=== PATIENT | female | born 1945 | race Caucasian/White ===

== ENCOUNTER 2017-07-10 00:06 | Observation (INO) | payer OTHER ==
[~2017-07-10] VITALS: Ht 149.9 cm; Wt 78.9 kg
[~2017-07-10 00:06] MED LIST: ASPCH81X PO; CALC500C73 PO; CARV6.252 PO; CHOL100010 PO; HYDR25TA5 PO; LEVO25TA5 PO; LISI-789 PO; PANT40TA PO; PYRI100T4 PO
[2017-07-10] MEDS ORDERED: CHOL20007 PO (00:55)
[2017-07-10] MEDS ORDERED: CALC500C3 PO (00:57)
[2017-07-10 01:10] LABS: BASO % 0.2 %; BASO ABS # 0.01 K/uL (0-0.2); COMPLETE YES; EOS % 1.8 %; HEMATOCRIT 41.9 % (37-47); IG% 0.2 %; LYMPH % 34.6 %; MEAN CELL VOLUME 98.6 fL (80-100); MEAN CORPUSCULAR HEMOGLOBIN 31.5 pg (25-34); MEAN PLATELET VOLUME 10.2 fL (7.4-10.4); MONO % 8.5 %; NEUT % 54.7 %; PLATELET COUNT 180 K/uL (130-400); RED BLOOD COUNT 4.25 M/uL (4.2-5.4); WHITE BLOOD COUNT 4.92 K/uL (4.8-10.8)
[2017-07-10 01:30] LABS: ALT/SGPT 22 U/L (12-78); AST/SGOT 24 U/L (15-37); BLOOD UREA NITROGEN 17 mg/dl (7-18); BUN/CREATININE RATIO 17.7 (10-20); CALCIUM 8.8 mg/dl (8.5-10.1); CARBON DIOXIDE 30 mmol/L (21-32); CHLORIDE 99 mmol/L (98-107); CREATININE 0.98 mg/dl (0.60-1.20); GLUCOSE 111 mg/dl (70-99); MAGNESIUM 1.8 mg/dl (1.8-2.4); POTASSIUM 3.4 mmol/L (3.5-5.1); SODIUM 138 mmol/L (136-145)
[2017-07-10 01:35] LABS: ALB/GLOB RATIO 0.9 (0.9-2); ALKALINE PHOSPHATASE 61 U/L (45-117)
[2017-07-10 02:18] LABS: PROTHROMBIN TIME (PATIENT) 10.9 SECONDS (9.0-12.0)
[2017-07-10 03:20] LABS: URINE APPEARANCE CLEAR (CLEAR); URINE BILIRUBIN NEG (NEG); URINE COLOR YELLOW; URINE NITRITE NEG (NEG); URINE SPECIFIC GRAVITY 1.015 (1.000-1.030); UROBILINOGEN NEG (NEG); ZZUR CULT IF INDIC CLEAN CATCH NO
[2017-07-10 03:34] LABS: MANUAL MICROSCOPIC REQUIRED? NO; REVIEW REQ? NO
[2017-07-10] MEDS ORDERED: POTASSIUM CHLORIDE 10 MEQ TABCR PO STA (04:47)
[2017-07-10] MEDS ORDERED: POTASSIUM CHLORIDE 10 MEQ TABCR ONE (05:08)
[2017-07-10] MEDS ORDERED: CLONAZEPAM 0.5 MG TAB PO PRN (05:15)
[2017-07-10] MEDS ORDERED: IV FLUIDS COMPLETED PRN (05:45)
[2017-07-10 05:58] VITALS: BP 153/85; PULSE 76; TEMP 36.7; O2SAT 95; Ht 149.9 cm; Wt 78.9 kg
--- NOTE | 2017-07-10 06:01 | EMERGENCY ROOM VISIT NOTE ---
History Report prepared by Evelia: Lisseth Gaston Under the Supervision of: Dr. Kiera Blanca D.O. First contact with patient: 00:28 Chief Complaint: DIZZY Stated Complaint: LIGHT HEADED, PAIN IN ARM, WEAKNESS IN LEGS Nursing Triage Summary: c/o lightheadedness , pain in left arm, and discomfort in chest around 2130 last night. patient states she is having a pacemaker placed in july. History of Present Illness The patient is a 72 year old female who presents to the Emergency Room with complaints of intermittent dizziness for the past week. The patient had an echocardiogram last week. She was given a dye. Right after the echo, she started getting back spasms between her shoulders. She has never had these spasms before. She got up after the echo and her legs felt weak. She was able to walk down the quick, but her legs continued to feel weak. She has been feeling SOB with going up and down the steps at home since the echo. She has never felt this SOB before. She has been feeling lightheaded like she might pass out at times. This is not related to activity and has happened when she is at rest. She also feels off balance at times. She has chest heaviness sometimes. She also has some left arm weakness. She denies any leg pain, increased leg swelling, numbness, or tingling. She does have some leg swelling at baseline. She is on a water pill. She had some chills today. Yesterday she noticed that her arms were cold. Her arms did not change colors. She denies any falls. She has been having muscle spasms in her neck since October. She is scheduled for an MRI. She is getting a pacemaker defibrillator next month. Her heart functions at 20-24%. She has a history of PVCs and bundle branch block. She has not had a heart attack. She has had 3 cardiac catheterizations before which showed no blockage. She denies any recent medication changes. Source of History: patient Onset: 1 week ago Position: other (global) Quality: other (dizziness) Timing: intermittent Associated Symptoms: + chills, + chest pain, + SOB, + weakness, No numbness Note: Pt reports arms feel cold. Review of Systems See HPI for pertinent positives & negatives. A total of 10 systems reviewed and were otherwise negative. Past Medical & Surgical Medical Problems: (1) Breast cancer (2) Chest pain (3) GERD (gastroesophageal reflux disease) (4) HTN (hypertension) (5) Hypothyroidism (6) Nonischemic cardiomyopathy Surgical Problems: (1) S/P mastectomy Family History No pertinent family history stated. Social History Smoking Status: Never Smoker Marital Status: Current/Historical Medications Scheduled Aspirin (Aspirin Chewable), 81 MG PO QAM Calcium Carbonate (Tums), 1,250 MG PO DAILY Carvedilol (Coreg), 6.25 MG PO BID Cholecalciferol (Vitamin D3), 2,000 UNITS PO DAILY Hydrochlorothiazide (Hydrochlorothiazide), 1 TAB PO QAM Levothyroxine Sodium (Levothyroxine Sodium), 1 TAB PO QAM Lisinopril (Zestril), 1 TAB PO QAM Pantoprazole (Protonix), 40 MG PO QAM Pyridoxine (Vitamin B6), 100 MG PO QAM Allergies Coded Allergies: Adhesives (Verified Allergy, Unknown, WELTS AND PULLS SKIN, 07/10/17) BEE STING (Verified Allergy, Unknown, SWELLING, 07/10/17) Iodinated Diagnostic Agents (Verified Allergy, Unknown, HIVES, 07/10/17) Physical Exam Vital Signs Date Time Temp Pulse Resp B/P (MAP) Pulse Ox O2 Delivery O2 Flow Rate FiO2 07/10/17 04:33 73 07/10/17 04:21 78 20 141/98 98 Room Air 07/10/17 04:17 78 141/81 80 143/98 88 141/98 07/10/17 03:03 82 20 143/81 98 Room Air 07/10/17 01:24 74 07/10/17 01:18 69 20 153/78 94 Room Air 07/10/17 00:35 83 07/10/17 00:14 36.6 80 18 154/89 95 Room Air Physical Exam GENERAL: alert, well appearing, well nourished, no distress, non-toxic EYE EXAM: normal conjunctiva, PERRL and EOM's grossly intact OROPHARYNX: no exudate, no erythema, lips, buccal mucosa, and tongue normal and mucous membranes are moist NECK: supple, no nuchal rigidity, no adenopathy, non-tender LUNGS: Clear to auscultation. Normal chest wall mechanics HEART: no murmurs, S1 normal and S2 normal. Frequent PVCs on tele. ABDOMEN: abdomen soft, non-tender, normo-active bowel sounds, no masses, no rebound or guarding. BACK: Back is symmetrical on inspection and there is no deformity, no midline tenderness, no CVA tenderness. SKIN: no rashes and no bruising UPPER EXTREMITIES: upper extremities are grossly normal. LOWER EXTREMITIES: No pitting edema. NEURO EXAM: Normal sensorium, cranial nerves II-XII grossly intact, 5/5 strength , no ataxia, no subjective sensory difference. No obvious facial droop. No slurred speech. Medical Decision & Procedures ER Provider Diagnostic Interpretation: X-ray: I interpreted the following studies. Chest: A two view study of the chest was reviewed and was negative for cardiomegaly, effusion, or wide mediastinum. Slightly increased interstitial markings bilaterally. Radiology results have been interpreted by the [facility] radiologist and reviewed by me. CT Head: No ICH, mass effect, or edema. No skull fracture. Visualized sinuses and mastoid air cells are clear. Laboratory Results 07/10/17 00:25 Red Blood Count 4.25, Mean Corpuscular Volume 98.6, Mean Corpuscular Hemoglobin 31.5, Mean Corpuscular Hemoglobin Concent 32.0, Mean Platelet Volume 10.2, Neutrophils (%) (Auto) 54.7, Lymphocytes (%) (Auto) 34.6, Monocytes (%) (Auto) 8.5, Eosinophils (%) (Auto) 1.8, Basophils (%) (Auto) 0.2, Neutrophils # (Auto) 2.69, Lymphocytes # (Auto) 1.70, Monocytes # (Auto) 0.42, Eosinophils # (Auto) 0.09, Basophils # (Auto) 0.01 Test 07/10/17 00:25 07/10/17 01:27 07/10/17 03:05 White Blood Count 4.92 K/uL (4.8-10.8) Red Blood Count 4.25 M/uL (4.2-5.4) Hemoglobin 13.4 g/dL (12.0-16.0) Hematocrit 41.9 % (37-47) Mean Corpuscular Volume 98.6 fL (80-100) Mean Corpuscular Hemoglobin 31.5 pg (25-34) Mean Corpuscular Hemoglobin Concent 32.0 g/dl (32-36) Platelet Count 180 K/uL (130-400) Mean Platelet Volume 10.2 fL (7.4-10.4) Neutrophils (%) (Auto) 54.7 % Lymphocytes (%) (Auto) 34.6 % Monocytes (%) (Auto) 8.5 % Eosinophils (%) (Auto) 1.8 % Basophils (%) (Auto) 0.2 % Neutrophils # (Auto) 2.69 K/uL (1.4-6.5) Lymphocytes # (Auto) 1.70 K/uL (1.2-3.4) Monocytes # (Auto) 0.42 K/uL (0.11-0.59) Eosinophils # (Auto) 0.09 K/uL (0-0.5) Basophils # (Auto) 0.01 K/uL (0-0.2) RDW Standard Deviation 49.9 fL (36.4-46.3) RDW Coefficient of Variation 14.0 % (11.5-14.5) Immature Granulocyte % (Auto) 0.2 % Immature Granulocyte # (Auto) 0.01 K/uL (0.00-0.02) Magnesium Level 1.8 mg/dl (1.8-2.4) Total Bilirubin 0.3 mg/dl (0.2-1) Aspartate Amino Transf (AST/SGOT) 24 U/L (15-37) Alanine Aminotransferase (ALT/SGPT) 22 U/L (12-78) Alkaline Phosphatase 61 U/L (45-117) Pro-B-Type Natriuretic Peptide 2251 pg/ml (0-900) Total Protein 7.3 gm/dl (6.4-8.2) Albumin 3.4 gm/dl (3.4-5.0) Globulin 3.9 gm/dl (2.5-4.0) Albumin/Globulin Ratio 0.9 (0.9-2) Prothrombin Time 10.9 SECONDS (9.0-12.0) Prothromb Time International Ratio 1.0 (0.9-1.1) Urine Color YELLOW Urine Appearance CLEAR (CLEAR) Urine pH 7.0 (4.5-7.5) Urine Specific [place] 1.015 (1.000-1.030) Urine Protein NEG (NEG) Urine Glucose (UA) NEG (NEG) Urine Ketones NEG (NEG) Urine Occult Blood NEG (NEG) Urine Nitrite NEG (NEG) Urine Bilirubin NEG (NEG) Urine Urobilinogen NEG (NEG) Urine Leukocyte Esterase TRACE (NEG) Urine WBC (Auto) 1-5 /hpf (0-5) Urine RBC (Auto) 0-4 /hpf (0-4) Urine Hyaline Casts (Auto) 0 /lpf (0-5) Urine Epithelial Cells (Auto) 5-10 /lpf (0-5) Urine Bacteria (Auto) NEG (NEG) Laboratory results per my review. ECG Indication: weakness Rate (beats per minute): 72 Rhythm: sinus rhythm Findings: LBBB, PVC (frequent), no acute ischemic change, other (normal axis) Comparison ECG Date: no prior available ED Course 0032: The patient was evaluated in room A10. A complete history and physical exam was performed. 0048: According to case management, we no longer have access to [facility] patient records. 0313: I reevaluated the patient. I updated her on the results. 0431: I reviewed the patient's case with Dr. Joe, [facility]. He will evaluate the patient for further management. Medical Decision Differential Diagnosis includes but is not limited to dehydration, stroke, anemia, hypoglycemia, hyponatremia, hypernatremia, urinary tract infection, pneumonia, bronchitis, sepsis, gastroenteritis, additional abdominal pathology, metabolic abnormalities and infections. Patient with long complicated medical history, acutely more complicated by our inability to access her prior and most recent records including an echo as well as blood work. Patient with worsening symptoms here, already scheduled to see cardiology in 2 weeks. It seems less likely patient's symptoms acutely worsened over this last 2 weeks, or that she is having a complication related to the echo, patient denies any other medication changes, dietary changes, illness, or trauma to otherwise explain her symptoms. Doubt ACS, CVA, dissection, bacteremia/sepsis. Patient with elevated BNP, however this is most likely chronic given her cardiomyopathy and poor EF, however I cannot see prior records to compare. Patient not hypoxic and stable vital signs here. Discussed the situation with the [facility]ist who will evaluate the patient and check old records to help determine disposition. Medication Reconcilliation Current Medication List: was personally reviewed by me Blood Pressure Screening Patient's blood pressure: Elevated blood pressure Blood pressure disposition: Elevated BP felt to be situational Consults Time Called: [phone] Consulting Physician: Dr. Joe [facility] hospitalist Returned Call: [phone] I reviewed the patient's case with him. He will evaluate the patient for further management. Impression Primary Impression: Lower extremity weakness Additional Impressions: Lightheadedness Headache Back pain Cardiomyopathy [id number] (dyspnea on exertion) Scribe Attestation The scribe's documentation has been prepared under my direction and personally reviewed by me in its entirety. I confirm that the note above accurately reflects all work, treatment, procedures, and medical decision making performed by me. Departure Information Dispostion Being Evaluated By Hospitalist Jimi Porter M.D. (PCP) Patient Instructions My [facility] Problem Qualifiers Primary Impression: Lower extremity weakness Laterality: bilateral Qualified Codes: R29.898 - Other symptoms and signs involving the musculoskeletal system Additional Impressions: Headache Headache type: unspecified Headache chronicity pattern: episodic headache Intractability: not intractable Qualified Codes: R51 - Headache Back pain Back pain location: low back pain Chronicity: chronic Back pain laterality : bilateral Sciatica presence: without sciatica Qualified Codes: M54.5 - Low back pain; G89.29 - Other chronic pain Cardiomyopathy Cardiomyopathy type: unspecified Qualified Codes: I42.9 - Cardiomyopathy, unspecified
--- NOTE | 2017-07-10 06:22 | History and Physical ---
History & Physical Date & Time of Service: Jul 10, 2017 at 06:07 Chief Complaint: Chest Pain, Nonischemic Cardiomyopathy Primary Care Physician: Jimi Woodward M.D. History of Present Illness Source: patient, family, clinic records, hospital records This is a 72 year old female with a PMH of nonischemic cardiomyopathy with an EF of 20-24%, HTN, hypothyroidism, cervicalgia - presents with a few week history of lightheadedness, weakness, and muscle aches. On 06/29 - she had an echo, which showed her EF to be low at 20-24%. She was to see transition specialist on July 22 for a biventricular pacer placement. She states that since the echo w / contrast - she's been having unusual symptoms including dyspnea with exertion , chest pressure, numbness and weakness in b/l LE and LUE. She states that she was doing fine prior to this. As per , he states that he is stressed due to the news of her low EF as well as having to take care of him as he has a broken R wrist. She states that it's possible stress is playing a part, though she is not sure if that is the only thing. Currently, she is resting comfortably. Past Medical/Surgical History Medical Problems: (1) Breast cancer Status: Resolved (2) GERD (gastroesophageal reflux disease) Status: Chronic (3) HTN (hypertension) Status: Chronic (4) Hypothyroidism Status: Chronic Surgical Problems: (1) S/P mastectomy Status: Resolved Social History Smoking Status: Never Smoker Marital Status: Multi-Drug Resistant Organisms History of MDRO: No Allergies Coded Allergies: Adhesives (Verified Allergy, Unknown, WELTS AND PULLS SKIN, 07/10/17) BEE STING (Verified Allergy, Unknown, SWELLING, 07/10/17) Iodinated Diagnostic Agents (Verified Allergy, Unknown, HIVES, 07/10/17) Home Medications Scheduled Aspirin (Aspirin Chewable), 81 MG PO QAM Calcium Carbonate (Tums), 1,250 MG PO DAILY Carvedilol (Coreg), 6.25 MG PO BID Cholecalciferol (Vitamin D3), 2,000 UNITS PO DAILY Hydrochlorothiazide (Hydrochlorothiazide), 1 TAB PO QAM Levothyroxine Sodium (Levothyroxine Sodium), 1 TAB PO QAM Lisinopril (Zestril), 1 TAB PO QAM Pantoprazole (Protonix), 40 MG PO QAM Pyridoxine (Vitamin B6), 100 MG PO QAM Review of Systems Constitutional: No fever, No chills, No sweats, No weight loss, No weakness, No fatigue Respiratory: + shortness of breath, + dyspnea on exertion, No cough, No sputum , No wheezing, No dyspnea at rest, No hemoptysis Cardiovascular: + chest pain, No orthopnea, No edema, No palpitations Abdomen: No pain, No nausea, No vomiting, No diarrhea, No constipation, No GI bleeding Musculoskeletal: + joint pain (chronic neck pain), + muscle pain (bilateral LE muscle weakness) Genitourinary - Female: No dysuria, No urinary frequency, No urinary urgency, No urinary incontinence, No urinary retention, No hematuria Neurologic: + weakness, + numbness/tingling, No memory loss, No paralysis, No vertigo, No balance problems Psychiatric: No depression symptoms Endocrine: No fatigue Hematologic / Lymphatic: No abnormal bleeding/bruising Integumentary: No rash Allergic / Immunologic: No environmental allergies, No seasonal allergies Physical Exam Vital Signs Date Time Temp Pulse Resp B/P (MAP) Pulse Ox O2 Delivery O2 Flow Rate FiO2 07/10/17 05:35 82 20 152/89 95 Room Air 07/10/17 04:33 73 07/10/17 04:21 78 20 141/98 98 Room Air 07/10/17 04:17 78 141/81 80 143/98 88 141/98 07/10/17 03:03 82 20 143/81 98 Room Air 07/10/17 01:24 74 07/10/17 01:18 69 20 153/78 94 Room Air 07/10/17 00:35 83 07/10/17 00:14 36.6 80 18 154/89 95 Room Air General Appearance: WD/WN, no apparent distress Head: normocephalic, atraumatic Eyes: normal inspection ENT: hearing grossly normal Neck: supple Respiratory/Chest: chest non-tender, lungs clear, normal breath sounds, no respiratory distress, no accessory muscle use Cardiovascular: regular rate, rhythm, no edema, no gallop, no JVD, no murmur, normal peripheral pulses Abdomen/GI: normal bowel sounds, non tender, soft Extremities/Musculoskelatal: normal inspection, no calf tenderness, normal capillary refill, no pedal edema, normal range of motion Neurologic/Psych: network consultant II-XII nml as tested, no motor/sensory deficits, alert, normal mood/affect, oriented x 3, + pertinent finding Skin: normal color Lymphatic: no adenopathy Diagnostics Laboratory Results Results Past 24 Hours Test 07/10/17 00:25 07/10/17 01:27 07/10/17 03:05 Range/Units White Blood Count 4.92 4.8-10.8 K/uL Red Blood Count 4.25 4.2-5.4 M/uL Hemoglobin 13.4 12.0-16.0 g/dL Hematocrit 41.9 37-47 % Mean Corpuscular Volume 98.6 80-100 fL Mean Corpuscular Hemoglobin 31.5 25-34 pg Mean Corpuscular Hemoglobin Concent 32.0 32-36 g/dl Platelet Count 180 130-400 K/uL Mean Platelet Volume 10.2 7.4-10.4 fL Neutrophils (%) (Auto) 54.7 % Lymphocytes (%) (Auto) 34.6 % Monocytes (%) (Auto) 8.5 % Eosinophils (%) (Auto) 1.8 % Basophils (%) (Auto) 0.2 % Neutrophils # (Auto) 2.69 1.4-6.5 K/uL Lymphocytes # (Auto) 1.70 1.2-3.4 K/uL Monocytes # (Auto) 0.42 0.11-0.59 K/uL Eosinophils # (Auto) 0.09 0-0.5 K/uL Basophils # (Auto) 0.01 0-0.2 K/uL RDW Standard Deviation 49.9 36.4-46.3 fL RDW Coefficient of Variation 14.0 11.5-14.5 % Immature Granulocyte % (Auto) 0.2 % Immature Granulocyte # (Auto) 0.01 0.00-0.02 K/uL Sodium Level 138 136-145 mmol/L Potassium Level 3.4 3.5-5.1 mmol/L Chloride Level 99 98-107 mmol/L Carbon Dioxide Level 30 21-32 mmol/L Anion Gap 9.0 3-11 mmol/L Blood Urea Nitrogen 17 7-18 mg/dl Creatinine 0.98 0.60-1.20 mg/dl Est Creatinine Clear Calc Drug Dose 46.9 ml/min Estimated GFR () 66.3 Estimated GFR (Non- 57.2 BUN/Creatinine Ratio 17.7 10-20 Random Glucose 111 70-99 mg/dl Calcium Level 8.8 8.5-10.1 mg/dl Magnesium Level 1.8 1.8-2.4 mg/dl Total Bilirubin 0.3 0.2-1 mg/dl Aspartate Amino Transf (AST/SGOT) 24 15-37 U/L Alanine Aminotransferase (ALT/SGPT) 22 12-78 U/L Alkaline Phosphatase 61 45-117 U/L Troponin I < 0.015 0-0.045 ng/ml Pro-B-Type Natriuretic Peptide 2251 0-900 pg/ml Total Protein 7.3 6.4-8.2 gm/dl Albumin 3.4 3.4-5.0 gm/dl Globulin 3.9 2.5-4.0 gm/dl Albumin/Globulin Ratio 0.9 0.9-2 Prothrombin Time 10.9 9.0-12.0 SECONDS Prothromb Time International Ratio 1.0 0.9-1.1 Urine Color YELLOW Urine Appearance CLEAR CLEAR Urine pH 7.0 4.5-7.5 Urine Specific [place] 1.015 1.000-1.030 Urine Protein NEG NEG Urine Glucose (UA) NEG NEG Urine Ketones NEG NEG Urine Occult Blood NEG NEG Urine Nitrite NEG NEG Urine Bilirubin NEG NEG Urine Urobilinogen NEG NEG Urine Leukocyte Esterase TRACE NEG Urine WBC (Auto) 1-5 0-5 /hpf Urine RBC (Auto) 0-4 0-4 /hpf Urine Hyaline Casts (Auto) 0 0-5 /lpf Urine Epithelial Cells (Auto) 5-10 0-5 /lpf Urine Bacteria (Auto) NEG NEG Diagnostic Radiology Head CT = no acute findings CXR normal EKG Sinus rhythm with frequent Premature ventricular complexes Left bundle branch block No change from prior EKG Impression Assessment and Plan This is a 72 year old female with a PMH of nonischemic cardiomyopathy with an EF of 20-24%, HTN, hypothyroidism, cervicalgia - presents with a few week history of lightheadedness, weakness, and muscle aches. Lightheadedness patient presents with lightheadedness as well as a multitude of symptoms including muscle aches, weakness, numbness/tingling, chest pressure/dyspnea on exertion some of these symptoms are likely related to her nonischemic cardiomyopathy and low EF she may also have some underlying anxiety due to stress and the news of pacer placement added Klonopin PRN as needed - may need this on discharge for short term Chest Pressure r/o ACS will monitor in tele trend cardiac enzymes recent echo noted on 06/29 with EF of 20-24% cardiology consulted Nonischemic Cardiomyopathy EF of 20-24% currently on Coreg and Lisinopril which we will keep she is to have a biventricular pacer on July 22 cardiology consulted for possible insertion while admitted here HTN continue HCTZ, Coreg, Lisinopril Hypothyroidism TSH wnl as outpatient continue current dose of Synthroid DVT ppx Lovenox FULL CODE VTE Prophylaxis VTE Risk Assessment Done? Y/N: Yes Risk Level: Low
[2017-07-10] MEDS: LEVOTHYROXINE 25 MCG TAB PO SCH (06:32)
--- NOTE | 2017-07-10 06:48 | DIAGNOSTIC IMAGING REPORT ---
CHEST ONE VIEW PORTABLE CLINICAL HISTORY: sob dyspnea COMPARISON STUDY: No previous studies for comparison. FINDINGS: The bones soft tissues and hemidiaphragms are normal. The cardiomediastinal silhouette is normal. The lungs are clear. The pulmonary vasculature is normal. IMPRESSION: Negative chest. The above report was generated using voice recognition software. It may contain grammatical, syntax or spelling errors. Electronically signed by: Jimi Gonzalez M.D. 07/10/2017 6:47 AM Dictated Date/Time: 07/10/2017 6:47 AM
--- NOTE | 2017-07-10 07:07 | DIAGNOSTIC IMAGING REPORT ---
CT OF THE HEAD WITHOUT CONTRAST CLINICAL HISTORY: Frontal headache. Lightheaded. COMPARISON STUDY: No previous studies for comparison. CT DOSE: 537.48 mGy.cm TECHNIQUE: Helical axial images of the head were obtained without IV contrast. Automated exposure control was utilized for the study. A dose lowering technique was utilized adhering to the principles of ALARA. FINDINGS: No acute intracranial hemorrhage, midline shift or mass effect is present. Ventricular system is normal. Basilar cisterns are patent. There are no extra-axial collections. Figueroa-white differentiation is maintained. There are no findings to suggest acute dural sinus thrombosis or acute territorial infarct. There is no calvarial fracture. Visualized portions of the sinuses and mastoid air cells are clear. IMPRESSION: No acute intracranial findings. Electronically signed by: Golden Larsen M.D. 07/10/2017 7:05 AM Dictated Date/Time: 07/10/2017 7:04 AM
[2017-07-10 07:24] VITALS: BP 133/74; PULSE 79; TEMP 36.9; O2SAT 93
[2017-07-10] MEDS ORDERED: LISINOPRIL 2.5 MG TAB PO SCH (09:00)
[2017-07-10] MEDS: CALCIUM CARBONATE 500 MG CHEWABLE PO SCH (09:46)
[2017-07-10] MEDS: PANTOprazole SOD 40 MG TAB PO SCH (09:46)
[2017-07-10] MEDS: CARVEDILOL 6.25 MG TAB PO SCH ×2 (09:46→20:50)
[2017-07-10] MEDS: HYDROCHLOROTHIAZIDE 25 MG TAB PO SCH (09:46)
[2017-07-10] MEDS: PYRIDOXINE HCL 50 MG TAB PO SCH (09:46)
[2017-07-10] MEDS: ENOXAPARIN 40 MG/0.4 ML SYR SC SCH (09:47)
[2017-07-10] MEDS: ASPIRIN 81 MG CHEW PO SCH (09:51)
--- NOTE | 2017-07-10 10:42 | CARDIOLOGY CONSULTATION ---
DATE OF CONSULTATION: 07/10/2017 CONSULTATION FOR: [facility] hospitalist. REASON FOR CONSULTATION: Weakness and dizziness. HISTORY OF PRESENT ILLNESS: This is a 72-year-old female who is usually followed by Dr. Gonsalez through the [facility]. She has a history of a nonischemic cardiomyopathy with an estimated left ventricular ejection fraction of 20%-24%. She also has a chronic left bundle branch block. The patient underwent a routine echo on Thursday, when she had a reaction to the contrast utilized for the echo. She had back pain over her flank bilaterally, which is consistent with that reaction. It usually clears in several minutes and there is no major sequelae. The patient went home and has not been feeling well. She had seen Dr. Espinoza earlier and there was a recommendation for biventricular pacemaker, which is scheduled on July. The patient has been experiencing radicular cervical discomfort with dizziness and previously had been scheduled for an MRI by her primary care physician of the cervical spine. The patient has not had that procedure completed. She was admitted with the above symptoms along with some weakness. She has had some chronic dyspnea on exertion, which could be attributed to her cardiomyopathy. She denies orthopnea or lower extremity edema. She has had no chest pain. ALLERGIES: ADHESIVES, BEE STINGS, AND IODINATED CONTRAST DYES. PAST MEDICAL HISTORY: The patient has a history of breast cancer, which was treated with radiation and chemotherapy. As outlined above, she has had chronic cervical discomfort radiating into her arms and associated with dizziness. She has a history of GERD and hypertension. She has treated hypothyroidism and is status post mastectomy for her breast cancer. She has had a longstanding history of a nonischemic cardiomyopathy and in 2011, had a cardiac catheterization that showed normal coronaries. She has a chronic left bundle branch block and mild to moderate mitral regurgitation. SOCIAL HISTORY: She is and lives with her . She is a never smoker. FAMILY MEDICAL HISTORY: Noncontributory. REVIEW OF SYSTEMS: A 10-point review of systems is negative except for the history of chief complaint. PHYSICAL EXAMINATION: GENERAL: She is alert and oriented. VITAL SIGNS: Blood pressure is 140/90 and pulse is regular at 70 beats per minute. She is afebrile. HEENT: She is normocephalic. Pupils are equal and reactive to light. Extraocular muscles are intact bilaterally. NECK: The neck veins are flat. Carotids have good upstrokes bilaterally without bruits. Thyroid is nonpalpable. RESPIRATORY: Breath sounds equal bilaterally and clear to auscultation. CARDIOVASCULAR: Heart has a regular rhythm. Normal S1 and S2. No S3 or S4. No cardiac rubs or murmurs. GASTROINTESTINAL: Abdomen is soft and nontender without organomegaly. EXTREMITIES: Free of edema, digit clubbing, or cyanosis. NEUROLOGIC: Grossly intact. SKIN: Warm to touch. LYMPH NODES: Negative to palpation. LABORATORY DATA: Hemoglobin is 13.4, WBC count is 4.92, and platelets are 180,000. Creatinine 0.98, BUN is 17, and potassium is 3.4. IMPRESSION: 1. Nonischemic cardiomyopathy with severe systolic heart failure. 2. Left bundle branch block. 3. Scheduled for biventricular pacemaker early in July. 4. Cervical radiculopathy. 5. History of breast cancer. 6. Treated hypothyroidism. RECOMMENDATIONS: The patient was scheduled for an MRI of a cervical spine as an outpatient. I think we should do that while she is here in the hospital and have neurology see her for cervical radiculopathy. She should have the MRI here in the hospital before she has her ICD implanted, so that there is no confusion regarding the ICD and an MRI scan. She is on a very low dose of lisinopril. Her last dosage was yesterday morning. I think we should take this opportunity to switch her over to Entresto. By this evening, it will be approximately 36 hours since her last dose of the lisinopril and therefore, I think we can start Entresto tonight. We will have further recommendations following the above.
[2017-07-10 11:29] LABS: CKMB/CK RATIO 1.2 (0-3.0)
--- NOTE | 2017-07-10 11:43 | DIAGNOSTIC IMAGING REPORT ---
CERVICAL SPINE COMBO HISTORY: Pain. Neuropathy. cervical radiculopathy, hx of breast ca TECHNIQUE: Multiplanar multisequence MRI of the cervical spine was performed both before and after the use of intravenous contrast. COMPARISON STUDY: None. FINDINGS: Moderate degenerative disc changes throughout the entire cervical region. No bone marrow replacing process. Signal characteristics of the cervical cord are unremarkable. Slight heterogeneity on the inversion recovery sagittal images felt to be primarily artifactual. This is not seen on the transaxial images. No abnormal postcontrast sagittal enhancement. C2-C3: No significant central canal or neural foraminal narrowing. C3-C4: Slight broad-based disc bulge. Contact with but no deformity of the cervical cord. Neural foramina patent bilaterally. C4-C5: Minimal disc bulge. No significant impact with any no element. C5-C6: Mild broad-based disc herniation. Mild impact anterior cervical cord with narrowing of the neuroforamina bilaterally area C6-C7: Moderate broad-based right central disc herniation. Mild impact anterior aspect cervical cord. Moderate narrowing of the neuroforamina bilaterally. C7-T1: No significant central canal or neural foraminal narrowing. IMPRESSION: 1. Mild broad-based disc herniations C5-C6 and C6-C7. 2. At both levels there is moderate narrowing of the neuroforamina bilaterally and minimal impact upon the anterior cervical cord. 3. No abnormal postcontrast enhancement. 4. Generalized degenerative disc change throughout The above report was generated using voice recognition software. It may contain grammatical, syntax or spelling errors. Electronically signed by: Jimi Gonzalez M.D. 07/10/2017 11:42 AM Dictated Date/Time: 07/10/2017 11:38 AM
[2017-07-10] MEDS ORDERED: GADAVIST IV PRN (11:45)
[2017-07-10 11:53] VITALS: BP 124/72; PULSE 66; TEMP 36.8; O2SAT 94
--- NOTE | 2017-07-10 15:34 | Progress Note ---
Medicine Progress Note Date & Time of Visit: Jul 10, 2017 at 11:48. Subjective Pt was seen and examined Sitting in bed comfortable with no distress Pt said she feels better today compared to last night when she came She denies any chest pain, palpitation, dizziness and SOB Objective Last 8 Hrs Date Time Temp Pulse Resp B/P (MAP) Pulse Ox O2 Delivery O2 Flow Rate FiO2 07/10/17 12:30 Room Air 07/10/17 11:53 36.8 66 20 124/72 (89) 94 Room Air 07/10/17 08:30 Room Air 07/10/17 07:24 36.9 79 20 133/74 (93) 93 Room Air Physical Exam: General- No acute distress Head- atraumatic Eyes- PERRL, EOMI ENT- oropharynx clear Neck- supple, no JVD Lungs- clear to auscultation Heart- regular rhythm Abdomen- normal bowel sounds, soft Extremities- no calf tenderness Neuro- alert, oriented x 3; PERRL, EOMI; no facial palsy Skin- warm & dry Laboratory Results: Last 24 Hours Test 07/10/17 00:25 07/10/17 01:27 07/10/17 03:05 07/10/17 10:36 White Blood Count 4.92 K/uL Red Blood Count 4.25 M/uL Hemoglobin 13.4 g/dL Hematocrit 41.9 % Mean Corpuscular Volume 98.6 fL Mean Corpuscular Hemoglobin 31.5 pg Mean Corpuscular Hemoglobin Concent 32.0 g/dl Platelet Count 180 K/uL Mean Platelet Volume 10.2 fL Neutrophils (%) (Auto) 54.7 % Lymphocytes (%) (Auto) 34.6 % Monocytes (%) (Auto) 8.5 % Eosinophils (%) (Auto) 1.8 % Basophils (%) (Auto) 0.2 % Neutrophils # (Auto) 2.69 K/uL Lymphocytes # (Auto) 1.70 K/uL Monocytes # (Auto) 0.42 K/uL Eosinophils # (Auto) 0.09 K/uL Basophils # (Auto) 0.01 K/uL RDW Standard Deviation 49.9 fL RDW Coefficient of Variation 14.0 % Immature Granulocyte % (Auto) 0.2 % Immature Granulocyte # (Auto) 0.01 K/uL Sodium Level 138 mmol/L Potassium Level 3.4 mmol/L Chloride Level 99 mmol/L Carbon Dioxide Level 30 mmol/L Anion Gap 9.0 mmol/L Blood Urea Nitrogen 17 mg/dl Creatinine 0.98 mg/dl Est Creatinine Clear Calc Drug Dose 46.9 ml/min Estimated GFR () 66.3 Estimated GFR (Non- 57.2 BUN/Creatinine Ratio 17.7 Random Glucose 111 mg/dl Calcium Level 8.8 mg/dl Magnesium Level 1.8 mg/dl Total Bilirubin 0.3 mg/dl Aspartate Amino Transf (AST/SGOT) 24 U/L Alanine Aminotransferase (ALT/SGPT) 22 U/L Alkaline Phosphatase 61 U/L Troponin I < 0.015 ng/ml < 0.015 ng/ml Pro-B-Type Natriuretic Peptide 2251 pg/ml Total Protein 7.3 gm/dl Albumin 3.4 gm/dl Globulin 3.9 gm/dl Albumin/Globulin Ratio 0.9 Prothrombin Time 10.9 SECONDS Prothromb Time International Ratio 1.0 Urine Color YELLOW Urine Appearance CLEAR Urine pH 7.0 Urine Specific [place] 1.015 Urine Protein NEG Urine Glucose (UA) NEG Urine Ketones NEG Urine Occult Blood NEG Urine Nitrite NEG Urine Bilirubin NEG Urine Urobilinogen NEG Urine Leukocyte Esterase TRACE Urine WBC (Auto) 1-5 /hpf Urine RBC (Auto) 0-4 /hpf Urine Hyaline Casts (Auto) 0 /lpf Urine Epithelial Cells (Auto) 5-10 /lpf Urine Bacteria (Auto) NEG Total Creatine Kinase 194 U/L Creatine Kinase MB 2.3 ng/ml Creatine Kinase MB Ratio 1.2 Assessment & Plan Nonischemic Cardiomyopathy with Severe Systolic heart failure Present with chest pressure and dyspnea on presentation Recent echo noted on 06/29 with EF of 20-24% Troponin negativex2 cardiology on board Lisinopril d/c by cardio Starting on sto Continue Coreg Schedule for biventricular pacer on July 22 Continue monitor in telemetry Lightheadedness Resolved Anxiety Pt has been under a lot of stress lately Staring Elie prn Neck Tenderness MRI of the neck showed Mild broad-based disc herniations C5-C6 and C6-C7. At both levels there is moderate narrowing of the neuroforaminal bilaterally and minimal impact upon the anterior cervical cord. Neuro consulted stable Chest Pressure Possible related to anxiety Troponin negative EKG showed no ST changes recent echo noted on 06/29 with EF of 20-24% On ASA and carvedilol Resolved HTN continue HCTZ, Coreg D/C Lisinopril Starting on Entresto Hypothyroidism TSH wnl as outpatient continue current dose of Synthroid DVT ppx Lovenox FULL CODE Consultants: cardio Current Inpatient Medications: Current Inpatient Medications Medications (Trade) Dose Ordered Sig/Zayra Route Start Time Stop Time Status Last Admin Dose Admin Enoxaparin Sodium (Lovenox Inj) 40 mg Q24H SC 07/10/17 09:00 08/09/17 08:59 07/10/17 09:47 40 MG Aspirin (Aspirin Chew) 81 mg QAM PO 07/10/17 09:00 08/09/17 08:59 07/10/17 09:51 81 MG Calcium Carbonate (Tums Chew Tab) 1,250 mg DAILY PO 07/10/17 09:00 08/09/17 08:59 07/10/17 09:46 1,250 MG Carvedilol (Coreg Tab) 6.25 mg BID PO 07/10/17 09:00 08/09/17 08:59 07/10/17 09:46 6.25 MG Hydrochlorothiazide (Hydrochlorothiazide Tab) 25 mg QAM PO 07/10/17 09:00 08/09/17 08:59 07/10/17 09:46 25 MG Levothyroxine Sodium (Synthroid Tab) 25 mcg DAILYBB PO 07/10/17 06:00 08/09/17 05:59 07/10/17 06:32 25 MCG Pantoprazole Sodium (Protonix Tab) 40 mg QAM PO 07/10/17 09:00 08/09/17 08:59 07/10/17 09:46 40 MG Pyridoxine HCl (Vitamin B-6 Tab) 100 mg QAM PO 07/10/17 09:00 08/09/17 08:59 07/10/17 09:46 100 MG Clonazepam (Klonopin Tab) 0.5 mg BID PRN PO 07/10/17 05:15 08/09/17 05:14 Miscellaneous (Iv Fluids Completed) 1 ea PRN PRN N/A 07/10/17 05:45 07/10/18 05:44 Sacubitril/ Valsartan (Entresto 24-26 Mg) 1 tab BID PO 07/10/17 21:00 08/09/17 20:59 Gadobutrol (Gadavist) 7 mmol UD PRN IV 07/10/17 11:45 07/14/17 11:44
[2017-07-10 15:45] VITALS: BP 135/85; PULSE 79; TEMP 36.9; O2SAT 95
--- NOTE | 2017-07-10 16:28 | PROGRESS NOTE ---
DATE: 07/10/2017 CONSULTATION FOR: Dr. Waller and Dr. Waggoner. HISTORY OF PRESENT ILLNESS: Eduarda is a 72-year-old patient of Dr. Jimi Woodward'bobo and has a history of remote breast cancer, gastroesophageal reflux, hypertension, hypothyroidism and is post-mastectomy and has a nonischemic severe cardiomyopathy with markedly reduced ejection fraction. Other problems include cervicalgia which has been present since October involves the upper cervical spine, occipital scalp, trapezius muscles, but really does not have any consistent radiation into the arms or shoulders. She has gone through a series of outpatient evaluation including cervical spine films and has had physical therapy, was on a muscle relaxant which helped some of the associated headaches that point, she no longer needs it and is on perhaps to have an outpatient MRI and then outpatient pain management. She was brought in for lightheadedness, weakness, muscle aches and has been seen by cardiology. She probably has had a stressful response to the fact that her ejection fraction is now felt to be even worse and she is on that for a cardiac implantation as per Dr. Waggoner. This is going to be done, I believe next week. Dr. Waggoner upon seeing her in consultation felt that an MRI needs to be done before the cardiac pacer defibrillator device was inserted and it was done now. I reviewed this films and report. There is some mid cervical degenerative disc disease not out of keeping for age, there is no significant cord compromise, cord signal and no major lateral disc protrusion. He has asked neurology to take a look at her and make any recommendations for further treatment. SOCIAL HISTORY: Reveals her to be a never smoker. She is . She does not consume ethanol. ALLERGIES: INCLUDE ADHESIVES, BEE STINGS, AND IODINATED CONTRAST AGENTS. HOME MEDICATIONS: Include aspirin, calcium carbonate, Coreg, cholecalciferol, hydrochlorothiazide, levothyroxine, lisinopril, pantoprazole, and pyridoxine. REVIEW OF SYSTEMS: Reveals no recent fevers, sweats, chills, and no significant issues referable to the head, eyes, ears, nose and throat. She does have increasing shortness of breath, dyspnea on exertion, lightheadedness and occasional chest pain. She does not have any cough or hemoptysis. She has diffuse joint pain and muscle pain in both lower extremities and also in the upper neck and occipital scalp, but steadfastly denies that she has any significant radicular symptoms involving the upper extremities on either side. She did have some chest pain radiating to left arm, but this was felt to be of cardiac origin. Neurologically, she has had no issues in the past of significance other than the headaches and the cervical pain without radicular involvement and there is nothing about her history to suggest myelopathy. There is no bowel or bladder dysfunction, etc. PHYSICAL EXAMINATION: VITAL SIGNS: On examination in the emergency room, her blood pressure 152/89, pulse was 82 and regular, respirations were 20. She was well developed, well nourished, not appear to be in acute distress. HEENT: Examination was normal. No carotid bruits were heard. NECK: Supple. LUNGS: Clear. HEART: Had a normal rhythm without gallops. ABDOMEN: Soft, nontender. EXTREMITIES: Free of edema. There were good peripheral pulses. NEUROLOGIC: Today, she is awake, alert, and oriented in 3 spheres. She has normal extraocular movements, normal visual beltran, normal facial motility and strength, clear speech. Tongue protrudes in the midline. Facial sensation is normal. Extension and rotation of the neck does not produce anything other than increased upper cervical and occipital pain. I really cannot induce any radicular discomfort by any maneuver and there is no Lhermitte's phenomenon. Reflexes in the upper extremities are normal and hypoactive but present in the lower extremity . Toe signs were downgoing. No Yary's signs are seen. Strength testing is actually excellent. I do not find any evidence for C4 through T1 weakness in either side. I do not see any atrophy or fasciculations. Sensory examination is intact to vibration, light touch and temperature. ASSESSMENT AND PLAN: Right now, I see nothing about the cervical MRI that would explain her current symptoms of upper cervical pain radiating into the occipital regions. I think a lot of this is a trapezius muscle spasm. I do not think this is a typical occipital neuralgia, but some aspects of the history suggest elements of this. I agree with the thinking that Dr. Woodward had regarding her evaluation, i.e., she probably needs to be seen by pain management and she has been seen by Dr. Rosario in the past for low back pain, has had injections with relief of symptoms and I suspect she would do well with some cervical injections as well. This will have to be on an outpatient basis and will likely be after the cardiac device is inserted Right now, neurology does not have any other suggestions. I am going to sign off the case as I do not think I would offer any medications at this point. RIVER
[2017-07-10 19:27] LABS: CKMB/CK RATIO 1.3 (0-3.0)
[2017-07-10 20:09] VITALS: BP 135/84; PULSE 85; TEMP 36.9; O2SAT 94
[2017-07-10] MEDS: SACUBITRIL-VALSARTAN 24-26 MG TAB PO SCH (20:49)
[2017-07-11 01:02] VITALS: BP 104/63; PULSE 69; TEMP 37.1; O2SAT 95
[2017-07-11 05:03] VITALS: BP 113/67; PULSE 75; TEMP 36.9; O2SAT 93
[2017-07-11] MEDS: LEVOTHYROXINE 25 MCG TAB PO SCH (05:39)
[2017-07-11 07:12] LABS: BUN/CREATININE RATIO 17.4 (10-20); CALCIUM 8.7 mg/dl (8.5-10.1); CREATININE 0.76 mg/dl (0.60-1.20); POTASSIUM 3.3 mmol/L (3.5-5.1)
[2017-07-11 07:23] VITALS: BP 111/71; PULSE 76; TEMP 36.9; O2SAT 95
[2017-07-11] MEDS ORDERED: POTASSIUM CHLORIDE 20 MEQ TABCR PO ONE (07:45)
[2017-07-11] MEDS: CARVEDILOL 6.25 MG TAB PO SCH (08:01)
[2017-07-11] MEDS: PANTOprazole SOD 40 MG TAB PO SCH (08:01)
[2017-07-11] MEDS: PYRIDOXINE HCL 50 MG TAB PO SCH (08:02)
[2017-07-11] MEDS: HYDROCHLOROTHIAZIDE 25 MG TAB PO SCH (08:02)
[2017-07-11] MEDS: SACUBITRIL-VALSARTAN 24-26 MG TAB PO SCH (08:02)
[2017-07-11] MEDS: ENOXAPARIN 40 MG/0.4 ML SYR SC SCH (08:03)
[2017-07-11] MEDS: CALCIUM CARBONATE 500 MG CHEWABLE PO SCH (08:03)
[2017-07-11] MEDS: ASPIRIN 81 MG CHEW PO SCH (08:07)
[2017-07-11 11:13] VITALS: BP 125/82; PULSE 74; TEMP 36.6; O2SAT 93
--- NOTE | 2017-07-11 14:34 | Cardiology Follow-Up ---
Subjective General Date of Service: Jul 11, 2017. Chief Complaint: follow up generalized weekness Pt evaluation today including: conversation w/ patient, conversation w/ family , physical exam History of Present Illness The patient is a 72 year old female seen in cardiology follow-up. Patient notes feeling better. She denies any lightheadedness or weakness at present. She denies any palpitations. She denies syncope. Telemetry reveals stable sinus rhythm with occasional unifocal PVCs. Allergies Coded Allergies: Adhesives (Verified Allergy, Unknown, WELTS AND PULLS SKIN, 07/10/17) BEE STING (Verified Allergy, Unknown, SWELLING, 07/10/17) Iodinated Diagnostic Agents (Verified Allergy, Unknown, HIVES, 07/10/17) Social History Smoking Status: Never Smoker Hx Alcohol Use - Type And Amou: No Hx Substance Use - Type And Am: No Problem List Medical Problems: (1) Back pain Status: Acute (2) Cardiomyopathy Status: Acute (3) AMEZCUA (dyspnea on exertion) Status: Acute (4) GERD (gastroesophageal reflux disease) Status: Chronic (5) Headache Status: Acute (6) HTN (hypertension) Status: Chronic (7) Hypothyroidism Status: Chronic (8) Lightheadedness Status: Acute (9) Lower extremity weakness Status: Acute Physical Exam Vital Signs Last Vital Signs Documentation Date Time Temp Pulse Resp B/P (MAP) Pulse Ox O2 Delivery O2 Flow Rate FiO2 07/11/17 12:00 Room Air 07/11/17 11:13 36.6 74 18 125/82 (96) 93 Physical Exam Constitutional: Level of Distress: NAD Head: normocephalic ENMT: normal ENT inspection Neck: supple, trachea midline Lungs: Auscultation: no wheezing, no rales/crackles, no rhonchi Cardiovascular: Heart Auscultation: RRR, no murmurs, no rubs Extremities: no cyanosis, no edema Neurologic: Gait & Station: pertinent finding (no focal deficits) Assessment and Plan Assessment and Plan Impression: 72-year-old female 1. Neck/occipital pain, likely due to trapezius spasm as compared to cervical radiculopathy. Neurology input noted and appreciated 2. Non-ischemic heart myopathy, severe left ventricular systolic dysfunction noted on echocardiogram earlier this month in June,, left bundle branch block, chronic systolic heart failure [place] [employer] functional class II symptoms 3. Recent reaction to Definity ultrasound contrast with back pain, resolved Plan: The patient's adverse reaction to Definity was added to her [employer] chart. The patient is euvolemic at present. Lisinopril had been held and she has transitioned to Entresto by mouth twice a day. She has tolerated thus far having received 2 doses. I updated her outpatient medication list and sent and electronic order to her outpatient pharmacy, [facility]. She is to be discharged off of lisinopril, and on Entresto. Recommend home medication pack from inpatient pharmacy, perhaps 4 doses, as I believe it will take until early next week for prior auth to go through as our office is closed for the weekend. Patient is to keep her planned appointment for biventricular AICD as planned at [facility] on 07/22[facility]. Outpatient follow-up to establish with pain management is recommended after her AICD is placed. Carolynn Neri DO Laboratory Results Last 24 Hours Test 07/10/17 18:36 07/11/17 05:53 Total Creatine Kinase 165 U/L Creatine Kinase MB 2.1 ng/ml Creatine Kinase MB Ratio 1.3 Troponin I < 0.015 ng/ml Sodium Level 138 mmol/L Potassium Level 3.3 mmol/L Chloride Level 101 mmol/L Carbon Dioxide Level 29 mmol/L Anion Gap 8.0 mmol/L Blood Urea Nitrogen 13 mg/dl Creatinine 0.76 mg/dl Est Creatinine Clear Calc Drug Dose 59.8 ml/min Estimated GFR () 90.2 Estimated GFR (Non- 77.8 BUN/Creatinine Ratio 17.4 Random Glucose 101 mg/dl Calcium Level 8.7 mg/dl
--- NOTE | 2017-07-11 16:19 | Progress Note ---
Medicine Progress Note Date & Time of Visit: Jul 11, 2017 at 09:08. Subjective Pt was seen and examined Lying in bed with no distress Pt said that she feels fine She denies any chest pain palpitation, dizziness and SOB Objective Last 8 Hrs Date Time Temp Pulse Resp B/P (MAP) Pulse Ox O2 Delivery O2 Flow Rate FiO2 07/11/17 16:00 Room Air 07/11/17 12:00 Room Air 07/11/17 11:13 36.6 74 18 125/82 (96) 93 Room Air 07/11/17 08:20 Room Air Physical Exam: General- No acute distress Head- atraumatic Eyes- PERRL, EOMI ENT- oropharynx clear Neck- supple, no JVD Lungs- clear to auscultation Heart- regular rhythm Abdomen- normal bowel sounds, soft Extremities- no calf tenderness Neuro- alert, oriented x 3; PERRL, EOMI; no facial palsy Skin- warm & dry Laboratory Results: Last 24 Hours Test 07/10/17 18:36 07/11/17 05:53 Total Creatine Kinase 165 U/L Creatine Kinase MB 2.1 ng/ml Creatine Kinase MB Ratio 1.3 Troponin I < 0.015 ng/ml Sodium Level 138 mmol/L Potassium Level 3.3 mmol/L Chloride Level 101 mmol/L Carbon Dioxide Level 29 mmol/L Anion Gap 8.0 mmol/L Blood Urea Nitrogen 13 mg/dl Creatinine 0.76 mg/dl Est Creatinine Clear Calc Drug Dose 59.8 ml/min Estimated GFR () 90.2 Estimated GFR (Non- 77.8 BUN/Creatinine Ratio 17.4 Random Glucose 101 mg/dl Calcium Level 8.7 mg/dl Assessment & Plan Nonischemic Cardiomyopathy with Severe Systolic heart failure Present with chest pressure and dyspnea on presentation Recent echo noted on 06/29 with EF of 20-24% Troponin negativex2 cardiology on board Lisinopril d/c by cardio Started on Entresto BID and tolerated well Continue Coreg Schedule for biventricular pacer on July 22 Continue monitor in telemetry Case discussed with Cardiology Dr. Daron VERA from cardiology to discharge home Talked to pharmacy and agreed to give 2 days of home dose in case her insurance does not cover for the Entresto Might need prior auth for the Entresto Lightheadedness Resolved Anxiety Pt has been under a lot of stress lately On Klonopin prn Neck Tenderness Possible related to muscle spam MRI of the neck showed Mild broad-based disc herniations C5-C6 and C6-C7. At both levels there is moderate narrowing of the neuroforaminal bilaterally and minimal impact upon the anterior cervical cord. Neuro consulted, no further testing pain management recommendation after her AICD is placed. stable Chest Pressure Possible related to anxiety Troponin negative EKG showed no ST changes recent echo noted on 06/29 with EF of 20-24% On ASA and carvedilol Resolved HTN Continue HCTZ, Coreg D/C Lisinopril Continue on Entresto Hypothyroidism TSH wnl as outpatient continue current dose of Synthroid DVT ppx Lovenox FULL CODE Disposition Please call your primary care provider to schedule a follow up appointment Follow up with Needle Grader: cardio Current Inpatient Medications: Current Inpatient Medications Medications (Trade) Dose Ordered Sig/Zayra Route Start Time Stop Time Status Last Admin Dose Admin Enoxaparin Sodium (Lovenox Inj) 40 mg Q24H SC 07/10/17 09:00 08/09/17 08:59 07/11/17 08:03 40 MG Aspirin (Aspirin Chew) 81 mg QAM PO 07/10/17 09:00 08/09/17 08:59 07/11/17 08:07 81 MG Calcium Carbonate (Tums Chew Tab) 1,250 mg DAILY PO 07/10/17 09:00 08/09/17 08:59 07/11/17 08:03 1,250 MG Carvedilol (Coreg Tab) 6.25 mg BID PO 07/10/17 09:00 08/09/17 08:59 07/11/17 08:01 6.25 MG Hydrochlorothiazide (Hydrochlorothiazide Tab) 25 mg QAM PO 07/10/17 09:00 08/09/17 08:59 07/11/17 08:02 25 MG Levothyroxine Sodium (Synthroid Tab) 25 mcg DAILYBB PO 07/10/17 06:00 08/09/17 05:59 07/11/17 05:39 25 MCG Pantoprazole Sodium (Protonix Tab) 40 mg QAM PO 07/10/17 09:00 08/09/17 08:59 07/11/17 08:01 40 MG Pyridoxine HCl (Vitamin B-6 Tab) 100 mg QAM PO 07/10/17 09:00 08/09/17 08:59 07/11/17 08:02 100 MG Clonazepam (Klonopin Tab) 0.5 mg BID PRN PO 07/10/17 05:15 08/09/17 05:14 Miscellaneous (Iv Fluids Completed) 1 ea PRN PRN N/A 07/10/17 05:45 07/10/18 05:44 Sacubitril/ Valsartan (Entresto 24-26 Mg) 1 tab BID PO 07/10/17 21:00 08/09/17 20:59 07/11/17 08:02 1 TAB Gadobutrol (Gadavist) 7 mmol UD PRN IV 07/10/17 11:45 07/14/17 11:44
[2017-07-11] MEDS ORDERED: SACU1TAB PO (16:35)
--- NOTE | 2017-07-11 16:48 | Discharge Instructions ---
Discharge Instructions Date of Service Jul 11, 2017. Admission Reason for Admission: Chest Pain, Nonischemic Cardiomyopathy Discharge Discharge Diagnosis / Problem: Nonischemic Cardiomyopathy with Severe Systolic heart failure/Chest Pressur Discharge Goals Goal(s): Decrease discomfort, Improve function, Improve disease control Activity Recommendations Activity Limitations: resume your previous activity ( as tolerated ) . Instructions / Follow-Up Instructions / Follow-Up Follow up appointment with your primary care provider within 1 week (Please call to schedule appointment) Follow up with your cardiology (please call to schedule appointment) script for Entresto sent to pharmacy Discharge with home dose for 2 days supply for Entresto Your primary provider will put referral for Pain management Check BMP within 1 week to monitor potassium Current Hospital Diet Patient's current hospital diet: AHA Diet (Heart Healthy) Discharge Diet Recommended Diet: AHA Diet (Heart Healthy) Pending Studies Studies pending at discharge: no Medical Emergencies . Who to Call and When: Medical Emergencies: If at any time you feel your situation is an emergency, please call 911 immediately. . Non-Emergent Contact Non-Emergency issues call your: Primary Care Provider Call Non-Emergent contact if: you have any medication questions . . "Provider Documentation" section prepared by Bronson Waller. . VTE Core Measure Inpt VTE Proph given/why not?: Enoxaparin (Lovenox)SQ
[2017-07-11] MEDS ORDERED: SACUBITRIL-VALSARTAN 24-26 MG TAB PO SCH ×2 (17:00→21:00)
[2017-07-11 17:22] VITALS: BP 125/82; PULSE 74; TEMP 36.6; O2SAT 93
--- NOTE | 2017-07-14 00:36 | Discharge Summary ---
Discharge Summary Date of Service Jul 14, 2017. Discharge Summary Admission Date: Jul 10, 2017 at 05:06 Discharge Date: Jul 11, 2017 Discharge Disposition: Home Principal Diagnosis: Nonischemic Cardiomyopathy with Severe Systolic heart failure Chest Pressure Secondary Diagnoses/Problems: Lightheadedness Anxiety Neck Tenderness Chest Pressure Hypothyroidism HTN Procedures: [~ rep ct add3]] CERVICAL SPINE COMBO HISTORY: Pain. Neuropathy. cervical radiculopathy, hx of breast ca TECHNIQUE: Multiplanar multisequence MRI of the cervical spine was performed both before and after the use of intravenous contrast. COMPARISON STUDY: None. FINDINGS: Moderate degenerative disc changes throughout the entire cervical region. No bone marrow replacing process. Signal characteristics of the cervical cord are unremarkable. Slight heterogeneity on the inversion recovery sagittal images felt to be primarily artifactual. This is not seen on the transaxial images. No abnormal postcontrast sagittal enhancement. C2-C3: No significant central canal or neural foraminal narrowing. C3-C4: Slight broad-based disc bulge. Contact with but no deformity of the cervical cord. Neural foramina patent bilaterally. C4-C5: Minimal disc bulge. No significant impact with any no element. C5-C6: Mild broad-based disc herniation. Mild impact anterior cervical cord with narrowing of the neuroforamina bilaterally area C6-C7: Moderate broad-based right central disc herniation. Mild impact anterior aspect cervical cord. Moderate narrowing of the neuroforamina bilaterally. C7-T1: No significant central canal or neural foraminal narrowing. IMPRESSION: 1. Mild broad-based disc herniations C5-C6 and C6-C7. 2. At both levels there is moderate narrowing of the neuroforamina bilaterally and minimal impact upon the anterior cervical cord. 3. No abnormal postcontrast enhancement. 4. Generalized degenerative disc change throughout The above report was generated using voice recognition software. It may contain grammatical, syntax or spelling errors. Electronically signed by: Jimi Gonzalez M.D. 07/10/2017 11:42 AM Dictated Date/Time: 07/10/2017 11:38 AM [~ rep ct add3]] CT OF THE HEAD WITHOUT CONTRAST CLINICAL HISTORY: Frontal headache. Lightheaded. COMPARISON STUDY: No previous studies for comparison. CT DOSE: 537.48 mGy.cm TECHNIQUE: Helical axial images of the head were obtained without IV contrast. Automated exposure control was utilized for the study. A dose lowering technique was utilized adhering to the principles of ALARA. FINDINGS: No acute intracranial hemorrhage, midline shift or mass effect is present. Ventricular system is normal. Basilar cisterns are patent. There are no extra-axial collections. Figueroa-white differentiation is maintained. There are no findings to suggest acute dural sinus thrombosis or acute territorial infarct. There is no calvarial fracture. Visualized portions of the sinuses and mastoid air cells are clear. IMPRESSION: No acute intracranial findings. Electronically signed by: Golden Larsen M.D. 07/10/2017 7:05 AM Dictated Date/Time: 07/10/2017 7:04 AM [~ rep ct add3]] CHEST ONE VIEW PORTABLE CLINICAL HISTORY: sob dyspnea COMPARISON STUDY: No previous studies for comparison. FINDINGS: The bones soft tissues and hemidiaphragms are normal. The cardiomediastinal silhouette is normal. The lungs are clear. The pulmonary vasculature is normal. IMPRESSION: Negative chest. The above report was generated using voice recognition software. It may contain grammatical, syntax or spelling errors. Electronically signed by: Jimi Gonzalez M.D. 07/10/2017 6:47 AM Dictated Date/Time: 07/10/2017 6:47 AM Consultations: cardio Medication Reconciliation New Medications: Sacubitril-Valsartan (Entresto 24-26 mg) 1 Tab Tab 1 TAB PO BID for 30 Days, #60 TAB Continued Medications: Aspirin (Aspirin Chewable) 81 Mg Chew 81 MG PO QAM Calcium Carbonate (Tums) 500 Mg Chew 1250 MG PO DAILY Carvedilol (Coreg) 6.25 Mg Tab 6.25 MG PO BID, TAB Cholecalciferol (Vitamin D3) 2,000 Unit Tab 2000 UNITS PO DAILY for 90 Days, TAB 3 Refills Hydrochlorothiazide (Hydrochlorothiazide) 25 Mg Tab 1 TAB PO QAM Levothyroxine Sodium (Levothyroxine Sodium) 25 Mcg Tab 1 TAB PO QAM for 90 Days, #90 TAB 3 Refills Pantoprazole (Protonix) 40 Mg Tab 40 MG PO QAM, #30 TAB Pyridoxine (Vitamin B6) 100 Mg Tab 100 MG PO QAM, TAB Discontinued Medications: Lisinopril (Zestril) 2.5 Mg Tab 1 TAB PO QAM Admission Information HPI (per Admitting provider): This is a 72 year old female with a PMH of nonischemic cardiomyopathy with an EF of 20-24%, HTN, hypothyroidism, cervicalgia - presents with a few week history of lightheadedness, weakness, and muscle aches. On 06/29 - she had an echo, which showed her EF to be low at 20-24%. She was to see fisheries specialist on July 22 for a biventricular pacer placement. She states that since the echo w / contrast - she's been having unusual symptoms including dyspnea with exertion , chest pressure, numbness and weakness in b/l LE and LUE. She states that she was doing fine prior to this. As per , he states that he is stressed due to the news of her low EF as well as having to take care of him as he has a broken R wrist. She states that it's possible stress is playing a part, though she is not sure if that is the only thing. Currently, she is resting comfortably. Physical Exam (per Admitting): General Appearance: WD/WN, no apparent distress Head: normocephalic, atraumatic Eyes: normal inspection ENT: hearing grossly normal Neck: supple Respiratory/Chest: chest non-tender, lungs clear, normal breath sounds, no respiratory distress, no accessory muscle use Cardiovascular: regular rate, rhythm, no edema, no gallop, no JVD, no murmur , normal peripheral pulses Abdomen/GI: normal bowel sounds, non tender, soft Extremities/Musculoskelatal: normal inspection, no calf tenderness, normal capillary refill, no pedal edema, normal range of motion Neurologic/Psych: instructor extension work II-XII nml as tested, no motor/sensory deficits, alert , normal mood/affect, oriented x 3, + pertinent finding Skin: normal color Lymphatic: no adenopathy Hospital Course Nonischemic Cardiomyopathy with Severe Systolic heart failure Present with chest pressure and dyspnea on presentation Recent echo noted on 06/29 with EF of 20-24% Troponin negativex2 cardiology on board Lisinopril d/c by cardio Started on Entresto BID and tolerated well Continue Coreg Schedule for biventricular pacer on July 22 Continue monitor in telemetry Case discussed with Cardiology Dr. Daron VERA from cardiology to discharge home Talked to pharmacy and agreed to give 2 days of home dose in case her insurance does not cover for the Entresto Might need prior auth for the Entresto Lightheadedness Resolved Anxiety Pt has been under a lot of stress lately On Klonopin prn Neck Tenderness Possible related to muscle spam MRI of the neck showed Mild broad-based disc herniations C5-C6 and C6-C7. At both levels there is moderate narrowing of the neuroforaminal bilaterally and minimal impact upon the anterior cervical cord. Neuro consulted, no further testing pain management recommendation after her AICD is placed. stable Chest Pressure Possible related to anxiety Troponin negative EKG showed no ST changes recent echo noted on 06/29 with EF of 20-24% On ASA and carvedilol Resolved HTN Continue HCTZ, Coreg D/C Lisinopril Continue on Entresto Hypothyroidism TSH wnl as outpatient continue current dose of Synthroid DVT ppx Lovenox FULL CODE Disposition Please call your primary care provider to schedule a follow up appointment Follow up with Cardiology Total time spent on discharge = 35 minutes This includes examination of the patient, discharge planning, medication reconciliation, and communication with other providers. Discharge Instructions Discharge Instructions Date of Service Jul 11, 2017. Admission Reason for Admission: Chest Pain, Nonischemic Cardiomyopathy Discharge Discharge Diagnosis / Problem: Nonischemic Cardiomyopathy with Severe Systolic heart failure/Chest Pressur Discharge Goals Goal(s): Decrease discomfort, Improve function, Improve disease control Activity Recommendations Activity Limitations: resume your previous activity ( as tolerated ) . Instructions / Follow-Up Instructions / Follow-Up Follow up appointment with your primary care provider within 1 week (Please call to schedule appointment) Follow up with your cardiology (please call to schedule appointment) script for Entresto sent to pharmacy Discharge with home dose for 2 days supply for Entresto Your primary provider will put referral for Pain management Check BMP within 1 week to monitor potassium Current Hospital Diet Patient's current hospital diet: AHA Diet (Heart Healthy) Discharge Diet Recommended Diet: AHA Diet (Heart Healthy) Pending Studies Studies pending at discharge: no Medical Emergencies . Who to Call and When: Medical Emergencies: If at any time you feel your situation is an emergency, please call 911 immediately. . Non-Emergent Contact Non-Emergency issues call your: Primary Care Provider Call Non-Emergent contact if: you have any medication questions . . "Provider Documentation" section prepared by Bronson Waller. . VTE Core Measure Inpt VTE Proph given/why not?: Enoxaparin (Lovenox)SQ Additional Copies To Jimi Woodward M.D.
== END 2017-07-11 17:59 | disposition home or self-care (01) ==
LOC: C.EDB 00:07 → C.2T 05:06 → EEVIPCON 05:06 → ENRESERV 05:15
PROVIDERS: ADMIT Family Medicine; ATTEND Internal Medicine
DX: R53.1 Weakness (principal); R42 Dizziness and giddiness; I44.7 Left bundle-branch block, unspecified; I42.9 Cardiomyopathy, unspecified; I50.20 Unspecified systolic (congestive) heart failure; I11.0 Hypertensive heart disease with heart failure; M54.12 Radiculopathy, cervical region; Z85.3 Personal history of malignant neoplasm of breast; K21.9 Gastro-esophageal reflux disease without esophagitis; E03.9 Hypothyroidism, unspecified; Z90.10 Acquired absence of unspecified breast and nipple; Z79.82 Long term (current) use of aspirin; Z79.899 Other long term (current) drug therapy

== ENCOUNTER 2024-05-20 12:07 | Inpatient (IN) ==
[2024-05-20 13:52] LABS: Hematocrit (blood only) 20.9 % (37.0-47.0); Hemoglobin 6.5 g/dl (12.0-16.0); Mean Corpuscular Hemoglobin 31.3 pg (25.0-34.0); Mean Corpuscular Hgb Conc 31.1 g/dL (32.0-36.0); Mean Corpuscular Volume 100.5 fL (80.0-100.0); Platelet Count 169 K/uL (130-400); RDW Coefficient of Variation 15.8 % (11.5-14.5); RDW Standard Deviation 56.4 fL (36.4-46.3); Red Blood Count 2.08 M/uL (4.20-5.40)
[2024-05-20 14:01] LABS: Albumin Globulin Ratio 1.4 (0.9-2); Albumin Level 3.5 gm/dl (3.4-5.0); BUN Creatinine Ratio 35.1 (10-20); Bilirubin,Total 0.8 mg/dl (0.2-1.0); Calcium 8.3 mg/dl (8.6-10.3); Creatinine Clr Calc Pharmacy 41.5 ml/min; Globulin 2.5 gm/dl (2.5-4.0)
[2024-05-20 14:04] LABS: Troponin I High Sensitivity 18.1 pg/ml (0-14)
[2024-05-20] MEDS ORDERED: SODIUM CHLORIDE 0.9% 250 ML IV PRN (14:11)
[2024-05-20 14:21] LABS: Partial Thromboplastin Ratio 4.2
[2024-05-20 14:56] LABS: Prothrombin Time > 90.0 Seconds (9.0-12.0)
[2024-05-20 14:59] LABS: INR > 9.5 (0.9-1.1); Partial Thromboplastin Time 113 Seconds (21-31)
[2024-05-20] MEDS: PHYTONADIONE 10 MG in DEXTROSE 5% 50 ML IV ONE (15:16)
--- NOTE | 2024-05-20 15:24 | Emergency Department Note ---
Impression & Plan Symptomatic anemia, Elevated INR, Bruising ED Provider Note NAME: MAHAD DUKES AGE: 79 SEX: F : 1945 ARRIVES VIA: Walk-In INFORMANT: Patient ED PROVIDER(S): Timoteo Franks DO CHIEF COMPLAINT: Bruising HPI: Patient is an 79-year-old female who presents to the ER with a past medical history of heart failure with an ICD A-fib on Coumadin who presents to the ER for bruising of her upper and lower extremities. She also admits to black stools for the past 5 days. She had blood work done on the first of this month and showed a greater than 9 INR. This was never followed up on. She came in due to the bruising on the arms and the black stools. She denies any headache or change in vision. No chest pain or shortness of breath. She admits to pain in her tongue and she noticed some bruising of her tongue as well. No falls. Denies any trouble breathing or swallowing but admits to swelling of the tongue. ADDITIONAL HISTORY OBTAINED: Per HPI Chronic Medical/Social Conditions Affecting Care: Per HPI PAST MEDICAL HISTORY:See Below PAST SURGICAL HISTORY:See Below FAMILY HISTORY:See Below SOCIAL HISTORY:See Below HOME MEDICATIONS:See Below ALLERGIES:See Below VITALS:See Below PHYSICAL EXAMINATION: GENERAL: Sitting up in bed, alert, well appearing, well nourished, no distress, non-toxic EYE EXAM: normal conjunctiva. OROPHARYNX: no exudate, no erythema, lips, buccal mucosa, and bruising of the tongue normal and mucous membranes are moist NECK: supple, no nuchal rigidity, no adenopathy, non-tender LUNGS: Clear to auscultation. Normal chest wall mechanics HEART: no murmurs, S1 normal and S2 normal ABDOMEN: abdomen soft, non-tender, normo-active bowel sounds, no masses, no rebound or guarding. SKIN: Bruising over the upper and lower extremities. She has bruising on her tongue. UPPER EXTREMITIES: upper extremities are grossly normal. LOWER EXTREMITIES: No pitting edema. NEURO EXAM: Normal sensorium, cranial nerves II-XII grossly intact, normal speech, no gross weakness of arms, no gross weakness of legs. No drift. Finger to nose intact. Gross sensation intact. MEDICAL DECISION MAKING: Patient is an 79-year-old female who presents to the ER for bruising throughout the entire body. IV was established medicos obtained. Labs show no significant leukocytosis. Anemia at 6.5 down from baseline of 10-11. INR at greater than 9.5. BMP with LFTs bilirubin is unremarkable. Troponin mildly elevated. Patient was typed and crossed and given 2 units of PRBCs. She was given 10 units of vitamin K while in the ER. She has no trouble breathing or swallowing. She was updated at bedside. Discussed case with the hospitalist for further evaluation management treatment. Do favor she likely has a GI bleed as well as she has noticed dark stools with an elevated INR. Consults/Care Managements Discussions: Per MDM Triage Nursing notes reviewed. Limited review of prior medical records performed Vital Signs: reviewed and remarkable for no significant abnormalities Differential diagnosis: Infection, dehydration, metabolic abnormality, hypo/hyperglycemia, electrolyte disturbance, anemia, hypoxia, cardiac sources, intracerebral event, toxicologic, neurologic, as well as other pathologies. ER treatment provided: See below Diagnostics interpreted by me include EKG and cardiac monitoring as listed below: -Cardiac Monitoring: An order was placed for continuous cardiac monitoring. The monitor shows a rate of 70 with sinus rhythm. -ECG: none -Laboratory studies:Interpreted by me as stated above in MDM and shown below. Imaging studies: Xrays: As interpreted by me:none CTs show: none Procedures:none Critical Care: I have personally spent 35 minutes of critical care time in the direct management of this patient. This includes bedside care, interpretation of diagnostic studies, and testing, discussion with consultants, patient, and family members, and other required patient management activities. This 35 minutes is in excess of all separately billable procedures. Past Med/Surg History Problem List (Updated 05/20/24 @ 18:29 by Timoteo Franks DO) Bruising (Acute) Elevated INR (Acute) Symptomatic anemia (Acute) Supratherapeutic INR GI bleed Implantable cardioverter-defibrillator generator end of life Chronic systolic heart failure GERD (gastroesophageal reflux disease) Hypothyroidism AMEZCUA (dyspnea on exertion) (Acute) Chest pain (Acute) Atrial fibrillation with rapid ventricular response (Acute) Medical History (Updated 05/20/24 @ 18:29 by Timoteo Franks DO) Restless leg syndrome Left bundle branch block Nonischemic cardiomyopathy Distal radius fracture, right Nausea and vomiting after administration of anesthetic agent Osteoarthritis Cancer of right breast 2007--sx, chemo/radiation Atrial fibrillation 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 @ [facility] with Dr. Gonsalez Family History Other No family history of adverse response to anesthesia Social History Smoking Status: Never smoker Second Hand Exposure: Yes ( smoked); Do You Dip or Chew Tobacco: No; Hx Alcohol Use: No Hx Substance Use: No Preferred Language: Belarusian Communication Ability: Effective Disk Operator Required: No Beliefs That Will Affect Care: None Current Living Situation: Spouse Feels Safe at Home: Yes Assistive Devices: None Allergies Allergies Allergy/AdvReac Type Severity Reaction Status Date / Time adhesive Allergy Unknown WELTS AND Verified 05/20/24 15:03 PULLS SKIN bee venom protein (honey bee) Allergy Unknown SWELLING Verified 05/20/24 15:03 Iodinated Contrast Media Allergy Unknown HIVES Verified 05/20/24 15:03 perflutren AdvReac Severe Back pain Verified 01/31/23 17:42 propylene glycol AdvReac Severe Back pain Verified 01/31/23 17:42 Home Meds Home Medications Medication Instructions Recorded Confirmed albuterol sulfate 90 mcg/actuation 2 puff inhalation Q6H PRN 11/18/18 05/20/24 aerosol inhaler (Ventolin HFA) Shortness Of Breath amoxicillin 500 mg capsule 2,000 mg PO UD PRN prior to dental 11/18/18 05/20/24 procedures aspirin 81 mg tablet,delayed 81 mg PO QAM 11/18/18 05/20/24 release calcium carbonate (Calcium 500) 1,250 mg PO QAM 11/18/18 05/20/24 cholecalciferol (vitamin D3) 50 2,000 unit PO QAM 11/18/18 05/20/24 mcg (2,000 unit) tablet (Vitamin D3) furosemide 20 mg tablet 20 mg PO 5XWK 04/04/19 10/04/24 levothyroxine 25 mcg tablet 25 mcg PO QAM 11/18/18 05/20/24 pantoprazole 40 mg tablet,delayed 40 mg PO QAM 11/18/18 05/20/24 release pyridoxine (vitamin B6) 100 mg 100 mg PO QAM 11/18/18 05/20/24 tablet (Vitamin B-6) sacubitril 24 mg-valsartan 26 mg 1 tab PO BID 11/18/18 05/20/24 tablet (Entresto) rosuvastatin 10 mg tablet 10 mg PO DAILY 12/21/23 05/20/24 warfarin 5 mg tablet 2.5 mg PO 4XWK 12/21/23 05/20/24 amiodarone 200 mg tablet 100 mg PO DAILY 05/20/24 05/20/24 Previous Rx's Medication Instructions Recorded metoprolol succinate 25 mg 25 mg PO QAM #30 tabs 12/25/23 tablet,extended release 24 hr Results & Data (ED) Vital Signs Vital Signs - 24 hr 05/20/24 12:38 05/20/24 12:46 05/20/24 14:20 Temperature 36.1 C L Temperature Source Skin Pulse Rate 84 73 Pulse Rate [Apical] Pulse Rate from SpO2 Sensor Pulse Rhythm Regular Pulse Strength Normal Respiratory Rate 18 Respiratory Effort / Characteristics Non-Labored Spontaneous Respiratory Depth Normal Respiratory Pattern Regular Blood Pressure 137/64 Blood Pressure [Left Arm] Blood Pressure Mean 88 Blood Pressure Mean [Left Arm] Pulse Oximetry 96 93 Oxygen Delivery Method Room Air Room Air Oxygen Flow Rate Sepsis Recent Fever Within 48 Hours No Sepsis New/Unexplained Change in Mental Status N/A Sepsis Action Taken by Nursing No Action Required 05/20/24 14:27 05/20/24 14:57 05/20/24 15:04 Temperature Temperature Source Pulse Rate 78 76 Pulse Rate [Apical] 78 Pulse Rate from SpO2 Sensor 78 76 Pulse Rhythm Pulse Strength Respiratory Rate 27 H 19 21 Respiratory Effort / Characteristics Non-Labored Respiratory Depth Normal Respiratory Pattern Regular Blood Pressure 118/54 L Blood Pressure [Left Arm] 118/54 L Blood Pressure Mean 75 Blood Pressure Mean [Left Arm] 75 Pulse Oximetry 93 93 94 Oxygen Delivery Method Room Air Oxygen Flow Rate Sepsis Recent Fever Within 48 Hours Sepsis New/Unexplained Change in Mental Status Sepsis Action Taken by Nursing 05/20/24 15:06 05/20/24 15:18 05/20/24 15:33 Temperature Temperature Source Pulse Rate 79 80 78 Pulse Rate [Apical] Pulse Rate from SpO2 Sensor 79 77 75 Pulse Rhythm Pulse Strength Respiratory Rate 29 H 18 21 Respiratory Effort / Characteristics Respiratory Depth Respiratory Pattern Blood Pressure 118/54 L Blood Pressure [Left Arm] Blood Pressure Mean 75 Blood Pressure Mean [Left Arm] Pulse Oximetry 95 86 L 94 Oxygen Delivery Method Oxygen Flow Rate Sepsis Recent Fever Within 48 Hours Sepsis New/Unexplained Change in Mental Status Sepsis Action Taken by Nursing 05/20/24 15:48 05/20/24 16:00 05/20/24 16:12 Temperature 37.4 C Temperature Source Oral Pulse Rate 75 80 76 Pulse Rate [Apical] Pulse Rate from SpO2 Sensor 75 80 Pulse Rhythm Pulse Strength Respiratory Rate 27 H 25 H 23 Respiratory Effort / Characteristics Respiratory Depth Respiratory Pattern Blood Pressure 121/52 L 118/54 L Blood Pressure [Left Arm] Blood Pressure Mean 75 75 Blood Pressure Mean [Left Arm] Pulse Oximetry 97 94 93 Oxygen Delivery Method Oxygen Flow Rate Sepsis Recent Fever Within 48 Hours Sepsis New/Unexplained Change in Mental Status Sepsis Action Taken by Nursing 05/20/24 16:21 05/20/24 16:28 05/20/24 16:39 Temperature 37.3 C Temperature Source Oral Pulse Rate 76 75 75 Pulse Rate [Apical] Pulse Rate from SpO2 Sensor 76 75 Pulse Rhythm Pulse Strength Respiratory Rate 30 H 22 21 Respiratory Effort / Characteristics Respiratory Depth Respiratory Pattern Blood Pressure 119/59 L 118/54 L 123/70 Blood Pressure [Left Arm] Blood Pressure Mean 79 75 87 Blood Pressure Mean [Left Arm] Pulse Oximetry 96 95 92 Oxygen Delivery Method Oxygen Flow Rate Sepsis Recent Fever Within 48 Hours Sepsis New/Unexplained Change in Mental Status Sepsis Action Taken by Nursing 05/20/24 16:45 05/20/24 16:54 05/20/24 16:55 Temperature Temperature Source Pulse Rate 77 Pulse Rate [Apical] Pulse Rate from SpO2 Sensor 77 Pulse Rhythm Pulse Strength Respiratory Rate 22 Respiratory Effort / Characteristics Respiratory Depth Respiratory Pattern Blood Pressure 114/59 L Blood Pressure [Left Arm] Blood Pressure Mean 77 Blood Pressure Mean [Left Arm] Pulse Oximetry 94 88 L 96 Oxygen Delivery Method Room Air Nasal Cannula Oxygen Flow Rate 3 Sepsis Recent Fever Within 48 Hours Sepsis New/Unexplained Change in Mental Status Sepsis Action Taken by Nursing 05/20/24 17:03 05/20/24 17:33 05/20/24 18:20 Temperature Temperature Source Pulse Rate 73 78 71 Pulse Rate [Apical] Pulse Rate from SpO2 Sensor 74 78 Pulse Rhythm Pulse Strength Respiratory Rate 19 19 Respiratory Effort / Characteristics Respiratory Depth Respiratory Pattern Blood Pressure 117/61 121/69 Blood Pressure [Left Arm] Blood Pressure Mean 79 86 Blood Pressure Mean [Left Arm] Pulse Oximetry 97 100 Oxygen Delivery Method Oxygen Flow Rate Sepsis Recent Fever Within 48 Hours Sepsis New/Unexplained Change in Mental Status Sepsis Action Taken by Nursing Laboratory Data 05/20/24 13:20 05/20/24 13:20 Lab Results 05/20/24 05/20/24 05/20/24 Range/Units 13:15 13:20 14:53 WBC 8.50 (4.8-10.8) K/ul RBC 2.08 L (4.20-5.40) M/uL Hgb 6.5 L* (12.0-16.0) g/dl Hct 20.9 L* (37.0-47.0) % MCV 100.5 H (80.0-100.0) fL MCH 31.3 (25.0-34.0) pg MCHC 31.1 L (32.0-36.0) g/dL RDW Std Deviation 56.4 H (36.4-46.3) fL RDW Coeff of Ivanna 15.8 H (11.5-14.5) % Plt Count 169 (130-400) K/uL MPV 10.0 (9.4-12.4) fL PT > 90.0 H (9.0-12.0) Seconds INR > 9.5 H* (0.9-1.1) APTT 113 H* (21-31) Seconds PTT Ratio 4.2 Sodium 137 (136-145) mmol/L Potassium 4.0 (3.5-5.1) mmol/L Chloride 102 (98-107) mmol/L Carbon Dioxide 29 (21-32) mmol/L Anion Gap 6 (3-11) BUN 33 H (6-23) mg/dl Creatinine 0.94 (0.6-1.2) mg/dl Est Cr Clr Drug Dosing 41.5 ml/min eGFR 61.34 BUN/Creatinine Ratio 35.1 H (10-20) Glucose 122 H (70-99(Fasting)) mg/dl Calcium 8.3 L (8.6-10.3) mg/dl Total Bilirubin 0.8 (0.2-1.0) mg/dl AST 36 (13-39) U/L ALT 14 (7-52) U/L Alkaline Phosphatase 42 (34-104) U/L Troponin I High Sens 18.1 H (0-14) pg/ml Total Protein 6.0 (6.0-8.3) gm/dl Albumin 3.5 (3.4-5.0) gm/dl Globulin 2.5 (2.5-4.0) gm/dl Albumin/Globulin Ratio 1.4 (0.9-2) Blood Type O Positive Blood Type Recheck O Positive Antibody Screen NEGATIVE Crossmatch See Detail Administered Medications Discontinued Medications Phytonadione 10 mg/ Dextrose 51 mls @ 102 mls/hr IV ONE ONE Stop: 05/20/24 15:24 Last Infusion: 05/20/24 15:46 Dose: Infused Documented By: Admin: 05/20/24 15:16 Dose: 102 mls/hr Documented By: OUMOU Discharge Plan Visit Data Chief Complaint: Arm Pain Stated Complaint: LARGE BRUISES ON ARMS, WEAKNESS ED Provider: Timoteo Franks Discharge Problem: Symptomatic anemia, Elevated INR, Bruising Forms Stand Alone Forms: My [facility] Prescriptions Prescriptions: No Action amoxicillin 500 mg Capsule 2,000 mg PO UD PRN (Reason: prior to dental procedures) aspirin 81 mg Tablet,Delayed Release (Dr/Ec) 81 mg PO QAM levothyroxine 25 mcg Tablet 25 mcg PO QAM calcium carbonate [Calcium 500] 500 mg calcium (1,250 mg) Tablet 1,250 mg PO QAM pantoprazole 40 mg Tablet,Delayed Release (Dr/Ec) 40 mg PO QAM furosemide 20 mg Tablet 20 mg PO 5XWK Rx Instructions: Take 20mg by mouth on /T/W/T/F and ONLY take 20mg on S/S IF additional swelling/fluid retention pyridoxine (vitamin B6) [Vitamin B-6] 100 mg Tablet 100 mg PO QAM albuterol sulfate [Ventolin HFA] 90 mcg/actuation Hfa Aerosol Inhaler 2 puff INHALATION Q6H PRN (Reason: Shortness Of Breath) cholecalciferol (vitamin D3) [Vitamin D3] 2,000 unit Tablet 2,000 unit PO QAM Entresto 24-26 mg Tablet 1 tab PO BID amiodarone 200 mg tablet 100 mg PO DAILY Rx Instructions: 100 MG ONCE A DAY PER PT ON 05/20/24 rosuvastatin 10 mg tablet 10 mg PO DAILY warfarin 5 mg tablet 2.5 mg PO 4XWK Rx Instructions: // metoprolol succinate 25 mg Tablet Extended Release 24 Hr 25 mg PO QAM Qty: 30 0RF Referrals Referrals: Ruth Brandon MD [Primary Care Provider] -
--- NOTE | 2024-05-20 16:35 | History & Physical Report ---
Date of Service May 20, 2024 Assessment & Plan (1) Implantable cardioverter-defibrillator generator end of life: (2) Chronic systolic heart failure: (3) GERD (gastroesophageal reflux disease): (4) Hypothyroidism: (5) Atrial fibrillation: (6) ICD (implantable cardioverter-defibrillator) in place: (7) Nonischemic cardiomyopathy: (8) GI bleed: (9) Supratherapeutic INR: Plan Assessment and plan: Supratherapeutic INR Acute blood loss anemia Suspected UGI bleed INR likely supratherapeutic secondary to decreased amiodarone dose INR on 05/17 greater than 9, Coumadin was held x 3 days INR today still greater than 9, vitamin K 10 mg x 1 given in ED Hemoglobin dropped from 12.3 to 6.5, 2 units PRBC ordered in ED Serial H/H, check heme stool, patient reports 2 episodes of black stool Consult GI for further workup of possible upper GI bleed IV Protonix drip, check CT A/P to rule out active bleeding Will need to consider risk versus benefits of warfarin With high chads Vascor and history of atrial thrombus, favor continuing AC Will need to follow-up with cardiology outpatient and very close monitoring of INR levels Hx systolic CHF/AF/nonischemic cardiomyopathy/CAD/atrial thrombus: Continue amiodarone, hold aspirin/warfarin Continue statin/metoprolol, hold Entresto for now Hx GERD: Hold Protonix, continue Protonix drip A total of 60 minutes was spent on chart review/review medical history/discussion with consultants/facilitating plan of care Full code DVT prophylaxis: Warfarinon hold, SCDs, avoid AC with anemia History of Present Illness Chief Complaint: Scattered bruising, black stools Primary Care Provider: Ruth Brandon MD The patient is an 79-year-old female with a past medical history of nonischemic cardiomyopathy, chronic systolic CHF, HTN, mitral valve disorder, PM w/ defibrillator, atrial thrombus, CAD, AF, Yi's esophagus, GERD, vitamin D deficiency, breast cancer s/p right mastectomy who presents to the ED today with complaints of scattered bruising. Patient reports seeing her her study director recently, 05/12/2024, at this time her amiodarone was decreased from 200 mg daily to 100 mg daily. Her Coumadin dosing was not changed. There was close outpatient monitoring. Patient had an INR level drawn at the INR clinic on 05/17/2024 at this time, the result was over 9, the patient was directed to hold her Coumadin for the next 3 days. Patient reports at this time, there was no bleeding or concerns. Patient also had blood work on 05/12 that showed a normal hemoglobin. Today, the patient comes in with complaints of scattered bruising everywhere. She reports her tongue is swollen and black. She also reports 2 episodes of black stool 5 days ago. She has not had a bowel movement since then. Denies any nausea/vomiting/diarrhea. She also reported attempting to frost ve a bowel movement this a.m. and having some dizziness while she was bearing down and was concerned she may pass out. She denies any fever/chills. She denies any chest pain. On arrival to the ED, labs remarkable for hemoglobin 6.5, hematocrit 20.9, PT over 90 seconds, INR over 9.5, PTT 113, troponin 18.1 The patient was ordered 2 units of blood and a one-time dose of vitamin K 10 mg She will be admitted for further management of anemia and presumed GI bleed Allergies Allergy/AdvReac Type Severity Reaction Status Date / Time adhesive Allergy Unknown WELTS AND Verified 05/20/24 15:03 PULLS SKIN bee venom protein (honey bee) Allergy Unknown SWELLING Verified 05/20/24 15:03 Iodinated Contrast Media Allergy Unknown HIVES Verified 05/20/24 15:03 perflutren AdvReac Severe Back pain Verified 01/31/23 17:42 propylene glycol AdvReac Severe Back pain Verified 01/31/23 17:42 Home Medications Medication Instructions Recorded Confirmed Type albuterol sulfate 90 mcg/actuation 2 puff inhalation Q6H PRN 11/18/18 05/20/24 History aerosol inhaler (Ventolin HFA) Shortness Of Breath amoxicillin 500 mg capsule 2,000 mg PO UD PRN prior to dental 11/18/18 05/20/24 History procedures aspirin 81 mg tablet,delayed 81 mg PO QAM 11/18/18 05/20/24 History release calcium carbonate (Calcium 500) 1,250 mg PO QAM 11/18/18 05/20/24 History cholecalciferol (vitamin D3) 50 2,000 unit PO QAM 11/18/18 05/20/24 History mcg (2,000 unit) tablet (Vitamin D3) furosemide 20 mg tablet 20 mg PO 5XWK 11/18/18 05/20/24 History levothyroxine 25 mcg tablet 25 mcg PO QAM 11/18/18 05/20/24 History pantoprazole 40 mg tablet,delayed 40 mg PO QAM 11/18/18 05/20/24 History release pyridoxine (vitamin B6) 100 mg 100 mg PO QAM 11/18/18 05/20/24 History tablet (Vitamin B-6) sacubitril 24 mg-valsartan 26 mg 1 tab PO BID 11/18/18 05/20/24 History tablet (Entresto) rosuvastatin 10 mg tablet 10 mg PO DAILY 12/21/23 05/20/24 History warfarin 5 mg tablet 2.5 mg PO 4XWK 12/21/23 05/20/24 History metoprolol succinate 25 mg 25 mg PO QAM #30 tabs 12/25/23 05/20/24 Rx tablet,extended release 24 hr amiodarone 200 mg tablet 100 mg PO DAILY 05/20/24 05/20/24 History Past Med/Surg History Problem List (Updated 05/20/24 @ 18:29 by Timoteo Franks DO) Bruising (Acute) Elevated INR (Acute) Symptomatic anemia (Acute) Supratherapeutic INR GI bleed Implantable cardioverter-defibrillator generator end of life Chronic systolic heart failure GERD (gastroesophageal reflux disease) Hypothyroidism AMEZCUA (dyspnea on exertion) (Acute) Chest pain (Acute) Atrial fibrillation with rapid ventricular response (Acute) Medical History (Updated 05/20/24 @ 18:29 by Timoteo Franks DO) Restless leg syndrome Left bundle branch block Nonischemic cardiomyopathy Distal radius fracture, right Nausea and vomiting after administration of anesthetic agent Osteoarthritis Cancer of right breast 2007--sx, chemo/radiation Atrial fibrillation ICD (implantable cardioverter-defibrillator) in place 08/2017 @ [facility] Surgical History History of bilateral tubal ligation History of colonoscopy History of esophagogastroduodenoscopy (EGD) History of total mastectomy of right breast History of right breast biopsy malignant History of tooth extraction History of cardiac cath x3, no stents--last 2015? @ [facility] with Dr. Gonsalez Family History Other No family history of adverse response to anesthesia Social History Smoking Status: Never smoker Second Hand Exposure: Yes ( smoked); Do You Dip or Chew Tobacco: No; Hx Alcohol Use: No Hx Substance Use: No Preferred Language: Macedonian Communication Ability: Effective Carpenter General Required: No Beliefs That Will Affect Care: None Current Living Situation: Spouse Feels Safe at Home: Yes Safety Concerns: Feels Safe At This Time Assistive Devices: Glasses and Hearing Aid - Bilateral Review of Systems Review of Systems: All systems reviewed & are unremarkable except as noted in HPI & below Physical Exam Constitutional: WD/WN, vitals as above Eyes: PERRL, conjunctivae normal, anicteric sclerae (Tongue is black/swollen from bleeding) ENMT: external ear and nose normal, oropharynx normal Neck: trachea midline, no thyromegaly Respiratory: normal respiratory effort, lungs clear to auscultation + audible wheezes (Expiratory) Cardiovascular: RRR, no murmur, no edema Chest (Breasts): normal inspection/palpation of breasts Gastrointestinal (Abdomen): normal bowel sounds, soft, nontender, no hepatosplenomegaly Musculoskeletal: no cyanosis or clubbing, extremities motor strength 5/5 Skin: no rashes, warm and dry (Scattered bruising, mostly on left upper extremity and legs) Neurologic: PERRL, EOMI, accommodation nl, no face palsy, no dysarthria Psychiatric: A+Ox3, euthymic affect Lymphatic: no cervical or axillary lymphadenopathy Results & Data Results & Data Vital Signs (Past 12 Hours) Vital Signs Temp Pulse Pulse Resp BP BP Pulse Ox 05/20/24 16:12 37.4 C 76 23 118/54 L 93 05/20/24 15:04 78 21 118/54 L 94 05/20/24 14:20 73 05/20/24 12:46 93 05/20/24 12:38 36.1 C L 84 18 137/64 96 O2 Del Method 05/20/24 16:12 05/20/24 15:04 Room Air 05/20/24 14:20 05/20/24 12:46 Room Air 05/20/24 12:38 Room Air Diagnostic Findings Laboratory Results WBC 8.50 K/ul (4.8-10.8) 05/20/24 13:20 RBC 2.08 M/uL (4.20-5.40) L 05/20/24 13:20 Hgb 6.5 g/dl (12.0-16.0) L* 05/20/24 13:20 Hct 20.9 % (37.0-47.0) L* 05/20/24 13:20 MCV 100.5 fL (80.0-100.0) H 05/20/24 13:20 MCH 31.3 pg (25.0-34.0) 05/20/24 13:20 MCHC 31.1 g/dL (32.0-36.0) L 05/20/24 13:20 RDW Std Deviation 56.4 fL (36.4-46.3) H 05/20/24 13:20 RDW Coeff of Ivanna 15.8 % (11.5-14.5) H 05/20/24 13:20 Plt Count 169 K/uL (130-400) 05/20/24 13:20 MPV 10.0 fL (9.4-12.4) 05/20/24 13:20 PT > 90.0 Seconds (9.0-12.0) H 05/20/24 13:20 INR > 9.5 (0.9-1.1) H* 05/20/24 13:20 APTT 113 Seconds (21-31) H* 05/20/24 13:20 PTT Ratio 4.2 05/20/24 13:20 Sodium 137 mmol/L (136-145) 05/20/24 13:20 Potassium 4.0 mmol/L (3.5-5.1) 05/20/24 13:20 Chloride 102 mmol/L (98-107) 05/20/24 13:20 Carbon Dioxide 29 mmol/L (21-32) 05/20/24 13:20 Anion Gap 6 (3-11) 05/20/24 13:20 BUN 33 mg/dl (6-23) H 05/20/24 13:20 Creatinine 0.94 mg/dl (0.6-1.2) 05/20/24 13:20 Est Cr Clr Drug Dosing 41.5 ml/min 05/20/24 13:20 eGFR 61.34 05/20/24 13:20 BUN/Creatinine Ratio 35.1 (10-20) H 05/20/24 13:20 Glucose 122 mg/dl (70-99(Fasting)) H 05/20/24 13:20 Calcium 8.3 mg/dl (8.6-10.3) L 05/20/24 13:20 Total Bilirubin 0.8 mg/dl (0.2-1.0) 05/20/24 13:20 AST 36 U/L (13-39) 05/20/24 13:20 ALT 14 U/L (7-52) 05/20/24 13:20 Alkaline Phosphatase 42 U/L (34-104) 05/20/24 13:20 Troponin I High Sens 18.1 pg/ml (0-14) H 05/20/24 13:20 Total Protein 6.0 gm/dl (6.0-8.3) 05/20/24 13:20 Albumin 3.5 gm/dl (3.4-5.0) 05/20/24 13:20 Globulin 2.5 gm/dl (2.5-4.0) 05/20/24 13:20 Albumin/Globulin Ratio 1.4 (0.9-2) 05/20/24 13:20 Blood Type O Positive 05/20/24 13:15 Blood Type Recheck O Positive 05/20/24 14:53 Antibody Screen NEGATIVE 05/20/24 13:15 Crossmatch See Detail 05/20/24 13:15 Code Status & VTE Plan VTE Prophylaxis Plan VTE Prophylaxis will be ordered: No Reason for no VTE drug order: Contraindicated Supervising Physician Co-Signing Physician Notes Attending Addendum: Case reviewed with the advanced practitioner. I have personally performed a history and physical examination on the patient. I have reviewed the advanced practitioner's documentation on the date of service referenced in note, and I agree with, and take responsibility for the plan of care. please refer to her notes for full details patient seen and examined, records reviewed by myself as well on exam, patient seen resting in bed, comfortable states she feels ok overall denies dizziness, shortness of breath, chest pain reports melena at home, but has been constipated for 5 days, no abdominal pain no other symptoms VS noted and reviewed oriented x 3, not in distress, speaks in sentences with no effort nor accessory muscle use normal rate, regular rhythm, no murmurs clear breath sounds bilaterally non distended, soft, nontender (+) hematoma R forearm, L upper arm no bipedal edema, erythema, warmth no neuro deficits all labs, imaging noted and reviewed ASSESSMENT AND PLAN ACUTE BLOOD LOSS ANEMIA SUSPECTED UPPER GI BLEED IN THE SETTING OF SUPRATHERAPEUTIC INR (ON COUMADIN FOR ATRIAL FIBRILLATION) BILATERAL UPPER ARM HEMATOMA no history of GI bleed Hg 6.6 2 units PRBC ordered repeat Hg after 2nd unit Vit K 10mg IV given CT abdomen ordered: pending result Protonix Drip, NPO GI consulted HISTORY OF CHRONIC A FIB, ATRIAL THROMBUS CHADSVASC score elevated will need to resume anticoagulation,with lower dose of coumadin, once cleared by GI other diagnoses and plan of care as per advanced practitioner's notes Jose Antonio Morales MD (3) GERD (gastroesophageal reflux disease) Esophagitis presence: without esophagitis Qualified Code(s): K21.9 - Gastro- esophageal reflux disease without esophagitis (4) Hypothyroidism Hypothyroidism type: unspecified Qualified Code(s): E03.9 - Hypothyroidism, unspecified
[2024-05-20] MEDS: PANTOprazole 40 MG in SYRINGE 0 ML IV ONE (19:55)
--- OUTSIDE RECORDS SUMMARY | 2024-05-20 21:31 | External Medical Summary | Summary of Care ---
Author Name Unknown Organization [facility] [address] [facility] [facility] [address] Phone [phone] Care Team Providers Care Web Analytics Specialist Name Role Phone Ruth Brandon MD Primary Care Provider + Reason for Visit * Reason Comments Dosage Adjustment In Person (Anticoag Cl inic) Encounter Details Date Type Department Care Team (Latest Contact Info) Description 05/17/2024 2:10 PM EDT Anticoagulation Pharmacy, [facility] [address] [facility] [place] [address] [facility] [address] [facility] [place] [address] Anticoagulation management encounter*; Atrial thrombus; Thrombus due to any device, implant or graft, initial encounter Allergies Active Allergy Reactions Criticality Noted Date Comments Adhesive Tape Other (Please comment) 01/24/2008 Welts, blisters Bee Stings 02/14/2003 Bee Venom Hives 10/17/2019 Iodine Hives 10/17/2019 Ivp Dye 01/10/1998 hives documented as of this encounter (statuses as of 05/17/2024) Medications Medication Sig Dispensed Refills Start Date End Date Status VITAMIN B-6 100 MG PO TABS Take 1 Tablet by mouth in the morning. Active CALCIUM 1250 MG PO TABS Take 1 Tablet by mouth in the morning. Active ASPIRIN 81 MG PO TABS Take 1 Tablet by mouth in the morning. Active VITAMIN D 2000 UNITS PO CAPS Take 1,000 Units by mouth in the morning. Active albuterol (VENTOLIN HFA) 108 (90 BASE) MCG/ACT inhalerIndications :Acute bronchitis, antibiotics not indicated Inhale 2 Puffs by mouth every 6 hours as needed for Wheezing. 3 Inhaler 1 01/01/20 18 Active acetaminophen (TYLENOL) 500 MG Tablet Take 1 Tablet by mouth 2 times a day as needed (pain). Active Amoxicillin 500 MG Oral Capsule (Amoxil) Take 4 capsules prior to appointment 4 Capsule 6 02/27/20 23 Active Furosemide 20 MG Oral Tablet (Lasix)Indications :Hypothyroidism,Id iopathic cardiomyopathy (HCC),Presence of automatic cardioverter/defib rillator (AICD) TAKE ONE TABLET BY MOUTH EVERY DAY 5 DAYS PER WEEK, WITH AN EXTRA TABLET ON ALTERNATIVE DAYS IF NEEDED 90 Tablet 3 07/27/20 23 Active Triamcinolone Acetonide 0.1 % External Cream (Aristocort)Indica tions:Skin neoplasm,Pruritus Apply to areas of itchy rash on back, arms, and neck twice daily 450 g 5 07/27/20 23 Active Entresto 24-26 MG Oral Tablet (sacubitril-valsar silveira 24-26 mg per tab)Indications:Id iopathic cardiomyopathy (HCC),Chronic systolic congestive heart failure, NYHA class 2 (HCC) TAKE ONE TABLET BY MOUTH TWICE A DAY 200 Tablet 3 08/12/20 23 024 Active Rosuvastatin Calcium 10 MG Oral Tablet (Crestor)Indicatio ns: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) TAKE ONE TABLET BY MOUTH EVERY DAY IN THE MORNING 90 Tablet 3 09/08/19 24 025 Active Pantoprazole Sodium 40 MG Oral Tablet Delayed Release (Protonix) TAKE ONE TABLET BY MOUTH EVERY DAY 100 Tablet 2 11/24/19 24 025 Active Additional Information Patient taking differently: 40 mg Daily(AM), Reported on 04/20/2024 Metoprolol Succinate ER 25 MG Oral Tablet Extended Release 24 Hour (toPROL XL)Indications:Idi opathic cardiomyopathy (HCC),Chronic systolic congestive heart failure, NYHA class 2 (HCC),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) Take 1 Tablet by mouth in the morning. 100 Tablet 3 01/01/20 24 Active Levothyroxine Sodium 25 MCG Oral Tablet (Levoxyl)Indicatio ns:Other specified hypothyroidism TAKE ONE TABLET BY MOUTH DAILY AT LEAST 30 MINUTES PRIOR TO FIRST MEAL OF THE DAY OR OTHER MEDICATIONS 100 Tablet 2 01/04/20 24 Active Amiodarone HCl 200 MG Oral Tablet (Cordarone) Take one-half Tablet by mouth in the morning. 50 Tablet 3 05/12/20 24 Active Warfarin Sodium 5 MG Oral Tablet (Coumadin)Indicati ons:Atrial thrombus TAKE 1 TABLET BY MOUTH EVERY EVENING OR DIRECTED BY ANTICOAGULATION CLINIC 90 Tablet 3 10/20/19 24 024 Discontinued documented as of this encounter (statuses as of 05/17/2024) Active Problems Problem Noted Date Diagnosed Date Nonischemic cardiomyopathy 03/17/2024 Chronic atrial fibrillation 12/29/2023 Atherosclerosis of aorta 06/23/2023 Atherosclerosis of coronary artery of [place] heart without angina pectoris 06/23/2023 Atrial thrombus 11/07/2022 Thrombus due to any device, implant or graft, initial encounter 11/07/2022 Senile osteoporosis 05/09/2020 Fracture of vertebra due to osteoporosis with routine healing 05/09/2020 Hypertensive heart disease w ith chronic systolic congestive heart failure 10/15/2018 Presence of automatic cardioverter/defibrillator (AICD) 09/03/2017 Degenerative disc disease, cervical 07/15/2017 Chronic systolic congestive heart failure, NYHA class 2 07/11/2017 Idiopathic cardiomyopathy 06/19/2017 Vitamin D deficiency 10/04/2013 Essential hypertension with goal blood pressure less than 130/80 01/04/2013 History of breast cancer 01/04/2013 Cancer Staging:Clinical:Stage IIB(T2, N1, M0) - Signed by Efrain Mejia MD on 10/04/2013 Pathologic: Unsigned Gastroesophageal reflux disease without esophagi tis 01/04/2013 Yi esophagus 03/23/2012 Decreased hearing 01/31/2012 Overview: Consider eval Restless legs syndrome 07/16/2010 Hypothyroidism 07/02/2001 Mitral valve disorder documented as of this encounter (statuses as of 05/17/2024) Resolved Problems Problem Noted Date Diagnosed Date Resolved Date Prediabetes 09/29/2022 02/26/2023 Overview: Per Prediabetes protocol Viral URI with cough 04/02/2022 023 Body mass index (BMI) of 40. 0 to 44.9 in adult 02/24/2022 12/29/2023 Overview: Per Obesity protocol Malignant neoplasm of lower- outer quadrant of right female breast 11/27/2017 04/29/2019 Subclavian vein occlusion, left 08/14/2017 04/29/2019 Rhinitis, non-allergic 10/04/201306/19 Left foot pain 01/04/2013 06/19/2017 Venous insufficiency 01/04/2013 017 HX OF BREAST MALIGNANCY - ri ght, [id number], 200702/26/2011 10/04/2013 Polyneuropathy in other dise ases classified elsewhere 11/26/2010 06/19/2017 Labyrinthitis, unspecified 03/15/2010 1 08/19/2016 Vertigo 03/15/2010 04/29/2019 Multiple Telangiectases Upper Back 01/31/2009 06/19/2017 Malignant neoplasm of lower- outer quadrant of female breast 12/13/2007 01/04/2013 Overview: ICD-10 update of inactive term lichenification around r ankle 12/08/2007 06/19/2017 AK on nasal dorsum 12/08/2007 7 ADVANCE DIRECTIVE INFORMATION 05/13/2007 06/19/2017 Overview: No, Advance Directive brochure given to patient. Esophageal reflux 10/03/2006 01/04/2013 ADVANCE DIRECTIVE INFORMATION 04/08/2005 04/29/2019 Overview: No, Advance Directive brochure offered , patient declined. Menopause 08/03/2003 06/19/2017 HTN, goal below 140/90 08/03/200301/04 documented as of this encounter (statuses as of 05/17/2024) Immunizations Name Administration Dates Next Due COVID-19 mRNA, LNP-s, No Pre serve, 2-Dose Series (Pfizer) 07/19/2021,11/06/2020,10/11/2020 COVID-19, LNP-s, No Preserve , Sony-sucrose, Ages 12+ (Pfizer) 12/27/2021 COVID-19, MRNA-LNP, 23-24, P F, 30 MCG/0.3 mL, 12 YRS AND ABOVE, IM ([employer]) 07/13/2023 COVID-19, MRNA-LNP, 24-25, P R, 30MCG/0.3ML, IM, 12YRS AND ABOVE ([employer]) 04/28/2024 Covid-19, Mrna, Lnp-s, Pf, B ivalent, 30 Mcg, IM, 12 yrs and above (Pfizer) 07/17/2022 Pneumococcal Conjugate Vacc, 13 Valent (Prevnar) 04/04/2015 Pneumococcal Polysaccharide PPV23 (Pneumovax) 09/28/2012,10/28/2006 Season Influenza, Quad, PF, Adjuvanted, 65+ Yrs, IM (FLUAD) 04/27/2020 Seasonal Influenza Vac., MDV , IM, 0.5 mL (Fluzone) 04/18/2014,04/30/2013,06/05/2012,04/18,05/28/2010,05/24/2008,06/17/20 07,06/27/2006 Seasonal Influenza, High Dos e, Trivalent, PF, IM (Fluzone HD) 04/28/2024 Seasonal Influenza, PF, 6 M & above, IM , (FluLaval or Fluzone) 04/29/2019,05/22/2018,05/08/2017 05/22/2019 Seasonal Influenza, Quadriva lent Hd (Fluzone Hd) 05/14/2023,05/06/2022,04/25/2021 Seasonal Influenza, Quadriva lent, No Preserve, IM 05/31/2016,06/09/2015 06/09/2016 TD, Preservative Free 04/29/2016 TDAP, Age 7 and older, IM (Adacel) 03/02/2006 Varicella Zoster Vaccine (Adult) 04/02/2011 Zoster Vaccine Recombinant (Shingrix) 01/15/2019 ,04/23/2018 documented as of this encounter Social History Tobacco Use Types Packs/Day Years Used Date Smoking Tobacco: Never Smokeless Tobacco: Never Alcohol Use Standard Drinks/Week Comments Not Currently 0 (1 standard drink = 0.6 oz pur e alcohol) Rare glass of wine PHQ-2 Answer Date Recorded PHQ Adult Total Score 0 01/12/2024 Hunger Vital Sign Answer Date Recorded Within the past 12 months, y ou worried that your food would run out before you got the money to buy more. Never true 09/17/19 23 Within the past 12 months, t he food you bought just didn't last and you didn't have money to get more. Never true 09/17/2022 Utilities Answer Date Recorded Do you have trouble paying y our heating, water, or electric bill? (Adult - for ages 18 years and over) Not on file 02/02/2024 Is your family able to pay t he heat, water, or electric bill? (Household - for ages 0-17 years) Not on file 02/02/2024 Does your family have access to good internet? (Household - for ages 0-17 years) Not on file 02/02/2024 Social Connections Answer Date Recorded How often do you feel lonely or isolated from those around you? (Adult - for ages 18 years and over) Not on file 02/02/2024 Sex and Gender Information Value Date Recorded Sex Assigned at Female 02/28/2021 1:20 PM EDT Gender Identity Female 02/28/2021 1:20 PM EDT Sexual Orientation Straight 02/28/2021 1: 20 PM EDT Job Start Date Occupation Industry Not on file Not on file Not on file documented as of this encounter Progress Notes * Tete Guerrero [facility] - 05/17/2024 4:04 PM EDT Images from the original note were not included. Medication Therapy Disease Management - Anticoagulation Patient: Eduarda Colunga Ronda | : 1945 Subjective Contacts Contact Date/Time Type Contact Phone/Fax 05/17/2024 04:04 PM EDT Phone (Outgoing) Ronda Eduarda Cristine (Self) [phone] (H) Patient-Reported Symptoms: Patient Findings Positives: Change in medications (reduced amiodarone to 100 mg daily) Negatives: Signs/symptoms of thrombosis, Signs/symptoms of bleeding, Change in health, Change in alcohol use, Change in activity, Upcoming invasive procedure, Missed doses, Extra doses, Change in diet/appetite, Bruising Objective Current Warfarin Dose As of 05/17/2024 Warfarin maintenance plan: 0 mg every Mon, Wed, Fri; 2.5 mg (5 mg x 0.5) all other days INR Result As of 05/17/2024 INR goal: 2.0-3.0 INR used for dosing: >9.0 (05/17/2024) Assessment & Plan Warfarin Plan As of 05/17/2024 Full warfarin instructions: 05/17: Hold; 05/18: Hold; 05/19: Hold; Otherwise 0 mg every Mon, Wed, Fri;2.5 mg all other days Next INR check: 05/20/2024 Repeat PT/INR in 3 day(s) Weekly dose: not changed Additional Dosing Information: I spent a total of 10-19 minutes (exact time 20 mins) on the date of service in preparation, delivery, and documentation of the care provided to Eduarda Bond excluding any time spent in the performance of separately billed services or time spent by another provider/QHP. Tete Guerrero [facility] Clinical Pharmacist 05/17/2024, 4:07 PM documented in this encounter Plan of Treatment Upcoming Encounters Date Type Department Care Team (Late st Contact Info) Description 05/20/2024 5:30 PM EDT Anticoagulation Pharmacy, [facility] [place] [address] [place] [address] [facility] [place] [address] [address] [place] [address] 05/23/2024 2:30 PM EDT Hem/Onc Treatment Hematology/Oncology Treatment, [place] [address] [facility] [place] [phone] Christin, Chair 8 Hem Onc [address] [place] [address] 08/02/2024 10:20 AM EST Office Visit Podiatry [facility] [place] [address] Nicki Gomez, HELLEN [address] [place] [address] 10/04/2024 3:00 PM EST Office Visit General Internal Medicine [facility] [address] [place] [address] Ruth Brandon MD [address] [facility] [place] [address] 11/22/2024 2:00 PM EDT Office Visit Cardiology, [facility] [address] [facility] [place] [address] Rashmi Graham PA-C [address] [facility] [place] [address] 04/28/2025 1:40 PM EDT Office Visit Rheumatology [place] [address] [employer] [place], [place] [address] Sergio Coughlin MD [facility] [place] [address] Scheduled Procedures Name Priority Associated Diagnoses Date/Ti me COLONOSCOPY FLEXIBLE PROXIMA L DIAGNOSTIC Recall Special screening for malignant neoplasm of colon Health Maintenance Due Date Last Done Comments Yi's Esophagus Surveilance 04/05/2016 04/05/2013, 04/05/2013, 03/09/2012, Additional history exists *BISPHONATE OR OTHER ACCEPTABLE MEDICATION NEEDED FOR OSTEOPOROSIS (REFER TO SMARTSET #1146) 04/08/2024 DXA Scan 2024 2022, 04/18, 11/30/2014, Additional history exists Adult Wellness Visit 01/11/2025 01/12/2024, 09/17/19 23 Depression Screening 01/11/2025 01/12/2024, 01/12/20 24 Albumin/Creatinine Ratio 05/06/2025 05/06/2022, 11/0 01/2017 GFR 05/12/2025 05/12/2024, 11/2023, 09/22/2023, Additional history exists TSH 05/12/2025 05/12/2024, 01/2024, 05/06/2022, Additional history exists DTap/Tdap Vaccines (3 - Td or Tdap) 04/29/2026 04/29/2016, 03/02/2006 Pneumococcal Vaccine: 65+ Years Completed 04/04/2015, 09/28/2012, 10/28/2006 Zoster Vaccines Completed 01/15/2019, 02/2018, 04/02/2011 VITAMIN D LEVEL ONCE IN A LIFETIME-USE SMARTSET# 30221 Completed 04/20/2024, 02/10/2023, 03/18/2021, Additional history exists COVID-19 Vaccine Completed 04/28/2024, , 07/17/2022, Additional history exists Influenza Vaccine (FLU shot) Completed 07/2024, 05/14/2023, 05/06/2022, Additional history exists HPV (Gardasil) Vaccine Aged Out No lo nger eligible based on patient's age to complete this topic Hepatitis B Vaccine Aged Out No longe r eligible based on patient's age to complete this topic MENINGOCOCCAL (MENACTRA/MENVEO) Aged Out No longer eligible based on patient's age to complete this topic documented as of this encounter Medical Devices Implanted Type Area Java Web Developer Device Identifier Shelf Expiration Date Model / Serial / Lot Port 6fr Chronoflex [id number] - [id number] Implanted:Qty: 1 on 02/22/[address] [facility] Left: Chest CR BARD : [employer] [id number] / / [id number] documented as of this encounter Visit Diagnoses Diagnosis Anticoagulation management encounter- Primary Encounter for therapeutic drug monitoring Atrial thrombus Other ill-defined heart disease Thrombus due to any device, implant or graft, initial encounter documented in this encounter Advance Directives * Full Code (Latest Code Status on File) Date Activated Date Inactivated Comments 02/22/2008 6:21 PM 02/25/2008 5:28 PM * Full Code Date Activated Date Inactivated Comments 02/22/2008 11:42 AM 02/22/2008 6:21 PM * Full Code Date Activated Date Inactivated Comments 01/14/2008 1:06 PM 01/16/2008 7:05 PM Care Teams Web Analytics Specialist Relationship Specialty Start Date End Date Ruth Brandon MD [address] [place] [address] PCP - General Internal Medicine 04/25/21 documented as of this encounter"
--- OUTSIDE RECORDS SUMMARY | 2024-05-20 21:31 | External Medical Summary ---
Author Name Unknown Address Unknown Organization [id number][facility] [address] [place] [address] Laboratory Report Ordering Provider Test Date Status RIYA RODRIGUEZ 05/17/2024 14:35:07 Final Warfarin Therapy
INR: 2 .0-3.0 conventional anticoagulation
INR: 2.5- 3.5 high intensity anticoagulation Observation Date Value Abnormality Reference (Units ) Status PT 05/17/2024 14:35:07 >70.0 Above high normal 11 .6-15.2 (seconds) Final Results rechecked. INR 05/17/2024 14:35:07 >9.0 Above upper panic li mits 0.8-1.2 Final Results rechecked. Performing Location [facility] [address] [place] [address]
--- OUTSIDE RECORDS SUMMARY | 2024-05-20 21:31 | External Medical Summary | Summary of Care ---
Author Name Unknown Organization [facility] Address [address] [facility] [address] Phone [phone] Care Team Providers Care Surgical Territory Manager Name Role Phone Ruth [place] MD Primary Care Provider + Reason for Visit * Reason Onset Date Comments Returning Call 05/18/2024 Encounter Details Date Type Department Care Team (Late st Contact Info) Description 05/18/2024 Telephone Centralized Clinical Pharmacy Services, [facility] [address] [place] [address] [place] [address] [place], [facility] [address] [place] [address] Returning Call Allergies Active Allergy Reactions Criticality Noted Date Comments Adhesive Tape Other (Please comment) 01/24/2008 Welts, blisters Bee Stings 02/14/2003 Bee Venom Hives 10/17/2019 Iodine Hives 10/17/2019 Ivp Dye 01/10/1998 hives documented as of this encounter (statuses as of 05/18/2024) Medications Medication Sig Dispensed Refills Start Date [...] albuterol (VENTOLIN HFA) 108 (90 BASE) MCG/ACT inhalerIndications:A cute bronchitis, antibiotics not indicated Inhale 2 Puffs by mouth every 6 hours as needed for Wheezing. 3 Inhaler 1 12/31/2017 Active acetaminophen (TYLENOL) 500 MG Tablet Take 1 Tablet by mouth 2 times a day as needed (pain). Active Amoxicillin 500 MG Oral Capsule (Amoxil) Take 4 capsules prior to appointment 4 Capsule 6 02/26/2023 Active Furosemide 20 MG Oral Tablet (Lasix)Indications:H ypothyroidism,Idiopa thic cardiomyopathy (HCC),Presence of automatic cardioverter/defibri llator (AICD) TAKE ONE TABLET BY MOUTH EVERY DAY 5 DAYS PER WEEK, WITH AN EXTRA TABLET ON ALTERNATIVE DAYS IF NEEDED 90 Tablet 3 07/27/2023 Active Triamcinolone Acetonide 0.1 % External Cream (Aristocort)Indicati ons:Skin neoplasm,Pruritus Apply to areas of itchy rash on back, arms, and neck twice daily 450 g 5 07/27/2023 Active Entresto 24-26 MG Oral Tablet (sacubitril-valsarta n 24-26 mg per tab)Indications:Idio pathic cardiomyopathy (HCC),Chronic systolic congestive heart failure, NYHA class 2 (HCC) TAKE ONE TABLET BY MOUTH TWICE A DAY 200 Tablet 3 08/12/2023 4 Active Rosuvastatin Calcium 10 MG Oral Tablet (Crestor)Indications :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) TAKE ONE TABLET BY MOUTH EVERY DAY IN THE MORNING 90 Tablet 3 09/08/2023 5 Active Pantoprazole Sodium 40 MG Oral Tablet Delayed Release (Protonix) TAKE ONE TABLET BY MOUTH EVERY DAY 100 Tablet 2 11/24/2023 5 Active Additional Information Patient taking differently: 40 mg Daily(AM), Reported on 04/20/2024 Metoprolol Succinate ER 25 MG Oral Tablet Extended Release 24 Hour (toPROL XL)Indications:Idiop athic cardiomyopathy (HCC),Chronic systolic congestive heart failure, NYHA class 2 (HCC),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) Take 1 Tablet by mouth in the morning. 100 Tablet 3 01/01/2024 Active Levothyroxine Sodium 25 MCG Oral Tablet (Levoxyl)Indications :Other specified hypothyroidism TAKE ONE TABLET BY MOUTH DAILY AT LEAST 30 MINUTES PRIOR TO FIRST MEAL OF THE DAY OR OTHER MEDICATIONS 100 Tablet 2 01/04/2024 Active Amiodarone HCl 200 MG Oral Tablet (Cordarone) Take one-half Tablet by mouth in the morning. 50 Tablet 3 05/12/2024 Active documented as of this encounter (statuses as of 05/18/2024) Active Problems Problem Noted Date Diagnosed Date Nonischemic cardiomyopathy 03/17/2024 Chronic atrial fibrillation 12/29/2023 Atherosclerosis of aorta 06/23/2023 Atherosclerosis of coronary artery of [place] heart without angina pectoris 06/23/2023 Atrial thrombus [...] as of this encounter (statuses as of 05/18/2024) Resolved Problems Problem Noted Date Diagnosed Date [...] HX OF BREAST MALIGNANCY - ri ght, [id number], 200702/26/2011 10/04/2013 Polyneuropathy in other dise ases [...] as of this encounter (statuses as of 05/18/2024) Immunizations Name Administration Dates Next Due COVID-19 mRNA, LNP-s, No Pre serve, 2-Dose Series ([email or web address])) 07/19/2021,11/06/2020,10/11/2020 COVID-19, LNP-s, No Preserve , Sony-sucrose, Ages 12+ ([employer] ([email or web address])) 12/27/2021 COVID-19, MRNA-LNP, 23-24, P F, 30 MCG/0.3 mL, 12 YRS AND ABOVE, IM (P[employer]ZER-ComirnatVizerra) 07/13/2023 COVID-19, MRNA-LNP, 24-25, P R, 30MCG/0.3ML, IM, 12YRS AND ABOVE ([employer] ([email or web address])-ComirnatVizerra) 04/28/2024 Covid-19, Mrna, Lnp-s, Pf, B ivalent, [...] on file documented as of this encounter Miscellaneous Notes * Telephone Encounter - Tete Guerrero RPh - 05/18/2024 10:00 AM EDT Patient Phone Numbers Spoke to patient via phone. Reviewed foods that have vitamin K. Requesting lab work on Sunday 05/20,patient is aware. Follow up with lab work on 05/20. Tete Guerrero, Pharm D, BCACP Clinical Pharmacist 05/18/2024, 10:03 AM * Telephone Encounter - Jamee Mays television production clerk - 05/18/2024 9:57 AM EDT Caller's name: [facility] call back number(OFFICE NUMBER FOR ): [phone] Reason for call: Patient returning call from [facility]. Would like a call back jez to go over some questions and concerns she has. Jamee Mays Assistant Purchasing Manager Centralized Clinical Pharmacy Services [address] [place], [place] [address]J[place] [address] [place] [address] [phone] 05/18/2024,9:58 AM documented in this encounter Plan of Treatment Upcoming Encounters Date Type Department Care Team (Late st Contact Info) Description 05/20/2024 5:30 PM EDT Anticoagulation Pharmacy, [facility] [address] [address] [facility] [address] [place] [address] 05/23/2024 2:30 PM EDT Hem/Onc Treatment Hematology/Oncology Treatment, [place] 200 [facility] [place] [phone] Christin, Chair 8 Hem Onc [facility] 200 [facility] [place] [address] 08/02/2024 10:20 AM EST Office Visit Podiatry [facility] 132 [place] [address] Nicki Gomez DPM 132 [place] [address] 10/04/2024 3:00 PM EST Office Visit General Internal Medicine [facility] 200 [facility] [place] [address] Ruth [place] MD 200 [facility] [place] [address] 11/22/2024 2:00 PM EDT Office Visit Cardiology, [facility] 132 [place] [address] Rashmi Graham PA-C [address] [place] [address] 04/28/2025 1:40 PM EDT Office Visit Rheumatology [place] [address] [place] [address] Sergio Coughlin MD [address] [place] [address] Scheduled Procedures Name Priority Associated Diagnoses Date/Ti [...] 01/12/2024, 01/12/20 24 Albumin/Creatinine Ratio 05/06/2025 05/06/2022, 0 01/2017 GFR 05/12/2025 05/12/2024, 090 11/2023, 09/22/2023, Additional history exists TSH 05/12/2025 05/12/2024, 0 01/2024, 05/06/2022, Additional history exists DTap/Tdap Vaccines (3 - Td or Tdap) 04/29/2026 04/29/2016, 03/02/2006 Pneumococcal Vaccine: 65+ Years Completed 04/04/2015, 09/28/2012, 10/28/2006 Zoster Vaccines Completed 01/15/2019, 0 02/2018, 04/02/2011 VITAMIN D LEVEL ONCE IN A LIFETIME-USE SMARTSET# [id number] Completed 04/20/2024, 02/10/2023, 03/18/2021, Additional history exists [...] this encounter Medical Devices Implanted Type Area Colored Leather Setter Device Identifier Shelf Expiration Date Model / Serial / Lot Port 6fr Chronoflex [id number] - [id number] [place]ed:[place] 1 [place] [facility] [place] Chest CR BARD : [employer] SYSTEM[employer] [id number] / / [id number] documented as of this encounter Advance Directives * Full Code (Latest Code Status on File) Date Activated Date Inactivated Comments 02/22/2008 6:21 PM 02/25/2008 5:28 PM * Full Code Date Activated Date Inactivated Comments 02/22/2008 11:42 AM 02/22/2008 6:21 PM * Full Code Date Activated Date Inactivated Comments 01/14/2008 1:06 PM 01/16/2008 7:05 PM Care Teams Surgical Territory Manager Relationship Specialty Start Date End Date Ruth [place] MD [address] [place] [address] PCP - General Internal Medicine 04/25/21 documented as of this encounter
--- OUTSIDE RECORDS SUMMARY | 2024-05-20 21:31 | External Medical Summary | Summary of Care ---
Author Name Unknown Organization [facility] Address [address] [facility] [place] [address] Phone [phone] Care Team Providers Care General Ledger Bookkeeper Name Role Phone Ruth [place] MD Primary Care Provider + Reason for Visit * Reason Onset Date Comments Test Results 05/13/2024 Encounter Details Date Type Department Care Team (Late st Contact Info) Description 05/13/2024 Telephone Cardiology, [facility] [address] [place] [phone] Ramsey Gonsalez MD 132 [facility] [place] [phone] Test Results Allergies Active Allergy Reactions Criticality Noted Date Comments Adhesive Tape Other (Please comment) 01/24/2008 Welts, blisters Bee Stings 02/14/2003 Bee Venom Hives 10/17/2019 Iodine Hives 10/17/2019 Ivp Dye 01/10/1998 hives documented as of this encounter (statuses as of 05/13/2024) Medications Medication Sig Dispensed Refills Start Date [...] albuterol (VENTOLIN HFA) 108 (90 BASE) MCG/ACT inhalerIndications: Acute bronchitis, antibiotics not indicated Inhale 2 Puffs by mouth every 6 hours as needed for Wheezing. 3 Inhaler 1 12/31/2017 Active acetaminophen (TYLENOL) 500 MG Tablet Take 1 Tablet by mouth 2 times a day as needed (pain). Active Amoxicillin 500 MG Oral Capsule (Amoxil) Take 4 capsules prior to appointment 4 Capsule 6 02/26/2023 Active Furosemide 20 MG Oral Tablet (Lasix)Indications: Hypothyroidism,Idio pathic cardiomyopathy (HCC),Presence of automatic cardioverter/defibr illator (AICD) TAKE ONE TABLET BY MOUTH EVERY DAY 5 DAYS PER WEEK, WITH AN EXTRA TABLET ON ALTERNATIVE DAYS IF NEEDED 90 Tablet 3 07/27/2023 Active Triamcinolone Acetonide 0.1 % External Cream (Aristocort)Indicat ions:Skin neoplasm,Pruritus Apply to areas of itchy rash on back, arms, and neck twice daily 450 g 5 07/27/2023 Active Entresto 24-26 MG Oral Tablet (sacubitril-valsart an 24-26 mg per tab)Indications:Idi opathic cardiomyopathy (HCC),Chronic systolic congestive heart failure, NYHA class 2 (HCC) TAKE ONE TABLET BY MOUTH TWICE A DAY 200 Tablet 3 08/12/2023 08/11/20 24 Active Rosuvastatin Calcium 10 MG Oral Tablet (Crestor)Indication s: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) TAKE ONE TABLET BY MOUTH EVERY DAY IN THE MORNING 90 Tablet 3 09/08/2023 09/07/19 25 Active Warfarin Sodium 5 MG Oral Tablet (Coumadin)Indicatio ns:Atrial thrombus TAKE 1 TABLET BY MOUTH EVERY EVENING OR DIRECTED BY ANTICOAGULATION CLINIC 90 Tablet 3 10/20/2023 10/20/19 25 Active Additional Information Patient taking differently: 2.5 mg Oral, 4 days a week , wed, thur, sat, sun, Reported on 04/20/2024 Pantoprazole Sodium 40 MG Oral Tablet Delayed Release (Protonix) TAKE ONE TABLET BY MOUTH EVERY DAY 100 Tablet 2 11/24/2023 04/09/20 25 Active Additional Information Patient taking differently: 40 mg Daily(AM), Reported on 04/20/2024 Metoprolol Succinate ER 25 MG Oral Tablet Extended Release 24 Hour (toPROL XL)Indications:Idio pathic cardiomyopathy (HCC),Chronic systolic congestive heart failure, NYHA class 2 (HCC),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) Take 1 Tablet by mouth in the morning. 100 Tablet 3 01/01/2024 Active Levothyroxine Sodium 25 MCG Oral Tablet (Levoxyl)Indication s:Other specified hypothyroidism TAKE ONE TABLET BY MOUTH DAILY AT LEAST 30 MINUTES PRIOR TO FIRST MEAL OF THE DAY OR OTHER MEDICATIONS 100 Tablet 2 01/04/2024 Active Amiodarone HCl 200 MG Oral Tablet (Cordarone) Take one-half Tablet by mouth in the morning. 50 Tablet 3 05/12/2024 Active documented as of this encounter (statuses as of 05/13/2024) Active Problems Problem Noted Date Diagnosed Date Nonischemic cardiomyopathy 03/17/2024 Chronic atrial fibrillation 12/29/2023 Atherosclerosis of aorta 06/23/2023 Atherosclerosis of coronary artery of [place] heart without angina pectoris 06/23/2023 Atrial thrombus [...] Staging:Clinical:Stage IIB(T2, N1, M0) - Signed by Erfain Mejia MD on 10/04/2013 Pathologic: Unsigned Gastroesophageal reflux disease without esophagi tis 01/04/2013 Yi esophagus 03/23/2012 Decreased hearing 01/31/2012 Overview: Consider eval Restless legs syndrome 07/16/2010 Hypothyroidism 07/02/2001 Mitral valve disorder documented as of this encounter (statuses as of 05/13/2024) Resolved Problems Problem Noted Date Diagnosed Date [...] HX OF BREAST MALIGNANCY - ri ght, [id number], 200702/26/2011 10/04/2013 Polyneuropathy in other dise ases [...] as of this encounter (statuses as of 05/13/2024) Immunizations Name Administration Dates Next Due COVID-19 mRNA, LNP-s, No Pre serve, 2-Dose Series ([employer]) 07/19/2021,11/06/2020,10/11/2020 COVID-19, LNP-s, No Preserve , Sony-sucrose, Ages 12+ (Pfizer) 12/27/2021 COVID-19, MRNA-LNP, 23-24, P F, 30 MCG/0.3 mL, 12 YRS AND ABOVE, IM ([facility]) 07/13/2023 COVID-19, MRNA-LNP, 24-25, P R, 30MCG/0.3ML, IM, 12YRS AND ABOVE ([employer]) 04/28/2024 Covid-19, Mrna, Lnp-s, Pf, B ivalent, 30 Mcg, IM, 12 yrs and above ([employer]) 07/17/2022 Pneumococcal Conjugate Vacc, 13 Valent (Prevnar) 04/04/2015 Pneumococcal Polysaccharide PPV23 (Pneumovax) 09/28/2012,10/28/2006 Season Influenza, Quad, PF, Adjuvanted, 65+ Yrs, IM (FLUAD) 04/27/2020 Seasonal Influenza, High Dos e, Trivalent, PF, IM (Fluzone HD) 04/28/2024 Seasonal Influenza, PF, 6 M & above, IM , (FluLaval or Fluzone) 04/29/2019,05/22/2018,05/08/2017 05/22/2019 Seasonal Influenza, Quadriva lent Hd (Fluzone Hd) 05/14/2023,05/06/2022,04/25/2021 Seasonal Influenza, Quadriva lent, No Preserve, IM 05/31/2016,06/09/2015 06/09/2016 Seasonal Influenza, Trivalen t, (IIV3), with Preserv, (Fluzone) 04/18/2014,04/30/2013,06/05/2012,04/18,05/28/2010,05/24/2008,06/17/20 07,06/27/2006 TD, Preservative Free 04/29/2016 TDAP, Age 7 [...] encounter Miscellaneous Notes * Telephone Encounter - Jose Bradford LPN - 05/13/2024 5:00 PM EDT Sent patient a [employer] message to make aware. TSH ordered. ----- Message from Ramsey Gonsalez MD sent at 05/13/2024 4:59 PM EDT ----- Lab work mostly okay. TSH mildly elevated but with normal T4 Repeat 2 months thyroid function documented in this encounter Plan of Treatment Upcoming Encounters Date Type Department Care Team (Late st Contact Info) Description 05/17/2024 2:10 PM EDT [facility] 132 [place] [address] [facility] [address] [place] [address] 05/23/2024 2:30 PM EDT Hem/Onc Treatment Hematology/Oncology Treatment, [place] [address] [place] [phone] Christin, Chair 8 Hem Onc [facility] 200 [place] [address] 08/02/2024 10:20 AM EST Office Visit Podiatry [facility] [address] [place] [address] Nicki Gomez DPM [address] [place] [address] 10/04/2024 3:00 PM EST Office Visit General Internal Medicine [facility] 200 [place] [address] Ruth [place] MD [address] [facility] [place] [address] 11/22/2024 2:00 PM EDT [facility] [address] [place] [address] Rashmi Graham PA-C [address] [place] [address] 04/28/2025 1:40 PM EDT Office Visit Rheumatology [address] [place] [address] Sergio Coughlin MD [address] [place] [address] [place] [address] Scheduled Orders Name Type Priority Associated Diagnoses Orde r Schedule TSH WITH FREE T4 IF INDICATED Lab Routine Hypothyroidism Expected: 07/13/2024 (Approximate), Expires: 05/13/2025 Scheduled Procedures Name Priority Associated Diagnoses Date/Ti [...] 01/12/2024, 01/12/20 24 Albumin/Creatinine Ratio 05/06/2025 05/06/2022, 110 01/2017 GFR 05/12/2025 05/12/2024, 090 11/2023, 09/22/2023, Additional history exists TSH 05/12/2025 05/12/2024, 0 01/2024, 05/06/2022, Additional history exists DTap/Tdap Vaccines (3 - Td or Tdap) 04/29/2026 04/29/2016, 03/02/2006 Pneumococcal Vaccine: 65+ Years Completed 04/04/2015, 09/28/2012, 10/28/2006 Zoster Vaccines Completed 01/15/2019, 090 02/2018, 04/02/2011 VITAMIN D LEVEL ONCE IN A LIFETIME-USE SMARTSET# [id number] Completed 04/20/2024, 02/10/2023, 03/18/2021, Additional history exists [...] this encounter Medical Devices Implanted Type Area Vapor Coater Device Identifier Shelf Expiration Date Model / Serial / Lot Port 6fr Chronoflex [id number] - [id number] Implanted:Q[place]: 1 [place] [facility] [place] Chest CR BARD : [employer] [id number] / / [id number] documented as of this encounter Visit Diagnoses Diagnosis Hypothyroidism- Primary Unspecified hypothyroidism documented in this encounter Advance Directives * Full Code (Latest Code Status on File) Date Activated Date Inactivated Comments 02/22/2008 6:21 PM 02/25/2008 5:28 PM * Full Code Date Activated Date Inactivated Comments 02/22/2008 11:42 AM 02/22/2008 6:21 PM * Full Code Date Activated Date Inactivated Comments 01/14/2008 1:06 PM 01/16/2008 7:05 PM Care Teams General Ledger Bookkeeper Relationship Specialty Start Date End Date Ruth [place] MD [address] [place] [address] PCP - General Internal Medicine 04/25/21 documented as of this encounter
--- OUTSIDE RECORDS SUMMARY | 2024-05-20 21:31 | External Medical Summary | Summary of Care ---
Author Name Unknown Organization [facility] Address [address] [place] [address] Phone [phone] Care Team Providers Care Radio Maintainer Name Role Phone Ruth [place] MD Primary Care Provider + Reason for Visit * Reason Onset Date Comments FYI 05/12/2024 Encounter Details Date Type Department Care Team (Late st Contact Info) Description 05/12/2024 Telephone Pharmacy, [address] [place] [address] Swati Umanzor, [facility] 56 [facility] [place] [address] FYI Allergies Active Allergy Reactions Criticality Noted Date Comments Adhesive Tape Other (Please comment) 01/24/2008 Welts, blisters Bee Stings 02/14/2003 Bee Venom Hives 10/17/2019 Iodine Hives 10/17/2019 Ivp Dye 01/10/1998 hives documented as of this encounter (statuses as of 05/12/2024) Medications Medication Sig Dispensed Refills Start Date [...] MOUTH EVERY DAY 100 Tablet 2 11/24/2023 11/24/19 25 Active Additional Information Patient taking differently: [...] as of this encounter (statuses as of 05/12/2024) Active Problems Problem Noted Date Diagnosed Date Nonischemic cardiomyopathy 03/17/2024 Chronic atrial fibrillation 12/29/2023 Atherosclerosis of aorta 06/23/2023 Atherosclerosis of coronary artery of [place] heart without angina pectoris 06/23/2023 Atrial thrombus [...] as of this encounter (statuses as of 05/12/2024) Resolved Problems Problem Noted Date Diagnosed Date [...] HX OF BREAST MALIGNANCY - ri ght, [id number], 200702/26/2011 10/04/2013 Polyneuropathy in other dise ases [...] as of this encounter (statuses as of 05/12/2024) Immunizations Name Administration Dates Next Due COVID-19 mRNA, LNP-s, No Pre serve, 2-Dose Series ([employer]) 07/19/2021,11/06/2020,10/11/2020 COVID-19, LNP-s, No Preserve , Sony-sucrose, Ages 12+ (Pfizer) 12/27/2021 COVID-19, MRNA-LNP, 23-24, P F, 30 MCG/0.3 mL, 12 YRS AND ABOVE, IM ([facility]) 07/13/2023 COVID-19, MRNA-LNP, 24-25, P R, 30MCG/0.3ML, IM, 12YRS AND ABOVE ([place]) 04/28/2024 Covid-19, Mrna, Lnp-s, Pf, B ivalent, 30 Mcg, IM, 12 yrs and above (Pfizer) 07/17/2022 Influenza, Whole Virus 09/15/1985 Pneumococcal Conjugate Vacc, 13 Valent (Prevnar) 04/04/2015 [...] Trivalen t, (IIV3), with Preserv, (Fluzone) 04/18/2014,04/30/2013,06/05/2012,04/18,05/28/2010,05/24/2008,06/17/20 07,06/27/2006,07/22/2005,09/03/2004,1 10/04/2002,07/21/2002 TD, Preservative Free 04/29/2016 TDAP, Age 7 [...] Telephone Encounter - Tete Guerrero RPh - 05/12/2024 10:56 AM EDT Noted, will follow up next week with INR. Tete Guerrero, Pharm D, BCACP Clinical Pharmacist 05/12/2024, 10:57 AM * Telephone Encounter - Swati Umanzor [facility] - 05/12/2024 10:44 AM EDT Amiodarone dose was decreased today. FYI. Swati Umanzor [facility] Clinical Pharmacist 05/12/2024, 10:44 AM documented in this encounter Plan of Treatment Upcoming Encounters Date Type Department Care Team (Late st Contact Info) Description 05/17/2024 2:10 PM EDT Anticoagulation Pharmacy, [facility] [address] [place] [address] [facility] [address] [place] [address] 05/23/2024 2:30 PM EDT Hem/Onc Treatment Hematology/Oncology Treatment, [place] [address] [facility] [phone] Christin, Chair 8 Hem Onc [address] [place] [address] 08/02/2024 10:20 AM EST Office Visit Podiatry [facility] [place] [address] [place] [address] Nicki Gomez DPM [address] [place] [address] 10/04/2024 3:00 PM EST Office Visit General Internal Medicine [facility] [address] [facility] [place] [address] Ruth [place] MD [address] [facility] [place] [address] 11/22/2024 2:00 PM EDT Office Visit Cardiology, [facility] 132 [facility] [place] [address] Rashmi Graham PA-C [address] [place] [address] 04/28/2025 1:40 PM EDT Office Visit Rheumatology [facility] [address] [place] [address] Sergio Coughlin MD [address] [place] [address] Scheduled Procedures Name Priority Associated Diagnoses Date/Ti me COLONOSCOPY FLEXIBLE PROXIMA L DIAGNOSTIC Recall Special screening for malignant neoplasm of colon Health Maintenance Due Date Last Done Comments Yi's Esophagus Surveilance 04/05/2016 04/05/2013, 04/05/2013, 03/09/2012, Additional history exists *BISPHONATE OR OTHER ACCEPTABLE MEDICATION NEEDED FOR OSTEOPOROSIS (REFER TO SMARTSET #1146) 04/08/2024 DXA Scan 2024 2022, 04/18, 11/30/2014, Additional history exists TSH 09/22/2024 09/22/2023, 04/18, 03/18/2021, Additional history exists Adult Wellness Visit 01/11/2025 01/12/2024, 09/17/19 23 Depression Screening 01/11/2025 01/12/2024, 01/12/20 24 GFR 04/20/2025 04/20/2024, 01/2024, 02/10/2023, Additional history exists Albumin/Creatinine Ratio 05/06/2025 05/06/2022, 01/2017 DTap/Tdap Vaccines (3 - Td or Tdap) 04/29/2026 04/29/2016, 03/02/2006 Pneumococcal Vaccine: 65+ Years Completed 04/04/2015, 09/28/2012, 10/28/2006 Zoster Vaccines Completed 01/15/2019, 02/2018, 04/02/2011 VITAMIN D LEVEL ONCE IN A LIFETIME-USE SMARTSET# [id number] Completed 04/20/2024, 02/10/2023, 03/18/2021, Additional history exists [...] this encounter Medical Devices Implanted Type Area Landscape Contractor Device Identifier Shelf Expiration Date Model / Serial / Lot Port 6fr Chronoflex [id number] - [id number] Implanted:Qty: 1 on 02/22/2008 at [place] [facility] [place] Left: Chest CR BARD : [employer] [id number] / / [id number] documented as of this encounter Advance Directives * Full Code (Latest Code Status on File) Date Activated Date Inactivated Comments 02/22/2008 6:21 PM 02/25/2008 5:28 PM * Full Code Date Activated Date Inactivated Comments 02/22/2008 11:42 AM 02/22/2008 6:21 PM * Full Code Date Activated Date Inactivated Comments 01/14/2008 1:06 PM 01/16/2008 7:05 PM Care Teams Radio Maintainer Relationship Specialty Start Date End Date Ruth [place] MD [address] [place] [place] [address] PCP - General Internal Medicine 04/25/21 documented as of this encounter
--- OUTSIDE RECORDS SUMMARY | 2024-05-20 21:31 | External Medical Summary | Summary of Care ---
Author Name Unknown Organization [facility] Address [address] [address] Phone [phone] Care Team Providers Care Supervisor Dog License Officer Name Role Phone Ruth Brandon MD Primary Care Provider + Reason for Visit * Reason Comments Outpatient Testing Encounter Details Date Type Department Care Team (Late st Contact Info) Description 05/17/2024 2:40 PM EDT Laboratory Laboratory, [facility] 132 [facility] [place] [phone] YanezCandice broussard [facility] [address] [facility] [place] [address] Atrial thrombus; Thrombus due to any device, implant or graft, initial encounter; Anticoagulation management encounter Allergies Active Allergy Reactions Criticality Noted [...] aorta 06/23/2023 Atherosclerosis of coronary artery of [place] heart without angina pectoris 06/23/2023 Atrial thrombus [...] HX OF BREAST MALIGNANCY - ri ght, [id number], 200702/26/2011 10/04/2013 Polyneuropathy in other dise ases [...] mRNA, LNP-s, No Pre serve, 2-Dose Series ([employer] 07/19/2021,11/06/2020,10/11/2020 COVID-19, LNP-s, No Preserve , Sony-sucrose, Ages 12+ ([employer] 12/27/2021 COVID-19, MRNA-LNP, 23-24, P F, 30 MCG/0.3 mL, 12 YRS AND ABOVE, IM ([facility]) 07/13/2023 COVID-19, MRNA-LNP, 24-25, P R, 30MCG/0.3ML, IM, 12YRS AND ABOVE ([employer]) 04/28/2024 Covid-19, Mrna, Lnp-s, Pf, B ivalent, [...] on file documented as of this encounter Plan of Treatment Upcoming Encounters Date Type Department Care Team (Late st Contact Info) Description 05/23/2024 2:30 PM EDT Hem/Onc Treatment Hematology/Oncology Treatment, [place] [address] [facility] [phone] Christin, Chair 8 Hem Onc [address] [address] [facility] [address] 08/02/2024 10:20 AM EST Office Visit [facility] [place] 132 [place] [address] Nicki Gomez, HELLEN 132 [place] [address] 10/04/2024 3:00 PM EST Office Visit General Internal Medicine [facility] [address] [place] [address] Ruth Brandon MD 200 [facility] [place] [address] 11/22/2024 2:00 PM EDT Office Visit Cardiology, [facility] [address] [place] [address] Rashmi Graham PA-C [address] [place] [address] 04/28/2025 1:40 PM EDT Office Visit Rheumatology [facility] [address] [place] [address] Sergio Coughlin MD [address] [place] [address] Pending Results Name Type Priority Associated Diagnoses Date /Time PT INR Lab Routine Atrial thrombus Thrombus due to any device, implant or graft, initial encounter Anticoagulation management encounter 05/17/2024 2:35 PM EDT Scheduled Procedures Name Priority Associated Diagnoses Date/Ti [...] D LEVEL ONCE IN A LIFETIME-USE SMARTSET# 04839 Completed 04/20/2024, 02/10/2023, 03/18/2021, Additional history exists [...] this encounter Medical Devices Implanted Type Area Canary Breeder Device Identifier Shelf Expiration Date Model / Serial / Lot Port 6fr Chronoflex [id number] - [id number] [place]ed:[place] 1 [place] [facility] [facility] [place] Chest CR BARD : [employer] [id number] / / [id number] documented as of this encounter Visit Diagnoses Diagnosis Atrial thrombus Other ill-defined heart disease Thrombus due to any device, implant or graft, initial encounter Anticoagulation management encounter Encounter for therapeutic drug monitoring documented in this encounter Advance Directives * Full Code (Latest Code Status on File) Date Activated Date Inactivated Comments 02/22/2008 6:21 PM 02/25/2008 5:28 PM * Full Code Date Activated Date Inactivated Comments 02/22/2008 11:42 AM 02/22/2008 6:21 PM * Full Code Date Activated Date Inactivated Comments 01/14/2008 1:06 PM 01/16/2008 7:05 PM Care Teams Supervisor Dog License Officer Relationship Specialty Start Date End Date Ruth Brandon MD [address] [place] [address] PCP - General Internal Medicine 04/25/21 documented as of this encounter
--- OUTSIDE RECORDS SUMMARY | 2024-05-20 21:32 | External Medical Summary ---
Author Name Unknown Address Unknown Organization K0G:LABORATORY [facility] [address] - [address] [place] [address] Laboratory Report Ordering Provider Test Date Status ALFREDO CARRERA 05/12/2024 10:23:22 Final Observation Date Value Abnormality Reference (Units ) Status WBC, Total 05/12/2024 10:23:22 3.99 Below low normal 4. 00-10.80 (K/uL) Final RBC 05/12/2024 10:23:22 4.18 3.85-5.15 (M/uL) Final Hemoglobin 05/12/2024 10:23:22 13.4 12.0-15.3 (g/dL) Final HCT 05/12/2024 10:23:22 42.4 36.0-45.2 (%) Final MCV 05/12/2024 10:23:22 101.4 81.5-97.5 (fL) Final MCH 05/12/2024 10:23:22 32.1 27.0-34.0 (pg) Final MCHC 05/12/2024 10:23:22 31.6 32.0-36.0 (g/dL) Final RDW 05/12/2024 10:23:22 15.8 11.5-15.5 (%) Final Platelets 05/12/2024 10:23:22 165 140-400 (K /uL) Final MPV 05/12/2024 10:23:22 8.7 6.6-11.1 ( fL) Final Performing Location LABORATORY [facility] [address] - [address] [place] [address]
--- OUTSIDE RECORDS SUMMARY | 2024-05-20 21:32 | External Medical Summary | Summary of Care ---
Author Name Unknown Organization [facility] Address [address] [facility] [address] Phone [phone] Care Team Providers Care Floor Sanding Machine Operator Name Role Phone Ruth Brandon MD Primary Care Provider + Reason for Visit * Reason Comments Outpatient Testing Encounter Details Date Type Department Care Team (Late st Contact Info) Description 05/12/2024 10:40 AM EDT Laboratory Laboratory, [facility] 132 [facility] [place] [address] YanezCandice broussard [facility] 132 [facility] [place] [id number] PAF (paroxysmal atrial fibrillation) ([facility]); Idiopathic cardiomyopathy ([facility]) Allergies Active Allergy Reactions Criticality Noted Date [...] aorta 06/23/2023 Atherosclerosis of coronary artery of [place] heart without angina pectoris 06/23/2023 Atrial thrombus [...] HX OF BREAST MALIGNANCY - ri ght, [id number], 200702/26/2011 10/04/2013 Polyneuropathy in other dise ases [...] mRNA, LNP-s, No Pre serve, 2-Dose Series ([employer]) 07/19/2021,11/06/2020,10/11/2020 COVID-19, LNP-s, No Preserve , Sony-sucrose, Ages 12+ ([employer]) 12/27/2021 COVID-19, MRNA-LNP, 23-24, P F, 30 MCG/0.3 mL, 12 YRS AND ABOVE, IM ([facility]) 07/13/2023 COVID-19, MRNA-LNP, 24-25, P R, 30MCG/0.3ML, IM, 12YRS AND ABOVE ([employer]) 04/28/2024 Covid-19, Mrna, Lnp-s, Pf, B ivalent, 30 Mcg, IM, 12 yrs and above ([employer]) 07/17/2022 Pneumococcal Conjugate Vacc, 13 Valent (Prevnar) [...] Description 05/17/2024 2:10 PM EDT Anticoagulation Pharmacy, [facility] [address] [place] [address] [facility] 132 [place] [address] 05/23/2024 2:30 PM EDT Hem/Onc Treatment Hematology/Oncology Treatment, [place] [address] [place] [phone] Christin, Chair 8 Hem Onc [facility] 200 [facility] [place] [address] 08/02/2024 10:20 AM EST Office Visit Podiatry [facility] [address] [facility] [place] [address] Nicki Gomez DPM [address] [facility] [place] [address] 10/04/2024 3:00 PM EST Office Visit General Internal Medicine [facility] 200 [facility] [place] [address] Ruth Brandon MD 200 [facility] [place] [address] 11/22/2024 2:00 PM EDT Office Visit Cardiology, [facility] 132 [facility] [place] [address] Rashmi Graham PA-C 132 [facility] [place] [address] 04/28/2025 1:40 PM EDT Office Visit Rheumatology [address] [place] [address] Sergio Coughlin MD [address] [place] [address] [place] [address] Pending Results Name Type Priority Associated Diagnoses Date /Time COMPREHENSIVE METABOLIC PANEL Lab Routine PAF (paroxysmal atrial fibrillation) (HCC) Idiopathic cardiomyopathy (HCC) 05/12/2024 10:23 AM EDT Scheduled Procedures Name Priority Associated Diagnoses [...] D LEVEL ONCE IN A LIFETIME-USE SMARTSET# 75058 Completed 04/20/2024, 02/10/2023, 03/18/2021, Additional history exists [...] this encounter Medical Devices Implanted Type Area Associate Sales Representative Device Identifier Shelf Expiration Date Model / Serial / Lot Port 6fr Chronoflex [id number] - [id number] Implanted:Qty: 1 on 02/22/2008 at [place] [facility] [place] Left: Chest CR BARD : [employer] [id number] / / [id number] documented as of this encounter Procedures Procedure Name Priority Date/Time Associated Diagnosis Comments DIFFERENTIAL, AUTOMATED Routine 05/12/2024 10:23 AM EDT PAF (paroxysmal atrial fibrillation) (HCC) Idiopathic cardiomyopathy (HCC) CBC Routine 05/12/2024 10:23 AM EDT PAF (paroxysmal atrial fibrillation) (HCC) Idiopathic cardiomyopathy (HCC) CBC Routine 05/12/2024 10:23 AM EDT PAF (paroxysmal atrial fibrillation) (HCC) Idiopathic cardiomyopathy (HCC) documented in this encounter Results * (ABNORMAL) DIFFERENTIAL, AUTOMATED (05/12/2024 10:23 AM EDT) WBC 3.99(L) 4.00 - 10.80 K/uL 05/12/2024 10:34 AM EDT LAB[facility]ORY [place] [facility] Neutrophils % 67.6 40.0 - 75.0 % 05/12/2024 10:34 AM EDT LAB[facility] [place] [facility]10 Lymphocytes % 20.3 18.0 - 42.0 % 05/12/2024 10:34 AM EDT LAB[facility] [place] 57[facility]10 Monocytes % 9.8 1.0 - 11.0 % 05/12/2024 10:34 AM EDT LAB[facility] [place] [facility]10 Eosinophils % 2.0 0.0 - 6.0 % 05/12/2024 10:34 AM EDT LAB[facility] [place] [facility]10 Basophils % 0.3 0.0 - 2.0 % 05/12/2024 10:34 AM EDT LAB[facility] [place] [facility]10 Absolute Neutrophils 2.70 1.80 - 7.70 K/uL 05/12/2024 10:34 AM EDT LAB[facility] [place] [facility] Absolute Lymphocytes 0.81(L) 1.00 - 4.80 K/ul 05/12/2024 10:34 AM EDT LAB[facility] [place] [facility]10 Absolute Monocytes 0.39 0.00 - 1.10 K/uL 05/12/2024 10:34 AM EDT LAB[facility] [place] [facility] Absolute Eosinophils 0.08 0.00 - 0.70 K/uL 05/12/2024 10:34 AM EDT [facility] Absolute Basophils 0.01 0.00 - 0.20 K/uL 05/12/2024 10:34 AM EDT [facility] Blood Venous blood specimen / Unknown Venipuncture / Unknown 05/12/2024 10:23 AM EDT 05/12/2024 10:23 AM EDT Ramsey Gonsalez MD LAB BLOOD ORDERABLES LABORATORY [facility] 57[address] [place] [address] * (ABNORMAL) CBC (05/12/2024 10:23 AM EDT) WBC 3.99(L) 4.00 - 10.80 K/uL 05/12/2024 10:34 AM EDT LABORATORY [place] 57-10 RBC 4.18 3.85 - 5.15 M/uL 05/12/2024 10:34 AM EDT [facility] HGB 13.4 12.0 - 15.3 g/dL 05/12/2024 10:34 AM EDT LABORATORY [place] 57-10 HCT 42.4 36.0 - 45.2 % 05/12/2024 10:34 AM EDT [facility] MCV 101.4 81.5 - 97.5 fL 05/12/2024 10:34 AM EDT LABORATORY [place] 57-10 MCH 32.1 27.0 - 34.0 pg 05/12/2024 10:34 AM EDT LABORATORY [place] 57-10 MCHC 31.6 32.0 - 36.0 g/dL 05/12/2024 10:34 AM EDT LABORATORY [place] 57-10 RDW 15.8 11.5 - 15.5 % 05/12/2024 10:34 AM EDT [facility] PLT 165 140 - 400 K/uL 05/12/2024 10:34 AM EDT LABORATORY [place] 57-10 MPV 8.7 6.6 - 11.1 fL 05/12/2024 10:34 AM EDT LABORATORY [place] 57-10 Blood Venous blood specimen / Unknown Venipuncture / Unknown 05/12/2024 10:23 AM EDT 05/12/2024 10:23 AM EDT Ramsey Gonsalez MD LAB BLOOD ORDERABLES [facility] [facility] [place] [address] documented in this encounter Visit Diagnoses Diagnosis PAF (paroxysmal atrial fibrillation) (HCC) Atrial fibrillation Idiopathic cardiomyopathy (HCC) Other primary cardiomyopathies documented in this encounter Advance Directives * Full Code (Latest Code Status on File) Date Activated Date Inactivated Comments 02/22/2008 6:21 PM 02/25/2008 5:28 PM * Full Code Date Activated Date Inactivated Comments 02/22/2008 11:42 AM 02/22/2008 6:21 PM * Full Code Date Activated Date Inactivated Comments 01/14/2008 1:06 PM 01/16/2008 7:05 PM Care Teams Floor Sanding Machine Operator Relationship Specialty Start Date End Date Ruth Brandon MD 200 [facility] [place], [place] [address] PCP - General Internal Medicine 04/25/21 documented as of this encounter
--- OUTSIDE RECORDS SUMMARY | 2024-05-20 21:32 | External Medical Summary | Summary of Care ---
Author Name Unknown Organization [facility] Address [address] [facility] [place] [address] Phone [phone] Care Team Providers Care Report Clerk Name Role Phone Ruth Brandon MD Primary Care Provider + Reason for Visit * Reason Onset Date Comments FYI 05/12/2024 Encounter Details Date Type Department Care Team (Late st Contact Info) Description 05/12/2024 Telephone Pharmacy, [address] [place] [address] Swati Umanzor, [facility] 56 [facility] [place] [address] FYI Allergies Active Allergy [...] aorta 06/23/2023 Atherosclerosis of coronary artery of [place] heart without angina pectoris 06/23/2023 Atrial thrombus [...] HX OF BREAST MALIGNANCY - ri ght, dE2O6A1, 200702/26/2011 10/04/2013 Polyneuropathy in other dise ases [...] mRNA, LNP-s, No Pre serve, 2-Dose Series ([employer]) 07/19/2021,11/06/2020,10/11/2020 COVID-19, LNP-s, No Preserve , Sony-sucrose, Ages 12+ ([employer]) 12/27/2021 COVID-19, MRNA-LNP, 23-24, P F, 30 MCG/0.3 mL, 12 YRS AND ABOVE, IM ([facility]) 07/13/2023 COVID-19, MRNA-LNP, 24-25, P R, 30MCG/0.3ML, IM, 12YRS AND ABOVE ([employer]) 04/28/2024 Covid-19, Mrna, Lnp-s, Pf, B ivalent, [...] AM * Telephone Encounter - Swati Umanzor [facility] - 05/12/2024 10:44 AM EDT Amiodarone dose was decreased today. FYI. Swati Umanzor [facility] Clinical Pharmacist 05/12/2024, 10:44 AM documented in this encounter Plan of Treatment Upcoming Encounters Date Type Department Care Team (Late st Contact Info) Description 05/17/2024 2:10 PM EDT Anticoagulation Pharmacy, [facility] [address] [place] [address] [facility] [address] [place] [address] 05/23/2024 2:30 PM EDT Hem/Onc Treatment Hematology/[facility]cology Treatment, [place] [facility] [phone] Christin, Chair 8 Hem Onc [address] [place] [address] 08/02/2024 10:20 AM EST Office Visit Podiatry [facility] [place] [address] [place] [address] Nicki Gomez DPM [address] [place] [address] 10/04/2024 3:00 PM EST Office Visit General Internal Medicine [facility] 200 [facility] [place] [address] Ruth Brandon MD 200 [facility] [place] [address] 11/22/2024 2:00 PM EDT Office Visit Cardiology, [facility] 132 [facility] [place] [address] Rashmi Graham PA-C [address] [place] [address] 04/28/2025 1:40 PM EDT Office Visit Rheumatology [facility] [address] [place] [address] Sergio Coughlin MD [address] [place] [address] Scheduled Procedures Name Priority Associated Diagnoses Date/Ti [...] D LEVEL ONCE IN A LIFETIME-USE SMARTSET# 14445 Completed 04/20/2024, 02/10/2023, 03/18/2021, Additional history exists [...] this encounter Medical Devices Implanted Type Area Preschool Assistant Device Identifier Shelf Expiration Date Model / Serial / Lot Port 6fr Chronoflex [id number] - [id number] Implanted:Qty: 1 on 02/22/2008 [place] [facility] [place] Chest CR BARD : [employer] [id number] / / [id number] documented as of this encounter Advance Directives * Full Code (Latest Code Status on File) Date Activated Date Inactivated Comments 02/22/2008 6:21 PM 02/25/2008 5:28 PM * Full Code Date Activated Date Inactivated Comments 02/22/2008 11:42 AM 02/22/2008 6:21 PM * Full Code Date Activated Date Inactivated Comments 01/14/2008 1:06 PM 01/16/2008 7:05 PM Care Teams Report Clerk Relationship Specialty Start Date End Date Ruth Brandon MD 200 [facility] [place] [address] PCP - General Internal Medicine 04/25/21 documented as of this encounter
--- OUTSIDE RECORDS SUMMARY | 2024-05-20 21:32 | External Medical Summary ---
Author Name Unknown Address Unknown Organization K01:LAB[facility]ATORY [facility] [facility] [place] [address] [place] [address] Laboratory Report Ordering Provider Test Date Status DEBIALFREDO LARIOS 05/12/2024 10:23:22 Final Observation Date Value Abnormality Reference (Units ) Status TSH 05/12/2024 10:23:22 5.40 Above high normal 0. 27-4.20 (uIU/mL) Final Performing Location LABORATORY C - [address] [place] [address]
--- OUTSIDE RECORDS SUMMARY | 2024-05-20 21:32 | External Medical Summary | Summary of Care ---
Author Name Unknown Organization [facility] Address [address] [address] Phone [phone] Care Team Providers Care Butcher Fish Name Role Phone Ruth Brandon MD Primary Care Provider + Reason for Visit * Reason Comments Dosage Adjustment In Person (Anticoag Cl inic) Encounter Details Date Type Department Care Team (Latest Contact Info) Description 05/10/2024 11:40 AM EDT Anticoagulation Pharmacy, [facility] 132 [facility] [place] [address] [facility] 132 [facility] [place] [address] Anticoagulation management encounter*; Atrial thrombus; Thrombus due to any device, implant or graft, initial encounter Allergies Active Allergy Reactions Criticality Noted Date Comments Adhesive Tape Other (Please comment) 01/24/2008 Welts, blisters Bee Stings 02/14/2003 Bee Venom Hives 10/17/2019 Iodine Hives 10/17/2019 Ivp Dye 01/10/1998 hives documented as of this encounter (statuses as of 05/10/2024) Medications Medication Sig Dispensed Refills Start Date [...] EVERY DAY 100 Tablet 2 11/24/2023 11/24/19 Active Additional Information Patient taking differently: 40 mg Daily(AM), Reported on 04/20/2024 Metoprolol Succinate ER 25 MG Oral Tablet Extended Release 24 Hour (toPROL XL)Indications:Idio pathic cardiomyopathy (HCC),Chronic systolic congestive heart failure, NYHA class 2 (HCC),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) Take 1 Tablet by mouth in the morning. 100 Tablet 3 01/01/2024 Active Amiodarone HCl 200 MG Oral Tablet (Cordarone) Take 1 Tablet by mouth in the morning. 100 Tablet 3 01/01/2024 Active Levothyroxine Sodium 25 MCG Oral Tablet (Levoxyl)Indication s:Other specified hypothyroidism TAKE ONE TABLET BY MOUTH DAILY AT LEAST 30 MINUTES PRIOR TO FIRST MEAL OF THE DAY OR OTHER MEDICATIONS 100 Tablet 2 01/04/2024 Active documented as of this encounter (statuses as of 05/10/2024) Active Problems Problem Noted Date Diagnosed Date Nonischemic cardiomyopathy 03/17/2024 Chronic atrial fibrillation 12/29/2023 Atherosclerosis of aorta 06/23/2023 Atherosclerosis of coronary artery of [place] heart without angina pectoris 06/23/2023 Atrial thrombus [...] as of this encounter (statuses as of 05/10/2024) Resolved Problems Problem Noted Date Diagnosed Date [...] HX OF BREAST MALIGNANCY - ri ght, [id number], 200702/26/2011 10/04/2013 Polyneuropathy in other dise ases [...] as of this encounter (statuses as of 05/10/2024) Immunizations Name Administration Dates Next Due COVID-19 mRNA, LNP-s, No Pre serve, 2-Dose Series (Chayamuni) 07/19/2021,11/06/2020,10/11/2020 COVID-19, LNP-s, No Preserve , Sony-sucrose, Ages 12+ (Pfizer) 12/27/2021 COVID-19, MRNA-LNP, 23-24, P F, 30 MCG/0.3 mL, 12 YRS AND ABOVE, IM ([facility] 07/13/2023 COVID-19, MRNA-LNP, 24-25, P R, 30MCG/0.3ML, IM, 12YRS AND ABOVE (Lookwider) 04/28/2024 Covid-19, Mrna, Lnp-s, Pf, B ivalent, 30 Mcg, IM, 12 yrs and above (Chayamuni) 07/17/2022 Pneumococcal Conjugate Vacc, 13 Valent (Prevnar) [...] of this encounter Progress Notes * Tete Guerrero, [facility] - 05/10/2024 12:10 PM EDT Medication Therapy Disease Management - Anticoagulation Patient: Eduarda Bond | : 1945 Subjective Patient-Reported Symptoms: Patient Findings Negatives: Signs/symptoms of thrombosis, Signs/symptoms of bleeding, Change in health, Change in alcohol use, Change in activity, Upcoming invasive procedure, Missed doses, Extra doses, Change in medications, Change in diet/appetite, Bruising Objective Current Warfarin Dose As of 05/10/2024 Warfarin maintenance plan: 0 mg every Mon, Wed, Fri; 2.5 mg (5 mg x 0.5) all other days INR Result As of 05/10/2024 INR goal: 2.0-3.0 INR used for dosin.9 (05/10/2024) Assessment & Plan Warfarin Plan As of 05/10/2024 Full warfarin instructions: 05/10: Hold; 05/11: Hold; 05/12: Hold; Otherwise 0 mg every Mon, Wed, Fri;2.5 mg all other days Next INR check: 05/17/2024 Repeat PT/INR in 1 week(s) Weekly dose: not changed Additional Dosing Information: I spent a total of 10-19 minutes (exact time 10 mins) on the date of service in preparation, delivery, and documentation of the care provided to Eduarda oBnd excluding any time spent in the performance of separately billed services or time spent by another provider/QHP. Tete Guerrero [facility] Clinical Pharmacist 05/10/2024, 12:10 PM documented in this encounter Plan of Treatment Upcoming Encounters Date Type Department Care Team (Late st Contact Info) Description 05/12/2024 9:30 AM EDT Office Visit Cardiology, [facility] 132 [place] [address] Ramsey Gonsalez MD 132 [place] [address] 05/17/2024 2:10 PM EDT Anticoagulation Pharmacy, [facility] 132 [place] [address] [facility] 132 [place] [address] 05/23/2024 2:30 PM EDT Hem/Onc Treatment Hematology/Oncology Treatment, [place] [facility] [phone] Christin, Chair 5 Hem Onc [address] [address] 08/02/2024 10:20 AM EST Office Visit Podiatry [facility] [address] [place] [address] Nicki Gomez, DPM [address] [place] [address] 10/04/2024 3:00 PM EST Office Visit General Internal Medicine [facility] 200 [facility] [place] [address] Ruth Brandon MD 200 [facility] [place] [address] 04/28/2025 1:40 PM EDT Office Visit Rheumatology [place] [phone] [employer] [place], [place] [address] Sergio Coughlin MD [address] [place] [address] Scheduled Procedures Name Priority Associated Diagnoses Date/Ti [...] D LEVEL ONCE IN A LIFETIME-USE SMARTSET# 74365 Completed 04/20/2024, 02/10/2023, 03/18/2021, Additional history exists [...] this encounter Medical Devices Implanted Type Area Door Liner Device Identifier Shelf Expiration Date Model / Serial / Lot Port 6fr Chronoflex [id number] - [id number] Implanted:Qty: 1 on 02/22/2008 at [place] [facility] [place] Left: Chest CR BARD : ACCESS SYSTEMS [id number] / / [id number] documented as of this encounter Procedures Procedure Name Priority Date/Time Associated Diagnosis Comments INR FINGERSTICK, POINT OF CARE STAT 05/10/2024 11:43 AM EDT Atrial thrombus Thrombus due to any device, implant or graft, initial encounter Anticoagulation management encounter documented in this encounter Results * INR FINGERSTICK, POINT OF CARE (05/10/2024 11:43 AM EDT) Fingerstick INR 6.9 INR 11:59 AM EDT [facility] [place] 57-10 Blood 05/10/2024 11:4 3 AM EDT 05/10/2024 11:59 AM EDT Narrative [facility] [place] 57-10 - 05/10/2024 11:59 AM EDT Therapeutic ranges for non-operative patients: Prophylaxsis/treatment of DVT: (Range:2.0-3.0) Treatment of pulmonary embolism:(Range:2.0-3.0) Prevention of systemic embolism from: -tissue heart valves -acute myocardial infarction -valvular heart disease -atrial fibrillation (Range: 2.0-3.0) Mechanical prosthetic valves: (Range: 2.5-3.5) Tete Guerrero [facility] LAB POINT OF C ARE TEST DOCKED DEVICE UNSOLICITED RESULTS LAB[facility] [place] [address] [facility] [place] [address] documented in this encounter Visit Diagnoses Diagnosis Anticoagulation management [...] 1:06 PM 01/16/2008 7:05 PM Care Teams Butcher Fish Relationship Specialty Start Date End Date Rtuh Brandon MD [address] [place] [address] PCP - General Internal Medicine 04/25/21 documented as of this encounter"
--- OUTSIDE RECORDS SUMMARY | 2024-05-20 21:32 | External Medical Summary | Summary of Care ---
Author Name Unknown Organization [facility] Address [address] [place] [address] Phone [phone] Care Team Providers Care Chief Ophthalmic Technician Name Role Phone Ruth Brandon MD Primary Care Provider + Reason for Visit * Reason Onset Date Comments Medication Pre-auth 04/20/2024 Reclast Encounter Details Date Type Department Care Team (Late st Contact Info) Description 04/20/2024 Telephone Rheumatology [address] [place] [address] Sergio Coughlin MD [facility] [place] [address] Medication Pre-auth (Reclast ) Allergies Active Allergy Reactions Criticality Noted Date Comments Adhesive Tape Other (Please comment) 01/24/2008 Welts, blisters Bee Stings 02/14/2003 Bee Venom Hives 10/17/2019 Iodine Hives 10/17/2019 Ivp Dye 01/10/1998 hives documented as of this encounter (statuses as of 04/21/2024) Medications Medication Sig Dispensed Refills Start Date [...] as of this encounter (statuses as of 04/21/2024) Active Problems Problem Noted Date Diagnosed Date Nonischemic cardiomyopathy 03/17/2024 Chronic atrial fibrillation 12/29/2023 Atherosclerosis of aorta 06/23/2023 Atherosclerosis of coronary artery of [place] heart without angina pectoris 06/23/2023 Atrial thrombus [...] as of this encounter (statuses as of 04/21/2024) Resolved Problems Problem Noted Date Diagnosed Date [...] HX OF BREAST MALIGNANCY - ri ght, [id number], 200702/26/2011 10/04/2013 Polyneuropathy in other dise ases [...] as of this encounter (statuses as of 04/21/2024) Immunizations Name Administration Dates Next Due COVID-19 mRNA, LNP-s, No Pre serve, 2-Dose Series (Bonfyre) 07/19/2021,11/06/2020,10/11/2020 COVID-19, LNP-s, No Preserve , Sony-sucrose, Ages 12+ (Pfizer) 12/27/2021 COVID-19, MRNA-LNP, 23-24, P F, 30 MCG/0.3 mL, 12 YRS AND ABOVE, IM ([facility]) 07/13/2023 Covid-19, Mrna, Lnp-s, Pf, B ivalent, 30 Mcg, IM, 12 yrs and above (Bonfyre) 07/17/2022 Pneumococcal Conjugate Vacc, 13 Valent (Prevnar) 04/04/2015 Pneumococcal Polysaccharide PPV23 (Pneumovax) 09/28/2012,10/28/2006 Season Influenza, Quad, PF, Adjuvanted, 65+ Yrs, IM (FLUAD) 04/27/2020 Seasonal Influenza, PF, 6 M & above, [...] encounter Miscellaneous Notes * Telephone Encounter - Camryn Dale LPN - 04/21/2024 12:49 PM EDT Called and spoke with patient, informed her of estimated OOP of $29.74 dollars. She verbalized understanding and states she is agreeable to continue scheduling the Reclast. Per patient request scheduled for 05/23/2024 at 2:30 pm for her Reclast infusion. Patient unable todo earlier appointments due to other obligations. * Telephone Encounter - Camryn Dale LPN - 04/21/2024 12:38 PM EDT PFC review completed: Received: Today Valery Cook, ERIK Pt estimated OOP minimal at $29.74. Did not contact patient but will need scheduled. * Telephone Encounter - Yumiko Tomlinson RN - 04/21/2024 7:38 AM EDT Labs resulted, beacon is signed. Can send to scheduling once PFC has reviewed. * Telephone Encounter - Yumiko Tomlinson RN - 04/20/2024 3:54 PM EDT Referral entered, labs in process. Waiting for PFC/ signature/ resulted labs. * Telephone Encounter - Camryn Dale LPN - 04/20/2024 2:53 PM EDT Order received for Reclast [place] plan built and routed to provider Awaiting provider signature, prior authorization, and completed lab results prior to scheduling. * Telephone Encounter - Sergio Coughlin MD - 04/20/2024 2:46 PM EDT Can we look into coverage for IV Reclast. Her last dose was April 07, 2023. documented in this encounter Plan of Treatment Upcoming Encounters Date Type Department Care Team (Late st Contact Info) Description 05/10/2024 11:40 AM EDT Anticoagulation Pharmacy, [facility] 132 [facility] [place] [address] [facility] Clinic Sio[facility]ra Gan [facility] [place] [address] 05/12/2024 9:30 AM EDT Office Visit Cardiology, [facility] [address] [place] [address] Ramsey Gonsalez MD [address] [place] [address] 05/23/2024 2:30 PM EDT Hem/Onc Treatment Hematology/Oncology Treatment, [place] [address] [place] [phone] Christin, Chair 1 Hem Onc [facility] 200 [facility] [place] [address] 10/04/2024 3:00 PM EST Office Visit General Internal Medicine [facility] [place] [address] [place] [address] Ruth Brandon MD 200 [facility] [place] [address] 04/28/2025 1:40 PM EDT Office Visit Rheumatology [facility] [address] [place] [address] Sergio Coughlin MD [address] [place] [address] Scheduled Procedures Name Priority Associated Diagnoses Date/Ti me COLONOSCOPY FLEXIBLE PROXIMA L DIAGNOSTIC Recall Special screening for malignant neoplasm of colon Health Maintenance Due Date Last Done Comments Yi's Esophagus Surveilance 04/05/2016 04/05/2013, 04/05/2013, 03/09/2012, Additional history exists *BISPHONATE OR OTHER ACCEPTABLE MEDICATION NEEDED FOR OSTEOPOROSIS (REFER TO SMARTSET #1146) 04/08/2024 COVID-19 Vaccine ( season) 2024 07/13/2023, 07/17/2022, 12/27/2021, Additional history exists Influenza Vaccine (FLU shot) (#1) 2024 05/14/2023, 05/06/2022, 04/25/2021, Additional history exists DXA Scan 2024 2022, 04/18, 11/30/2014, Additional history exists TSH 09/22/2024 09/22/2023, 09/2 , 03/18/2021, Additional history exists Adult Wellness Visit 01/11/2025 01/12/2024, 09/17/19 23 Depression Screening 01/11/2025 01/12/2024, 01/12/20 24 GFR 04/20/2025 04/20/2024, 01/2024, 02/10/2023, Additional history exists Albumin/Creatinine Ratio 05/06/2025 05/06/2022, 01/2017 DTap/Tdap Vaccines (3 - Td or Tdap) 04/29/2026 04/29/2016, 03/02/2006 Pneumococcal Vaccine: 65+ Years Completed 04/04/2015, 09/28/2012, 10/28/2006 Zoster Vaccines Completed 01/15/2019, 02/2018, 04/02/2011 VITAMIN D LEVEL ONCE IN A LIFETIME-USE SMARTSET# 43645 Completed 04/20/2024, 02/10/2023, 03/18/2021, Additional history exists HPV (Gardasil) Vaccine Aged Out No lo nger eligible based on patient's age to complete this topic Hepatitis B Vaccine Aged Out No longe r eligible based on patient's age to complete this topic MENINGOCOCCAL (MENACTRA/MENVEO) Aged Out No longer eligible based on patient's age to complete this topic documented as of this encounter Medical Devices Implanted Type Area Sap Data Architect Device Identifier Shelf Expiration Date Model / Serial / Lot Port 6fr Chronoflex [id number] - [id number] [place] [facility] [place] Chest CR BARD : ACCESS SYSTEMS [id number] / / [id number] documented as of this encounter Visit Diagnoses Diagnosis Senile osteoporosis- Primary documented in this encounter Advance Directives * Full Code (Latest Code Status on File) Date Activated Date Inactivated Comments 02/22/2008 6:21 PM 02/25/2008 5:28 PM * Full Code Date Activated Date Inactivated Comments 02/22/2008 11:42 AM 02/22/2008 6:21 PM * Full Code Date Activated Date Inactivated Comments 01/14/2008 1:06 PM 01/16/2008 7:05 PM Care Teams Chief Ophthalmic Technician Relationship Specialty Start Date End Date Ruth Brandon MD [address] [place] [address] PCP - General Internal Medicine 04/25/21 documented as of this encounter
--- OUTSIDE RECORDS SUMMARY | 2024-05-20 21:32 | External Medical Summary ---
Author Name Unknown Address Unknown Organization [id number]:LABORATORY [facility] [address] - [address] [place] [address] Laboratory Report Ordering Provider Test Date Status RIYA RODRIGUEZ 05/10/2024 11:43:43 Final Therapeutic ranges for non-o perative patients:
Prophylaxsis/treatment of DVT: (Range:2.0-3.0)
Treatment of pulmonary embolism:(Range:2.0-3.0)
Prevention of systemic embolism from:
-tissue heart valves
-acute myocardial infarction
-valvular heart disease
-atrial fibrillation
(Range: 2.0-3.0)
Mechanical prosthetic valves: (Range: 2.5-3.5) Observation Date Value Abnormality Reference (Units ) Status INR in Capillary blood by Coagulation assay 05/10/2024 11:43:43 6.9 (INR) Final Performing Location LAB[facility]ATORY [facility] 57-1 0 - [address] [place] [address]
--- OUTSIDE RECORDS SUMMARY | 2024-05-20 21:32 | External Medical Summary ---
Author Name Unknown Address Unknown Organization [id number]:[facility] - [address] [place] [address] Laboratory Report Ordering Provider Test Date Status ALFREDO CARRERA 05/12/2024 10:23:22 Final Observation Date Value Abnormality Reference (Units ) Status T4, Free 05/12/2024 10:23:22 1.5 0.9-1.7 (n g/dL) Final Performing Location [facility] - [address] [place] [address]
--- OUTSIDE RECORDS SUMMARY | 2024-05-20 21:32 | External Medical Summary | Summary of Care ---
Author Name Unknown Organization [facility] Address [address] [place] [place] [address] Phone [phone] Care Team Providers Care Metal Cleaner Name Role Phone Ruth Brandon MD Primary Care Provider + Encounter Details Date Type Department Care Team (Late st Contact Info) Description 04/20/2024 Orders Only Rheumatology [place] [phone] [facility] [place] [address] Sergio Coughlin MD [address] [id number] [facility] [place] [id number] Allergies Active Allergy Reactions Criticality Noted Date Comments Adhesive Tape Other (Please comment) 01/24/2008 Welts, blisters Bee Stings 02/14/2003 Bee Venom Hives 10/17/2019 Iodine Hives 10/17/2019 Ivp Dye 01/10/1998 hives documented as of this encounter (statuses as of 04/20/2024) Medications Medication Sig Dispensed Refills Start Date [...] as of this encounter (statuses as of 04/20/2024) Active Problems Problem Noted Date Diagnosed Date Nonischemic cardiomyopathy 03/17/2024 Chronic atrial fibrillation 12/29/2023 Atherosclerosis of aorta 06/23/2023 Atherosclerosis of coronary artery of [place] heart without angina pectoris 06/23/2023 Atrial thrombus [...] as of this encounter (statuses as of 04/20/2024) Resolved Problems Problem Noted Date Diagnosed Date [...] HX OF BREAST MALIGNANCY - ri ght, [id number], 200702/26/2011 10/04/2013 Polyneuropathy in other dise ases [...] as of this encounter (statuses as of 04/20/2024) Immunizations Name Administration Dates Next Due COVID-19 mRNA, LNP-s, No Pre serve, 2-Dose Series (Fangxinmei) 07/19/2021,11/06/2020,10/11/2020 COVID-19, LNP-s, No Preserve , Sony-sucrose, Ages 12+ (Pfizer) 12/27/2021 COVID-19, MRNA-LNP, 23-24, P F, 30 MCG/0.3 mL, 12 YRS AND ABOVE, IM (PFIZER-Comirnaty) 07/13/2023 Covid-19, Mrna, Lnp-s, Pf, B ivalent, [...] Description 05/10/2024 11:40 AM EDT Anticoagulation Pharmacy, [facility] 132 [place] [address] [facility] 132 [place] [address] 05/12/2024 9:30 AM EDT Office Visit Cardiology, [facility] 132 [place] [address] Ramsey Gonsalez MD 132 [place] [address] 10/04/2024 3:00 PM EST Office Visit General Internal Medicine [facility] [place] [address] [place] [address] Ruth Brandon MD [address] [facility] [place] [address] 04/28/2025 1:40 PM EDT Office Visit Rheumatology [place] [address] [place] [address] Sergio Coughlin MD [address] [place] [address] Scheduled Procedures Name Priority Associated Diagnoses Date/Ti [...] D LEVEL ONCE IN A LIFETIME-USE SMARTSET# [id number] Completed 02/10/2023, 03/18/2021, 02/02/2020, Additional history exists HPV (Gardasil) Vaccine Aged Out No lo nger eligible based on patient's age to complete this topic Hepatitis B Vaccine Aged Out No longe r eligible based on patient's age to complete this topic MENINGOCOCCAL (MENACTRA/MENVEO) Aged Out No longer eligible based on patient's age to complete this topic documented as of this encounter Medical Devices Implanted Type Area Mineral Surveying Technician Device Identifier Shelf Expiration Date Model / Serial / Lot Port 6fr Chronoflex [id number] - [id number] Implanted:Qty: 1 on 02/22/2008 [place] [facility] [place]: Chest CR BARD : ACCESS SYSTEMS [id number] / / [id number] documented as of this encounter Advance Directives * Full Code (Latest Code Status on File) Date Activated Date Inactivated Comments 02/22/2008 6:21 PM 02/25/2008 5:28 PM * Full Code Date Activated Date Inactivated Comments 02/22/2008 11:42 AM 02/22/2008 6:21 PM * Full Code Date Activated Date Inactivated Comments 01/14/2008 1:06 PM 01/16/2008 7:05 PM Care Teams Metal Cleaner Relationship Specialty Start Date End Date Ruth Brandon MD 200 [facility] [place], [place] [address] PCP - General Internal Medicine 04/25/21 documented as of this encounter
--- OUTSIDE RECORDS SUMMARY | 2024-05-20 21:32 | External Medical Summary ---
Author Name Unknown Address Unknown Organization K0G:[facility] [place] [address] - [address] [place] [address] Laboratory Report Ordering Provider Test Date Status ALFREDO CARRERA 05/12/2024 10:23:22 Final Observation Date Value Abnormality Reference (Units ) Status SYNC LEUKOCYTES IN BLOOD BY AUTOMATED COUNT 05/12/2024 10:23:22 3.99 Below low normal 4.00-10.80 (K/uL) Final Segs 05/12/2024 10:23:22 67.6 40.0-75.0 (%) Final Lymphs % 05/12/2024 10:23:22 20.3 18.0-42.0 (%) Final Monos 05/12/2024 10:23:22 9.8 1.0-11.0 (%) Final Eosinophils 05/12/2024 10:23:22 2.0 0.0-6.0 (%) Final Basos 05/12/2024 10:23:22 0.3 0.0-2.0 (%) Final Absolute Segs 05/12/2024 10:23:22 2.70 1.80-7.70 (K/uL) Final Lymphs, absolute 05/12/2024 10:23:22 0.81 Below low normal 1.00-4.80 (K/ul) Final Monos, Abs 05/12/2024 10:23:22 0.39 0.00-1.10 (K/uL) Final Eos, Abs 05/12/2024 10:23:22 0.08 0.00-0.70 (K/uL) Final Basos, Abs 05/12/2024 10:23:22 0.01 0.00-0.20 (K/uL) Final Performing Location LAB[facility]ATORY [place] 57-[address] 0 - [address] [place] [address]
--- OUTSIDE RECORDS SUMMARY | 2024-05-20 21:32 | External Medical Summary | Summary of Care ---
Author Name Unknown Organization [facility] Address [address] [facility] [place] [address] Phone [phone] Care Team Providers Care County Court Judge Name Role Phone Ruth Brandon MD Primary Care Provider + Reason for Visit * Reason Comments Follow Up Encounter Details Date Type Department Care Team (Latest Contact Info) Description 05/12/2024 9:30 AM EDT Office Visit Cardiology, [facility] [address] [facility] [place] [address] Ramsey Gonsalez MD [address] [place] [address] PAF (paroxysmal atrial fibrillation) (HCC)*; Idiopathic cardiomyopathy (HCC) Allergies Active Allergy Reactions Criticality Noted Date [...] 90 Tablet 3 09/08/19 24 025 Active Warfarin Sodium 5 MG Oral Tablet (Coumadin)Indicati ons:Atrial thrombus TAKE 1 TABLET BY MOUTH EVERY EVENING OR DIRECTED BY ANTICOAGULATION CLINIC 90 Tablet 3 10/20/19 24 025 Active Additional Information Patient taking differently: 2.5 [...] morning. 50 Tablet 3 05/12/20 24 Active Amiodarone HCl 200 MG Oral Tablet (Cordarone) Take 1 Tablet by mouth in the morning. 100 Tablet 3 01/01/20 24 024 Discontinued documented as of this encounter (statuses as of 05/12/2024) Active Problems Problem Noted Date Diagnosed Date Nonischemic cardiomyopathy 03/17/2024 Chronic atrial fibrillation 12/29/2023 Atherosclerosis of aorta 06/23/2023 Atherosclerosis of coronary artery of [place] heart without angina pectoris 06/23/2023 Atrial thrombus [...] HX OF BREAST MALIGNANCY - ri ght, [id number], 200702/26/2011 10/04/2013 Polyneuropathy in other dise ases [...] mRNA, LNP-s, No Pre serve, 2-Dose Series ([employer]) 07/19/2021,11/06/2020,10/11/2020 COVID-19, LNP-s, No Preserve , Sony-sucrose, Ages 12+ ([employer]) 12/27/2021 COVID-19, MRNA-LNP, 23-24, P F, 30 MCG/0.3 mL, 12 YRS AND ABOVE, IM ([employer] [email or web address]) 07/13/2023 COVID-19, MRNA-LNP, 24-25, P R, 30MCG/0.3ML, IM, 12YRS AND ABOVE ([employer]) 04/28/2024 Covid-19, Mrna, Lnp-s, Pf, B ivalent, 30 Mcg, IM, 12 yrs and above ([employer]) 07/17/2022 Influenza, Whole Virus 09/15/1985 Pneumococcal Conjugate [...] Date Smoking Tobacco: Never Smokeless Tobacco: Never Tobacco Cessation:Counseling Given: Not Answered Alcohol Use Standard Drinks/Week Comments Not Currently [...] on file documented as of this encounter Last Filed Vital Signs Vital Sign Reading Time Taken Comments Blood Pressure 138/72 05/12/2024 9:27 AM EDT Pulse 68 05/12/2024 9:27 AM EDT Temperature - - Respiratory Rate 12 05/12/2024 9:27 AM EDT Oxygen Saturation - - Inhaled Oxygen Concentration - - Weight 80.8 kg (178 lb 1.6 oz) 05/12/2024 9:27 A M EDT Height - - Body Mass Index 38.42 04/20/2024 1:14 PM EDT documented in this encounter Progress Notes * Ramsey Gonsalez MD - 05/12/2024 9:30 AM EDT 05/12/2024 Cardiology Follow Up Referring Provider: PCP: RUTH BRANDON[address] [address] [phone] Chief Complaint: Follow-up cardiomyopathy, paroxysmal atrial fibrillation SUBJECTIVE: Eduarda Bond is a 78 year old year old female with ongoing cardiac issues 1. Nonischemic cardiomyopathy. 2. Chronic left bundle branch block. 3. Normal coronary arteries by cardiac catheterization June 1999 and February 2012. 4. Mild to moderate mitral insufficiency. 5. Class 2-3 congestive heart failure, systolic with improvement post Bi V pacemaker implantation 6. History of breast carcinoma, right, status post mastectomy, chemotherapy and radiation therapy. 7. BIV ICD implantation August 2017 at [facility] [place] with balloon angioplasty of the left subclavian vein with vascular surgery to allow lead placement. Generator exchange December 21, 2023, Sarah Jhaveri MP 8. Repeat 2D echocardiogram since BIV placement, which demonstrated interval improvement in her LV function to 48%. 9. Status post mechanical fall October 17, 2019 with substantial trauma including sternal fracture , lumbar compression fractures and distal right radial and ulnar fracture 10. Echo October 03, 2022 demonstrating thrombus in the right atrium likely connected to the pacerlead with resolve on warfarin 11. Paroxysmal atrial fibrillation in association with pacer defibrillator going [facility] December 21, 2023 Patient presents today in routine follow-up. Last seen during hospitalization in December with atrial fibrillation with rapid response, pacer defibrillator at [facility]. Patient begun on amiodarone with successful conversion to sinus rhythm. Device exchange performed Patient doing relatively well from cardiac standpoint no further dizziness lightheadedness tachy palpitations syncope or near syncope. No signs of fluid retention or edema INR somewhat variable Recent back pain after bending sharply No acute weight loss or gain Appetite stable Tolerating medications A Complete Review of Systems is as stated above or negative. Patient Active Problem List Diagnosis Hypothyroidism Mitral valve disorder Restless legs syndrome Decreased hearing Yi esophagus Essential hypertension with goal blood pressure less than 130/80 History of breast cancer Gastroesophageal reflux disease without esophagitis Vitamin D deficiency Idiopathic cardiomyopathy (HCC) Chronic systolic congestive heart failure, NYHA class 2 (HCC) Degenerative disc disease, cervical Presence of automatic cardioverter/defibrillator (AICD) 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) Senile osteoporosis Fracture of vertebra due to osteoporosis with routine healing Atrial thrombus Thrombus due to any device, implant or graft, initial encounter Atherosclerosis of aorta (HCC) Atherosclerosis of coronary artery of [place] heart without angina pectoris Chronic atrial fibrillation (HCC) Nonischemic cardiomyopathy (HCC) Review of patient's allergies indicates: Allergen Reactions Adhesive Tape Other (Please comment) Welts, blisters Bee Stings Bee Venom Hives Iodine Hives Ivp Dye hives Current Outpatient Medications Medication Sig Dispense Refill VITAMIN B-6 100 MG PO TABS Take 1 Tablet by mouth in the morning. CALCIUM 1250 MG PO TABS Take 1 Tablet by mouth in the morning. ASPIRIN 81 MG PO TABS Take 1 Tablet by mouth in the morning. VITAMIN D 2000 UNITS PO CAPS Take 1,000 Units by mouth in the morning. albuterol (VENTOLIN HFA) 108 (90 BASE) MCG/ACT inhaler Inhale 2 Puffs by mouth every 6 hours as needed for Wheezing. 3 Inhaler 1 acetaminophen (TYLENOL) 500 MG Tablet Take 1 Tablet by mouth 2 times a day as needed (pain). Amoxicillin 500 MG Oral Capsule (Amoxil) Take 4 capsules prior to appointment 4 Capsule 6 Furosemide 20 MG Oral Tablet (Lasix) TAKE ONE TABLET BY MOUTH EVERY DAY 5 DAYS PER WEEK, WITH AN EXTRA TABLET ON ALTERNATIVE DAYS IF NEEDED 90 Tablet 3 Triamcinolone Acetonide 0.1 % External Cream (Aristocort) Apply to areas of itchy rash on back, arms, and neck twice daily 450 g 5 Entresto 24-26 MG Oral Tablet (sacubitril-valsartan 24-26 mg per tab) TAKE ONE TABLET BY MOUTH TWICE A DAY 200 Tablet 3 Rosuvastatin Calcium 10 MG Oral Tablet (Crestor) TAKE ONE TABLET BY MOUTH EVERY DAY IN THE MORNING 90 Tablet 3 Warfarin Sodium 5 MG Oral Tablet (Coumadin) TAKE 1 TABLET BY MOUTH EVERY EVENING OR DIRECTED BY ANTICOAGULATION CLINIC (Patient taking differently: Take 0.5 Tablets by mouth. 4 days a week , thu, , thu, thu) 90 Tablet 3 Pantoprazole Sodium 40 MG Oral Tablet Delayed Release (Protonix) TAKE ONE TABLET BY MOUTH EVERY DAY(Patient taking differently: 1 Tablet in the morning.) 100 Tablet 2 Metoprolol Succinate ER 25 MG Oral Tablet Extended Release 24 Hour (toPROL XL) Take 1 Tablet by mouth in the morning. 100 Tablet 3 Levothyroxine Sodium 25 MCG Oral Tablet (Levoxyl) TAKE ONE TABLET BY MOUTH DAILY AT LEAST 30 MINUTES PRIOR TO FIRST MEAL OF THE DAY OR OTHER MEDICATIONS 100 Tablet 2 Amiodarone HCl 200 MG Oral Tablet (Cordarone) Take one-half Tablet by mouth in the morning. 50 Tablet 3 Comirnaty 30 MCG/0.3ML Intramuscular Suspension Prefilled Syringe (COVID-19 mRNA Vaccine 12 years and above [employer]) Inject into a large muscle. 0.3 mL 0 No current facility-administered medications for this visit. OBJECTIVE/PHYSICAL EXAMINATION: BP 138/72 (BP Site: Left Arm, BP Position: Sitting, BP Cuff Size: Large) | Pulse 68 | Resp 12 | Wt 80.8 kg (178 lb 1.6 oz) | BMI 38.42 kg/m | BSA 1.8 m General: Age appropriate in no acute distress Head: normocephalic, no masses, lesions, tenderness or abnormalities Eyes: conjunctiva are pink and non-injected, sclera clear Throat: clear Nares: without discharge Neck: supple, no adenopathy, normal jugular venous pulse, no hepatojugular reflux, no carotid bruits Chest: normal shape and normal respiratory effort Lungs: clear to auscultation and percussion Cardiac Exam: - regular rate & rhythm, no murmur, gallop or rub - normal S-1, normal S-2 Abdomen: abdomen soft, non-tender, no abnormal masses, no hepatosplenomegaly, no abdominal bruit, no femoral bruit Musculoskeletal: no gait disturbance, no joint inflammation, no deforming arthritis Extremities: no edema, no cyanosis, pulses intact 2+/4 Neuro: grossly normal exam Data: EKG performed today, 05/12/2024 , and reviewed personally : Atrial sensed ventricular paced rhythm at 66 beats per minute QT corrected 484 Lipid Panel Results: Results for orders placed or performed in visit on 02/02/20 LIPID PANEL Result Value Ref Range HOURS FASTING >8 HOURS hours Triglycerides 87 0 - 174 mg/dL Cholesterol 180 <200 mg/dL HDL Cholesterol 78 >49 mg/dL NON-HDL CHOLESTEROL 102 0 - 159 mg/dL LDL Cholesterol 85 0 - 129 mg/dL Results for orders placed or performed in visit on 12/16/22 LIPID PANEL WITH DIRECT LDL IF TG IS HIGH Result Value Ref Range Triglycerides 86 <=174 mg/dL Cholesterol 140 <200 mg/dL HDL Cholesterol 73 >49 mg/dL Non-HDL Cholesterol 67 <=159 mg/dL LDL Cholesterol 50 <=129 mg/dL Echocardiogram February 23, 2023 The qualitative LV ejection fraction is 50-54% (normal). The LV wall thickness is normal. The left ventricular wall motion is normal. The left ventricular diastolic function is moderately abnormal (grade II). Mild mitral regurgitation is present. Mild tricuspid regurgitation is present. The estimated pulmonary artery systolic pressure is 40-45mm Hg. Compared to prior study dated 10/03/2022, no mobile lesion is visualized ASSESSMENT: 78 year old year old female With ongoing concerns as listed below PLAN: 1. Nonischemic cardiomyopathy with compensated chronic systolic and diastolic heart failure on appropriate therapies 2. Biventricular pacer defibrillator status post generator exchange December 2023. Patient to follow with device Clinic 3. Paroxysmal atrial fibrillation: Patient anticoagulated chronically with warfarin. Currently maintaining sinus rhythm with amiodarone. Will reduce amiodarone to 100 mg p.o. q.day Check lab work CBC Chem profile, TSH with T4 today Patient to let coag clinic know about reduction in amiodarone Patient to promptly report any tachyarrhythmias DISPOSITION: Return 6 months Ramsey Gonsalez MD Cardiology, [address] [address] documented in this encounter Nursing Notes * Sangita Almaraz CMA - 05/12/2024 9:27 AM EDT Examination Room: 13 Name: Eduarda Bond Date of : (1945). Reason for Visit: 5M f/u Interim Hospitalization(s): [facility] May Problems/Concerns: denies Chest Pain/SOB: denies [facility] Discussed: Not applicable [facility] is a way you can talk to your provider online through e-mail. Would you like to sign up? I can activate it for you? ALREADY ACTIVE Patient was instructed to not get up on the exam table until directed and assisted by their provider; patient is to remain seated in the chair/ wheelchair/ exam table for fall prevention and safety reasons. Patient is aware to have assistance to step down off exam table with personnel. Patient voiced full comprehension of instructions. documented in this encounter Miscellaneous Notes * Addendum Note - Loretta Cummins CMA - 05/12/2024 10:23 AM EDTAddended by: LORETTA CUMMINS on: 05/12/2024 10:23 AM Modules accepted: Orders documented in this encounter Plan of Treatment Upcoming Encounters Date Type Department Care Team (Latest Contact Info) Description 05/12/2024 10:40 AM EDT [facility] [place] [address] [place] [phone] [place] [address] PAF (paroxysmal atrial fibrillation) (HCC); Idiopathic cardiomyopathy (HCC) 05/17/2024 2:10 PM EDT [facility], [facility] [place] [address] [place] [address] [facility] [address] [place] [address] 05/23/2024 2:30 PM EDT Hem/Onc Treatment Hematology/Oncolog y Treatment, [place] [address] [place] [address] Christin, Chair [address] Hem Onc Scenery [address] [place] [address] 08/02/2024 10:20 AM EST Office Visit Podiatry [facility] [address] [facility] [place] [address] Nicki Gomez, DPM [address] [place] [address] 10/04/2024 3:00 PM EST Office Visit General Internal Medicine [facility] [address] [facility] [place] [address] Ruth Brandon MD [address] [facility] [place] [address] 11/22/2024 2:00 PM EDT Office Visit Cardiology, [facility] [address] [facility] [place] [address] Rashmi Graham PA-C [facility] [address] 04/28/2025 1:40 PM EDT Office Visit Rheumatology [address] [place], [place] [address] Sergio Coughlin MD [address] [place] [address] [place], [place] [address] Pending Results Name Type Priority Associated Diagnoses Date /Time CBC WITH WBC DIFFERENTIAL Lab Routine PAF (paroxysmal atrial fibrillation) (HCC) Idiopathic cardiomyopathy (HCC) 05/12/2024 10:23 AM EDT COMPREHENSIVE METABOLIC PANEL Lab Routine PAF (paroxysmal atrial fibrillation) (HCC) Idiopathic cardiomyopathy (HCC) 05/12/2024 10:23 AM EDT TSH WITH FREE T4 IF INDICATED Lab Routine PAF (paroxysmal atrial fibrillation) (HCC) Idiopathic cardiomyopathy (HCC) 05/12/2024 10:23 AM EDT Scheduled Orders Name Type Priority Associated Diagnoses Orde r Schedule CBC WITH WBC DIFFERENTIAL Lab Routine PAF (paroxysmal atrial fibrillation) (HCC) Idiopathic cardiomyopathy (HCC) Expected: 05/12/2024, Expires: 05/12/2025 COMPREHENSIVE METABOLIC PANEL Lab Routine PAF (paroxysmal atrial fibrillation) (HCC) Idiopathic cardiomyopathy (HCC) Expected: 05/12/2024, Expires: 05/12/2025 EKG EKG Routine PAF (paroxysmal atrial fibrillation) (HCC) Ordered: 05/12/2024 Scheduled Procedures Name Priority Associated Diagnoses Date/Ti [...] Additional history exists Albumin/Creatinine Ratio 05/06/2025 05/06/2022, 1101/2017 DTap/Tdap Vaccines (3 - Td or Tdap) 04/29/2026 04/29/2016, 03/02/2006 Pneumococcal Vaccine: 65+ Years Completed 04/04/2015, 09/28/2012, 10/28/2006 Zoster Vaccines Completed 01/15/2019, 090 02/2018, 04/02/2011 VITAMIN D LEVEL ONCE IN A LIFETIME-USE SMARTSET# [id number] Completed 04/20/2024, 02/10/2023, 03/18/2021, Additional history exists [...] this encounter Medical Devices Implanted Type Area Principal Quality Engineer Device Identifier Shelf Expiration Date Model / Serial / Lot Port 6fr Chronoflex [id number] - [id number] Implanted:Qty: 1 on 02/22/2008 at [place] [facility] [place] Left: Chest CR BARD : [employer] [id number] / / [id number] documented as of this encounter Visit Diagnoses Diagnosis PAF (paroxysmal atrial fibrillation) (HCC)- Primary Atrial fibrillation Idiopathic cardiomyopathy (HCC) Other primary cardiomyopathies PAF (paroxysmal atrial fibrillation) (HCC) Atrial fibrillation [...] 1:06 PM 01/16/2008 7:[address] Judge Relationship Specialty Start Date End Date Ruth Brandon MD [address] [place] [address] PCP - General Internal Medicine 04/25/21 documented as of this encounter"
--- OUTSIDE RECORDS SUMMARY | 2024-05-20 21:32 | External Medical Summary | Summary of Care ---
Author Name Unknown Organization [facility] Address [address] [facility] [address] Phone [phone] Care Team Providers Care Cras Name Role Phone Ruth Brandon MD Primary Care Provider + Reason for Visit * Reason Comments Follow Up Nail care Encounter Details Date Type Department Care Team (Late st Contact Info) Description 05/03/2024 12:40 PM EDT Office Visit Podiatry [facility] [place] [address] Nicki Gomez DPM [address] [facility] [place] [address] Encounter for other procedures for purposes other than remedying health state*; Thickened nails Allergies Active Allergy Reactions Criticality Noted Date Comments Adhesive Tape Other (Please comment) 01/24/2008 Welts, blisters Bee Stings 02/14/2003 Bee Venom Hives 10/17/2019 Iodine Hives 10/17/2019 Ivp Dye 01/10/1998 hives documented as of this encounter (statuses as of 05/03/2024) Medications Medication Sig Dispensed Refills Start Date [...] as of this encounter (statuses as of 05/03/2024) Active Problems Problem Noted Date Diagnosed Date Nonischemic cardiomyopathy 03/17/2024 Chronic atrial fibrillation 12/29/2023 Atherosclerosis of aorta 06/23/2023 Atherosclerosis of coronary artery of [place] heart without angina pectoris 06/23/2023 Atrial thrombus [...] as of this encounter (statuses as of 05/03/2024) Resolved Problems Problem Noted Date Diagnosed Date [...] HX OF BREAST MALIGNANCY - ri ght, [id number], 200702/26/2011 10/04/2013 Polyneuropathy in other dise ases [...] as of this encounter (statuses as of 05/03/2024) Immunizations Name Administration Dates Next Due COVID-19 mRNA, LNP-s, No Pre serve, 2-Dose Series ([employer]) 07/19/2021,11/06/2020,10/11/2020 COVID-19, LNP-s, No Preserve , Sony-sucrose, Ages 12+ ([employer]) 12/27/2021 COVID-19, MRNA-LNP, 23-24, P F, 30 MCG/0.3 mL, 12 YRS AND ABOVE, IM ([employer]) 07/13/2023 COVID-19, MRNA-LNP, 24-25, P R, 30MCG/0.3ML, IM, 12YRS AND ABOVE ([employer]) 04/28/2024 Covid-19, Mrna, Lnp-s, Pf, B ivalent, 30 Mcg, IM, 12 yrs and above ([employer]) 07/17/2022 Pneumococcal Conjugate Vacc, 13 Valent [...] as of this encounter Progress Notes * Nicki Gomez DPM - 05/03/2024 1:16 PM EDT Podiatry Established Note [facility] Name: Eduarda Bond : 1945 Date: 05/03/2024 REASON FOR VISIT: Routine nail care SUBJECTIVE: This patient is a 78 year old female who presents today for routine nail care. States overall she is feeling well. No new issues or complaints. Denies any changes in health or medicationssince her last appointment. On coumadin. Past Medical History: Diagnosis Date Yi's esophagus 03/09/2012 UPPER GI ENDOSCOPY DIAGNOSTIC performed by Uma Lin DO at [facility] [place], path showsshort segment Barretts esophagitis repeat in 1 year Barretts esophagus 04/05/2013 UPPER GI ENDOSCOPY DIAGNOSTIC performed by Uma Lin DO at [facility], inflammation consistent with long segment barretts, repeat egd in 3 years Breast cancer (HCC) 01/14/2008 right breast with mastectomy Chronic atrial fibrillation (HCC) 12/29/2023 HTN, goal below 140/90 Hypothyroidism Left bundle branch block Malignant neoplasm of lower outer quadrant of female breast 12/13/2007 1 of 26 positive lymph nodes Menopause Mitral valve disorder MVP Presence of automatic cardioverter/defibrillator (AICD) 09/03/2017 Reflux esophagitis ALLERGIES: Review of patient's allergies indicates: Allergen Reactions Adhesive Tape Other (Please comment) Welts, blisters Bee Stings Bee Venom Hives Iodine Hives Ivp Dye hives REVIEW OF SYSTEMS: Constitutional: Negative for fever, activity change and appetite change. Musculoskeletal: Negative for joint swelling, arthralgias and gait problem. Skin: Negative for color change, rash and wound. Neurological: Negative for dizziness, weakness and numbness. FOCUSED PODIATRIC EXAM: Vitals: There were no vitals filed for this visit. General: Patient is awake alert oriented to person place time. No apparent distress. Vascular: Pedal pulses are palpable. CFT<3 sec. No edema noted. +varicosities Neurologic: Intact to pain and light touch. No weakness or hypersensitivity. No paresthesia Musculoskeletal: MMT 5/5 with no pain on ROM in dorsiflexion, plantarflexion, inversion and eversion to both lower extremities. No gross deformities, masses or abnormalities noted. No defect or loss of arch height, no acute deformity, no bruising or swelling Dermatological: Normal proximal to distal cooling to the lower extremities. Texture is dry. Turgor is within normallimits. No open wounds, lesions or abrasions. Nails 1-5, talya are elongated and thickened. DIAGNOSTIC STUDIES: None ASSESSMENT: 1.Encounter for other procedures for purposes other than remedying health state (primary encounter diagnosis) 2.Thickened nails PLAN: - Pt seen and evaluated - Nails X10 were trimmed manually with the use of nail nippers. - Follow up in 3 months - Call with any questions or concerns. Nicki Gomez DPM documented in this encounter Nursing Notes * Debbie Meraz LPN - 05/03/2024 12:58 PM EDT Pt presents for routine nail care, no pain in feet. documented in this encounter Plan of Treatment Upcoming Encounters Date Type Department Care Team (Late st Contact Info) Description 05/10/2024 11:40 AM EDT Anticoagulation Pharmacy, [facility] [address] [place] [address] [facility] [address] [place] [address] 05/12/2024 9:30 AM EDT Office Visit Cardiology, [facility] [address] [place] [address] Ramsey Gonsalez MD [address] [place] [address] 05/23/2024 2:30 PM EDT Hem/Onc Treatment Hematology/Oncology Treatment, [place] [address] [facility] [place] [id number] Christin, Chair 5 Hem Onc Scenery 200 [place] [address] 08/02/2024 10:20 AM EST Office Visit Podiatry [facility] [place] [address] [place] [address] Nicki Gomez DPM [address] [place] [address] 10/04/2024 3:00 PM EST Office Visit General Internal Medicine [facility] [address] [facility] [place] [address] Ruth Brandon MD 200 [facility] [place] [address] 04/28/2025 1:40 PM EDT Office Visit Rheumatology [facility] [address] [place] [address] Sergio Coughlin MD [address] [place] [address] Scheduled Procedures Name Priority Associated Diagnoses Date/Ti [...] D LEVEL ONCE IN A LIFETIME-USE SMARTSET# [id number] Completed 04/20/2024, 02/10/2023, 03/18/2021, Additional history exists [...] this encounter Medical Devices Implanted Type Area Health Information Specialist Device Identifier Shelf Expiration Date Model / Serial / Lot Port 6fr Chronoflex [id number] - [id number] Implanted:Qty: 1 on 02/22/2008 at [place] [facility] [place] Left: Chest CR BARD : [employer] [id number] / / [id number] documented as of this encounter Visit Diagnoses Diagnosis Encounter for other procedures for purposes other than remedying health state- Primary Thickened nails Other specified disease of nail documented in this encounter Advance Directives * Full Code (Latest Code Status on File) Date Activated Date Inactivated Comments 02/22/2008 6:21 PM 02/25/2008 5:28 PM * Full Code Date Activated Date Inactivated Comments 02/22/2008 11:42 AM 02/22/2008 6:21 PM * Full Code Date Activated Date Inactivated Comments 01/14/2008 1:06 PM 01/16/2008 7:05 PM Care Teams Cras Relationship Specialty Start Date End Date Ruth Brandon MD [address] [place] [address] [place] [address] PCP - General Internal Medicine 04/25/21 documented as of this encounter
--- OUTSIDE RECORDS SUMMARY | 2024-05-20 21:32 | External Medical Summary | Summary of Care ---
Author Name Unknown Organization [facility] Address [address] [place] [facility] [place] [address] Phone [phone] Care Team Providers Care Hub Inventory Specialist Name Role Phone Ruth Brandon MD Primary Care Provider + Reason for Visit * Reason Comments Nurse Documentation Flu shot. HD Fluzone Encounter Details Date Type Department Care Team (Latest Contact Info) Description 04/28/2024 11:00 AM EDT Cardiac Studies Cardiac Studies, [facility] 132 [facility] [place] [address] Need for prophylactic vaccination and inoculation against influenza* Allergies Active Allergy Reactions Criticality Noted Date Comments Adhesive Tape Other (Please comment) 01/24/2008 Welts, blisters Bee Stings 02/14/2003 Bee Venom Hives 10/17/2019 Iodine Hives 10/17/2019 Ivp Dye 01/10/1998 hives documented as of this encounter (statuses as of 05/04/2024) Medications Medication Sig Dispensed Refills Start Date [...] as of this encounter (statuses as of 05/04/2024) Active Problems Problem Noted Date Diagnosed Date Nonischemic cardiomyopathy 03/17/2024 Chronic atrial fibrillation 12/29/2023 Atherosclerosis of aorta 06/23/2023 Atherosclerosis of coronary artery of creek heart without angina pectoris 06/23/2023 Atrial thrombus [...] as of this encounter (statuses as of 05/04/2024) Resolved Problems Problem Noted Date Diagnosed Date [...] HX OF BREAST MALIGNANCY - ri ght, [id number], 200702/26/2011 10/04/2013 Polyneuropathy in other dise ases [...] as of this encounter (statuses as of 05/04/2024) Immunizations Name Administration Dates Next Due COVID-19 mRNA, LNP-s, No Pre serve, 2-Dose Series (Oration) 07/19/2021,11/06/2020,10/11/2020 COVID-19, LNP-s, No Preserve , Sony-sucrose, Ages 12+ (Pfizer) 12/27/2021 COVID-19, MRNA-LNP, 23-24, P F, 30 MCG/0.3 mL, 12 YRS AND ABOVE, IM ([facility]) 07/13/2023 COVID-19, MRNA-LNP, 24-25, P R, 30MCG/0.3ML, IM, 12YRS AND ABOVE ([place] [facility]) 04/28/2024 Covid-19, Mrna, Lnp-s, Pf, B ivalent, [...] on file documented as of this encounter Nursing Notes * Angela Guzman CMA - 04/28/2024 1:31 PM EDT Do you have any severe allergies? no Do you have any allergies to Latex? No Have you previously received an influenza vaccine? Yes Have you ever had a severe reaction after the previous dose of the influenza vaccine? no Are you allergic to eggs? no Have you ever had Guillain-[place] syndrome? no Do you currently have any fever or illness? no Flu vaccine given as ordered. VIS given to patient. documented in this encounter Plan of Treatment Upcoming Encounters Date Type Department Care Team (Late st Contact Info) Description 05/10/2024 11:40 AM EDT Anticoagulation Pharmacy, [facility] [address] [place] [address] [facility] [address] [place] [address] 05/12/2024 9:30 AM EDT Office Visit Cardiology, [facility] [address] [place] [address] Ramsey Gonsalez MD [address] [place] [address] 05/23/2024 2:30 PM EDT Hem/Onc Treatment Hematology/Oncology [facility], [place] [address] [place] [phone] Christin, Chair 5 Hem Onc [address] [place] [address] 08/02/2024 10:20 AM EST Office Visit Podiatry [facility] [address] [facility] [place] [address] Nicki Gomez DPM [address] [facility] [place] [address] 10/04/2024 3:00 PM EST Office Visit General Internal Medicine [facility] 200 [facility] [place] [address] Ruth Brandon MD 200 [facility] [place] [address] 04/28/2025 1:40 PM EDT Office Visit Rheumatology [place] [address] [facility] [place] [address] Sergio Coughlin MD [facility] [place] [address] Scheduled Procedures Name Priority Associated Diagnoses Date/Ti [...] D LEVEL ONCE IN A LIFETIME-USE SMARTSET# [id number] Completed 04/20/2024, 02/10/2023, 03/18/2021, Additional history exists [...] this encounter Medical Devices Implanted Type Area Renewals Representative Device Identifier Shelf Expiration Date Model / Serial / Lot Port 6fr Chronoflex [id number] - [id number] [place]ed:Q[place] 1 [place]22/[place] [facility] [place]: Chest CR BARD : ACCESS SYSTEMS [id number] / / [id number] documented as of this encounter Visit Diagnoses Diagnosis Need for prophylactic vaccination and inoculation against influenza- Primary documented in this encounter Advance Directives * Full Code (Latest Code Status on File) Date Activated Date Inactivated Comments 02/22/2008 6:21 PM 02/25/2008 5:28 PM * Full Code Date Activated Date Inactivated Comments 02/22/2008 11:42 AM 02/22/2008 6:21 PM * Full Code Date Activated Date Inactivated Comments 01/14/2008 1:06 PM 01/16/2008 7:05 PM Care Teams Hub Inventory Specialist Relationship Specialty Start Date End Date Ruth Brandon MD 200 [place] [address] PCP - General Internal Medicine 04/25/21 documented as of this encounter
--- OUTSIDE RECORDS SUMMARY | 2024-05-20 21:32 | External Medical Summary | Summary of Care ---
Author Name Unknown Organization [facility] Address [address] [facility] [place] [place] [address] Phone [phone] Care Team Providers Care Architectural Technician Name Role Phone Ruth Brandon MD Primary Care Provider + Reason for Visit * Reason Comments Rheum Follow Up Hiroc Follow-up 1 Year Hiroc Encounter Details Date Type Department Care Team (Late st Contact Info) Description 04/20/2024 1:20 PM EDT Office Visit Rheumatology [address] [place] [address] Sergio Coughlin MD [facility] [place] [address] Senile osteoporosis* Allergies Active Allergy Reactions Criticality Noted Date [...] aorta 06/23/2023 Atherosclerosis of coronary artery of [place] heart without angina pectoris 06/23/2023 Atrial thrombus [...] HX OF BREAST MALIGNANCY - ri ght, [id number], 200702/26/2011 10/04/2013 Polyneuropathy in other dise ases [...] mRNA, LNP-s, No Pre serve, 2-Dose Series (itzat) 07/19/2021,11/06/2020,10/11/2020 COVID-19, LNP-s, No Preserve , Sony-sucrose, Ages 12+ (Pfizer) 12/27/2021 COVID-19, MRNA-LNP, 23-24, P F, 30 MCG/0.3 mL, 12 YRS AND ABOVE, IM ([facility]) 07/13/2023 Covid-19, Mrna, Lnp-s, Pf, B ivalent, 30 Mcg, IM, 12 yrs and above (itzat) 07/17/2022 Pneumococcal Conjugate Vacc, 13 Valent (Prevnar) [...] Sign Reading Time Taken Comments Blood Pressure 120/70 04/20/2024 1:14 PM EDT Pulse 61 04/20/2024 1:14 PM EDT Temperature 36.3 C (97.3 F) 04/20/2024 1:14 PM ED T Respiratory Rate 22 04/20/2024 1:14 PM EDT Oxygen Saturation 96% 04/20/2024 1:14 PM EDT Inhaled Oxygen Concentration - - Weight 82.2 kg (181 lb 4.8 oz) 04/20/2024 1:14 P M EDT Height 145 cm (4' 9.09") 04/20/2024 1:14 PM EDT Body Mass Index 39.11 04/20/2024 1:14 PM EDT documented in this encounter Patient Instructions * Patient Instructions* Sergio Coughlin MD - 04/20/2024 1:40 PM EDT RECLAST - Patient Education Zoledronic Acid Solution for injection Zoledronic Acid Solution for injection [Hypercalcemia of Malignancy] Zoledronic Acid Solution for injection [Pagets Disease] Zoledronic Acid Solution for injection What is this medicine? ZOLEDRONIC ACID (BRANDON le dron ik id) lowers the amount of calcium loss from bone. It is used to treat Paget's disease and osteoporosis in women. This medicine may be used for other purposes; ask your health care provider or pharmacist if you have questions. What should I tell my health care provider before I take this medicine? They need to know if you have any of these conditions: aspirin-sensitive asthma dental disease kidney disease low levels of calcium in the blood past surgery on the parathyroid gland or intestines an unusual or allergic reaction to zoledronic acid, other medicines, foods, dyes, or preservatives or trying to get breast-feeding How should I use this medicine? This medicine is for infusion into a vein. It is given by a health health care manager in a hospital or clinic setting. Talk to your video systems engineer regarding the use of this medicine in children. This medicine is not approved for use in children. Overdose: If you think you have taken too much of this medicine contact a poison control center or emergency room at once. NOTE: This medicine is only for you. Do not share this medicine with others. What if I miss a dose? It is important not to miss your dose. Call your doctor or health health care manager if you are unable to keep an appointment. What may interact with this medicine? certain antibiotics given by injection NSAIDs, medicines for pain and inflammation, like ibuprofen or naproxen some diuretics like bumetanide, furosemide teriparatide This list may not describe all possible interactions. Give your health care provider a list of all the medicines, herbs, non-prescription drugs, or dietary supplements you use. Also, tell them if yousmoke, drink alcohol, or use illegal drugs. Some items may interact with your medicine. What should I watch for while using this medicine? Visit your doctor for regular check-ups. You will need important blood and lab work tests while youare taking this medicine. Women should inform their doctor if they wish to become or think they might be . There is a potential for serious side effects to an unborn child. Talk to your health health care manager or pharmacist for more information. It is important to get the right amount of calcium and vitamin D while you are taking this medicine. Talk to your doctor about the foods you eat and the vitamins you take. Some people who take this medicine have severe bone, joint, and/or muscle pain. Tell your doctor ifyou have pain that does not go away or that gets worse. Be sure you are well hydrated prior to receiving this medication. What side effects may I notice from receiving this medicine? Side effects that you should report to your doctor or health health care manager as soon as possible: allergic reactions like skin rash, itching or hives, swelling of the face, lips, or tongue breathing problems changes in vision feeling faint or lightheaded, falls jaw burning, cramping, or pain muscle cramps, stiffness, or weakness trouble passing urine or change in the amount of urine Side effects that usually do not require medical attention (report to your doctor or health health care manager if they continue or are bothersome): bone, joint, or muscle pain fever irritation at site where injected loss of appetite nausea, vomiting stomach upset tired This list may not describe all possible side effects. Call your doctor for medical advice about side effects. You may report side effects to FDA at 4-975-CCZ-1477. Where should I keep my medicine? This drug is given in a hospital or clinic and will not be stored at home. NOTE:This sheet is a summary. It may not cover all possible information. If you have questions about this medicine, talk to your doctor, pharmacist, or health care provider. Copyright 2011 Gold Standard documented in this encounter Progress Notes * Sergio Coughlin MD - 04/20/2024 1:31 PM EDT [facility] ([facility]): follow up Previous Visit Plan from 02/2023 reviewed. Reason for visit: Patient seen today for further follow-up/evaluation of osteoporosis. She had a dose of reclast last April 07 with no issues. Had dosing 2019 and 2020 as well. No falls or fractures. Her pacemaker battery was gong bad and spent 1 week in hospital for a fib and to get her pacemaker replaced. Not using cane or walker most of the time. She is due for blood work. DEXA is also due later this year. Bone Health Summary: Risks: Falls since last [facility] visit: no Personal History of Fx since last [facility] Visit: no Prevention: Exercise : 3 or more times weekly: Yes Nutrition: eats calcium rich foods, Yes Gait: unsteady with walking, No, use of cane/walker, No, Calcium and Vitamin D supplements in adequate doses: Yes ROS: . Constitutional: normal . Ears, nose, throat, mouth: normal . Cardiovascular: normal . Respiratory: normal . Gastrointestinal: normal . Musculoskeletal: normal . Genitourinary: normal Medications: Current Outpatient Medications Medication Sig Dispense Refill [...] mouth in the morning. 100 Tablet 3 Amiodarone HCl 200 MG Oral Tablet (Cordarone) Take 1 Tablet by mouth in the morning. 100 Tablet 3 Levothyroxine Sodium 25 MCG Oral Tablet (Levoxyl) TAKE ONE TABLET BY MOUTH DAILY AT LEAST 30 MINUTES PRIOR TO FIRST MEAL OF THE DAY OR OTHER MEDICATIONS 100 Tablet 2 No current facility-administered medications for this visit. Social History: Social History Tobacco Use Smoking status: Never Smokeless tobacco: Never Vaping Use Vaping status: Never Used Substance Use Topics Alcohol use: Not Currently Comment: Rare glass of wine Drug use: No Physical Exam: BP 120/70 (BP Site: Left Arm, BP Position: Sitting, BP Cuff Size: Regular) | Pulse 61 | Temp 36.3 C (97.3 F) (Skin) | Resp 22 | Ht 1.45 m (4' 9.09") | Wt 82.2 kg (181 lb 4.8 oz) | SpO2 96% | BMI 39.11 kg/m | BSA 1.82 m General: alert, no distress, and well nourished Heart: regular rate & rhythm and no gallops Lungs: clear to auscultation , no rales, wheezes or rhonchi Abdomen: abdomen soft, non-tender, and normal bowel sounds Musculoskeletal Exam: Good muscle strength Mild thoracic kyphosis Assessment: (M81.0) Senile osteoporosis (primary encounter diagnosis) 78 year old female with osteoporosis who is due for Reclast now. Will update labs. Also will get DEXA scheduled for next spring Plan: The following items are ordered or are in progress: 1. Education: Osteoporosis education was provided by the [facility] team (topics included disease process, DXA, calcium/vitamin D, osteoporosis medications - including administration instructions and risks/benefits, weight bearing exercise, fall prevention/safety). The patient was provided with [facility] patient education instruction sheet(s): IV Reclast. 2. Prevention: . Fall Prevention/Safety Education recommended and discussed . Continue calcium rich foods (goal of 3 servings daily) 3. Osteoporosis Medications : Continue 5mg Reclast IV once yearly 4. Bone Density Testing: due 2 year(s) from previous 5. Laboratory: 25-OH Vitamin D calcium creatinine 6. Followup: Return to [facility] clinic in 1 year Sergio Coughlin MD [facility] Team documented in this encounter Nursing Notes * Ludy Mcfarlane LPN - 04/20/2024 1:13 PM EDT Pt identified by name and date of . Chief Complaint Patient presents with Rheum Follow Up Hiroc Follow-up ! Year Hiroc documented in this encounter Plan of Treatment Upcoming Encounters Date Type Department Care Team (Late st Contact Info) Description 05/10/2024 11:40 AM EDT Anticoagulation Pharmacy, [facility] [address] [place] [address] [facility] 132 [place] [address] 05/12/2024 9:30 AM EDT Office Visit Cardiology, [facility] 132 [place] [address] Ramsey Gonsalez MD 132 [place] [address] 10/04/2024 3:00 PM EST Office Visit General Internal Medicine [facility] 200 [place] [address] Ruth Brandon MD 200 [facility] [place] [address] 04/28/2025 1:40 PM EDT Office Visit Rheumatology [place] [address] [facility] [place] [address] Sergio Coughlin MD [address] [place], [place] [address] Pending Results Name Type Priority Associated Diagnoses Date /Time CREATININE Lab Routine Senile osteoporosis 04/20/2024 2:08 PM EDT 25-HYDROXY VITAMIN D Lab Routine Senile osteoporosis 04/20/2024 2:08 PM EDT CALCIUM Lab Routine Senile osteoporosis 04/20/2024 2:08 PM EDT Scheduled Orders Name Type Priority Associated Diagnoses Orde r Schedule CREATININE Lab Routine Senile osteoporosis Expected: 04/20/2024, Expires: 04/20/2025 25-HYDROXY VITAMIN D Lab Routine Senile osteoporosis Expected: 04/20/2024, Expires: 04/20/2025 CALCIUM Lab Routine Senile osteoporosis Expected: 04/20/2024, Expires: 04/20/2025 DEXA SCAN/BONE MINERAL AXIAL Medical Imaging Routine Senile osteoporosis Ordered: 04/20/2024 Scheduled Procedures Name Priority Associated Diagnoses Date/Ti [...] 2024 2022, 04/18, 11/30/2014, Additional history exists GFR 09/22/2024 09/22/2023, 01/16, 10/17/2022, Additional history exists TSH 09/22/2024 09/22/2023, 04/18, 03/18/2021, Additional history exists Adult Wellness Visit 01/11/2025 01/12/2024, 09/17/19 23 Depression Screening 01/11/2025 01/12/2024, 01/12/20 24 Albumin/Creatinine Ratio 05/06/2025 05/06/2022, 01/2017 DTap/Tdap Vaccines (3 - Td or Tdap) 04/29/2026 04/29/2016, 03/02/2006 Pneumococcal Vaccine: 65+ Years Completed 04/04/2015, 09/28/2012, 10/28/2006 Zoster Vaccines Completed 01/15/2019, 02/2018, 04/02/2011 VITAMIN D LEVEL ONCE IN A LIFETIME-USE SMARTSET# [id number] Completed 02/10/2023, 03/18/2021, 02/02/2020, Additional history exists [...] this encounter Medical Devices Implanted Type Area Casing Material Weigher Device Identifier Shelf Expiration Date Model / Serial / Lot Port 6fr Chronoflex [id number] - [id number] Implanted:Qty: 1 on 02/22/2008 at [place] [facility] [place] Left: Chest CR BARD : ACCESS SYSTEMS [id number] / / [id number] documented as of this encounter Visit Diagnoses [...] 1:06 PM 01/16/2008 7:05 PM Care Teams Architectural Technician Relationship Specialty Start Date End Date Ruth Brandon MD [address] [place] [address], [place] [address] PCP - General Internal Medicine 04/25/21 documented as of this encounter
--- OUTSIDE RECORDS SUMMARY | 2024-05-20 21:32 | External Medical Summary ---
Author Name Unknown Address Unknown Organization K0G:[facility] [address] [place] [address] Laboratory Report Ordering Provider Test Date Status ALFREDO CARRERA 05/12/2024 10:23:22 Final Observation Date Value Abnormality Reference (Units ) Status BUN 05/12/2024 10:23:22 17 6-20 (mg/dL) Final Creatinine 05/12/2024 10:23:22 1.1 Above high normal 0.5-1.0 (mg/dL) Final Glomerular filtration rate/1.73 sq M.predicted [Volume Rate/Area] in Serum, Plasma or Blood by Creatinine-based formula (CKD-EPI) 05/12/2024 10:23:22 51 Below low normal >=60 (mL/min) Final eGFR is calculated based on the CKD-EPI 2020 equation. Sodium 05/12/2024 10:23:22 144 135-146 (m mol/L) Final Potassium 05/12/2024 10:23:22 4.1 3.5-5.1 (m mol/L) Final Cl 05/12/2024 10:23:22 103 98-107 (mm ol/L) Final CO2 05/12/2024 10:23:22 30 22-32 (mmo l/L) Final Anion gap 05/12/2024 10:23:22 11 7-15 (mmol /L) Final Glucose 05/12/2024 10:23:22 95 70-120 (mg /dL) Final Albumin 05/12/2024 10:23:22 4.2 3.8-5.0 (g /dL) Final AST (Aspartate aminotransferase) 05/12/2024 10:23:22 28 10-35 (U/L) Final Alk Phos 05/12/2024 10:23:22 66 35-130 (U/ L) Final Bilirubin, Total 05/12/2024 10:23:22 0.3 <=1 .2 (mg/dL) Final Calcium 05/12/2024 10:23:22 9.6 8.4-10.2 ( mg/dL) Final Protein 05/12/2024 10:23:22 7.1 6.0-8.3 (g /dL) Final ALT (Alanine aminotransferase) 05/12/2024 10:23:22 22 10-35 (U/L) Final Performing Location [facility] [address] [facility] [address]
--- OUTSIDE RECORDS SUMMARY | 2024-05-20 21:32 | External Medical Summary | Summary of Care ---
Author Name Unknown Organization [facility] Address [address] [place] [facility] [place] [place] [address] Phone [phone] Care Team Providers Care Community Development Coordinator Name Role Phone Ruth Brandon MD Primary Care Provider + Reason for Visit * Reason Comments Follow Up Encounter Details Date Type Department Care Team (Latest Contact Info) Description 05/12/2024 9:30 AM EDT Office Visit Cardiology, [facility] 132 [facility] [place] [address] Ramsey Gonsalez MD [address] [place] [address] PAF (paroxysmal atrial fibrillation) (HCC)*; Idiopathic cardiomyopathy [...] aorta 06/23/2023 Atherosclerosis of coronary artery of [place] heart without angina pectoris 06/23/2023 Atrial thrombus [...] HX OF BREAST MALIGNANCY - ri ght, [id number], 200702/26/2011 10/04/2013 Polyneuropathy in other dise ases [...] mRNA, LNP-s, No Pre serve, 2-Dose Series (Rep) 07/19/2021,11/06/2020,10/11/2020 COVID-19, LNP-s, No Preserve , Sony-sucrose, Ages 12+ (Rep) 12/27/2021 COVID-19, MRNA-LNP, 23-24, P F, 30 MCG/0.3 mL, 12 YRS AND ABOVE, IM ([facility]) 07/13/2023 COVID-19, MRNA-LNP, 24-25, P R, 30MCG/0.3ML, IM, 12YRS AND ABOVE ([employer]) 04/28/2024 Covid-19, Mrna, Lnp-s, Pf, B ivalent, 30 Mcg, IM, 12 yrs and above (Rep) 07/17/2022 Influenza, Whole Virus 09/15/1985 Pneumococcal Conjugate [...] Cardiology Follow Up Referring Provider: PCP: RUTH BRANDON[address] [address] [phone] Chief Complaint: Follow-up cardiomyopathy, paroxysmal atrial fibrillation [...] 7. BIV ICD implantation August 2017 at [facility] [place] with balloon angioplasty of the left subclavian [...] aorta (HCC) Atherosclerosis of coronary artery of [place] heart without angina pectoris Chronic atrial fibrillation [...] (COVID-19 mRNA Vaccine 12 years and above Rep) Inject into a large muscle. 0.3 mL [...] Return 6 months Ramsey Gonsalez MD Cardiology, [address] [address] documented in this encounter Nursing Notes * Sangita Almaraz CMA - 05/12/2024 9:27 AM EDT Examination Room: 13 Name: Eduarda Bond Date of : (1945). Reason for Visit: 4M f/u Interim Hospitalization(s): [facility] May Problems/Concerns: denies Chest Pain/SOB: denies [facility] [...] Description 05/12/2024 10:40 AM EDT [facility] [place] [address] [place] [address] [place] [address] PAF (paroxysmal atrial fibrillation) (HCC); Idiopathic cardiomyopathy (HCC) 05/17/2024 2:10 PM EDT [facility] [place] [address] [place] [address] [facility] [place] [address] [place] [address] 05/23/2024 2:30 PM EDT Hem/Onc Treatment Hematology/Oncolog y Treatment, [place] [address] [place] [phone] Christin, Chair 8 Hem Onc Scenery [address] [place] [address] 08/02/2024 10:20 AM EST Office Visit Podiatry [facility] 132 [facility] [place] [address] Nicki Gomez, DPM 132 [place] [address] 10/04/2024 3:00 PM EST Office Visit General Internal Medicine [facility] 200 [facility] [place] [address] Ruth Brandon MD 200 [facility] [place] [address] 11/22/2024 2:00 PM EDT Office Visit Cardiology, [facility] 132 [facility] [place] [address] Rashmi Graham PA-C 132 [facility] [place] [address] 04/28/2025 1:40 PM EDT Office Visit Rheumatology [address] [place], [place] [address] Sergio Coughlin MD [address] [place] [address] [place], [place] [address] Pending Results Name Type Priority Associated Diagnoses [...] D LEVEL ONCE IN A LIFETIME-USE SMARTSET# [id number] Completed 04/20/2024, 02/10/2023, 03/18/2021, Additional history exists [...] this encounter Medical Devices Implanted Type Area Solutions Delivery Consultant Device Identifier Shelf Expiration Date Model / Serial / Lot Port 6fr Chronoflex [id number] - [id number] Implanted:Qty: 1 on 02/22/2008 at OR [facility] [place] Left: Chest CR BARD : ACCESS SYSTEMS [id number] / / [id number] documented as of this encounter Visit Diagnoses [...] 1:06 PM 01/16/2008 7:05 PM Care Teams Community Development Coordinator Relationship Specialty Start Date End Date Ruth Brandon MD 200 [place] [address] PCP - General Internal Medicine 04/25/21 documented as of this encounter"
--- OUTSIDE RECORDS SUMMARY | 2024-05-20 21:33 | External Medical Summary ---
Author Name Unknown Address Unknown Organization K0G:[facility]AT[facility] [address] [place] [address] Laboratory Report Ordering Provider Test Date Status RIAY RODRIGUEZ 02/09/2024 11:37:26 Final Therapeutic ranges for non-o perative patients:
Prophylaxsis/treatment of DVT: (Range:2.0-3.0)
Treatment of pulmonary embolism:(Range:2.0-3.0)
Prevention of systemic embolism from:
-tissue heart valves
-acute myocardial infarction
-valvular heart disease
-atrial fibrillation
(Range: 2.0-3.0)
Mechanical prosthetic valves: (Range: 2.5-3.5) Observation Date Value Abnormality Reference (Units ) Status INR in Capillary blood by Coagulation assay 02/09/2024 11:37:26 3.6 (INR) Final Performing Location [facility] [address] [place] [address]
--- OUTSIDE RECORDS SUMMARY | 2024-05-20 21:33 | External Medical Summary | Summary of Care ---
Author Name Unknown Organization [facility] Address [address] [facility] [place] [address] Phone [phone] Care Team Providers Care Sterile Products Processor Name Role Phone Ruth Brandon MD Primary Care Provider + Reason for Visit * Reason Comments Dosage Adjustment In Person (Anticoag Cl inic) Encounter Details Date Type Department Care Team (Latest Contact Info) Description 03/22/2024 11:10 AM EDT Anticoagulation Pharmacy, [facility] 132 [facility] [place] [address] [facility] 132 [facility] [place] [address] Anticoagulation management encounter*; Atrial thrombus; Thrombus due to any device, implant or graft, initial encounter Allergies Active Allergy Reactions Criticality Noted Date Comments Adhesive Tape Other (Please comment) 01/24/2008 Welts, blisters Bee Stings 02/14/2003 Bee Venom Hives 10/17/2019 Iodine Hives 10/17/2019 Ivp Dye 01/10/1998 hives documented as of this encounter (statuses as of 03/22/2024) Medications Medication Sig Dispensed Refills Start Date End Date Status VITAMIN B-6 100 MG PO TABS one tab daily Active CALCIUM 1250 MG PO TABS 2000 mg daily Active ASPIRIN 81 MG PO TABS 1 tab daily Active VITAMIN D 2000 UNITS PO CAPS 1000 units daily Activ e albuterol (VENTOLIN HFA) 108 (90 BASE) MCG/ACT inhalerIndications: Acute bronchitis, antibiotics not indicated Inhale 2 Puffs by mouth every 6 hours as needed for Wheezing. 3 Inhaler 1 12/31/2017 Active acetaminophen (TYLENOL) 500 MG Tablet Take 2 Tablets by mouth 2 times a day as [...] Information Patient taking differently: 2.5 mg Oral, 5 days a week tu, wed, th, sat, sun, Reported on 12/29/2023 Pantoprazole Sodium 40 MG Oral Tablet Delayed Release (Protonix) TAKE ONE TABLET BY MOUTH EVERY DAY 100 Tablet 2 11/24/2023 11/24/19 25 Active Metoprolol Succinate ER 25 MG Oral Tablet [...] as of this encounter (statuses as of 03/22/2024) Active Problems Problem Noted Date Diagnosed Date Nonischemic cardiomyopathy 03/17/2024 Chronic atrial fibrillation 12/29/2023 Atherosclerosis of aorta 06/23/2023 Atherosclerosis of coronary artery of [place] heart without angina pectoris 06/23/2023 Atrial thrombus [...] as of this encounter (statuses as of 03/22/2024) Resolved Problems Problem Noted Date Diagnosed Date [...] HX OF BREAST MALIGNANCY - ri ght, [id number], 200702/26/2011 10/04/2013 Polyneuropathy in other dise ases [...] as of this encounter (statuses as of 03/22/2024) Immunizations Name Administration Dates Next Due COVID-19 mRNA, LNP-s, No Pre serve, 2-Dose Series (Magnasense) 07/19/2021,11/06/2020,10/11/2020 COVID-19, LNP-s, No Preserve , Sony-sucrose, [...] No Preserve, IM 05/31/2016,06/09/2015 06/09/2016 Seasonal Influenza, Split, I IV3, With Preserve, Inj 04/18/2014,04/30/2013,06/05/2012,04/18,05/28/2010,05/24/2008,06/17/20 07,06/27/2006 TD, Preservative Free 04/29/2016 TDAP, [...] as of this encounter Progress Notes * Anais Barrera, Pharmacy Freezer Person - 03/22/2024 11:02 AM EDT Images from the original note were not included. Medication Therapy Disease Management - Anticoagulation Patient: Eduarda Bond | : 1945 Subjective Patient-Reported Symptoms: Patient Findings Positives: Change in activity (Patient states that she is doing more house work), Change in diet/appetite (Patient stated that she has been eating more spinach and has liver that she will be eating) Negatives: Signs/symptoms of thrombosis, Signs/symptoms of bleeding, Change in health, Change in alcohol use, Upcoming invasive procedure, Missed doses, Extra doses, Change in medications, Bruising Objective Current Warfarin Dose As of 03/22/2024 Warfarin maintenance plan: 0 mg every Mon, Wed, Fri; 2.5 mg (5 mg x 0.5) all other days INR Result As of 03/22/2024 INR goal: 2.0-3.0 INR used for dosin.7 (03/22/2024) Assessment & Plan Warfarin Plan As of 03/22/2024 Full warfarin instructions: 03/22: Hold; Otherwise 0 mg every Mon, Wed, Fri; 2.5 mg all other days Next INR check: 04/05/2024 Repeat PT/INR in 2 week(s) Weekly dose: not changed Additional Dosing Information: I spent a total of 10-19 minutes (exact time 10 mins) on the date of service in preparation, delivery, and documentation of the care provided to Eduarda Bond excluding any time spent in the performance of separately billed services or time spent by another provider/QHP. Anais Barrera, Pharmacy Freezer Person Clinical Pharmacist 03/22/2024, 11:03 AM documented in this encounter Plan of Treatment Upcoming Encounters Date Type Department Care Team (Late st Contact Info) Description 04/05/2024 1:50 PM EDT Anticoagulation Pharmacy, [facility] [address] [address] [place] [facility] [address] [place] [address] 04/07/2024 10:40 AM EDT Office Visit Podiatry [facility] 132 [place] [address] Nicki Gomez [place] 132 [place] [address] 04/20/2024 1:20 PM EDT Office Visit Rheumatology [address] [place] [address] Sergio Coughlin MD [facility] [address] 05/12/2024 9:30 AM EDT Office Visit Cardiology, [facility] 132 [place] [address] Ramsey Gonsalez MD [address] [place] [address] 10/04/2024 3:00 PM EST Office Visit General Internal Medicine Shaheen Waller [place] 200 [facility] [place] [address] Ruth Brandon MD 200 [facility] [place] [address] Scheduled Procedures Name Priority Associated Diagnoses Date/Ti me COLONOSCOPY FLEXIBLE PROXIMA L DIAGNOSTIC Recall Special screening for malignant neoplasm of colon Health Maintenance Due Date Last Done Comments Yi's Esophagus Surveilance 04/05/2016 04/05/2013, 04/05/2013, 03/09/2012, Additional history exists COVID-19 Vaccine (2022- season) 2023 07/13/2023, 07/17/2022, 12/27/2021, Additional history exists Influenza Vaccine (FLU shot) (#1) 2024 05/14/2023, 05/06/2022, 04/25/2021, Additional history exists DXA Scan 2024 2022, 04/18, 11/30/2014, Additional history exists GFR 09/22/2024 09/22/2023, 01/16, 10/17/2022, Additional history exists TSH 09/22/2024 09/22/2023, 04/18, 03/18/2021, Additional history exists Adult Wellness Visit 01/11/2025 01/12/2024, 09/17/19 23 Depression Screening 01/11/2025 01/12/2024, 01/12/20 24 Albumin/Creatinine Ratio 05/06/2025 05/06/2022, 01/2017 DTaP,Tdap,and Td Vaccines (3 - Td or Tdap) 04/29/2026 04/29/2016, 03/02/2006 Pneumococcal Vaccine: 65+ Years Completed 04/04/2015, 09/28/2012, 10/28/2006 Zoster Vaccines Completed 01/15/2019, 02/2018, 04/02/2011 VITAMIN D LEVEL ONCE IN A LIFETIME-USE SMARTSET# [id number] Completed 02/10/2023, 03/18/2021, 02/02/2020, Additional history exists [...] this encounter Medical Devices Implanted Type Area Dinkey Brakeman Device Identifier Shelf Expiration Date Model / Serial / Lot Port 6fr Chronoflex [id number] - [id number] Implanted:Qty: 1 on 02/22/2008 at OR [facility] [place] Left: Chest CR BARD : [employer] SYSTEM[employer] [id number] / / [id number] documented as of this encounter Procedures Procedure Name Priority Date/Time Associated Diagnosis Comments INR FINGERSTICK, POINT OF CARE MAHNAZ 03/22/2024 11:11 AM EDT documented in this encounter Results * INR FINGERSTICK, POINT OF CARE (03/22/2024 11:11 AM EDT) Fingerstick INR 4.7 INR 2:05 PM EDT [facility] [address] Blood 03/22/2024 11:1 1 AM EDT 03/22/2024 2:05 PM EDT Narrative [facility] [address] - 03/22/2024 2:05 PM EDT Therapeutic ranges for non-operative patients: Prophylaxsis/treatment of DVT: (Range:2.0-3.0) Treatment of pulmonary embolism:(Range:2.0-3.0) Prevention of systemic embolism from: -tissue heart valves -acute myocardial infarction -valvular heart disease -atrial fibrillation (Range: 2.0-3.0) Mechanical prosthetic valves: (Range: 2.5-3.5) [facility] LAB POINT OF CARE TEST DOCKED DEVICE UNSOLICITED RESULTS [facility] [address] 132 [facility] [place] [address] documented in this encounter Visit Diagnoses Diagnosis [...] 1:06 PM 01/16/2008 7:05 PM Care Teams Sterile Products Processor Relationship Specialty Start Date End Date Ruth Brandon MD 200 [place] [address] PCP - General Internal Medicine 04/25/21 documented as of this encounter"
--- OUTSIDE RECORDS SUMMARY | 2024-05-20 21:33 | External Medical Summary ---
Author Name Unknown Address Unknown Organization [facility] [address] [facility] [address] [place] [address] Laboratory Report Ordering Provider Test Date Status EVETTE VASQUEZ 03/22/2024 11:11:20 Final Therapeutic ranges for non-o perative patients:
Prophylaxsis/treatment of DVT: (Range:2.0-3.0)
Treatment of pulmonary embolism:(Range:2.0-3.0)
Prevention of systemic embolism from:
-tissue heart valves
-acute myocardial infarction
-valvular heart disease
-atrial fibrillation
(Range: 2.0-3.0)
Mechanical prosthetic valves: (Range: 2.5-3.5) Observation Date Value Abnormality Reference (Units ) Status INR in Capillary blood by Coagulation assay 03/22/2024 11:11:20 4.7 (INR) Final Performing Location [facility] [address] [place] [address]
--- OUTSIDE RECORDS SUMMARY | 2024-05-20 21:33 | External Medical Summary | Summary of Care ---
Author Name Unknown Organization [facility] Address [address] [place] [facility] [place] [address] Phone [phone] Care Team Providers Care Public Policy Analyst Name Role Phone Ruth Brandon MD Primary Care Provider + Reason for Visit * Reason Comments Outpatient Testing Encounter Details Date Type Department Care Team (Late st Contact Info) Description 04/20/2024 2:30 PM EDT Laboratory Laboratory, [facility] 132 [facility] [place] [address] YanezCandice broussard [facility] 132 [facility] [place] [id number] Senile osteoporosis Allergies Active Allergy Reactions Criticality Noted Date [...] aorta 06/23/2023 Atherosclerosis of coronary artery of [place] heart without angina pectoris 06/23/2023 Atrial thrombus [...] HX OF BREAST MALIGNANCY - ri ght, [id number], 200702/26/2011 10/04/2013 Polyneuropathy in other dise ases [...] mRNA, LNP-s, No Pre serve, 2-Dose Series (Qwiki) 07/19/2021,11/06/2020,10/11/2020 COVID-19, LNP-s, No Preserve , Sony-sucrose, Ages 12+ (Pfizer) 12/27/2021 COVID-19, MRNA-LNP, 23-24, P F, 30 MCG/0.3 mL, 12 YRS AND ABOVE, IM ([employer]) 07/13/2023 Covid-19, Mrna, Lnp-s, Pf, B ivalent, [...] Description 05/10/2024 11:40 AM EDT [facility] 132 [place] [address] [facility] 132 [place] [address] 05/12/2024 9:30 AM EDT [facility] [place] 132 [place] [address] aRmsey Gonsalez MD 132 [place] [address] 10/04/2024 3:00 PM EST Office Visit General Internal Medicine [facility] Christin [place] 200 [facility] [place] [address] Ruth Brandon MD [address] [place] [address] 04/28/2025 1:40 PM EDT Office Visit Rheumatology [place] [id number] [place] [address] Sergio Coughlin MD [address] [place], [place] [address] Pending Results Name Type Priority Associated Diagnoses Date /Time CREATININE Lab Routine Senile osteoporosis 04/20/2024 2:08 PM EDT 25-HYDROXY VITAMIN D Lab Routine Senile osteoporosis 04/20/2024 2:08 PM EDT CALCIUM Lab Routine Senile osteoporosis 04/20/2024 2:08 PM EDT Scheduled Procedures Name Priority Associated [...] D LEVEL ONCE IN A LIFETIME-USE SMARTSET# [id number] Completed 02/10/2023, 03/18/2021, 02/02/2020, Additional history exists [...] this encounter Medical Devices Implanted Type Area Telegraphic Typewriter Operator Device Identifier Shelf Expiration Date Model / Serial / Lot Port 6fr Chronoflex [id number] - [id number] Implanted:Qty: 1 on 02/22/2008 at OR [facility] [place] Left: Chest CR BARD : [employer]ESS SYSTEM[employer] [id number] / / [id number] documented as of this encounter Visit Diagnoses Diagnosis Senile osteoporosis documented in this encounter Advance Directives * Full Code (Latest Code Status on File) Date Activated Date Inactivated Comments 02/22/2008 6:21 PM 02/25/2008 5:28 PM * Full Code Date Activated Date Inactivated Comments 02/22/2008 11:42 AM 02/22/2008 6:21 PM * Full Code Date Activated Date Inactivated Comments 01/14/2008 1:06 PM 01/16/2008 7:05 PM Care Teams Public Policy Analyst Relationship Specialty Start Date End Date Ruth Brandon MD 200 [place] [address] PCP - General Internal Medicine 04/25/21 documented as of this encounter
--- OUTSIDE RECORDS SUMMARY | 2024-05-20 21:33 | External Medical Summary ---
Author Name Unknown Address Unknown Organization [facility] [address] [place] [address] Laboratory Report Ordering Provider Test Date Status RODNEY RENAE 04/20/2024 14:08:08 Final Observation Date Value Abnormality Reference (Units ) Status Calcium 04/20/2024 14:08:08 9.3 8.4-10.2 ( mg/dL) Final Performing Location LABORATORY [facility] [address] [place] [address]
--- OUTSIDE RECORDS SUMMARY | 2024-05-20 21:33 | External Medical Summary | Summary of Care ---
Author Name Unknown Organization [facility] Address [address] [place] [address] Phone [phone] Care Team Providers Care Clothing Designer Name Role Phone Ruth Brandon MD Primary Care Provider + Encounter Details Date Type Department Care Team (Late st Contact Info) Description 12/30/2023 Telephone General Internal Medicine [facility] [address] [place], [place] [id number] Kristi Boo, RUDI [address] [place] [address] Allergies Active Allergy Reactions Criticality Noted Date Comments Adhesive Tape Other (Please comment) 01/24/2008 Welts, blisters Bee Stings 02/14/2003 Bee Venom Hives 10/17/2019 Iodine Hives 10/17/2019 Ivp Dye 01/10/1998 hives documented as of this encounter (statuses as of 03/03/2024) Medications Medication Sig Dispensed Refills Start Date [...] as needed for Wheezing. 3 Inhaler 1 8 Active acetaminophen (TYLENOL) 500 MG Tablet Take 2 Tablets by mouth 2 times a day as needed (pain). Active Amoxicillin 500 MG Oral Capsule (Amoxil) Take 4 capsules prior to appointment 4 Capsule 6 3 Active Furosemide 20 MG Oral Tablet (Lasix)Indications :Hypothyroidism,Id iopathic cardiomyopathy (HCC),Presence of automatic cardioverter/defib rillator (AICD) TAKE ONE TABLET BY MOUTH EVERY DAY 5 DAYS PER WEEK, WITH AN EXTRA TABLET ON ALTERNATIVE DAYS IF NEEDED 90 Tablet 3 3 Active Triamcinolone Acetonide 0.1 % External Cream (Aristocort)Indica tions:Skin neoplasm,Pruritus Apply to areas of itchy rash on back, arms, and neck twice daily 450 g 5 3 Active Entresto 24-26 MG Oral Tablet (sacubitril-valsar silveira 24-26 mg per tab)Indications:Id iopathic cardiomyopathy (HCC),Chronic systolic congestive heart failure, NYHA class 2 (HCC) TAKE ONE TABLET BY MOUTH TWICE A DAY 200 Tablet 3 3 08/11/20 24 Active Rosuvastatin Calcium 10 MG Oral Tablet (Crestor)Indicatio ns: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) TAKE ONE TABLET BY MOUTH EVERY DAY IN THE MORNING 90 Tablet 3 4 09/07/19 25 Active Warfarin Sodium 5 MG Oral Tablet (Coumadin)Indicati ons:Atrial thrombus TAKE 1 TABLET BY MOUTH EVERY EVENING OR DIRECTED BY ANTICOAGULATION CLINIC 90 Tablet 3 4 10/20/19 25 Active Additional Information Patient taking differently: 2.5 mg Oral, 5 days a week , thu, th, sat, sun, Reported on 12/29/2023 Pantoprazole Sodium 40 MG Oral Tablet Delayed Release (Protonix) TAKE ONE TABLET BY MOUTH EVERY DAY 100 Tablet 2 4 11/24/19 25 Active Metoprolol Succinate ER 25 MG Oral Tablet Extended Release 24 Hour (toPROL XL)Indications:Idi opathic cardiomyopathy (HCC),Chronic systolic congestive heart failure, NYHA class 2 (HCC),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) TAKE THREE TABLETS BY MOUTH EVERY MORNING AND TAKE TWO TABLETS BY MOUTH IN THE EVENING 450 Tablet 3 3 01/01/20 24 Discontinu ed(Refill) Levothyroxine Sodium 25 MCG Oral Tablet (Levoxyl)Indicatio ns:Other specified hypothyroidism TAKE 1 TABLET BY MOUTH DAILY AT LEAST 30 MINUTES PRIOR TO FIRST MEAL OF THE DAY OR OTHER MEDICATIONS 100 Tablet 1 3 01/04/20 24 Discontinu ed(Refill) Amiodarone HCl 200 MG Oral Tablet (Cordarone) Take 1 Tablet by mouth daily with breakfast. 01/01/20 24 Discontinu ed(Refill) documented as of this encounter (statuses as of 03/03/2024) Active Problems Problem Noted Date Diagnosed Date Chronic atrial fibrillation 12/29/2023 Atherosclerosis of aorta 06/23/2023 Atherosclerosis of coronary artery of [place] heart without angina pectoris 06/23/2023 Atrial thrombus [...] as of this encounter (statuses as of 03/03/2024) Resolved Problems Problem Noted Date Diagnosed Date [...] HX OF BREAST MALIGNANCY - ri ght, [id number], 200702/26/2011 10/04/2013 Polyneuropathy in other dise ases [...] as of this encounter (statuses as of 03/03/2024) Immunizations Name Administration Dates Next Due COVID-19 mRNA, LNP-s, No Pre serve, 2-Dose Series (Inspirato) 07/19/2021,11/06/2020,10/11/2020 COVID-19, LNP-s, No Preserve , Sony-sucrose, [...] encounter Miscellaneous Notes * Telephone Encounter - Louis Alfaro OSA - 12/31/2023 10:21 AM EDT Patient already has Dr Espinoza appt on 01/22/24 her wound check is on: 01/01/2024 Status: Zayra Time: 10:00 AM Length: 30 Visit Type: [facility] [[id number]] Reg Status: Verified * Telephone Encounter - Kristi Boo RN - 12/30/2023 3:08 PM EDT Pt needs a f/u with Dr. Espinoza to have her bandage removed and wound checked from her recent procedure. Can you please call pt to schedule? Thank you! documented in this encounter Plan of Treatment Upcoming Encounters Date Type Department Care Team (Late st Contact Info) Description 03/17/2024 2:20 PM EDT Office Visit General Internal Medicine [place], [place] 200 [facility] [place], [place] [address] Ruth Brandon MD 200 [facility] [place] [address] 03/22/2024 11:10 AM EDT Anticoagulation Pharmacy, [facility] 132 [facility] [place] [address] [facility] 132 [facility] [place] [address] 04/07/2024 10:40 AM EDT Office Visit Podiatry [facility] 132 [facility] [place] [address] Nicki Gomez [place] [address] [facility] [place] [address] 04/20/2024 1:20 PM EDT Office Visit Rheumatology [address] [place], [place] [address] Sergio Coughlin MD [address] [place] [address] [place], [place] [address] 05/12/2024 9:30 AM EDT Office Visit Cardiology, [facility] 132 [facility] [place] [address] Ramsey Gonsalez MD [address] [place] [address] Scheduled Procedures Name Priority Associated Diagnoses Date/Ti me COLONOSCOPY FLEXIBLE PROXIMA L DIAGNOSTIC Recall Special screening for malignant neoplasm of colon Health Maintenance Due Date Last Done Comments Yi's Esophagus Surveilance 04/05/2016 04/05/2013, 04/05/2013, 03/09/2012, Additional history exists COVID-19 Vaccine ( season) 2023 07/13/2023, 07/17/2022, 12/27/2021, Additional history exists Influenza Vaccine (FLU shot) (#1) 2024 05/14/2023, 05/06/2022, 04/25/2021, Additional history exists DXA Scan 2024 2022, 04/18, 11/30/2014, Additional history exists GFR 09/22/2024 09/22/2023, 01/16, 10/17/2022, Additional history exists TSH 09/22/2024 09/22/2023, 04/18, 03/18/2021, Additional history exists Depression Screening 01/11/2025 01/12/2024, 01/12/20 24 Albumin/Creatinine Ratio 05/06/2025 05/06/2022, 01/2017 DTaP,Tdap,and Td Vaccines (3 - Td or Tdap) 04/29/2026 04/29/2016, 03/02/2006 Pneumococcal Vaccine: 65+ Years Completed 04/04/2015, 09/28/2012, 10/28/2006 *BASELINE EKG FOR HTN Completed 11/18/2018, 018 Zoster Vaccines Completed 01/15/2019, 02/2018, 04/02/2011 VITAMIN D LEVEL ONCE IN A LIFETIME-USE SMARTSET# [id number] Completed 02/10/2023, 03/18/2021, 02/02/2020, Additional history exists [...] this encounter Medical Devices Implanted Type Area Feller Seam Operator Device Identifier Shelf Expiration Date Model / Serial / Lot Port 6fr Chronoflex [id number] - [id number] Implanted:Qty: 1 on 02/22/2008 [place] [facility] [place] Left: Chest CR BARD : ACCESS SYSTEMS [id number] / / [id number] documented as of this encounter Advance Directives * Full Code (Latest Code Status on File) Date Activated Date Inactivated Comments 02/22/2008 6:21 PM 02/25/2008 5:28 PM * Full Code Date Activated Date Inactivated Comments 02/22/2008 11:42 AM 02/22/2008 6:21 PM * Full Code Date Activated Date Inactivated Comments 01/14/2008 1:06 PM 01/16/2008 7:05 PM Care Teams Clothing Designer Relationship Specialty Start Date End Date Ruth Brandon MD 200 [place] [address] PCP - General Internal Medicine 04/25/21 documented as of this encounter
--- OUTSIDE RECORDS SUMMARY | 2024-05-20 21:33 | External Medical Summary | Summary of Care ---
Author Name Unknown Organization [facility] Address [address] [facility] [address] Phone [phone] Care Team Providers Care Vp Product Name Role Phone Ruth Brandon MD Primary Care Provider + Reason for Visit * Reason Comments Dosage Adjustment In Person (Anticoag Cl inic) Encounter Details Date Type Department Care Team (Latest Contact Info) Description 01/26/2024 11:40 AM EDT Anticoagulation Pharmacy, [facility] 132 [facility] [place] [address] [facility] 132 [facility] [place] [address] Anticoagulation management encounter*; Atrial thrombus; Thrombus due to any device, implant or graft, initial encounter; 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 Allergies Active Allergy Reactions Criticality Noted Date Comments Adhesive Tape Other (Please comment) 01/24/2008 Welts, blisters Bee Stings 02/14/2003 Bee Venom Hives 10/17/2019 Iodine Hives 10/17/2019 Ivp Dye 01/10/1998 hives documented as of this encounter (statuses as of 01/26/2024) Medications Medication Sig Dispensed Refills Start Date [...] as of this encounter (statuses as of 01/26/2024) Active Problems Problem Noted Date Diagnosed Date Chronic atrial fibrillation 12/29/2023 Atherosclerosis of aorta 06/23/2023 Atherosclerosis of coronary artery of [place] heart without angina pectoris 06/23/2023 Atrial thrombus [...] as of this encounter (statuses as of 01/26/2024) Resolved Problems Problem Noted Date Diagnosed Date [...] HX OF BREAST MALIGNANCY - ri ght, [id number], 200702/26/2011 10/04/2013 Polyneuropathy in other dise ases [...] as of this encounter (statuses as of 01/26/2024) Immunizations Name Administration Dates Next Due COVID-19 mRNA, LNP-s, No Pre serve, 2-Dose Series ([employer]) 07/19/2021,11/06/2020,10/11/2020 COVID-19, LNP-s, No Preserve , Sony-sucrose, Ages 12+ (Pfizer) 12/27/2021 COVID-19, MRNA-LNP, 23-24, P F, 30 MCG/0.3 mL, 12 YRS AND ABOVE, IM (PFIZER-Comirnat) 07/13/2023 Covid-19, Mrna, Lnp-s, Pf, B ivalent, [...] Split, I IV3, With Preserve, Inj 04/18/2014,04/30/2013,06/05/2012,04/18,05/28/2010,05/24/2008,06/17/20 07,06/27/2006,07/22/2005,09/03/2004,1 10/04/2002,07/21/2002 TD, Preservative Free 04/29/2016 [...] money to get more. Never true 09/17/2022 Sex and Gender Information Value Date Recorded Sex Assigned at Female 02/28/2021 1:20 PM EDT Gender Identity Female 02/28/2021 1:20 PM EDT Sexual Orientation Straight 02/28/2021 1: 20 PM EDT Job Start Date Occupation Industry Not on file Not on file Not on file documented as of this encounter Progress Notes * Tete Guerrero RPh - 01/26/2024 11:34 AM EDT Images from the original note [...] Bruising Objective Current Warfarin Dose As of 01/26/2024 Warfarin maintenance plan: 0 mg every Mon, Fri; 2.5 mg (5 mg x 0.5) all other days INR Result As of 01/26/2024 INR goal: 2.0-3.0 INR used for dosin.2 (01/26/2024) Assessment & Plan Warfarin Plan As of 01/26/2024 Full warfarin instructions: 01/25: Hold; Otherwise 0 mg every Mon, Fri; 2.5 mg all other days Next INR check: 02/09/2024 Repeat PT/INR in 2 week(s) Weekly dose: not changed Additional Dosing Information: Description Fax results to [phone] for cataract surgery Tete Guerrero RPh Clinical Pharmacist 01/26/2024, 11:51 AM documented in this encounter Plan of Treatment Upcoming Encounters Date Type Department Care Team (Late st Contact Info) Description 02/09/2024 11:40 AM EDT Anticoagulation Pharmacy, [facility] 132 [facility] [place] [address] [facility] [place] [address] 03/08/2024 1:20 PM EDT Office Visit Rheumatology [facility] [address] [facility] [place] [address] Sergio Coughlin MD [address] [facility] [place] [address] 03/17/2024 2:20 PM EDT Office Visit General Internal Medicine [facility] 200 [facility] [place] [address] Ruth Brandon MD 200 [facility] [place] [address] 04/07/2024 10:40 AM EDT Office Visit Podiatry [facility] 132 [facility] [place] [address] Nicki Gomez DPM [address] [place] [address] 05/12/2024 9:30 AM EDT Office Visit Cardiology, [facility] [address] [place] [address] Ramsey Gonsalez MD [address] [place] [address] Scheduled Procedures Name Priority Associated Diagnoses Date/Ti me COLONOSCOPY FLEXIBLE PROXIMA L DIAGNOSTIC Recall Special screening for malignant neoplasm of colon Health Maintenance Due Date Last Done Comments Yi's Esophagus Surveilance 04/05/2016 04/05/2013, 04/05/2013, 03/09/2012, Additional history exists COVID-19 Vaccine ( season) 2023 07/13/2023, 07/17/2022, 12/27/2021, Additional history exists DXA Scan 2024 2022, [...] D LEVEL ONCE IN A LIFETIME-USE SMARTSET# [id number] Completed 02/10/2023, 03/18/2021, 02/02/2020, Additional history exists Influenza Vaccine (FLU shot) Completed , 05/06/2022, 04/25/2021, Additional history exists GARDASIL-HPV IMMUNIZATION SERIES Aged Out No longer eligible based on patient's age to complete this topic Hepatitis B Aged Out No longer eligi ble based on patient's age to complete this topic MENINGOCOCCAL (MENACTRA/MENVEO) Aged Out No longer eligible based on patient's age to complete this topic documented as of this encounter Medical Devices Implanted Type Area Core Manager Device Identifier Shelf Expiration Date Model / Serial / Lot Port 6fr Chronoflex [id number] - [id number] Implanted:Qty: 1 on 02/22/2008 at [place] [facility] Left: Chest CR BARD : [employer] [id number] / / [id number] documented as of this encounter Procedures Procedure Name Priority Date/Time Associated Diagnosis Comments INR FINGERSTICK, POINT OF CARE STAT 01/26/2024 11:38 AM EDT Atrial thrombus Thrombus due to any device, implant or graft, initial encounter Anticoagulation management encounter [facility] current use of anticoagulant therapy documented in this encounter Results * INR FINGERSTICK, POINT OF CARE (01/26/2024 11:38 AM EDT) Fingerstick INR 3.2 INR 11:45 AM EDT [facility] Blood 01/26/2024 11:3 8 AM EDT 01/26/2024 11:45 AM EDT Narrative [facility] - 01/26/2024 11:45 AM EDT Therapeutic ranges for non-operative patients: Prophylaxsis/treatment of DVT: (Range:2.0-3.0) Treatment of pulmonary embolism:(Range:2.0-3.0) Prevention of systemic embolism from: -tissue heart valves -acute myocardial infarction -valvular heart disease -atrial fibrillation (Range: 2.0-3.0) Mechanical prosthetic valves: (Range: 2.5-3.5) Tete Guerrero [facility] POINT OF C ARE TEST DOCKED DEVICE UNSOLICITED RESULTS [facility] 57-10 [address] [place] [address] documented in this encounter Visit Diagnoses Diagnosis Anticoagulation management encounter- Primary Encounter for therapeutic drug monitoring Atrial thrombus Other ill-defined heart disease Thrombus due to any device, implant or graft, initial encounter 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
--- OUTSIDE RECORDS SUMMARY | 2024-05-20 21:33 | External Medical Summary | Summary of Care ---
Author Name Unknown Organization [facility] Address [address] [facility] [address] Phone [phone] Care Team Providers Care Legislative Assistant Name Role Phone Ruth Brandon MD Primary Care Provider + Reason for Visit * Reason Comments Dosage Adjustment In Person (Anticoag Cl inic) Encounter Details Date Type Department Care Team (Latest Contact Info) Description 02/23/2024 11:30 AM EDT Anticoagulation Pharmacy, [facility] 132 [facility] [place] [address] [facility] 132 [facility] [place] [address] Anticoagulation management encounter*; Atrial thrombus; Thrombus due to any device, implant or graft, initial encounter Allergies Active Allergy Reactions Criticality Noted Date Comments Adhesive Tape Other (Please comment) 01/24/2008 Welts, blisters Bee Stings 02/14/2003 Bee Venom Hives 10/17/2019 Iodine Hives 10/17/2019 Ivp Dye 01/10/1998 hives documented as of this encounter (statuses as of 02/23/2024) Medications Medication Sig Dispensed Refills Start Date [...] as of this encounter (statuses as of 02/23/2024) Active Problems Problem Noted Date Diagnosed Date Chronic atrial fibrillation 12/29/2023 Atherosclerosis of aorta 06/23/2023 Atherosclerosis of coronary artery of [place] heart without angina pectoris 06/23/2023 Atrial thrombus [...] as of this encounter (statuses as of 02/23/2024) Resolved Problems Problem Noted Date Diagnosed Date [...] HX OF BREAST MALIGNANCY - ri ght, [id number], 200702/26/2011 10/04/2013 Polyneuropathy in other dise ases [...] as of this encounter (statuses as of 02/23/2024) Immunizations Name Administration Dates Next Due COVID-19 mRNA, LNP-s, No Pre serve, 2-Dose Series ([employer]) 07/19/2021,11/06/2020,10/11/2020 COVID-19, LNP-s, No Preserve , Sony-sucrose, [...] Progress Notes * Tete Guerrero RPh - 02/23/2024 11:26 AM EDT Medication Therapy Disease Management - Anticoagulation Patient: Eduarda Bond | : 1945 Subjective Patient-Reported Symptoms: Patient Findings Negatives: Signs/symptoms of thrombosis, Signs/symptoms of bleeding, Change in health, Change in alcohol use, Change in activity, Upcoming invasive procedure, Missed doses, Extra doses, Change in medications, Change in diet/appetite, Bruising Objective Current Warfarin Dose As of 02/23/2024 Warfarin maintenance plan: 0 mg every Mon, Wed, Fri; 2.5 mg (5 mg x 0.5) all other days INR Result As of 02/23/2024 INR goal: 2.0-3.0 INR used for dosin.7 (02/23/2024) Assessment & Plan Warfarin Plan As of 02/23/2024 Full warfarin instructions: 0 mg every Mon, Wed, Fri; 2.5 mg all other days No change documented: Tete Guerrero RPh Next INR check: 03/22/2024 Repeat PT/INR in 4 week(s) Weekly dose: not changed Additional Dosing Information: Tete Guerrero [facility] Clinical Pharmacist 02/23/2024, 11:40 AM documented in this encounter Plan of Treatment Upcoming Encounters Date Type Department Care Team (Late st Contact Info) Description 03/17/2024 2:20 PM EDT Office Visit [facility] [address] [place] [address] Ruth Brandon MD [address] [place] [address] 03/22/2024 11:10 AM EDT Anticoagulation Pharmacy, [facility] 132 [facility] [place] [address] [facility] 132 [facility] [place] [address] 04/07/2024 10:40 AM EDT Office Visit Podiatry [facility] 132 [facility] [place] [address] Nick[facility] Gomez DPM [facility] [place] [address] 04/20/2024 1:20 PM EDT Office Visit Rheumatology [address] [place] [address] Sergio Coughlin MD [address] [place] [address] [place] [address] 05/12/2024 9:30 AM EDT Office Visit Cardiology, [facility] 132 [facility] [place] [address] Ramsey [facility] [place] [address] Scheduled Orders Name Type Priority Associated Diagnoses Orde r Schedule PT INR Lab Routine Atrial thrombus Thrombus due to any device, implant or graft, initial encounter Anticoagulation management encounter 26 Occurrences starting 02/23/2024 until 02/22/2025 INR FINGERSTICK, POINT OF CARE Point of Care Testing - Unsolicited Results STAT Atrial thrombus Thrombus due to any device, implant or graft, initial encounter Anticoagulation management encounter Every 2 Weeks for 26 Occurrences starting 02/23/2024 until 02/22/2025, 1 completed Scheduled Procedures Name Priority Associated Diagnoses Date/Ti [...] D LEVEL ONCE IN A LIFETIME-USE SMARTSET# [id number] Completed 02/10/2023, 03/18/2021, 02/02/2020, Additional history exists [...] this encounter Medical Devices Implanted Type Area Animal Sitter Device Identifier Shelf Expiration Date Model / Serial / Lot Port 6fr Chronoflex [id number] - [id number] Implanted:Qty: 1 on 02/22/2008 at [facility] Left: Chest CR BARD : [employer] SYSTEM[employer] [id number] / / [id number] documented as of this encounter Procedures Procedure Name Priority Date/Time Associated Diagnosis Comments INR FINGERSTICK, POINT OF CARE STAT 02/23/2024 11:29 AM EDT Atrial thrombus Thrombus due to any device, implant or graft, initial encounter Anticoagulation management encounter documented in this encounter Results * INR FINGERSTICK, POINT OF CARE (02/23/2024 11:29 AM EDT) Fingerstick INR 2.7 INR 11:35 AM EDT [facility] Blood 02/23/2024 11:2 9 AM EDT 02/23/2024 11:35 AM EDT Narrative [facility] - 02/23/2024 11:35 AM EDT Therapeutic ranges for non-operative patients: Prophylaxsis/treatment of DVT: (Range:2.0-3.0) Treatment of pulmonary embolism:(Range:2.0-3.0) Prevention of systemic embolism from: -tissue heart valves -acute myocardial infarction -valvular heart disease -atrial fibrillation (Range: 2.0-3.0) Mechanical prosthetic valves: (Range: 2.5-3.5) Tete Guerrero [facility] POINT OF C ARE TEST DOCKED DEVICE UNSOLICITED RESULTS [facility] [facility] [place] [address] documented in this encounter Visit Diagnoses Diagnosis [...] 1:06 PM 01/16/2008 7:05 PM Care Teams Legislative Assistant Relationship Specialty Start Date End Date Ruth Brandon MD 200 [place] [address] PCP - General Internal Medicine 04/25/21 documented as of this encounter"
--- OUTSIDE RECORDS SUMMARY | 2024-05-20 21:33 | External Medical Summary | Summary of Care ---
Author Name Unknown Organization [facility] Address [address] [place] [address] Phone [phone] Care Team Providers Care Mental Health Unit Lead Psychologist Name Role Phone Ruth Brandon MD Primary Care Provider + Reason for Visit * Reason Comments Hospital Follow-Up Hospital Discharge - Encounter Details Date Type Department Care Team (Latest Contact Info) Description 03/17/2024 2:20 PM EDT Office Visit General Internal Medicine [facility] [place] [address] [facility] [place] [id number] Ruth Brandon MD [address] [facility] [place] [address] Chronic systolic congestive heart failure, NYHA class 2 (HCC)*; Chronic atrial fibrillation (HCC); Atherosclerosis of wrangell coronary artery of wrangell heart without angina pectoris; Gastroesophageal reflux disease without esophagitis; Presence of automatic cardioverter/defibrilla tor (AICD); Essential hypertension with goal blood pressure less than 130/80; Idiopathic cardiomyopathy (HCC); Acquired hypothyroidism; Nonischemic cardiomyopathy (HCC); Atherosclerosis of wrangell coronary artery without angina pectoris, unspecified whether wrangell or transplanted heart Allergies Active Allergy Reactions Criticality Noted Date Comments Adhesive Tape Other (Please comment) 01/24/2008 Welts, blisters Bee Stings 02/14/2003 Bee Venom Hives 10/17/2019 Iodine Hives 10/17/2019 Ivp Dye 01/10/1998 hives documented as of this encounter (statuses as of 03/17/2024) Medications Medication Sig Dispensed Refills Start Date [...] Oral, 5 days a week , thu, thur, sat, sun, Reported on 12/29/2023 Pantoprazole Sodium 40 MG Oral Tablet Delayed Release (Protonix) TAKE ONE TABLET BY MOUTH EVERY DAY 100 Tablet 2 11/24/2023 11/24/19 Active Metoprolol Succinate ER 25 MG Oral [...] as of this encounter (statuses as of 03/17/2024) Active Problems Problem Noted Date Diagnosed Date Nonischemic cardiomyopathy 03/17/2024 Chronic atrial fibrillation 12/29/2023 Atherosclerosis of aorta 06/23/2023 Atherosclerosis of coronary artery of wrangell heart without angina pectoris 06/23/2023 Atrial thrombus [...] as of this encounter (statuses as of 03/17/2024) Resolved Problems Problem Noted Date Diagnosed Date [...] HX OF BREAST MALIGNANCY - ri ght, [id number], 200702/26/2011 10/04/2013 Polyneuropathy in other dise ases [...] as of this encounter (statuses as of 03/17/2024) Immunizations Name Administration Dates Next Due COVID-19 mRNA, LNP-s, No Pre serve, 2-Dose Series ([employer]) 07/19/2021,11/06/2020,10/11/2020 COVID-19, LNP-s, No Preserve , Sony-sucrose, Ages 12+ (Pfizer) 12/27/2021 COVID-19, MRNA-LNP, 23-24, P F, 30 MCG/0.3 mL, 12 YRS AND ABOVE, IM ([employer]) 07/13/2023 Covid-19, Mrna, Lnp-s, Pf, B ivalent, [...] Reading Time Taken Comments Blood Pressure 120/70 03/17/2024 2:27 PM EDT Pulse 72 03/17/2024 2:27 PM EDT Temperature 36.5 C (97.7 F) 03/17/2024 2:27 PM ED T Respiratory Rate 16 03/17/2024 2:27 PM EDT Oxygen Saturation - - Inhaled Oxygen Concentration - - Weight 78.7 kg (173 lb 9.6 oz) 03/17/2024 2:27 P M EDT Height 142.2 cm (4' 8") 03/17/2024 2:27 PM EDT Body Mass Index 38.92 03/17/2024 2:27 PM EDT documented in this encounter Progress Notes * Ruth Brandon MD - 03/17/2024 2:39 PM EDT HPI: Eduarda Bond is a 78 year old female with a history of nonischemic cardiomyopathy, biventricular pacer/ICD placement in 2018 at [facility], chronic systolic congestive heart failure, chronic LBBB, history of pacemaker lead thrombus, now on chronic anticoagulation, hypothyroidism, history of prior breast cancer, status post mastectomy, chemo and radiation, history of GERD, hypothyroidism who presents with: Chief Complaint Patient presents with Hospital Follow-Up Hospital Discharge 12/25/23- Patient is here for the recheck. Chart reviewed with the patient including current meds, last labs and HM. No acute event since we saw patient last time including no recent fall or injuries. Pt is here for the hospital follow up. Chart reviewed from the hospital including admission note, Hand P, consult notes, labs, EKG, imaging and discharge note including discharge meds. Patient states she is feeling better since went back home. Pt was admitted to the hospital on 12/21/23 and was discharged on 12/25/23. Patient was taken to the hospital as she had worsening chest pain and shortness of breath. Admission Diagnosis : Atrial fibrillation with rapid ventricular response, ICD placement, right atrial thrombus, acute on chronic systolic heart failure. Pt has been followed up by special education case manager and specialists. New medications at the discharge were Amiodarone 200 mg tablet 1 pill once a day and metoprolol succinate 25 mg tablet 1 pill once a day. Patient was advised to follow up with Cardiology and also with us which she never did until now. Patient had labs, EKG, echo, CT head. CT head showed no acute changes. Patient had workup done in the ER which showed atrial fibrillation with a rapid ventricular rate, initial troponins were negative. Cardiology was consulted and was started on amiodarone drip which was switched to oral amiodarone 200 mg daily along with my metoprolol succinate 25 mg daily. Pacemakerreprogramming was done to increase the atrial sensing. Status post generator exchange with Dr. Espinoza on 12/23/2023. Patient was advised to continue warfarin and follow up with coag Clinic and also Cardiology general and also EP Dr. Espinoza. Pt was seen by ophthalmology s/p cataract surgery and was given red eyes. Pt was given systane. Discussed f/u with ophthalmology, get thyroid checked while on amiodarone and also watch any pulmonary s/s. Follows with cardiology. Discussed upper endoscopy looking at hx of Yi's. Discussed checking with cardiology looking at her history and being on warfarin. Patient Active Problem List Diagnosis Hypothyroidism Mitral [...] aorta (HCC) Atherosclerosis of coronary artery of wrangell heart without angina pectoris Chronic atrial fibrillation (HCC) Nonischemic cardiomyopathy (HCC) Current Outpatient Medications Medication Sig Dispense Refill VITAMIN B-6 100 MG PO TABS one tab daily CALCIUM 1250 MG PO TABS 2000 mg daily ASPIRIN 81 MG PO TABS 1 tab daily VITAMIN D 2000 UNITS PO CAPS 1000 units daily albuterol (VENTOLIN HFA) 108 (90 BASE) MCG/ACT inhaler Inhale 2 Puffs by mouth every 6 hours as needed for Wheezing. 3 Inhaler 1 acetaminophen (TYLENOL) 500 MG Tablet Take 2 [...] taking differently: Take 0.5 Tablets by mouth. 5 days a week tu, wed, th, sat, sun) 90 Tablet 3 Pantoprazole Sodium 40 MG Oral Tablet Delayed Release (Protonix) TAKE ONE TABLET BY MOUTH EVERY [id number] Tablet 2 Metoprolol Succinate ER 25 MG [...] No current facility-administered medications for this visit. The patient's medication list was reviewed and updated as needed. Review of patient's allergies indicates: Allergen Reactions Adhesive Tape Other (Please comment) Welts, blisters Bee Stings Bee Venom Hives Iodine Hives Ivp Dye hives Past Medical History: Diagnosis Date Yi's esophagus 03/09/2012 UPPER GI ENDOSCOPY DIAGNOSTIC performed by Uma Lin DO at [facility], path showsshort segment Barretts esophagitis repeat in 1 year Barretts esophagus 04/05/2013 UPPER GI ENDOSCOPY DIAGNOSTIC performed by Uma iLn DO at [facility], inflammation consistent with long segment barretts, repeat egd in 3 years Breast cancer (HCC) 01/14/2008 right breast with mastectomy Chronic atrial fibrillation (HCC) 12/29/2023 HTN, goal below 140/90 Hypothyroidism Left bundle branch block Malignant neoplasm of lower outer quadrant of female breast 12/13/2007 1 of 26 positive lymph nodes Menopause Mitral valve disorder MVP Presence of automatic cardioverter/defibrillator (AICD) 09/03/2017 Reflux esophagitis Social History Socioeconomic History Marital status: Spouse name: Trace Number of children: 4 Occupational History 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 Social Determinants of Health Food Insecurity: No Food Insecurity (09/17/2022) Hunger Vital Sign Worried About Running Out of Food in the Last Year: Never true Ran Out of Food in the Last Year: Never true Social Connections Family History Problem Relation Name Age of Onset Breast Cancer Sister Heart Disorder Father MT Heart Disorder Sister MVP Hypertension Mother Cancer Brother thyroid Cancer Brother brain Other (skin disorders) Brother denies melanoma or other skin disorders All system negative except as per hpi. OBJECTIVE: BP 120/70 | Pulse 72 | Temp 36.5 C (97.7 F) | Resp 16 | Ht 1.422 m (4' 8") | Wt 78.7 kg (173 lb9.6 oz) | BMI 38.92 kg/m | BSA 1.76 m PHYSICAL EXAM: HEENT: PERRLA, EOMI, anicteric sclera, b/l tympanic membrane is pearly white, no erythema, no pharyngeal erythema, no lymphadenopathy, neck supple CVS: RRR, no murmurs, rubs or gallops, s1 s 2normal. RESP: clear to auscultation, no wheezing or crackles ABD: soft, NT/ND EXT: no edema, cyanosis, peripheral pulses palpable bilaterally No large joint swelling, no redness, range of motion normal. Skin normal. Gait normal. Mood stable No focal weakness ASSESSMENT AND PLAN: Chronic systolic congestive heart failure, NYHA class 2 (HCC) (Primary) Compensated with current dose of Lasix. Chronic atrial fibrillation (HCC) Stable on current dose of amiodarone, metoprolol and warfarin. Follows with Cardiology and EP. Atherosclerosis of wrangell coronary artery of wrangell heart without angina pectoris Gastroesophageal reflux disease without esophagitis Advised pt to avoid caffeine, fried fatty foods, choclates, peppermints, smoking and alcohol. Exercise and weight loss emphasized. Eat dinner 3 hours prior to bed time. Presence of automatic cardioverter/defibrillator (AICD) Essential hypertension with goal blood pressure less than 130/80 Idiopathic cardiomyopathy (HCC) Acquired hypothyroidism Continue current dose of levothyroxine. Nonischemic cardiomyopathy (HCC) Status post ICD placement. Atherosclerosis of wrangell coronary artery without angina pectoris, unspecified whether wrangell or transplanted heart Stable. Continue all the current medications. uRth Brandon MD documented in this encounter Nursing Notes * Diana Ambrocio LPN - 03/17/2024 2:27 PM EDT The patient has been properly identified by confirmation of name and date of . Chief Complaint Patient presents with Hospital Follow-Up Hospital Discharge 12/25/23- documented in this encounter Plan of Treatment Upcoming Encounters Date Type Department Care Team (Late st Contact Info) Description 03/22/2024 11:10 AM EDT Anticoagulation Pharmacy, [facility] [address] [place] [id number] [facility] [address] [facility] [place] [address] 04/07/2024 10:40 AM EDT Office Visit Podiatry [facility] [address] [facility] [place] [address] Nicki Gomez DPM [address] [place] [address] 04/20/2024 1:20 PM EDT Office Visit Rheumatology [address] [place] [address] Sergio Coughlin MD [address] [place] [address] [place] [address] 05/12/2024 9:30 AM EDT Office Visit Cardiology, [facility] [address] [facility] [place] [address] Ramsey Gonsalez MD [address] [place] [address] 10/04/2024 3:00 PM EST Office Visit General Internal Medicine [facility] [place] [address] [place] [address] Ruth Brandon MD [address] [facility] [place] [id number] Scheduled Procedures Name Priority Associated Diagnoses Date/Ti [...] D LEVEL ONCE IN A LIFETIME-USE SMARTSET# [id number] Completed 02/10/2023, 03/18/2021, 02/02/2020, Additional history exists [...] this encounter Medical Devices Implanted Type Area Simulation Analyst Device Identifier Shelf Expiration Date Model / Serial / Lot Port 6fr Chronoflex [id number] - [id number] Implanted:Qty: 1 on 02/22/2008 at [facility] Left: Chest CR BARD : [employer] [id number] / / [id number] documented as of this encounter Visit Diagnoses Diagnosis Chronic systolic congestive heart failure, NYHA class 2 (HCC)- Primary Chronic systolic heart failure Chronic atrial fibrillation (HCC) Atrial fibrillation Atherosclerosis of wrangell coronary artery of wrangell heart without angina pectoris Gastroesophageal reflux disease without esophagitis Esophageal reflux Presence of automatic cardioverter/defibrillator (AICD) Automatic implantable cardiac defibrillator in situ Essential hypertension with goal blood pressure less than 130/80 Idiopathic cardiomyopathy (HCC) Other primary cardiomyopathies Acquired hypothyroidism Unspecified hypothyroidism Nonischemic cardiomyopathy (HCC) Other primary cardiomyopathies Atherosclerosis of wrangell coronary artery without angina pectoris, unspecified whether wrangell or transplanted heart documented in this encounter Advance Directives * Full Code (Latest Code Status on File) Date Activated Date Inactivated Comments 02/22/2008 6:21 PM 02/25/2008 5:28 PM * Full Code Date Activated Date Inactivated Comments 02/22/2008 11:42 AM 02/22/2008 6:21 PM * Full Code Date Activated Date Inactivated Comments 01/14/2008 1:06 PM 01/16/2008 7:05 PM Care Teams Mental Health Unit Lead Psychologist Relationship Specialty Start Date End Date Ruth Brandon MD [address] [place] [address] PCP - General Internal Medicine 04/25/21 documented as of this encounter
--- OUTSIDE RECORDS SUMMARY | 2024-05-20 21:33 | External Medical Summary | Summary of Care ---
Author Name Unknown Organization [facility] Address [address] [place] [address] Phone [phone] Care Team Providers Care Camera Repairman Name Role Phone Ruth Brandon MD Primary Care Provider + Reason for Visit * Reason Comments Cold Symptoms Encounter Details Date Type Department Care Team (Late st Contact Info) Description 02/29/2024 11:40 AM EDT Office Visit General Internal Medicine [facility] [address] [facility] [place] [address] Zak Paul, [address] [address] Acute non-recurrent frontal sinusitis* Allergies Active Allergy Reactions Criticality Noted Date Comments Adhesive Tape Other (Please comment) 01/24/2008 Welts, blisters Bee Stings 02/14/2003 Bee Venom Hives 10/17/2019 Iodine Hives 10/17/2019 Ivp Dye 01/10/1998 hives documented as of this encounter (statuses as of 02/29/2024) Medications Medication Sig Dispensed Refills Start Date [...] mg Oral, 5 days a week , wed, th, sat, sun, Reported on 12/29/2023 [...] OTHER MEDICATIONS 100 Tablet 2 01/04/2024 Active Cefuroxime Axetil 500 MG Oral Tablet (Ceftin)Indications :Acute non-recurrent frontal sinusitis Take 1 Tablet by mouth in the morning and 1 Tablet before bedtime. Do all this for 10 days. 20 Tablet 02/29/2024 03/10/20 24 Active documented as of this encounter (statuses as of 02/29/2024) Active Problems Problem Noted Date Diagnosed Date Chronic atrial fibrillation 12/29/2023 Atherosclerosis of aorta 06/23/2023 Atherosclerosis of coronary artery of [place] heart without angina pectoris 06/23/2023 Atrial thrombus [...] as of this encounter (statuses as of 02/29/2024) Resolved Problems Problem Noted Date Diagnosed Date [...] HX OF BREAST MALIGNANCY - ri ght, [id number], 200702/26/2011 10/04/2013 Polyneuropathy in other dise ases [...] as of this encounter (statuses as of 02/29/2024) Immunizations Name Administration Dates Next Due COVID-19 mRNA, LNP-s, No Pre serve, 2-Dose Series ([employer]) 07/19/2021,11/06/2020,10/11/2020 COVID-19, LNP-s, No Preserve , Sony-sucrose, Ages 12+ (Pfizer) 12/27/2021 COVID-19, MRNA-LNP, 23-24, P F, 30 MCG/0.3 mL, 12 YRS AND ABOVE, IM ([facility]) 07/13/2023 Covid-19, Mrna, Lnp-s, Pf, B ivalent, 30 Mcg, IM, 12 yrs and above (Addepar) 07/17/2022 Pneumococcal Conjugate Vacc, 13 Valent (Prevnar) [...] Sign Reading Time Taken Comments Blood Pressure 104/70 02/29/2024 11:27 AM EDT Pulse 90 02/29/2024 11:27 AM EDT Temperature 37.7 C (99.9 F) 02/29/2024 11:27 AM E DT Respiratory Rate 16 02/29/2024 11:27 AM EDT Oxygen Saturation 95% 02/29/2024 11:27 AM EDT Inhaled Oxygen Concentration - - Weight 80.8 kg (178 lb 1.6 oz) 02/29/2024 11:27 AM EDT Height 142.2 cm (4' 8") 02/29/2024 11:27 AM EDT Body Mass Index 39.93 02/29/2024 11:27 AM EDT documented in this encounter Progress Notes * Zak Paul, - 02/29/2024 11:35 AM EDT Subjective Eduarda Bond is a 78 year old female. Chief Complaint Patient presents with Cold Symptoms HPI: Patient presents to office for evaluation of upper respiratory symptoms. Patient states symptoms started about a week ago. Her is having similar issues. Notes sinus pain/pressure. Especially across her far head. Increased nasal discharge. Postnasal drip that sometimes causes cough productive of yellow/green mucus. No loss of smell/taste. No dyspnea, orthopnea, wheezing. No increased swelling in her legs. No GI symptoms noted. PMH: Patient Active Problem List Diagnosis Hypothyroidism Mitral [...] aorta (HCC) Atherosclerosis of coronary artery of [place] heart without angina pectoris Chronic atrial fibrillation (HCC) Current Outpatient Medications Medication Sig Dispense [...] Tablets by mouth. 5 days a week , thu, , thu, sun) 90 Tablet 3 Pantoprazole Sodium 40 MG Oral Tablet Delayed Release (Protonix) TAKE ONE TABLET BY MOUTH EVERY [id number] Tablet 2 Metoprolol Succinate ER 25 MG [...] No current facility-administered medications for this visit. Past Medical History: Diagnosis Date Yi's esophagus 03/09/2012 UPPER GI ENDOSCOPY DIAGNOSTIC performed by Uma Lin DO at ENDOSCOPY [facility], path showsshort segment Barretts esophagitis repeat in 1 year Barretts esophagus 04/05/2013 UPPER GI ENDOSCOPY DIAGNOSTIC performed by Uma Lin DO at ENDOSCOPY [facility], inflammation consistent with long segment barretts, repeat egd in 3 years Breast cancer (HCC) 01/14/2008 right breast with mastectomy Chronic atrial fibrillation (HCC) 12/29/2023 HTN, goal below 140/90 Hypothyroidism Left bundle branch block Malignant neoplasm of lower outer quadrant of female breast 12/13/2007 1 of 26 positive lymph nodes Menopause Mitral valve disorder MVP Presence of automatic cardioverter/defibrillator (AICD) 09/03/2017 Reflux esophagitis Past Surgical History: Procedure Laterality Date BX LYMPH NODE DEEP AXIL 01/14/08 BIOPSY LYMPH NODE DEEP AXILLARY OPEN performed [place] SRIKANTH NÚ[place]EZ [place] [facility] [place]HETERIZE LEFT HEART THRU SKIN 06/2000 Cardiac Catheterization, Left Heart COLONOSCOPY 1989 - COLONOSCOPY, DIAGNOSTIC (RECTUM) 01/30/09 repeat 10 yrs COLONOSCOPY, DIAGNOSTIC (RECTUM) 11/25/2018 diverticulosis, repeat 10 yrs/[facility] DILATION AND CURETTAGE (D&C) D&C Dr Ward EGD, FLEXIBLE, DIAGNOSTIC 03/09/2012 UPPER GI ENDOSCOPY DIAGNOSTIC performed by Uma Lin DO at ENDOSCOPY [facility], path showsshort segment Barretts esophagitis repeat in 1 year EGD, FLEXIBLE, DIAGNOSTIC 04/05/2013 UPPER GI ENDOSCOPY DIAGNOSTIC performed by Uma Lin DO at [facility]OSCOPY [facility], inflammation consistent with long segment barretts, repeat egd in 3 years EGD, FLEXIBLE, DIAGNOSTIC 07/08/2016 Barretts, repeat 3 yrs/[facility] INSER TUNN ACC DEV;5 YRS/OLDER 02/22/08 INSERT TUNNELED CENTRAL VENOUS ACCESS WITH SUBQ PORT performed by SRIKANTH NÚÑEZ [place] [facility] LEFT VENTRICULAR PACING ELECTRODE, ADD-ON Left 08/25/2017 CS LEAD PLACEMENT WITH INITIAL DEVICE performed by Kamryn Espinoza DO at [facility] LIGATE/CUT OVIDUCT(S) MASTECTOMY, SIMPLE, COMPLETE 01/14/08 MASTECTOMY SIMPLE COMPLETE performed by SRIKANTH NÚÑEZ [place] [facility] THORACOSTOMY TUBE W/ WATER SEAL 02/23/2008 TRANSLUM BALLOON ANGIOPLASTY OPEN/PERC W/IMAGE 1ST VEIN 08/25/2017 ANGIOPLASTY (EXCEPT DIALYSIS CIRCUIT) performed by Kamryn Espinoza DO at [facility] VENOGRAM EXTREMITY UNI-FLUOR 08/25/2017 IMAGING SUPERVISION & INTERPRETATION EXTREMITY VEIN performed by Kamryn Espinoza DO at [facility] Review of patient's allergies indicates: Allergen Reactions Adhesive Tape Other (Please comment) Welts, blisters Bee Stings Bee Venom Hives Iodine Hives Ivp Dye hives Family History Problem Relation Name Age of Onset Breast Cancer Sister Heart Disorder Father IA Heart Disorder Sister MVP Hypertension Mother Cancer Brother thyroid Cancer Brother brain Other (skin disorders) Brother denies melanoma or other skin disorders Family Status Relation Status Mo Alive Fa at age 67 [place] Sis Alive Sis Alive Sis Alive Sis (Not Specified) Sis Alive MVP Bro Alive Bro Alive Bro Alive Bro Cardiac abnormality Son Alive Son Alive Son Alive Rashid Alive Son at age 1 Pneumonia Sis (Not Specified) Bro (Not Specified) Bro (Not Specified) Social History Socioeconomic History Marital status: Spouse name: Trace Number of children: 4 Years of education: Not on file Highest education level: Not on file Occupational History 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 Social Determinants of Health Financial Resource Strain: Not on file Food Insecurity: No Food Insecurity (09/17/2022) Hunger Vital Sign Worried About Running Out of Food in the Last Year: Never true Ran Out of Food in the Last Year: Never true Transportation Needs: Not on file Social Connections: Unknown (02/02/2024) Social Connections How often do you feel lonely or isolated from those around you? (Adult - for ages 18 years and over): Not on file Housing Stability: Not on file Review of Systems Constitutional: Negative for chills, fatigue and fever. HENT: Positive for congestion, postnasal drip, rhinorrhea, sinus pressure and sinus pain. Negative for sore throat. Eyes: Negative for photophobia and itching. Respiratory: Positive for cough. Negative for apnea, chest tightness, shortness of breath and wheezing. Cardiovascular: Negative for chest pain and palpitations. Gastrointestinal: Negative for abdominal distention, abdominal pain, nausea and vomiting. Genitourinary: Negative for dysuria and frequency. Musculoskeletal: Negative for arthralgias and myalgias. Skin: Negative for pallor and rash. Neurological: Negative for dizziness, light-headedness and headaches. Psychiatric/Behavioral: Negative for sleep disturbance. The patient is not nervous/anxious. Objective BP 104/70 (BP Site: Left Arm, BP Position: Sitting, BP Cuff Size: Regular) | Pulse 90 | Temp 37.7 C (99.9 F) (Tympanic) | Resp 16 | Ht 1.422 m (4' 8") | Wt 80.8 kg (178 lb 1.6 oz) | SpO2 95% | BMI 39.93 kg/m | BSA 1.79 m Physical Exam Constitutional: General: She is not in acute distress. Appearance: She is not ill-appearing. HENT: Head: Normocephalic and atraumatic. Right Ear: Tympanic membrane, ear canal and external ear normal. Left Ear: Tympanic membrane, ear canal and external ear normal. Nose: Congestion and rhinorrhea present. Comments: Tender frontal sinus areas bilaterally Mouth/Throat: Mouth: Mucous membranes are moist. Pharynx: Oropharynx is clear. Eyes: General: No scleral icterus. Extraocular Movements: Extraocular movements intact. Conjunctiva/sclera: Conjunctivae normal. Pupils: Pupils are equal, round, and reactive to light. Cardiovascular: Rate and Rhythm: Normal rate and regular rhythm. Pulses: Normal pulses. Heart sounds: Normal heart sounds. No murmur heard. No friction rub. No gallop. Pulmonary: Effort: Pulmonary effort is normal. Breath sounds: Normal breath sounds. No wheezing, rhonchi or rales. Abdominal: General: Bowel sounds are normal. There is no distension. Palpations: Abdomen is soft. There is no mass. Tenderness: There is no abdominal tenderness. There is no right CVA tenderness or left CVA tenderness. Musculoskeletal: General: No deformity. Normal range of motion. Cervical back: Normal range of motion and neck supple. Right lower leg: No edema. Left lower leg: No edema. Lymphadenopathy: Cervical: No cervical adenopathy. Skin: General: Skin is warm and dry. Coloration: Skin is not jaundiced. Findings: No rash. Neurological: General: No focal deficit present. Mental Status: She is oriented to person, place, and time. Cranial Nerves: No cranial nerve deficit. Sensory: No sensory deficit. Motor: No weakness. Psychiatric: Mood and Affect: Mood normal. Behavior: Behavior normal. ASSESSMENT/PLAN: Acute non-recurrent frontal sinusitis (Primary) - Cefuroxime Axetil 500 MG Oral Tablet (Ceftin); Take 1 Tablet by mouth in the morning and 1 Tabletbefore bedtime. Do all this for 10 days. Plan: Patient presents office with likely persistent frontal sinusitis. This is despite use of OTC/symptomatic care. No evidence of LRTI at this time Reviewed previous allergies medication list. Will start Ceftin 500 mg twice daily for 10 days. Counseled to take with food. Counseled on common side effects for which to monitor. Recommend saline sinus rinses 4 times daily for the next week or so Keep well hydrated. Continue other meds/management Follow Up: Return if symptoms worsen or fail to improve, for Follow up next routine with PCP as scheduled. | For: Follow up next routine with PCP as scheduled | Check-out note: Follow up as needed ifno improvement Zak Paul DO documented in this encounter Nursing Notes * Vani Calvert, MED ASSIST - 02/29/2024 11:27 AM EDT Eduarda Bond presents with complaints of: Cold Symptoms- Body aches, Chills, Cough - dry, Ear symptoms: Pain- bilateral Pressure- bilateral Head Congestion- bilateral, Fever - 100.0, Nasal congestion, Sore throat - Sore throat due to drainage, and Patient denies other symptoms Onset of symptoms: 2 day(s) ago. documented in this encounter Plan of Treatment Upcoming Encounters Date Type Department Care Team (Late st Contact Info) Description 03/17/2024 2:20 PM EDT Office Visit General Internal Medicine [facility] [address] [facility] [place] [address] Ruth Brandon MD [address] [facility] [place] [address] 03/22/2024 11:10 AM EDT Anticoagulation Pharmacy, [facility] [address] [facility] [place] [address] [facility] [address] [facility] [place] [address] 04/07/2024 10:40 AM EDT Office Visit Podiatry [facility] [address] [facility] [place] [address] Nicki Gomez DP [address] [facility] [place] [address] 04/20/2024 1:20 PM EDT Office Visit Rheumatology [place] [address] [facility] [place] [address] [place] [address] [place] [address] [place] [address] 05/12/2024 9:30 AM EDT Office Visit Cardiology, [facility] [address] [place] [address] Ramsey Gonsalez MD [address] [place] [address] Scheduled Procedures Name Priority Associated Diagnoses Date/Ti [...] D LEVEL ONCE IN A LIFETIME-USE SMARTSET# [id number] Completed 02/10/2023, 03/18/2021, 02/02/2020, Additional history exists [...] this encounter Medical Devices Implanted Type Area Phlebotomy Technologist Device Identifier Shelf Expiration Date Model / Serial / Lot Port 6fr Chronoflex [id number] - [id number] Implanted:Qty: 1 on 02/22/2008 [place] [facility] [place]: Chest CR BARD : [employer] [id number] / / [id number] documented as of this encounter Visit Diagnoses Diagnosis Acute non-recurrent frontal sinusitis- Primary documented in this encounter Advance Directives * Full Code (Latest Code Status on File) Date Activated Date Inactivated Comments 02/22/2008 6:21 PM 02/25/2008 5:28 PM * Full Code Date Activated Date Inactivated Comments 02/22/2008 11:42 AM 02/22/2008 6:21 PM * Full Code Date Activated Date Inactivated Comments 01/14/2008 1:06 PM 01/16/2008 7:05 PM Care Teams Camera Repairman Relationship Specialty Start Date End Date Ruth Brandon MD [address] [place] [address] PCP - General Internal Medicine 04/25/21 documented as of this encounter
--- OUTSIDE RECORDS SUMMARY | 2024-05-20 21:33 | External Medical Summary ---
Author Name Unknown Address Unknown Organization K0G:LABORATORY [facility] [id number] [place] [address] Laboratory Report Ordering Provider Test Date Status RIYA RODRIGUEZ 04/05/2024 13:40:32 Final Therapeutic ranges for non-o perative patients:
Prophylaxsis/treatment of DVT: (Range:2.0-3.0)
Treatment of pulmonary embolism:(Range:2.0-3.0)
Prevention of systemic embolism from:
-tissue heart valves
-acute myocardial infarction
-valvular heart disease
-atrial fibrillation
(Range: 2.0-3.0)
Mechanical prosthetic valves: (Range: 2.5-3.5) Observation Date Value Abnormality Reference (Units ) Status INR in Capillary blood by Coagulation assay 04/05/2024 13:40:32 3.0 (INR) Final Performing Location [facility] [address] [place] [address]
--- OUTSIDE RECORDS SUMMARY | 2024-05-20 21:33 | External Medical Summary ---
Author Name Unknown Address Unknown Organization [id number]:[facility] [id number] [place] [address] Laboratory Report Ordering Provider Test Date Status RIYA RODRIGUEZ 02/23/2024 11:29:26 Final Therapeutic ranges for non-o perative patients:
Prophylaxsis/treatment of DVT: (Range:2.0-3.0)
Treatment of pulmonary embolism:(Range:2.0-3.0)
Prevention of systemic embolism from:
-tissue heart valves
-acute myocardial infarction
-valvular heart disease
-atrial fibrillation
(Range: 2.0-3.0)
Mechanical prosthetic valves: (Range: 2.5-3.5) Observation Date Value Abnormality Reference (Units ) Status INR in Capillary blood by Coagulation assay 02/23/2024 11:29:26 2.7 (INR) Final Performing Location [facility] [address] [place] [address]
--- OUTSIDE RECORDS SUMMARY | 2024-05-20 21:33 | External Medical Summary ---
Author Name Unknown Address Unknown Organization [id number]:LABORATORY [facility] - [address] [place] [address] Laboratory Report Ordering Provider Test Date Status RODNEY RENAE 04/20/2024 14:08:08 Final Deficient: <20 ng/mL
Ins ufficient: 20-29 ng/mL
Recommended/Optimum:30-50 ng/mL

Vitamin D intoxication is rare. If suspicious of Vitamin D toxicity, evaluation of serum Calcium and PTH is recommended. Observation Date Value Abnormality Reference (Units ) Status 25-OH Vitamin D total 04/20/2024 14:08:08 39 >19 (ng/mL) Final Performing Location LABORATORY C - [address] [place] [address]
--- OUTSIDE RECORDS SUMMARY | 2024-05-20 21:33 | External Medical Summary | Summary of Care ---
Author Name Unknown Organization [facility] Address [address] [facility] [address] Phone [phone] Care Team Providers Care Figure Clerk Name Role Phone Ruth Brandon MD Primary Care Provider + Encounter Details Date Type Department Care Team (Late st Contact Info) Description 01/27/2024 9:45 AM EDT Scheduled Telephone Care Coordination and Integration [address] [place] [address] Brayan Drake [facility] [address], [place] [id number] Allergies Active Allergy Reactions Criticality Noted Date Comments Adhesive Tape Other (Please comment) 01/24/2008 Welts, blisters Bee Stings 02/14/2003 Bee Venom Hives 10/17/2019 Iodine Hives 10/17/2019 Ivp Dye 01/10/1998 hives documented as of this encounter (statuses as of 01/27/2024) Medications Medication Sig Dispensed Refills Start Date [...] as of this encounter (statuses as of 01/27/2024) Active Problems Problem Noted Date Diagnosed Date Chronic atrial fibrillation 12/29/2023 Atherosclerosis of aorta 06/23/2023 Atherosclerosis of coronary artery of [place] heart without angina pectoris 06/23/2023 Atrial [...] as of this encounter (statuses as of 01/27/2024) Resolved Problems Problem Noted Date Diagnosed Date [...] HX OF BREAST MALIGNANCY - ri ght, [id number], 200702/26/2011 10/04/2013 Polyneuropathy in other dise ases [...] as of this encounter (statuses as of 01/27/2024) Immunizations Name Administration Dates Next Due COVID-19 mRNA, LNP-s, No Pre serve, 2-Dose Series ([employer]) 07/19/2021,11/06/2020,10/11/2020 COVID-19, LNP-s, No Preserve , Sony-sucrose, Ages 12+ ([employer]) 12/27/2021 COVID-19, MRNA-LNP, 23-24, P F, 30 [...] as of this encounter Progress Notes * Brayan Drake [facility] - 01/27/2024 9:57 AM EDT Telemedicine visit: No [facility] (CASIMIRO) documentation: CHW follow up phone call for RNCM attempted and reached the paient's voicemail. CHW left a brief message with my callback information. Norm Drake [facility] Worker Lead ERIC Liriano [phone] documented in this encounter Plan of Treatment Upcoming Encounters Date Type Department Care Team (Late st Contact Info) Description 02/09/2024 11:40 AM EDT [facility] [address] [place] [address] [email or web address] [address] [place] [address] 03/08/2024 1:20 PM EDT Office Visit Rheumatology [address] [place] [address] Sergio Coughlin MD [facility] [address] [facility] [place] [address] 03/17/2024 2:20 PM EDT Office Visit General Internal Medicine [facility] [place] [address] [place] [address] Ruth Brandon MD [address] [place] [address] 04/07/2024 10:40 AM EDT [facility] [address] [place] [address] Nicki Gomez DPM [address] [place] [address] 05/12/2024 9:30 AM EDT Office Visit Cardiology, [facility] [address] [place] [address] Ramsey Gonsalez MD [address] [place] [address] Scheduled Procedures Name Priority Associated Diagnoses Date/Ti [...] history exists Depression Screening 01/11/2025 01/12/2024, 01/12/20 Albumin/Creatinine Ratio 05/06/2025 05/06/2022, 01/2017 DTaP,Tdap,and Td Vaccines (3 - Td or Tdap) 04/29/2026 04/29/2016, 03/02/2006 Pneumococcal Vaccine: 65+ Years Completed 04/04/2015, 09/28/2012, 10/28/2006 Zoster Vaccines Completed 01/15/2019, 02/2018, 04/02/2011 VITAMIN D LEVEL ONCE IN A LIFETIME-USE SMARTSET# [id number] Completed 02/10/2023, 03/18/2021, 02/02/2020, Additional history exists [...] this encounter Medical Devices Implanted Type Area State Comptroller Device Identifier Shelf Expiration Date Model / Serial / Lot Port 6fr Chronoflex [id number] - [id number] Implanted:Qty: 1 on 02/22/2008 at [place] [facility] [place] Left: Chest CR BARD : [employer] [id number] / / [id number] documented as of this encounter Advance Directives * Full Code (Latest Code Status on File) Date Activated Date Inactivated Comments 02/22/2008 6:21 PM 02/25/2008 5:28 PM * Full Code Date Activated Date Inactivated Comments 02/22/2008 11:42 AM 02/22/2008 6:21 PM * Full Code Date Activated Date Inactivated Comments 01/14/2008 1:06 PM 01/16/2008 7:05 PM Care Teams Figure Clerk Relationship Specialty Start Date End Date Ruth Brandon MD [address] [facility] [place] [address] PCP - General Internal Medicine 04/25/21 documented as of this encounter
--- OUTSIDE RECORDS SUMMARY | 2024-05-20 21:33 | External Medical Summary | Summary of Care ---
Author Name Unknown Organization [facility] Address [address] [facility] [facility] [address] Phone [phone] Care Team Providers Care Tab Machine Operator Name Role Phone Ruth Brandon MD Primary Care Provider + Reason for Visit * Reason Comments Dosage Adjustment In Person (Anticoag Cl inic) Encounter Details Date Type Department Care Team (Latest Contact Info) Description 02/09/2024 11:40 AM EDT Anticoagulation Pharmacy, [facility] 132 [facility] [place] [address] [facility] 132 [facility] [place] [address] Anticoagulation management encounter*; Atrial thrombus; Thrombus due to any device, implant or graft, initial encounter; 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 Allergies Active Allergy Reactions Criticality Noted Date Comments Adhesive Tape Other (Please comment) 01/24/2008 Welts, blisters Bee Stings 02/14/2003 Bee Venom Hives 10/17/2019 Iodine Hives 10/17/2019 Ivp Dye 01/10/1998 hives documented as of this encounter (statuses as of 02/09/2024) Medications Medication Sig Dispensed Refills Start Date [...] as of this encounter (statuses as of 02/09/2024) Active Problems Problem Noted Date Diagnosed Date Chronic atrial fibrillation 12/29/2023 Atherosclerosis of aorta 06/23/2023 Atherosclerosis of coronary artery of [place] heart without angina pectoris 06/23/2023 Atrial thrombus [...] as of this encounter (statuses as of 02/09/2024) Resolved Problems Problem Noted Date Diagnosed Date [...] HX OF BREAST MALIGNANCY - ri ght, [id number], 200702/26/2011 10/04/2013 Polyneuropathy in other dise ases [...] as of this encounter (statuses as of 02/09/2024) Immunizations Name Administration Dates Next Due COVID-19 mRNA, LNP-s, No Pre serve, 2-Dose Series ([employer]) 07/19/2021,11/06/2020,10/11/2020 COVID-19, LNP-s, No Preserve , Sony-sucrose, [...] Progress Notes * Tete Guerrero, [facility] - 02/09/2024 12:06 PM EDT Images from the original note were not included. Medication Therapy Disease Management - Anticoagulation Patient: Eduarda Bond | : 1945 Subjective Patient-Reported Symptoms: Patient Findings Positives: Change in medications (amidoarone started about 5 weeks) Negatives: Signs/symptoms of thrombosis, Signs/symptoms of bleeding, Change in health, Change in alcohol use, Change in activity, Upcoming invasive procedure, Missed doses, Extra doses, Change in diet/appetite, Bruising Objective Current Warfarin Dose As of 02/09/2024 Warfarin maintenance plan: 0 mg every Mon, Wed, Fri; 2.5 mg (5 mg x 0.5) all other days INR Result As of 02/09/2024 INR goal: 2.0-3.0 INR used for dosin.6 (02/09/2024) Assessment & Plan Warfarin Plan As of 02/09/2024 Full warfarin instructions: 02/08: Hold; Otherwise 0 mg every Mon, Wed, Fri; 2.5 mg all other days Next INR check: 02/23/2024 Repeat PT/INR in 2 week(s) Weekly dose: decreased Additional Dosing Information: Description Fax results to [phone] for cataract surgery Tete Guerrero [facility] Clinical Pharmacist 02/09/2024, 12:13 PM documented in this encounter Plan of Treatment Upcoming Encounters Date Type Department Care Team (Late st Contact Info) Description 02/23/2024 11:30 AM EDT Anticoagulation Pharmacy, [facility] [address] [place] [address] [address] [facility] 132 [place] [address] 03/08/2024 1:20 PM EDT Office Visit Rheumatology [address] [place] [address] Sergio Coughlin MD [facility] [facility] [place] [address] 03/17/2024 2:20 PM EDT Office Visit General Internal Medicine [facility] 200 [facility] [place] [address] Ruth Brandon MD 200 [facility] [place] [address] 04/07/2024 10:40 AM EDT Office Visit Podiatry [facility] [address] [place] [address] Nicki Gomez DPM [address] [place] [address] 05/12/2024 9:30 AM EDT Office Visit Cardiology, [facility] [address] [address] Ramsey Gonsalez MD [address] [place] [address] Scheduled Procedures Name Priority Associated Diagnoses Date/Ti [...] D LEVEL ONCE IN A LIFETIME-USE SMARTSET# [id number] Completed 02/10/2023, 03/18/2021, 02/02/2020, Additional history exists [...] this encounter Medical Devices Implanted Type Area Dry Ice Maker Device Identifier Shelf Expiration Date Model / Serial / Lot Port 6fr Chronoflex [id number] - [id number] Implanted:Qty: 1 on 02/22/2008 at [facility] Left: Chest CR BARD : [employer] [id number] / / [id number] documented as of this encounter Procedures Procedure Name Priority Date/Time Associated Diagnosis Comments INR FINGERSTICK, POINT OF CARE STAT 02/09/2024 11:37 AM EDT Atrial thrombus Thrombus due to any device, implant or graft, initial encounter 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 documented in this encounter Results * INR FINGERSTICK, POINT OF CARE (02/09/2024 11:37 AM EDT) Fingerstick INR 3.6 INR 11:48 AM EDT [facility] Blood 02/09/2024 11:3 7 AM EDT 02/09/2024 11:48 AM EDT Narrative [facility] - 02/09/2024 11:48 AM EDT Therapeutic ranges for non-operative patients: Prophylaxsis/treatment of DVT: (Range:2.0-3.0) Treatment of pulmonary embolism:(Range:2.0-3.0) Prevention of systemic embolism from: -tissue heart valves -acute myocardial infarction -valvular heart disease -atrial fibrillation (Range: 2.0-3.0) Mechanical prosthetic valves: (Range: 2.5-3.5) Tete Guerrero [facility] POINT OF C ARE TEST DOCKED DEVICE UNSOLICITED RESULTS [facility] 132 [facility] [place] [address] documented in this encounter Visit Diagnoses Diagnosis Anticoagulation management encounter- Primary Encounter for therapeutic drug monitoring Atrial thrombus Other ill-defined heart disease Thrombus due to any device, implant or graft, initial encounter residential current use of anticoagulant therapy documented in this encounter Advance Directives * Full Code (Latest Code Status on File) Date Activated Date Inactivated Comments 02/22/2008 6:21 PM 02/25/2008 5:28 PM * Full Code Date Activated Date Inactivated Comments 02/22/2008 11:42 AM 02/22/2008 6:21 PM * Full Code Date Activated Date Inactivated Comments 01/14/2008 1:06 PM 01/16/2008 7:05 PM Care Teams Tab Machine Operator Relationship Specialty Start Date End Date Ruth Brandon MD [address] [place] [address] PCP - General Internal Medicine 04/25/21 documented as of this encounter"
--- OUTSIDE RECORDS SUMMARY | 2024-05-20 21:33 | External Medical Summary | Summary of Care ---
Author Name Unknown Organization [facility] Address [address] [facility] [address] Phone [phone] Care Team Providers Care Visualization Developer Name Role Phone Ruth Brandon MD Primary Care Provider + Reason for Visit * Reason Comments Dosage Adjustment In Person (Anticoag Cl inic) Encounter Details Date Type Department Care Team (Latest Contact Info) Description 04/05/2024 1:50 PM EDT Anticoagulation Pharmacy, [facility] 132 [facility] [place] [address] [facility] 132 [facility] [place] [address] Anticoagulation management encounter*; Atrial thrombus; Thrombus due to any device, implant or graft, initial encounter Allergies Active Allergy Reactions Criticality Noted Date Comments Adhesive Tape Other (Please comment) 01/24/2008 Welts, blisters Bee Stings 02/14/2003 Bee Venom Hives 10/17/2019 Iodine Hives 10/17/2019 Ivp Dye 01/10/1998 hives documented as of this encounter (statuses as of 04/05/2024) Medications Medication Sig Dispensed Refills Start Date [...] as of this encounter (statuses as of 04/05/2024) Active Problems Problem Noted Date Diagnosed Date Nonischemic cardiomyopathy 03/17/2024 Chronic atrial fibrillation 12/29/2023 Atherosclerosis of aorta 06/23/2023 Atherosclerosis of coronary artery of [place] heart without angina pectoris 06/23/2023 Atrial thrombus [...] as of this encounter (statuses as of 04/05/2024) Resolved Problems Problem Noted Date Diagnosed Date [...] HX OF BREAST MALIGNANCY - ri ght, [id number], 200702/26/2011 10/04/2013 Polyneuropathy in other dise ases [...] as of this encounter (statuses as of 04/05/2024) Immunizations Name Administration Dates Next Due COVID-19 mRNA, LNP-s, No Pre serve, 2-Dose Series ([employer]) 07/19/2021,11/06/2020,10/11/2020 COVID-19, LNP-s, No Preserve , [...] Progress Notes * Tete Guerrero RPh - 04/05/2024 2:22 PM EDT Medication Therapy Disease Management - Anticoagulation Patient: Eduarda Bond | : 1945 Subjective Patient-Reported Symptoms: Patient Findings Negatives: Signs/symptoms of thrombosis, Signs/symptoms of bleeding, Change in health, Change in alcohol use, Change in activity, Upcoming invasive procedure, Missed doses, Extra doses, Change in medications, Change in diet/appetite, Bruising Objective Current Warfarin Dose As of 04/05/2024 Warfarin maintenance plan: 0 mg every Mon, Wed, Fri; 2.5 mg (5 mg x 0.5) all other days INR Result As of 04/05/2024 INR goal: 2.0-3.0 INR used for dosin.0 (04/05/2024) Assessment & Plan Warfarin Plan As of 04/05/2024 Full warfarin instructions: 0 mg every Mon, Wed, Fri; 2.5 mg all other days No change documented: Tete Guerrero [facility] Next INR check: 05/10/2024 Repeat PT/INR in 5 week(s) Weekly dose: not changed Additional Dosing Information: I spent a total of 10-19 minutes (exact time 10 mins) on the date of service in preparation, delivery, and documentation of the care provided to Eduarda oBnd excluding any time spent in the performance of separately billed services or time spent by another provider/QHP. Tete Guerrero [facility] Clinical Pharmacist 04/05/2024, 2:22 PM documented in this encounter Plan of Treatment Upcoming Encounters Date Type Department Care Team (Late st Contact Info) Description 04/07/2024 10:40 AM EDT [facility] [address] [place] [address] Nicki Gomez DPM 132 [place] [address] 04/20/2024 1:20 PM EDT Office Visit Rheumatology [address] [place] [address] Sergio Coughlin MD [address] [place] [address] [place] [address] 05/10/2024 11:40 AM EDT Anticoagulation Pharmacy, [facility] 132 [place] [address] [facility] 132 [place] [address] 05/12/2024 9:30 AM EDT Office Visit Cardiology, [facility] 132 [place] [address] Ramsey Gonsalez MD [address] [place] [address] 10/04/2024 3:00 PM EST Office Visit General Internal Medicine [facility] [address] [place] [address] [address] Ruth Brandon MD [address] [place], [place] [address] Scheduled Procedures Name Priority Associated Diagnoses Date/Ti [...] D LEVEL ONCE IN A LIFETIME-USE SMARTSET# [id number] Completed 02/10/2023, 03/18/2021, 02/02/2020, Additional history exists [...] this encounter Medical Devices Implanted Type Area Hasher Machine Operator Device Identifier Shelf Expiration Date Model / Serial / Lot Port 6fr Chronoflex [id number] - [id number] Implanted:Qty: 1 on 02/22/2008 at [facility] Left: Chest CR BARD : [employer] [id number] / / [id number] documented as of this encounter Procedures Procedure Name Priority Date/Time Associated Diagnosis Comments INR FINGERSTICK, POINT OF CARE STAT 04/05/2024 1:40 PM EDT Atrial thrombus Thrombus due to any device, implant or graft, initial encounter Anticoagulation management encounter documented in this encounter Results * INR FINGERSTICK, POINT OF CARE (04/05/2024 1:40 PM EDT) Fingerstick INR 3.0 INR 1:[address] [facility] 04/05/2024 1:40 PM EDT 04/05/2024 1:57 PM EDT Narrative [facility]10 - 04/05/2024 1:57 PM EDT Therapeutic ranges for non-operative patients: Prophylaxsis/treatment of DVT: (Range:2.0-3.0) Treatment of pulmonary embolism:(Range:2.0-3.0) Prevention of systemic embolism from: -tissue heart valves -acute myocardial infarction -valvular heart disease -atrial fibrillation (Range: 2.0-3.0) Mechanical prosthetic valves: (Range: 2.5-3.5) Tete Guerrero [facility] LAB POINT OF C ARE TEST DOCKED DEVICE UNSOLICITED RESULTS [facility] 132 [facility] [place] [address] documented in this encounter Visit Diagnoses Diagnosis [...] 1:06 PM 01/16/2008 7:05 PM Care Teams Visualization Developer Relationship Specialty Start Date End Date Ruth Brandon MD 200 [place] [address] PCP - General Internal Medicine 04/25/21 documented as of this encounter"
--- OUTSIDE RECORDS SUMMARY | 2024-05-20 21:33 | External Medical Summary ---
Author Name Unknown Address Unknown Organization [id number] [address] - [address] [place] [address] Laboratory Report Ordering Provider Test Date Status RODNEY RENAE 04/20/2024 14:08:08 Final Observation Date Value Abnormality Reference (Units ) Status Creatinine 04/20/2024 14:08:08 1.0 0.5-1.0 (mg/dL) Final Glomerular filtration rate/1.73 sq M.predicted [Volume Rate/Area] in Serum, Plasma or Blood by Creatinine-based formula (CKD-EPI) 04/20/2024 14:08:08 56 Below low normal >=60 (mL/min) Final eGFR is calculated based on the CKD-EPI 2020 equation. Performing Location [facility] 57-1 0 - [address] [place] [address]
--- OUTSIDE RECORDS SUMMARY | 2024-05-20 21:34 | External Medical Summary | Summary of Care ---
Author Name Unknown Organization [facility] Address [address] [place] [place] [address] Phone [phone] Care Team Providers Care Laser Engineer Name Role Phone Ruth Brandon MD Primary Care Provider + Reason for Visit * Reason Comments Dosage Adjustment In Person (Anticoag Cl inic) Adult Annual Wellness Visit, Subsequent Visit Encounter Details Date Type Department Care Team (Late st Contact Info) Description 01/12/2024 11:40 AM EDT Pharmacy Pharmacy, [facility] [address] [facility] [place] [address] [facility] [address] Routine general medical examination at a health care facility* Allergies Active Allergy Reactions Criticality Noted Date Comments Adhesive Tape Other (Please comment) 01/24/2008 Welts, blisters Bee Stings 02/14/2003 Bee Venom Hives 10/17/2019 Iodine Hives 10/17/2019 Ivp Dye 01/10/1998 hives documented as of this encounter (statuses as of 01/12/2024) Medications Medication Sig Dispensed Refills Start Date [...] as of this encounter (statuses as of 01/12/2024) Active Problems Problem Noted Date Diagnosed Date Chronic atrial fibrillation 12/29/2023 Atherosclerosis of aorta 06/23/2023 Atherosclerosis of coronary artery of [place] heart without angina pectoris 06/23/2023 Atrial thrombus [...] as of this encounter (statuses as of 01/12/2024) Resolved Problems Problem Noted Date Diagnosed Date [...] HX OF BREAST MALIGNANCY - ri ght, [id number], 200702/26/2011 10/04/2013 Polyneuropathy in other dise ases [...] as of this encounter (statuses as of 01/12/2024) Immunizations Name Administration Dates Next Due COVID-19 mRNA, LNP-s, No Pre serve, 2-Dose Series ([email or web address]) 07/19/2021,11/06/2020,10/11/2020 COVID-19, LNP-s, No Preserve , Sony-sucrose, [...] Inj 04/18/2014,04/30/2013,06/05/2012,04/18,05/28/2010,05/24/2008,06/17/20 07,06/27/2006 TD, Preservative Free 04/29/2016 TDAP (age 11 and older)(Adacel) 03/02/2006 Varicella Zoster Vaccine (Adult) 04/02/2011 Zoster Vaccine Recombinant (Shingrix) 01/15/2019 ,04/23/2018 documented as of this encounter Social History Tobacco Use Types Packs/Day Years Used Date Smoking Tobacco: Never Smokeless Tobacco: Never Alcohol Use Standard Drinks/Week Comments Not Currently 0 (1 standard drink = 0.6 oz pur e alcohol) Rare glass of wine PHQ-2 Answer Date Recorded PHQ Adult Total Score 0 09/17/2022 Hunger Vital Sign Answer Date Recorded Within [...] Sign Reading Time Taken Comments Blood Pressure 137/69 01/12/2024 11:43 AM EDT Pulse 67 01/12/2024 11:43 AM EDT Temperature - - Respiratory Rate - - Oxygen Saturation - - Inhaled Oxygen Concentration - - Weight 78.3 kg (172 lb 9.6 oz) 01/12/2024 11:43 AM EDT Height 142.2 cm (4' 7.98") 01/12/2024 11:43 AM E DT Body Mass Index 38.72 01/12/2024 11:43 AM EDT documented in this encounter Patient Instructions * Patient Instructions* Tete Guerrero, [facility] - 01/12/2024 11:42 AM EDT Hi Jad Renettavicente, As your primary care physician, I know that regular visits with my patients who have several chronic conditions can go a long way in helping you stay healthy. Many times, the clinic team and I are in touch with you and/or other care team members between office visits to adjust medications, discuss any changes in your health, and review our care plan to make sure it is still meeting your needs. I am dedicated to helping you take a more active role in your overall care. It is important that there are resources available to you, so I created a personalized plan of care with a Health Calendar for you, which is included on the next page of this letter. Below is a list that summarizes your electronic health record: Health Maintenance Due: Health Maintenance Due Topic Date Due Yi's Esophagus Surveilance 04/05/2016 Depression Screening 09/17/2023 COVID-19 Vaccine ( season) 2023 Current Medication List: (as of Visit date not found (in office), Visit date not found (telemedicine) ) Current Outpatient Medications Medication Sig Dispense Refill VITAMIN B-6 100 MG PO TABS one tab daily CALCIUM 1250 MG PO TABS 2000 mg daily ASPIRIN 81 MG PO TABS 1 tab daily VITAMIN D 2000 UNITS PO CAPS 1000 units daily albuterol (VENTOLIN HFA) 108 (90 BASE) MCG/ACT inhaler Inhale 2 Puffs by mouth every 6 hours asneeded for Wheezing. 3 Inhaler 1 acetaminophen (TYLENOL) [...] Apply to areas of itchy rash on back,arms, and neck twice daily 450 g 5 Entresto 24-26 MG Oral Tablet (sacubitril-valsartan 24-26 mg per tab) TAKE ONE TABLET BY MOUTH TWICE A DAY 200 Tablet 3 Rosuvastatin Calcium 10 MG Oral Tablet (Crestor) TAKE ONE TABLET BY MOUTH EVERY DAY IN THE MORNING 90 Tablet 3 Warfarin Sodium 5 MG Oral Tablet (Coumadin) TAKE 1 TABLET BY MOUTH EVERY EVENING OR DIRECTEDBY ANTICOAGULATION CLINIC (Patient taking differently: Take 0.5 Tablets by mouth. 5 days a week , thu, , sat, sun) 90 Tablet 3 Pantoprazole Sodium 40 MG Oral Tablet Delayed Release (Protonix) TAKE ONE TABLET BY MOUTH EVERYDAY 100 Tablet 2 Metoprolol Succinate ER 25 MG Oral Tablet Extended Release 24 Hour (toPROL XL) Take 1 Tablet bymouth in the morning. 100 Tablet 3 Amiodarone HCl 200 MG Oral Tablet (Cordarone) Take 1 Tablet by mouth in the morning. 100 Tablet3 Levothyroxine Sodium 25 MCG Oral Tablet (Levoxyl) TAKE ONE TABLET BY MOUTH DAILY AT LEAST 30 MINUTES PRIOR TO FIRST MEAL OF THE DAY OR OTHER MEDICATIONS 100 Tablet 2 No current facility-administered medications for this visit. Current List of Allergies: (as of Visit date not found (in office), Visit date not found (telemedicine) ) Review of patient's allergies indicates: Allergen Reactions Adhesive Tape Other (Please comment) Welts, blisters Bee Stings Bee Venom Hives Iodine Hives Ivp Dye hives Most Recent Lab Results: Results for orders placed or performed in visit on 01/05/24 INR FINGERSTICK, POINT OF CARE Result Value Ref Range Fingerstick INR 2.6 INR *Note: Due to a large number of results and/or encounters for the requested time period, some results have not been displayed. A complete set of results can be found in Results Review. Sincerely, Ruth Brandon MD 01/12/2024 [employer] Calendar (as of Visit date not found (in office), Visit date not found (telemedicine) ) Care needs Care needs Last completed Due next Yi's Esophagus Surveilance 04/05/2013 04/05/2016 COVID-19 Vaccine ( season) 2023 11/11/2023 Bone Density 2022 2024 Kidney Function Test 09/22/2023 09/22/2024 Yearly thyroid level check 09/22/2023 09/22/2024 Urine albumin/creatinine test 05/06/2022 05/06/2025 Diphtheria, tetanus & pertussis vaccines (3 - Td or Tdap) 04/29/2016 04/29/2026 As you look over the recommended services, be sure to check with your insurance company to determine what's covered. [employer] is a great tool that helps you review your medical record online, including test results, doctor notes and your health summary. You can also schedule appointments with me and other members of your care team, request prescription refills and ask for advice related to your medical conditions at [employer]org. documented in this encounter Progress Notes * Tete Guerrero RPh - 01/12/2024 11:42 AM EDT I had the privilege of seeing Eduarda Bond for an Annual Wellness Visit today. Care Gaps and Best Practices were addressed as appropriate I reviewed health maintenance items and preventative health recommendations. All other screenings and interventions are noted below. Adult Annual Wellness Visit: Eduarda Bond is a 78 year old female who presents for an Adult Annual Wellness Visit. Depression Screening: Did the patient complete the screening questionnaire for Depression? Yes Is the patient's total score for Depression 15 or greater? No, no further intervention needed, unless requested by patient. Did the patient answer positively to the suicide question? No, no further intervention needed, unless requested by patient. In general, compared to other people your age, what would you say that your health is? Good Ht Readings from Last 1 Encounters: 01/12/24 1.422 m (4' 7.98") Wt Readings from Last 1 Encounters: 01/12/24 78.3 kg (172 lb 9.6 oz) Body Mass Index: BMI Greater than 30 Body mass index is 38.72 kg/m. BP Readings from Last 1 Encounters: 01/12/24 137/69 Medical/Surgical/Family History Reviewed: Yes Past Medical History: Diagnosis Date Yi's esophagus 03/09/2012 UPPER GI ENDOSCOPY DIAGNOSTIC performed by Uma Lin DO at ENDOSCOPY [facility], path showsshort segment Barretts esophagitis repeat in 1 year Barretts esophagus 04/05/2013 UPPER GI ENDOSCOPY DIAGNOSTIC performed by Uma Lin DO at ENDOSCOPY [facility], inflammation consistent with long segment barretts, repeat [...] OPEN performed by SRIKANTH NÚÑEZ [place] [facility] CATHETERIZE LEFT HEART THRU SKIN 06/2000 Cardiac Catheterization, Left Heart COLONOSCOPY 1989 - COLONOSCOPY, DIAGNOSTIC (RECTUM) 01/30/09 repeat 10 yrs COLONOSCOPY, DIAGNOSTIC (RECTUM) 11/25/2018 diverticulosis, repeat 10 yrs/[facility] DILATION AND CURETTAGE (D&C) D&C Dr Ward EGD, FLEXIBLE, DIAGNOSTIC 03/09/2012 UPPER GI ENDOSCOPY DIAGNOSTIC performed by Uma Lin DO at ENDOSCOPY [facility], path showsshort segment Barretts esophagitis repeat in 1 year EGD, FLEXIBLE, DIAGNOSTIC 04/05/2013 UPPER GI ENDOSCOPY DIAGNOSTIC performed by Uma Lin DO at ENDOSCOPY [facility], inflammation consistent with long segment barretts, repeat egd in 3 years EGD, FLEXIBLE, DIAGNOSTIC 07/08/2016 Barretts, repeat 3 yrs/[facility] INSER TUNN ACC DEV;5 YRS/OLDER 02/22/08 INSERT TUNNELED CENTRAL VENOUS ACCESS WITH SUBQ PORT performed by SRIKANTH NÚÑEZ at [place] [facility] LEFT VENTRICULAR PACING ELECTRODE, ADD-ON Left 08/25/2017 CS LEAD PLACEMENT WITH INITIAL DEVICE performed by Kamryn Espinoza DO at [facility]ARDIAC [facility] LIGATE/CUT OVIDUCT(S) MASTECTOMY, SIMPLE, COMPLETE 01/14/08 MASTECTOMY SIMPLE COMPLETE performed by SRIKANTH NÚÑEZ at [place] [facility] THORACOSTOMY TUBE W/ WATER SEAL 02/23/2008 TRANSLUM BALLOON ANGIOPLASTY OPEN/PERC W/IMAGE 1ST VEIN 08/25/2017 ANGIOPLASTY (EXCEPT DIALYSIS CIRCUIT) performed by Kamryn Espinoza DO at [facility] VENOGRAM EXTREMITY UNI-FLUOR 08/25/2017 IMAGING SUPERVISION & INTERPRETATION EXTREMITY VEIN performed by Kamryn Espinoza DO at [facility] Family History Problem Relation Name Age of Onset Breast Cancer Sister Heart Disorder Father OK Heart Disorder Sister MVP Hypertension Mother Cancer Brother thyroid Cancer Brother brain Other (skin disorders) Brother denies melanoma or other skin disorders Has patient ever had cancer? History of cancer, type: breast and location: breast Social History Tobacco Use Smoking status: Never Smokeless tobacco: Never Substance Use Topics Alcohol use: Not Currently Comment: Rare glass of wine Vaping/E-Cigarette Use Vaping/E-Cigarette Use Never User Vaping/E-Cigarette Substances Vaping/E-Cigarette Devices Tobacco/Alcohol screening completed today? Yes Hospital Care: Admissions (within the last year): Hospital, Location: [facility] for atrial fibrillation ER within 30 days: Yes, when: 12/28/23 and where: [facility] Does the patient have an Advance Directives/Living Will? Yes Last Physical Exam: Last physical exam: 12/29/23 Does patient see primary provider regularly? Yes Does patient see other providers? Yes, Specialist Patient Care Team updated? Yes Review of patient's allergies indicates: Allergen Reactions Adhesive Tape Other (Please comment) Welts, blisters Bee Stings Bee Venom Hives Iodine Hives Ivp Dye hives Immunization History Administered Date(s) Administered COVID-19 mRNA, LNP-s, No Preserve, 2-Dose Series ([email or web address]) 10/11/2020, 11/06/2020, 07/19/2021 COVID-19, LNP-s, No Preserve, Sony-sucrose, Ages 12+ (Pfizer) 12/27/2021 COVID-19, MRNA-LNP, 23-24, PF, 30 MCG/0.3 mL, 12 YRS AND ABOVE, IM ([facility]) 07/13/2023 Covid-19, Mrna, Lnp-s, Pf, Bivalent, 30 Mcg, IM, 12 yrs and above ([email or web address]) 07/17/2022 Influenza, Whole Virus 09/15/1985 Pneumococcal Conjugate Vacc, 13 Valent (Prevnar) 04/04/2015 Pneumococcal Polysaccharide PPV23 (Pneumovax) 10/28/2006, 09/28/2012 Season Influenza, Quad, PF, Adjuvanted, 65+ Yrs, IM (FLUAD) 04/27/2020 Seasonal Influenza, PF, 6 M & above, IM , (FluLaval or Fluzone) 05/08/2017, 05/22/2018, 04/29/2019 Seasonal Influenza, Quadrivalent Hd (Fluzone Hd) 04/25/2021, 05/06/2022, 05/14/2023 Seasonal Influenza, Quadrivalent, No Preserve, IM 06/09/2015, 05/31/2016 Seasonal Influenza, Split, IIV3, With Preserve, Inj 07/21/2002, 08/03/2003, 09/03/2004, 07/22/2005,06/27/2006, 06/17/2007, 05/24/2008, 05/28/2010, 05/14/2011, 06/05/2012, 04/30/2013, 04/18/2014 TD, Preservative Free 04/29/2016 TDAP (age 11 and older)(Adacel) 03/02/2006 Varicella Zoster Vaccine (Adult) 04/02/2011 Zoster Vaccine Recombinant (Shingrix) 04/23/2018, 01/15/2019 Current Outpatient Medications Medication Sig Dispense Refill [...] (Protonix) TAKE ONE TABLET BY MOUTH EVERY [id number] Tablet 2 Metoprolol Succinate ER 25 MG [...] No current facility-administered medications for this visit. Patient Active Problem List Diagnosis Hypothyroidism Mitral [...] aorta (HCC) Atherosclerosis of coronary artery of [place] heart without angina pectoris Chronic atrial fibrillation (HCC) Medication Compliance: Patient is able to obtain all of her medications? Yes Patient takes medications as prescribed? Yes Patient manages own medications: Yes Patient uses a pill box? Yes, refill(s) completed by self Dental Exam: Yes: Every 6 Months Eye Screening: Yes: Every 2 years Are you having trouble with hearing? Yes Do you use an assistive device to help your hearing? Yes Exercise Screening: exercises 5-6 times per week Nutrition Assessment: Eats a balanced diet Pain Screening: Are you having any pain? No Sleep Screening Tool 'STOP': Do you snore? Yes, a little Do you feel fatigued during the day? No Do you wake up feeling like you haven't slept? No Have you been told you stop breathing at night? No Do you gasp for air or choke while sleeping? No Have you been told you have Sleep Apnea? No Do you have high blood pressure or are on medication(s) to control high blood pressure? Yes SCORE: If you check YES to two or more questions, make a referral for Obstructive Sleep Apnea Patient and Caregiver Support System: Patient lives with a spouse Means of Transportation: Drives. Not a concern. Patient lives in [place] Community Resources: None Functional Status and ADL Skills: Has patient ever had an amputation? No Functional Assessment: 90- Able to carry on normal activity, minor symptoms of disease Ambulation: Patient ambulates with assistive device. Independent Dressing: Gets clothes and dresses without any assistance: Independent Able to move freely in chair or bed including turning over: Independent Repositioning (bed or chair): Not applicable Transfers: Independent Toileting: Goes to bathroom, uses toilet, arranges clothes and returns without any assistance: Independent Toileting: continent of bladder and continent of bowel Feeding: Self Bathing: Self; Not Applicable Requires none assistance with ADLs. Instrumental ADL's: Shopping: Independent Housekeeping: Independent Handling Finances: Independent DME Vendor Name: Not Applicable Fall Risk Assessment: Can the patient demonstrate that she can stand from a sitting position? Yes Has the patient had a fall within the last 6 months? No Does the patient have a problem with her gait or balance? No Does the patient take 4 or more prescription medicines? Yes Does the patient use sedatives or narcotics? No Fall Risk Factors Present: Uses more than 4 medications Older than age 70 Zuz-Uv-qwo-Go Test: Time began at 11:41. Patient stood from sitting position and walked approximately 10 feet, returnedand sat down. Total time for gyl-aq-pbb-go test was 15 seconds. Our-Xi-pqc-Go Test completed? Yes Gender Specific Preventative Plan: Health Maintenance Topic Date Due Yi's Esophagus Surveilance 04/05/2016 COVID-19 Vaccine ( season) 2023 DXA Scan 2024 GFR 09/22/2024 TSH 09/22/2024 Depression Screening 01/11/2025 Albumin/Creatinine Ratio 05/06/2025 DTaP,Tdap,and Td Vaccines (3 - Td or Tdap) 04/29/2026 VITAMIN D LEVEL ONCE IN A LIFETIME-USE SMARTSET# [id number] Completed Influenza Vaccine (FLU shot) Completed Zoster Vaccines Completed Pneumococcal Vaccine: 65+ Years Completed Hepatitis B Aged Out MENINGOCOCCAL (MENACTRA/MENVEO) Aged Out GARDASIL-HPV IMMUNIZATION SERIES Aged Out Follow Up/ Referrals/Handouts: No further action needed Routine general medical examination at a health care facility (Primary) Follow Up: Return in 1 year (on 01/11/2025) for 12 month Subsequent Adult Wellness Visit. | For: 12 month Subsequent Adult Wellness Visit | Check-out note: 12 month Subsequent Adult Wellness Visit Would patient like to schedule next AWV visit? No Tete Guerrero, [facility] AD8 Dementia Screening Interview Person answering questions: patient Remember, "Yes, a change" indicates that there has been a change in the last several years caused by cognitive (thinking and memory) problems 1. Problems with judgement (eg: problems making decisions, bad financial decisions, problems with thinking). No (0) 2. Less interest in hobbies/activities. No (0) 3. Repeats the same things over and over (questions, stories, or statements). No (0) 4. Trouble learning how to use a tool, appliance, or gadget (eg: VCR, computer, microwave, remote control). No (0) 5. Forgets correct month or year. No (0) 6. Trouble handling complicated financial affairs (eg: balancing checkbook, income taxes, paying bills). No (0) 7. Trouble remembering appointments. No (0) 8. Daily problems with thinking and/or memory. No (0) TOTAL AD8: 0 - AD8 Dementia Screening Score The final score is a sum of the number items marked "Yes, A Change". 0 - 1: Normal cognition; 2 or greater: Cognitive impairments is likely to be present - further testing required documented in this encounter Plan of Treatment Upcoming Encounters Date Type Department Care Team (Late st Contact Info) Description 01/22/2024 11:45 AM EDT Office Visit Cardiology, [facility] [address] [place] [id number] Kamryn Espinoza, [address] [place] [address] 01/26/2024 11:40 AM EDT [facility], [facility] [address] [place] [address] [facility] [address] [place] [address] 03/08/2024 1:20 PM EDT Office Visit Rheumatology [place] [id number] [facility] [place] [address] Sergio Coughlin MD [facility] [place] [address] 03/17/2024 2:20 PM EDT Office Visit General Internal Medicine Shaheen Waller [place] [address] [place] [address] Ruth Brandon MD [address] [place] [address] 04/07/2024 10:40 AM EDT Office Visit Podiatry [facility] [address] [place] [address] Nicki Gomez DPM [address] [place] [address] 05/12/2024 9:30 AM EDT Office Visit Cardiology, [facility] [address] [place] [address] Ramsey Gonsalez MD [address] [place] [address] Scheduled Procedures Name Priority Associated Diagnoses Date/Ti [...] Additional history exists Depression Screening 01/11/2025 01/12/2024, 01/12/2024, 09/17/2022 Albumin/Creatinine Ratio 05/06/2025 05/06/2022, 01/2017 DTaP,Tdap,and Td Vaccines (3 - Td or Tdap) 04/29/2026 04/29/2016, 03/02/2006 Pneumococcal Vaccine: 65+ Years Completed 04/04/2015, 09/28/2012, 10/28/2006 Zoster Vaccines Completed 01/15/2019, 02/2018, 04/02/2011 VITAMIN D LEVEL ONCE IN A LIFETIME-USE SMARTSET# [id number] Completed 02/10/2023, 03/18/2021, 02/02/2020, Additional history exists [...] this encounter Medical Devices Implanted Type Area Cascara Bark Cutter Device Identifier Shelf Expiration Date Model / Serial / Lot Port 6fr [employer] [id number] - [id number] Implanted:Qty: 1 on 02/22/2008 [place] [facility] Left: Chest CR BARD : [employer] [id number] / / [id number] documented as of this encounter Visit Diagnoses Diagnosis Routine general medical examination at a health care facility- Primary documented in this encounter Advance Directives * Full Code (Latest Code Status on File) Date Activated Date Inactivated Comments 02/22/2008 6:21 PM 02/25/2008 5:28 PM * Full Code Date Activated Date Inactivated Comments 02/22/2008 11:42 AM 02/22/2008 6:21 PM * Full Code Date Activated Date Inactivated Comments 01/14/2008 1:06 PM 01/16/2008 7:05 PM Care Teams Laser Engineer Relationship Specialty Start Date End Date Ruth Brandon MD [address] [place] [address] PCP - General Internal Medicine 04/25/21 documented as of this encounter
--- OUTSIDE RECORDS SUMMARY | 2024-05-20 21:34 | External Medical Summary | Summary of Care ---
Author Name Unknown Organization [facility] Address [address] [facility] [place] [address] Phone [phone] Care Team Providers Care Polymer Tester Name Role Phone Ruth Brandon MD Primary Care Provider + Encounter Details Date Type Department Care Team (Late st Contact Info) Description 01/01/2024 Telephone Cardiology, [facility] [address] [place] [phone] Rashmi Graham PA-C [address] [place] [phone] Allergies Active Allergy Reactions Criticality Noted Date Comments Adhesive Tape Other (Please comment) 01/24/2008 Welts, blisters Bee Stings 02/14/2003 Bee Venom Hives 10/17/2019 Iodine Hives 10/17/2019 Ivp Dye 01/10/1998 hives documented as of this encounter (statuses as of 01/01/2024) Medications Medication Sig Dispensed Refills Start Date End Date Status VITAMIN B-6 100 MG PO TABS one tab daily 0 Active CALCIUM 1250 MG PO TABS 2000 mg daily 0 Active ASPIRIN 81 MG PO TABS 1 tab daily 0 Active VITAMIN D 2000 UNITS PO CAPS 1000 units daily 0 Activ e albuterol (VENTOLIN HFA) 108 (90 BASE) MCG/ACT inhalerIndications :Acute bronchitis, antibiotics not indicated Inhale 2 Puffs by mouth every 6 hours as needed for Wheezing. 3 Inhaler 1 8 Active acetaminophen (TYLENOL) 500 MG Tablet Take 2 Tablets by mouth 2 times a day as needed (pain). 0 Active Amoxicillin 500 MG Oral Capsule (Amoxil) Take 4 capsules prior to appointment 4 Capsule 6 3 Active Levothyroxine Sodium 25 MCG Oral Tablet (Levoxyl)Indicatio ns:Other specified hypothyroidism TAKE 1 TABLET BY MOUTH DAILY AT LEAST 30 MINUTES PRIOR TO FIRST MEAL OF THE DAY OR OTHER MEDICATIONS 100 Tablet 1 3 Active Furosemide 20 MG Oral Tablet [...] mouth in the morning. 100 Tablet 3 4 Active Amiodarone HCl 200 MG Oral Tablet (Cordarone) Take 1 Tablet by mouth in the morning. 100 Tablet 3 4 Active Metoprolol Succinate ER 25 MG Oral Tablet Extended Release 24 Hour (toPROL XL)Indications:Idi opathic cardiomyopathy (HCC),Chronic systolic congestive heart failure, NYHA class 2 (HCC),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) TAKE THREE TABLETS BY MOUTH EVERY MORNING AND TAKE TWO TABLETS BY MOUTH IN THE EVENING 450 Tablet 3 3 01/01/20 24 Discontinu ed(Refill) Amiodarone HCl 200 MG Oral Tablet (Cordarone) Take 1 Tablet by mouth daily with breakfast. 0 01/01/20 24 Discontinu ed(Refill) documented as of this encounter (statuses as of 01/01/2024) Active Problems Problem Noted Date Diagnosed Date Chronic atrial fibrillation 12/29/2023 Atherosclerosis of aorta 06/23/2023 Atherosclerosis of coronary artery of [place] heart without angina pectoris 06/23/2023 Atrial thrombus [...] as of this encounter (statuses as of 01/01/2024) Resolved Problems Problem Noted Date Diagnosed Date [...] HX OF BREAST MALIGNANCY - ri ght, [id number], 200702/26/2011 10/04/2013 Polyneuropathy in other dise ases [...] as of this encounter (statuses as of 01/01/2024) Immunizations Name Administration Dates Next Due COVID-19 mRNA, LNP-s, No Pre serve, 2-Dose Series (Multifonds) 07/19/2021,11/06/2020,10/11/2020 COVID-19, LNP-s, No Preserve , Sony-sucrose, Ages 12+ (Pfizer) 12/27/2021 COVID-19, MRNA-LNP, 23-24, P F, 30 MCG/0.3 mL, 12 YRS AND ABOVE, IM ([facility]) 07/13/2023 Covid-19, Mrna, Lnp-s, Pf, B ivalent, 30 Mcg, IM, 12 yrs and above (Multifonds) 07/17/2022 Pneumococcal Conjugate Vacc, 13 Valent (Prevnar) [...] encounter Miscellaneous Notes * Telephone Encounter - Herber De Dios [facility] - 01/01/2024 3:30 PM EDT Pt scheduled for earlier OFS on to ensure INR is not moving up in trajectory. And if it is we can adjust the pts dose so that she will be in range for her upcoming cataracts surgery on the . Herber De Dios, PharmD, BCACP, [facility] Clinical Pharmacist 01/01/2024, 3:31 PM * Telephone Encounter - Rashmi Graham PA-C - 01/01/2024 10:30 AM EDT Patient here for wound check. Reported she needed refills for med changes on hospital discharge including amiodarone 200 mg - 1 tab daily and metoprolol succinate changed to 25 mg daily Scripts Sent to mail order as requested. She will keep f/u as scheduled in a few weeks with Dr. Espinoza Patient aware. Also - nursing staff - Please notify [facility] clinic that patient had been started on amiodarone during hospital stay December 25, 2023 . Not sure if she needs sooner INR documented in this encounter Plan of Treatment Upcoming Encounters Date Type Department Care Team (Late st Contact Info) Description 01/05/2024 8:50 AM EDT Anticoagulation Pharmacy, [facility] [place] [address] [facility] [address] [facility] [address] 01/05/2024 10:20 AM EDT Office Visit Podiatry [facility] [place] [address] Nicki Gomez, [facility] [address] [place] [address] 01/12/2024 11:30 AM EDT Anticoagulation Pharmacy, [facility] 132 [facility] [place] [address] Yane[facility] [address] [place] [address] 01/12/2024 11:40 AM EDT Pharmacy Pharmacy, [address] [place] [address] [facility] [address] [place] [address] 01/22/2024 11:45 AM EDT Office Visit Cardiology, [facility] 132 [facility] [place] [address] Kamryn Espinoza, [address] [place] [address] 01/26/2024 11:40 AM EDT Anticoagulation Pharmacy, [facility] 132 [facility] [place] [address] [phone] [place] [address] [address] [place] [address] 03/08/2024 1:20 PM EDT Office Visit Rheumatology [facility] [address] [facility] [place] [address] Sergio Coughlin MD [address] [place] [address] 03/17/2024 2:20 PM EDT Office Visit General Internal Medicine [facility] [address] [place] [address] Ruth Brandon MD 200 [facility] [place] [address] 05/12/2024 9:30 AM EDT Office Visit Cardiology, [facility] [address] [place] [address] Ramsey Gonsalez MD [address] [place] [address] Scheduled Procedures Name Priority Associated Diagnoses Date/Ti me COLONOSCOPY FLEXIBLE PROXIMA L DIAGNOSTIC Recall Special screening for malignant neoplasm of colon Health Maintenance Due Date Last Done Comments Yi's Esophagus Surveilance 04/05/2016 04/05/2013, 04/05/2013, 03/09/2012, Additional history exists Depression Screening 09/17/2023 09/17/2022 DXA Scan 2024 2022, 04/18, 11/30/2014, Additional history exists GFR 09/22/2024 09/22/2023, 01/16, 10/17/2022, Additional history exists TSH 09/22/2024 09/22/2023, 04/18, 03/18/2021, Additional history exists Albumin/Creatinine Ratio 05/06/2025 05/06/2022, 11/0 01/2017 DTaP,Tdap,and Td Vaccines (3 - Td or Tdap) 04/29/2026 04/29/2016, 03/02/2006 Pneumococcal Vaccine: 65+ Years Completed 04/04/2015, 09/28/2012, 10/28/2006 Zoster Vaccines Completed 01/15/2019, 02/2018, 04/02/2011 VITAMIN D LEVEL ONCE IN A LIFETIME-USE SMARTSET# [id number] Completed 02/10/2023, 03/18/2021, 02/02/2020, Additional history exists Influenza Vaccine (FLU shot) Completed , 05/06/2022, 04/25/2021, Additional history exists COVID-19 Vaccine Completed 07/13/2023, 08/2021, 12/27/2021, Additional history exists GARDASIL-HPV IMMUNIZATION SERIES Aged Out No longer eligible based on patient's age to complete this topic Hepatitis B Aged Out No longer eligi ble based on patient's age to complete this topic MENINGOCOCCAL (MENACTRA/MENVEO) Aged Out No longer eligible based on patient's age to complete this topic documented as of this encounter Medical Devices Implanted Type Area Fast Food Sales Assistant Device Identifier Shelf Expiration Date Model / Serial / Lot Port 6fr Chronoflex [id number] - [id number] Implanted:Qty: 1 on 02/22/2008 at OR [facility] [place] [place] Left: Chest CR BARD : [employer]ESS SYSTEM[employer] [id number] / / [id number] documented as of this encounter Visit Diagnoses Diagnosis Atrial thrombus- Primary Other ill-defined heart disease Idiopathic cardiomyopathy (HCC) Other primary cardiomyopathies Chronic systolic congestive heart failure, NYHA class 2 (HCC) Chronic systolic heart failure 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) Thrombus due to any device, implant or graft, initial encounter documented in this encounter Advance Directives Latest Code Status on File Code Status Date Activated Date Inactivated Comments Full Code 02/22/2008 6:21 PM 02/25/2008 5:28 PM Code Status History Code Status Date Activated Date Inactivated Comments Full Code 02/22/2008 11:42 AM 02/22/2008 6:21 PM Full Code 01/14/2008 1:06 PM 01/16/2008 7:05 PM Care Teams Polymer Tester Relationship Specialty Start Date End Date Ruth Brandon MD 200 [facility], [place] [address] PCP - General Internal Medicine 04/25/21 documented as of this encounter
--- OUTSIDE RECORDS SUMMARY | 2024-05-20 21:34 | External Medical Summary | Summary of Care ---
Author Name Unknown Organization [facility] Address [address] [facility] [address] Phone [phone] Care Team Providers Care Master Control Technician Name Role Phone Ruth Brandon MD Primary Care Provider + Reason for Visit * Reason Comments Follow Up Nail care Encounter Details Date Type Department Care Team (Late st Contact Info) Description 01/05/2024 10:20 AM EDT Office Visit Podiatry [facility] [address] [place] [address] Nicki Gomez DPM 132 [facility] [place] [address] Encounter for other procedures for purposes other than remedying health state*; Thickened nails Allergies Active Allergy Reactions Criticality Noted Date Comments Adhesive Tape Other (Please comment) 01/24/2008 Welts, blisters Bee Stings 02/14/2003 Bee Venom Hives 10/17/2019 Iodine Hives 10/17/2019 Ivp Dye 01/10/1998 hives documented as of this encounter (statuses as of 01/05/2024) Medications Medication Sig Dispensed Refills Start Date [...] 100 Tablet 2 11/24/2023 04/09/20 25 Active Metoprolol Succinate ER 25 MG [...] Oral Tablet (Levoxyl)Indication s:Other specified hypothyroidism TAKE 1 TABLET BY MOUTH DAILY AT LEAST 30 MINUTES PRIOR TO FIRST MEAL OF THE DAY OR OTHER MEDICATIONS 100 Tablet 2 01/04/2024 Active documented as of this encounter (statuses as of 01/05/2024) Active Problems Problem Noted Date Diagnosed Date Chronic atrial fibrillation 12/29/2023 Atherosclerosis of aorta 06/23/2023 Atherosclerosis of coronary artery of [place] heart without angina pectoris 06/23/2023 Atrial thrombus [...] as of this encounter (statuses as of 01/05/2024) Resolved Problems Problem Noted Date Diagnosed Date [...] HX OF BREAST MALIGNANCY - ri ght, [id number], 200702/26/2011 10/04/2013 Polyneuropathy in other dise ases [...] as of this encounter (statuses as of 01/05/2024) Immunizations Name Administration Dates Next Due COVID-19 mRNA, LNP-s, No Pre serve, 2-Dose Series ([place]) 07/19/2021,11/06/2020,10/11/2020 COVID-19, LNP-s, No Preserve , Sony-sucrose, [...] as of this encounter Progress Notes * Rickey Gomezah Mariola, DPM - 01/05/2024 9:43 AM EDT Podiatry Established Note [employer] Name: Eduarda Bond : 1945 Date: 01/05/2024 REASON FOR VISIT: Routine nail care SUBJECTIVE: [...] by Uma Lin DO at [facility], path showsshort segment Barretts esophagitis repeat in 1 year Barretts esophagus 04/05/2013 UPPER GI ENDOSCOPY DIAGNOSTIC performed by Uma Lin DO at [facility], inflammation consistent with long segment barretts, repeat [...] Nursing Notes * Debbie Meraz LPN - 01/05/2024 9:16 AM EDT Pt presents for routine nail care, no pain in feet. documented in this encounter Plan of Treatment Upcoming Encounters Date Type Department Care Team (Late st Contact Info) Description 01/12/2024 11:30 AM EDT Anticoagulation Pharmacy, [address] [place] [address] [facility] [address] [address] 01/12/2024 11:40 AM EDT Pharmacy Pharmacy, [address] [place] [address] [facility] [place] [address] 01/22/2024 11:45 AM EDT Office Visit Cardiology, [facility] [place] [address] Alexis Kamryngael Lerner, [address] [place] [address] 01/26/2024 11:40 AM EDT Anticoagulation Pharmacy, [facility] 132 [facility] [place] [address] [facility] [place] [address] 03/08/2024 1:20 PM EDT Office Visit Rheumatology [address] [place], [place] [address] Sergio Coughlin MD [address] [place] [address] [place] [address] 03/17/2024 2:20 PM EDT Office Visit General Internal Medicine [facility] 200 [facility] [place], [place] [address] Ruth Brandon MD 200 [facility] [place] [address] 04/07/2024 10:40 AM EDT Office Visit Podiatry [facility] 132 [facility] [place] [address] Nicki Gomez DPM [address] [place] [address] 05/12/2024 9:30 AM EDT Office Visit Cardiology, [facility] [address] [place] [address] Ramsey Gonsalez MD [address] [place] [address] Scheduled Procedures Name Priority Associated Diagnoses Date/Ti me COLONOSCOPY FLEXIBLE PROXIMA L DIAGNOSTIC Recall Special screening for malignant neoplasm of colon Health Maintenance Due Date Last Done Comments Yi's Esophagus Surveilance 04/05/2016 04/05/2013, 04/05/2013, 03/09/2012, Additional history exists Depression Screening 09/17/2023 09/17/2022 COVID-19 Vaccine ( season) 2023 07/13/2023, 07/17/2022, 12/27/2021, Additional history exists DXA Scan 2024 2022, 04/18, 11/30/2014, Additional history exists GFR 09/22/2024 09/22/2023, 01/16, 10/17/2022, Additional history exists TSH 09/22/2024 09/22/2023, 04/18, 03/18/2021, Additional history exists Albumin/Creatinine Ratio 05/06/2025 05/06/2022, 01/2017 DTaP,Tdap,and Td Vaccines (3 - Td or Tdap) 04/29/2026 04/29/2016, 03/02/2006 Pneumococcal Vaccine: 65+ Years Completed 04/04/2015, 09/28/2012, 10/28/2006 Zoster Vaccines Completed 01/15/2019, 02/2018, 04/02/2011 VITAMIN D LEVEL ONCE IN A LIFETIME-USE SMARTSET# [id number] Completed 02/10/2023, 03/18/2021, 02/02/2020, Additional history exists [...] this encounter Medical Devices Implanted Type Area Crime Prevention Police Officer Device Identifier Shelf Expiration Date Model / Serial / Lot Port 6fr Chronoflex [id number] - [id number] Implanted:Qty: 1 on 02/22/2008 at OR [facility] [place] Left: Chest CR BARD : [employer]ESS SYSTEM[employer] [id number] / / [id number] documented as of this encounter Visit Diagnoses [...] 1:06 PM 01/16/2008 7:05 PM Care Teams Master Control Technician Relationship Specialty Start Date End Date Ruth Brandon MD 200 [place] [address] PCP - General Internal Medicine 04/25/21 documented as of this encounter
--- OUTSIDE RECORDS SUMMARY | 2024-05-20 21:34 | External Medical Summary | Summary of Care ---
Author Name Unknown Organization [facility] Address [address] [place] [address] Phone [phone] Care Team Providers Care Finish Filer Name Role Phone Ruth Brandon MD Primary Care Provider + Reason for Visit * Reason Comments Medication Refill Encounter Details Date Type Department Care Team (Late st Contact Info) Description 01/04/2024 Refill General Internal Medicine [facility] 200 [facility] [place] W[place] [phone] Ruth Brandon MD 200 [facility] [address] Other specified hypothyroidism Allergies Active Allergy Reactions Criticality Noted Date Comments Adhesive Tape Other (Please comment) 01/24/2008 Welts, blisters Bee Stings 02/14/2003 Bee Venom Hives 10/17/2019 Iodine Hives 10/17/2019 Ivp Dye 01/10/1998 hives documented as of this encounter (statuses as of 01/04/2024) Medications Medication Sig Dispensed Refills Start Date [...] the morning. 100 Tablet 3 4 Active Levothyroxine Sodium 25 MCG Oral Tablet (Levoxyl)Indicatio ns:Other specified hypothyroidism TAKE 1 TABLET BY MOUTH DAILY AT LEAST 30 MINUTES PRIOR TO FIRST MEAL OF THE DAY OR OTHER MEDICATIONS 100 Tablet 2 4 Active Levothyroxine Sodium 25 MCG Oral Tablet (Levoxyl)Indicatio ns:Other specified hypothyroidism TAKE 1 TABLET BY MOUTH DAILY AT LEAST 30 MINUTES PRIOR TO FIRST MEAL OF THE DAY OR OTHER MEDICATIONS 100 Tablet 1 3 01/04/20 24 Discontinu ed(Refill) documented as of this encounter (statuses as of 01/04/2024) Active Problems Problem Noted Date Diagnosed Date Chronic atrial fibrillation 12/29/2023 Atherosclerosis of aorta 06/23/2023 Atherosclerosis of coronary artery of [place] heart without angina pectoris 06/23/2023 Atrial [...] as of this encounter (statuses as of 01/04/2024) Resolved Problems Problem Noted Date Diagnosed Date [...] HX OF BREAST MALIGNANCY - ri ght, [id number], 200702/26/2011 10/04/2013 Polyneuropathy in other dise ases [...] as of this encounter (statuses as of 01/04/2024) Immunizations Name Administration Dates Next Due COVID-19 mRNA, LNP-s, No Pre serve, 2-Dose Series ([place] [place]) 07/19/2021,11/06/2020,10/11/2020 COVID-19, LNP-s, No Preserve , Sony-sucrose, Ages 12+ (Pfizer) 12/27/2021 COVID-19, MRNA-LNP, 23-24, P F, 30 MCG/0.3 mL, 12 YRS AND ABOVE, IM ([facility]) 07/13/2023 Covid-19, Mrna, Lnp-s, Pf, B ivalent, 30 Mcg, IM, 12 yrs and above ([facility] [place]) 07/17/2022 Pneumococcal Conjugate Vacc, 13 Valent (Prevnar) [...] encounter Miscellaneous Notes * Telephone Encounter - Kenzie Mcneal [facility] - 01/04/2024 9:01 PM EDTSigned Prescriptions: Disp Refills Levothyroxine Sodium 25 MCG Oral Tablet (L*100 Ta*2 Sig: TAKE 1 TABLET BY MOUTH DAILY AT LEAST 30 MINUTES PRIOR TO FIRST MEAL OF THE DAY OR OTHER MEDICATIONSAuthorizing Provider: RUTH BRANDON User: KENZIE MCNEAL documented in this encounter Plan of Treatment Upcoming Encounters Date Type Department Care Team (Late st Contact Info) Description 01/05/2024 8:50 AM EDT Anticoagulation Pharmacy, [facility] 132 [place] [address] [facility] 132 [place] [address] 01/05/2024 10:20 AM EDT Office Visit Podiatry [facility] 132 [place] [address] Nicki Gomez DPM 132 [place] [address] 01/12/2024 11:30 AM EDT Anticoagulation Pharmacy, [facility] 132 [facility] [place], [place] [address] [place] [address] [facility] [place] [address] 01/12/2024 11:40 AM EDT Pharmacy Pharmacy, [facility] 132 [facility] [place], [place] [address] [facility] 132 [facility] [place] [address] 01/22/2024 11:45 AM EDT Office Visit Cardiology, [facility] 132 [facility] [place], [place] [address] Kamryn Espinoza, [address] [place] [address] 01/26/2024 11:40 AM EDT Anticoagulation Pharmacy, [facility] 132 [facility] [place], [place] [address] [facility] 132 [facility] [place], [place] [address] 03/08/2024 1:20 PM EDT Office Visit Rheumatology [place] [address] [facility] [place], [place] [address] Sergio Coughlin MD [facility] [place] [address] 03/17/2024 2:20 PM EDT Office Visit General Internal Medicine [facility] [place] [address] [place], [place] [address] Ruth Brandon MD [address] [place], [place] [address] 05/12/2024 9:30 AM EDT Office Visit Cardiology, [facility] [address] [place] [address] Ramsey Gonsalez MD [address] [place] [address] Scheduled Procedures Name Priority Associated Diagnoses Date/Ti [...] D LEVEL ONCE IN A LIFETIME-USE SMARTSET# [id number] Completed 02/10/2023, 03/18/2021, 02/02/2020, Additional history exists [...] this encounter Medical Devices Implanted Type Area Bessemer Converter Operator Device Identifier Shelf Expiration Date Model / Serial / Lot Port 6fr Chronoflex [id number] - [id number] Implanted:Qty: 1 on 02/22/2008 at OR [facility] [place] Left: Chest CR BARD : ACCESS SYSTEMS [id number] / / [id number] documented as of this encounter Visit Diagnoses Diagnosis Other specified hypothyroidism documented in this encounter Advance Directives * Full Code (Latest Code Status on File) Date Activated Date Inactivated Comments 02/22/2008 6:21 PM 02/25/2008 5:28 PM * Full Code Date Activated Date Inactivated Comments 02/22/2008 11:42 AM 02/22/2008 6:21 PM * Full Code Date Activated Date Inactivated Comments 01/14/2008 1:06 PM 01/16/2008 7:05 PM Care Teams Finish Filer Relationship Specialty Start Date End Date Ruth Brandon MD [address] [place] [address], [place] [address] PCP - General Internal Medicine 04/25/21 documented as of this encounter
--- OUTSIDE RECORDS SUMMARY | 2024-05-20 21:34 | External Medical Summary | Summary of Care ---
Author Name Unknown Organization [facility] Address [address] [place] [place] [facility] [place] [address] Phone [phone] Care Team Providers Care Divider Operator Name Role Phone Ruth Brandon MD Primary Care Provider + Reason for Visit * Reason Comments Defibrillator Clinic Wound check Encounter Details Date Type Department Care Team (Latest Contact Info) Description 01/01/2024 10:00 AM EDT Cardiac Studies Cardiology, [facility] 132 [place] [address] [place], Pacer Clinic [facility] 132 [place] [address] Idiopathic cardiomyopathy (HCC)*; ICD (implantable cardioverter-defibrill ator), biventricular, in situ; Chronic systolic congestive heart failure, NYHA class 2 (HCC) Allergies Active Allergy Reactions Criticality Noted Date Comments Adhesive Tape Other (Please comment) 01/24/2008 Welts, blisters Bee Stings 02/14/2003 Bee Venom Hives 10/17/2019 Iodine Hives 10/17/2019 Ivp Dye 01/10/1998 hives documented as of this encounter (statuses as of 01/25/2024) Medications Medication Sig Dispensed Refills Start Date [...] Oral, 5 days a week tu, wed, thur, sat, sun, Reported on 12/29/2023 Pantoprazole [...] as of this encounter (statuses as of 01/25/2024) Active Problems Problem Noted Date Diagnosed Date Chronic atrial fibrillation 12/29/2023 Atherosclerosis of aorta 06/23/2023 Atherosclerosis of coronary artery of [place] heart without angina pectoris 06/23/2023 Atrial [...] as of this encounter (statuses as of 01/25/2024) Resolved Problems Problem Noted Date Diagnosed Date [...] HX OF BREAST MALIGNANCY - ri ght, [id number], 200702/26/2011 10/04/2013 Polyneuropathy in other dise ases [...] as of this encounter (statuses as of 01/25/2024) Immunizations Name Administration Dates Next Due COVID-19 mRNA, LNP-s, No Pre serve, 2-Dose Series (Showpitch) 07/19/2021,11/06/2020,10/11/2020 COVID-19, LNP-s, No Preserve , Sony-sucrose, Ages 12+ (Pfizer) 12/27/2021 COVID-19, MRNA-LNP, 23-24, P F, 30 MCG/0.3 mL, 12 YRS AND ABOVE, IM (Acceleron [employer]arma-Comirnat) 07/13/2023 Covid-19, Mrna, Lnp-s, Pf, B ivalent, 30 Mcg, IM, 12 yrs and above (Showpitch) 07/17/2022 Pneumococcal Conjugate Vacc, 13 Valent (Prevnar) [...] money to buy more. Never true 09/17/19 Within the past 12 months, t he [...] as of this encounter Progress Notes * Swati Nunez LPN - 01/01/2024 10:35 AM EDT Duoderm dressing removed. Left pectoral device pocket appears to be healing. No drainage is noted. Incision edges are in approximation. No ecchymosis is noted. Area is soft to palpation. Area cleansed with chlora prep. After dry Sure prep applied to surrounding skin avoiding incision. Steri strips applied. Patient asked for clarification on medications started/changed during hospital admission. Provider consulted for clarification documented in this encounter Plan of Treatment Upcoming Encounters Date Type Department Care Team (Late st Contact Info) Description 01/26/2024 11:40 AM EDT Anticoagulation Pharmacy, [facility] 132 [facility] [place] [address] [facility] [address] [place] [address] 03/08/2024 1:20 PM EDT Office Visit Rheumatology [place] [address] [address] [place] [address] Sergio Coughlin MD [address] [place] [address] 03/17/2024 2:20 PM EDT Office Visit General Internal Medicine [facility] 200 [facility] [place] [address] Ruth Brandon MD 200 [facility] [place] [address] 04/07/2024 10:40 AM EDT Office Visit Podiatry [facility] [address] [place] [address] Nicki Gomez DPM [address] [place] [address] 05/12/2024 9:30 AM EDT Office Visit Cardiology, [facility] [address] [place] [address] Ramsey Gonsalez MD [address] [place] [address] Scheduled Orders Name Type Priority Associated Diagnoses Orde r Schedule POSTOP F-UP VISIT IN GLOBAL Procedures Routine Idiopathic cardiomyopathy (HCC) ICD (implantable cardioverter-defibrillator ), biventricular, in situ Chronic systolic congestive heart failure, NYHA class 2 (HCC) Ordered: 01/01/2024 Scheduled Procedures Name Priority Associated Diagnoses Date/Ti [...] D LEVEL ONCE IN A LIFETIME-USE SMARTSET# [id number] Completed 02/10/2023, 03/18/2021, 02/02/2020, Additional history exists [...] this encounter Medical Devices Implanted Type Area Network Admin Device Identifier Shelf Expiration Date Model / Serial / Lot Port 6fr Chronoflex [id number] - [id number] [place]ed:Q[place] 1 [place]22/[place] [facility] [place]: Chest CR BARD : ACCESS SYSTEMS [id number] / / [id number] documented as of this encounter Visit Diagnoses Diagnosis Idiopathic cardiomyopathy (HCC)- Primary Other primary cardiomyopathies ICD (implantable cardioverter-defibrillator), biventricular, in situ Chronic systolic congestive heart failure, NYHA class 2 (HCC) Chronic systolic heart failure documented in this encounter Advance Directives * Full Code (Latest Code Status on File) Date Activated Date Inactivated Comments 02/22/2008 6:21 PM 02/25/2008 5:28 PM * Full Code Date Activated Date Inactivated Comments 02/22/2008 11:42 AM 02/22/2008 6:21 PM * Full Code Date Activated Date Inactivated Comments 01/14/2008 1:06 PM 01/16/2008 7:05 PM Care Teams Divider Operator Relationship Specialty Start Date End Date Ruth Brnadon MD [address] [place] [address] PCP - General Internal Medicine 04/25/21 documented as of this encounter
--- OUTSIDE RECORDS SUMMARY | 2024-05-20 21:34 | External Medical Summary ---
Author Name Unknown Address Unknown Organization K0G:LABORATORY [facility] [address] - [address] [place] [address] Laboratory Report Ordering Provider Test Date Status RIYA RODRIGUEZ 01/12/2024 11:22:45 Final Therapeutic ranges for non-o perative patients:
Prophylaxsis/treatment of DVT: (Range:2.0-3.0)
Treatment of pulmonary embolism:(Range:2.0-3.0)
Prevention of systemic embolism from:
-tissue heart valves
-acute myocardial infarction
-valvular heart disease
-atrial fibrillation
(Range: 2.0-3.0)
Mechanical prosthetic valves: (Range: 2.5-3.5) Observation Date Value Abnormality Reference (Units ) Status INR in Capillary blood by Coagulation assay 01/12/2024 11:22:45 1.5 (INR) Final Performing Location [facility] 0 - [address] [place] [address]
--- OUTSIDE RECORDS SUMMARY | 2024-05-20 21:34 | External Medical Summary | Summary of Care ---
Author Name Unknown Organization [facility] Address [address] [facility] [address] Phone [phone] Care Team Providers Care Tour Sales Representative Name Role Phone Ruth Brandon MD Primary Care Provider + Reason for Visit * Reason Comments Dosage Adjustment In Person (Anticoag Cl inic) Encounter Details Date Type Department Care Team (Latest Contact Info) Description 01/26/2024 11:40 AM EDT Anticoagulation Pharmacy, [facility] 132 [facility] [place] [address] [facility] 132 [facility] [place] [address] Anticoagulation management encounter*; Atrial thrombus; Thrombus due to any device, implant or graft, initial encounter; manager intermediate current use of anticoagulant therapy Allergies Active [...] HX OF BREAST MALIGNANCY - ri ght, [id number], 200702/26/2011 10/04/2013 Polyneuropathy in other dise ases [...] mRNA, LNP-s, No Pre serve, 2-Dose Series (KnexxLocal) 07/19/2021,11/06/2020,10/11/2020 COVID-19, LNP-s, No Preserve , Sony-sucrose, [...] Additional Dosing Information: Description Fax results to [phone] for cataract surgery Tete Guerrero RPh Clinical Pharmacist 01/26/2024, 11:51 AM documented in this encounter Plan of Treatment Upcoming Encounters Date Type Department Care Team (Late st Contact Info) Description 02/09/2024 11:40 AM EDT Anticoagulation Pharmacy, [facility] 132 [facility] [place] [address] [facility] [place] [address] 03/08/2024 1:20 PM EDT Office Visit Rheumatology [facility] 2520 [facility] [place] [address] Sergio Coughlin MD 2520 [facility] [place] [address] 03/17/2024 2:20 PM EDT Office Visit General Internal Medicine [facility] 200 [facility] [place] [address] Ruth Brandon MD 200 [facility] [place] [address] 04/07/2024 10:40 AM EDT Office Visit Podiatry [facility] 132 [facility] [place] [address] Nicki Gomez DPM [address] [place] [address] 05/12/2024 9:30 AM EDT Office Visit Cardiology, [facility] [address] [place] [address] Ramsey Gonsalez MD [address] [place] [address] Scheduled Procedures Name Priority Associated Diagnoses Date/Ti [...] D LEVEL ONCE IN A LIFETIME-USE SMARTSET# [id number] Completed 02/10/2023, 03/18/2021, 02/02/2020, Additional history exists [...] this encounter Medical Devices Implanted Type Area Scrum Coach Device Identifier Shelf Expiration Date Model / Serial / Lot Port 6fr Chronoflex [id number] - [id number] Implanted:Qty: 1 on 02/22/2008 at [place] [facility] [place] Left: Chest CR BARD : ACCESS SYSTEMS [id number] / / [id number] documented as of this encounter Procedures Procedure Name Priority Date/Time Associated Diagnosis Comments INR FINGERSTICK, POINT OF CARE STAT 01/26/2024 11:38 AM EDT Atrial thrombus Thrombus due to any device, implant or graft, initial encounter Anticoagulation management encounter correction current use of anticoagulant therapy documented in [...] ARE TEST DOCKED DEVICE UNSOLICITED RESULTS LABORATORY [facility] 57[address] [place] [address] documented in this encounter Visit Diagnoses Diagnosis Anticoagulation management encounter- Primary Encounter for therapeutic drug monitoring Atrial thrombus Other ill-defined heart disease Thrombus due to any device, implant or graft, initial encounter manager intermediate current use of anticoagulant therapy documented in this encounter Advance Directives * Full Code (Latest Code Status on File) Date Activated Date Inactivated Comments 02/22/2008 6:21 PM 02/25/2008 5:28 PM * Full Code Date Activated Date Inactivated Comments 02/22/2008 11:42 AM 02/22/2008 6:21 PM * Full Code Date Activated Date Inactivated Comments 01/14/2008 1:06 PM 01/16/2008 7:05 PM Care Teams Tour Sales Representative Relationship Specialty Start Date End Date Ruth Brandon MD 200 [facility] [place] [address] PCP - General Internal Medicine 04/25/21 documented as of this encounter"
--- OUTSIDE RECORDS SUMMARY | 2024-05-20 21:34 | External Medical Summary | Summary of Care ---
Author Name Unknown Organization [facility] Address [address] [facility] [place] [address] Phone [phone] Care Team Providers Care Glass Ribbon Machine Operator Assistant Name Role Phone Ruth Brandon MD Primary Care Provider + Encounter Details Date Type Department Care Team (Late st Contact Info) Description 01/13/2024 10:30 AM EDT Scheduled Telephone Care Coordination and Integration [address] [place] [address] Brayan Drake [facility] Magistrate [address] [place], [place] [id number] Allergies Active Allergy Reactions Criticality Noted Date Comments Adhesive Tape Other (Please comment) 01/24/2008 Welts, blisters Bee Stings 02/14/2003 Bee Venom Hives 10/17/2019 Iodine Hives 10/17/2019 Ivp Dye 01/10/1998 hives documented as of this encounter (statuses as of 01/13/2024) Medications Medication Sig Dispensed Refills Start Date [...] as of this encounter (statuses as of 01/13/2024) Active Problems Problem Noted Date Diagnosed Date Chronic atrial fibrillation 12/29/2023 Atherosclerosis of aorta 06/23/2023 Atherosclerosis of coronary artery of [place] heart without angina pectoris 06/23/2023 Atrial thrombus [...] as of this encounter (statuses as of 01/13/2024) Resolved Problems Problem Noted Date Diagnosed Date [...] HX OF BREAST MALIGNANCY - ri ght, [id number], 200702/26/2011 10/04/2013 Polyneuropathy in other dise ases [...] as of this encounter (statuses as of 01/13/2024) Immunizations Name Administration Dates Next Due COVID-19 mRNA, LNP-s, No Pre serve, 2-Dose Series (White Sky) 07/19/2021,11/06/2020,10/11/2020 COVID-19, LNP-s, No Preserve , Sony-sucrose, Ages 12+ (White Sky) 12/27/2021 COVID-19, MRNA-LNP, 23-24, P F, 30 [...] Progress Notes * Brayan Drake [facility] Magistrate - 01/13/2024 10:49 AM EDT Telemedicine visit: No [facility] Magistrate (CASIMIRO) documentation: CHW follow up phone call for RNCM. Patient reports that she just returned home from having cataract surgery this morning. She reports that everything went well there and she was given instructions on when to remove the dressing today and then to start eye drops. Patient reports that her incision from her pacemaker surgery seems to be healing well also. She reports no drainage and the black and blue area is clearing up. She said the butterflies have not fallen off yet. She denies any signs of infection. Patient denies any dizziness or weakness. She said she did laundry yesterday and was up and down the steps 5-6 times, so she is getting exercise as well. She said she has a follow up with Dr. Alaniz 01/22/24. Patient reports to be weighing herself daily and is down to 172. She said she had been down to 169 at one point, but that was prior to Easter and eating candy and things. Patient said her weight is slowly dropping back down. Patient denies any swelling in her legs or ankles. She reports to elevating them when she sits. Shesaid she also was able to get good rest last evening. Patient reports to having her RNCM's phone number. She is agreeable to a follow up phone call in 1 week. Norm Drake Community Health Worker Lead [facility] [place] [phone] documented in this encounter Plan of Treatment Upcoming Encounters Date Type Department Care Team (Late st Contact Info) Description 01/22/2024 11:45 AM EDT Office Visit Cardiology, [address] [place] [address] Kamryn Espinoza, DO [address] [place] [address] 01/26/2024 11:40 AM EDT Anticoagulation Pharmacy, [facility] [address] [place] [address] [facility] 132 [facility] [place] [address] 03/08/2024 1:20 PM EDT Office Visit Rheumatology [address] [place] [address] Sergio Coughlin MD [address] [place] [address] [place] [address] 03/17/2024 2:20 PM EDT Office Visit General Internal Medicine [facility] 200 [facility] [place] [address] Ruth Brandon MD 200 [facility] [place] [address] 04/07/2024 10:40 AM EDT Office Visit Podiatry [facility] [address] [place] [address] Nicki Gomez DPM [address] [place] [address] 05/12/2024 9:30 AM EDT Office Visit Cardiology, [facility] [address] [place] [address] Ramsey Gonsalez MD [address] [place] [address] Scheduled Procedures Name Priority Associated Diagnoses Date/Ti [...] D LEVEL ONCE IN A LIFETIME-USE SMARTSET# [id number] Completed 02/10/2023, 03/18/2021, 02/02/2020, Additional history exists [...] this encounter Medical Devices Implanted Type Area Christmas Tree Contractor Device Identifier Shelf Expiration Date Model / Serial / Lot Port 6fr Chronoflex [id number] - [id number] [place]ed:[place] 1 [place] [facility] [place] Chest CR BARD : ACCESS SYSTEMS [id number] / / [id number] documented as of this encounter Advance Directives * Full Code (Latest Code Status on File) Date Activated Date Inactivated Comments 02/22/2008 6:21 PM 02/25/2008 5:28 PM * Full Code Date Activated Date Inactivated Comments 02/22/2008 11:42 AM 02/22/2008 6:21 PM * Full Code Date Activated Date Inactivated Comments 01/14/2008 1:06 PM 01/16/2008 7:05 PM Care Teams Glass Ribbon Machine Operator Assistant Relationship Specialty Start Date End Date Ruth Brandon MD 200 [place] [address] PCP - General Internal Medicine 04/25/21 documented as of this encounter
--- OUTSIDE RECORDS SUMMARY | 2024-05-20 21:34 | External Medical Summary | Summary of Care ---
Author Name Unknown Organization [facility] Address [address] [facility] [address] Phone [phone] Care Team Providers Care Linecasting Machine Keyboard Operator Name Role Phone Ruth Brandon MD Primary Care Provider + Reason for Visit * Reason Comments Dosage Adjustment In Person (Anticoag Cl inic) Encounter Details Date Type Department Care Team (Latest Contact Info) Description 01/05/2024 8:50 AM EDT Anticoagulation Pharmacy, [facility] 132 [facility] [place] [address] [facility] 132 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 Allergies Active [...] aorta 06/23/2023 Atherosclerosis of coronary artery of [place] heart without angina pectoris 06/23/2023 Atrial thrombus [...] HX OF BREAST MALIGNANCY - ri ght, [id number], 200702/26/2011 10/04/2013 Polyneuropathy in other dise ases [...] mRNA, LNP-s, No Pre serve, 2-Dose Series (Moprise) 07/19/2021,11/06/2020,10/11/2020 COVID-19, LNP-s, No Preserve , Sony-sucrose, [...] Progress Notes * Tete Guerrero RPh - 01/05/2024 8:53 AM EDT Medication Therapy Disease Management - Anticoagulation Patient: Eduarda Bond | : 1945 Subjective Patient-Reported Symptoms: Patient Findings Positives: Change in medications (amiodarone start) Negatives: Signs/symptoms of thrombosis, Signs/symptoms of bleeding, Change in health, Change in alcohol use, Change in activity, Upcoming invasive procedure, Missed doses, Extra doses, Change in diet/appetite, Bruising Objective Current Warfarin Dose As of 01/05/2024 Warfarin maintenance plan: 0 mg every Mon, Fri; 2.5 mg (5 mg x 0.5) all other days INR Result As of 01/05/2024 INR goal: 2.0-3.0 INR used for dosin.6 (01/05/2024) Assessment & Plan Warfarin Plan As of 01/05/2024 Full warfarin instructions: 01/09: Hold; Otherwise 0 mg every Mon, Fri; 2.5 mg all other days Next INR check: 01/12/2024 Repeat PT/INR in 1 week(s) Weekly dose: not changed, will hold on 01/09 prior to procedure to ensure INR within goal range for procedure on 01/12 Additional Dosing Information: Tete Guerrero RPh Clinical Pharmacist 01/05/2024, 9:01 AM documented in this encounter Plan of Treatment Upcoming Encounters Date Type Department Care Team (Late st Contact Info) Description 01/05/2024 10:20 AM EDT Office Visit Podiatry [facility] [place] [address] Patricia Nickiarianne Garnett, [facility] [address] [place], [place] [address] Arrived 01/12/2024 11:30 AM EDT Anticoagulation Pharmacy, [address] [place] [address] [facility] [address] [place], [place] [address] 01/12/2024 11:40 AM EDT Pharmacy Pharmacy, [facility] 132 [facility] [place] [address] [facility] [address] [place], [place] [address] 01/22/2024 11:45 AM EDT Office Visit Cardiology, [facility] [address] [facility] [place] [address] Kamryn Espinoza, DO 400 [facility] [place] [address] 01/26/2024 11:40 AM EDT Anticoagulation Pharmacy, [facility] [place] [address] [facility] [place] [place] [address] 03/08/2024 1:20 PM EDT Office Visit Rheumatology [place] [address] [facility] [place] [address] Sergio Coughlin MD [facility] [place] [address] 03/17/2024 2:20 PM EDT Office Visit General Internal Medicine [facility] [place] [address] [place] [address] Ruth Brandon MD [address] [place] [address] 05/12/2024 9:30 AM EDT Office Visit Cardiology, [facility] [address] [place] [address] Ramsey Gonsalez MD [address] [place] [address] Scheduled Procedures Name Priority Associated Diagnoses Date/Ti [...] D LEVEL ONCE IN A LIFETIME-USE SMARTSET# [id number] Completed 02/10/2023, 03/18/2021, 02/02/2020, Additional history exists [...] this encounter Medical Devices Implanted Type Area Risk Manager Device Identifier Shelf Expiration Date Model / Serial / Lot Port 6fr Chronoflex [id number] - [id number] Implanted:Qty: 1 on 02/22/2008 at [facility] Left: Chest CR BARD : ACCESS SYSTEMS [id number] / / [id number] documented as of this encounter Procedures Procedure Name Priority Date/Time Associated Diagnosis Comments INR FINGERSTICK, POINT OF CARE STAT 01/05/2024 8:57 AM EDT Atrial thrombus Thrombus due to any device, implant or graft, initial encounter 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 documented in this encounter Results * INR FINGERSTICK, POINT OF CARE (01/05/2024 8:57 AM EDT) Fingerstick INR 2.6 INR 9:00 AM EDT [facility] [place] [facility] Blood 01/05/2024 8:57 AM EDT 01/05/2024 9:00 AM EDT Narrative [facility] [facility] - 01/05/2024 9:00 AM EDT Therapeutic ranges for non-operative patients: Prophylaxsis/treatment of DVT: (Range:2.0-3.0) Treatment of pulmonary embolism:(Range:2.0-3.0) Prevention of systemic embolism from: -tissue heart valves -acute myocardial infarction -valvular heart disease -atrial fibrillation (Range: 2.0-3.0) Mechanical prosthetic valves: (Range: 2.5-3.5) Tete Guerrero [facility] POINT OF C ARE TEST DOCKED DEVICE UNSOLICITED RESULTS [facility] [facility] 132 [facility] [place] [address] documented in this encounter Visit Diagnoses Diagnosis Atrial thrombus- Primary Other ill-defined heart disease Thrombus due to any device, implant or graft, initial encounter Anticoagulation management encounter Encounter for therapeutic drug monitoring 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 current use of anticoagulant therapy documented in this encounter Advance Directives * Full Code (Latest Code Status on File) Date Activated Date Inactivated Comments 02/22/2008 6:21 PM 02/25/2008 5:28 PM * Full Code Date Activated Date Inactivated Comments 02/22/2008 11:42 AM 02/22/2008 6:21 PM * Full Code Date Activated Date Inactivated Comments 01/14/2008 1:06 PM 01/16/2008 7:05 PM Care Teams Linecasting Machine Keyboard Operator Relationship Specialty Start Date End Date Ruth Brandon MD [address] [place] [address], [place] [address] PCP - General Internal Medicine 04/25/21 documented as of this encounter"
--- OUTSIDE RECORDS SUMMARY | 2024-05-20 21:34 | External Medical Summary ---
Author Name Unknown Address Unknown Organization K0G:LABORATORY [facility] [address] [place] [address] Laboratory Report Ordering Provider Test Date Status RIYA RODRIGUEZ 01/05/2024 08:57:01 Final Therapeutic ranges for non-o perative patients:
Prophylaxsis/treatment of DVT: (Range:2.0-3.0)
Treatment of pulmonary embolism:(Range:2.0-3.0)
Prevention of systemic embolism from:
-tissue heart valves
-acute myocardial infarction
-valvular heart disease
-atrial fibrillation
(Range: 2.0-3.0)
Mechanical prosthetic valves: (Range: 2.5-3.5) Observation Date Value Abnormality Reference (Units ) Status INR in Capillary blood by Coagulation assay 01/05/2024 08:57:01 2.6 (INR) Final Performing Location LABORATORY [facility] 57[address] 0 - [address] [place] [address]
--- OUTSIDE RECORDS SUMMARY | 2024-05-20 21:34 | External Medical Summary | Summary of Care ---
Author Name Unknown Organization [facility] Address [address] [facility] [place] [address] Phone [phone] Care Team Providers Care Calender Machine Operator Name Role Phone Ruth Brandon MD Primary Care Provider + Reason for Visit * Reason Comments Dosage Adjustment In Person (Anticoag Cl inic) Encounter Details Date Type Department Care Team (Latest Contact Info) Description 01/12/2024 11:30 AM EDT Anticoagulation Pharmacy, [facility] 132 [facility] [place] [address] [facility] 132 [facility] [place] [address] Atrial thrombus*; Thrombus due to any device, implant or graft, initial encounter; Anticoagulation management encounter; long-term current use of anticoagulant therapy Allergies Active [...] aorta 06/23/2023 Atherosclerosis of coronary artery of [place] heart without angina pectoris 06/23/2023 Atrial thrombus [...] HX OF BREAST MALIGNANCY - ri ght, [id number], 200702/26/2011 10/04/2013 Polyneuropathy in other dise ases [...] mRNA, LNP-s, No Pre serve, 2-Dose Series ([facility]) 07/19/2021,11/06/2020,10/11/2020 COVID-19, LNP-s, No Preserve , Sony-sucrose, [...] this encounter Progress Notes * Tete Guerrero [facility] - 01/12/2024 12:33 PM EDT Images from the original note were not included. Medication Therapy Disease Management - Anticoagulation Patient: Eduarda Bond | : 1945 Subjective Patient-Reported Symptoms: Objective Current Warfarin Dose As of 01/12/2024 Warfarin maintenance plan: 0 mg every Mon, Fri; 2.5 mg (5 mg x 0.5) all other days INR Result As of 01/12/2024 INR goal: 2.0-3.0 INR used for dosin.5 (01/12/2024) Assessment & Plan Warfarin Plan As of 01/12/2024 Full warfarin instructions: 01/23: Hold; Otherwise 0 mg every Mon, Fri; 2.5 mg all other days Next INR check: 01/26/2024 Repeat PT/INR in 2 week(s) Weekly dose: not changed Additional Dosing Information: Description Fax results to [phone] for cataract surgery Tete Guerrero [facility] Clinical Pharmacist 01/12/2024, 12:33 PM documented in this encounter Plan of Treatment Upcoming Encounters Date Type Department Care Team (Late st Contact Info) Description 01/22/2024 11:45 AM EDT Office Visit Cardiology, [facility] 132 [facility] [place] [address] Kamryn Espinoza DO [address] [place] [address] [place] [id number] 01/26/2024 11:40 AM EDT Anticoagulation Pharmacy, [facility] 132 [facility] [place] [address] [facility] [place] [address] 03/08/2024 1:20 PM EDT Office Visit Rheumatology [place] [id number] [facility] [place] [address] Sergio Coughlin MD [address] [facility] [place] [address] 03/17/2024 2:20 PM EDT Office Visit General Internal Medicine [facility] 200 [facility] [place] [address] Ruth Brandon MD 200 [facility] [place] [address] 04/07/2024 10:40 AM EDT Office Visit Podiatry [facility] 132 [facility] [place] [address] Nicki Gomez DPM [address] [place] [address] 05/12/2024 9:30 AM EDT Office Visit Cardiology, [facility] [address] [place] [address] Ramsey Gonsalez MD [address] [place] [address] Scheduled Procedures Name Priority Associated Diagnoses Date/Ti [...] D LEVEL ONCE IN A LIFETIME-USE SMARTSET# [id number] Completed 02/10/2023, 03/18/2021, 02/02/2020, Additional history exists [...] this encounter Medical Devices Implanted Type Area Entertainment Director Device Identifier Shelf Expiration Date Model / Serial / Lot Port 6fr Chronoflex [id number] - [id number] Implanted:Qty: 1 on 02/22/2008 at [place] [facility] Left: Chest CR BARD : ACCESS SYSTEMS [id number] / / [id number] documented as of this encounter Procedures Procedure Name Priority Date/Time Associated Diagnosis Comments INR FINGERSTICK, POINT OF CARE STAT 01/12/2024 11:22 AM EDT Atrial thrombus Thrombus due to any device, implant or graft, initial encounter Anticoagulation 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 encounter extermination supervisor current use of anticoagulant therapy documented in this encounter Results * INR FINGERSTICK, POINT OF CARE (01/12/2024 11:22 AM EDT) Fingerstick INR 1.5 INR 12:30 PM EDT [facility]10 Blood 01/12/2024 11:2 2 AM EDT 01/12/2024 12:30 PM EDT Narrative [facility]10 - 01/12/2024 12:30 PM EDT Therapeutic ranges for non-operative patients: Prophylaxsis/treatment of DVT: (Range:2.0-3.0) Treatment of pulmonary embolism:(Range:2.0-3.0) Prevention of systemic embolism from: -tissue heart valves -acute myocardial infarction -valvular heart disease -atrial fibrillation (Range: 2.0-3.0) Mechanical prosthetic valves: (Range: 2.5-3.5) Tete Guerrero [facility] LAB POINT OF C ARE TEST DOCKED DEVICE UNSOLICITED RESULTS [facility] 57-10 [address] [place] [address] documented in this encounter Visit Diagnoses Diagnosis Atrial thrombus- Primary Other ill-defined heart disease Thrombus due to any device, implant or graft, initial encounter Anticoagulation management encounter Encounter for therapeutic drug monitoring long-term current use of anticoagulant therapy documented in this encounter Advance Directives * Full Code (Latest Code Status on File) Date Activated Date Inactivated Comments 02/22/2008 6:21 PM 02/25/2008 5:28 PM * Full Code Date Activated Date Inactivated Comments 02/22/2008 11:42 AM 02/22/2008 6:21 PM * Full Code Date Activated Date Inactivated Comments 01/14/2008 1:06 PM 01/16/2008 7:05 PM Care Teams Calender Machine Operator Relationship Specialty Start Date End Date Ruth Brandon MD [facility] [address] PCP - General Internal Medicine 04/25/21 documented as of this encounter"
--- OUTSIDE RECORDS SUMMARY | 2024-05-20 21:34 | External Medical Summary | Summary of Care ---
Author Name Unknown Organization [facility] Address [address] [facility] [place] [address] Phone [phone] Care Team Providers Care Cold Type Artist Name Role Phone Ruth Brandon MD Primary Care Provider + Reason for Visit * Reason Comments Defibrillator Clinic Wound check Encounter Details Date Type Department Care Team (Latest Contact Info) Description 01/01/2024 10:00 AM EDT Cardiac Studies Cardiology, [facility] 132 [facility] [place] [address] [place], Pacer Clinic [facility] 132 [place] [address] Idiopathic cardiomyopathy (HCC)*; ICD (implantable cardioverter-defibrill ator), [...] mg Oral, 5 days a week tu, thu, thur, sat, sun, Reported on 12/29/2023 [...] THE EVENING 450 Tablet 3 3 01/01/20 Discontinu ed(Refill) Amiodarone HCl 200 MG Oral Tablet (Cordarone) Take 1 Tablet by mouth daily with breakfast. 0 01/01/20 Discontinu ed(Refill) documented as of this encounter (statuses as of 01/01/2024) Active Problems Problem Noted Date Diagnosed Date Chronic atrial fibrillation 12/29/2023 Atherosclerosis of aorta 06/23/2023 Atherosclerosis of coronary artery of [place] heart without angina pectoris 06/23/2023 Atrial thrombus [...] HX OF BREAST MALIGNANCY - ri ght, [id number], 200702/26/2011 10/04/2013 Polyneuropathy in other dise ases [...] mRNA, LNP-s, No Pre serve, 2-Dose Series ([employer]) 07/19/2021,11/06/2020,10/11/2020 COVID-19, LNP-s, No Preserve , Sony-sucrose, Ages 12+ (Pfizer) 12/27/2021 COVID-19, MRNA-LNP, 23-24, P F, 30 MCG/0.3 mL, 12 YRS AND ABOVE, IM ([facility]) 07/13/2023 Covid-19, Mrna, Lnp-s, Pf, B ivalent, 30 Mcg, IM, 12 yrs and above ([employer]) 07/17/2022 Pneumococcal Conjugate Vacc, 13 Valent (Prevnar) [...] 01/05/2024 10:20 AM EDT [facility] [address] [place] [address] Nicki Gmoez DPM 132 [place] [address] 01/12/2024 11:30 AM EDT [facility], [facility] [address] [place] [address] [facility] [address] [place] [address] 01/12/2024 11:40 AM EDT Pharmacy Pharmacy, [facility] [place] [address] [place] [address] 01/22/2024 11:45 AM EDT Office Visit Cardiology, [address] [place] [address] Kamryn Espinoza, [address] [place] [address] 01/26/2024 11:40 AM EDT Anticoagulation Pharmacy, [facility] 132 [facility] [place] [address] [place] [address] 03/08/2024 1:20 PM EDT Office Visit Rheumatology [address] [place], [place] [address] Sergio Coughlin MD [address] [place] [address] [place] [address] 03/17/2024 2:20 PM EDT Office Visit General Internal Medicine [facility] 200 [facility] [place] [address] Ruth Brandon MD 200 [facility] [place], [place] [address] 05/12/2024 9:30 AM EDT Office Visit Cardiology, [facility] 132 [facility] [place] [address] Ramsey Gonsalez MD [address] [place] [address] Scheduled Orders Name Type Priority Associated Diagnoses [...] D LEVEL ONCE IN A LIFETIME-USE SMARTSET# [id number] Completed 02/10/2023, 03/18/2021, 02/02/2020, Additional history exists [...] this encounter Medical Devices Implanted Type Area Student Success Coach Device Identifier Shelf Expiration Date Model / Serial / Lot Port 6fr Chronoflex [id number] - [id number] Implanted:Qty: 1 on 02/22/[address] [facility] Left: Chest CR BARD : [employer]ESS SYSTEMS [id number] / / [id number] documented as of this encounter Visit Diagnoses Diagnosis Idiopathic cardiomyopathy (HCC)- Primary Other primary cardiomyopathies ICD (implantable cardioverter-defibrillator), biventricular, in situ Chronic systolic congestive heart failure, NYHA class 2 (HCC) Chronic systolic heart failure documented in this encounter Advance Directives Latest Code Status on File Code Status Date Activated Date Inactivated Comments Full Code 02/22/2008 6:21 PM 02/25/2008 5:28 PM Code Status History Code Status Date Activated Date Inactivated Comments Full Code 02/22/2008 11:42 AM 02/22/2008 6:21 PM Full Code 01/14/2008 1:06 PM 01/16/2008 7:05 PM Care Teams Cold Type Artist Relationship Specialty Start Date End Date Ruth Barndon MD 200 [facility] [place] [address] PCP - General Internal Medicine 04/25/21 documented as of this encounter
--- OUTSIDE RECORDS SUMMARY | 2024-05-20 21:34 | External Medical Summary | Summary of Care ---
Author Name Unknown Organization [facility] Address [address] [place] [facility] [place] [address] Phone [phone] Care Team Providers Care Corporate Meeting Planner Name Role Phone Ruth Brandon MD Primary Care Provider + Reason for Visit * Reason Onset Date Comments Hospital Follow-Up 12/28/2023 Encounter Details Date Type Department Care Team (Late st Contact Info) Description 12/28/2023 Telephone General Internal Medicine [facility] [place] 200 [facility] [place], [place] [phone] Ruth Brandon MD 200 [facility] [place] [id number] Hospital Follow-Up Allergies Active Allergy Reactions Criticality Noted Date Comments Adhesive Tape Other (Please comment) 01/24/2008 Welts, blisters Bee Stings 02/14/2003 Bee Venom Hives 10/17/2019 Iodine Hives 10/17/2019 Ivp Dye 01/10/1998 hives documented as of this encounter (statuses as of 12/31/2023) Medications Medication Sig Dispensed Refills Start Date [...] to appointment 4 Capsule 6 02/26/2023 Active Metoprolol Succinate ER 25 MG Oral Tablet Extended Release 24 Hour (toPROL XL)Indications:Idio pathic cardiomyopathy (HCC),Chronic systolic congestive heart failure, NYHA class 2 (HCC),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) TAKE THREE TABLETS BY MOUTH EVERY MORNING AND TAKE TWO TABLETS BY MOUTH IN THE EVENING 450 Tablet 3 02/26/2023 Active Additional Information Patient taking differently: 25 mg Daily(AM), Take 1 tablet in morning-, Reported on 12/28/2023 Levothyroxine Sodium 25 MCG Oral Tablet (Levoxyl)Indication s:Other specified hypothyroidism TAKE 1 TABLET BY MOUTH DAILY AT LEAST 30 MINUTES PRIOR TO FIRST MEAL OF THE DAY OR OTHER MEDICATIONS 100 Tablet 1 06/18/2023 Active Furosemide 20 MG Oral Tablet (Lasix)Indications: [...] THE MORNING 90 Tablet 3 09/08/2023 09/07/19 Active Warfarin Sodium 5 MG Oral Tablet [...] 100 Tablet 2 11/24/2023 11/24/19 25 Active documented as of this encounter (statuses as of 12/31/2023) Active Problems Problem Noted Date Diagnosed Date Chronic atrial fibrillation 12/29/2023 Atherosclerosis of aorta 06/23/2023 Atherosclerosis of coronary artery of [place] heart without angina pectoris 06/23/2023 Atrial thrombus [...] as of this encounter (statuses as of 12/31/2023) Resolved Problems Problem Noted Date Diagnosed Date [...] HX OF BREAST MALIGNANCY - ri ght, [id number], 200702/26/2011 10/04/2013 Polyneuropathy in other dise ases [...] as of this encounter (statuses as of 12/31/2023) Immunizations Name Administration Dates Next Due COVID-19 mRNA, LNP-s, No Pre serve, 2-Dose Series ([employer]) 07/19/2021,11/06/2020,10/11/2020 COVID-19, LNP-s, No Preserve , Sony-sucrose, Ages 12+ (Proven) 12/27/2021 COVID-19, MRNA-LNP, 23-24, P F, 30 [...] Encounter - Louis Alfaro OSA - 12/31/2023 10:22 AM EDT Patient already has Dr Espinoza appt on 01/22/24 her wound check is on: 01/01/2024 Status: Zayra Time: 10:00 AM Length: 30 Visit Type: [facility] [[id number]] Reg Status: Verified * Telephone Encounter - Maximilian Avitia RN - 12/28/2023 2:08 PM EDT Patient discharged 12/25/2023 from [facility]. Cardiology consulted and recommend "Follow-up cardiology 1to 2 weeks for wound check and rhythm follow-up". Please assist with scheduling this patient. Thankyou documented in this encounter Plan of Treatment Upcoming Encounters Date Type Department Care Team (Late st Contact Info) Description 01/01/2024 10:00 AM EDT Cardiac Studies Cardiology, [facility] [address] [place] [address] [place], Pacer Clinic [facility] [address] [place] [address] 01/05/2024 10:20 AM EDT Office Visit Podiatry [facility] [address] [place] [address] Nicki Gomez DPM 132 [facility] [place] [address] 01/12/2024 11:30 AM EDT Anticoagulation Pharmacy, [facility] 132 [facility] [place], [place] [address] [facility] [place], [place] [address] 01/12/2024 11:40 AM EDT Pharmacy Pharmacy, [facility] 132 [facility] [place], [place] [address] [place], [place] [address] 01/22/2024 11:45 AM EDT Office Visit Cardiology, [facility] 132 [facility] [place] [address] Kamryn Espinoza, [address] [place] [address] 01/26/2024 11:40 AM EDT Anticoagulation Pharmacy, [facility] 132 [facility] [place], [place] [address] [facility] 132 [facility] [place], [place] [address] 03/08/2024 1:20 PM EDT Office Visit Rheumatology [address] [place], [place] [address] Sergio Coughlin MD [address] [place] [address] [place], [place] [address] 03/17/2024 2:20 PM EDT Office Visit General Internal Medicine [facility] [place] [address] [place] [address] Ruth Brandon MD [address] [place], [place] [address] 05/12/2024 9:30 AM EDT Office Visit Cardiology, [facility] [address] [place] [address] Ramsey Gonsalez MD [address] [place] [address] Scheduled Procedures Name Priority Associated Diagnoses Date/Ti [...] D LEVEL ONCE IN A LIFETIME-USE SMARTSET# [id number] Completed 02/10/2023, 03/18/2021, 02/02/2020, Additional history exists [...] this encounter Medical Devices Implanted Type Area Drug Clerk Device Identifier Shelf Expiration Date Model / Serial / Lot Port 6fr Chronoflex [id number] - [id number] Implanted:Qty: 1 on 02/22/2008 [place] [facility] [place]: Chest CR BARD : ACCESS SYSTEMS [id number] / / [id number] documented as of this encounter Advance Directives Latest Code Status on File Code Status Date Activated Date Inactivated Comments Full Code 02/22/2008 6:21 PM 02/25/2008 5:28 PM Code Status History Code Status Date Activated Date Inactivated Comments Full Code 02/22/2008 11:42 AM 02/22/2008 6:21 PM Full Code 01/14/2008 1:06 PM 01/16/2008 7:05 PM Care Teams Corporate Meeting Planner Relationship Specialty Start Date End Date Ruth Brandon MD 200 [place] [address] PCP - General Internal Medicine 04/25/21 documented as of this encounter
--- OUTSIDE RECORDS SUMMARY | 2024-05-20 21:34 | External Medical Summary ---
Author Name Unknown Address Unknown Organization K0G:[facility] [address] [place] [address] Laboratory Report Ordering Provider Test Date Status RIYA RODRIGUEZ 01/26/2024 11:38:11 Final Therapeutic ranges for non-o perative patients:
Prophylaxsis/treatment of DVT: (Range:2.0-3.0)
Treatment of pulmonary embolism:(Range:2.0-3.0)
Prevention of systemic embolism from:
-tissue heart valves
-acute myocardial infarction
-valvular heart disease
-atrial fibrillation
(Range: 2.0-3.0)
Mechanical prosthetic valves: (Range: 2.5-3.5) Observation Date Value Abnormality Reference (Units ) Status INR in Capillary blood by Coagulation assay 01/26/2024 11:38:11 3.2 (INR) Final Performing Location [facility] 57-[address] 0 - [address] [place] [address]
--- OUTSIDE RECORDS SUMMARY | 2024-05-20 21:35 | External Medical Summary | Summary of Care ---
Author Name Unknown Organization [facility] Address [address] [place] [facility] [place] [address] Phone [phone] Care Team Providers Care Editorial Project Manager Name Role Phone Ruth Brandon MD Primary Care Provider + Reason for Visit * Reason Onset Date Comments Hospital Follow-Up 12/28/2023 Encounter Details Date Type Department Care Team (Late st Contact Info) Description 12/28/2023 Telephone General Internal Medicine [facility] [place] 200 [facility] [place], [place] [phone] Ruth Brandon MD 200 [facility] [place] [phone] Hospital Follow-Up Allergies Active Allergy Reactions Criticality Noted Date Comments Adhesive Tape Other (Please comment) 01/24/2008 Welts, blisters Bee Stings 02/14/2003 Bee Venom Hives 10/17/2019 Iodine Hives 10/17/2019 Ivp Dye 01/10/1998 hives documented as of this encounter (statuses as of 12/28/2023) Medications Medication Sig Dispensed Refills Start Date [...] 90 Tablet 3 10/20/2023 10/20/19 25 Active Pantoprazole Sodium 40 MG Oral Tablet Delayed Release (Protonix) TAKE ONE TABLET BY MOUTH EVERY DAY 100 Tablet 2 11/24/2023 11/24/19 25 Active Amiodarone HCl 200 MG Oral Tablet (Cordarone) Take 1 Tablet by mouth daily with breakfast. 0 Active documented as of this encounter (statuses as of 12/28/2023) Active Problems Problem Noted Date Diagnosed Date Atherosclerosis of aorta 06/23/2023 Atherosclerosis of coronary artery of [place] heart without angina pectoris 06/23/2023 Atrial thrombus 11/07/2022 Thrombus due to any device, implant or graft, initial encounter 11/07/2022 Body mass index (BMI) of 40.0 to 44.9 in adult 0 02/24/2022 Overview: Per Obesity protocol Senile osteoporosis 05/09/2020 Fracture of vertebra due [...] as of this encounter (statuses as of 12/28/2023) Resolved Problems Problem Noted Date Diagnosed Date Resolved Date Prediabetes 09/29/2022 02/26/2023 Overview: Per Prediabetes protocol Viral URI with cough 04/02/2022 023 Malignant neoplasm of lower- outer quadrant of right female breast 11/27/2017 04/29/2019 Subclavian vein occlusion, left 08/14/2017 04/29/2019 Rhinitis, non-allergic 10/04/201306/19 Left foot pain 01/04/2013 06/19/2017 Venous insufficiency 01/04/2013 017 HX OF BREAST MALIGNANCY - ri ght, [id number], 200702/26/2011 10/04/2013 Polyneuropathy in other dise ases [...] as of this encounter (statuses as of 12/28/2023) Immunizations Name Administration Dates Next Due COVID-19 mRNA, LNP-s, No Pre serve, 2-Dose Series ([employer]UCT) 07/19/2021,11/06/2020,10/11/2020 COVID-19, LNP-s, No Preserve , Sony-sucrose, Ages 12+ (FRUCT) 12/27/2021 COVID-19, MRNA-LNP, 23-24, P F, 30 [...] Telephone Encounter - Tete Guerrero RPh - 12/28/2023 2:32 PM EDT Noted, will continue to follow. Tete Guerrero, Pharm D, BCACP Clinical Pharmacist 12/28/2023, 2:32 PM * Telephone Encounter - Maximilian Avitia RN - 12/28/2023 2:11 PM EDT Patient discharged to home 12/25/2023 from [facility]. Patient discharged on amiodarone. INR on 12/25/23 was 2.1. Please follow up with patient for further coumadin management. Thank you documented in this encounter Plan of Treatment Upcoming Encounters Date Type Department Care Team (Late st Contact Info) Description 12/29/2023 4:00 PM EDT Office Visit Family Practice [facility] 200 [facility] [place] [address] Alissa Tomas PA-C 200 [facility] [place] [address] 01/05/2024 10:20 AM EDT Office Visit Podiatry [facility] 132 [place] [address] Nicki Gomez DPM 132 [place] [address] 01/12/2024 11:30 AM EDT Anticoagulation Pharmacy, [facility] [address] [place] [address] [facility] [address] [place] [address] 01/12/2024 11:40 AM EDT Pharmacy Pharmacy, [facility] [address] [place] [address] [facility] [address] [place] [address] 01/22/2024 11:45 AM EDT Office Visit Cardiology, [facility] [place] [address] Kamryn Espinoza, [address] [place] [address] 01/26/2024 11:40 AM EDT Anticoagulation Pharmacy, [facility] [address] [place], [place] [address] [facility] [address] [place] [address] 03/08/2024 1:20 PM EDT Office Visit Rheumatology [address] [place], [place] [address] Sergio Coughlin MD [address] [place] [address] [place] [address] 03/17/2024 2:20 PM EDT Office Visit General Internal Medicine [facility] [address] [place] [address] Ruth Brandon MD [address] [place] [address] 05/12/2024 9:30 AM EDT Office Visit Cardiology, [facility] [place] [address] Ramsey Gonsalez MD 132 [facility] [place] [address] Scheduled Procedures Name Priority Associated Diagnoses Date/Ti [...] D LEVEL ONCE IN A LIFETIME-USE SMARTSET# [id number] Completed 02/10/2023, 03/18/2021, 02/02/2020, Additional history exists [...] this encounter Medical Devices Implanted Type Area Medical Instructor Device Identifier Shelf Expiration Date Model / Serial / Lot Port 6fr Chronoflex [id number] - [id number] Implanted:Qty: 1 on 02/22/2008 at OR [facility] Left: Chest CR BARD : [employer]ESS SYSTEM[employer] [id number] / / [id number] documented as of this encounter Advance Directives Latest Code Status on File Code Status Date Activated Date Inactivated Comments Full Code 02/22/2008 6:21 PM 02/25/2008 5:28 PM Code Status History Code Status Date Activated Date Inactivated Comments Full Code 02/22/2008 11:42 AM 02/22/2008 6:21 PM Full Code 01/14/2008 1:06 PM 01/16/2008 7:05 PM Care Teams Editorial Project Manager Relationship Specialty Start Date End Date Ruth Brandon MD 200 [place] [address] PCP - General Internal Medicine 04/25/21 documented as of this encounter
--- OUTSIDE RECORDS SUMMARY | 2024-05-20 21:35 | External Medical Summary | Summary of Care ---
Author Name Unknown Organization [facility] Address [address] [facility] [address] Phone [phone] Care Team Providers Care Field Underwriter Name Role Phone Ruth Brandon MD Primary Care Provider + Encounter Details Date Type Department Care Team (Late st Contact Info) Description 12/28/2023 Result Scan Unspecified Department Ramsey Gonsalez MD [address] [place] [address] <No scans attached> Allergies Active Allergy Reactions Criticality Noted Date [...] THE EVENING 450 Tablet 3 02/26/2023 Active Levothyroxine Sodium 25 MCG Oral Tablet [...] aorta 06/23/2023 Atherosclerosis of coronary artery of [place] heart without angina pectoris 06/23/2023 Atrial thrombus [...] HX OF BREAST MALIGNANCY - ri ght, [id number], 200702/26/2011 10/04/2013 Polyneuropathy in other dise ases [...] mRNA, LNP-s, No Pre serve, 2-Dose Series (Inviragen) 07/19/2021,11/06/2020,10/11/2020 COVID-19, LNP-s, No Preserve , Sony-sucrose, Ages 12+ (Inviragen) 12/27/2021 COVID-19, MRNA-LNP, 23-24, P F, 30 MCG/0.3 mL, 12 YRS AND ABOVE, IM ([employer]-Comirnaty) 07/13/2023 Covid-19, Mrna, Lnp-s, Pf, B ivalent, 30 Mcg, IM, 12 yrs and above (Inviragen) 07/17/2022 Pneumococcal Conjugate Vacc, 13 Valent (Prevnar) [...] 4:00 PM EDT Office Visit Family Practice [facility] [address] [place] [address] Alissa Tomas PA-C [address] [place] [address] 01/05/2024 10:20 AM EDT Office Visit Podiatry [facility] [address] [place] [address] Nicki Gomez [facility] [address] [place] [address] 01/12/2024 11:30 AM EDT Anticoagulation Pharmacy, [facility] [address] [place] [address] [facility] [address] [place] [address] 01/12/2024 11:40 AM EDT Pharmacy Pharmacy, [facility] 132 [facility] [place] [address] [facility] [place] [place] [address] 01/22/2024 11:45 AM EDT Office Visit Cardiology, [facility] 132 [facility] [place] [address] Kamryn Espinoza, [address] [place] [address] 01/26/2024 11:40 AM EDT Anticoagulation Pharmacy, [facility] [address] [place] [address] [facility] 132 [facility] [place] [address] 03/08/2024 1:20 PM EDT Office Visit Rheumatology [address] [place] [address] Sergio Coughlin MD [address] [place] [address] 03/17/2024 2:20 PM EDT Office Visit General Internal Medicine [facility] 200 [facility] [place] [address] Ruth Brandon MD 200 [facility] [place] [address] 05/12/2024 9:30 AM EDT Office Visit Cardiology, [facility] [address] [place] [address] Ramsey Gonsalez MD [address] [place] [address] Scheduled Procedures Name Priority Associated Diagnoses Date/Ti [...] D LEVEL ONCE IN A LIFETIME-USE SMARTSET# 17173 Completed 02/10/2023, 03/18/2021, 02/02/2020, Additional history exists [...] this encounter Medical Devices Implanted Type Area Bandage Wrapping Machine Operator Device Identifier Shelf Expiration Date Model / Serial / Lot Port 6fr Chronoflex [id number] - [id number] Implanted:Qty: 1 on 02/22/2008 at [facility] Left: Chest CR BARD : [employer] [id number] / / [id number] documented as of this encounter Procedures Procedure Name Priority Date/Time Associated Diagnosis Comments CARDIOLOGY SCANNED RESULT 12/28/2023 documented in this encounter Results * CARDIOLOGY SCANNED RESULT (12/28/2023) 12/28/2023 Ramsey Gonsalez MD OTHER documented in this encounter Advance Directives Latest Code Status on File Code Status Date Activated Date Inactivated Comments Full Code 02/22/2008 6:21 PM 02/25/2008 5:28 PM Code Status History Code Status Date Activated Date Inactivated Comments Full Code 02/22/2008 11:42 AM 02/22/2008 6:21 PM Full Code 01/14/2008 1:06 PM 01/16/2008 7:05 PM Care Teams Field Underwriter Relationship Specialty Start Date End Date Ruth Brandon MD 200 [facility] [place] [address] PCP - General Internal Medicine 04/25/21 documented as of this encounter
--- OUTSIDE RECORDS SUMMARY | 2024-05-20 21:35 | External Medical Summary | Summary of Care ---
Author Name Unknown Organization [facility] Address [address] [facility] [place] [address] Phone [phone] Care Team Providers Care Nanny Caregiver Name Role Phone Ruth Brandon MD Primary Care Provider + Reason for Visit * Reason Comments Pre-Op Testing Cataract surgery Encounter Details Date Type Department Care Team (Latest Contact Info) Description 12/29/2023 4:00 PM EDT Office Visit Family Practice [facility] [place] 200 [facility] [place] [address] Alissa Tomas PA-C 200 [facility] [place] [address] Age-related cataract of both eyes, unspecified age-related cataract type*; Pre-op examination; Vitamin D deficiency; Senile osteoporosis; Restless legs syndrome; Presence of automatic cardioverter/defibrilla tor (AICD); Idiopathic cardiomyopathy (HCC); Acquired hypothyroidism; 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); HX OF BREAST MALIGNANCY - right, [id number], 2007; Essential hypertension with goal blood pressure less than 130/80 Allergies Active Allergy Reactions Criticality Noted Date Comments Adhesive Tape Other (Please comment) 01/24/2008 Welts, blisters Bee Stings 02/14/2003 Bee Venom Hives 10/17/2019 Iodine Hives 10/17/2019 Ivp Dye 01/10/1998 hives documented as of this encounter (statuses as of 12/29/2023) Medications Medication Sig Dispensed Refills Start Date [...] Oral, 5 days a week , thu, , sat, sun, Reported on 12/29/2023 Pantoprazole Sodium 40 MG Oral Tablet Delayed Release (Protonix) TAKE ONE TABLET BY MOUTH EVERY DAY 100 Tablet 2 11/24/2023 11/24/19 25 Active Amiodarone HCl 200 MG Oral Tablet (Cordarone) Take 1 Tablet by mouth daily with breakfast. 0 Active documented as of this encounter (statuses as of 12/29/2023) Active Problems Problem Noted Date Diagnosed Date Chronic atrial fibrillation 12/29/2023 Atherosclerosis of aorta 06/23/2023 Atherosclerosis of coronary artery of [place] heart without angina pectoris 06/23/2023 Atrial thrombus [...] as of this encounter (statuses as of 12/29/2023) Resolved Problems Problem Noted Date Diagnosed Date [...] HX OF BREAST MALIGNANCY - ri ght, [id number], 200702/26/2011 10/04/2013 Polyneuropathy in other dise ases [...] as of this encounter (statuses as of 12/29/2023) Immunizations Name Administration Dates Next Due COVID-19 mRNA, LNP-s, No Pre serve, 2-Dose Series (Echograph) 07/19/2021,11/06/2020,10/11/2020 COVID-19, LNP-s, No Preserve , Sony-sucrose, Ages 12+ (Pfizer) 12/27/2021 COVID-19, MRNA-LNP, 23-24, P F, 30 MCG/0.3 mL, 12 YRS AND ABOVE, IM ([facility]) 07/13/2023 Covid-19, Mrna, Lnp-s, Pf, B ivalent, 30 Mcg, IM, 12 yrs and above (Echograph) 07/17/2022 Pneumococcal Conjugate Vacc, 13 Valent (Prevnar) [...] Sign Reading Time Taken Comments Blood Pressure 118/72 12/29/2023 4:11 PM EDT Pulse 70 12/29/2023 4:11 PM EDT Temperature 36.3 C (97.3 F) 12/29/2023 4:11 PM ED T Respiratory Rate 16 12/29/2023 4:11 PM EDT Oxygen Saturation - - Inhaled Oxygen Concentration - - Weight 80.7 kg (178 lb) 12/29/2023 4:11 PM EDT Height - - Body Mass Index 39.94 09/15/2023 12:57 PM EST documented in this encounter Progress Notes * Alissa Tomas PA-C - 12/29/2023 4:20 PM EDT Subjective: Eduarda Bond is a 78 year old female. Presents at the request of Dr Silva for medical clearance for cataract removal. . PHM: Patient Active Problem List Diagnosis Code Hypothyroidism E03.9 Mitral valve disorder I05.9 Restless legs syndrome G25.81 Decreased hearing H91.90 Yi esophagus K22.70 Essential hypertension with goal blood pressure less than 130/80 I10 History of breast cancer Z85.3 Gastroesophageal reflux disease without esophagitis K21.9 Vitamin D deficiency E55.9 Idiopathic cardiomyopathy (HCC) I42.9 Chronic systolic congestive heart failure, NYHA class 2 ([facility]) I50.22 Degenerative disc disease, cervical M50.30 Presence of automatic cardioverter/defibrillator (AICD) Z95.810 Hypertensive heart disease with chronic systolic congestive heart failure ([facility]) I11.0, I50.22 Senile osteoporosis M81.0 Fracture of vertebra due to osteoporosis with routine healing M80.08XD Atrial thrombus I51.3 Thrombus due to any device, implant or graft, initial encounter T85.868A Atherosclerosis of aorta ([facility]) I70.0 Atherosclerosis of coronary artery of [place] heart without angina pectoris I25.10 Current Outpatient Medications Medication Sig Dispense Refill [...] as needed for Wheezing. 3 Inhaler 1 Amoxicillin 500 MG Oral Capsule (Amoxil) Take 4 capsules prior to appointment 4 Capsule 6 Metoprolol Succinate ER 25 MG Oral Tablet Extended Release 24 Hour (toPROL XL) TAKE THREE TABLETS BY MOUTH EVERY MORNING AND TAKE TWO TABLETS BY MOUTH IN THE EVENING (Patient taking differently: 1 Tablet in the morning. Take 1 tablet in morning-.) 450 Tablet 3 Levothyroxine Sodium 25 MCG Oral Tablet (Levoxyl) TAKE 1 TABLET BY MOUTH DAILY AT LEAST 30 MINUTES PRIOR TO FIRST MEAL OF THE DAY OR OTHER MEDICATIONS 100 Tablet 1 Furosemide 20 MG Oral Tablet (Lasix) TAKE ONE TABLET BY MOUTH EVERY DAY 5 DAYS PER WEEK, WITH AN EXTRA TABLET ON ALTERNATIVE DAYS IF NEEDED 90 Tablet 3 Entresto 24-26 MG Oral Tablet (sacubitril-valsartan 24-26 mg per tab) TAKE ONE TABLET BY MOUTH TWICE A DAY 200 Tablet 3 Rosuvastatin Calcium 10 MG Oral Tablet (Crestor) TAKE ONE TABLET BY MOUTH EVERY DAY IN THE MORNING 90 Tablet 3 Pantoprazole Sodium 40 MG Oral Tablet Delayed Release (Protonix) TAKE ONE TABLET BY MOUTH EVERY [id number] Tablet 2 Amiodarone HCl 200 MG Oral Tablet (Cordarone) Take 1 Tablet by mouth daily with breakfast. acetaminophen (TYLENOL) 500 MG Tablet Take 2 Tablets by mouth 2 times a day as needed (pain). Triamcinolone Acetonide 0.1 % External Cream (Aristocort) Apply to areas of itchy rash on back, arms, and neck twice daily 450 g 5 Warfarin Sodium 5 MG Oral Tablet (Coumadin) TAKE 1 TABLET BY MOUTH EVERY EVENING OR DIRECTED BY ANTICOAGULATION CLINIC (Patient taking differently: Take 0.5 Tablets by mouth. 5 days a week , wed, th, sat, sun) 90 Tablet 3 No current facility-administered medications for this visit. Past Medical History: Diagnosis Date Yi's esophagus 03/09/2012 UPPER GI ENDOSCOPY DIAGNOSTIC performed by Uma Lin DO at [facility], path showsshort segment Barretts esophagitis repeat in 1 year Barretts esophagus 04/05/13 UPPER GI ENDOSCOPY DIAGNOSTIC performed by Uma Lin DO at [facility], inflammation consistent with long segment barretts, repeat egd in 3 years Breast cancer (HCC) 01/14/2008 right breast with mastectomy HTN, goal below 140/90 Hypothyroidism Left bundle branch block Malignant neoplasm of lower outer quadrant of female breast 12/13/2007 1 of 26 positive lymph nodes Menopause Mitral valve disorder MVP Presence of automatic cardioverter/defibrillator (AICD) 09/03/2017 Reflux esophagitis Past Surgical History: Procedure Laterality Date BX LYMPH NODE DEEP AXIL 01/14/08 BIOPSY LYMPH NODE DEEP AXILLARY OPEN performed by SRIKANTH NÚÑEZ at [facility] CATHETERIZE LEFT HEART THRU SKIN 06/2000 Cardiac Catheterization, Left Heart COLONOSCOPY 1989 - COLONOSCOPY, DIAGNOSTIC (RECTUM) 01/30/09 repeat 10 yrs COLONOSCOPY, DIAGNOSTIC (RECTUM) 11/25/2018 diverticulosis, repeat 10 yrs/[facility] DILATION AND CURETTAGE (D&C) D&C Dr Ward EGD, FLEXIBLE, DIAGNOSTIC 03/09/2012 UPPER GI ENDOSCOPY DIAGNOSTIC performed by Uma Lin DO at [facility], path showsshort segment Barretts esophagitis repeat in 1 year EGD, FLEXIBLE, DIAGNOSTIC 04/05/2013 UPPER GI ENDOSCOPY DIAGNOSTIC performed by Uma Lin DO at [facility], inflammation consistent with long segment barretts, repeat egd in 3 years EGD, FLEXIBLE, DIAGNOSTIC 07/08/2016 Barretts, repeat 3 yrs/[facility] INSER TUNN ACC DEV;5 YRS/OLDER 02/22/08 INSERT TUNNELED CENTRAL VENOUS ACCESS WITH SUBQ PORT performed by SRIKANTH NÚÑEZ at [facility] LEFT VENTRICULAR PACING ELECTRODE, ADD-ON Left 08/25/2017 CS LEAD PLACEMENT WITH INITIAL DEVICE performed [place] Kamryn Espinoza DO [place] [facility] LIGATE/CUT OVIDUCT(S) MASTECTOMY, SIMPLE, COMPLETE 01/14/08 MASTECTOMY SIMPLE COMPLETE performed by SRIKANTH NÚÑEZ at [facility] THORACOSTOMY TUBE W/ WATER SEAL 02/23/2008 TRANSLUM BALLOON ANGIOPLASTY OPEN/PERC W/IMAGE 1ST VEIN 08/25/2017 ANGIOPLASTY (EXCEPT DIALYSIS CIRCUIT) performed by Kamryn Espinoza DO at [facility] VENOGRAM EXTREMITY UNI-FLUOR 08/25/2017 IMAGING SUPERVISION & INTERPRETATION EXTREMITY VEIN performed by Kamryn Espinoza DO at [facility] Review of patient's allergies indicates: Allergen Reactions Adhesive Tape Other (Please comment) Welts, blisters Bee Stings Bee Venom Hives Iodine Hives Ivp Dye hives Family History Problem Relation Age of Onset Breast Cancer Sister Heart Disorder Father OK Heart Disorder Sister MVP Hypertension Mother Cancer Brother thyroid Cancer Brother brain Other (skin disorders) Brother denies melanoma or other skin disorders Family Status Relation Status Mo Alive Fa at age 67 [place] Sis Alive Sis Alive Sis Alive Sis (Not Specified) Sis Alive MVP Bro Alive Bro Alive Bro Alive Bro Cardiac abnormality Son Alive Son Alive Son Alive Rashid Alive Son at age 1 Pneumonia Sis (Not Specified) Bro (Not Specified) Bro (Not Specified) Social History Tobacco Use Smoking status: Never Smokeless tobacco: Never Substance Use Topics Alcohol use: Not Currently Comment: Rare glass of wine Vaping/E-Cigarette Use Vaping/E-Cigarette Use Never User Vaping/E-Cigarette Substances Vaping/E-Cigarette Devices Review of Systems: General: No change in weight, No weakness, No fatigue, and No fevers, sweats, or chills Head: No significant headache and No recent significant head injury Eyes: No eye pain, redness, discharge, or excessive tearing, No diplopia, No h/o cataracts or glaucoma, No h/o glaucoma, + wears glasses, and + h/o cataracts Ears: No recent change in hearing, No tinnitus or vertigo, No ear pain, and No ear discharge Nose: No h/o frequent colds or sinusitis, No nasal stuffiness, No h/o hay fever, and No significantepistaxis Throat/Oropharynx: No teeth or gum problems, No bleeding gums, No tongue complaints, No sore throat, and No recent change in voice or hoarseness Neck: No complaint of lumps in neck, No swollen glands, No recent swelling in thyroid area, and No significant pain in neck Breast: No new breast lumps, No severe breast pain, No nipple discharge, No recent change in shape/contor, and Patient does perform monthly self breast exam Respiratory: No cough, sputum, or hemoptysis, No wheezing, No shortness of breath, and No recent change in breathing Cardiac: No chest pain, No shortness of breath, No dyspnea on exertion, No orthopnea, No paroxysmalnocturnal dyspnea, No edema, No palpitations, and No syncope Gastrointestinal: No dysphagia, No significant heartburn, No significant change in appetite, No nausea, vomiting, diarrhea, or constipation, No hematemesis, No blood in stools or black tarry stools, No abdominal bloating or early satiety, and No abdominal pain Urinary: No urinary frequency, No dysuria, No hematuria, No urinary urgency, No polyuria, No nocturia, No incontinence, No hesitancy, and No sensation of incomplete voiding Hematologic: No anemia, No easy bruising or abnormal bleeding, and No history of transfusion Neurologic: No fainting or blackouts, No seizures, No paralysis or focal weakness, No numbness or tingling, No tremors, and No significant problems with memory Skin: No edema, No rash, and No itching Objective: BP 118/72 | Pulse 70 | Temp 36.3 C (97.3 F) | Resp 16 | Wt 80.7 kg (178 lb) | BMI 39.94 kg/m | BSA 1.79 m Physical Exam: General: alert, healthy, no distress, well nourished, well developed, comfortable, and cooperative Head: Normocephalic, No masses, lesions, tenderness or abnormalities Eye Exam: PERRLA, extraocular movements intact, conjunctiva are pink and non- injected, sclera clear Ears: External ears normal, Canals clear, TM's Normal Nose: no mucosal erythema, no mucosal edema, no purulent discharge Oropharynx: no exudate, no erythema, lips, buccal mucosa, and tongue normal, and mucous membranes are moist Neck: supple, no adenopathy, no bruits, thyroid normal size, non-tender, without nodularity Heart: regular rate & rhythm, no murmur, and no gallops Lungs: chest symmetric with normal AP diameter, no chest deformities noted, normal respiratory rateand rhythm, no chest wall tenderness, diaphragmatic excursion normal, lungs clear to auscultation Abdomen: abdomen soft, non-tender, normal bowel sounds, no masses or organomegaly, no rebound or guarding, no CVA tenderness, and no bladder distention identified Back: back symmetric, no curvature, no costovertebral angle tenderness, range of motion is normal, no skin lesions, erythema or scars, no tenderness to percussion or palpation Extremities: less than 2 second capillary refill, no joint deformities, effusion, or inflammation, no edema, no skin discoloration, no clubbing, no cyanosis Neuro Exam: alert & oriented x 3 with fluent speech, no focal motor/sensory deficits, gait normal ASSESSMENT: Diagnosis for procedure: cataracts Preoperative Examination PLAN: Patient is medically cleared. Perioperative recommendations regarding medications and treatment include medications as directed. This assessment was forwarded to Dr Silva. Alissa Tomas PA-C documented in this encounter Nursing Notes * Diana Ambrocio LPN - 12/29/2023 4:10 PM EDT The patient has been properly identified by confirmation of name and date of . Chief Complaint Patient presents with Pre-Op Testing Cataract surgery documented in this encounter Plan of Treatment Upcoming Encounters Date Type Department Care Team (Late st Contact Info) Description 01/05/2024 10:20 AM EDT Office Visit [facility] [address] Nicki Gomez [facility] [address] 01/12/2024 11:30 AM EDT Anticoagulation Pharmacy, [facility] [place] [address] [facility] [address] [place] [address] 01/12/2024 11:40 AM EDT Pharmacy Pharmacy, [facility] [address] [place] [address] [facility] [address] [place] [address] 01/22/2024 11:45 AM EDT Office Visit Cardiology, [facility] 132 [facility] [place] [address] Kamryn Espinoza, [address] [place] [address] 01/26/2024 11:40 AM EDT Anticoagulation Pharmacy, [facility] [address] [place] [place] [address] [facility] [address] [place] [address] 03/08/2024 1:20 PM EDT Office Visit Rheumatology [address] [place], [place] [address] Sergio Coughlin MD [facility] [place], [place] [address] 03/17/2024 2:20 PM EDT Office Visit General Internal Medicine [facility] [address] [place], [place] [address] Ruth Brandon MD [address] [place], [place] [address] 05/12/2024 9:30 AM EDT Office Visit Cardiology, [facility] 132 [facility] [place] [address] Ramsey Gonsalez MD [address] [place] [address] Scheduled Procedures Name Priority Associated Diagnoses Date/Ti [...] D LEVEL ONCE IN A LIFETIME-USE SMARTSET# [id number] Completed 02/10/2023, 03/18/2021, 02/02/2020, Additional history exists [...] this encounter Medical Devices Implanted Type Area Neon Technician Device Identifier Shelf Expiration Date Model / Serial / Lot Port 6fr Chronoflex [id number] - [id number] Implanted:Q[place] [facility] [place]: Chest CR BARD : [employer] [id number] / / [id number] documented as of this encounter Visit Diagnoses Diagnosis Age-related cataract of both eyes, unspecified age-related cataract type- Primary Pre-op examination Preoperative examination, unspecified Vitamin D deficiency Unspecified vitamin D deficiency Senile osteoporosis Restless legs syndrome Restless legs syndrome (RLS) Presence of automatic cardioverter/defibrillator (AICD) Automatic implantable cardiac defibrillator in situ Idiopathic cardiomyopathy (HCC) Other primary cardiomyopathies Acquired hypothyroidism Unspecified hypothyroidism 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) HX OF BREAST MALIGNANCY - right, [id number], 2007 Personal history of malignant neoplasm of breast Essential hypertension with goal blood pressure less than 130/80 documented in this encounter Advance Directives Latest Code Status on File Code Status Date Activated Date Inactivated Comments Full Code 02/22/2008 6:21 PM 02/25/2008 5:28 PM Code Status History Code Status Date Activated Date Inactivated Comments Full Code 02/22/2008 11:42 AM 02/22/2008 6:21 PM Full Code 01/14/2008 1:06 PM 01/16/2008 7:05 PM Care Teams Nanny Caregiver Relationship Specialty Start Date End Date Ruth Brandon MD [address] [place] [address] [place] [address] PCP - General Internal Medicine 04/25/21 documented as of this encounter"
--- OUTSIDE RECORDS SUMMARY | 2024-05-20 21:35 | External Medical Summary | Summary of Care ---
Author Name Unknown Organization [facility] [address] [facility] [address] Phone [phone] Care Team Providers Care Solder Making Laborer Name Role Phone Ruth Brandon MD Primary Care Provider + Encounter Details Date Type Department Care Team (Late st Contact Info) Description 12/28/2023 Result Scan Unspecified Department Ramsey Gonsalez MD [address] [place] [address] <No scans attached> Allergies Active [...] aorta 06/23/2023 Atherosclerosis of coronary artery of [place] heart without angina pectoris 06/23/2023 Atrial thrombus [...] HX OF BREAST MALIGNANCY - ri ght, [id number], 200702/26/2011 10/04/2013 Polyneuropathy in other dise ases [...] mRNA, LNP-s, No Pre serve, 2-Dose Series ([employer]) 07/19/2021,11/06/2020,10/11/2020 COVID-19, LNP-s, No Preserve , Sony-sucrose, Ages 12+ (Lum[employer]) 12/27/2021 COVID-19, MRNA-LNP, 23-24, P F, 30 MCG/0.3 mL, 12 YRS AND ABOVE, IM ([employer]-Comirnaty) 07/13/2023 Covid-19, Mrna, Lnp-s, Pf, B ivalent, 30 Mcg, IM, 12 yrs and above ([employer]) 07/17/2022 Pneumococcal Conjugate Vacc, 13 Valent (Prevnar) [...] 4:00 PM EDT Office Visit Family Practice [facility] [address] [place] [address] Alissa Tomas PA-C [address] [place] [address] 01/05/2024 10:20 AM EDT Office Visit Podiatry [facility] [address] [place] [address] Nicki Gomez [facility] [address] [place] [address] 01/12/2024 11:30 AM EDT Anticoagulation Pharmacy, [facility] [address] [place] [address] [facility] [address] [place] [address] 01/12/2024 11:40 AM EDT Pharmacy Pharmacy, [facility] [address] [facility] [place] [address] [facility] [place] [place] [address] 01/22/2024 11:45 AM EDT Office Visit Cardiology, [facility] [address] [facility] [place] [address] Kamryn Espinoza, [address] [place] [address] 01/26/2024 11:40 AM EDT Anticoagulation Pharmacy, [facility] [address] [place] [address] [facility] [address] [facility] [place] [address] 03/08/2024 1:20 PM EDT Office Visit Rheumatology [address] [place] [address] Sergio Coughlin MD [address] [facility] [place] [address] 03/17/2024 2:20 PM EDT Office Visit General Internal Medicine [facility] 200 [facility] [place] [address] Ruth Brandon MD [address] [facility] [place] [address] 05/12/2024 9:30 AM EDT Office Visit Cardiology, [facility] [address] [place] [address] Ramsey Gonsalez MD [address] [place] [address] Scheduled Procedures Name Priority Associated Diagnoses Date/Ti [...] D LEVEL ONCE IN A LIFETIME-USE SMARTSET# [id number] Completed 02/10/2023, 03/18/2021, 02/02/2020, Additional history exists [...] this encounter Medical Devices Implanted Type Area Pack Puller Device Identifier Shelf Expiration Date Model / Serial / Lot Port 6fr Chronoflex [id number] - [id number] Implanted:Qty: 1 on 02/22/2008 at OR [facility] Left: Chest CR BARD : [employer] [id number] / / [id number] documented as of this encounter Procedures Procedure [...] 1:06 PM 01/16/2008 7:05 PM Care Teams Solder Making Laborer Relationship Specialty Start Date End Date Ruth Brandon MD [address] [facility] [place] [address] PCP - General Internal Medicine 04/25/21 documented as of this encounter
--- OUTSIDE RECORDS SUMMARY | 2024-05-20 21:35 | External Medical Summary | Summary of Care ---
Author Name Unknown Organization [facility] Address [address] [facility] [address] Phone [phone] Care Team Providers Care Glaucoma Specialist Name Role Phone Ruth Brandon MD Primary Care Provider + Reason for Referral * Evaluate & Treat - Unlimited Visits (Within 10 days (routine)) - Authorized Specialty Diagnoses / Procedures Referred By Contact Referred To Contact Cardiac Electrophysiology / Cardiology Diagnoses Elective replacement of implantable cardioverter-defibrillat or (ICD) battery required Idiopathic cardiomyopathy (HCC) ICD (implantable cardioverter-defibrillat or), biventricular, in situ Rashmi Graham PA-C [address] [place] [address] Referral ID Status Reason Start Date Expiration Date Visits Requested Visits Authorized [id number] Authorized Specialty Services Required 12/14/2023 999 999 Question Answer Referral Priority Within 10 days (routine) Where should this appointment be scheduled? [facility] Reason for Visit * Reason Onset Date Comments Advice 12/14/2023 Encounter Details Date Type Department Care Team (Late st Contact Info) Description 12/14/2023 Telephone Cardiology, [facility] [address] [place] [address] Rashmi Graham PA-C [address] [place] [address] Advice Allergies Active Allergy Reactions Criticality Noted Date Comments Adhesive Tape Other (Please comment) 01/24/2008 Welts, blisters Bee Stings 02/14/2003 Bee Venom Hives 10/17/2019 Iodine Hives 10/17/2019 Ivp Dye 01/10/1998 hives documented as of this encounter (statuses as of 12/23/2023) Medications Medication Sig Dispensed Refills Start Date [...] as of this encounter (statuses as of 12/23/2023) Active Problems Problem Noted Date Diagnosed Date Atherosclerosis of aorta 06/23/2023 Atherosclerosis of coronary artery of [place] heart without angina pectoris 06/23/2023 Atrial [...] as of this encounter (statuses as of 12/23/2023) Resolved Problems Problem Noted Date Diagnosed Date Resolved Date Prediabetes 09/29/2022 02/26/2023 Overview: Per Prediabetes protocol Viral URI with cough 04/02/2022 023 Malignant neoplasm of lower- outer quadrant of right female breast 11/27/2017 04/29/2019 Subclavian vein occlusion, left 08/14/2017 04/29/2019 Rhinitis, non-allergic 10/04/201306/19 Left foot pain 01/04/2013 06/19/2017 Venous insufficiency 01/04/2013 017 HX OF BREAST MALIGNANCY - ri ght, [id number], 200702/26/2011 10/04/2013 Polyneuropathy in other dise ases [...] as of this encounter (statuses as of 12/23/2023) Immunizations Name Administration Dates Next Due COVID-19 mRNA, LNP-s, No Pre serve, 2-Dose Series ([employer]) 07/19/2021,11/06/2020,10/11/2020 COVID-19, LNP-s, No Preserve , Sony-sucrose, Ages 12+ (Pfizer) 12/27/2021 COVID-19, MRNA-LNP, 23-24, P F, 30 MCG/0.3 mL, 12 YRS AND ABOVE, IM ([facility]) 07/13/2023 Covid-19, Mrna, Lnp-s, Pf, B ivalent, 30 Mcg, IM, 12 yrs and above ([employer]) 07/17/2022 Pneumococcal Conjugate Vacc, 13 Valent (Prevnar) [...] encounter Miscellaneous Notes * Telephone Encounter - Leda Webster LPN - 12/23/2023 12:45 PM EDT Pt is currently inpatient at [facility]. * Telephone Encounter - Louis Alfaro OSA - 12/15/2023 2:47 PM EDT Patient called back, she is able to keep the January 21 appt, however, she is not sure what to do about the cataract surgery. Please call patient back, she wants to know if this appt in January, will it interfere with her surgery. Currently this is a new patient appt. I do not see any past patient apptswith Dr. Espinoza or Radha. Please call patient. * Telephone Encounter - Louis Alfaro OSA - 12/15/2023 9:41 AM EDT Called patient and LM for her to call me back, appt is schedules on : 01/22/2024 Status: Zayra Time: 11:45 AM Length: 60 Visit Type: NEW PATIENT EP CARDIO [[id number]] Reg Status: Verified Copay: $20.00 Provider: Kamryn Espinoza DO Will also send her a MyG as well. * Telephone Encounter - Shonna Hamlin RN - 12/14/2023 4:16 PM EDT Referral for EP placed. Please assist in scheduling with Dr. Espinoza, next available. EDE Tompkins to watch for sooner appointment should one become available given plan for upcoming cataract procedure. * Telephone Encounter - Rashmi Graham PA-C - 12/14/2023 4:12 PM EDT EP referral. Would check with EP regarding recommendations for cataract surgery. 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 Patient aware will hear tone until seen in office. Please advise. Patient does report scheduled for cataract surgery on 01/12 and 01/26. Asking if able to proceed withprocedure before battery replacement. OK to place EP referral at this time? * Telephone Encounter - Sultana Bonilla OSA - 12/14/2023 9:21 AM EDT Person calling: Eduarda Relationship to patient: self Number to return call: [phone] Reason for call: Eduarda calling in stating that when she last saw Rashmi Graham she told her that she would soon need a battery change in her pacemaker and that when she heard it sound to call and let her know. She stated it made a musical sound this morning a little after 9. Pharmacy: na Provider Name:Rashmi Graham documented in this encounter Plan of Treatment Upcoming Encounters Date Type Department Care Team (Late st Contact Info) Description 12/29/2023 4:00 PM EDT Office Visit Family Practice [facility] [place] [address] Alissa Tomas PA-C [address] [place] [address] 01/05/2024 10:20 AM EDT Office Visit Podiatry [facility] 132 [facility] [place] [address] Nicki Gomez DPM 132 [facility] [place] [address] 01/12/2024 11:30 AM EDT Anticoagulation Pharmacy, [facility] [address] [facility] [place] [address] [place] [address] 01/12/2024 11:40 AM EDT Pharmacy Pharmacy, [facility] [address] [facility] [place] [address] [facility] 132 [facility] [place] [address] 01/22/2024 11:45 AM EDT Office Visit Cardiology, [facility] [address] [facility] [place] [address] Kamryn Espinoza, DO [address] [place] [address] 01/26/2024 11:40 AM EDT Anticoagulation Pharmacy, [facility] [address] [place] [address] [facility] [address] [place] [address] 03/08/2024 1:20 PM EDT Office Visit Rheumatology [place] [address] [facility] [place] [address] Sergio Coughlin MD [address] [place] [address] [place] [address] 03/17/2024 2:20 PM EDT Office Visit General Internal Medicine [facility] 200 [facility] [place] [address] Ruth Brandon MD 200 [facility] [place] [address] 05/12/2024 9:30 AM EDT Office Visit Cardiology, [facility] [address] [place] [address] Ramsey Gonsalez MD [address] [place] [address] Scheduled Procedures Name Priority Associated Diagnoses Date/Ti me COLONOSCOPY FLEXIBLE PROXIMA L DIAGNOSTIC Recall Special screening for malignant neoplasm of colon Scheduled Referrals Name Type Priority Associated Diagnoses Orde r Schedule ELECTROPHYSIOLOGY REFERRAL OP Referral Within 10 days (routine) Elective replacement of implantable cardioverter-defibril lator (ICD) battery required Idiopathic cardiomyopathy (HCC) ICD (implantable cardioverter-defibril lator), biventricular, in situ Ordered: 12/14/2023 Health Maintenance Due Date Last Done Comments [...] D LEVEL ONCE IN A LIFETIME-USE SMARTSET# [id number] Completed 02/10/2023, 03/18/2021, 02/02/2020, Additional history exists [...] this encounter Medical Devices Implanted 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 Shelf Expiration Date Model / Serial / Lot Port 6fr Chronoflex [id number] - [id number] Implanted:Qty: 1 on 02/22/2008 at OR [facility] Left: Chest CR BARD : [employer] [id number] / / [id number] documented as of this encounter Visit Diagnoses Diagnosis Elective replacement of implantable cardioverter-defibrillator (ICD) battery required- Primary Idiopathic cardiomyopathy (HCC) Other primary cardiomyopathies ICD (implantable cardioverter-defibrillator), biventricular, in situ documented in this encounter Advance Directives Latest Code Status on File Code Status Date Activated Date Inactivated Comments Full Code 02/22/2008 6:21 PM 02/25/2008 5:28 PM Code Status History Code Status Date Activated Date Inactivated Comments Full Code 02/22/2008 11:42 AM 02/22/2008 6:21 PM Full Code 01/14/2008 1:06 PM 01/16/2008 7:05 PM Care Teams Glaucoma Specialist Relationship Specialty Start Date End Date Ruth Brandon MD [address] [place] [address] PCP - General Internal Medicine 04/25/21 documented as of this encounter
[2024-05-20 21:50] LABS: Hematocrit (blood only) 20.2 % (37.0-47.0); Hemoglobin 6.4 g/dl (12.0-16.0)
[2024-05-20] MEDS: PANTOprazole 40 MG in DEXTROSE 5% MINI-B 100 ML IV SCH (22:50)
[2024-05-21 02:42] LABS: Basophils # (auto) 0.02 K/uL (0.00-0.20); Basophils % (auto) 0.3 %; Eosinophils # (auto) 0.02 K/uL (0.00-0.50); Eosinophils % (auto) 0.3 %; Hematocrit (blood only) 22.6 % (37.0-47.0); Hemoglobin 7.4 g/dl (12.0-16.0); Immature Granulocytes # (auto) 0.09 K/uL (0.01-0.20); Immature Granulocytes % (auto) 1.3 %; Lymphocytes % (auto) 18.6 %; Mean Corpuscular Hgb Conc 32.7 g/dL (32.0-36.0); Mean Corpuscular Volume 88.6 fL (80.0-100.0); Mean Platelet Volume 9.6 fL (9.4-12.4); Monocytes # (auto) 0.86 K/uL (0.11-0.59); Monocytes % (auto) 12.3 %; Neutrophils # (auto) 4.71 K/uL (1.40-6.50); Neutrophils % (auto) 67.2 %; Nucleated RBC # (auto) 0.03 K/uL (0.00-0.12); Nucleated RBC % (auto) 0.4 %; Platelet Count 117 K/uL (130-400); RDW Standard Deviation 63.1 fL (36.4-46.3); Red Blood Count 2.55 M/uL (4.20-5.40)
[2024-05-21] MEDS ORDERED: SODIUM CHLORIDE 0.9% 250 ML IV PRN (02:54)
--- NOTE | 2024-05-21 02:58 | CT Scan Report ---
Exam(s): CT ABDOMEN + PELVIS Without Contrast EXAM: CT Abdomen and Pelvis Without Intravenous Contrast CLINICAL HISTORY: gi bleed. TECHNIQUE: Axial computed tomography images of the abdomen and pelvis without intravenous contrast. CTDI is 25.68 mGy and DLP is 1119.08 mGy-cm. Automated exposure control was utilized for the study. A dose lowering technique was utilized adhering to the principles of ALARA. COMPARISON: 01/31/2023. FINDINGS: Lung bases: Mild left basilar atelectasis. No mass. No consolidation. ABDOMEN: Liver: Unremarkable. Gallbladder and bile ducts: Unremarkable. No calcified stones. No ductal dilation. Pancreas: Unremarkable. No ductal dilation. Spleen: Unremarkable. No splenomegaly. Adrenals: Unremarkable. No mass. Kidneys and ureters: No obstructive uropathy. No obstructing renal or ureteral calculi. No hydronephrosis or hydroureter. Stomach and bowel: No obstruction or ileus. Slight asymmetric dilatation with mild surrounding infiltration in the mid small bowel the left abdomen. Mild left and sigmoid colon diverticulosis without evidence for diverticulitis. PELVIS: Appendix: No findings to suggest acute appendicitis. Bladder: Unremarkable. No stones. Reproductive: Unremarkable as visualized. ABDOMEN and PELVIS: Intraperitoneal space: No free air. No free fluid. Bones/joints: No acute fracture. Chronic mild compression fractures of T11, L1 and L2. Multilevel degenerative changes. Soft tissues: Unremarkable. Vasculature: Atherosclerotic vascular calcifications. No abdominal aortic aneurysm. Lymph nodes: Unremarkable. No enlarged lymph nodes. IMPRESSION: Slight asymmetric dilatation with mild surrounding infiltration in the mid small bowel the left abdomen, suggestive of a nonspecific enteritis Mild left and sigmoid colon diverticulosis without evidence for diverticulitis. Otherwise no change. Electronically signed by: Trace Ruvalcaba M.D. 05/21/24 02:57 AM
[2024-05-21 03:11] LABS: Anisocytosis Present; Polychromasia 1+
[2024-05-21] MEDS: ACETAMINOPHEN 325 MG TAB PO PRN (04:07)
[2024-05-21] MEDS: LEVOTHYROXINE SODIUM 25 MCG TABLET PO SCH (05:19)
[2024-05-21] MEDS: PYRIDOXINE HCL 50 MG TAB PO SCH (08:04)
[2024-05-21] MEDS: METOPROLOL SUCC 25MG EXT REL TAB PO SCH (08:05)
[2024-05-21] MEDS: ROSUVASTATIN CALCIUM 10 MG TAB PO SCH (08:05)
[2024-05-21] MEDS: CHOLECALCIFEROL 25 MCG (1000 UNITS) TAB PO SCH (08:06)
[2024-05-21] MEDS: AMIODARONE 200 MG TAB PO SCH (08:06)
[2024-05-21] MEDS: CALCIUM CARBONATE 500 MG CHEWABLE TAB PO SCH (08:07)
--- NOTE | 2024-05-21 09:08 | Cardiology Consultation ---
<Statement entered by Kamryn Espinoza, - 05/21/24 11:57> I have reviewed the advanced practitioner's documentation and agree with the plan of care. I accept the responsibility for the associated risk. Pt seen in cardiology consultation due to GIB with supra-therapeutic INR on coumadin for pAF and remote thrombus on pacemaker lead. Pt fortunately is in SR today on ECG with -INSPECTOR [employer]CISION [employer]SEM[employer]Y Her INR has been reversed and her H/H is stablish after 3 units of PRBC and she does not appear to be volume overloaded and symptomatic with SOB Would continue to hold coumadin continue other cardiac medications She is at an acceptable moderate cardiovascular risk for GI procedures; i do recommend an EGD (pt says she was due to have one as it has been a few years since her last) and colonoscopy (it has been over 15 years) to be done as an inpatient this upcoming week no further cardiac testing necessary at this juncture as an inpatient please re-consult as necessary I discussed the case and my recommendations with the hospitalist over tiger text and she agreed with my plan Date of Consultation May 21, 2024 Assessment & Plan (1) Symptomatic anemia: (2) GI bleed: (3) Elevated INR: (4) Chronic systolic heart failure: (5) Paroxysmal atrial fibrillation: Plan Patient admitted with symptomatic anemia, hbg of 6.4 Received 2 units PRBC and hbg 7.4 Receiving 3rd unit PRBC's this morning GI consult recommended. On chronic Coumadin for anticoagulation due to history of PAF and thrombus on in the right atrium likely connected to the pacer lead in Sep 2022, resolved on repeat imaging. Coumadin now on hold. INR > 9.5 treated with Vit K. INR this morning 1.2. Continue to hold Coumadin. Currently on amiodarone and metoprolol to maintain NSR/paced rhythm. No recent Afib episodes. EKG ordered. Ventricular pacing on telemetry. Further recommendations and plan pending assessment with Dr. Espinoza I spent a total of 45 minutes on the date of service in preparation, delivery, and documentation of the care provided to this patient, excluding any time spent in the performance of separately billed services. Rashmi Graham PA-C Department of Cardiology, [facility] This chart was completed in part utilizing Speech Voice Recognition Software. Grammatical errors, random word insertions, pronoun errors, and incomplete sentences are an occasional consequence of this system due to software limitations, ambient noise, and hardware issues. Any formal questions or concerns about the content, text, or information contained within the body of this dictation should be directly addressed to the provider for clarification. History of Present Illness Reason for Consultation: Anticoagulation recommendations Requesting Physician: Viki Hospitalist Attending Physician: Dr. Espinoza History of Present Illness Patient is a 79 year old female admitted to [facility] with worsening SOB, dizziness, bruising. She had recently been to see cardiology and amio was reduced from 200 to 100 mg daily on 05/12. She had INR on 05/17 which was > 9. No bleeding issues and Coumadin was held for 3 days. Then several days later patient reported excessive bruising, black stools, and she became dizzy/lightheaded. Upon arrival to ER, patients hbg was 6.5. INR > 9.5. She received Vit K 10 mg IV and 2 units PRBC. Repeat hbg was 7.4 and she was given 3rd unit PRBC. Repeat hbg pending this morning. At time of consult patient resting in bed. Denies acute cardiac complaints. No chest pain/dyspnea. no dizziness. No palpitations. No orthopnea, PND or edema. She has not had BM since admission. History includes: 1. Nonischemic cardiomyopathy 2. Chronic left bundle branch block 3. Normal coronary arteries by cardiac catheterization June 1999 and February 2012. 4. Mild to moderate mitral insufficiency. 5. Class 2-3 congestive heart failure, systolic with improvement post Bi V pacemaker implantation 6. History of breast carcinoma, right, status post mastectomy, chemotherapy and radiation therapy. 7. [place] [facility] [place] angioplasty of the left subclavian vein with vascular surgery to allow lead placement. Generator exchange December 21, 2023, [facility] 8. Repeat 2D echocardiogram since BIV placement, which demonstrated interval improvement in her LV function to 48%. 9. Status post mechanical fall October 17, 2019 with substantial trauma including sternal fracture , lumbar compression fractures and distal right radial and ulnar fracture 10. Echo October 03, 2022 demonstrating thrombus in the right atrium likely connected to the pacer lead with resolve on warfarin 11. Paroxysmal atrial fibrillation in association with pacer defibrillator going ROSA December 21, 2023 - Gen change December 2023 Allergies Allergy/AdvReac Type Severity Reaction Status Date / Time adhesive Allergy Unknown WELTS AND Verified 05/20/24 15:03 PULLS SKIN bee venom protein (honey bee) Allergy Unknown SWELLING Verified 05/20/24 15:03 Iodinated Contrast Media Allergy Unknown HIVES Verified 05/20/24 15:03 perflutren AdvReac Severe Back pain Verified 01/31/23 17:42 propylene glycol AdvReac Severe Back pain Verified 01/31/23 17:42 Home Medications Medication Instructions Recorded Confirmed Type albuterol sulfate 90 mcg/actuation 2 puff inhalation Q6H PRN 11/18/18 05/20/24 History aerosol inhaler (Ventolin HFA) Shortness Of Breath amoxicillin 500 mg capsule 2,000 mg PO UD PRN prior to dental 11/18/18 05/20/24 History procedures aspirin 81 mg tablet,delayed 81 mg PO QAM 11/18/18 05/20/24 History release calcium carbonate (Calcium 500) 1,250 mg PO QAM 11/18/18 05/20/24 History cholecalciferol (vitamin D3) 50 2,000 unit PO QAM 11/18/18 05/20/24 History mcg (2,000 unit) tablet (Vitamin D3) furosemide 20 mg tablet 20 mg PO 5XWK 11/18/18 05/20/24 History levothyroxine 25 mcg tablet 25 mcg PO QAM 11/18/18 05/20/24 History pantoprazole 40 mg tablet,delayed 40 mg PO QAM 11/18/18 05/20/24 History release pyridoxine (vitamin B6) 100 mg 100 mg PO QAM 11/18/18 05/20/24 History tablet (Vitamin B-6) sacubitril 24 mg-valsartan 26 mg 1 tab PO BID 11/18/18 05/20/24 History tablet (Entresto) rosuvastatin 10 mg tablet 10 mg PO DAILY 12/21/23 05/20/24 History warfarin 5 mg tablet 2.5 mg PO 4XWK 12/21/23 05/20/24 History metoprolol succinate 25 mg 25 mg PO QAM #30 tabs 12/25/23 05/20/24 Rx tablet,extended release 24 hr amiodarone 200 mg tablet 100 mg PO DAILY 05/20/24 05/20/24 History Patient History Medical History (Updated 05/21/24 @ 09:53 by Alexandre Lindo MD) Pacemaker Breast cancer Restless leg syndrome Left bundle branch block Nonischemic cardiomyopathy Distal radius fracture, right Nausea and vomiting after administration of anesthetic agent Osteoarthritis Cancer of right breast 2007--sx, chemo/radiation Atrial fibrillation ICD (implantable cardioverter-defibrillator) in place 08[place] [facility] [place] Surgical History History of bilateral tubal ligation History of colonoscopy History of esophagogastroduodenoscopy (EGD) History of total mastectomy of right breast History of right breast biopsy malignant History of tooth extraction History of cardiac cath x3, no stents--last 2015? @ [facility] with Dr. Gonsalez Family History Other No family history of adverse response to anesthesia Social History Smoking Status: Never smoker Second Hand Exposure: Yes ( smoked); Do You Dip or Chew Tobacco: No; Hx Alcohol Use: No Hx Substance Use: No Preferred Language: Marshallese Communication Ability: Effective Chemical Sprayer Required: No Beliefs That Will Affect Care: None Current Living Situation: Spouse Feels Safe at Home: Yes Safety Concerns: Feels Safe At This Time Assistive Devices: Glasses and Hearing Aid - Bilateral Review of Systems Review of Systems: All systems reviewed & are unremarkable except as noted in HPI & below Physical Exam Constitutional: WD/WN, vitals as above no acute distress Neck: trachea midline, no thyromegaly Respiratory: normal respiratory effort Auscultation: lungs clear to auscultation bilaterally Cardiovascular: Rate/Rhythm: regular rate and regular rhythm Heart Sounds: normal S1 and normal S2; no murmur (I) Vessels: no JVD Extremities: no edema Chest (Breasts): Chest: + pacemaker (well healed without erythema) Gastrointestinal (Abdomen): Inspection/Auscultation: abdomen normal to inspection Percussion/Palpation: abdomen soft; abdomen nontender Skin: ecchymosis of the left arm Neurologic: PERRL, EOMI, accommodation nl, no face palsy, no dysarthria Results & Data Vital Signs (Past 12 Hours) Vital Signs Temp Pulse Pulse Resp BP BP Pulse Ox 05/21/24 06:38 37 C 66 18 99/46 L 05/21/24 05:56 36.5 C 68 18 110/46 L 94 05/21/24 05:38 36.4 C L 70 20 95/51 L 97 05/21/24 05:14 103 H 100/55 L 05/21/24 05:13 96 H 107/65 05/21/24 05:13 81 104/58 L 05/21/24 05:08 37.6 C H 76 20 109/47 L 05/21/24 04:53 37.7 C H 76 20 118/58 L 99 05/21/24 03:54 38.2 C H 75 23 118/50 L 05/21/24 03:44 36.7 C 78 20 131/52 L 99 05/21/24 03:29 36.7 C 74 116/54 L 98 05/21/24 00:06 36.7 C 78 20 116/54 L 100 05/20/24 23:30 36.9 C 72 16 126/58 L 99 05/20/24 23:00 79 05/20/24 23:00 82 05/20/24 22:30 36.8 C 79 16 111/51 L 05/20/24 22:00 37.4 C 73 16 121/53 L 100 05/20/24 21:45 37.2 C 78 20 119/58 L 100 05/20/24 21:44 37.4 C 77 18 118/52 L 100 05/20/24 21:40 37.4 C 73 21 117/75 100 05/20/24 21:25 27.4 C L 80 23 121/55 L 90 05/20/24 21:21 36.6 C 74 20 113/42 L 100 O2 Del Method O2 Flow Rate 05/21/24 06:38 05/21/24 05:56 1 05/21/24 05:38 1 05/21/24 05:14 05/21/24 05:13 05/21/24 05:13 05/21/24 05:08 05/21/24 04:53 1 05/21/24 03:54 05/21/24 03:44 1 05/21/24 03:29 1 05/21/24 00:06 1 05/20/24 23:30 1 05/20/24 23:00 05/20/24 23:00 05/20/24 22:30 05/20/24 22:00 3 05/20/24 21:45 3 05/20/24 21:44 05/20/24 21:40 05/20/24 21:25 05/20/24 21:21 Nasal Cannula 2 Laboratory Results Cardiac Enzymes 05/20/24 05/20/24 05/21/24 Range/Units 13:20 21:25 08:21 AST 36 30 (13-39) U/L Troponin I High Sens 18.1 H 18.7 H (0-14) pg/ml Coagulation 05/20/24 05/21/24 Range/Units 13:20 08:21 PT > 90.0 H 12.5 H (9.0-12.0) Seconds APTT 113 H* (21-31) Seconds CBC 05/20/24 05/20/24 05/21/24 Range/Units 13:20 21:25 02:26 WBC 8.50 7.00 (4.8-10.8) K/ul RBC 2.08 L 2.55 L (4.20-5.40) M/uL Hgb 6.5 L* 6.4 L* 7.4 L (12.0-16.0) g/dl Hct 20.9 L* 20.2 L* 22.6 L (37.0-47.0) % Plt Count 169 117 L (130-400) K/uL Neut # (Auto) 4.71 (1.40-6.50) K/uL Lymph # (Auto) 1.30 (1.20-3.40) K/uL Young # (Auto) 0.86 H (0.11-0.59) K/uL Eos # (Auto) 0.02 (0.00-0.50) K/uL Baso # (Auto) 0.02 (0.00-0.20) K/uL Comprehensive Metabolic Panel 05/20/24 05/21/24 Range/Units 13:20 08:21 Sodium 137 139 (136-145) mmol/L Potassium 4.0 3.6 (3.5-5.1) mmol/L Chloride 102 104 (98-107) mmol/L Carbon Dioxide 29 30 (21-32) mmol/L BUN 33 H 22 (6-23) mg/dl Creatinine 0.94 0.90 (0.6-1.2) mg/dl Glucose 122 H 110 H (70-99(Fasting)) mg/dl Calcium 8.3 L 8.1 L (8.6-10.3) mg/dl AST 36 30 (13-39) U/L ALT 14 12 (7-52) U/L Alkaline Phosphatase 42 41 (34-104) U/L Total Protein 6.0 5.5 L (6.0-8.3) gm/dl Albumin 3.5 3.3 L (3.4-5.0) gm/dl Intake and Output 05/20/24 05/21/24 05/21/24 22:59 06:59 14:59 Intake Total 361 / 972.000 611.000 / 972.000 227.333 / 227.333 Output Total 0 / 100 100 / 100 Balance 361 / 872.000 511.000 / 872.000 227.333 / 227.333 Intake: IV 51 / 151.000 100.000 / 151.000 77.333 / 77.333 PANTOprazole 40 mg In Dextrose 100.000 / 100.000 77.333 / 77.333 5% Mini-B 100 ml @ 8 MG/HR 20 mls/hr IV Q5H [facility] Rx#:[id number] Phytonadione 10 mg In Dextrose 51 / 51 5% 50 ml @ 102 mls/hr IV ONE ONE Rx#:[id number] Oral 0 / 90 90 / 90 Intake (Blood Product) Amt 310 / 731 421 / 731 150 / 150 Packed Cells, Leukoreduced 310 / 310 Unit [id number] Packed Cells, Leukoreduced 0 / 285 285 / 285 Unit [id number] Packed Cells, Leukoreduced 136 / 136 150 / 150 Unit [id number] Output: Urine 0 / 100 100 / 100 Stool 0 / 0 Other: Other Intake Source NPO, Ice chips Weight 81.9 kg 82.6 kg Weight Measurement Method [facility] Diagnostic Findings Telemetry reviewed: Atrial sensed, ventricular paced rhythm EKG - ordered/pending Abdomen/Pelvis CT 05/20/24 16:20 IMPRESSION: Slight asymmetric dilatation with mild surrounding infiltration in the mid small bowel the left abdomen, suggestive of a nonspecific enteritis Mild left and sigmoid colon diverticulosis without evidence for diverticulitis. Otherwise no change Electronically signed by: Trace Ruvalcaba M.D. 05/21/24 02:57 AM Medications Administered Current Inpatient Medications Acetaminophen (Acetaminophen 325 Mg Tab) 650 mg PO QID PRN PRN Reason: pain/fever Stop: 06/20/24 04:02 Last Admin: 05/21/24 04:07 Dose: 650 mg Amiodarone HCl (Amiodarone 200 Mg Tab) 100 mg PO DAILY [facility] Stop: 06/20/24 08:59 Last Admin: 05/21/24 08:06 Dose: 100 mg Calcium Carbonate (Calcium Carbonate 500 Mg Chewable Tab) [facility] Stop: 06/20/24 08:59 Last Admin: 05/21/24 08:07 Dose: 500 mg Pantoprazole Sodium 40 mg/ (Dextrose) 100 mls @ 20 mls/hr IV Q5H [facility] Stop: 06/19/24 22:29 Last Admin: 05/21/24 07:25 Dose: 8 mg/hr, 20 mls/hr Sodium Chloride (Nss) 250 mls @ 15 mls/hr IV .[id number] PRN PRN Reason: For Transfusion Duration Stop: 05/21/24 12:54 Levothyroxine Sodium (Levothyroxine Sodium 25 Mcg Tablet) [facility]: 06/20/24 06:29 Last Admin: 05/21/24 05:19 Dose: 25 mcg Metoprolol Succinate (Metoprolol Succ 25mg Ext Rel Tab) [facility] Stop: 06/20/24 08:59 Last Admin: 05/21/24 08:05 Dose: 25 mg Pyridoxine HCl (Pyridoxine Hcl 50 Mg Tab) [facility] [place] Stop: 06/20/24 08:59 Last Admin: 05/21/24 08:04 Dose: 100 mg Rosuvastatin Calcium (Rosuvastatin Calcium 10 Mg Tab) 10 mg PO DAILY [facility] Stop: 06/20/24 08:59 Last Admin: 05/21/24 08:05 Dose: 10 mg Vitamin D (Cholecalciferol 25 Mcg (1000 Units) Tab) 50 mcg PO QAM [facility] Stop: 06/20/24 08:59 Last Admin: 05/21/24 08:06 Dose: 50 mcg (2) GI bleed GI bleed type/associated pathology: melena Qualified Code(s): K92.1 - Melena
[2024-05-21 09:12] LABS: Albumin Globulin Ratio 1.5 (0.9-2); Albumin Level 3.3 gm/dl (3.4-5.0); BUN Creatinine Ratio 24.4 (10-20); Bilirubin,Total 1.4 mg/dl (0.2-1.0); Calcium 8.1 mg/dl (8.6-10.3); Creatinine Clr Calc Pharmacy 46.4 ml/min; Globulin 2.2 gm/dl (2.5-4.0); Potassium 3.6 mmol/L (3.5-5.1); Total Protein 5.5 gm/dl (6.0-8.3)
[2024-05-21 09:13] LABS: INR 1.2 (0.9-1.1); Prothrombin Time 12.5 Seconds (9.0-12.0)
[2024-05-21 09:37] LABS: Hematocrit (blood only) 25.1 % (37.0-47.0)
--- NOTE | 2024-05-21 09:49 | Gastrointestinal Consultation ---
Date of Consultation May 21, 2024 Assessment & Plan (1) Symptomatic anemia: Agree with transfusion and PPI. Eventually should have at least an EGD if not both EGD/Colonoscopy. (2) Supratherapeutic INR: Agree with holding Coumadin and reversing INR. History of Present Illness Reason for Consultation: Melena Requesting Physician: Eve Turner Attending Physician: Milagro Reardon MD History of Present Illness 79 yo WF on Coumadin and was getting a regular INR check which was found to be elevated. She noticed bruising and decided to come to the hospital. She also states that about a week ago she noticed some melanotic stools but has been c onstipated for the last week. Allergies Allergy/AdvReac Type Severity Reaction Status Date / Time adhesive Allergy Unknown WELTS AND Verified 05/20/24 15:03 PULLS SKIN bee venom protein (honey bee) Allergy Unknown SWELLING Verified 05/20/24 15:03 Iodinated Contrast Media Allergy Unknown HIVES Verified 05/20/24 15:03 perflutren AdvReac Severe Back pain Verified 01/31/23 17:42 propylene glycol AdvReac Severe Back pain Verified 01/31/23 17:42 Home Medications Medication Instructions Recorded Confirmed Type albuterol sulfate 90 mcg/actuation 2 puff inhalation Q6H PRN 11/18/18 05/20/24 History aerosol inhaler (Ventolin HFA) Shortness Of Breath amoxicillin 500 mg capsule 2,000 mg PO UD PRN prior to dental 11/18/18 05/20/24 History procedures aspirin 81 mg tablet,delayed 81 mg PO QAM 11/18/18 05/20/24 History release calcium carbonate (Calcium 500) 1,250 mg PO QAM 11/18/18 05/20/24 History cholecalciferol (vitamin D3) 50 2,000 unit PO QAM 11/18/18 05/20/24 History mcg (2,000 unit) tablet (Vitamin D3) furosemide 20 mg tablet 20 mg PO 5XWK 11/18/18 05/20/24 History levothyroxine 25 mcg tablet 25 mcg PO QAM 11/18/18 05/20/24 History pantoprazole 40 mg tablet,delayed 40 mg PO QAM 11/18/18 05/20/24 History release pyridoxine (vitamin B6) 100 mg 100 mg PO QAM 11/18/18 05/20/24 History tablet (Vitamin B-6) sacubitril 24 mg-valsartan 26 mg 1 tab PO BID 11/18/18 05/20/24 History tablet (Entresto) rosuvastatin 10 mg tablet 10 mg PO DAILY 12/21/23 05/20/24 History warfarin 5 mg tablet 2.5 mg PO 4XWK 12/21/23 05/20/24 History metoprolol succinate 25 mg 25 mg PO QAM #30 tabs 12/25/23 05/20/24 Rx tablet,extended release 24 hr amiodarone 200 mg tablet 100 mg PO DAILY 05/20/24 05/20/24 History Patient History Medical History (Updated 05/21/24 @ 09:53 by Alexandre Lindo MD) Pacemaker Breast cancer Restless leg syndrome Left bundle branch block Nonischemic cardiomyopathy Distal radius fracture, right Nausea and vomiting after administration of anesthetic agent Osteoarthritis Cancer of right breast 2007--sx, chemo/radiation Atrial fibrillation ICD (implantable cardioverter[facility]ill[facility] History of bilateral tubal ligation History of colonoscopy History of esophagogastroduodenoscopy (EGD) History of total mastectomy of right breast History of right breast biopsy malignant History of tooth extraction History of cardiac cath x3, no stents--last 2015? @ [facility] with Dr. Gonsalez Family History Other No family history of adverse response to anesthesia Social History Smoking Status: Never smoker Second Hand Exposure: Yes ( smoked); Do You Dip or Chew Tobacco: No; Hx Alcohol Use: No Hx Substance Use: No Preferred Language: Frisian Communication Ability: Effective Waste Disposal Attendant Required: No Beliefs That Will Affect Care: None Current Living Situation: Spouse Feels Safe at Home: Yes Safety Concerns: Feels Safe At This Time Assistive Devices: Glasses and Hearing Aid - Bilateral Review of Systems Review of Systems: She denies any abdominal pain or vomiting. She states she had both an unremarkable EGD and colonoscopy in 2019 Physical Exam Physical Exam: WD WN WF NAD Eyes: Sclera anicteric Conjunctiva slightly pale ENMT: Tongue and sublingual ecchymotic Respiratory: Clear anteriorly Cardiovascular: Seems reg Gastrointestinal (Abdomen): NL BS, soft, nontender Musculoskeletal: Neg CCE Neurologic: A/O Results & Data Vital Signs (Past 12 Hours) Vital Signs Temp Pulse Pulse Resp BP BP Pulse Ox 05/21/24 06:38 37 C 66 18 99/46 L 05/21/24 05:56 36.5 C 68 18 110/46 L 94 05/21/24 05:38 36.4 C L 70 20 95/51 L 97 05/21/24 05:14 103 H 100/55 L 05/21/24 05:13 96 H 107/65 05/21/24 05:13 81 104/58 L 05/21/24 05:08 37.6 C H 76 20 109/47 L 05/21/24 04:53 37.7 C H 76 20 118/58 L 99 05/21/24 03:54 38.2 C H 75 23 118/50 L 05/21/24 03:44 36.7 C 78 20 131/52 L 99 05/21/24 03:29 36.7 C 74 116/54 L 98 05/21/24 00:06 36.7 C 78 20 116/54 L 100 05/20/24 23:30 36.9 C 72 16 126/58 L 99 05/20/24 23:00 79 05/20/24 23:00 82 05/20/24 22:30 36.8 C 79 16 111/51 L 05/20/24 22:00 37.4 C 73 16 121/53 L 100 O2 Flow Rate 05/21/24 06:38 05/21/24 05:56 1 05/21/24 05:38 1 05/21/24 05:14 05/21/24 05:13 05/21/24 05:13 05/21/24 05:08 05/21/24 04:53 1 05/21/24 03:54 05/21/24 03:44 1 05/21/24 03:29 1 05/21/24 00:06 1 05/20/24 23:30 1 05/20/24 23:00 05/20/24 23:00 05/20/24 22:30 05/20/24 22:00 3 Laboratory Results Reviewed: Significant for Hgb 6.4 and INR > 9.5 Slight thrombocytopenia and imaging ? mild enteritis. PG Care Time/CCT Total # of Minutes Spent Total Time Spent with Patient: Total time spent is greater than 50% in coordination of care (as documented) at patient's floor/unit and/or counseling patient: Coding Level of Care Code 64545 IN/OBS CONSULT LVL 4,60M Diagnoses Symptomatic anemia D64.9 Supratherapeutic INR R79.1
--- NOTE | 2024-05-21 11:37 | Hospitalist Progress Note ---
Date of Service May 21, 2024 Assessment & Plan (1) Implantable cardioverter-defibrillator generator end of life: (2) Chronic systolic heart failure: (3) GERD (gastroesophageal reflux disease): (4) Hypothyroidism: (5) Atrial fibrillation: (6) ICD (implantable cardioverter-defibrillator) in place: (7) Nonischemic cardiomyopathy: (8) GI bleed: (9) Supratherapeutic INR: Plan Pt is an 79-year-old female with a past medical history of nonischemic cardiomyopathy, chronic systolic CHF, HTN, mitral valve disorder, PM w/ defibrillator, atrial thrombus, CAD, AF, Yi's esophagus, GERD, vitamin D deficiency, breast cancer s/p right mastectomy presenting with concern for bruising on her skin and tongue and melanocytic stools. Acute blood loss anemia Suspected UGI bleed Supratherapeutic INR Patient presenting with concern for bruising on skin, tongue and melanocytic stools Hemoglobin of 6.5 noted on arrival in the ED, was previously noted to be 12.3 INR supratherapeutic at greater than 9 Patient was given 1 dose of vitamin K 10 mg in the emergency room CT abd/pelvis noting only nonspecific enteritis AM anemia panel pending On PPI drip, continue Status post transfusion of 2 units of packed red blood cells Holding home Coumadin Continue to monitor H&H and transfuse as needed GI consulted, appreciate recs. Noted the following: -"Agree with transfusion and PPI. Eventually should have at least an EGD if not both EGD/Colonoscopy... Agree with holding Coumadin and reversing INR." Continue to monitor CHF Atrial Fibrillation Nonischemic cardiomyopathy s/p pacemaker placement CAD Hx of Atrial thrombus Patient follows with cardiology, recently had amiodarone dose decreased on May 12, 2024 Continue amiodarone and metoprolol, hold aspirin/warfarin Had pacer defibrillator exchange done in December 2023 Holding home Entresto while monitoring blood pressure Holding home Lasix at this time while monitoring blood pressures as well Continue home statin Enteritis Noted on CT abd/pelvis Stool Cx and c diff studies pending Asymptomatic otherwise, will continue to monitor Hx GERD Continue Protonix drip noted above Diet: clears, advance as tolerated DVT prophylaxis: Warfarinon hold, SCDs, avoid AC with anemia Dispo: PT/OT for further recs once medically stable Admission and Anticipated Discharge Date Admission Date: May 20, 2024 Subjective Patient was seen with at bedside. States that her tongue and soreness in her mouth is getting better. Denied any chest pain, shortness of breath or palpitations. Does note a slight headache. Review of Systems Review of Systems: All systems reviewed & are unremarkable except as noted in Subjective Physical Exam Physical Exam: General: Alert, oriented. No acute distress Skin: bruising on skin especially on left antecubital fossa area Psych: Appropriate mood and affect Neuro: No gross deficits while in bed HEENT: NC/AT, tongue with blue-purple discoloration CV: RRR Resp: no increased effort of breathing Abdomen: Soft, nontender Extremities: moving lower extremities bilaterally. Results & Data Results & Data Vital Signs (Past 12 Hours) Vital Signs Temp Pulse Pulse Resp BP BP Pulse Ox 05/21/24 11:12 36.8 C 68 20 114/49 L 96 05/21/24 06:38 37 C 66 18 99/46 L 05/21/24 05:56 36.5 C 68 18 110/46 L 94 05/21/24 05:38 36.4 C L 70 20 95/51 L 97 05/21/24 05:14 103 H 100/55 L 05/21/24 05:13 96 H 107/65 05/21/24 05:13 81 104/58 L 05/21/24 05:08 37.6 C H 76 20 109/47 L 05/21/24 04:53 37.7 C H 76 20 118/58 L 99 05/21/24 03:54 38.2 C H 75 23 118/50 L 05/21/24 03:44 36.7 C 78 20 131/52 L 99 05/21/24 03:29 36.7 C 74 116/54 L 98 05/21/24 00:06 36.7 C 78 20 116/54 L 100 O2 Del Method O2 Flow Rate 05/21/24 11:12 Room Air 05/21/24 06:38 05/21/24 05:56 1 05/21/24 05:38 1 05/21/24 05:14 05/21/24 05:13 05/21/24 05:13 05/21/24 05:08 05/21/24 04:53 1 05/21/24 03:54 10/05/24 03:44 1 05/21/24 03:29 1 05/21/24 00:06 1 Diagnostic Findings Abdomen/Pelvis CT 05/20/24 16:20 Exam(s): CT ABDOMEN + PELVIS Without Contrast EXAM: CT Abdomen and Pelvis Without Intravenous Contrast CLINICAL HISTORY: gi bleed. TECHNIQUE: Axial computed tomography images of the abdomen and pelvis without intravenous contrast. CTDI is 25.68 mGy and DLP is 1119.08 mGy-cm. Automated exposure control was utilized for the study. A dose lowering technique was utilized adhering to the principles of ALARA. COMPARISON: 01/31/2023. FINDINGS: Lung bases: Mild left basilar atelectasis. No mass. No consolidation. ABDOMEN: Liver: Unremarkable. Gallbladder and bile ducts: Unremarkable. No calcified stones. No ductal dilation. Pancreas: Unremarkable. No ductal dilation. Spleen: Unremarkable. No splenomegaly. Adrenals: Unremarkable. No mass. Kidneys and ureters: No obstructive uropathy. No obstructing renal or ureteral calculi. No hydronephrosis or hydroureter. Stomach and bowel: No obstruction or ileus. Slight asymmetric dilatation with mild surrounding infiltration in the mid small bowel the left abdomen. Mild left and sigmoid colon diverticulosis without evidence for diverticulitis. PELVIS: Appendix: No findings to suggest acute appendicitis. Bladder: Unremarkable. No stones. Reproductive: Unremarkable as visualized. ABDOMEN and PELVIS: Intraperitoneal space: No free air. No free fluid. Bones/joints: No acute fracture. Chronic mild compression fractures of T11, L1 and L2. Multilevel degenerative changes. Soft tissues: Unremarkable. Vasculature: Atherosclerotic vascular calcifications. No abdominal aortic aneurysm. Lymph nodes: Unremarkable. No enlarged lymph nodes. IMPRESSION: Slight asymmetric dilatation with mild surrounding infiltration in the mid small bowel the left abdomen, suggestive of a nonspecific enteritis Mild left and sigmoid colon diverticulosis without evidence for diverticulitis. Otherwise no change. Electronically signed by: Trace Ruvalcaba M.D. 05/21/24 02:57 AM (3) GERD (gastroesophageal reflux disease) Esophagitis presence: without esophagitis Qualified Code(s): K21.9 - Gastro- esophageal reflux disease without esophagitis (4) Hypothyroidism Hypothyroidism type: unspecified Qualified Code(s): E03.9 - Hypothyroidism, unspecified (8) GI bleed GI bleed type/associated pathology: melena Qualified Code(s): K92.1 - Melena
[2024-05-21 20:30] LABS: Adenovirus F 40/41 PCR Not Detected (NotDetected); Astrovirus PCR Not Detected (NotDetected); Campylobacter PCR Not Detected (NotDetected); Cryptosporidium PCR Not Detected (NotDetected); Cyclospora cayetanensis PCR Not Detected (NotDetected); Entamoeba histolytica PCR Not Detected (NotDetected); Enteroaggregative E.coli(EAEC) Not Detected (NotDetected); Enteropathogenic E.coli (EPEC) Not Detected (NotDetected); Enterotoxigenic E.coli (ETEC) Not Detected (NotDetected); Giardia lamblia PCR Not Detected (NotDetected); Norovirus GI/GII PCR Not Detected (NotDetected); Plesiomonas shigelloides PCR Not Detected (NotDetected); Rotavirus A PCR Not Detected (NotDetected); Salmonella PCR Not Detected (NotDetected); Sapovirus PCR Not Detected (NotDetected); Shiga-like Toxin E.coli (STEC) Not Detected (NotDetected); Shigella/Enteroinvasive E.coli Not Detected (NotDetected); Vibrio cholerae PCR Not Detected (NotDetected); Vibrio species PCR Not Detected (NotDetected); Yersinia enterocolitica PCR Not Detected (NotDetected)
[2024-05-22 06:38] LABS: Basophils # (auto) 0.01 K/uL (0.00-0.20); Basophils % (auto) 0.2 %; Eosinophils # (auto) 0.05 K/uL (0.00-0.50); Eosinophils % (auto) 0.9 %; Hematocrit (blood only) 23.9 % (37.0-47.0); Hemoglobin 7.8 g/dl (12.0-16.0); Immature Granulocytes # (auto) 0.03 K/uL (0.01-0.20); Immature Granulocytes % (auto) 0.6 %; Lymphocytes # (auto) 1.02 K/uL (1.20-3.40); Lymphocytes % (auto) 19.1 %; Mean Corpuscular Hemoglobin 29.7 pg (25.0-34.0); Mean Corpuscular Hgb Conc 32.6 g/dL (32.0-36.0); Mean Corpuscular Volume 90.9 fL (80.0-100.0); Monocytes # (auto) 0.48 K/uL (0.11-0.59); Neutrophils # (auto) 3.75 K/uL (1.40-6.50); Neutrophils % (auto) 70.2 %; Nucleated RBC # (auto) 0.03 K/uL (0.00-0.12); Nucleated RBC % (auto) 0.6 %; Platelet Count 112 K/uL (130-400); RDW Coefficient of Variation 19.3 % (11.5-14.5); RDW Standard Deviation 61.4 fL (36.4-46.3); Red Blood Count 2.63 M/uL (4.20-5.40); White Blood Count 5.34 K/ul (4.8-10.8)
[2024-05-22 06:58] LABS: Albumin Globulin Ratio 1.4 (0.9-2); BUN Creatinine Ratio 16.7 (10-20); Calcium 7.8 mg/dl (8.6-10.3); Creatinine Clr Calc Pharmacy 54.4 ml/min; Globulin 2.1 gm/dl (2.5-4.0); Magnesium 1.8 mg/dl (1.7-2.4); Phosphorus 2.8 mg/dl (2.5-4.9); Potassium 3.4 mmol/L (3.5-5.1); Total Protein 5.1 gm/dl (6.0-8.3)
[2024-05-22 07:04] LABS: Polychromasia 2+
[2024-05-22 07:10] LABS: INR 1.3 (0.9-1.1); Prothrombin Time 13.7 Seconds (9.0-12.0)
[2024-05-22 07:16] LABS: Ferritin 41.2 ng/ml (8-388)
[2024-05-22 07:26] LABS: Folate (Folic Acid),Ser orPlas > 22.30 ng/ml (>5.38)
[2024-05-22 07:27] LABS: Vitamin B12 261 pg/ml (180-914)
[2024-05-22] MEDS: POTASSIUM CHLORIDE CRTAB 20 MEQ TABCR PO STA (08:34)
[2024-05-22] MEDS: IRON SUCROSE 200 MG in 0.9 % SODIUM CHLORIDE 100 ML IV ONE (09:10)
[2024-05-22] MEDS ORDERED: SIMETHICONE (ENDO) IR PRN (09:46)
--- NOTE | 2024-05-22 09:46 | Gastroenterology Progress Note ---
Date of Service May 22, 2024 Assessment & Plan (1) GI bleed: Plan: With elevated BUN suspect upper source. Plan Discussed EGD and if negative colonoscopy and possible SB Video Capsule Endoscopy. The EGD and colonoscopy procedures, alternatives including no work up or treatment, risks and benefits were discussed. Among the risks discussed included cardiorespiratory suppression, aspiration, bleeding, failure to diagnose cancer or other pathology and perforation requiring surgery. In addition we discussed that if specimens are obtained it may be deemed beneficial to send these for genetic/DNA testing. The patient claimed to understand all that was discussed, consented to all and all of her questions were answered. Plan to proceed with EGD today and if negative colonoscopy tomorrow. Admission and Anticipated Discharge Date Admission Date: May 20, 2024 Subjective Patient c/o some uncomfortable pillows causing head pain. She had no vomiting and tolerated po yestereday. Last night had large melanotic BM Review of Systems Gastrointestinal: As per HPI Physical Exam Physical Exam: WD WN WF NAD Respiratory: Clear anteriorly Cardiovascular: Reg Gastrointestinal (Abdomen): NL BS, soft, nontender Results & Data Results & Data Vital Signs (Past 12 Hours) Vital Signs Temp Pulse Pulse Resp BP Pulse Ox O2 Del Method 05/22/24 07:24 37.2 C 76 19 122/70 97 Nasal Cannula 05/22/24 03:35 36.7 C 75 20 123/72 98 Nasal Cannula 05/22/24 00:16 72 05/21/24 23:00 36.7 C 73 19 117/70 100 Nasal Cannula O2 Flow Rate 05/22/24 07:24 2.0 05/22/24 03:35 05/22/24 00:16 05/21/24 23:00 Laboratory Results Hgb 7.8; Plts 112 INR improved to 1.3 PG Care Time/CCT Total # of Minutes Spent Total Time Spent with Patient: Total time spent is greater than 50% in coordination of care (as documented) at patient's floor/unit and/or counseling patient: Coding Level of Care Code 29095 SUB INP/OBS CARE 125MIN Diagnoses Gastrointestinal hemorrhage with melena K92.1 GI bleed type/associated pathology: melena (1) GI bleed GI bleed type/associated pathology: melena Qualified Code(s): K92.1 - Melena
[2024-05-22] MEDS ORDERED: SUCCINYLCHOLINE CHLORIDE 20 MG/ML 10 ML VIAL IV ONE (09:50)
[2024-05-22] MEDS ORDERED: PROPOFOL IV EMULSION 10 MG/ML 20 ML VIAL IV ONE ×2 (09:50)
--- NOTE | 2024-05-22 10:25 | Anesthesiology Consultation ---
Date of Service May 22, 2024 Assessment & Plan Chart Review Chart Review: Acceptable Risk for Surgery and Patient NOT seen in Pre Admission Testing Consults Requested none ASA [id number] Proposed Anesthesia Anesthesia Type: General History Surgery Operation Date: 05/22/24 10:00 Proposed Procedures p Esophagogastroduodenoscopy - Alexandre Lindo MD Height/Weight Height: 4 ft 11 in Weight: 85 kg Allergies Allergy/AdvReac Type Severity Reaction Status Date / Time adhesive Allergy Unknown WELTS AND Verified 05/20/24 15:03 PULLS SKIN bee venom protein (honey bee) Allergy Unknown SWELLING Verified 05/20/24 15:03 Iodinated Contrast Media Allergy Unknown HIVES Verified 05/20/24 15:03 perflutren AdvReac Severe Back pain Verified 01/31/23 17:42 propylene glycol AdvReac Severe Back pain Verified 01/31/23 17:42 Medications Home Medications Medication Instructions Recorded Confirmed Last Taken albuterol sulfate 90 mcg/actuation 2 puff inhalation Q6H PRN 11/18/18 05/20/24 05/05/18 aerosol inhaler (Ventolin HFA) Shortness Of Breath amoxicillin 500 mg capsule 2,000 mg PO UD PRN prior to dental 11/18/18 05/20/24 11/16/18 procedures aspirin 81 mg tablet,delayed 81 mg PO QAM 11/18/18 05/20/24 12/21/23 release calcium carbonate (Calcium 500) 1,250 mg PO QAM 11/18/18 05/20/24 12/20/23 cholecalciferol (vitamin D3) 50 2,000 unit PO QAM 11/18/18 05/20/24 12/20/23 mcg (2,000 unit) tablet (Vitamin D3) furosemide 20 mg tablet 20 mg PO 5XWK 11/18/18 05/20/24 12/18/23 levothyroxine 25 mcg tablet 25 mcg PO QAM 11/18/18 05/20/24 12/21/23 pantoprazole 40 mg tablet,delayed 40 mg PO QAM 11/18/18 05/20/24 12/21/23 release pyridoxine (vitamin B6) 100 mg 100 mg PO QAM 11/18/18 05/20/24 12/20/23 tablet (Vitamin B-6) sacubitril 24 mg-valsartan 26 mg 1 tab PO BID 11/18/18 05/20/24 12/21/23 tablet (Entresto) rosuvastatin 10 mg tablet 10 mg PO DAILY 12/21/23 05/20/24 12/21/23 warfarin 5 mg tablet 2.5 mg PO 4XWK 12/21/23 05/20/24 12/20/23 metoprolol succinate 25 mg 25 mg PO QAM #30 tabs 12/25/23 05/20/24 Unknown tablet,extended release 24 hr amiodarone 200 mg tablet 100 mg PO DAILY 05/20/24 05/20/24 Unknown Active Medications Generic Name Dose Route Start Last Admin Trade Name Freq PRN Reason Stop Dose Admin Acetaminophen 650 mg 05/21/24 04:03 05/21/24 15:45 Acetaminophen 325 Mg Tab PO 06/20/24 04:02 650 mg QID PRN Administration pain/fever Amiodarone HCl 100 mg 05/21/24 09:00 05/22/24 08:35 Amiodarone 200 Mg Tab PO 06/20/24 08:59 100 mg DAILY ERIKA Administration Calcium Carbonate 500 mg 05/21/24 09:00 05/22/24 08:34 Calcium Carbonate 500 Mg Chewable Tab PO 06/20/24 08:59 500 mg QAM ERIKA Administration Pantoprazole Sodium 40 mg/ 100 mls @ 20 mls/hr 05/20/24 22:30 05/22/24 10:05 Dextrose IV 06/19/24 22:29 8 mg/hr Q5H ERIKA 20 mls/hr Administration 8 MG/HR Levothyroxine Sodium 25 mcg 05/21/24 06:30 05/22/24 05:04 Levothyroxine Sodium 25 Mcg Tablet PO 06/20/24 06:29 25 mcg DAILYBB ERIKA Administration Metoprolol Succinate 25 mg 05/21/24 09:00 05/22/24 08:35 Metoprolol Succ 25mg Ext Rel Tab PO 06/20/24 08:59 25 mg QAM ERIKA Administration Pyridoxine HCl 100 mg 05/21/24 09:00 05/22/24 08:36 Pyridoxine Hcl 50 Mg Tab PO 06/20/24 08:59 100 mg QAM ERIKA Administration Rosuvastatin Calcium 10 mg 05/21/24 09:00 05/22/24 08:35 Rosuvastatin Calcium 10 Mg Tab PO 06/20/24 08:59 10 mg DAILY ERIKA Administration Vitamin D 50 mcg 05/21/24 09:00 05/22/24 08:36 Cholecalciferol 25 Mcg (1000 Units) Tab PO 06/20/24 08:59 50 mcg QAM ERIKA Administration Past Medical History Medical History Pacemaker Breast cancer Restless leg syndrome Left bundle branch block Nonischemic cardiomyopathy Distal radius fracture, right Nausea and vomiting after administration of anesthetic agent Osteoarthritis Cancer of right breast 2007--sx, chemo/radiation Atrial fibrillation ICD (implantable cardioverter-defibrillator) [facility] Anemia HLD Hypothyroidism PONV morbid obesity Exercise / Class Metabolic Activity III < 4 Walking/Shop/Light housework Past Family History Family History Other No family history of adverse response to anesthesia Past Surgical History Surgical History History of bilateral tubal ligation History of colonoscopy History of esophagogastroduodenoscopy (EGD) History of total mastectomy of right breast History of right breast biopsy malignant History of tooth extraction History of cardiac cath x3, no stents--last 2015? @ [facility] with Dr. Wallace Starkey AICD pacemaker Past Anesthesia History No Hx of Anesthesia Complications and No Family Hx of Anesthesia Complications History of PONV No Hx of Motion Sickness and History of PONV Social History Smoking Status: Never smoker Do You Dip or Chew Tobacco: No Hx Alcohol Use: No Hx Substance Use: No substance use type: does not use Physical Exam Vital Signs Last Vital Signs Temp 37.2 C 05/22/24 07:24 Pulse 76 05/22/24 07:24 Resp 19 05/22/24 07:24 BP 122/70 05/22/24 07:24 Pulse Ox 97 05/22/24 07:24 O2 Del Method Nasal Cannula 05/22/24 07:24 O2 Flow Rate 2.0 05/22/24 07:24 Testing Laboratory Results 05/22/24 06:22 05/22/24 06:22 PT 13.7 Seconds (9.0-12.0) H 05/22/24 06:22 INR 1.3 (0.9-1.1) H 05/22/24 06:22 APTT 113 Seconds (21-31) H* 05/20/24 13:20 Blood Type O Positive 05/20/24 13:15 Antibody Screen NEGATIVE 05/20/24 13:15 Electrocardiogram Date: 05/21/24 Findings: + pertinent finding (A sensed, V paced rhthym) Chest X-Ray Date: 12/21/23 Findings: + NAD, + cardiomegaly, + atherosclerosis of thoracic aorta and + other (AICD)
--- NOTE | 2024-05-22 10:27 | Communication Note ---
Date of Service: May 22, 2024 Pt had cardiac cath in 1998 ans 2011 w/ clean coronary arteries Since the AICD / BiV pacer has been implanted,EF has improved to 48%
--- NOTE | 2024-05-22 11:39 | GI REPORT ---
[facility] Patient: MAHAD DUKES : 1945 Sex at : Female Age: 79 Years Procedure: Upper GI endoscopy Date: 05/22/2024 Attending Physician: Alexandre Lindo MD Referring MD: Referred Self Indications: - Suspected upper gastrointestinal bleeding - Melena Medications: - General Anesthesia - See the Anesthesia note for documentation of the administered medications Complications: - No immediate complications. Estimated Blood Loss: - Estimated blood loss: None. Procedure: - ASA Grade Assessment: III - A patient with severe systemic disease. - The egd scope was introduced through the mouth and advanced to the second part of the duodenum. - The upper GI endoscopy was accomplished without difficulty. - The patient tolerated the procedure well. Findings: - The examined esophagus was normal. - A 5 cm hiatal hernia was present. - The examined duodenum was normal. - Two small angioectasias with no bleeding were found in the gastric body. Coagulation for bleeding prevention using argon plasma was successful. Impression: - Normal esophagus. - 5 cm hiatal hernia. - Normal examined duodenum. - Two non-bleeding angioectasias in the stomach. Treated with argon plasma coagulation (APC). - No specimens collected. Recommendation: - Advance diet. OK from GI standpoint to resume anticoagulation if needed in 24 hrs but would keep INR on low side of therapeutic range. Procedure Code(s): - 15271, Esophagogastroduodenoscopy, flexible, transoral; with control of bleeding, any method Diagnosis Code(s): - K92.1, Melena (includes Hematochezia) - K44.9, Diaphragmatic hernia without obstruction or gangrene - K31.819, Angiodysplasia of stomach and duodenum without bleeding CPT(R) - 2023 copyright [employer]. All Rights Reserved. The CPT codes, CCI edits and ICD codes generated are intended as suggestions and were generated based on input data. These codes are preliminary and upon talend etl developer review may be revised to meet current compliance and payer requirements. The provider is responsible for the final determination of appropriate codes, and modifiers. Alexandre Lindo MD This document has been electronically signed. Note Initiated:05/22/2024 Note Completed:05/22/2024 11:39 AM \\[id number]
[2024-05-22] MEDS ORDERED: ATROPINE SULFATE 0.1 MG/ML 10ML SYR IV PRN (11:51)
[2024-05-22] MEDS ORDERED: ePHEDrine sulfate 50 MG/ML AMP IV PRN (11:51)
--- NOTE | 2024-05-22 11:52 | Communication Note ---
Date of Service: May 22, 2024 See Procedure note for complete report. Summary: 2 non-bleeding vascular ectasia of gastric body - ablated with APC Some small, benign appearing gastric polyps 5 cm hiatal hernia Rec: Can advance diet Can restart anticoagulation if needed in 24 hrs but would try and keep INR in low therapeutic range. It's possible she has more vascular ectasia in SB so if rebleeds would do either CTA or bleeding scan and consider SB Video Capsule Endoscopy.
--- NOTE | 2024-05-22 12:05 | Anesthesiology Progress Note ---
Date of Service May 22, 2024 Anesthesia Post Procedure Vital Signs Vital Signs: Temp Pulse Pulse Resp BP BP Pulse Ox 05/22/24 11:55 36.7 C 72 23 137/54 L 94 05/22/24 11:45 76 20 126/56 L 94 05/22/24 11:35 77 20 136/68 98 05/22/24 11:28 36 C L 84 18 132/65 97 05/22/24 07:24 37.2 C 76 19 122/70 97 05/22/24 03:35 36.7 C 75 20 123/72 98 05/22/24 00:16 72 05/21/24 23:00 36.7 C 73 19 117/70 100 05/21/24 19:35 36.8 C 73 16 105/63 94 05/21/24 14:55 37.1 C 71 18 116/53 L 96 05/21/24 14:00 76 O2 Del Method O2 Flow Rate 05/22/24 11:55 Nasal Cannula 2 05/22/24 11:45 Oxymask 3 05/22/24 11:35 Oxymask 6 05/22/24 11:28 Oxymask 8 05/22/24 07:24 Nasal Cannula 2.0 05/22/24 03:35 Nasal Cannula 05/22/24 00:16 05/21/24 23:00 Nasal Cannula 05/21/24 19:35 Room Air 05/21/24 14:55 Room Air 05/21/24 14:00 Transfer of Care Handoff Completed per policy Notes Mental Status: alert / awake / arousable Patient Amnestic to Procedure: Yes Nausea / Vomiting: adequately controlled Pain: adequately controlled Airway Patency, RR, SpO2: stable & adequate BP & HR: stable & adequate Hydration State: stable & adequate Anesthetic Complications: no major complications apparent
--- NOTE | 2024-05-22 12:16 | Hospitalist Progress Note ---
Date of Service May 22, 2024 Assessment & Plan (1) Implantable cardioverter-defibrillator generator end of life: (2) Chronic systolic heart failure: (3) GERD (gastroesophageal reflux disease): (4) Hypothyroidism: (5) Atrial fibrillation: (6) ICD (implantable cardioverter-defibrillator) in place: (7) Nonischemic cardiomyopathy: (8) GI bleed: (9) Supratherapeutic INR: Plan Pt is an 79-year-old female with a past medical history of nonischemic cardiomyopathy, chronic systolic CHF, HTN, mitral valve disorder, PM w/ defibrillator, atrial thrombus, CAD, AF, Yi's esophagus, GERD, vitamin D deficiency, breast cancer s/p right mastectomy presenting with concern for bruising on her skin and tongue and melanocytic stools. Acute blood loss anemia Suspected UGI bleed Supratherapeutic INR Melanocytic stools Patient presenting with concern for bruising on skin, tongue and melanocytic stools Hemoglobin of 6.5 noted on arrival in the ED, was previously noted to be 12.3 INR supratherapeutic at greater than 9 Patient was given 1 dose of vitamin K 10 mg in the emergency room CT abd/pelvis noting only nonspecific enteritis FOBT positive AM anemia panel noting iron deficiency anemia, s/p IV Venofer Status post transfusion of 3 units of packed red blood cells Holding home Coumadin Continue to monitor H&H and transfuse as needed GI consulted, appreciate recs. Noted the following: - status post EGD on 05/22/2024 "-Noted two non-bleeding angioectasias in the stomach. Treated with argon plasma coagulation (APC). -Can advance diet -Can restart anticoagulation if needed in 24 hrs but would try and keep INR in low therapeutic range. It's possible she has more vascular ectasia in SB so if rebleeds would do either CTA or bleeding scan and consider SB Video Capsule Endoscopy." PPI drip transitioned to IV pantoprazole pushes Continue to monitor Headache Subdural hemorrhages Patient with persistent headache GCS score of [address] obtained on 05/22/2024 which noted trace subdural hemorrhages Case discussed with neurology who originally recommended transfer for neurosurgical care Case discussed via transfer center with neurosurgeon at [facility] Dr. Kahn who advised that patient likely had brain bleed when she presented, and given reversal and low INR for the past 2 days he does not anticipate any progression or worsening which would require transfer. Advised repeat head CT 6 hours later, and if worsening at that time he can be contacted via [place] text for possible transfer. Repeat head CT ordered Neurology consulted appreciate recs Continue to monitor patient's neurological and mental status, repeat imaging for any acute change CHF Atrial Fibrillation Nonischemic cardiomyopathy s/p pacemaker placement CAD Hx of Atrial thrombus Patient follows with cardiology, recently had amiodarone dose decreased on May 12, 2024 Continue amiodarone and metoprolol, hold aspirin/warfarin Had pacer defibrillator exchange done in December 2023 Holding home Entresto while monitoring blood pressure Holding home Lasix at this time while monitoring blood pressures as well Continue home statin Cardiology consulted for further recs for anticoagulation in the setting of bleeding above and subdural hemorrhages. Originally signed off but will recon sult in the a.m. given new findings of subdural hemorrhages Enteritis Noted on CT abd/pelvis Stool Cx and c diff studies negative Asymptomatic otherwise, will continue to monitor Hx GERD Continue Protonix Diet: clears, advance as tolerated DVT prophylaxis: Warfarinon hold, SCDs, avoid AC with anemia Dispo: PT/OT for further recs once medically stable Admission and Anticipated Discharge Date Admission Date: May 20, 2024 Subjective patient seen multiple times during the day. Seen initially after her EGD. Notes that she is having a sore throat which typically happens after an EGD. also noting headache is persistent. Denies any changes to vision. Head CT was obtained which noted subdural bleeds which were trace. Patient's and has been seen once more with discussion of findings. Case was discussed with neurology who then recommended transfer. Again discussed with patient and who advised they would like to be transferred to [facility] if needed. [facility] was contacted but per neurosurgeon Dr. Kahn, stated that this patient was stable, to repeat head CT at about 630 to 7 PM. Noted that he anticipated it would be normal however if not normal he should be contacted and transfer can be initiated at that time. Review of Systems Review of Systems: All systems reviewed & are unremarkable except as noted in Subjective Physical Exam Physical Exam: General: Alert, oriented. No acute distress Skin: bruising on skin especially on left antecubital fossa area Psych: Appropriate mood and affect Neuro: No gross deficits while in bed HEENT: NC/AT, tongue with blue-purple discoloration CV: RRR Resp: no increased effort of breathing Abdomen: Soft, nontender Extremities: moving lower extremities bilaterally. Results & Data Results & Data Vital Signs (Past 12 Hours) Vital Signs Temp Pulse Pulse Resp BP BP Pulse Ox 05/22/24 11:55 36.7 C 72 23 137/54 L 94 05/22/24 11:45 76 20 126/56 L 94 05/22/24 11:35 77 20 136/68 98 05/22/24 11:28 36 C L 84 18 132/65 97 05/22/24 07:24 37.2 C 76 19 122/70 97 05/22/24 03:35 36.7 C 75 20 123/72 98 05/22/24 00:16 72 O2 Del Method O2 Flow Rate 05/22/24 11:55 Nasal Cannula 2 05/22/24 11:45 Oxymask 3 05/22/24 11:35 Oxymask 6 05/22/24 11:28 Oxymask 8 05/22/24 07:24 Nasal Cannula 2.0 05/22/24 03:35 Nasal Cannula 05/22/24 00:16 Diagnostic Findings Abdomen/Pelvis CT 05/20/24 16:20 Exam(s): CT ABDOMEN + PELVIS Without Contrast EXAM: CT Abdomen and Pelvis Without Intravenous Contrast CLINICAL HISTORY: gi bleed. TECHNIQUE: Axial computed tomography images of the abdomen and pelvis without intravenous contrast. CTDI is 25.68 mGy and DLP is 1119.08 mGy-cm. Automated exposure control was utilized for the study. A dose lowering technique was utilized adhering to the principles of ALARA. COMPARISON: 01/31/2023. FINDINGS: Lung bases: Mild left basilar atelectasis. No mass. No consolidation. ABDOMEN: Liver: Unremarkable. Gallbladder and bile ducts: Unremarkable. No calcified stones. No ductal dilation. Pancreas: Unremarkable. No ductal dilation. Spleen: Unremarkable. No splenomegaly. Adrenals: Unremarkable. No mass. Kidneys and ureters: No obstructive uropathy. No obstructing renal or ureteral calculi. No hydronephrosis or hydroureter. Stomach and bowel: No obstruction or ileus. Slight asymmetric dilatation with mild surrounding infiltration in the mid small bowel the left abdomen. Mild left and sigmoid colon diverticulosis without evidence for diverticulitis. PELVIS: Appendix: No findings to suggest acute appendicitis. Bladder: Unremarkable. No stones. Reproductive: Unremarkable as visualized. ABDOMEN and PELVIS: Intraperitoneal space: No free air. No free fluid. Bones/joints: No acute fracture. Chronic mild compression fractures of T11, L1 and L2. Multilevel degenerative changes. Soft tissues: Unremarkable. Vasculature: Atherosclerotic vascular calcifications. No abdominal aortic aneurysm. Lymph nodes: Unremarkable. No enlarged lymph nodes. IMPRESSION: Slight asymmetric dilatation with mild surrounding infiltration in the mid small bowel the left abdomen, suggestive of a nonspecific enteritis Mild left and sigmoid colon diverticulosis without evidence for diverticulitis. Otherwise no change. Electronically signed by: Trace Ruvalcaba M.D. 05/21/24 02:[address] 05/22/24 12:48 CT OF THE HEAD WITHOUT CONTRAST CLINICAL HISTORY: persistent KELLY, Hx of supraINR, r/o bleed COMPARISON STUDY: Head CT December 21, 2023. CT DOSE: 547.75 mGy.cm TECHNIQUE: Helical axial images of the head were obtained without IV contrast. Automated exposure control was utilized for the study. A dose lowering technique was utilized adhering to the principles of ALARA. FINDINGS: There is trace acute subdural hemorrhage along the anterior and posterior aspects of the falx. There may also be trace acute subdural hemorrhage overlying the bilateral temporal lobes. There is no mass effect. Ventricular system is unremarkable. Basal cisterns are patent. There are no findings to suggest acute dural sinus thrombosis or acute territorial infarct. There are no calvarial fractures. IMPRESSION: 1. Trace acute subdural hemorrhage along anterior and posterior aspects of the falx. Possible trace acute subdural hemorrhage overlying the bilateral temporal lobes. No mass effect. A follow-up head CT in 24 hours is recommended. This finding will be called/faxed to the ordering provider at time of dictation. 2. No calvarial fractures. ACT 112: Negative or not required by law. Electronically signed by: Golden Larsen M.D. 05/22/2024 1:35 PM (3) GERD (gastroesophageal reflux disease) Esophagitis presence: without esophagitis Qualified Code(s): K21.9 - Gastro- esophageal reflux disease without esophagitis (4) Hypothyroidism Hypothyroidism type: unspecified Qualified Code(s): E03.9 - Hypothyroidism, unspecified (8) GI bleed GI bleed type/associated pathology: melena Qualified Code(s): K92.1 - Courtney
--- NOTE | 2024-05-22 13:37 | CT Scan Report ---
CT OF THE HEAD WITHOUT CONTRAST CLINICAL HISTORY: persistent KLELY, Hx of supraINR, r/o bleed COMPARISON STUDY: Head CT December 21, 2023. CT DOSE: 547.75 mGy.cm TECHNIQUE: Helical axial images of the head were obtained without IV contrast. Automated exposure con trol was utilized for the study. A dose lowering technique was utilized adhering to the principles o f ALARA. FINDINGS: There is trace acute subdural hemorrhage along the anterior and posterior aspects of the fa lx. There may also be trace acute subdural hemorrhage overlying the bilateral temporal lobes. There i s no mass effect. Ventricular system is unremarkable. Basal cisterns are patent. There are no finding s to suggest acute dural sinus thrombosis or acute territorial infarct. There are no calvarial fractu res. IMPRESSION: 1. Trace acute subdural hemorrhage along anterior and posterior aspects of the falx. Possible trace a cute subdural hemorrhage overlying the bilateral temporal lobes. No mass effect. A follow-up head CT in 24 hours is recommended. This finding will be called/faxed to the ordering provider at time of dic tation. 2. No calvarial fractures. ACT 112: Negative or not required by law. Electronically signed by: Golden Larsen M.D. 05/22/2024 1:35 PM
--- NOTE | 2024-05-22 14:33 | Electrocardiogram Report ---
Test Reason : Blood Pressure : */* mmHG Vent. Rate : 68 BPM Atrial Rate : 68 BPM P-R Int : 160 ms QRS Dur : 134 ms QT Int : 484 ms P-R-T Axes : 57 -68 22 degrees QTcB Int : 514 ms Atrial-sensed ventricular-paced rhythm Abnormal ECG When compared with ECG of 25-Dec-2023 05:09, Vent. rate has decreased by 14 bpm Confirmed by Efrain Martinez ([id number]) on 05/22/2024 2:33:40 PM Referred By: REFERRED SELF Confirmed By: Efrain Martinez
--- NOTE | 2024-05-22 17:18 | Neurology Consultation ---
Date of Consultation May 22, 2024 Assessment & Plan (1) Spontaneous intracranial hemorrhage: Recommend continue frequent neurological assessments Continue to monitor mentation Monitor cephalgia and treat/control pain Obtain stat CT brain without contrast for any acute neurological decline Consult Neurosurgery- have discussed directly will await follow up CT brain without contrast Continue to hold full anticoagulation, ASA, NSAIDs and antiplatelet medications Keep SBP <140 in setting of nontraumatic ICH Keep HOB elevated Follow up CT brain without contrast Continue to monitor/control blood glucose SCDs as VTE prophylaxis Telehealth Consultation Telehealth Information Telehealth Information: I performed this visit using a real-time telehealth connection between my location and the patients location ([facility]). After connecting through interactive tele-video, patient was identified by name and date of and/or wristband check.Patient (or authorized healthcare appliance service representative) was informed that this was a telemedicine visit and it was being conducted confidentially over secure lines. My office door was closed and no one else was present in the room with me.Patient (or authorized healthcare appliance service representative) provided consent to proceed with the visit, expressed an understanding of privacy and security of the telemedicine visit, and gave permission to have a hospital appliance service representative in the room in order to assist with the visit and to conduct portions of the visit, as needed. I informed the patient (or authorized healthcare appliance service representative) that I reviewed their record and presented the opportunity for them to ask any questions regarding the visit today. The patient agreed to participate. History of Present Illness Reason for Consultation: KELLY with SDH Requesting Physician: Dr. Reardon Attending Physician: Milagro Reardon MD History of Present Illness 79 year old female fully anticoagulated via warfarin due to hx of AFIB presented due to concern of bruising on extremities and black stool was found to have supratherapeutic INR level and has undergone treatment unfortunately complained of ongoing headache and was found to have small areas of SDH on CT brain without contrast. NSG at [facility] has been made aware and planned for follow up imaging to monitor for woprsening hemorrhage while continue to treat at [facility] [place]. I have perfo rmed televideo consultation. She is alert & oriented; able to answer all questions appropriately, name objects on televideo monitor, repeat phrases and perform complex/embedded commands without deficit. Neurological exam is non lateralizing/nonfocal in terms of motor strength and coordination. Reports headache has improved 5/10 at this time and she feels as if it vastly imporved following her bowel movement but unfortunately she reports her bowels remain black. Allergies Allergy/AdvReac Type Severity Reaction Status Date / Time adhesive Allergy Unknown WELTS AND Verified 05/20/24 15:03 PULLS SKIN bee venom protein (honey bee) Allergy Unknown SWELLING Verified 05/20/24 15:03 Iodinated Contrast Media Allergy Unknown HIVES Verified 05/20/24 15:03 perflutren AdvReac Severe Back pain Verified 01/31/23 17:42 propylene glycol AdvReac Severe Back pain Verified 01/31/23 17:42 Home Medications Medication Instructions Recorded Confirmed Type albuterol sulfate 90 mcg/actuation 2 puff inhalation Q6H PRN 11/18/18 05/20/24 History aerosol inhaler (Ventolin HFA) Shortness Of Breath amoxicillin 500 mg capsule 2,000 mg PO UD PRN prior to dental 11/18/18 05/20/24 History procedures aspirin 81 mg tablet,delayed 81 mg PO QAM 11/18/18 05/20/24 History release calcium carbonate (Calcium 500) 1,250 mg PO QAM 11/18/18 05/20/24 History cholecalciferol (vitamin D3) 50 2,000 unit PO QAM 11/18/18 05/20/24 History mcg (2,000 unit) tablet (Vitamin D3) furosemide 20 mg tablet 20 mg PO 5XWK 11/18/18 05/20/24 History levothyroxine 25 mcg tablet 25 mcg PO QAM 11/18/18 05/20/24 History pantoprazole 40 mg tablet,delayed 40 mg PO QAM 11/18/18 05/20/24 History release pyridoxine (vitamin B6) 100 mg 100 mg PO QAM 11/18/18 05/20/24 History tablet (Vitamin B-6) sacubitril 24 mg-valsartan 26 mg 1 tab PO BID 11/18/18 05/20/24 History tablet (Entresto) rosuvastatin 10 mg tablet 10 mg PO DAILY 12/21/23 05/20/24 History warfarin 5 mg tablet 2.5 mg PO 4XWK 12/21/23 05/20/24 History metoprolol succinate 25 mg 25 mg PO QAM #30 tabs 12/25/23 05/20/24 Rx tablet,extended release 24 hr amiodarone 200 mg tablet 100 mg PO DAILY 05/20/24 05/20/24 History Patient History Medical History Pacemaker Breast cancer Restless leg syndrome Left bundle branch block Nonischemic cardiomyopathy Distal radius fracture, right Nausea and vomiting after administration of anesthetic agent Osteoarthritis Cancer of right breast 2007--sx, chemo/radiation Atrial fibrillation ICD (implantable cardioverter-defibrillator) in place 08/2017 @ [facility] meditronic Surgical History History of bilateral tubal ligation History of colonoscopy History of esophagogastroduodenoscopy (EGD) History of total mastectomy of right breast History of right breast biopsy malignant History of tooth extraction History of cardiac cath x3, no stents--last 2015? @ [facility] [place] with Dr. Gonsalez Family History Other No family history of adverse response to anesthesia Social History Smoking Status: Never smoker Second Hand Exposure: Yes ( smoked); Do You Dip or Chew Tobacco: No; Hx Alcohol Use: No Hx Substance Use: No Preferred Language: Slovak Communication Ability: Effective Commercial Title Examiner Required: No Beliefs That Will Affect Care: None Current Living Situation: Spouse Feels Safe at Home: Yes Safety Concerns: Feels Safe At This Time Assistive Devices: Glasses and Hearing Aid - Bilateral Physical Exam Neurological Examination: Mental Status: Awake and alert. Oriented to person, place, and time. Fluency naming repetition and comprehension appear grossly intact. Affect remains appropriate. CN testing: I: Denies changes in ability to smell II:Reports no changes in visual acuity III/IV/: No evidence of gaze preference, hippus, nystagmus or roving eye movements V: Facial sensation reportedly grossly intact to light touch bilaterally VII: Facial movements appear without evidence of asymmetry VIII: Hearing appears grossly intact to loud voice bilaterally IX/X: Palate appears to elevate symmetrically XI: Shoulder shrug appears symmetric/ grossly intact bilaterally XII: Tongue protrudes midline without evidence of biting Motor exam: Strength appears grossly intact/symmetric in all extremities Sensory: Sensation is reportedly grossly intact throughout Coordination: Finger to nose and heel to ryder were intact. No apparent evidence of dysmetria or dysdiadochokinesia Reflexes: Deferred Gait: Deferred Results & Data Vital Signs (Past 12 Hours) Vital Signs Temp Pulse Pulse Resp BP BP Pulse Ox 05/22/24 15:38 36.9 C 83 20 137/80 91 05/22/24 14:37 77 05/22/24 14:00 72 05/22/24 12:32 36.5 C 73 17 158/73 H 98 05/22/24 11:55 36.7 C 72 23 137/54 L 94 05/22/24 11:45 76 20 126/56 L 94 05/22/24 11:35 77 20 136/68 98 05/22/24 11:28 36 C L 84 18 132/65 97 05/22/24 07: 37.2 C 76 19 122/70 97 O2 Del Method O2 Flow Rate 05/22/24 15:38 Room Air 05/22/24 14:37 05/22/24 14:00 05/22/24 12:32 Nasal Cannula 2 05/22/24 11:55 Nasal Cannula 2 05/22/24 11:45 Oxymask 3 05/22/24 11:35 Oxymask 6 05/22/24 11:28 Oxymask 8 05/22/24 07:24 Nasal Cannula 2.0 Laboratory Results Abnormal lab results 05/21/24 05/22/24 Range/Units 18:45 06:22 RBC 2.63 L (4.20-5.40) M/uL Hgb 7.8 L (12.0-16.0) g/dl Hct 23.9 L (37.0-47.0) % RDW Std Deviation 61.4 H (36.4-46.3) fL RDW Coeff of Ivanna 19.3 H (11.5-14.5) % Plt Count 112 L (130-400) K/uL MPV 9.0 L (9.4-12.4) fL Lymph # (Auto) 1.02 L (1.20-3.40) K/uL PT 13.7 H (9.0-12.0) Seconds INR 1.3 H (0.9-1.1) Potassium 3.4 L (3.5-5.1) mmol/L Glucose 109 H (70-99(Fasting)) mg/dl Calcium 7.8 L (8.6-10.3) mg/dl Iron 31 L (35-150) mcg/dl Transferrin % Sat 12 L (15-50) % Total Protein 5.1 L (6.0-8.3) gm/dl Albumin 3.0 L (3.4-5.0) gm/dl Globulin 2.1 L (2.5-4.0) gm/dl Stool Occult Bld Scrn Positive A (Negative) Diagnostic Findings Head CT 05/22/24 12:48 CT OF THE HEAD WITHOUT CONTRAST CLINICAL HISTORY: persistent KELLY, Hx of supraINR, r/o bleed COMPARISON STUDY: Head CT December 21, 2023. CT DOSE: 547.75 mGy.cm TECHNIQUE: Helical axial images of the head were obtained without IV contrast. Automated exposure control was utilized for the study. A dose lowering technique was utilized adhering to the principles of ALARA. FINDINGS: There is trace acute subdural hemorrhage along the anterior and posterior aspects of the falx. There may also be trace acute subdural hemorrhage overlying the bilateral temporal lobes. There is no mass effect. Ventricular system is unremarkable. Basal cisterns are patent. There are no findings to suggest acute dural sinus thrombosis or acute territorial infarct. There are no calvarial fractures. IMPRESSION: 1. Trace acute subdural hemorrhage along anterior and posterior aspects of the falx. Possible trace acute subdural hemorrhage overlying the bilateral temporal lobes. No mass effect. A follow-up head CT in 24 hours is recommended. This finding will be called/faxed to the ordering provider at time of dictation. 2. No calvarial fractures. ACT 112: Negative or not required by law. Electronically signed by: Golden Larsen M.D. 05/22/2024 1:35 PM Medications Administered Home Medications Medication Instructions Recorded Confirmed Last Taken albuterol sulfate 90 mcg/actuation 2 puff inhalation Q6H PRN 11/18/18 05/20/24 05/05/18 aerosol inhaler (Ventolin HFA) Shortness Of Breath amoxicillin 500 mg capsule 2,000 mg PO UD PRN prior to dental 11/18/18 05/20/24 11/16/18 procedures aspirin 81 mg tablet,delayed 81 mg PO QAM 11/18/18 05/20/24 12/21/23 release calcium carbonate (Calcium 500) 1,250 mg PO QAM 11/18/18 05/20/24 12/20/23 cholecalciferol (vitamin D3) 50 2,000 unit PO QAM 11/18/18 05/20/24 12/20/23 mcg (2,000 unit) tablet (Vitamin D3) furosemide 20 mg tablet 20 mg PO 5XWK 11/18/18 05/20/24 12/18/23 levothyroxine 25 mcg tablet 25 mcg PO QAM 11/18/18 05/20/24 12/21/23 pantoprazole 40 mg tablet,delayed 40 mg PO QAM 11/18/18 05/20/24 12/21/23 release pyridoxine (vitamin B6) 100 mg 100 mg PO QAM 11/18/18 05/20/24 12/20/23 tablet (Vitamin B-6) sacubitril 24 mg-valsartan 26 mg 1 tab PO BID 11/18/18 05/20/24 12/21/23 tablet (Entresto) rosuvastatin 10 mg tablet 10 mg PO DAILY 12/21/23 05/20/24 12/21/23 warfarin 5 mg tablet 2.5 mg PO 4XWK 12/21/23 05/20/24 12/20/23 metoprolol succinate 25 mg 25 mg PO QAM #30 tabs 12/25/23 05/20/24 Unknown tablet,extended release 24 hr amiodarone 200 mg tablet 100 mg PO DAILY 05/20/24 05/20/24 Unknown Active Medications Generic Name Dose Route Start Last Admin Trade Name Carlitosq PRN Reason Stop Dose Admin Acetaminophen 650 mg 05/21/24 04:03 05/22/24 15:43 Acetaminophen 325 Mg Tab PO 06/20/24 04:02 650 mg QID PRN Administration pain/fever Amiodarone HCl 100 mg 05/21/24 09:00 05/22/24 08:35 Amiodarone 200 Mg Tab PO 06/20/24 08:59 100 mg DAILY ERIKA Administration Calcium Carbonate 500 mg 05/21/24 09:00 05/22/24 08:34 Calcium Carbonate 500 Mg Chewable Tab PO 06/20/24 08:59 500 mg QAM ERIKA Administration Pantoprazole Sodium 40 mg/ 100 mls @ 20 mls/hr 05/20/24 22:30 05/22/24 10:05 Dextrose IV 06/19/24 22:29 8 mg/hr Q5H ERIKA 20 mls/hr Administration 8 MG/HR Levothyroxine Sodium 25 mcg 05/21/24 06:30 05/22/24 05:04 Levothyroxine Sodium 25 Mcg Tablet PO 06/20/24 06:29 25 mcg DAILYBB ERIKA Administration Metoprolol Succinate 25 mg 05/21/24 09:00 05/22/24 08:35 Metoprolol Succ 25mg Ext Rel Tab PO 06/20/24 08:59 25 mg QAM ERIKA Administration Pyridoxine HCl 100 mg 05/21/24 09:00 05/22/24 08:36 Pyridoxine Hcl 50 Mg Tab PO 06/20/24 08:59 100 mg QAM ERIKA Administration Rosuvastatin Calcium 10 mg 05/21/24 09:00 05/22/24 08:35 Rosuvastatin Calcium 10 Mg Tab PO 06/20/24 08:59 10 mg DAILY ERIKA Administration Vitamin D 50 mcg 05/21/24 09:00 05/22/24 08:36 Cholecalciferol 25 Mcg (1000 Units) Tab PO 06/20/24 08:59 50 mcg QAM ERIKA Administration
--- NOTE | 2024-05-22 19:17 | CT Scan Report ---
CT SCAN OF THE BRAIN WITHOUT IV CONTRAST CLINICAL HISTORY: Follow-up subdural hemorrhage. COMPARISON STUDY: CT of the brain performed earlier the same day 05/22/2024. TECHNIQUE: Unenhanced axial CT scan of the brain is performed from the vertex to the skull base. A do se lowering technique was utilized adhering to the principles of ALARA. CT DOSE: 547.75 mGy.cm FINDINGS: Brain parenchyma: Again seen is trace acute subdural hemorrhage along the anterior and posterior aspe ct of the midline falx. There is also likely trace subdural hemorrhage overlying the bilateral tempor al convexities and along the right frontal convexity. These measure at most of the 2 mm in thickness. There is no associated mass effect. There is age-related involutional change noting minimal microang iopathic disease. There is no parenchymal hematoma, midline shift, or evidence of acute territorial i schemia by CT criteria. Figueroa-white matter differentiation is preserved. Ventricles, sulci, cisterns: Prominent secondary to involutional change. Intracranial vasculature: There is atherosclerotic calcification of the cavernous carotid and vertebr al arteries. Calvarium: Unremarkable. Sinuses and mastoids: The visualized paranasal sinuses are clear. The mastoid air cells are well pneu matized. Orbits: The bony orbits are grossly intact. There are bilateral ocular lens implants. IMPRESSION: 1. Trace subdural hemorrhage along the midline falx is unchanged, as is presumed trace subdural hemor rhage along the bilateral temporal and right frontal convexity 2. There is no associated mass effect. 3. There is no parenchymal hematoma or midline shift.. ACT 112: Negative or not required by law. Electronically signed by: Satya Mott M.D. 05/22/2024 7:14 PM
[2024-05-22] MEDS: PANTOprazole 40 MG in SYRINGE 0 ML IV SCH (20:35)
[2024-05-23 06:55] LABS: Basophils # (auto) 0.02 K/uL (0.00-0.20); Basophils % (auto) 0.4 %; Hematocrit (blood only) 26.2 % (37.0-47.0); Hemoglobin 8.1 g/dl (12.0-16.0); Immature Granulocytes # (auto) 0.03 K/uL (0.01-0.20); Immature Granulocytes % (auto) 0.6 %; Lymphocytes # (auto) 0.81 K/uL (1.20-3.40); Lymphocytes % (auto) 16.2 %; Mean Corpuscular Hemoglobin 29.5 pg (25.0-34.0); Mean Corpuscular Hgb Conc 30.9 g/dL (32.0-36.0); Mean Corpuscular Volume 95.3 fL (80.0-100.0); Mean Platelet Volume 9.7 fL (9.4-12.4); Monocytes # (auto) 0.44 K/uL (0.11-0.59); Monocytes % (auto) 8.8 %; Neutrophils # (auto) 3.59 K/uL (1.40-6.50); Nucleated RBC # (auto) 0.04 K/uL (0.00-0.12); Nucleated RBC % (auto) 0.8 %; Platelet Count 127 K/uL (130-400); RDW Coefficient of Variation 19.9 % (11.5-14.5); RDW Standard Deviation 63.3 fL (36.4-46.3); Red Blood Count 2.75 M/uL (4.20-5.40); White Blood Count 4.99 K/ul (4.8-10.8)
[2024-05-23 07:16] LABS: Albumin Globulin Ratio 1.4 (0.9-2); BUN Creatinine Ratio 12.5 (10-20); Bilirubin,Total 0.9 mg/dl (0.2-1.0); Calcium 8.1 mg/dl (8.6-10.3); Creatinine Clr Calc Pharmacy 58.9 ml/min; Globulin 2.2 gm/dl (2.5-4.0); Magnesium 1.9 mg/dl (1.7-2.4); Potassium 3.6 mmol/L (3.5-5.1); Total Protein 5.2 gm/dl (6.0-8.3)
--- NOTE | 2024-05-23 07:20 | Gastroenterology Progress Note ---
Date of Service May 23, 2024 Assessment & Plan (1) GI bleed: Plan: We ablated 2 vascular ectasia of stomach. Likely to restart Coumadin this evening but will defer to medicine. If rebleeds then CTA or nuclear med bleeding scan. May benefit from OP SB Video Capsule Endoscopy. Admission and Anticipated Discharge Date Admission Date: May 20, 2024 Subjective Patient states she is doing OK Review of Systems Gastrointestinal: Denies abdominal pain, N/V. Last BM yesterday still had some melena. Physical Exam Constitutional: WD WN WF NAD Afebrile. BP soft P nl Respiratory: Lungs: Clear anteriorly Cardiovascular: Heart: RRR Gastrointestinal (Abdomen): NL BS, soft, nontender Results & Data Results & Data Vital Signs (Past 12 Hours) Vital Signs Temp Pulse Pulse Resp BP Pulse Ox Pulse Ox 05/23/24 03:28 36.6 C 81 18 94/58 L 98 05/22/24 23:34 36.6 C 69 16 127/50 L 99 05/22/24 22:48 74 05/22/24 20:50 94 O2 Del Method O2 Del Method O2 Flow Rate 05/23/24 03:28 Nasal Cannula 2 05/22/24 23:34 Room Air 05/22/24 22:48 05/22/24 20:50 Room Air Laboratory Results Hgb stable at 8.1 PG Care Time/CCT Total # of Minutes Spent Total Time Spent with Patient: Total time spent is greater than 50% in coordination of care (as documented) at patient's floor/unit and/or counseling patient: Coding Level of Care Code 44025 SUB INP/OBS CARE 1/25MIN Diagnoses Gastrointestinal hemorrhage with melena K92.1 GI bleed type/associated pathology: melena (1) GI bleed GI bleed type/associated pathology: melena Qualified Code(s): K92.1 - Melena
[2024-05-23 07:27] LABS: INR 2.3 (0.9-1.1); Prothrombin Time 22.8 Seconds (9.0-12.0)
--- NOTE | 2024-05-23 14:03 | Hospitalist Progress Note ---
Date of Service May 23, 2024 Assessment & Plan (1) Implantable cardioverter-defibrillator generator end of life: (2) Chronic systolic heart failure: (3) GERD (gastroesophageal reflux disease): (4) Hypothyroidism: (5) Atrial fibrillation: (6) ICD (implantable cardioverter-defibrillator) in place: (7) Nonischemic cardiomyopathy: (8) GI bleed: (9) Supratherapeutic INR: Plan Pt is an 79-year-old female with a past medical history of nonischemic cardiomyopathy, chronic systolic CHF, HTN, mitral valve disorder, PM w/ defibrillator, atrial thrombus, CAD, AF, Yi's esophagus, GERD, vitamin D deficiency, breast cancer s/p right mastectomy presenting with concern for bruising on her skin and tongue and melanocytic stools. Acute blood loss anemia Suspected UGI bleed Supratherapeutic INR Melanocytic stools Patient presenting with concern for bruising on skin, tongue and melanocytic stools Hemoglobin of 6.5 noted on arrival in the ED, was previously noted to be 12.3 INR supratherapeutic at greater than 9 Patient was given 1 dose of vitamin K 10 mg in the emergency room CT abd/pelvis noting only nonspecific enteritis FOBT positive AM anemia panel noting iron deficiency anemia, s/p IV Venofer Status post transfusion of 3 units of packed red blood cells Holding home Coumadin Continue to monitor H&H and transfuse as needed GI consulted, appreciate recs. Noted the following: - status post EGD on 05/22/2024 "-Noted two non-bleeding angioectasias in the stomach. Treated with argon plasma coagulation (APC). -Can advance diet -Can restart anticoagulation if needed in 24 hrs but would try and keep INR in low therapeutic range. It's possible she has more vascular ectasia in SB so if rebleeds would do either CTA or bleeding scan and consider SB Video Capsule Endoscopy." PPI drip transitioned to IV pantoprazole pushes Continue to monitor Headache Subdural hemorrhages Patient with persistent headache GCS score of [address] obtained on 05/22/2024 which noted trace subdural hemorrhages Case discussed with neurology who originally recommended transfer for neurosurgical care Case discussed via transfer center with neurosurgeon at [facility] Dr. Kahn who advised that patient likely had brain bleed when she presented, and given reversal and low INR for the past 2 days he does not anticipate any progression or worsening which would require transfer. Advised repeat head CT 6 hours later, and if worsening at that time he can be contacted via [place] text for possible transfer. Repeat head CT ordered Neurology consulted appreciate recs Continue to monitor patient's neurological and mental status, repeat imaging for any acute change CHF Atrial Fibrillation Nonischemic cardiomyopathy s/p pacemaker placement CAD Hx of Atrial thrombus Patient follows with cardiology, recently had amiodarone dose decreased on May 12, 2024 Continue amiodarone and metoprolol, hold aspirin/warfarin Had pacer defibrillator exchange done in December 2023 Holding home Entresto while monitoring blood pressure Holding home Lasix at this time while monitoring blood pressures as well Continue home statin Cardiology consulted for further recs for anticoagulation in the setting of bleeding above and subdural hemorrhages. Originally signed off but will recon sult in the a.m. given new findings of subdural hemorrhages Enteritis Noted on CT abd/pelvis Stool Cx and c diff studies negative Asymptomatic otherwise, will continue to monitor Hx GERD Continue Protonix Diet: clears, advance as tolerated DVT prophylaxis: Warfarinon hold, SCDs, avoid AC with anemia Dispo: PT/OT for further recs once medically stable Admission and Anticipated Discharge Date Admission Date: May 20, 2024 Physical Exam Physical Exam: General: Alert, oriented. No acute distress Skin: bruising on skin especially on left antecubital fossa area Psych: Appropriate mood and affect Neuro: No gross deficits while in bed HEENT: NC/AT, tongue with blue-purple discoloration CV: RRR Resp: no increased effort of breathing Abdomen: Soft, nontender Extremities: moving lower extremities bilaterally. Results & Data Results & Data Vital Signs (Past 12 Hours) Vital Signs Temp Pulse Resp BP Pulse Ox O2 Del Method O2 Flow Rate 05/23/24 11:53 36.8 C 73 18 118/63 97 Room Air 05/23/24 07:22 37.0 C 68 18 133/62 97 Nasal Cannula 2.0 05/23/24 03:28 36.6 C 81 18 94/58 L 98 Nasal Cannula 2 (3) GERD (gastroesophageal reflux disease) Esophagitis presence: without esophagitis Qualified Code(s): K21.9 - Gastro- esophageal reflux disease without esophagitis (4) Hypothyroidism Hypothyroidism type: unspecified Qualified Code(s): E03.9 - Hypothyroidism, unspecified (8) GI bleed GI bleed type/associated pathology: melena Qualified Code(s): K92.1 - Melena
--- NOTE | 2024-05-23 15:15 | Cardiology Progress Note ---
Date of Service May 23, 2024 Assessment & Plan (1) Symptomatic anemia: (2) GI bleed: (3) Elevated INR: (4) Chronic systolic heart failure: (5) Paroxysmal atrial fibrillation: Plan Patient admitted with symptomatic anemia, Hbg of 6.4 g/dl Received 3 units of PRBCs. Hgb increased to 8.1 g/dl . s/p EGD with two vascular ectasias of stomach. Small bowel capsule endoscopy to be considered as outpatient. Due to headache, patient had CT head on am of 05/22/24 with findings of trace acute subdural hemorrhage along the anterior and posterior aspects of the falx. There may also be trace acute subdural hemorrhage overlying the bilateral temporal lobes. There is no mass effect. Repeat CT head evening of 05/22 was unchanged. On chronic Coumadin for anticoagulation due to history of PAF and thrombus on in the right atrium likely connected to the pacer lead in Sep 2022, resolved on repeat imaging. Has been on amiodarone chronically at dose of 200 mg daily , with dose reduced to 100 mg on 05/12/24. Coumadin now on hold. INR > 9.5 with hematoma at left arm phlebotomy site, tongue hematoma, spontaneous subdural hematoma. Received Vit K. INR as of 05/21 was 1.2 but has trended up to 1.3 and 2.3 without anticoaguation. Continue to hold Coumadin. Given increase in INR, proceed with vitamin K 5 mg IV x 1 now (05/23/24 at 3:21 pm) Pt assessed in Neurology consultation on 05/22 and recommend consideration of neurosurgery consultation , however, Dr Reardon reached out to neurosurgery by phone on 05/22/24 and ongoing observation without transfer recommended as pt was clinically stable with stable imaging. With regards to anticoagulation recommend the following: -In short-term, avoid anticoagulation and antiplatelet therapy. Repeat vitamin K dose ordered as noted above. Will repeat INR tomorrow. -Looking head, future considerations include transitioning to low-dose Eliquis 2.5 mg twice daily, but would recommend getting neurology and neurosurgery input with regards to timing of resuming it for up after a 4-week interval off of an ticoagulation/antiplatelet therapy with some kind of plan for surveillance imaging in the interim. Case discussed by phone with Dr Reardon who is going to follow up on the above. Admission and Anticipated Discharge Date Admission Date: May 20, 2024 Subjective Patient seen in cardiology follow up. at the bedside. Pt feeling well, notes minimal persistent headache. Telemetry reveals SR in the 70s with ventricular pacing. Review of Systems Review of Systems: All systems reviewed & are unremarkable except as noted in HPI & below Physical Exam Constitutional: no acute distress Respiratory: normal respiratory effort, lungs clear to auscultation Cardiovascular: RRR, no murmur, no edema Chest (Breasts): Additional Comments: left pacemaker pocket, clean, dry , and intact, no ecchymosis Skin: ecchymosis of left antecubital fossa. Neurologic: PERRL, EOMI, accommodation nl, no face palsy, no dysarthria Results & Data Vital Signs (Past 12 Hours) Vital Signs Temp Pulse Resp BP Pulse Ox O2 Del Method O2 Flow Rate 05/23/24 11:53 36.8 C 73 18 118/63 97 Room Air 05/23/24 07:22 37.0 C 68 18 133/62 97 Nasal Cannula 2.0 05/23/24 03:28 36.6 C 81 18 94/58 L 98 Nasal Cannula 2 Laboratory Results Cardiac Enzymes 05/23/24 Range/Units 06:26 AST 28 (13-39) U/L Coagulation 05/23/24 Range/Units 06:26 PT 22.8 H (9.0-12.0) Seconds CBC 05/23/24 Range/Units 06:26 WBC 4.99 (4.8-10.8) K/ul RBC 2.75 L (4.20-5.40) M/uL Hgb 8.1 L (12.0-16.0) g/dl Hct 26.2 L (37.0-47.0) % Plt Count 127 L (130-400) K/uL Neut # (Auto) 3.59 (1.40-6.50) K/uL Lymph # (Auto) 0.81 L (1.20-3.40) K/uL [place] # (Auto) 0.44 (0.11-0.59) K/uL Eos # (Auto) 0.10 (0.00-0.50) K/uL Baso # (Auto) 0.02 (0.00-0.20) K/uL Comprehensive Metabolic Panel 05/23/24 Range/Units 06:26 Sodium 140 (136-145) mmol/L Potassium 3.6 (3.5-5.1) mmol/L Chloride 106 (98-107) mmol/L Carbon Dioxide 30 (21-32) mmol/L BUN 9 (6-23) mg/dl Creatinine 0.72 (0.6-1.2) mg/dl Glucose 100 H (70-99(Fasting)) mg/dl Calcium 8.1 L (8.6-10.3) mg/dl AST 28 (13-39) U/L ALT 11 (7-52) U/L Alkaline Phosphatase 37 (34-104) U/L Total Protein 5.2 L (6.0-8.3) gm/dl Albumin 3.0 L (3.4-5.0) gm/dl Intake and Output 05/23/24 05/23/24 05/23/24 06:59 14:59 22:59 Intake Total 780 / 780 Output Total 0 / 325 400 / 400 Balance 0 / 725 380 / 380 Intake: Oral 780 / 780 Output: Urine 0 / 325 400 / 400 Diagnostic Findings Echocardiogram performed today and interpreted independently: Septal motion is consistent with right ventricular pacemaker activation, left ventricular wall motion is otherwise normal, LVEF normal in the range of 55 to 60% Grade II diastolic dysfunction Mild mitral regurgitation Mild tricuspid regurgitation Mild pulmonary hypertension is present with pulmonary artery systolic pressure 42 mmHg A pacemaker lead is visualized in the right atrium. A pacemaker lead is visualized in the right ventricle. There is no mobile echodensity to suggest thrombus. (2) GI bleed GI bleed type/associated pathology: melena Qualified Code(s): K92.1 - Melena
[2024-05-23] MEDS: PHYTONADIONE 5 MG in DEXTROSE 5% 50 ML IV ONE (15:48)
[2024-05-23 16:35] LABS: Partial Thromboplastin Ratio 1.5; Partial Thromboplastin Time 41 Seconds (21-31)
--- NOTE | 2024-05-23 16:43 | Discharge Summary ---
Discharge Summary Date of Service May 23, 2024 Principal Dx & Hospital Course #1 = Principal Diagnosis (1) Implantable cardioverter-defibrillator generator end of life: (2) Chronic systolic heart failure: (3) GERD (gastroesophageal reflux disease): (4) Hypothyroidism: (5) Atrial fibrillation: (6) ICD (implantable cardioverter-defibrillator) in place: (7) Nonischemic cardiomyopathy: (8) GI bleed: (9) Supratherapeutic INR: Plan Pt is an 79-year-old female with a past medical history of nonischemic cardiomyopathy, chronic systolic CHF, HTN, mitral valve disorder, PM w/ defibrillator, atrial thrombus, CAD, AF, Yi's esophagus, GERD, vitamin D deficiency, breast cancer s/p right mastectomy presenting with concern for bruising on her skin and tongue and melanocytic stools. Acute blood loss anemia Suspected UGI bleed Supratherapeutic INR Melanocytic stools Patient presenting with concern for bruising on skin, tongue and melanocytic stools Hemoglobin of 6.5 noted on arrival in the ED, was previously noted to be 12.3 INR supratherapeutic at greater than 9 Patient was given 1 dose of vitamin K 10 mg in the emergency room CT abd/pelvis noting only nonspecific enteritis FOBT positive AM anemia panel noting iron deficiency anemia, s/p IV Venofer Status post transfusion of 3 units of packed red blood cells Holding home Coumadin Continue to monitor H&H and transfuse as needed GI consulted, appreciate recs. Noted the following: - status post EGD on 05/22/2024 "-Noted two non-bleeding angioectasias in the stomach. Treated with argon plasma coagulation (APC). -Can advance diet... It's possible she has more vascular ectasia in SB so if rebleeds would do either CTA or bleeding scan and consider SB Video Capsule Endoscopy." PPI drip transitioned to IV pantoprazole pushes Continue to monitor H/H has been stable at ~8 05/23- patient with increasing INR to 2.3 even with warfarin being held, per cardiology can give an additional vitamin K 5 mg dose. Headache Spontaneous Intracranial Bleed Subdural hemorrhages Patient with persistent headache GCS score of [address] obtained on 05/22/2024 which noted trace subdural hemorrhages Case discussed with neurology who originally recommended transfer for neurosurgical care Case discussed via transfer center with neurosurgeon at [facility] Dr. Kahn on 05/22/2024 who advised that patient likely had brain bleed when she presented, and given reversal and low INR for the past 2 days he does not anticipate any progression or worsening which would require transfer. Advised repeat head CT 6 hours later, and if worsening at that time he can be contacted via [place] text for possible transfer. Repeat head CT ordered and was stable Neurology consulted appreciate recs Continue to monitor patient's neurological and mental status, repeat imaging for any acute change q4h mental status checks Case discussed with Dr. Blair Kahn once more on 05/23/2024, agreeable to transfer to [place] at this time given patient's unexplained elevation of INR in setting of spontaneous intracranial bleed and without neurosurgical services at this facility. Family agreeable to transfer. CHF Atrial Fibrillation Nonischemic cardiomyopathy s/p pacemaker placement CAD Hx of Atrial thrombus Patient follows with cardiology, recently had amiodarone dose decreased on May 12, 2024 Continue amiodarone and metoprolol, hold aspirin/warfarin Had pacer defibrillator exchange done in December 2023 Holding home Entresto while monitoring blood pressure Holding home Lasix at this time while monitoring blood pressures as well Continue home statin Cardiology consulted for further recs for anticoagulation in the setting of bleeding above and subdural hemorrhages. Per Cardiology, Dr. Honeycutt on 05/23/2024 noted the following: "Continue to hold Coumadin. Given increase in INR, proceed with vitamin K 5 mg IV x 1 now (05/23/24 at 3:21 pm)...With regards to anticoagulation recommend the following: -In short-term, avoid anticoagulation and antiplatelet therapy. Repeat vitamin K dose ordered as noted above. Will repeat INR tomorrow. -Looking head, future considerations include transitioning to low-dose Eliquis 2.5 mg twice daily, but would recommend getting neurology and neurosurgery input with regards to timing of resuming it for up after a 4-week interval off of anticoagulation/antiplatelet therapy with some kind of plan for surveillance imaging in the interim." patient to be transferred to [facility] on 05/23/2024 for further neurosurgical monitoring and intervention as needed. Enteritis Noted on CT abd/pelvis Stool Cx and c diff studies negative Asymptomatic otherwise, continue to monitor Hx GERD Continue Protonix Notes For Next Care Provider patient to be transferred to [facility] on 05/23/2024 for further neurosurgical monitoring and intervention as needed. Medication Changes From Visit Pt being transferred to acute care hospital Admission HPI Per Admitting Provider The patient is an 79-year-old female with a past medical history of nonischemic cardiomyopathy, chronic systolic CHF, HTN, mitral valve disorder, PM w/ defibrillator, atrial thrombus, CAD, AF, Yi's esophagus, GERD, vitamin D deficiency, breast cancer s/p right mastectomy who presents to the ED today with complaints of scattered bruising. Patient reports seeing her her ton container filler recently, 05/12/2024, at this time her amiodarone was decreased from 200 mg daily to 100 mg daily. Her Coumadin dosing was not changed. There was close outpatient monitoring. Patient had an INR level drawn at the INR clinic on 05/17/2024 at this time, the result was over 9, the patient was directed to hold her Coumadin for the next 3 days. Patient reports at this time, there was no bleeding or concerns. Patient also had blood work on 05/12 that showed a normal hemoglobin. Today, the patient comes in with complaints of scattered bruising everywhere. She reports her tongue is swollen and black. She also reports 2 episodes of black stool 5 days ago. She has not had a bowel movement since then. Denies any nausea/vomiting/diarrhea. She also reported attempting to have a bowel movement this a.m. and having some dizziness while she was bearing down and was concerned she may pass out. She denies any fever/chills. She denies any chest pain. On arrival to the ED, labs remarkable for hemoglobin 6.5, hematocrit 20.9, PT over 90 seconds, INR over 9.5, PTT 113, troponin 18.1 The patient was ordered 2 units of blood and a one-time dose of vitamin K 10 mg She will be admitted for further management of anemia and presumed GI bleed Admission Exam Per Admitting Provider Constitutional: WD/WN, vitals as above Eyes: PERRL, conjunctivae normal, anicteric sclerae (Tongue is black/swollen from bleeding) ENMT: external ear and nose normal, oropharynx normal Neck: trachea midline, no thyromegaly Respiratory: normal respiratory effort, lungs clear to auscultation + audible wheezes (Expiratory) Cardiovascular: RRR, no murmur, no edema Chest (Breasts): normal inspection/palpation of breasts Gastrointestinal (Abdomen): normal bowel sounds, soft, nontender, no hepatosplenomegaly Musculoskeletal: no cyanosis or clubbing, extremities motor strength 5/5 Skin: no rashes, warm and dry (Scattered bruising, mostly on left upper extremity and legs) Neurologic: PERRL, EOMI, accommodation nl, no face palsy, no dysarthria Psychiatric: A+Ox3, euthymic affect Lymphatic: no cervical or axillary lymphadenopathy Discharge Exam General: Alert, oriented. No acute distress Skin: bruising on skin especially on left antecubital fossa area Psych: Appropriate mood and affect Neuro: No gross deficits while in bed HEENT: NC/AT, tongue with blue-purple discoloration CV: RRR Resp: no increased effort of breathing Abdomen: Soft, nontender Extremities: moving lower extremities bilaterally. Updated Medication List Medication Instructions Recorded Confirmed Type albuterol sulfate 90 mcg/actuation 2 puff inhalation Q6H PRN 11/18/18 05/20/24 History aerosol inhaler (Ventolin HFA) Shortness Of Breath amoxicillin 500 mg capsule 2,000 mg PO UD PRN prior to dental 11/18/18 05/20/24 History procedures aspirin 81 mg tablet,delayed 81 mg PO QAM 11/18/18 05/20/24 History release calcium carbonate (Calcium 500) 1,250 mg PO QAM 11/18/18 05/20/24 History cholecalciferol (vitamin D3) 50 2,000 unit PO QAM 11/18/18 05/20/24 History mcg (2,000 unit) tablet (Vitamin D3) furosemide 20 mg tablet 20 mg PO 5XWK 11/18/18 05/20/24 History levothyroxine 25 mcg tablet 25 mcg PO QAM 11/18/18 05/20/24 History pantoprazole 40 mg tablet,delayed 40 mg PO QAM 11/18/18 05/20/24 History release pyridoxine (vitamin B6) 100 mg 100 mg PO QAM 11/18/18 05/20/24 History tablet (Vitamin B-6) sacubitril 24 mg-valsartan 26 mg 1 tab PO BID 11/18/18 05/20/24 History tablet (Entresto) rosuvastatin 10 mg tablet 10 mg PO DAILY 12/21/23 05/20/24 History warfarin 5 mg tablet 2.5 mg PO 4XWK 12/21/23 05/20/24 History metoprolol succinate 25 mg 25 mg PO QAM #30 tabs 12/25/23 05/20/24 Rx tablet,extended release 24 hr amiodarone 200 mg tablet 100 mg PO DAILY 05/20/24 05/20/24 History Additional Medication Comments Current Inpatient Medications Acetaminophen (Acetaminophen 325 Mg Tab) 650 mg PO QID PRN PRN Reason: pain/fever Stop: 06/20/24 04:02 Last Admin: 05/22/24 15:43 Dose: 650 mg Amiodarone HCl (Amiodarone 200 Mg Tab) 100 mg PO DAILY ERIKA Stop: 06/20/24 08:59 Last Admin: 05/23/24 08:51 Dose: 100 mg Calcium Carbonate (Calcium Carbonate 500 Mg Chewable Tab) 500 mg PO QAM ERIKA Stop: 06/20/24 08:59 Last Admin: 05/23/24 08:50 Dose: 500 mg Pantoprazole Sodium 40 mg/ (Syringe) 10 mls @ 5 mls/min IV BID ERIKA Stop: 06/21/24 20:59 Last Admin: 05/23/24 08:51 Dose: 5 mls/min Levothyroxine Sodium (Levothyroxine Sodium 25 Mcg Tablet) 25 mcg PO DAILYBB ERIKA Stop: 06/20/24 06:29 Last Admin: 05/23/24 06:07 Dose: 25 mcg Metoprolol Succinate (Metoprolol Succ 25mg Ext Rel Tab) 25 mg PO QAM ERIKA Stop: 06/20/24 08:59 Last Admin: 05/23/24 08:50 Dose: 25 mg Pyridoxine HCl (Pyridoxine Hcl 50 Mg Tab) 100 mg PO QAM ERIKA Stop: 06/20/24 08:59 Last Admin: 05/23/24 08:51 Dose: 100 mg Rosuvastatin Calcium (Rosuvastatin Calcium 10 Mg Tab) 10 mg PO DAILY ERIKA Stop: 06/20/24 08:59 Last Admin: 05/23/24 08:51 Dose: 10 mg Vitamin D (Cholecalciferol 25 Mcg (1000 Units) Tab) 50 mcg PO QAM ERIKA Stop: 06/20/24 08:59 Last Admin: 05/23/24 08:51 Dose: 50 mcg Hospital Stay Data Consultations 05/20/24 14:56 ED Decision to Admit Stat 05/20/24 20:50 Consult Gastroenterology Routine 05/21/24 08:04 Consult Cardiology Routine 05/22/24 13:50 Consult Neurology Routine Procedures Performed Operation Date: 05/22/24 10:00 Actual Procedures p Esophagogastroduodenoscopy(Not Applicable) - Alexandre Lindo MD Diagnostic Imagining Performed 05/20/24 16:20 CT Abdomen and Pelvis [CT abd pelvis wo con] Stat 05/22/24 12:48 CT head/brain wo con Urgent 05/22/24 19:00 CT head/brain wo con Routine Abdomen/Pelvis CT 05/20/24 16:20 Exam(s): CT ABDOMEN + PELVIS Without Contrast EXAM: CT Abdomen and Pelvis Without Intravenous Contrast CLINICAL HISTORY: gi bleed. TECHNIQUE: Axial computed tomography images of the abdomen and pelvis without intravenous contrast. CTDI is 25.68 mGy and DLP is 1119.08 mGy-cm. Automated exposure control was utilized for the study. A dose lowering technique was utilized adhering to the principles of ALARA. COMPARISON: 01/31/2023. FINDINGS: Lung bases: Mild left basilar atelectasis. No mass. No consolidation. ABDOMEN: Liver: Unremarkable. Gallbladder and bile ducts: Unremarkable. No calcified stones. No ductal dilation. Pancreas: Unremarkable. No ductal dilation. Spleen: Unremarkable. No splenomegaly. Adrenals: Unremarkable. No mass. Kidneys and ureters: No obstructive uropathy. No obstructing renal or ureteral calculi. No hydronephrosis or hydroureter. Stomach and bowel: No obstruction or ileus. Slight asymmetric dilatation with mild surrounding infiltration in the mid small bowel the left abdomen. Mild left and sigmoid colon diverticulosis without evidence for diverticulitis. PELVIS: Appendix: No findings to suggest acute appendicitis. Bladder: Unremarkable. No stones. Reproductive: Unremarkable as visualized. ABDOMEN and PELVIS: Intraperitoneal space: No free air. No free fluid. Bones/joints: No acute fracture. Chronic mild compression fractures of T11, L1 and L2. Multilevel degenerative changes. Soft tissues: Unremarkable. Vasculature: Atherosclerotic vascular calcifications. No abdominal aortic aneurysm. Lymph nodes: Unremarkable. No enlarged lymph nodes. IMPRESSION: Slight asymmetric dilatation with mild surrounding infiltration in the mid small bowel the left abdomen, suggestive of a nonspecific enteritis Mild left and sigmoid colon diverticulosis without evidence for diverticulitis. Otherwise no change. Electronically signed by: Trace Ruvalcaba M.D. 05/21/24 02:[address] 05/22/24 12:48 CT OF THE HEAD WITHOUT CONTRAST CLINICAL HISTORY: persistent KELLY, Hx of supraINR, r/o bleed COMPARISON STUDY: Head CT December 21, 2023. CT DOSE: 547.75 mGy.cm TECHNIQUE: Helical axial images of the head were obtained without IV contrast. Automated exposure control was utilized for the study. A dose lowering technique was utilized adhering to the principles of ALARA. FINDINGS: There is trace acute subdural hemorrhage along the anterior and posterior aspects of the falx. There may also be trace acute subdural hemorrhage overlying the bilateral temporal lobes. There is no mass effect. Ventricular system is unremarkable. Basal cisterns are patent. There are no findings to sugg est acute dural sinus thrombosis or acute territorial infarct. There are no calvarial fractures. IMPRESSION: 1. Trace acute subdural hemorrhage along anterior and posterior aspects of the falx. Possible trace acute subdural hemorrhage overlying the bilateral temporal lobes. No mass effect. A follow-up head CT in 24 hours is recommended. This finding will be called/faxed to the ordering provider at time of dictation. 2. No calvarial fractures. ACT 112: Negative or not required by law. Electronically signed by: Golden Larsen M.D. 05/22/2024 1:[address] 05/22/24 19:00 CT SCAN OF THE BRAIN WITHOUT IV CONTRAST CLINICAL HISTORY: Follow-up subdural hemorrhage. COMPARISON STUDY: CT of the brain performed earlier the same day 05/22/2024. TECHNIQUE: Unenhanced axial CT scan of the brain is performed from the vertex to the skull base. A dose lowering technique was utilized adhering to the principles of ALARA. CT DOSE: 547.75 mGy.cm FINDINGS: Brain parenchyma: Again seen is trace acute subdural hemorrhage along the anterior and posterior aspect of the midline falx. There is also likely trace subdural hemorrhage overlying the bilateral temporal convexities and along the right frontal convexity. These measure at most of the 2 mm in thickness. There is no associated mass effect. There is age-related involutional change noting minimal microangiopathic disease. There is no parenchymal hematoma, midline shift, or evidence of acute territorial ischemia by CT criteria. Figueroa-white matter differentiation is preserved. Ventricles, sulci, cisterns: Prominent secondary to involutional change. Intracranial vasculature: There is atherosclerotic calcification of the cavernous carotid and vertebral arteries. Calvarium: Unremarkable. Sinuses and mastoids: The visualized paranasal sinuses are clear. The mastoid air cells are well pneumatized. Orbits: The bony orbits are grossly intact. There are bilateral ocular lens implants. IMPRESSION: 1. Trace subdural hemorrhage along the midline falx is unchanged, as is presumed trace subdural hemorrhage along the bilateral temporal and right frontal convexity 2. There is no associated mass effect. 3. There is no parenchymal hematoma or midline shift.. ACT 112: Negative or not required by law. Electronically signed by: Satya Mott M.D. 05/22/2024 7:14 PM Pending Results Patient Have Any Pending Studies at Discharge: No Discharge Instructions Given to Patient (Per Discharging Provider) Eduarda, You are admitted with concern for bleeding. You had a GI procedure to help with that. It was also noted that you or spontaneously bleeding in your brain. You remained stable however we are transferring you to [facility] or neurosurgical services are available to help you. Please continue holding your home warfarin and aspirin at this time. It was a pleasure taking care of you while you were here. Total Time Total Time Spent Total Time Spent (In Minutes): 75
[2024-05-23 19:31] VITALS: BP 137/58; PULSE 77; RESP 16; TEMP 98.5; O2SAT 95
== END 2024-05-23 20:30 | disposition short-term general hospital (02) | DRG 377 ==
LOC: ED 12:07 → EDINP 16:27 → SUATTDRO 16:27 → 2E 20:46

== ENCOUNTER 2024-07-03 13:03 | Inpatient (IN) ==
--- OUTSIDE RECORDS SUMMARY | 2024-07-03 13:09 | External Medical Summary | Summary of Care ---
Author Name Unknown Organization [facility] Address [address] [place] [address] Phone [phone] Care Team Providers Care Fleet Manager/Dispatch Name Role Phone Ruth Brandon MD Primary Care Provider + Reason for Visit * Reason Onset Date Comments Pacemaker Clinic 06/21/2024 Remote transmis elsie Encounter Details Date Type Department Care Team (Late st Contact Info) Description 06/21/2024 Telephone Cardiology, [facility] [address] [place] [address] [place], Pacer Clinic [facility] [address] [place] [address] Pacemaker Clinic (Remote transmission ) Allergies Active Allergy Reactions Criticality Noted Date Comments Adhesive Tape Other (Please comment) 01/24/2008 Welts, blisters Bee Stings 02/14/2003 Bee Venom Hives 10/17/2019 Iodine Hives 10/17/2019 Ivp Dye 01/10/1998 hives documented as of this encounter (statuses as of 06/21/2024) Medications Medication Sig Dispensed Refills Start Date End Date Status VITAMIN B-6 100 MG PO TABS Take 1 Tablet by mouth in the morning. Active CALCIUM 1250 MG PO TABS Take 1 Tablet by mouth in the morning. 1200mg. Active VITAMIN D 2000 UNITS PO CAPS Take 1,000 Units by mouth in the morning. Active acetaminophen (TYLENOL) 500 MG Tablet Take [...] DAY 200 Tablet 3 08/12/2023 4 Active Metoprolol Succinate ER 25 MG [...] the morning. 50 Tablet 3 05/12/2024 Active Pantoprazole Sodium 40 MG Oral Tablet Delayed Release (Protonix) Take 1 Tablet by mouth in the morning and 1 Tablet before bedtime. 60 Tablet 05/24/2024 4 Active traZODone HCl 50 MG Oral Tablet (Desyrel)Indications :Insomnia, unspecified type Take 1 Tablet by mouth at bedtime. 30 Tablet 3 05/30/2024 Active Apixaban 5 MG Oral Tablet (Eliquis) Take 1 Tablet by mouth in the morning and 1 Tablet before bedtime. 180 Tablet 3 06/14/2024 Active Rosuvastatin Calcium 10 MG Oral Tablet (Crestor)Indications :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) TAKE ONE TABLET BY MOUTH EVERY DAY IN THE MORNING 90 Tablet 3 06/16/2024 Active documented as of this encounter (statuses as of 06/21/2024) Active Problems Problem Noted Date Diagnosed Date SDH (subdural hematoma) 05/25/2024 PAF (paroxysmal atrial fibrillation) 05/24/2024 Chronic anticoagulation 05/24/2024 Acute blood loss anemia 05/24/2024 AVM (arteriovenous malformat ion) of stomach, acquired with hemorrhage 05/24/2024 Nonischemic cardiomyopathy 03/17/2024 Chronic atrial fibrillation 12/29/2023 Atherosclerosis of aorta 06/23/2023 Atherosclerosis of coronary artery of [place] heart without angina pectoris 06/23/2023 Atrial thrombus [...] as of this encounter (statuses as of 06/21/2024) Resolved Problems Problem Noted Date Diagnosed Date [...] HX OF BREAST MALIGNANCY - ri ght, [id number], 200702/26/2011 10/04/2013 Polyneuropathy in other dise ases [...] as of this encounter (statuses as of 06/21/2024) Immunizations Name Administration Dates Next Due COVID-19 mRNA, LNP-s, No Pre serve, 2-Dose Series (Trupanion) 07/19/2021,11/06/2020,10/11/2020 COVID-19, LNP-s, No Preserve , Sony-sucrose, Ages 12+ (Pfizer) 12/27/2021 COVID-19, MRNA-LNP, 24-25, P R, 30MCG/0.3ML, IM, 12YRS AND ABOVE (CeleryBolster) 04/28/2024 COVID-19, MRNA-LNP, PF, 30 M CG/0.3 mL, 12 YRS AND ABOVE, IM (Amminex) 07/13/2023 Covid-19, Mrna, Lnp-s, Pf, B ivalent, 30 Mcg, IM, 12 yrs and above (Trupanion) 07/17/2022 Pneumococcal Conjugate Vacc, 13 Valent (Prevnar) [...] money to get more. Never true 09/17/2022 Personal Safety Answer Date Recorded Do you feel unsafe or have concerns for your saf ety? No 05/23/2024 Do you have concerns for you r family's safety? (Household - for ages 0-17 years) Not on file 05/23/2024 Utilities Answer Date Recorded Do you have trouble paying y our heating, water, or electric bill? No 05/23/2024 Is your family able to pay t he heat, water, or electric bill? (Household - for ages 0-17 years) Not on file 05/23/2024 Does your family have access to good internet? (Household - for ages 0-17 years) Not on file 05/23/2024 Social Connections Answer Date Recorded How often do you feel lonely or isolated from those around you? (Adult - for ages 18 years and over) Not on file 02/02/2024 Transportation Needs Answer Date Record ed Do you have trouble getting a ride to medical visits or work? (Adult - for ages 18 years and over) Not on file 05/23/2024 Does your family have a hard time getting a ride to doctors visits? (Household - for ages 0-17 years) Not on file 05/23/2024 Has lack of transportation k ept you from medical appointments, meetings, work, or from getting things needed for daily living? Check all that apply. No 05/23/2024 Do you (or your family) have trouble finding or paying for a ride (transportation)? (Household - for ages 0-17 years) Not on file 05/23/2024 Housing Stability Answer Date Recorded Do you currently live in a s helter or have no steady place to sleep at night? (Adult - for ages 18 years and over) Not on file 05/23/2024 Do you think you are at risk of becoming homeless? (Adult - for ages 18 years and over) Not on file 05/23/2024 Does your family worry about paying for your home or becoming homeless? (Household - for ages 0-17 years) Not on file 1 Are you homeless or worried that you might be in the future? No 05/23/2024 Are you (or your family) jorje eless or worried that you might be in the future? (Household - for ages 0-17 years) Not on file Food Insecurity Answer Date Recorded Do you need food for this week? No 05/23/2024 Are you able to get enough f ood for your family? (Household - for ages 0-17 years) Not on file 05/23/2024 Does your family need food t his week? (Household - for ages 0-17 years) Not on file 05/23/2024 Do you always have enough fo od for your family? (Household - for ages 0-17 years) Not on file 05/23/2024 Sex and Gender Information Value Date Recorded Sex Assigned at Female 02/28/2021 1:20 PM EDT Gender Identity Female 02/28/2021 1:20 PM EDT Sexual Orientation Straight 02/28/2021 1: 20 PM EDT Job Start Date Occupation Industry Not on file Not on file Not on file documented as of this encounter Functional Status Functional Status Response Date of Assess ment Are you deaf or do you have serious difficulty hearing? Yes-LATOYA B/L hearing aids 05/23/2024 Are you blind or do you have serious difficulty seeing, even when wearing glasses? No 05/23/2024 Do you have serious difficul ty walking or climbing stairs? (5 years old or older) No 05/23/2024 Do you have difficulty dress ing or bathing? (5 years old or older) No 05/23/2024 Because of a physical, menta l, or emotional condition, do you have difficulty doing errands alone such as visiting a doctor s office or shopping? (15 years old or older) No 05/23/2024 Cognitive Status Response Date of Assessm ent Because of a physical, menta l, or emotional condition, do you have serious difficulty concentrating, remembering, or making decisions? (5 years old or older) No 05/23/2024 documented as of this encounter Miscellaneous Notes * Telephone Encounter - Swati Nunez LPN - 06/21/2024 10:07 AM EST Normal Remote: No Events Normal Device Function Alerts or events: None Battery: Battery is at 89%, 4.17 yrs @ 3.07V Sensing, impedance and thresholds reviewed Programmed parameters reviewed Presenting rhythm APBiVP with intermittent Heart Rate Histograms reviewed No significant changes noted Normal Remote: With Events Normal Device Function Events or Alerts: 3 Battery: Battery is at 89%, 4.00 yrs @ 3.07V Sensing, impedance and thresholds reviewed Programmed parameters reviewed Presenting rhythm APBiVP Heart Rate Histograms reviewed Tachycardia: Mode Switch Device High Atrial Rate event(s) triggered: 3 AT/AF [place]: 1% Tachycardia: AF Stored EGMs are consistent with or suggestive of Atrial Fibrillation AT/AF [place]: 1% Total number of events: 60 Additional Notes: Eliquis Atrial Lead Oversensing: [facility] Stored EGMs are consistent with or suggestive of physiologic atrial lead oversensing Total episodes: 60 Measured value: 1.9mV Programmed sensitivity settin.2mV Sensitivity reprogrammed: N Atrial Lead Undersensing Atrial lead signal amplitude suboptimal Stability of the signal over time needs to be monitored Measured value: 1.9mV Programmed sensitivity settin.2mV Sensitivity reprogrammed: N documented in this encounter Plan of Treatment Upcoming Encounters Date Type Department Care Team (Late st Contact Info) Description 07/11/2024 3:30 PM EST Hem/Onc Treatment Hematology/Oncology Treatment, [place] [address] [facility] [place] [address] Christin, Chair 11 Hem Onc Scene [address] [facility] [place] [address] 08/02/2024 10:20 AM EST Office Visit Podiatry [facility] [place] [address] [facility] [place] [address] Nicki Gomez, HELLEN [address] [place] [address] 10/03/2024 3:00 PM EST Office Visit Cardiology, [facility] [address] [place] [address] Rashmi Graham PA-C [address] [place] [address] 10/04/2024 3:00 PM EST Office Visit General Internal Medicine [facility] [address] [facility] [place] [address] Ruth Brandon MD [address] [facility] [place] [address] 11/22/2024 2:00 PM EDT Office Visit Cardiology, [facility] [address] [place] [address] Rashmi Graham PA-C [address] [place] [address] 04/28/2025 1:40 PM EDT Office Visit Rheumatology [address] [place], [place] [address] Sergio Coughlin MD [address] [place] [address] [place], [place] [address] Scheduled Procedures Name Priority Associated Diagnoses Date/Ti me COLONOSCOPY FLEXIBLE PROXIMA L DIAGNOSTIC Recall Special screening for malignant neoplasm of colon Health Maintenance Due Date Last Done Comments Yi's Esophagus Surveilance 04/05/2016 04/05/2013, 04/05/2013, 03/09/2012, Additional history exists *BISPHONATE OR OTHER ACCEPTABLE MEDICATION NEEDED FOR OSTEOPOROSIS (REFER TO SMARTSET #1146) 04/08/2024 DXA Scan 2024 2022, 04/18, 11/30/2014, Additional history exists COVID-19 Vaccine ( season) 2024 04/28/2024, 07/13/2023, 07/17/2022, Additional history exists Adult Wellness Visit 01/11/2025 01/12/2024, 09/17/19 23 Depression Screening 01/11/2025 01/12/2024, 01/12/20 24 Albumin/Creatinine Ratio 05/06/2025 05/06/2022, 01/2017 TSH 05/12/2025 05/12/2024, 01/2024, 05/06/2022, Additional history exists GFR 06/14/2025 06/14/2024, 05/18, 05/24/2024, Additional history exists DTap/Tdap Vaccines (3 - Td or Tdap) 04/29/2026 04/29/2016, 03/02/2006 Pneumococcal Vaccine: 65+ Years Completed 04/04/2015, 09/28/2012, 10/28/2006 Zoster Vaccines Completed 01/15/2019, 02/2018, 04/02/2011 Influenza Vaccine (FLU shot) Completed 07/2024, 04/28/2024, 05/14/2023, Additional history exists VITAMIN D LEVEL ONCE IN A LIFETIME-USE SMARTSET# 73959 Completed 06/08/2024, 04/20/2024, 02/10/2023, Additional history exists HPV (Gardasil) Vaccine Aged Out No lo nger eligible based on patient's age to complete this topic Hepatitis B Vaccine Aged Out No longe r eligible based on patient's age to complete this topic MENINGOCOCCAL (MENACTRA/MENVEO) Aged Out No longer eligible based on patient's age to complete this topic documented as of this encounter Medical Devices Implanted Type Area Surgical Pathologist Device Identifier Shelf Expiration Date Model / Serial / Lot Port 6fr Chronoflex [id number] - [id number] [place]ed:Q[place]: 1 [place] 02/22/2008 [place] [facility] [place]: Chest CR BARD : [employer] [id number] / / [id number] documented as of this encounter Advance Directives Documents on File Type Date Recorded Patient Supervisor Covering And Lining Expl anation Advance Directives and Living Will 05/26/2024 signed on 12/21/2020 ADVANCE DIRECTIVE / LIVING WILL * Full Code (Latest Code Status on File) Date Activated Date Inactivated Comments 05/23/2024 11:12 PM 05/25/2024 6:22 PM This order reflects the patients wishes and were consensually agreed upon. Question Answer Comments Discussion of Advance Direct juana occurred with: Not Discussed due to patient's condition * Full Code Date Activated Date Inactivated Comments 02/22/2008 6:21 PM 02/25/2008 5:28 PM * Full Code Date Activated Date Inactivated Comments 02/22/2008 11:42 AM 02/22/2008 6:21 PM * Full Code Date Activated Date Inactivated Comments 01/14/2008 1:06 PM 01/16/2008 7:05 PM Care Teams Fleet Manager/Dispatch Relationship Specialty Start Date End Date Ruth Brandon MD [address] [place] [address] PCP - General Internal Medicine 04/25/21 documented as of this encounter
--- OUTSIDE RECORDS SUMMARY | 2024-07-03 13:09 | External Medical Summary | Summary of Care ---
Author Name Unknown Organization [facility] Address [address] [place] [address] Phone [phone] Care Team Providers Care Drilling Plant Operator Name Role Phone Ruth Brandon MD Primary Care Provider + Reason for Visit * Reason Onset Date Comments Hospital Follow-Up Pt still has bruising, on arms/legs, tongue bruising has cleared up. [facility]. Hospital Follow-Up 06/23/2024 Encounter Details Date Type Department Care Team (Late st Contact Info) Description 05/30/2024 10:20 AM EDT Office Visit [facility] Kaushik Waller [address] [place] [address] Melanie Yuen PA-C [facility] [place] [address] Hospital discharge follow-up*; Insomnia, unspecified type; Subdural hemorrhage (HCC); Supratherapeutic INR; PAF (paroxysmal atrial fibrillation) (HCC); AVM (arteriovenous malformation) of stomach, acquired with hemorrhage Allergies Active Allergy Reactions Criticality Noted Date Comments Adhesive Tape Other (Please comment) 01/24/2008 Welts, blisters Bee Stings 02/14/2003 Bee Venom Hives 10/17/2019 Iodine Hives 10/17/2019 Ivp Dye 01/10/1998 hives documented as of this encounter (statuses as of 06/23/2024) Medications Medication Sig Dispensed Refills Start Date [...] TWICE A DAY 200 Tablet 3 3 024 Active Metoprolol Succinate ER 25 MG Oral [...] OTHER MEDICATIONS 100 Tablet 2 4 Active Amiodarone HCl 200 MG Oral Tablet (Cordarone) Take one-half Tablet by mouth in the morning. 50 Tablet 3 4 Active Pantoprazole Sodium 40 MG Oral Tablet Delayed Release (Protonix) Take 1 Tablet by mouth in the morning and 1 Tablet before bedtime. 60 Tablet 4 024 Active traZODone HCl 50 MG Oral Tablet (Desyrel)Indicatio ns:Insomnia, unspecified type Take 1 Tablet by mouth at bedtime. 30 Tablet 3 4 Active albuterol (VENTOLIN HFA) 108 (90 BASE) MCG/ACT inhalerIndications :Acute bronchitis, antibiotics not indicated Inhale 2 Puffs by mouth every 6 hours as needed for Wheezing. 3 Inhaler 1 8 024 Discontinued(Ak dication List Clean Up) Rosuvastatin Calcium 10 MG Oral Tablet (Crestor)Indicatio ns: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) TAKE ONE TABLET BY MOUTH EVERY DAY IN THE MORNING 90 Tablet 3 4 024 Discontinued(Re fill) levETIRAcetam 500 MG Oral Tablet (Keppra) Take 1 Tablet by mouth in the morning and 1 Tablet before bedtime. Do all this for 13 days. 26 Tablet 4 024 traZODone HCl 50 MG Oral Tablet (Desyrel)Vandanatio ns:Insomnia, unspecified type Take 1 Tablet by mouth at bedtime. 30 Tablet 3 4 024 Discontinued documented as of this encounter (statuses as of 06/23/2024) Active Problems Problem Noted Date Diagnosed Date SDH (subdural hematoma) 05/25/2024 PAF (paroxysmal atrial fibrillation) 05/24/2024 Chronic anticoagulation 05/24/2024 Acute blood loss anemia 05/24/2024 AVM (arteriovenous malformat ion) of stomach, acquired with hemorrhage 05/24/2024 Nonischemic cardiomyopathy 03/17/2024 Chronic atrial fibrillation 12/29/2023 Atherosclerosis of aorta 06/23/2023 Atherosclerosis of coronary artery of [place] heart without angina pectoris 06/23/2023 Atrial thrombus [...] as of this encounter (statuses as of 06/23/2024) Resolved Problems Problem Noted Date Diagnosed Date [...] HX OF BREAST MALIGNANCY - ri ght, [id number], 200702/26/2011 10/04/2013 Polyneuropathy in other dise ases [...] as of this encounter (statuses as of 06/23/2024) Immunizations Name Administration Dates Next Due COVID-19 mRNA, LNP-s, No Pre serve, 2-Dose Series ([employer]) 07/19/2021,11/06/2020,10/11/2020 COVID-19, LNP-s, No Preserve , Sony-sucrose, Ages 12+ (Pfizer) 12/27/2021 COVID-19, MRNA-LNP, 24-25, P R, 30MCG/0.3ML, IM, 12YRS AND ABOVE ([employer]) 04/28/2024 COVID-19, MRNA-LNP, PF, 30 M CG/0.3 mL, 12 YRS AND ABOVE, IM ([employer]) 07/13/2023 Covid-19, Mrna, Lnp-s, Pf, B ivalent, 30 Mcg, IM, 12 yrs and above ([employer]) 07/17/2022 Pneumococcal Conjugate Vacc, 13 Valent (Prevnar) [...] Sign Reading Time Taken Comments Blood Pressure 124/64 05/30/2024 11:18 AM EDT Pulse 69 05/30/2024 11:18 AM EDT Temperature 36.5 C (97.7 F) 05/30/2024 11:18 AM E DT Respiratory Rate - - Oxygen Saturation - - Inhaled Oxygen Concentration - - Weight 83 kg (183 lb 0.6 oz) 05/30/2024 11:18 AM EDT Height - - Body Mass Index 38.26 05/23/2024 10:22 PM EDT documented in this encounter Functional Status Functional Status Response [...] No 05/23/2024 documented as of this encounter Progress Notes * Melanie Yuen PA-C - 06/23/2024 12:21 AM EST Subjective Eduarda Bond is a 79 year old female that presents for Hospital Follow-Up (Pt still has bruising,on arms/legs, tongue bruising has cleared up. [facility] [place]23/2024./) and Hospital Follow-Up 79 y/o female presents for hospital d/c follow-up. Date of admission: 05/20/2024- [facility] Date of transfer to [place]: 05/23/2024 Date of discharge: 05/25/2024 Pt was admitted to [facility] 05/20 after having elevated INR at >9.5 with diffuse bruising, swollen tongue, black stools for 5 days. Hgb down to 6.5. Had blood transfusion [address] [facility] for further management. While admitted, CT scan was done and she was found to have subdural hematoma, sodecision was made to transfer her to [place] on 05/23 for further neuro care. Pt states that she isdoing much better- the bruising is mostly resolved except on her arms- the bruising on the upper arms is the most painful. She wants to make sure that nothing special needs done to help it resolve. She is still taking the Keppra for seizure precaution but has a follow-up with neurosurgery soon for the brain bleed, and is anticipating that she will be able to come off the medication. She is hopingthat she will be able to go on Eliquis once she has been stablilized from this incident instead of Coumadin so this won't happen again. She otherwise denies black, tarry stools, blood in the stool orurine, coughing up blood, fevers, chills, chest pain, SOB, nausea, vomiting. Pt states her only complaint is that she hasn't been sleeping. She didn't sleep in the hospital andshe hasn't been sleeping since she came home. She wants to know if there is anything she can take to help her sleep. Objective BP 124/64 | Pulse 69 | Temp 36.5 C (97.7 F) (Tympanic) | Wt 83 kg (183 lb 0.6 oz) | BMI 38.26 kg/m | BSA 1.84 m Body mass index is 38.26 kg/m. BP Readings from Last 3 Encounters: 06/14/24 126/72 06/07/24 130/62 05/30/24 124/64 Wt Readings from Last 3 Encounters: 06/14/24 82.2 kg (181 lb 4.8 oz) 06/07/24 82.3 kg (181 lb 6.4 oz) 05/30/24 83 kg (183 lb 0.6 oz) Physical Exam Vitals and nursing note reviewed. Constitutional: General: She is not in acute distress. Appearance: Normal appearance. HENT: Head: Normocephalic and atraumatic. Eyes: General: No scleral icterus. Extraocular Movements: Extraocular movements intact. Conjunctiva/sclera: Conjunctivae normal. Pupils: Pupils are equal, round, and reactive to light. Cardiovascular: Rate and Rhythm: Normal rate and regular rhythm. Heart sounds: No murmur heard. No friction rub. No gallop. Pulmonary: Effort: Pulmonary effort is normal. Breath sounds: Normal breath sounds. No stridor. No wheezing, rhonchi or rales. Musculoskeletal: Cervical back: Neck supple. Skin: General: Skin is warm and dry. Findings: No rash. Neurological: General: No focal deficit present. Mental Status: She is alert and oriented to person, place, and time. Psychiatric: Mood and Affect: Mood normal. Behavior: Behavior normal. Assessment and plan 1. Hospital discharge follow-up - DISCH MED RECON CUR MED LIS 2. Insomnia, unspecified type -trial of trazodone to help with sleep -reassured patient that this is not a controlled substance -advised she start with a half a tab, then icnrease to a full tab only if needed -she will let us know if it is helping or not - traZODone HCl 50 MG Oral Tablet (Desyrel); Take 1 Tablet by mouth at bedtime. Dispense: 30 Tablet; Refill: 3 3. Subdural hemorrhage (HCC) -follow-up with neuro as scheduled 4. Supratherapeutic INR -per MTM, cardio with regards to further anticoagulation 5. PAF (paroxysmal atrial fibrillation) (HCC) 6. AVM (arteriovenous malformation) of stomach, acquired with hemorrhage Total time today including reviewing chart before the visit, pertinent labs, imaging reports, face to face time, and documentation time was 40 minutes. The above was discussed and understanding was expressed. Melanie Yuen PA-C documented in this encounter Nursing Notes * Elkin Medina, PRINT COLOR OPERATOR - 05/30/2024 11:18 AM EDT The patient has been properly identified by confirmation of name and date of . Chief Complaint Patient presents with Hospital Follow-Up Pt still has bruising, on arms/legs, tongue bruising has cleared up. [facility] [place]. documented in this encounter Plan of Treatment Upcoming Encounters Date Type Department Care Team (Late st Contact Info) Description 07/11/2024 3:30 PM EST Hem/Onc Treatment Hematology/Oncology Treatment, [place] [address] [facility] [address] [place] [id number] Christin, Chair 11 Hem Onc [address] [place] [address] 08/02/2024 10:20 AM EST Office Visit Podiatry [facility] [place] [address] [place] [place] [address] Nicki Gomez DPM [address] [place] [address] 10/03/2024 3:00 PM EST Office Visit Cardiology, [facility] [address] [place] [address] Rashmi Graham PA-C [address] [address] 10/04/2024 3:00 PM EST Office Visit General Internal Medicine [facility] Christin [address] [place] [address] Ruth Brandon MD 200 [facility] [place] [address] 11/22/2024 2:00 PM EDT Office Visit Cardiology [facility] [address] [place] [address] Rashmi Graham PA-C [address] [place] [address] 04/28/2025 1:40 PM EDT Office Visit Rheumatology [facility] [place] [address] [place] [address] Sergio Coughlin MD [address] [place] [address] Scheduled Procedures Name Priority Associated Diagnoses Date/Ti [...] 24 Albumin/Creatinine Ratio 05/06/2025 05/06/2022, 11/0 01/2017 TSH 05/12/2025 05/12/2024, 020 01/2024, 05/06/2022, Additional history exists GFR 06/14/2025 06/14/2024, 05/18, 05/24/2024, Additional history exists DTap/Tdap Vaccines (3 - Td or Tdap) 04/29/2026 04/29/2016, 03/02/2006 Pneumococcal Vaccine: 65+ Years Completed 04/04/2015, 09/28/2012, 10/28/2006 Zoster Vaccines Completed 01/15/2019, 02/2018, 04/02/2011 Influenza Vaccine (FLU shot) Completed 07/2024, 04/28/2024, 05/14/2023, Additional history exists VITAMIN D LEVEL ONCE IN A LIFETIME-USE SMARTSET# [id number] Completed 06/08/2024, 04/20/2024, 02/10/2023, Additional history exists [...] encounter Medical Devices Implanted Type Area Animal Humane Agent Supervisor Device Identifier Shelf Expiration Date Model / Serial / Lot Port 6fr Chronoflex [id number] - [id number] Implanted:Qty: 1 on 02/22/2008 at [place] [facility] Left: Chest CR BARD : [employer] [id number] / / [id number] documented as of this encounter Visit Diagnoses Diagnosis Hospital discharge follow-up- Primary Other follow-up examination Insomnia, unspecified type Subdural hemorrhage (HCC) Subdural hemorrhage Supratherapeutic INR Abnormal coagulation profile PAF (paroxysmal atrial fibrillation) (HCC) Atrial fibrillation AVM (arteriovenous malformation) of stomach, acquired with hemorrhage Angiodysplasia of stomach and duodenum with hemorrhage documented in this encounter Advance Directives Documents on File Type Date Recorded Patient Spin Instructor Expl anation Advance Directives and Living Will [...] 1:06 PM 01/16/2008 7:05 PM Care Teams Drilling Plant Operator Relationship Specialty Start Date End Date Ruth Brandon MD [address] [facility] [place] [address] PCP - General Internal Medicine 04/25/21 documented as of this encounter"
--- OUTSIDE RECORDS SUMMARY | 2024-07-03 13:09 | External Medical Summary | Summary of Care ---
Author Name Unknown Organization [facility] Address [address] [place] [address] Phone [phone] Care Team Providers Care Steel Wheel Engraver Name Role Phone Ruth Brandon MD Primary Care Provider + Reason for Visit * Reason Onset Date Comments Advice 06/15/2024 Dr. Ruth norris Encounter Details Date Type Department Care Team (Late st Contact Info) Description 06/15/2024 Telephone General Internal Medicine [facility] [address] [place] [address] Ruth Brandon MD [address] [place] [phone] Advice (Dr. Ruth Brandon ) Allergies Active Allergy Reactions Criticality Noted Date Comments Adhesive Tape Other (Please comment) 01/24/2008 Welts, blisters Bee Stings 02/14/2003 Bee Venom Hives 10/17/2019 Iodine Hives 10/17/2019 Ivp Dye 01/10/1998 hives documented as of this encounter (statuses as of 06/15/2024) Medications Medication Sig Dispensed Refills Start Date [...] MORNING 90 Tablet 3 09/08/2023 5 Active Metoprolol Succinate ER 25 MG Oral [...] 1 Tablet before bedtime. 60 Tablet 05/24/2024 Active traZODone HCl 50 MG Oral Tablet (Desyrel)Indications :Insomnia, unspecified type Take 1 Tablet by mouth at bedtime. 30 Tablet 3 05/30/2024 Active Apixaban 5 MG Oral Tablet (Eliquis) Take 1 Tablet by mouth in the morning and 1 Tablet before bedtime. 180 Tablet 3 06/14/2024 Active documented as of this encounter (statuses as of 06/15/2024) Active Problems Problem Noted Date Diagnosed Date SDH (subdural hematoma) 05/25/2024 PAF (paroxysmal atrial fibrillation) 05/24/2024 Chronic anticoagulation 05/24/2024 Acute blood loss anemia 05/24/2024 AVM (arteriovenous malformat ion) of stomach, acquired with hemorrhage 05/24/2024 Nonischemic cardiomyopathy 03/17/2024 Chronic atrial fibrillation 12/29/2023 Atherosclerosis of aorta 06/23/2023 Atherosclerosis of coronary artery of [place] heart without angina pectoris 06/23/2023 Atrial thrombus [...] as of this encounter (statuses as of 06/15/2024) Resolved Problems Problem Noted Date Diagnosed Date [...] HX OF BREAST MALIGNANCY - ri ght, [id number], 200702/26/2011 10/04/2013 Polyneuropathy in other dise ases [...] as of this encounter (statuses as of 06/15/2024) Immunizations Name Administration Dates Next Due COVID-19 mRNA, LNP-s, No Pre serve, 2-Dose Series ([employer]) 07/19/2021,11/06/2020,10/11/2020 COVID-19, LNP-s, No Preserve , Sony-sucrose, Ages 12+ (Pfizer) 12/27/2021 COVID-19, MRNA-LNP, 23-24, P F, 30 MCG/0.3 mL, 12 YRS AND ABOVE, IM ([employer]) 07/13/2023 COVID-19, MRNA-LNP, 24-25, P R, 30MCG/0.3ML, IM, 12YRS AND ABOVE ([employer]) 04/28/2024 Covid-19, Mrna, Lnp-s, Pf, B ivalent, 30 Mcg, IM, 12 yrs and above ([employer]) 07/17/2022 Influenza, Whole Virus 09/15/1985 Pneumococcal Conjugate Vacc, 13 Valent (Prevnar) 04/04/2015 Pneumococcal Polysaccharide PPV23 (Pneumovax) 09/28/2012,10/28/2006 Season Influenza, Quad, PF, Adjuvanted, 65+ Yrs, IM (FLUAD) 04/27/2020 Seasonal Influenza Vac., MDV , IM, 0.5 mL (Fluzone) 04/18/2014,04/30/2013,06/05/2012,04/18,05/28/2010,05/24/2008,06/17/20 07,06/27/2006,07/22/2005,09/03/2004,1 10/04/2002,07/21/2002 Seasonal Influenza, High Dos e, Trivalent, PF, [...] or do you have serious difficulty hearing? Yes-[place], B/L hearing aids 05/23/2024 Are you blind [...] encounter Miscellaneous Notes * Telephone Encounter - Mendoza Nayak OSA - 06/15/2024 12:43 PM EDT Appt changed. Pt aware * Telephone Encounter - Sergio Coughlin MD - 06/15/2024 12:23 PM EDT Ok noted * Telephone Encounter - Louis Roads RN - 06/15/2024 11:38 AM EDT Pt coming for Reclast ordered by Dr. Coughlin. Dr. Coughlin- ayadi regarding Cardiology and apt for Reclast. We will have scheduling move this back. Scheduling- please move patients Reclast infusion apt back 2-3 weeks per patient request. * Telephone Encounter - Diana Dwyer OSA - 06/15/2024 11:15 AM EDT Eduarda called to inquire about postponing her 06/20 infusion for 2-[address] Gonsalez her cardiologistwants to put her on Eliquis and she had lab work completed for him yesterday and he would prefer she waits 2-3 weeks to have this infusion. Please contact Eduarda at [phone]. Thank you. documented in this encounter Plan of Treatment Upcoming Encounters Date Type Department Care Team (Latest Contact Info) Description 06/15/2024 5:10 PM EDT Anticoagulation Pharmacy, [facility] [address] [place] [address] [facility] [address] [place] [address] Atrial thrombus*; Thrombus due to any device, implant or graft, initial encounter 07/11/2024 3:30 PM EST Hem/Onc Treatment [facility]ematology[facility], [place] [facility] [phone] Christin, Chair 11 Hem Onc [address] [place] [address] 08/02/2024 10:20 AM EST Office Visit Podiatry [facility] [address] [place] [address] Nicki Gomez [facility] [address] [place] [address] 10/03/2024 3:00 PM EST Office Visit Cardiology, [facility] [address] [place] [address] Rashmi Graham PA-C [address] [place] [address] 10/04/2024 3:00 PM EST Office Visit General Internal Medicine [address] [place] [address] Ruth Brandon MD 200 [facility] [place] [address] 11/22/2024 2:00 PM EDT Office Visit Cardiology, [facility] [address] [place] [address] Rashmi Graham PA-C [address] [place] [address] 04/28/2025 1:40 PM EDT Office Visit Rheumatology [facility] [address] [place] [address] Sergio Coughlin MD [address] [place] [address] Scheduled Procedures Name Priority Associated Diagnoses Date/Ti [...] 01/12/2024, 01/12/20 24 Albumin/Creatinine Ratio 05/06/2025 05/06/2022, 1101/2017 TSH 05/12/2025 05/12/2024, 01/2024, 05/06/2022, Additional history exists GFR 06/14/2025 06/14/2024, 05/18, 05/24/2024, Additional history exists DTap/Tdap Vaccines (3 - Td or Tdap) 04/29/2026 04/29/2016, 03/02/2006 Pneumococcal Vaccine: 65+ Years Completed 04/04/2015, 09/28/2012, 10/28/2006 Zoster Vaccines Completed 01/15/2019, 02/2018, 04/02/2011 COVID-19 Vaccine Completed 04/28/2024, , 07/17/2022, Additional history exists Influenza Vaccine (FLU shot) Completed 07/2024, 04/28/2024, 05/14/2023, Additional history exists VITAMIN D LEVEL ONCE IN A LIFETIME-USE SMARTSET# [id number] Completed 06/08/2024, 04/20/2024, 02/10/2023, Additional history exists [...] this encounter Medical Devices Implanted Type Area Certified Nurse Operating Room Device Identifier Shelf Expiration Date Model / Serial / Lot Port 6fr Chronoflex [id number] - [id number] Implanted:Qty: 1 on 02/22/2008 at [place] [facility] [place]: Chest CR BARD : [employer] [id number] / / [id number] documented as of this encounter Advance Directives Documents on File Type Date Recorded Patient Director Of Adult Epilepsy Expl anation Advance Directives and Living Will [...] 1:06 PM 01/16/2008 7:05 PM Care Teams Steel Wheel Engraver Relationship Specialty Start Date End Date Ruth Brandon MD [address] [place] [address] [place] [address] PCP - General Internal Medicine 04/25/21 documented as of this encounter
--- OUTSIDE RECORDS SUMMARY | 2024-07-03 13:09 | External Medical Summary | Summary of Care ---
Author Name Unknown Organization [facility] Address [address] [place] [address] Phone [phone] Care Team Providers Care Metal Cleaner Name Role Phone Ruth Brandon MD Primary Care Provider + Reason for Visit * Reason Comments Medication Refill Encounter Details Date Type Department Care Team (Late st Contact Info) Description 06/15/2024 Refill Cardiology, [facility] 132 [facility] [place] [phone] Debi Fuentes MD [address] [place] [phone] 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) Allergies Active Allergy Reactions Criticality Noted Date Comments Adhesive Tape Other (Please comment) 01/24/2008 Welts, blisters Bee Stings 02/14/2003 Bee Venom Hives 10/17/2019 Iodine Hives 10/17/2019 Ivp Dye 01/10/1998 hives documented as of this encounter (statuses as of 06/16/2024) Medications Medication Sig Dispensed Refills Start Date [...] Active traZODone HCl 50 MG Oral Tablet (Desyrel)Indication s:Insomnia, unspecified type Take 1 Tablet by mouth [...] IN THE MORNING 90 Tablet 3 06/16/2024 5 Active Rosuvastatin Calcium 10 MG Oral Tablet (Crestor)Indication s: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) TAKE ONE TABLET BY MOUTH EVERY DAY IN THE MORNING 90 Tablet 3 09/08/2023 4 Discontinu ed(Refill) documented as of this encounter (statuses as of 06/16/2024) Active Problems Problem Noted Date Diagnosed Date SDH (subdural hematoma) 05/25/2024 PAF (paroxysmal atrial fibrillation) 05/24/2024 Chronic anticoagulation 05/24/2024 Acute blood loss anemia 05/24/2024 AVM (arteriovenous malformat ion) of stomach, acquired with hemorrhage 05/24/2024 Nonischemic cardiomyopathy 03/17/2024 Chronic atrial fibrillation 12/29/2023 Atherosclerosis of aorta 06/23/2023 Atherosclerosis of coronary artery of [place] heart without angina pectoris 06/23/2023 Atrial thrombus [...] as of this encounter (statuses as of 06/16/2024) Resolved Problems Problem Noted Date Diagnosed Date [...] HX OF BREAST MALIGNANCY - ri ght, [id number], 200702/26/2011 10/04/2013 Polyneuropathy in other dise ases [...] as of this encounter (statuses as of 06/16/2024) Immunizations Name Administration Dates Next Due COVID-19 mRNA, LNP-s, No Pre serve, 2-Dose Series ([employer]) 07/19/2021,11/06/2020,10/11/2020 COVID-19, LNP-s, No Preserve , Sony-sucrose, Ages 12+ ([place]) 12/27/2021 COVID-19, MRNA-LNP, 24-25, P R, 30MCG/0.3ML, IM, 12YRS AND ABOVE ([facility]) 04/28/2024 COVID-19, MRNA-LNP, PF, 30 M CG/0.3 mL, 12 YRS AND ABOVE, IM ([facility]) 07/13/2023 Covid-19, Mrna, Lnp-s, Pf, B ivalent, 30 Mcg, IM, 12 yrs and above ([employer]) 07/17/2022 Pneumococcal Conjugate Vacc, 13 Valent (Prevnar) [...] or do you have serious difficulty hearing? Yes-[place], B/L hearing aids 05/23/2024 Are you blind [...] encounter Miscellaneous Notes * Telephone Encounter - Anai Haro [facility] - 06/16/2024 10:59 AM EDT Signed Prescriptions: Disp Refills Rosuvastatin Calcium 10 MG Oral Tablet (Cr*90 Tab*3 Sig: TAKE ONE TABLET BY MOUTH EVERY DAY IN THE MORNING Authorizing Provider: DEBI FUENTES Ordering User: ANAI HARO * Telephone Encounter - Kristie Carranza CPhT - 06/16/2024 10:30 AM EDT Did you pend patient's preferred pharmacy and medication before forwarding?yes Pharmacy: [facility] Pending Prescriptions: Disp Refills Rosuvastatin Calcium 10 MG Oral Tablet (C*90 Tab*3 Sig: TAKE ONE TABLET BY MOUTH EVERY DAY IN THE MORNING Last Visit: 06/14/2024 (in office), Visit date not found (telemedicine) Next Visit: 10/03/2024 If no future appointments scheduled, and last appointment is greater than a year ago, please schedule patient for a follow-up appointment Last date the medication was ordered: 09/08/23 Is this request for a controlled substance?No Urine Drug Screen: Results for orders placed or performed in visit on 04/25/21 PAIN MANAGEMENT DRUG PANEL, URINE W/ INTERPRETATION Result Value Compliance Interpretation Based on the medication information provided: The presence of tramadol and o-desmethyltramadol is CONSISTENT with current tramadol use. Amphetamines Screen, U Negative Benzodiazepines Screen, U Negative Cannabinoids Screen, U Refer to confirmation results (A) Cocaine Metabolite Screen, U Negative Hydrocodone Screen, U Negative Methadone Metabolite Screen, U Negative Morphine/Codeine Screen, U Negative Oxycodone Screen, U Negative Valid Interpretation Normal Creatinine, U 275 Narrative Cutoff Concentrations: Drug Level Amphetamines 500 ng/mL Benzodiazepines 100 ng/mL Cannabinoids 50 ng/mL Cocaine Metabolite 150 ng/mL Hydrocodone / Hydromorphone 100 ng/mL Methadone Metabolite 100 ng/mL Morphine / Codeine 300 ng/mL Oxycodone / Oxymorphone 100 ng/mL Screening results are presumptive and can only be used for medical purposes. Confirmatory testing is available upon request. *Note: Due to a large number of results and/or encounters for the requested time period, some results have not been displayed. A complete set of results can be found in Results Review. Patient Phone Numbers Labs: Lab Results Component Value Date/Time CREAT 1.0 06/14/2024 11:00 AM CREAT 0.9 07/02/2020 02:20 PM POTASSIUM 4.1 06/14/2024 11:00 AM POTASSIUM 5.1 07/02/2020 02:20 PM TSH 5.40 (H) 05/12/2024 10:23 AM TSH 2.48 02/02/2020 10:02 AM LDL 53 09/22/2023 10:27 AM LDL 50 12/16/2022 09:26 AM LDL 85 02/02/2020 10:02 AM ALT 16 05/24/2024 09:15 AM ALT 15 02/02/2020 10:02 AM HGBA1C 6.0 (H) 09/02/2022 10:52 AM HGBA1C 5.8 (H) 10/18/2019 03:59 AM HGBA1C 5.6 03/28/2015 08:09 AM documented in this encounter Plan of Treatment Upcoming Encounters Date Type Department Care Team (Late st Contact Info) Description 07/11/2024 3:30 PM EST Hem/Onc Treatment Hematology/Oncology Treatment, [place] [address] [place] [address] Christin, Chair [address] [facility] [place] [address] 08/02/2024 10:20 AM EST Office Visit Podiatry [facility] [address] [place] [address] Nicki Gomez, DPJada [address] [place] [address] 10/03/2024 3:00 PM EST Office Visit Cardiology, [facility] 132 [facility] [place] [address] Rashmi Graham PA-C [address] [place] [address] 10/04/2024 3:00 PM EST Office Visit General Internal Medicine [facility] 200 [facility] [place] [address] Ruth Brandon MD 200 [facility] [place] [address] 11/22/2024 2:00 PM EDT Office Visit Cardiology, [facility] 132 [facility] [place] [address] Rashmi Graham PA-C 132 [facility] [place] [address] 04/28/2025 1:40 PM EDT Office Visit Rheumatology [place] [address] [facility] [place] [address] Sergio Coughlin MD [address] [place] [address] [place] [address] Scheduled Procedures Name Priority Associated Diagnoses Date/Ti [...] D LEVEL ONCE IN A LIFETIME-USE SMARTSET# [id number] Completed 06/08/2024, 04/20/2024, 02/10/2023, Additional history exists [...] this encounter Medical Devices Implanted Type Area Pricing Strategist Device Identifier Shelf Expiration Date Model / Serial / Lot Port 6fr Chronoflex [id number] - [id number] Implanted:Qty: 1 on 02/22/2008 [place] [facility] [place] Chest CR BARD : ACCESS SYSTEMS [id number] / / [id number] documented as of this encounter Visit Diagnoses Diagnosis 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) documented in this encounter Advance Directives Documents on File Type Date Recorded Patient Community Living Specialist Expl anation Advance Directives and Living Will [...] Date End Date Ruth Brandon MD 200 [facility] [place] [address] PCP - General Internal Medicine 04/25/21 documented as of this encounter
--- OUTSIDE RECORDS SUMMARY | 2024-07-03 13:09 | External Medical Summary | Summary of Care ---
Author Name Unknown Organization [facility] Address [address] [place] [address] Phone [phone] Care Team Providers Care Guide Travel Name Role Phone Ruth Brandon MD Primary Care Provider + Reason for Visit * Reason Onset Date Comments Advice 06/15/2024 Dr. Ruth norris Encounter Details Date Type Department Care Team (Late st Contact Info) Description 06/15/2024 Telephone General Internal Medicine [facility] [address] [place] [address] Ruth Brandon MD [address] [place] [phone] Advice (Dr. Ruth Brandon ) Allergies Active [...] aorta 06/23/2023 Atherosclerosis of coronary artery of [place] heart without angina pectoris 06/23/2023 Atrial thrombus [...] HX OF BREAST MALIGNANCY - ri ght, [id number], 200702/26/2011 10/04/2013 Polyneuropathy in other dise ases [...] mRNA, LNP-s, No Pre serve, 2-Dose Series ([employer]) 07/19/2021,11/06/2020,10/11/2020 COVID-19, LNP-s, No Preserve , Sony-sucrose, Ages 12+ (Pfizer) 12/27/2021 COVID-19, MRNA-LNP, 23-24, P F, 30 MCG/0.3 mL, 12 YRS AND ABOVE, IM ([employer]) 07/13/2023 COVID-19, MRNA-LNP, 24-25, P R, 30MCG/0.3ML, IM, 12YRS AND ABOVE ([employer]) 04/28/2024 Covid-19, Mrna, Lnp-s, Pf, B ivalent, 30 Mcg, IM, 12 yrs and above ([employer]) 07/17/2022 Influenza, Whole Virus 09/15/1985 Pneumococcal Conjugate [...] or do you have serious difficulty hearing? Yes-SO[place], B/L hearing aids 05/23/2024 Are you blind [...] Ok noted * Telephone Encounter - Louis Rodas RN - 06/15/2024 11:38 AM EDT Pt [...] have this infusion. Please contact Eduarda at [phone]. Thank you. documented in this encounter Plan of Treatment Upcoming Encounters Date Type Department Care Team (Late st Contact Info) Description 07/11/2024 3:30 PM EST Hem/Onc Treatment Hematology/Oncology Treatment, [place] [address] [place] [address] Christin, Chair 11 Hem Onc [facility] 200 [facility] [place] [address] 08/02/2024 10:20 AM EST Office Visit Podiatry [facility] [address] [place] [address] Nicki Gomez DPM [address] [place] [address] 10/03/2024 3:00 PM EST Office Visit Cardiology, [facility] [place] [address] Rashmi Graham PA-C 132 [facility] [place] [address] 10/04/2024 3:00 PM EST Office Visit General Internal Medicine [facility] 200 [facility] [place] [address] Ruth Brandon MD 200 [facility] [place] [address] 11/22/2024 2:00 PM EDT Office Visit Cardiology, [facility] 132 [facility] [place] [address] Rashmi Graham PA-C [facility] [place] [address] 04/28/2025 1:40 PM EDT Office Visit Rheumatology [place] [address] [facility] [address] Sergio Coughlin MD [address] [place] [address] [place] [address] Scheduled Procedures Name Priority Associated Diagnoses Date/Ti [...] D LEVEL ONCE IN A LIFETIME-USE SMARTSET# [id number] Completed 06/08/2024, 04/20/2024, 02/10/2023, Additional history exists [...] this encounter Medical Devices Implanted Type Area Head Of Mathematics Device Identifier Shelf Expiration Date Model / Serial / Lot Port 6fr Chronoflex [id number] - [id number] Implanted:Qty: 1 on 02/22/2008 at [facility] Left: Chest CR BARD : ACCESS SYSTEMS [id number] / / [id number] documented as of this encounter Advance Directives Documents on File Type Date Recorded Patient Fx Artist Expl anation Advance Directives and Living Will [...] 1:06 PM 01/16/2008 7:05 PM Care Teams Guide Travel Relationship Specialty Start Date End Date Ruth Brandon MD [address] [place] [address], [place] [id number] PCP - General Internal Medicine 04/25/21 documented as of this encounter
--- OUTSIDE RECORDS SUMMARY | 2024-07-03 13:10 | External Medical Summary | Summary of Care ---
Author Name Unknown Organization [facility] Address [address] [place] [address] Phone [phone] Care Team Providers Care Degreaser Name Role Phone Ruth Brandon MD Primary Care Provider + Reason for Visit * Reason Comments Outpatient Testing Encounter Details Date Type Department Care Team (Late st Contact Info) Description 06/08/2024 1:50 PM EDT Laboratory Laboratory, [facility] 132 [facility] [place] [address] YanezCandice broussard [facility] 132 [facility] [place] [address] Atrial thrombus; Thrombus due to any device, implant or graft, initial encounter; Anticoagulation management encounter; Senile osteoporosis Allergies Active Allergy Reactions Criticality Noted Date Comments Adhesive Tape Other (Please comment) 01/24/2008 Welts, blisters Bee Stings 02/14/2003 Bee Venom Hives 10/17/2019 Iodine Hives 10/17/2019 Ivp Dye 01/10/1998 hives documented as of this encounter (statuses as of 06/08/2024) Medications Medication Sig Dispensed Refills Start Date [...] at bedtime. 30 Tablet 3 05/30/2024 Active documented as of this encounter (statuses as of 06/08/2024) Active Problems Problem Noted Date Diagnosed Date SDH (subdural hematoma) 05/25/2024 PAF (paroxysmal atrial fibrillation) 05/24/2024 Chronic anticoagulation 05/24/2024 Acute blood loss anemia 05/24/2024 AVM (arteriovenous malformat ion) of stomach, acquired with hemorrhage 05/24/2024 Nonischemic cardiomyopathy 03/17/2024 Chronic atrial fibrillation 12/29/2023 Atherosclerosis of aorta 06/23/2023 Atherosclerosis of coronary artery of [place] heart without angina pectoris 06/23/2023 Atrial thrombus [...] as of this encounter (statuses as of 06/08/2024) Resolved Problems Problem Noted Date Diagnosed Date [...] HX OF BREAST MALIGNANCY - ri ght, [id number], 200702/26/2011 10/04/2013 Polyneuropathy in other dise ases [...] as of this encounter (statuses as of 06/08/2024) Immunizations Name Administration Dates Next Due COVID-19 mRNA, LNP-s, No Pre serve, 2-Dose Series ([employer]) 07/19/2021,11/06/2020,10/11/2020 COVID-19, LNP-s, No Preserve , Sony-sucrose, Ages 12+ (Pfizer) 12/27/2021 COVID-19, MRNA-LNP, 23-24, P F, 30 MCG/0.3 mL, 12 YRS AND ABOVE, IM ([facility]) 07/13/2023 COVID-19, MRNA-LNP, 24-25, P R, 30MCG/0.3ML, IM, 12YRS AND ABOVE ([facility]) 04/28/2024 Covid-19, Mrna, Lnp-s, Pf, B [...] or do you have serious difficulty hearing? Yes-LATOYA, B/L hearing aids 05/23/2024 Are you blind [...] No 05/23/2024 documented as of this encounter Plan of Treatment Upcoming Encounters Date Type Department Care Team (Late st Contact Info) Description 06/14/2024 10:00 AM EDT Office Visit Cardiology, [facility] [address] [place] [address] Ramsey Gonsalez MD 132 [place] [address] 06/15/2024 5:10 PM EDT Anticoagulation Pharmacy, [facility] [address] [place] [address] [facility] [place] [address] 06/20/2024 1:30 PM EST Hem/Onc Treatment Hematology/Oncology Treatment, [place] [address] [facility] [place] [address] Christin, Chair 8 Hem Onc [facility] 200 [facility] [place] [address] 08/02/2024 10:20 AM EST Office Visit Podiatry [facility] [address] [place] [address] Nicki Gomez DPM 132 [place] [address] 10/03/2024 3:00 PM EST Office Visit Cardiology, [facility] 132 [place] [address] Rashmi Graham, PADamian [address] [place] [address] 10/04/2024 3:00 PM EST Office Visit General Internal Medicine [facility] [address] [place] [address] [address] Ruth Brandon MD [address] [place] [address] 11/22/2024 2:00 PM EDT Office Visit Cardiology, [facility] [address] [place] [address] Rashmi Graham, KATHARINE [address] [place] [address] 04/28/2025 1:40 PM EDT Office Visit Rheumatology [place] [address] [place], [place] [address] Sergio Coughlin MD [facility] [place] [employer] [place], [place] [address] Pending Results Name Type Priority Associated Diagnoses Date /Time PT INR Lab Routine Atrial thrombus Thrombus due to any device, implant or graft, initial encounter Anticoagulation management encounter 06/08/2024 1:48 PM EDT CREATININE Lab Routine Senile osteoporosis 06/08/2024 1:48 PM EDT CALCIUM Lab Routine Senile osteoporosis 06/08/2024 1:48 PM EDT 25-HYDROXY VITAMIN D Lab Routine Senile osteoporosis 06/08/2024 1:48 PM EDT Scheduled Procedures Name Priority Associated [...] 05/06/2025 05/06/2022, 11/0 01/2017 TSH 05/12/2025 05/12/2024, 01/2024, 05/06/2022, Additional history exists GFR 05/24/2025 05/24/2024, 02/2024, 05/12/2024, Additional history exists DTap/Tdap Vaccines (3 - Td or Tdap) 04/29/2026 04/29/2016, 03/02/2006 Pneumococcal Vaccine: 65+ Years Completed 04/04/2015, 09/28/2012, 10/28/2006 Zoster Vaccines Completed 01/15/2019, 02/2018, 04/02/2011 VITAMIN D LEVEL ONCE IN A LIFETIME-USE SMARTSET# [id number] Completed 04/20/2024, 02/10/2023, 03/18/2021, Additional history exists COVID-19 Vaccine Completed 04/28/2024, , 07/17/2022, Additional history exists Influenza Vaccine (FLU shot) Completed 07/2024, 04/28/2024, 05/14/2023, Additional history exists HPV (Gardasil) Vaccine Aged Out No lo nger eligible based on patient's age to complete this topic Hepatitis B Vaccine Aged Out No longe r eligible based on patient's age to complete this topic MENINGOCOCCAL (MENACTRA/MENVEO) Aged Out No longer eligible based on patient's age to complete this topic documented as of this encounter Medical Devices Implanted Type Area Senior Portfolio Manager Device Identifier Shelf Expiration Date Model / Serial / Lot Port 6fr Chronoflex [id number] - [id number] [place]ed:Q[place] [facility] [place] Chest CR BARD : ACCESS SYSTEMS [id number] / / [id number] documented as of this encounter Visit Diagnoses Diagnosis Atrial thrombus Other ill-defined heart disease Thrombus due to any device, implant or graft, initial encounter Anticoagulation management encounter Encounter for therapeutic drug monitoring Senile osteoporosis documented in this encounter Advance Directives Documents on File Type Date Recorded Patient Hobbing Press Operator Expl anation Advance Directives and Living Will [...] 1:06 PM 01/16/2008 7:05 PM Care Teams Degreaser Relationship Specialty Start Date End Date Ruth Brandon MD 200 [place] [address] PCP - General Internal Medicine 04/25/21 documented as of this encounter
--- OUTSIDE RECORDS SUMMARY | 2024-07-03 13:10 | External Medical Summary | Summary of Care ---
Author Name Unknown Organization [facility] Address [address] [place] [address] Phone [phone] Care Team Providers Care Marine Meteorologist Name Role Phone Ruth Brandon MD Primary Care Provider + Reason for Visit * Reason Onset Date Comments Advice 06/15/2024 Dr. Ruth norris Encounter Details Date Type Department Care Team (Late st Contact Info) Description 06/15/2024 Telephone General Internal Medicine [facility] [address] [place] [address] Ruth Brandon MD [address] [place] [phone] Advice (Dr. Ruth Brandon ) Allergies Active [...] aorta 06/23/2023 Atherosclerosis of coronary artery of [place] heart without angina pectoris 06/23/2023 Atrial thrombus [...] HX OF BREAST MALIGNANCY - ri ght, [id number], 200702/26/2011 10/04/2013 Polyneuropathy in other dise ases [...] mRNA, LNP-s, No Pre serve, 2-Dose Series ([employer]) 07/19/2021,11/06/2020,10/11/2020 COVID-19, LNP-s, No Preserve , Sony-sucrose, Ages 12+ (Pfizer) 12/27/2021 COVID-19, MRNA-LNP, 23-24, P F, 30 MCG/0.3 mL, 12 YRS AND ABOVE, IM ([employer]) 07/13/2023 COVID-19, MRNA-LNP, 24-25, P R, 30MCG/0.3ML, IM, 12YRS AND ABOVE ([facility] [facility]) 04/28/2024 Covid-19, Mrna, Lnp-s, Pf, B ivalent, 30 Mcg, IM, 12 yrs and above ([employer]) 07/17/2022 Influenza, Whole Virus 09/15/1985 Pneumococcal Conjugate [...] or do you have serious difficulty hearing? Yes-SAXMAN, B/L hearing aids 05/23/2024 Are you blind [...] encounter Miscellaneous Notes * Telephone Encounter - Sergio Coughlin MD - 06/15/2024 12:23 PM EDT Ok noted * Telephone Encounter - Louis Rodas RN - 06/15/2024 11:38 AM EDT Pt coming for Reclast ordered by Dr. Coughlin. Dr. Coughlin- fyi regarding Cardiology and apt for Reclast. We [...] have this infusion. Please contact Eduarda at [phone]. Thank you. documented in this encounter Plan of Treatment Upcoming Encounters Date Type Department Care Team (Latest Contact Info) Description 06/15/2024 5:10 PM EDT Anticoagulation Pharmacy, [facility] [address] [place] [address] [facility] 132 [facility] [place] [address] Atrial thrombus*; Thrombus due to any device, implant or graft, initial encounter 06/20/2024 1:30 PM EST Hem/Onc Treatment Hematology/Oncology Treatment, [place] [address] [place] [phone] Christin, Chair 8 Hem Onc [facility] 200 [facility] [place] [address] 08/02/2024 10:20 AM EST Office Visit Podiatry [facility] [address] [place] [address] Nicki Gomez DPM [address] [place] [address] 10/03/2024 3:00 PM EST Office Visit Cardiology, [facility] [address] [place] [address] Rashmi Graham PA-C [address] [place] [address] 10/04/2024 3:00 PM EST Office Visit General Internal Medicine [facility] 200 [facility] [place] [address] Ruth Brandon MD 200 [facility] [place] [address] 11/22/2024 2:00 PM EDT Office Visit Cardiology, [facility] [address] [place] [address] Rashmi Graham PA-C [address] [place] [address] 04/28/2025 1:40 PM EDT Office Visit Rheumatology [address] [place] [address] Sergio Coughlin MD [address] [place] [address] [place] [address] Scheduled Procedures Name Priority Associated Diagnoses Date/Ti [...] 24 Albumin/Creatinine Ratio 05/06/2025 05/06/2022, 110 01/2017 TSH 05/12/2025 05/12/2024, 0 01/2024, 05/06/2022, Additional history exists GFR 06/14/2025 [...] D LEVEL ONCE IN A LIFETIME-USE SMARTSET# [id number] Completed 06/08/2024, 04/20/2024, 02/10/2023, Additional history exists [...] this encounter Medical Devices Implanted Type Area Dental Office Manager Device Identifier Shelf Expiration Date Model / Serial / Lot Port 6fr Chronoflex [id number] - [id number] Implanted:Qty: 1 on 02/22/2008 at [facility] Left: Chest CR BARD : ACCESS SYSTEMS [id number] / / [id number] documented as of this encounter Advance Directives Documents on File Type Date Recorded Patient Focuser Expl anation Advance Directives and Living Will [...] 1:06 PM 01/16/2008 7:05 PM Care Teams Marine Meteorologist Relationship Specialty Start Date End Date Ruth Brandon MD 200 [facility] [place] [address] PCP - General Internal Medicine 04/25/21 documented as of this encounter
--- OUTSIDE RECORDS SUMMARY | 2024-07-03 13:10 | External Medical Summary | Summary of Care ---
Author Name Unknown Organization [facility] Address [address] [place] [address] Phone [phone] Care Team Providers Care Bead Inspector Name Role Phone Ruth Brandon MD Primary Care Provider + Reason for Visit * Reason Comments Dosage Adjustment Via Phone (anticoag Cl inic) Encounter Details Date Type Department Care Team (Latest Contact Info) Description 06/15/2024 5:10 PM EDT Anticoagulation Pharmacy, [facility] [address] [facility] 132 [place] [address] Atrial thrombus*; Thrombus due to any device, [...] aorta 06/23/2023 Atherosclerosis of coronary artery of [place] heart without angina pectoris 06/23/2023 Atrial thrombus [...] HX OF BREAST MALIGNANCY - ri ght, [id number], 200702/26/2011 10/04/2013 Polyneuropathy in other dise ases [...] mRNA, LNP-s, No Pre serve, 2-Dose Series (EG Technology) 07/19/2021,11/06/2020,10/11/2020 COVID-19, LNP-s, No Preserve , Sony-sucrose, Ages 12+ (Pfizer) 12/27/2021 COVID-19, MRNA-LNP, 23-24, P F, 30 MCG/0.3 mL, 12 YRS AND ABOVE, IM (Roomer [employer]) 07/13/2023 COVID-19, MRNA-LNP, 24-25, P R, 30MCG/0.3ML, IM, 12YRS AND ABOVE (EG Technology-CoinsetterirnatSpinal Restoration) 04/28/2024 Covid-19, Mrna, Lnp-s, Pf, B ivalent, 30 Mcg, IM, 12 yrs and above ([employer] Technology) 07/17/2022 Pneumococcal Conjugate Vacc, 13 Valent (Prevnar) [...] Progress Notes * Tete Guerrero RPh - 06/15/2024 8:11 AM EDT Patient started on apixaban on 06/14. No longer on warfarin and no longer needs monitoring. Will discharge. Tete Guerrero, Pharm D, BCACP Clinical Pharmacist 06/15/2024, 8:11 AM documented in this encounter Plan of Treatment Upcoming Encounters Date Type Department Care Team (Late st Contact Info) Description 06/20/2024 1:30 PM EST Hem/Onc Treatment Hematology/[facility]cology Treatment, [place] [facility] [phone] Christin, Chair 8 Hem On[address] [place] [address] 08/02/2024 10:20 AM EST Office Visit Podiatry [facility] [address] [place] [address] Nicki Gomez DPM [address] [place] [address] 10/03/2024 3:00 PM EST Office Visit Cardiology, [facility] [address] [place] [address] Rashmi Graham PA-C [address] [place] [address] 10/04/2024 3:00 PM EST Office Visit General Internal Medicine [facility] [place] 200 [place] [address] Ruth Brandon MD 200 [facility] [place] [address] 11/22/2024 2:00 PM EDT Office Visit Cardiology, [facility] [address] [place] [address] Rashmi Graham PA-C [address] [place] [address] 04/28/2025 1:40 PM EDT Office Visit Rheumatology [facility] [address] [place] [address] Sergio Coughlin MD [address] [place] [address] Scheduled Procedures Name Priority Associated Diagnoses Date/Ti [...] Ratio 05/06/2025 05/06/2022, 1101/2017 TSH 05/12/2025 05/12/2024, 0201/2024, 05/06/2022, Additional history exists GFR 06/14/2025 06/14/2024, [...] D LEVEL ONCE IN A LIFETIME-USE SMARTSET# [id number] Completed 06/08/2024, 04/20/2024, 02/10/2023, Additional history exists [...] encounter Medical Devices Implanted Type Area Medical Recruiter Device Identifier Shelf Expiration Date Model / Serial / Lot Port 6fr Chronoflex [id number] - [id number] [place]ed:[place] 1 [place] [facility] [place] Chest CR BARD : ACCESS SYSTEMS [id number] / / [id number] documented as of this encounter Visit Diagnoses Diagnosis Atrial thrombus- Primary Other ill-defined heart disease Thrombus due to any device, implant or graft, initial encounter documented in this encounter Advance Directives Documents on File Type Date Recorded 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
--- OUTSIDE RECORDS SUMMARY | 2024-07-03 13:10 | External Medical Summary | Summary of Care ---
Author Name Unknown Organization [facility] Address [address] [place] [address] Phone [phone] Care Team Providers Care Train Crew Member Name Role Phone Ruth Brandon MD Primary Care Provider + Reason for Visit * Reason Comments Outpatient Testing Encounter Details Date Type Department Care Team (Late st Contact Info) Description 06/14/2024 11:10 AM EDT Laboratory Laboratory, [facility] [place] 132 [facility] [place] [phone] YanezCandice broussard [facility] 132 [facility] [address] Idiopathic cardiomyopathy (HCC); SDH (subdural hematoma) (HCC); PAF (paroxysmal atrial fibrillation) ([facility]) Allergies Active Allergy Reactions Criticality Noted Date Comments Adhesive Tape Other (Please comment) 01/24/2008 Welts, blisters Bee Stings 02/14/2003 Bee Venom Hives 10/17/2019 Iodine Hives 10/17/2019 Ivp Dye 01/10/1998 hives documented as of this encounter (statuses as of 06/14/2024) Medications Medication Sig Dispensed Refills Start Date [...] as of this encounter (statuses as of 06/14/2024) Active Problems Problem Noted Date Diagnosed Date SDH (subdural hematoma) 05/25/2024 PAF (paroxysmal atrial fibrillation) 05/24/2024 Chronic anticoagulation 05/24/2024 Acute blood loss anemia 05/24/2024 AVM (arteriovenous malformat ion) of stomach, acquired with hemorrhage 05/24/2024 Nonischemic cardiomyopathy 03/17/2024 Chronic atrial fibrillation 12/29/2023 Atherosclerosis of aorta 06/23/2023 Atherosclerosis of coronary artery of citizen [place] heart without angina pectoris 06/23/2023 Atrial [...] as of this encounter (statuses as of 06/14/2024) Resolved Problems Problem Noted Date Diagnosed Date [...] HX OF BREAST MALIGNANCY - ri ght, [id number], 200702/26/2011 10/04/2013 Polyneuropathy in other dise ases [...] as of this encounter (statuses as of 06/14/2024) Immunizations Name Administration Dates Next Due COVID-19 mRNA, LNP-s, No Pre serve, 2-Dose Series ([employer]) 07/19/2021,11/06/2020,10/11/2020 COVID-19, LNP-s, No Preserve , Sony-sucrose, Ages 12+ (Pfizer) 12/27/2021 COVID-19, MRNA-LNP, 23-24, P F, 30 MCG/0.3 mL, 12 YRS AND ABOVE, IM ([facility]) 07/13/2023 COVID-19, MRNA-LNP, 24-25, P R, 30MCG/0.3ML, IM, 12YRS AND ABOVE (Social[facility]Min[facility]) 04/28/2024 Covid-19, Mrna, Lnp-s, Pf, B ivalent, 30 Mcg, IM, 12 yrs and above ([employer]) 07/17/2022 Pneumococcal Conjugate Vacc, 13 Valent [...] Team (Late st Contact Info) Description 06/15/2024 5:10 PM EDT Anticoagulation Pharmacy, [facility] [place] [address] [place] [address] [facility] [address] [place] [address] 06/20/2024 1:30 PM EST Hem/Onc Treatment Hematology/Oncology Treatment, [place] [address] [facility] [address] [place] [phone] Christin, Chair 8 Hem Onc [facility] 200 [facility] [place] [address] 08/02/2024 10:20 AM EST Office Visit Podiatry [facility] [place] [address] [place] [address] Nicki Gomez DPM [address] [place] [address] 10/03/2024 3:00 PM EST Office Visit Cardiology, [facility] [place] [address] [place] [address] Rashmi Graham PA-C 132 [facility] [place] [address] 10/04/2024 3:00 PM EST Office Visit General Internal Medicine [facility] Christin [place] [address] [place] [address] Ruth Brandon MD 200 [facility] [place] [address] 11/22/2024 2:00 PM EDT Office Visit Cardiology, [facility] [place] [address] [place] [address] Rashmi Graham PA-C [address] [place] [address] 04/28/2025 1:40 PM EDT Office Visit Rheumatology [facility] [address] [facility] [place] [address] Sergio Coughlin MD [address] [employer] [place] [address] Pending Results Name Type Priority Associated Diagnoses Date /Time CBC WITH WBC DIFFERENTIAL Lab Routine Idiopathic cardiomyopathy (HCC) SDH (subdural hematoma) (HCC) PAF (paroxysmal atrial fibrillation) (HCC) 06/14/2024 11:00 AM EDT BASIC METABOLIC PANEL Lab Routine Idiopathic cardiomyopathy (HCC) SDH (subdural hematoma) (HCC) PAF (paroxysmal atrial fibrillation) (HCC) 06/14/2024 11:00 AM EDT CBC Lab Routine Idiopathic cardiomyopathy (HCC) SDH (subdural hematoma) (HCC) PAF (paroxysmal atrial fibrillation) (HCC) 06/14/2024 11:00 AM EDT DIFFERENTIAL, AUTOMATED Lab Routine Idiopathic cardiomyopathy (HCC) SDH (subdural hematoma) (HCC) PAF (paroxysmal atrial fibrillation) (HCC) 06/14/2024 11:00 AM EDT Scheduled Procedures Name Priority Associated [...] 05/12/2024, 01/2024, 05/06/2022, Additional history exists GFR 06/08/2025 06/08/2024, 03/2024, 05/23/2024, Additional history exists DTap/Tdap Vaccines (3 - Td or Tdap) 04/29/2026 04/29/2016, 03/02/2006 Pneumococcal Vaccine: 65+ Years Completed 04/04/2015, 09/28/2012, 10/28/2006 Zoster Vaccines Completed 01/15/2019, 02/2018, 04/02/2011 COVID-19 Vaccine Completed 04/28/2024, , 07/17/2022, Additional history exists Influenza Vaccine (FLU shot) Completed 07/2024, 04/28/2024, 05/14/2023, Additional history exists VITAMIN D LEVEL ONCE IN A LIFETIME-USE SMARTSET# [id number] Completed 06/08/2024, 04/20/2024, 02/10/2023, Additional history exists [...] this encounter Medical Devices Implanted Type Area City Detective Device Identifier Shelf Expiration Date Model / Serial / Lot Port 6fr Chronoflex [id number] - [id number] [place]planted:[place] 1 [place] 02[place]22[place]2008 [place] [facility] [place]: Chest CR BARD : ACCESS SYSTEMS [id number] / / [id number] documented as of this encounter Visit Diagnoses Diagnosis Idiopathic cardiomyopathy (HCC) Other primary cardiomyopathies SDH (subdural hematoma) (HCC) Subdural hemorrhage PAF (paroxysmal atrial fibrillation) (HCC) Atrial fibrillation Atrial thrombus- Primary Other ill-defined heart disease Thrombus due to any device, implant or graft, initial encounter documented in this encounter Advance Directives Documents on File Type Date Recorded Patient 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 Question Answer Comments Discussion of Advance Direct juaan occurred with: Not Discussed due to patient's condition * Full Code Date Activated Date Inactivated Comments 02/22/2008 6:21 PM 02/25/2008 5:28 PM * Full Code Date Activated Date Inactivated Comments 02/22/2008 11:42 AM 02/22/2008 6:21 PM * Full Code Date Activated Date Inactivated Comments 01/14/2008 1:06 PM 01/16/2008 7:05 PM Care Teams Train Crew Member Relationship Specialty Start Date End Date Ruth Brandon MD [address] [place] [address], [place] [address] PCP - General Internal Medicine 04/25/21 documented as of this encounter
--- OUTSIDE RECORDS SUMMARY | 2024-07-03 13:10 | External Medical Summary ---
Author Name Unknown Address Unknown Organization [id number]:LABORATORY [facility] [address] [place] [address] Laboratory Report Ordering Provider Test Date Status ALFREDO CARRERA 06/14/2024 11:00:20 Final Observation Date Value Abnormality Reference (Units ) Status BUN 06/14/2024 11:00:20 13 6-20 (mg/dL) Final Creatinine 06/14/2024 11:00:20 1.0 0.5-1.0 (mg/dL) Final Glomerular filtration rate/1.73 sq M.predicted [Volume Rate/Area] in Serum, Plasma or Blood by Creatinine-based formula (CKD-EPI) 06/14/2024 11:00:20 54 Below low normal >=60 (mL/min) Final eGFR is calculated based on the CKD-EPI 2020 equation. Sodium 06/14/2024 11:00:20 141 135-146 (m mol/L) Final Potassium 06/14/2024 11:00:20 4.1 3.5-5.1 (m mol/L) Final Cl 06/14/2024 11:00:20 101 98-107 (mm ol/L) Final CO2 06/14/2024 11:00:20 31 22-32 (mmo l/L) Final Anion gap 06/14/2024 11:00:20 9 7-15 (mmol /L) Final Glucose 06/14/2024 11:00:20 97 70-120 (mg /dL) Final Calcium 06/14/2024 11:00:20 9.1 8.4-10.2 ( mg/dL) Final Performing Location LABORATORY [facility] 57[address] 0 - [address] [place] [address]
--- OUTSIDE RECORDS SUMMARY | 2024-07-03 13:10 | External Medical Summary ---
Author Name Unknown Address Unknown Organization [id number]:[facility]ORY [place] [address] - [address] [place] [address] Laboratory Report Ordering Provider Test Date Status RIYA RODRIGUEZ 06/08/2024 13:48:57 Final Warfarin Therapy
INR: 2 .0-3.0 conventional anticoagulation
INR: 2.5- 3.5 high intensity anticoagulation Observation Date Value Abnormality Reference (Units ) Status PT 06/08/2024 13:48:57 15.1 11.6-15.2 (seconds) Final INR 06/08/2024 13:48:57 1.2 0.8-1.2 Final Performing Location LABORATORY [place] 57-[address] 0 - [address] [place] [address]
--- OUTSIDE RECORDS SUMMARY | 2024-07-03 13:10 | External Medical Summary ---
Author Name Unknown Address Unknown Organization K0G:LAB[facility]ATORY [place] [address] - [address] [place] [address] Laboratory Report Ordering Provider Test Date Status ALFREDO CARRERA 06/14/2024 11:00:20 Final Observation Date Value Abnormality Reference (Units ) Status SYNC LEUKOCYTES IN BLOOD BY AUTOMATED COUNT 06/14/2024 11:00:20 2.94 Below low normal 4.00-10.80 (K/uL) Final Segs 06/14/2024 11:00:20 66.7 40.0-75.0 (%) Final Lymphs % 06/14/2024 11:00:20 22.1 18.0-42.0 (%) Final Monos 06/14/2024 11:00:20 10.2 1.0-11.0 (%) Final Eosinophils 06/14/2024 11:00:20 1.0 0.0-6.0 (%) Final Basos 06/14/2024 11:00:20 0.0 0.0-2.0 (%) Final Absolute Segs 06/14/2024 11:00:20 1.96 1.80-7.70 (K/uL) Final Lymphs, absolute 06/14/2024 11:00:20 0.65 Below low normal 1.00-4.80 (K/ul) Final Monos, Abs 06/14/2024 11:00:20 0.30 0.00-1.10 (K/uL) Final Eos, Abs 06/14/2024 11:00:20 0.03 0.00-0.70 (K/uL) Final Basos, Abs 06/14/2024 11:00:20 0.00 0.00-0.20 (K/uL) Final Performing Location [facility] 0 - [address] [place] [address]
--- OUTSIDE RECORDS SUMMARY | 2024-07-03 13:10 | External Medical Summary ---
Author Name Unknown Address Unknown Organization K01:[facility] [place] [address] [place] [address] Laboratory Report Ordering Provider Test Date Status RODNEY RENAE 06/08/2024 13:48:57 Final Deficient: <20 ng/mL
Ins ufficient: 20-29 ng/mL
Recommended/Optimum:30-50 ng/mL

Vitamin D intoxication is rare. If suspicious of Vitamin D toxicity, evaluation of serum Calcium and PTH is recommended. Observation Date Value Abnormality Reference (Units ) Status 25-OH Vitamin D total 06/08/2024 13:48:57 40 >19 (ng/mL) Final Performing Location [facility] [place] [address] [place] [address]
--- OUTSIDE RECORDS SUMMARY | 2024-07-03 13:10 | External Medical Summary | Summary of Care ---
Author Name Unknown Organization [facility] Address [address] [place] [address] Phone [phone] Care Team Providers Care Office Supervisor Name Role Phone Ruth Brandon MD Primary Care Provider + Reason for Visit * Reason Onset Date Comments Advice 06/15/2024 Dr. Ruth norris Encounter Details Date Type Department Care Team (Late st Contact Info) Description 06/15/2024 Telephone General Internal Medicine [facility] [address] [place] [address] Ruth Brandon MD [address] [place] [phone] Advice (Dr. Ruth Brandon ) Allergies Active [...] aorta 06/23/2023 Atherosclerosis of coronary artery of [place] heart without angina pectoris 06/23/2023 Atrial thrombus [...] HX OF BREAST MALIGNANCY - ri ght, [id number], 200702/26/2011 10/04/2013 Polyneuropathy in other dise ases [...] mRNA, LNP-s, No Pre serve, 2-Dose Series ([email or web address]) 07/19/2021,11/06/2020,10/11/2020 COVID-19, LNP-s, No Preserve , Sony-sucrose, Ages 12+ (Pfizer) 12/27/2021 COVID-19, MRNA-LNP, 23-24, P F, 30 MCG/0.3 mL, 12 YRS AND ABOVE, IM ([employer]) 07/13/2023 COVID-19, MRNA-LNP, 24-25, P R, 30MCG/0.3ML, IM, 12YRS AND ABOVE ([email or web address]-Michael B. White EnterprisesirnatMojoPages) 04/28/2024 Covid-19, Mrna, Lnp-s, Pf, B ivalent, 30 Mcg, IM, 12 yrs and above ([email or web address].com) 07/17/2022 Pneumococcal Conjugate Vacc, 13 Valent (Prevnar) [...] encounter Miscellaneous Notes * Telephone Encounter - Diana Dwyer OSA - 06/15/2024 11:15 AM EDT Eduarda called to inquire about postponing her 06/20 infusion for 2-[address] Gonsalez her cardiologistwants to put her on Eliquis and she had lab work completed for him yesterday and he would prefer she waits 2-3 weeks to have this infusion. Please contact Eduarda at [phone]. Thank you. documented in this encounter Plan of Treatment Upcoming Encounters Date Type Department Care Team (Latest Contact Info) Description 06/15/2024 5:10 PM EDT [facility], [facility] [address] [place] [address] [facility] [address] [place] [address] Atrial thrombus*; Thrombus due to any device, implant or graft, initial encounter 06/20/2024 1:30 PM EST Hem/Onc Treatment Hematology/Oncology Treatment, [address] [phone] Christin, Chair 8 Hem Onc [address] [address] 08/02/2024 10:20 AM EST Office Visit Podiatry [facility] [address] [place] [address] Nicki Gomez DPM 132 [place] [address] 10/03/2024 3:00 PM EST Office Visit Cardiology, [facility] [address] [place] [address] Rashmi Graham PA-C [address] [place] [address] 10/04/2024 3:00 PM EST Office Visit General Internal Medicine [facility] 200 [facility] [place] [address] Ruth Brandon MD 200 [facility] [place], [place] [address] 11/22/2024 2:00 PM EDT Office Visit Cardiology, [facility] [address] [place] [address] Rashmi Graham PA-C [address] [place] [address] 04/28/2025 1:40 PM EDT Office Visit Rheumatology [place] [address] [place] [address] Sergio Coughlin MD [address] [place] [address] Scheduled Procedures Name Priority Associated Diagnoses Date/Ti [...] D LEVEL ONCE IN A LIFETIME-USE SMARTSET# [id number] Completed 06/08/2024, 04/20/2024, 02/10/2023, Additional history exists [...] this encounter Medical Devices Implanted Type Area Police Pilot Device Identifier Shelf Expiration Date Model / Serial / Lot Port 6fr Chronoflex [id number] - [id number] Implanted:Qty: 1 on 02/22/2008 at [place] [facility] [place]: Chest CR BARD : ACCESS SYSTEMS [id number] / / [id number] documented as of this encounter Advance Directives Documents on File Type Date Recorded 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
--- OUTSIDE RECORDS SUMMARY | 2024-07-03 13:10 | External Medical Summary | Summary of Care ---
Author Name Unknown Organization [facility] Address [address] [place] [address] Phone [phone] Care Team Providers Care Reading Instructor Name Role Phone Ruth Brandon MD Primary Care Provider + Reason for Visit * Reason Onset Date Comments Advice 06/15/2024 Dr. Ruth norris Encounter Details Date Type Department Care Team (Late st Contact Info) Description 06/15/2024 Telephone General Internal Medicine [facility] [address] [place] [address] Ruth Brandon MD [address] [place] [phone] Advice (Dr. Ruth Brandon ) Allergies Active [...] aorta 06/23/2023 Atherosclerosis of coronary artery of [place] heart without angina pectoris 06/23/2023 Atrial thrombus [...] HX OF BREAST MALIGNANCY - ri ght, [id number], 200702/26/2011 10/04/2013 Polyneuropathy in other dise ases [...] mRNA, LNP-s, No Pre serve, 2-Dose Series (Greendizer) 07/19/2021,11/06/2020,10/11/2020 COVID-19, LNP-s, No Preserve , Sony-sucrose, Ages 12+ (Pfizer) 12/27/2021 COVID-19, MRNA-LNP, 23-24, P F, 30 MCG/0.3 mL, 12 YRS AND ABOVE, IM ([employer] Service[employer]asmia Pharmaceutical) 07/13/2023 COVID-19, MRNA-LNP, 24-25, P R, 30MCG/0.3ML, IM, 12YRS AND ABOVE (Greendizer-Vodio LabsirnatClavis Technology) 04/28/2024 Covid-19, Mrna, Lnp-s, Pf, B ivalent, 30 Mcg, IM, 12 yrs and above (Greendizer) 07/17/2022 Influenza, Whole Virus 09/15/1985 Pneumococcal Conjugate [...] or do you have serious difficulty hearing? Yes-MASHPEE, B/L hearing aids 05/23/2024 Are you blind [...] Miscellaneous Notes * Telephone Encounter - Louis Rodas RN [...] have this infusion. Please contact Eduarda at [phone]. Thank you. documented in this encounter Plan of Treatment Upcoming Encounters Date Type Department Care Team (Latest Contact Info) Description 06/15/2024 5:10 PM EDT Anticoagulation Pharmacy, [facility] [address] [place] [address] [facility] [address] [address] Atrial thrombus*; Thrombus due to any device, implant or graft, initial encounter 06/20/2024 1:30 PM EST Hem/Onc Treatment Hematology/Oncology Treatment, [place] [address] [place] [phone] Christin, Chair 8 Hem Onc [address] [place] [address] 08/02/2024 10:20 AM EST Office Visit Podiatry [facility] [address] [place] [address] Patricia Nicki Mariola, DPM [address] [place] [address] 10/03/2024 3:00 PM EST Office Visit Cardiology, [facility] 132 [facility] [place] [address] Rashmi Graham PA-C [address] [place] [address] 10/04/2024 3:00 PM EST Office Visit General Internal Medicine [facility] 200 [facility] [place] [address] Ruth Brandon MD 200 [facility] [place] [address] 11/22/2024 2:00 PM EDT Office Visit Cardiology, [facility] 132 [facility] [place] [address] Rashmi Graham PA-C 132 [facility] [place] [address] 04/28/2025 1:40 PM EDT Office Visit Rheumatology [address] [place] [address] Sergio Coughlin MD [address] [place] [address] [place] [address] Scheduled Procedures Name Priority Associated Diagnoses Date/Ti [...] 05/06/2025 05/06/2022, 110 01/2017 TSH 05/12/2025 05/12/2024, 01/2024, 05/06/2022, Additional [...] D LEVEL ONCE IN A LIFETIME-USE SMARTSET# [id number] Completed 06/08/2024, 04/20/2024, 02/10/2023, Additional history exists [...] this encounter Medical Devices Implanted Type Area Canal Tender Device Identifier Shelf Expiration Date Model / Serial / Lot Port 6fr Chronoflex [id number] - [id number] Implanted:Qty: 1 on 02/22/2008 at [place] [facility] [place] Left: Chest CR BARD : ACCESS SYSTEMS [id number] / / [id number] documented as of this encounter Advance Directives Documents on File Type Date Recorded 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
--- OUTSIDE RECORDS SUMMARY | 2024-07-03 13:10 | External Medical Summary ---
Author Name Unknown Address Unknown Organization K0G:LABORATORY [facility] [address] - [address] [place] [address] Laboratory Report Ordering Provider Test Date Status ALFREDO CARRERA 06/14/2024 11:00:20 Final Observation Date Value Abnormality Reference (Units ) Status Nucleated erythrocytes/100 leukocytes [Ratio] in Blood by Automated count 06/14/2024 11:00:20 Final Performing Location LABORATORY [facility] 57[address] - [address] [place] [address]
--- OUTSIDE RECORDS SUMMARY | 2024-07-03 13:10 | External Medical Summary ---
Author Name Unknown Address Unknown Organization K0G:LABORATORY [facility] [address] [place] [address] Laboratory Report Ordering Provider Test Date Status ALFREDO CARRERA 06/14/2024 11:00:20 Final Observation Date Value Abnormality Reference (Units ) Status WBC, Total 06/14/2024 11:00:20 2.94 Below low normal 4. 00-10.80 (K/uL) Final RBC 06/14/2024 11:00:20 3.65 3.85-5.15 (M/uL) Final Hemoglobin 06/14/2024 11:00:20 11.4 Below low normal 12 .0-15.3 (g/dL) Final HCT 06/14/2024 11:00:20 38.1 36.0-45.2 (%) Final MCV 06/14/2024 11:00:20 104.4 81.5-97.5 (fL) Final MCH 06/14/2024 11:00:20 31.2 27.0-34.0 (pg) Final MCHC 06/14/2024 11:00:20 29.9 32.0-36.0 (g/dL) Final RDW 06/14/2024 11:00:20 20.0 11.5-15.5 (%) Final Platelets 06/14/2024 11:00:20 141 140-400 (K /uL) Final MPV 06/14/2024 11:00:20 9.2 6.6-11.1 ( fL) Final Performing Location LAB[facility]ATORY [facility] [address] [place] [address]
--- OUTSIDE RECORDS SUMMARY | 2024-07-03 13:10 | External Medical Summary | Summary of Care ---
Author Name Unknown Organization [facility] Address [address] [place] [address] Phone [phone] Care Team Providers Care Sewer Pipe Layer Helper Name Role Phone Ruth Brandon MD Primary Care Provider + Reason for Visit * Reason Comments Follow Up Follow up Encounter Details Date Type Department Care Team (Latest Contact Info) Description 06/14/2024 10:00 AM EDT Office Visit Cardiology, [facility] 132 [facility] [place] [address] Ramsey Gonsalez MD 132 [facility] [place] [address] PAF (paroxysmal atrial fibrillation) ([facility])*; Idiopathic cardiomyopathy (HCC); SDH (subdural hematoma) ([facility]) Allergies Active Allergy Reactions Criticality Noted Date [...] aorta 06/23/2023 Atherosclerosis of coronary artery of [place] heart without angina pectoris 06/23/2023 Atrial thrombus [...] HX OF BREAST MALIGNANCY - ri ght, [id number], 200702/26/2011 10/04/2013 Polyneuropathy in other dise ases [...] mRNA, LNP-s, No Pre serve, 2-Dose Series ([employer]) 07/19/2021,11/06/2020,10/11/2020 COVID-19, LNP-s, No Preserve , Sony-sucrose, Ages 12+ (Pfizer) 12/27/2021 COVID-19, MRNA-LNP, 23-24, P F, 30 MCG/0.3 mL, 12 YRS AND ABOVE, IM ([facility] [employer]) 07/13/2023 COVID-19, MRNA-LNP, 24-25, P R, 30MCG/0.3ML, IM, 12YRS AND ABOVE (Fits.me) 04/28/2024 Covid-19, Mrna, Lnp-s, Pf, B ivalent, 30 Mcg, IM, 12 yrs and above ([employer]) 07/17/2022 Pneumococcal Conjugate Vacc, 13 Valent (Prevnar) [...] Sign Reading Time Taken Comments Blood Pressure 126/72 06/14/2024 10:07 AM EDT Pulse 64 06/14/2024 10:07 AM EDT Temperature - - Respiratory Rate 16 06/14/2024 10:07 AM EDT Oxygen Saturation - - Inhaled Oxygen Concentration - - Weight 82.2 kg (181 lb 4.8 oz) 06/14/2024 10:07 AM EDT Height - - Body Mass Index 37.89 06/07/2024 1:43 PM EDT documented in this encounter Functional [...] as of this encounter Progress Notes * Ramsey Gonsalez MD - 06/14/2024 10:00 AM EDT 06/14/2024 Cardiology Follow Up Referring Provider: PCP: RUTH BRANDON[address] [address] [phone] Chief Complaint: Follow-up cardiomyopathy, paroxysmal atrial fibrillation SUBJECTIVE: Eduarda Bond is a 79 year old year old female with ongoing [...] 7. BIV ICD implantation August 2017 at [facility] with balloon angioplasty of the left subclavian vein with vascular surgery to allow lead placement. Generator exchange December 21, 2023, [employer] Jhaveri MP 8. Repeat 2D echocardiogram since [...] pacer defibrillator going ROSA December 21, 2023 12.Subdural hematoma, spontaneous, 05/23/2024 Patient presents today in close clinical follow-up. Sought ER evaluation on May 23, 2024 due to marked bruising with supratherapeutic INR. CTA of the head due to concerns demonstrated small subdural hematoma. Anticoagulation interrupted due to significant anemia. Upper endoscopy performed prior to diagnosisof subdural hematoma with cauterization of possible bleeding source Require transfusion for patient Subdural has gradually resolved. Following with Neurosurgery No arrhythmias Slowly getting stronger at home no dizziness or lightheadedness. No overt bleeding. No dark black stools. Ojbc-hl-utguafej lower extremity edema A Complete Review of Systems is as stated above or negative. Patient Active Problem List Diagnosis Hypothyroidism Mitral valve disorder Restless legs syndrome Decreased hearing Yi esophagus Essential hypertension with goal blood pressure less than 130/80 History of breast cancer Gastroesophageal reflux disease without esophagitis Vitamin D deficiency Idiopathic cardiomyopathy (HCC) Chronic systolic congestive heart failure, NYHA class 2 ([facility]) Degenerative disc disease, cervical Presence of automatic cardioverter/defibrillator (AICD) 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) Senile osteoporosis Fracture of vertebra due to osteoporosis with routine healing Atrial thrombus Thrombus due to any device, implant or graft, initial encounter Atherosclerosis of aorta (HCC) Atherosclerosis of coronary artery of [place] heart without angina pectoris Chronic atrial fibrillation (HCC) Nonischemic cardiomyopathy (HCC) PAF (paroxysmal atrial fibrillation) ([facility]) Chronic anticoagulation Acute blood loss anemia AVM (arteriovenous malformation) of stomach, acquired with hemorrhage SDH (subdural hematoma) ([facility]) Review of patient's allergies indicates: Allergen Reactions Adhesive Tape Other (Please comment) Welts, blisters Bee Stings Bee Venom Hives Iodine Hives Ivp Dye hives Current Outpatient Medications Medication Sig Dispense Refill VITAMIN B-6 100 MG PO TABS Take 1 Tablet by mouth in the morning. CALCIUM 1250 MG PO TABS Take 1 Tablet by mouth in the morning. 1200mg. VITAMIN D 2000 UNITS PO CAPS Take 1,000 Units by mouth in the morning. acetaminophen (TYLENOL) 500 MG Tablet Take 1 [...] DAY IN THE MORNING 90 Tablet 3 Metoprolol Succinate ER 25 MG Oral Tablet [...] mouth in the morning. 50 Tablet 3 Pantoprazole Sodium 40 MG Oral Tablet Delayed Release (Protonix) Take 1 Tablet by mouth in the morning and 1 Tablet before bedtime. 60 Tablet 0 traZODone HCl 50 MG Oral Tablet (Desyrel) Take 1 Tablet by mouth at bedtime. 30 Tablet 3 Apixaban 5 MG Oral Tablet (Eliquis) Take 1 Tablet by mouth in the morning and 1 Tablet before bedtime. 180 Tablet 3 No current facility-administered medications for this visit. OBJECTIVE/PHYSICAL EXAMINATION: BP 126/72 | Pulse 64 | Resp 16 | Wt 82.2 kg (181 lb 4.8 oz) | BMI 37.89 kg/m | BSA 1.83 m General: Age appropriate female in no acute distress Head: normocephalic, no [...] no joint inflammation, no deforming arthritis Extremities: 2+ edema, no cyanosis, pulses intact 2+/4 Neuro: grossly normal exam Skin: Superficial ecchymosis left forearm Data: EKG performed today, 05/12/2024 , and [...] mg/dL LDL Cholesterol 50 <=129 mg/dL Echocardiogram May 23, 2024 The qualitative LV ejection fraction is 55 dash 60 The LV wall thickness is normal. The left ventricular wall motion is normal. With pacemaker activation The left ventricular diastolic function is moderately abnormal (grade II). Mild mitral regurgitation is present. Mild tricuspid regurgitation is present. The estimated pulmonary artery systolic pressure is 40-45mm Hg. No right atrial thrombus observed ASSESSMENT: 79 year old year old female With ongoing concerns as listed below PLAN: 1. Nonischemic cardiomyopathy with compensated chronic systolic and diastolic heart failure on appropriate therapies 2. Biventricular pacer defibrillator status post generator exchange December 2023. Patient to follow with device Clinic 3. Paroxysmal atrial fibrillation: 4. Subdural hematoma, GI bleed in setting of supratherapeutic INR Exam today demonstrates mild volume overload. Will give additional dose of furosemide , 2 tablets tomorrow. Then to resume usual dose BMP and CBC today Discussed indications for anticoagulation. Given marked lability to INRs multifactorial, resolve ofatrial thrombus will initiate anticoagulation in 2 weeks with Eliquis 5 mg twice per day. Neurosurgery agreeable Discussed fall avoidance Continue device follow-up through device Clinic, reduced dose amiodarone 100 mg per day DISPOSITION: Return 3 months Ramsey Gonsalez MD [facility] [address] [facility] [address] documented in this encounter Nursing Notes * Angela Guzman CMA - 06/14/2024 10:00 AM EDT Examination Room: 14 Name: Eduarda Bond Date of : (1945). Reason for Visit: follow-up Interim Hospitalization(s): Denies Problems/Concerns: Reports walking has gotten better, saw Tabitha recently and says hematoma size has decreased Chest Pain/SOB: Denies SOB and chest pain [facility] Discussed: Yes [facility] is a way you can [...] comprehension of instructions. documented in this encounter Plan of Treatment Upcoming Encounters Date Type Department Care Team (Late st Contact Info) Description 06/15/2024 5:10 PM EDT Anticoagulation Pharmacy, [facility] [address] [place] [address] [place] [facility] [address] [place] [address] 06/20/2024 1:30 PM EST Hem/Onc Treatment Hematology/Oncology Treatment, [place] [address] [place] [phone] Christin, Chair 8 Hem Onc Scenery [address] [place] [address] 08/02/2024 10:20 AM EST Office Visit [facility] [place] [address] [place] [address] Nicki Gomez DPM [address] [place] [address] 10/03/2024 3:00 PM EST Office Visit Cardiology, [facility] [address] [place] [address] Rashmi Graham PA-C [address] [place] [address] 10/04/2024 3:00 PM EST Office Visit General Internal Medicine [facility] 200 [facility] [place] [address] Ruth Brandon MD 200 [facility] [place] [address] 11/22/2024 2:00 PM EDT Office Visit Cardiology, [facility] [address] [place] [address] Rashmi Graham, KATHARINE [address] [place] [address] 04/28/2025 1:40 PM EDT Office Visit Rheumatology [address] [place], [place] [address] Sergio Coughlin MD [address] [place] [address] [place], [place] [address] Pending Results Name Type Priority Associated Diagnoses Date /Time CBC WITH WBC DIFFERENTIAL Lab Routine Idiopathic cardiomyopathy (HCC) SDH (subdural hematoma) (HCC) PAF (paroxysmal atrial fibrillation) (HCC) 06/14/2024 11:00 AM EDT BASIC METABOLIC PANEL Lab Routine Idiopathic cardiomyopathy (HCC) SDH (subdural hematoma) (HCC) PAF (paroxysmal atrial fibrillation) (HCC) 06/14/2024 11:00 AM EDT Scheduled Orders Name Type Priority Associated Diagnoses Orde r Schedule CBC WITH WBC DIFFERENTIAL Lab Routine Idiopathic cardiomyopathy (HCC) SDH (subdural hematoma) (HCC) PAF (paroxysmal atrial fibrillation) (HCC) Expected: 06/14/2024, Expires: 06/14/2025 BASIC METABOLIC PANEL Lab Routine Idiopathic cardiomyopathy (HCC) SDH (subdural hematoma) (HCC) PAF (paroxysmal atrial fibrillation) (HCC) Expected: 06/14/2024, Expires: 06/14/2025 Scheduled Procedures Name Priority Associated Diagnoses Date/Ti [...] Ratio 05/06/2025 05/06/2022, 1101/2017 TSH 05/12/2025 05/12/2024, 020 01/2024, 05/06/2022, Additional history exists GFR 06/08/2025 [...] D LEVEL ONCE IN A LIFETIME-USE SMARTSET# [id number] Completed 06/08/2024, 04/20/2024, 02/10/2023, Additional history exists [...] this encounter Medical Devices Implanted Type Area Cnc Service Technician Device Identifier Shelf Expiration Date Model / Serial / Lot Port 6fr Chronoflex [id number] - [id number] Implanted:Qty: 1 on 02/22/2008 at OR [facility] Left: Chest CR BARD : [employer]ESS SYSTEM[employer] [id number] / / [id number] documented as of this encounter Visit Diagnoses Diagnosis PAF (paroxysmal atrial fibrillation) (HCC)- Primary Atrial fibrillation Idiopathic cardiomyopathy (HCC) Other primary cardiomyopathies SDH (subdural hematoma) (HCC) Subdural hemorrhage Atrial thrombus- Primary Other ill-defined heart disease Thrombus due to any device, implant or graft, initial encounter documented in this encounter Advance Directives Documents on File Type Date Recorded 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
--- OUTSIDE RECORDS SUMMARY | 2024-07-03 13:10 | External Medical Summary ---
Author Name Unknown Address Unknown Organization K0G:LABORATORY [place] [address] [place] [address] Laboratory Report Ordering Provider Test Date Status RODNEY RENAE 06/08/2024 13:48:57 Final Observation Date Value Abnormality Reference (Units ) Status Creatinine 06/08/2024 13:48:57 1.0 0.5-1.0 (mg/dL) Final Glomerular filtration rate/1.73 sq M.predicted [Volume Rate/Area] in Serum, Plasma or Blood by Creatinine-based formula (CKD-EPI) 06/08/2024 13:48:57 54 Below low normal >=60 (mL/min) Final eGFR is calculated based on the CKD-EPI 2020 equation. Performing Location LABORATORY [facility] [address] [place] [address]
--- OUTSIDE RECORDS SUMMARY | 2024-07-03 13:10 | External Medical Summary ---
Author Name Unknown Address Unknown Organization [facility] [address] [place] [address] Laboratory Report Ordering Provider Test Date Status RODNEY RENAE 06/08/2024 13:48:57 Final Observation Date Value Abnormality Reference (Units ) Status Calcium 06/08/2024 13:48:57 9.2 8.4-10.2 ( mg/dL) Final Performing Location LAB[facility]ATORY [facility] [address] [place] [address]
--- OUTSIDE RECORDS SUMMARY | 2024-07-03 13:10 | External Medical Summary | Summary of Care ---
Author Name Unknown Organization [facility] Address [address] [place] [address] Phone [phone] Care Team Providers Care Plumbing And Heating Mechanic Name Role Phone Ruth Brandon MD Primary Care Provider + Reason for Visit * Reason Onset Date Comments Medication Question 05/27/2024 Encounter Details Date Type Department Care Team (Late st Contact Info) Description 05/27/2024 [address] [address] Tete Guerrero, [facility] [address] Medication Question Allergies Active Allergy Reactions Criticality Noted Date Comments Adhesive Tape Other (Please comment) 01/24/2008 Welts, blisters Bee Stings 02/14/2003 Bee Venom Hives 10/17/2019 Iodine Hives 10/17/2019 Ivp Dye 01/10/1998 hives documented as of this encounter (statuses as of 06/10/2024) Medications Medication Sig Dispensed Refills Start Date [...] Tablet before bedtime. 60 Tablet 05/24/2024 Active levETIRAcetam 500 MG Oral Tablet (Keppra) Take 1 Tablet by mouth in the morning and 1 Tablet before bedtime. Do all this for 13 days. 26 Tablet 05/24/2024 documented as of this encounter (statuses as of 06/10/2024) Active Problems Problem Noted Date Diagnosed Date [...] as of this encounter (statuses as of 06/10/2024) Resolved Problems Problem Noted Date Diagnosed Date [...] HX OF BREAST MALIGNANCY - ri ght, [id number], 200702/26/2011 10/04/2013 Polyneuropathy in other dise ases [...] as of this encounter (statuses as of 06/10/2024) Immunizations Name Administration Dates Next Due COVID-19 mRNA, LNP-s, No Pre serve, 2-Dose Series ([employer]) 07/19/2021,11/06/2020,10/11/2020 COVID-19, LNP-s, No Preserve , Sony-sucrose, Ages 12+ (Pfizer) 12/27/2021 COVID-19, MRNA-LNP, 23-24, P F, 30 MCG/0.3 mL, 12 YRS AND ABOVE, IM ([facility]) 07/13/2023 COVID-19, MRNA-LNP, 24-25, P R, 30MCG/0.3ML, IM, 12YRS AND ABOVE ([facility]) 04/28/2024 Covid-19, Mrna, Lnp-s, Pf, B ivalent, [...] encounter Miscellaneous Notes * Telephone Encounter - Rashmi Graham PA-C - 05/27/2024 11:33 AM EDT Notes reviewed from Dr. Neri upon day of discharge. Looking head, future considerations include transitioning to low-dose Eliquis 2.5 mg twice daily, but would recommend getting neurology and neurosurgery input with regards to timing of resuming it for up after a 4-week interval off of anticoagulation/antiplatelet therapy with some kind of plan for surveillance imaging in the interim. So given significantly elevated INR on admission, she may benefit from future Eliquis rather than coumadin. At this point, would wait until she has neurosurgery follow up and repeat imaging before anything is decided * Telephone Encounter - Tete Guerrero RPh - 05/27/2024 9:51 AM EDT Kathy, Just following up after areli's hospitalization for SDH. Warfarin appears to be held and not continued upon discharge. Double checking patient can be discharged from warfarin clinic with no plans to restart? Thank you, Tete Guerrero, Pharm D, BCACP Clinical Pharmacist 05/27/2024, 9:52 AM documented in this encounter Plan of Treatment Upcoming Encounters Date Type Department Care Team (Late st Contact Info) Description 06/14/2024 10:00 AM EDT Office Visit Cardiology, [facility] 132 [place] [address] Ramsey Gonsalez MD 132 [place] [address] 06/15/2024 5:10 PM EDT Anticoagulation Pharmacy, [facility] 132 [place] [address] [facility] [place] [address] [place] [address] 06/20/2024 1:30 PM EST Hem/Onc Treatment Hematology/Oncology Treatment, [place] [address] [place] [phone] Christin, Chair 8 Hem Onc [facility] 200 [facility] [place] [address] 08/02/2024 10:20 AM EST Office [facility]ry [facility] [place] [address] Nicki Gomez DPM [address] [place] [address] 10/03/2024 3:00 PM EST Office Visit Cardiology, [facility] [place] [address] Rashmi Graham PA-C [address] [place] [address] 10/04/2024 3:00 PM EST Office Visit General Internal Medicine [facility] 200 [facility] [place] [address] Ruth Brandon MD 200 [facility] [place] [address] 11/22/2024 2:00 PM EDT Office Visit Cardiology, [facility] [place] [address] Rashmi Graham PA-C [address] [place] [address] 04/28/2025 1:40 PM EDT Office Visit Rheumatology [address] [place] [address] Sergio Coughlin MD [address] [place] [address] [place] [address] Scheduled Procedures Name Priority Associated Diagnoses Date/Ti [...] 0 01/2024, 05/06/2022, Additional history exists GFR 06/08/2025 06/08/2024, 0 03/2024, 05/23/2024, Additional history exists DTap/Tdap Vaccines (3 - Td or Tdap) 04/29/2026 04/29/2016, 03/02/2006 Pneumococcal Vaccine: 65+ Years Completed 04/04/2015, 09/28/2012, 10/28/2006 Zoster Vaccines Completed 01/15/2019, 0 02/2018, 04/02/2011 COVID-19 Vaccine Completed 04/28/2024, , 07/17/2022, Additional history exists Influenza Vaccine (FLU shot) Completed 07/2024, 04/28/2024, 05/14/2023, Additional history exists VITAMIN D LEVEL ONCE IN A LIFETIME-USE SMARTSET# [id number] Completed 06/08/2024, 04/20/2024, 02/10/2023, Additional history exists [...] this encounter Medical Devices Implanted Type Area Community Marketing Coordinator Device Identifier Shelf Expiration Date Model / Serial / Lot Port 6fr Chronoflex [id number] - [id number] Implanted:Qty: 1 on 02/22/2008 at [facility] Left: Chest CR BARD : [employer] [id number] / / [id number] documented as of this encounter Advance Directives Documents on File Type Date Recorded 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
--- OUTSIDE RECORDS SUMMARY | 2024-07-03 13:11 | External Medical Summary | Summary of Care ---
Author Name Unknown Organization [facility] Address [address] [place] [address] Phone [phone] Care Team Providers Care Structures Technician Name Role Phone Ruth Brandon MD Primary Care Provider + Reason for Visit * Reason Onset Date Comments Appointment 05/23/2024 O[place]te[place]a Encounter Details Date Type Department Care Team (Late st Contact Info) Description 05/23/2024 Telephone Hematology/Oncology [facility] [place] [address] [facility] [place] [address] Oc Stevens MD [address] [facility] [place] [address] Appointment ([place]) Allergies Active Allergy Reactions Criticality Noted Date Comments Adhesive Tape Other (Please comment) 01/24/2008 Welts, blisters Bee Stings 02/14/2003 Bee Venom Hives 10/17/2019 Iodine Hives 10/17/2019 Ivp Dye 01/10/1998 hives documented as of this encounter (statuses as of 06/06/2024) Medications Medication Sig Dispensed Refills Start Date [...] DAY 200 Tablet 3 3 024 Active Rosuvastatin Calcium 10 MG Oral Tablet (Crestor)Indicatio ns: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 50 Tablet 3 4 Active ASPIRIN 81 MG PO TABS Take 1 Tablet by mouth in the morning. 024 Discontinued albuterol (VENTOLIN HFA) 108 (90 BASE) MCG/ACT inhalerIndications :Acute bronchitis, antibiotics not indicated Inhale 2 Puffs by mouth every 6 hours as needed for Wheezing. 3 Inhaler 1 8 024 Discontinued(Mt dication List Clean Up) Pantoprazole Sodium 40 MG Oral Tablet Delayed Release (Protonix) TAKE ONE TABLET BY MOUTH EVERY DAY 100 Tablet 2 4 024 Discontinued Cefuroxime Axetil 500 MG Oral Tablet (Ceftin)Indication s:Acute non-recurrent frontal sinusitis Take 1 Tablet by mouth in the morning and 1 Tablet before bedtime. Do all this for 10 days. 20 Tablet 4 Discontinued documented as of this encounter (statuses as of 06/06/2024) Active Problems Problem Noted Date Diagnosed Date [...] as of this encounter (statuses as of 06/06/2024) Resolved Problems Problem Noted Date Diagnosed Date [...] HX OF BREAST MALIGNANCY - ri ght, [id number], 200702/26/2011 10/04/2013 Polyneuropathy in other dise ases [...] as of this encounter (statuses as of 06/06/2024) Immunizations Name Administration Dates Next Due COVID-19 mRNA, LNP-s, No Pre serve, 2-Dose Series ([employer]) 07/19/2021,11/06/2020,10/11/2020 COVID-19, LNP-s, No Preserve , Sony-sucrose, Ages 12+ ([employer]) 12/27/2021 COVID-19, MRNA-LNP, 23-24, P F, 30 MCG/0.3 mL, 12 YRS AND ABOVE, IM ([employer]) 07/13/2023 COVID-19, MRNA-LNP, 24-25, P R, 30MCG/0.3ML, IM, 12YRS AND ABOVE ([employer]) 04/28/2024 Covid-19, Mrna, Lnp-s, Pf, B ivalent, 30 Mcg, IM, 12 yrs and above ([employer]) 07/17/2022 Influenza, Whole Virus 09/15/1985 Pneumococcal Conjugate [...] encounter Miscellaneous Notes * Telephone Encounter - Natacha Quesada LPN - 06/06/2024 1:41 PM EDT Pt aware and verbalized understanding * Addendum Note - Oc Stevens MD - 05/25/2024 12:50 PM EDTAddended by: OC STEVENS on: 05/25/2024 12:50 PM Modules accepted: Orders * Telephone Encounter - Oc Stevens MD - 05/25/2024 12:49 PM EDT Would need updated labs prior to reclast. Can get at the end of May. I placed the lab orders Please call patient or and let them know * Telephone Encounter - Louis Rodas RN - 05/23/2024 10:52 AM EDT Noted, beacon updated. * Telephone Encounter - Cait Schwartz OSA - 05/23/2024 10:16 AM EDT Moved apt to 06/20 left message PENDING SALE TO [facility] nursing * Telephone Encounter - Swati Stock OSA - 05/23/2024 8:04 AM EDT Spouse Trace is calling, patient is currently admitted to [facility] so her reclast appt today needs armaan cancelled and rescheduled. He states she would like to push it back to June. He said any dayin June works except not June 17. Please call him back to reschedule. He said it is ok to leave a detailed message on home answering machine with new appt info documented in this encounter Plan of Treatment Upcoming Encounters Date Type Department Care Team (Late st Contact Info) Description 06/07/2024 2:00 PM EDT Office Visit Neurosurgery, [place] [address] [place] [address] Jaswinder Kahn MD, PhD [address] [place] [address] 06/09/2024 5:10 PM EDT Anticoagulation Pharmacy, [facility] [address] [facility] [place] [address] [facility] [place] [address] 06/20/2024 1:30 PM EST Hem/Onc Treatment Hematology/Oncology Treatment, [place] [facility] [address] Christin, Chair 8 Hem Onc [address] [place] [address] 08/02/2024 10:20 AM EST Office Visit Podiatry [facility] [place] [address] Nicki Gomez [facility] [address] [place] [address] 10/03/2024 3:00 PM EST Office Visit Cardiology, [facility] 132 [facility] [place] [address] Rashmi Graham PA-C [address] [facility] [place] [address] 10/04/2024 3:00 PM EST Office Visit General Internal Medicine [address] [place] [address] Ruth Brandon MD 200 [facility] [place] [address] 11/22/2024 2:00 PM EDT Office Visit Cardiology, [facility] 132 [facility] [place] [address] Rashmi Graham PA-C [address] [place] [address] 04/28/2025 1:40 PM EDT Office Visit Rheumatology [place] [address] [facility] [place] [address] Oc Stevens MD [facility] [place] [address] Scheduled Orders Name Type Priority Associated Diagnoses Orde r Schedule CREATININE Lab Routine Senile osteoporosis Expected: 05/25/2024, Expires: 05/25/2025 CALCIUM Lab Routine Senile osteoporosis Expected: 05/25/2024, Expires: 05/25/2025 25-HYDROXY VITAMIN D Lab Routine Senile osteoporosis Expected: 05/25/2024, Expires: 05/25/2025 Scheduled Procedures Name Priority Associated Diagnoses Date/Ti [...] D LEVEL ONCE IN A LIFETIME-USE SMARTSET# 55465 Completed 04/20/2024, 02/10/2023, 03/18/2021, Additional history exists [...] this encounter Medical Devices Implanted Type Area Yard Rigger Device Identifier Shelf Expiration Date Model / Serial / Lot Port 6fr Chronoflex [id number] - [id number] Implanted:Qty: 1 on 02/22/[address] [facility] Left: Chest CR BARD : ACCESS SYSTEMS [id number] / / [id number] documented as of this encounter Visit Diagnoses Diagnosis Senile osteoporosis- Primary documented in this encounter Advance Directives Documents on File Type Date Recorded Patient Import Dispatcher Expl anation Advance Directives and Living Will [...] 1:06 PM 01/16/2008 7:05 PM Care Teams Structures Technician Relationship Specialty Start Date End Date Ruth Brandon MD 200 [facility] [place] [address] PCP - General Internal Medicine 04/25/21 documented as of this encounter
--- OUTSIDE RECORDS SUMMARY | 2024-07-03 13:11 | External Medical Summary | Summary of Care ---
Author Name Unknown Organization [facility] Address [address] [place] [address] Phone [phone] Care Team Providers Care Supervisor Drawing Name Role Phone Ruth Brandon MD Primary Care Provider + Reason for Visit * Reason Onset Date Comments Advice 05/31/2024 Information sent to Ins? Encounter Details Date Type Department Care Team (Late st Contact Info) Description 05/31/2024 Telephone Cardiology, [facility] 132 [facility] [place] [phone] Ramsey Gonsalez MD 132 [facility] [place] [phone] Advice (Information sent to Ins?) Allergies Active Allergy Reactions Criticality Noted Date [...] the morning. 50 Tablet 3 05/12/2024 Active levETIRAcetam 500 MG Oral Tablet (Keppra) Take 1 Tablet by mouth in the morning and 1 Tablet before bedtime. Do all this for 13 days. 26 Tablet 05/24/2024 Active Pantoprazole Sodium 40 MG Oral Tablet [...] aorta 06/23/2023 Atherosclerosis of coronary artery of [place] heart without angina pectoris 06/23/2023 Atrial thrombus [...] HX OF BREAST MALIGNANCY - ri ght, [id number], 200702/26/2011 10/04/2013 Polyneuropathy in other dise ases [...] mRNA, LNP-s, No Pre serve, 2-Dose Series ([employer]) 07/19/2021,11/06/2020,10/11/2020 COVID-19, LNP-s, No Preserve , Sony-sucrose, Ages 12+ (Pfizer) 12/27/2021 COVID-19, MRNA-LNP, 23-24, P F, 30 MCG/0.3 mL, 12 YRS AND ABOVE, IM ([employer] [facility]) 07/13/2023 COVID-19, MRNA-LNP, 24-25, P R, 30MCG/0.3ML, IM, 12YRS AND ABOVE ([facility]) 04/28/2024 Covid-19, Mrna, Lnp-s, Pf, B ivalent, 30 Mcg, IM, 12 yrs and above ([employer]) 07/17/2022 Pneumococcal Conjugate Vacc, 13 Valent (Prevnar) [...] encounter Miscellaneous Notes * Telephone Encounter - Ramsey Gonsalez MD - 06/06/2024 2:51 PM EDT I would be willing to see 06/14 * Telephone Encounter - Shonna Hamlin RN - 06/01/2024 10:[address] Gonsalez, please advise. Would you be willing to see patient on image week 06/14 or 06/17? * Telephone Encounter - Belem Stanley CRNP - 06/01/2024 5:12 AM EDT Insurance/ambulance concern is already addressed by Dr. Espinoza. She has stated that patient will need a close follow up appt specifically with Dr. Gonsalez. I am reviewing this as coverage for Dr. Gonsalez being out of the office this week. Can we please find her a close in return visit with Dr. Gonsalez within the next month? Looping in Louis and Shonna. Belem Bray * Telephone Encounter - Jose Bradford LPN - 05/31/2024 2:34 PM EDT Called and spoke to patients and informed. Paramjit verbalized understanding. * Telephone Encounter - Kamryn Espinoza DO - 05/31/2024 2:12 PM EDT In review of the [facility] Discharge summary the case was discussed multiple times on 05/22 and 05/23 due to spontaneous intracranial and subdural hemorrhages in the setting of persistent elevated INR and GIB. The last conversation on 05/23/24 with neurosurgery pt was recommended by neurosurgery at [facility] to be transferred due to pt needing neurosurgical evaluation in person and this was not able to be given at [facility]. Therefore, the pt needed higher level of medical care and the transfer ambulance ride should be covered by insurance. Should the patient receive any notice of this not getting covered-recommend contacting the insurance company. Can you please let pt's and her know And pt should be seen in our office due to hospital discharge with Dr. Gonsalez please-Dr. Gonsalez is there anyway you can fit her in somewhere. Thank you Kamryn Espinoza DO Department of Cardiology [facility] [place] [address] * Telephone Encounter - Jojo Woodward OSA - 05/31/2024 11:45 AM EDT Person calling: Paramjit Relationship to patient: Number to return call: [phone] Reason for call (brief): Ambulance authorized by Pharmacy: N/A Provider Name: Wallace / Alexis / Daron Detailed message to office: (Paramjit) is calling to see if the information was sent to the insurance re:the ambulence ride from [facility] to [place]. Supposedly the 3 Dr's put their heads together & said she needed to be transported to [place]. The Dr just has to fill out a form saying this was medically necessary so that Insurance will pay for the ambulance bill. just needed to know that the information was sent to the [facility] [employer]. Please call back to advise thank you. Outcome: TE documented in this encounter Plan of Treatment Upcoming Encounters Date Type Department Care Team (Late st Contact Info) Description 06/07/2024 2:00 PM EDT [facility] [address] [facility] [place] [address] Jaswinder Kahn MD, PhD [address] [place] [address] 06/09/2024 5:10 PM EDT Anticoagulation Pharmacy, [facility] [address] [place] [address] [facility] [address] 06/20/2024 1:30 PM EST Hem/Onc Treatment Hematology/Oncology Treatment, [place] [address] [facility] [address] [facility] [facility] [address] [place], [place] [phone] Christin, Chair 8 Hem Onc [address] [address] 08/02/2024 10:20 AM EST Office Visit Podiatry [facility] [address] [place] [address] Nicki Gomez [facility] [address] [facility] [place] [address] 10/03/2024 3:00 PM EST Office Visit Cardiology, [facility] [place] [address] Rashmi Graham PA-C [address] [place] [address] 10/04/2024 3:00 PM EST Office Visit General Internal Medicine [facility] [address] [facility] [place], [place] [address] Ruth Brandon MD 200 [facility], [place] [address] 11/22/2024 2:00 PM EDT Office Visit Cardiology, [facility] [address] [facility] [place] [address] Rashmi Graham PA-C [address] [place] [address] 04/28/2025 1:40 PM EDT Office Visit Rheumatology [facility] [address] [place] [address] Sergio Coughlin MD [address] [place] [address] Scheduled Procedures Name Priority Associated Diagnoses Date/Ti [...] D LEVEL ONCE IN A LIFETIME-USE SMARTSET# 89046 Completed 04/20/2024, 02/10/2023, 03/18/2021, Additional history exists [...] this encounter Medical Devices Implanted Type Area Rod Buster Device Identifier Shelf Expiration Date Model / Serial / Lot Port 6fr Chronoflex [id number] - [id number] Implanted:Qty: 1 on 02/22/2008 at OR [facility] Left: Chest CR BARD : [employer] [id number] / / [id number] documented as of this encounter Advance Directives Documents on File Type Date Recorded Patient Production Operations Inspector Expl anation Advance Directives and Living Will [...] PM 01/16/2008 7:05 PM Care Teams Supervisor Drawing Relationship Specialty Start Date End Date Ruth Brandon MD [address] [facility] [place] [address] PCP - General Internal Medicine 04/25/21 documented as of this encounter
--- OUTSIDE RECORDS SUMMARY | 2024-07-03 13:11 | External Medical Summary | Summary of Care ---
Author Name Unknown Organization [facility] Address [address] [place] [address] Phone [phone] Care Team Providers Care Airplane Pilot Helper Name Role Phone Ruth Brandon MD Primary Care Provider + Reason for Visit * Reason Onset Date Comments Advice 05/31/2024 Information sent to Ins? Encounter Details Date Type Department Care Team (Late st Contact Info) Description 05/31/2024 Telephone Cardiology, [facility] 132 [facility] [place] [phone] Ramsey Gonsalez MD 132 [facility] [place] [phone] Advice (Information sent to Ins?) Allergies Active Allergy Reactions Criticality Noted Date Comments Adhesive Tape Other (Please comment) 01/24/2008 Welts, blisters Bee Stings 02/14/2003 Bee Venom Hives 10/17/2019 Iodine Hives 10/17/2019 Ivp Dye 01/10/1998 hives documented as of this encounter (statuses as of 06/07/2024) Medications Medication Sig Dispensed Refills Start Date [...] as of this encounter (statuses as of 06/07/2024) Active Problems Problem Noted Date Diagnosed Date SDH (subdural hematoma) 05/25/2024 PAF (paroxysmal atrial fibrillation) 05/24/2024 Chronic anticoagulation 05/24/2024 Acute blood loss anemia 05/24/2024 AVM (arteriovenous malformat ion) of stomach, acquired with hemorrhage 05/24/2024 Nonischemic cardiomyopathy 03/17/2024 Chronic atrial fibrillation 12/29/2023 Atherosclerosis of aorta 06/23/2023 Atherosclerosis of coronary artery of [place] heart without angina pectoris 06/23/2023 Atrial thrombus [...] as of this encounter (statuses as of 06/07/2024) Resolved Problems Problem Noted Date Diagnosed Date [...] HX OF BREAST MALIGNANCY - ri ght, [id number], 200702/26/2011 10/04/2013 Polyneuropathy in other dise ases [...] as of this encounter (statuses as of 06/07/2024) Immunizations Name Administration Dates Next Due COVID-19 mRNA, LNP-s, No Pre serve, 2-Dose Series ([employer]) 07/19/2021,11/06/2020,10/11/2020 COVID-19, LNP-s, No Preserve , Sony-sucrose, Ages 12+ (Pfizer) 12/27/2021 COVID-19, MRNA-LNP, 23-24, P F, 30 MCG/0.3 mL, 12 YRS AND ABOVE, IM ([employer] [facility]) 07/13/2023 COVID-19, MRNA-LNP, 24-25, P R, 30MCG/0.3ML, IM, 12YRS AND ABOVE ([facility]) 04/28/2024 Covid-19, Mrna, Lnp-s, Pf, B ivalent, 30 Mcg, IM, 12 yrs and above ([employer]) 07/17/2022 Influenza, Whole Virus 09/15/1985 Pneumococcal Conjugate [...] or do you have serious difficulty hearing? Yes-[employer] [place], B/L hearing aids 05/23/2024 Are you blind [...] Telephone Encounter - Louis Alfaro OSA - 06/07/2024 10:06 AM EDT Called patient she is aware of the date and time, for the FU with Wallace. RETURN CARDIOLOGY at 10:00 AM (30 min)Arrive by 9:45 AM Friday June 14, 2024 Appointment Provider:Ramsey Gonsalez MD in [facility]ARDIOLOGY [facility] * Telephone Encounter - Ramsey Gonsalez MD [...] Gonsalez within the next month? Looping in [place]. Belem Bray * Telephone Encounter - Jose Bradford LPN - 05/31/2024 2:34 PM EDT Called and spoke to patients and informed. Paramjit verbalized understanding. * Telephone Encounter - Kamryn Espinoza DO - 05/31/2024 2:12 PM EDT In review of the [facility] Discharge summary the case was discussed multiple times on 05/22 and 05/23 due to spontaneous intracranial and subdural hemorrhages in the setting of persistent elevated INR and GIB. The last conversation on 05/23/24 with neurosurgery pt was recommended by neurosurgery at [facility] to be transferred due to pt needing neurosurgical evaluation in person and this was not able to be given at [facility]. Therefore, the pt needed higher level of [...] you Kamryn Espinoza DO Department of Cardiology [facility] Cardiology [place] [phone] * Telephone Encounter - Jojo Woodward OSA - 05/31/2024 11:45 AM EDT Person calling: Paramjit Relationship to patient: Number to return call: [phone] Reason for call (brief): Ambulance authorized by Pharmacy: N/A Provider Name: Wallace / Alexis / Daron Detailed message to office: (Paramjit) is calling to see if the information was sent to the insurance re:the ambulence ride from [facility] to [place]. Supposedly the 3 Dr's put their heads together & said she needed to be transported to [place]. The Dr just has to fill out a form saying this was medically necessary so that Insurance will pay for the ambulance bill. just needed to know that the information was sent to the [employer]. Please call back to advise thank you. Outcome: TE documented in this encounter Plan of Treatment Upcoming Encounters Date Type Department Care Team (Late st Contact Info) Description 06/07/2024 2:00 PM EDT Office Visit Neurosurgery, [place] [address] [place] [address] Jaswinder Kahn MD, PhD [address] [place] [address] 06/09/2024 5:10 PM EDT Anticoagulation Pharmacy, [facility] [place] [address] [facility] [address] [facility] [address] 06/14/2024 10:00 AM EDT Office Visit Cardiology, [facility] 132 [facility] [place] [address] Ramsey Gonsalez MD [address] [place] [address] 06/20/2024 1:30 PM EST Hem/Onc Treatment Hematology/Oncology Treatment, [place] [address] [place] [phone] Christin, Chair 8 Hem Onc [place] [address] [place] [address] 08/02/2024 10:20 AM EST Office Visit Podiatry [facility] [place] [address] Nicki Gomez DPM [address] [facility] [place] [address] 10/03/2024 3:00 PM EST Office Visit Cardiology, [facility] [address] [place] [address] Rashmi Graham PA-C [address] [place] [address] 10/04/2024 3:00 PM EST Office Visit General Internal Medicine [facility] 200 [facility] [place] [address] Ruth Brandon MD 200 [facility] [place] [address] 11/22/2024 2:00 PM EDT Office Visit Cardiology, [facility] [place] [address] Rashmi Graham PA-C [address] [place] [address] 04/28/2025 1:40 PM EDT Office Visit Rheumatology [place] [phone] [facility] [place] [address] Sergio Coughlin MD [address] [facility] [place] [address] Scheduled Procedures Name Priority Associated Diagnoses Date/Ti [...] D LEVEL ONCE IN A LIFETIME-USE SMARTSET# [id number] Completed 04/20/2024, 02/10/2023, 03/18/2021, Additional history exists [...] this encounter Medical Devices Implanted Type Area Plate Colorer Device Identifier Shelf Expiration Date Model / Serial / Lot Port 6fr Chronoflex [id number] - [id number] Implanted:Qty: 1 on 02/22/2008 at [place] [facility] Left: Chest CR BARD : [employer]ESS [employer] [id number] / / [id number] documented as of this encounter Advance Directives Documents on File Type Date Recorded Patient Display Carver Expl anation Advance Directives and Living Will [...] 1:06 PM 01/16/2008 7:05 PM Care Teams Airplane Pilot Helper Relationship Specialty Start Date End Date Ruth Brandon MD 200 [place] [address] PCP - General Internal Medicine 04/25/21 documented as of this encounter
--- OUTSIDE RECORDS SUMMARY | 2024-07-03 13:11 | External Medical Summary | Summary of Care ---
Author Name Unknown Organization [facility] Address [address] [place] [address] Phone [phone] Care Team Providers Care News Commentator Name Role Phone Ruth Brandon MD Primary Care Provider + Reason for Visit * Reason Onset Date Comments Advice 05/31/2024 Information sent to Ins? Encounter Details Date Type Department Care Team (Late st Contact Info) Description 05/31/2024 Telephone Cardiology, [facility] 132 [facility] [place] [id number] Ramsey Gonsalez MD 132 [facility] [place] [phone] Advice (Information sent to Ins?) Allergies Active [...] aorta 06/23/2023 Atherosclerosis of coronary artery of [place] heart without angina pectoris 06/23/2023 Atrial [...] HX OF BREAST MALIGNANCY - ri ght, [id number], 200702/26/2011 10/04/2013 Polyneuropathy in other dise ases [...] mRNA, LNP-s, No Pre serve, 2-Dose Series ([employer]) 07/19/2021,11/06/2020,10/11/2020 COVID-19, LNP-s, No Preserve , Sony-sucrose, Ages 12+ (Pfizer) 12/27/2021 COVID-19, MRNA-LNP, 23-24, P F, 30 MCG/0.3 mL, 12 YRS AND ABOVE, IM ([facility]) 07/13/2023 COVID-19, MRNA-LNP, 24-25, P R, 30MCG/0.3ML, IM, 12YRS AND ABOVE ([facility]) 04/28/2024 Covid-19, Mrna, Lnp-s, Pf, B ivalent, 30 Mcg, IM, 12 yrs and above ([facility]) 07/17/2022 Influenza, Whole Virus 09/15/1985 Pneumococcal Conjugate [...] or do you have serious difficulty hearing? Yes-KOOTENAI, B/L hearing aids 05/23/2024 Are you blind [...] 2024 Appointment Provider:Ramsey Gonsalez MD in CARDIOLOGY [facility] * Telephone Encounter - Ramsey Gonsalez MD [...] 2:12 PM EDT In review of the [facility] Discharge summary the case was discussed multiple times on 05/22 and 05/23 due to spontaneous intracranial and subdural hemorrhages in the setting of persistent elevated INR and GIB. The last conversation on 05/23/24 with neurosurgery pt was recommended by neurosurgery at [facility] to be transferred due to pt needing neurosurgical evaluation in person and this was not able to be given at [facility]. Therefore, the pt needed higher level of [...] you Kamryn Espinoza DO Department of Cardiology [facility] Cardiology [place] [id number] * Telephone Encounter - Jojo Woodward OSA - 05/31/2024 11:45 AM EDT Person calling: Paramijt Relationship to patient: Number to return call: [phone] Reason for call (brief): Ambulance authorized by Pharmacy: N/A Provider Name: Wallace / Alexis / Daron Detailed message to office: (Paramjit) is calling to see if the information was sent to the insurance re:the ambulence ride from [facility] to [place]. Supposedly the 3 Dr's put their heads together & said she needed to be transported to [place]. The Dr just has to fill out a form saying this was medically necessary so that Insurance will pay for the ambulance bill. just needed to know that the information was sent to the [employer]. Please call back to advise thank you. Outcome: TE documented in this encounter Plan of Treatment Upcoming Encounters Date Type Department Care Team (Late st Contact Info) Description 06/07/2024 2:00 PM EDT Office Visit Neurosurgery, [place] [address] [place] [address] Jaswinder Kahn MD, PhD [address] [place] [address] 06/09/2024 5:10 PM EDT Anticoagulation Pharmacy, [facility] [place] [address] [facility] [address] [facility] [address] 06/14/2024 10:00 AM EDT Office Visit Cardiology, [facility] 132 [facility] [place] [address] Ramsey Gonsalez MD [address] [place] [address] 06/20/2024 1:30 PM EST Hem/Onc Treatment Hematology/Oncology Treatment, [place] [address] [place] [phone] Christin, Chair 8 Hem Onc [place] [address] [place] [address] 08/02/2024 10:20 AM EST Office Visit Podiatry [facility] [place] [address] Nicki Gomez DPM [address] [facility] [place] [address] 10/03/2024 3:00 PM EST Office Visit Cardiology, [facility] [address] [place] [address] Rashmi Graham PA-C [address] [place] [address] 10/04/2024 3:00 PM EST Office Visit General Internal Medicine [facility] 200 [facility] [place] [address] Ruth Brandon MD [facility] [place] [address] 11/22/2024 2:00 PM EDT Office Visit Cardiology, [facility] [place] [address] Rashmi Graham PA-C [address] [place] [address] 04/28/2025 1:40 PM EDT Office Visit Rheumatology [place] [address] [facility] [place] [address] Sergio Coughlin MD [address] [facility] [place] [address] Scheduled Procedures Name Priority Associated Diagnoses Date/Ti [...] D LEVEL ONCE IN A LIFETIME-USE SMARTSET# [id number] Completed 04/20/2024, 02/10/2023, 03/18/2021, Additional history exists [...] this encounter Medical Devices Implanted Type Area Public Message Service Supervisor Device Identifier Shelf Expiration Date Model / Serial / Lot Port 6fr Chronoflex [id number] - [id number] Implanted:Qty: 1 on 02/22/2008 at OR [facility] Left: Chest CR BARD : [employer] [id number] / / [id number] documented as of this encounter Advance Directives Documents on File Type Date Recorded 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
--- OUTSIDE RECORDS SUMMARY | 2024-07-03 13:11 | External Medical Summary | Summary of Care ---
Author Name Unknown Organization [facility] Address [address] [place] [address] Phone [phone] Care Team Providers Care Computer Clerk Name Role Phone Ruth Brandon MD Primary Care Provider + Reason for Visit * Reason Onset Date Comments Advice 05/31/2024 Information sent to Ins? Encounter Details Date Type Department Care Team (Late st Contact Info) Description 05/31/2024 Telephone Cardiology, [facility] 132 [facility] [place] [phone] Ramsey Gonsalez MD 132 [facility] [place] [phone] Advice (Information sent to Ins?) Allergies Active [...] aorta 06/23/2023 Atherosclerosis of coronary artery of [place] heart without angina pectoris 06/23/2023 Atrial thrombus [...] HX OF BREAST MALIGNANCY - ri ght, [id number], 200702/26/2011 10/04/2013 Polyneuropathy in other dise ases [...] mRNA, LNP-s, No Pre serve, 2-Dose Series ([employer]) 07/19/2021,11/06/2020,10/11/2020 COVID-19, LNP-s, No Preserve , Sony-sucrose, Ages 12+ (Pfizer) 12/27/2021 COVID-19, MRNA-LNP, 23-24, P F, 30 MCG/0.3 mL, 12 YRS AND ABOVE, IM ([facility]) 07/13/2023 COVID-19, MRNA-LNP, 24-25, P R, 30MCG/0.3ML, IM, 12YRS AND ABOVE ([facility]) 04/28/2024 Covid-19, Mrna, Lnp-s, Pf, B ivalent, 30 Mcg, IM, 12 yrs and above ([employer]) 07/17/2022 Pneumococcal Conjugate Vacc, 13 Valent [...] 2:12 PM EDT In review of the [facility] Discharge summary the case was discussed multiple times on 05/22 and 05/23 due to spontaneous intracranial and subdural hemorrhages in the setting of persistent elevated INR and GIB. The last conversation on 05/23/24 with neurosurgery pt was recommended by neurosurgery at [facility] to be transferred due to pt needing neurosurgical evaluation in person and this was not able to be given at [facility]. Therefore, the pt needed higher level [...] you Kamryn Espinoza DO Department of Cardiology [facility] [place] [address] * Telephone Encounter - Jojo Woodward OSA - 05/31/2024 11:45 AM EDT Person calling: Paramjit Relationship to patient: Number to return call: [phone] Reason for call (brief): Ambulance authorized by Pharmacy: N/A Provider Name: Wallace / Alexis / Daron Detailed message to office: (Paramjit) is calling to see if the information was sent to the insurance re:the ambulence ride from [facility] to [place]. Supposedly the 3 Dr's put their heads together & said she needed to be transported to [place]. The Dr just has to fill out a form saying this was medically necessary so that Insurance will pay for the ambulance bill. just needed to know that the information was sent to the [employer] [employer]. Please call back to advise thank you. Outcome: TE documented in this encounter Plan of Treatment Upcoming Encounters Date Type Department Care Team (Late st Contact Info) Description 06/07/2024 2:00 PM EDT [facility] [address] [facility] [place] [address] Jaswinder Kahn MD, PhD [address] [place] [address] 06/09/2024 5:10 PM EDT Anticoagulation Pharmacy, [facility] [address] [place] [address] [facility] [place] [address] 06/20/2024 1:30 PM EST Hem/Onc Treatment Hematology/Oncology Treatment, [place] [address] [facility] [address] [place], [place] [phone] Christin, Chair 8 Hem Onc [address] [address] 08/02/2024 10:20 AM EST Office Visit Podiatry [facility] [address] [place] [address] Nicki Gomez [facility] [address] [facility] [place] [address] 10/03/2024 3:00 PM EST Office Visit Cardiology, [facility] 132 [facility] [address] Rashmi Graham PA-C [address] [place] [address] 10/04/2024 3:00 PM EST Office Visit General Internal Medicine [facility] 200 [facility] [place], [place] [address] Ruth Brandon MD 200 [facility], [place] [address] 11/22/2024 2:00 PM EDT Office Visit Cardiology, [facility] 132 [facility] [place] [address] Rashmi Graham PA-C [address] [place] [address] 04/28/2025 1:40 PM EDT Office Visit Rheumatology [facility] [address] [place] [address] Sergio Coughlin MD [address] [place] [address] Scheduled Procedures Name Priority Associated Diagnoses Date/Ti [...] D LEVEL ONCE IN A LIFETIME-USE SMARTSET# [id number] Completed 04/20/2024, 02/10/2023, 03/18/2021, Additional history exists [...] this encounter Medical Devices Implanted Type Area Repulping Supervisor Device Identifier Shelf Expiration Date Model / Serial / Lot Port 6fr Chronoflex [id number] - [id number] Implanted:Qty: 1 on 02/22/2008 at OR [facility] Left: Chest CR BARD : [employer] [id number] / / [id number] documented as of this encounter Advance Directives Documents on File Type Date Recorded Patient Program Manager Rn Expl anation Advance Directives and Living Will [...] 1:06 PM 01/16/2008 7:05 PM Care Teams Computer Clerk Relationship Specialty Start Date End Date Ruth Brandon MD 200 [facility] [place] [place] [address] PCP - General Internal Medicine 04/25/21 documented as of this encounter
--- OUTSIDE RECORDS SUMMARY | 2024-07-03 13:11 | External Medical Summary | Summary of Care ---
Author Name Unknown Organization [facility] Address [address] [place] [address] Phone [phone] Care Team Providers Care Waste Oil Pumper Name Role Phone Ruth Brandon MD Primary Care Provider + Reason for Visit * Reason Onset Date Comments Appointment 05/27/2024 Encounter Details Date Type Department Care Team (Late st Contact Info) Description 05/27/2024 Telephone [facility] [address] [place] [address] Camryn Lopes RN Appointment Allergies Active Allergy Reactions Criticality Noted Date Comments Adhesive Tape Other (Please comment) 01/24/2008 Welts, blisters Bee Stings 02/14/2003 Bee Venom Hives 10/17/2019 Iodine Hives 10/17/2019 Ivp Dye 01/10/1998 hives documented as of this encounter (statuses as of 05/27/2024) Medications Medication Sig Dispensed Refills Start Date [...] Tablet before bedtime. 60 Tablet 05/24/2024 Active documented as of this encounter (statuses as of 05/27/2024) Active Problems Problem Noted Date Diagnosed Date SDH (subdural hematoma) 05/25/2024 PAF (paroxysmal atrial fibrillation) 05/24/2024 Chronic anticoagulation 05/24/2024 Acute blood loss anemia 05/24/2024 AVM (arteriovenous malformat ion) of stomach, acquired with hemorrhage 05/24/2024 Nonischemic cardiomyopathy 03/17/2024 Chronic atrial fibrillation 12/29/2023 Atherosclerosis of aorta 06/23/2023 Atherosclerosis of coronary artery of redding heart without angina pectoris 06/23/2023 Atrial thrombus [...] as of this encounter (statuses as of 05/27/2024) Resolved Problems Problem Noted Date Diagnosed Date [...] HX OF BREAST MALIGNANCY - ri ght, [id number], 200702/26/2011 10/04/2013 Polyneuropathy in other dise ases [...] as of this encounter (statuses as of 05/27/2024) Immunizations Name Administration Dates Next Due COVID-19 mRNA, LNP-s, No Pre serve, 2-Dose Series ([employer]) 07/19/2021,11/06/2020,10/11/2020 COVID-19, LNP-s, No Preserve , Sony-sucrose, Ages 12+ (Pfizer) 12/27/2021 COVID-19, MRNA-LNP, 23-24, P F, 30 MCG/0.3 mL, 12 YRS AND ABOVE, IM ([facility]) 07/13/2023 COVID-19, MRNA-LNP, 24-25, P R, 30MCG/0.3ML, IM, 12YRS AND ABOVE ([facility]) 04/28/2024 Covid-19, Mrna, Lnp-s, Pf, B ivalent, [...] Miscellaneous Notes * Telephone Encounter - Camryn Lopes RN - 05/27/2024 12:27 PM EDT Patient scheduled for an appt with Dr. Kahn on Wednesday 05/30 @ [address]. Dr. Kahn asked to push appt a week to allow time for CTH first . Placed call to patient [phone], spoke with patient and verified by name and . Offered and she accepted new appt time 06/07 @ 2pm. Will have CT scheduling contact her with appt beforehand. Camryn Lopes RN Cerebrovascular Nurse Navigator [facility] documented in this encounter Plan of Treatment Upcoming Encounters Date Type Department Care Team (Latest Contact Info) Description 05/27/2024 5:10 PM EDT Anticoagulation Pharmacy, [facility] 132 [place] [address] [facility] [address] [place] [address] Atrial thrombus*; Thrombus due to any device, implant or graft, initial encounter 05/30/2024 10:20 AM EDT Office Visit [facility] 200 [facility] [place] [address] Melanie Yuen PA-C 200 [facility] [address] 06/02/2024 2:15 PM EDT Imaging Rad[facility] 132 [place] [address] 06/02/2024 5:10 PM EDT Anticoagulation Pharmacy, [facility] 132 [place] [address] [facility] 132 [place] [address] 06/07/2024 2:00 PM EDT Office Visit Neurosurgery, [place] [address] [place] [address] Jaswinder Kahn MD, PhD [address] [place] [address] 06/20/2024 1:30 PM EST Hem/Onc Treatment Hematology/Oncology Treatment, [place] 200 [facility] [phone] Christin, Chair 8 Hem Onc [facility] 200 [facility] [place] [address] 08/02/2024 10:20 AM EST Office Visit Podiatry [facility] 132 [facility] [place] [address] Nicki Gomez DPM 132 [facility] [place] [address] 10/04/2024 3:00 PM EST Office Visit General Internal Medicine [facility] 200 [facility] [place] [address] Ruth Brandon MD 200 [facility] [place] [address] 11/22/2024 2:00 PM EDT Office Visit Cardiology, [facility] 132 [facility] [place] [address] Rashmi Graham PA-C [address] [place] [address] 04/28/2025 1:40 PM EDT Office Visit Rheumatology [address] [place] [address] Sergio Coughlin MD [facility] [employer] [facility] [place] [address] Scheduled Procedures Name Priority Associated Diagnoses Date/Ti [...] D LEVEL ONCE IN A LIFETIME-USE SMARTSET# 47502 Completed 04/20/2024, 02/10/2023, 03/18/2021, Additional history exists [...] this encounter Medical Devices Implanted Type Area Video Game Repair Technician Device Identifier Shelf Expiration Date Model / Serial / Lot Port 6fr Chronoflex [id number] - [id number] Implanted:Qty: 1 on 02/22/2008 at [facility] Left: Chest CR BARD : [employer] [id number] / / [id number] documented as of this encounter Advance Directives Documents on File Type Date Recorded Patient Viscosity Inspector Expl anation Advance Directives and Living [...] 1:06 PM 01/16/2008 7:05 PM Care Teams Waste Oil Pumper Relationship Specialty Start Date End Date Ruth Brandon MD [address] [place] [address], [place] [address] PCP - General Internal Medicine 04/25/21 documented as of this encounter
--- OUTSIDE RECORDS SUMMARY | 2024-07-03 13:11 | External Medical Summary | Summary of Care ---
Author Name Unknown Organization [facility] Address [address] [place] [address] Phone [phone] Care Team Providers Care Event Coordinator Name Role Phone Ruth Brandon MD Primary Care Provider + Reason for Visit * Reason Comments Dosage Adjustment Via Phone (anticoag Cl inic) Encounter Details Date Type Department Care Team (Latest Contact Info) Description 05/27/2024 5:10 PM EDT Anticoagulation Pharmacy, [facility] 132 [facility] [address] [facility] 132 [facility] [place] [address] Atrial thrombus*; Thrombus due to any device, [...] this for 13 days. 26 Tablet 05/24/2024 4 Active Pantoprazole Sodium 40 MG Oral Tablet Delayed Release (Protonix) Take 1 Tablet by mouth in the morning and 1 Tablet before bedtime. 60 Tablet 05/24/2024 4 Active documented as of this encounter (statuses [...] HX OF BREAST MALIGNANCY - ri ght, [id number], 200702/26/2011 10/04/2013 Polyneuropathy in other dise ases [...] mRNA, LNP-s, No Pre serve, 2-Dose Series ([employer]) 07/19/2021,11/06/2020,10/11/2020 COVID-19, LNP-s, No Preserve , Sony-sucrose, Ages 12+ ([employer]) 12/27/2021 COVID-19, MRNA-LNP, 23-24, P F, 30 MCG/0.3 mL, 12 YRS AND ABOVE, IM ([employer]) 07/13/2023 COVID-19, MRNA-LNP, 24-25, P R, 30MCG/0.3ML, IM, 12YRS AND ABOVE ([employer]) 04/28/2024 Covid-19, Mrna, Lnp-s, Pf, B ivalent, 30 Mcg, IM, 12 yrs and above ([employer]) 07/17/2022 Influenza, Whole Virus 09/15/1985 Pneumococcal Conjugate [...] or do you have serious difficulty hearing? Yes-Kalie KLEIN/Gee hearing aids 05/23/2024 Are you blind or [...] Progress Notes * Tete Guerrero RPh - 05/27/2024 9:49 AM EDT Message sent to cardiology and neurosurgery to clarify AC plan. Per neurosurgery, patient to hold antithrombotics for at least 2 weeks and then at cardiology/pcp discretion. Follow up after neurosurgery. Tete Guerrero, Pharm D, BCACP Clinical Pharmacist 05/27/2024, 9:53 AM documented in this encounter Plan of Treatment Upcoming Encounters Date Type Department Care Team (Late st Contact Info) Description 05/30/2024 3:30 PM EDT Office Visit Neurosurgery, [place] [address] [place] [address] Jaswinder Kahn MD, PhD [address] [place] [address] 06/02/2024 5:10 PM EDT [facility], [facility] [place] 132 [facility] [place] [address] [place] [address] [place] [address] 06/20/2024 1:30 PM EST Hem/Onc Treatment Hematology/Oncology Treatment, [place] [address] [place] [phone] Christin, Chair 8 Hem Onc [place] [address] [facility] [address] [place] [address] 08/02/2024 10:20 AM EST Office Visit Podiatry [facility] 132 [facility] [place] [address] Nicki Gomez DPM 132 [facility] [place] [address] 10/04/2024 3:00 PM EST Office Visit General Internal Medicine [facility] 200 [facility] [place] [address] Ruth Brandon MD 200 [facility] [place] [address] 11/22/2024 2:00 PM EDT Office Visit Cardiology, [facility] [place] [address] Rashmi Graham, KATHARINE 132 [facility] [place] [address] 04/28/2025 1:40 PM EDT Office Visit Rheumatology [address] [place] [address] Sergio Coughlin MD [address] [place] [address] [place] [address] Scheduled Procedures Name Priority Associated Diagnoses Date/Ti [...] D LEVEL ONCE IN A LIFETIME-USE SMARTSET# 61379 Completed 04/20/2024, 02/10/2023, 03/18/2021, Additional history exists [...] this encounter Medical Devices Implanted Type Area Speech And Hearing Clinic Director Device Identifier Shelf Expiration Date Model / Serial / Lot Port 6fr Chronoflex [id number] - [id number] Implanted:Qty: 1 on 02/22/2008 at [facility] Left: Chest CR BARD : [employer] [id number] / / [id number] documented as of this encounter Visit Diagnoses Diagnosis Atrial thrombus- Primary Other ill-defined heart disease Thrombus due to any device, implant or graft, initial encounter documented in this encounter Advance Directives Documents on File Type Date Recorded 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
--- OUTSIDE RECORDS SUMMARY | 2024-07-03 13:11 | External Medical Summary | Summary of Care ---
Author Name Unknown Organization [facility] Address [address] [place] [address] Phone [phone] Care Team Providers Care Sheet Metal Pattern Cutter Name Role Phone Ruth Brandon MD Primary Care Provider + Reason for Visit * Reason Comments Return Neuro Encounter Details Date Type Department Care Team (Late st Contact Info) Description 06/07/2024 2:00 PM EDT Office Visit Neurosurgery, [place] [address] [place] [address] Jaswinder Kahn MD, PhD [address] [place] [address] SDH (subdural hematoma) ([facility])* Allergies Active Allergy Reactions Criticality Noted Date [...] aorta 06/23/2023 Atherosclerosis of coronary artery of [place] heart without angina pectoris 06/23/2023 Atrial thrombus [...] HX OF BREAST MALIGNANCY - ri ght, [id number], 200702/26/2011 10/04/2013 Polyneuropathy in other dise ases [...] mRNA, LNP-s, No Pre serve, 2-Dose Series (REHAPP) 07/19/2021,11/06/2020,10/11/2020 COVID-19, LNP-s, No Preserve , Sony-sucrose, Ages 12+ (Pfizer) 12/27/2021 COVID-19, MRNA-LNP, 23-24, P F, 30 MCG/0.3 mL, 12 YRS AND ABOVE, IM (P[employer]) 07/13/2023 COVID-19, MRNA-LNP, 24-25, P R, 30MCG/0.3ML, IM, 12YRS AND ABOVE (REHAPP-[email or web address]) 04/28/2024 Covid-19, Mrna, Lnp-s, Pf, B ivalent, 30 Mcg, IM, 12 yrs and above (REHAPP) 07/17/2022 Pneumococcal Conjugate Vacc, 13 Valent (Prevnar) [...] Sign Reading Time Taken Comments Blood Pressure 130/62 06/07/2024 1:43 PM EDT Pulse 71 06/07/2024 1:43 PM EDT Temperature - - Respiratory Rate - - Oxygen Saturation 99% 06/07/2024 1:43 PM EDT Inhaled Oxygen Concentration - - Weight 82.3 kg (181 lb 6.4 oz) 06/07/2024 1:43 P M EDT Height 147.3 cm (4' 10") 06/07/2024 1:43 PM EDT Body Mass Index 37.91 06/07/2024 1:43 PM EDT documented in this encounter Functional Status Functional Status Response Date of Assess ment Are you deaf or do you have serious difficulty hearing? Yes-NUNAKAUYARMIUT, B/L hearing aids 05/23/2024 Are you blind [...] as of this encounter Progress Notes * Jaswinder Kahn MD, PhD - 06/07/2024 2:15 PM EDT Attending addendum: I have reviewed the advanced practitioner documentation and agree. I saw and evaluated the patient on date of service referenced in note and have performed the following medically appropriate historyand/or exam: Eduarda Bond is a very pleasant 79 year old female who presents to our cerebrovascular for CC: small, resolving aSDH - spontaneous in setting of INR derangement Eduarda recovered well. Her recent CTH showed near resolution of the to begin with small subdural hematoma. She is not taking any antithrombotic medications at this time point. We discussed OK to restart next week 06/14/2024. No follow-up CTH required unless new symptoms would arise. In accordance with the patient's symptoms and imaging findings, I recommended that we perform the above mentioned plan. The patient questions were answered thoroughly. The patient expressed understanding and elected to proceed with the above mentioned plan. Jaswinder Kahn MD, PhD Staff Neurosurgeon Endovascular and Cerebrovascular Neurosurgery [facility], [place], [place] * Libby Torrez PA-C - 06/07/2024 2:00 PM EDT PROGRESS NOTE - Neurosurgery [address] [address] Name: Eduarda Bond Date: 06/07/2024 Time: 2:24 PM INTERVAL HISTORY: Eduarda Holbrook is a 79 y.o. female with a PMH of breast ca s/p mastectomy, nonischemic cardiomyopathy, CHF s/p biventricular pacemaker, paroxysmal afib s/p biventricular ICD (2017) c/b right atrial thrombus (2022) on coumadin (Currently holding). She presented to [facility] on 05/23/24 for bruising of her extremities and tongue. She was found to have INR > 9, and CTH showed c/f trace parafalcine SDH. Pt was then transferred to [facility] and discharged 05/25/24. Her recent CTH on 06/02/24 showed near complete resolution of previously seen subdural hematoma . She is not taking anyantithrombotic medications at this time. PAST MEDICAL HISTORY: Past Medical History: Diagnosis Date Yi's esophagus 03/09/2012 UPPER GI ENDOSCOPY DIAGNOSTIC performed by Uma Lin DO at ENDOSCOPY [facility], path showsshort segment Barretts esophagitis repeat in 1 year Barretts esophagus 04/05/2013 UPPER GI ENDOSCOPY DIAGNOSTIC performed by Uma Lin DO at [facility]COPY [facility], inflammation consistent with long segment barretts, repeat egd in 3 years Breast cancer (HCC) 01/14/2008 right breast with mastectomy Chronic atrial fibrillation (HCC) 12/29/2023 HTN, goal below 140/90 Hypothyroidism Left bundle branch block Malignant neoplasm of lower outer quadrant of female breast 12/13/2007 1 of 26 positive lymph nodes Menopause Mitral valve disorder MVP Presence of automatic cardioverter/defibrillator (AICD) 09/03/2017 Reflux esophagitis PAST SURGICAL HISTORY: Past Surgical History: Procedure Laterality Date BX LYMPH NODE DEEP AXIL 01/14/08 BIOPSY LYMPH NODE DEEP AXILLARY OPEN performed by SRIKANTH NÚÑEZ at [place] [facility] CATHETERIZE LEFT HEART THRU SKIN 06/2000 Cardiac Catheterization, Left Heart COLONOSCOPY 1989 - COLONOSCOPY, DIAGNOSTIC (RECTUM) 01/30/09 repeat 10 yrs COLONOSCOPY, DIAGNOSTIC (RECTUM) 11/25/2018 diverticulosis, repeat 10 yrs/[facility] DILATION AND CURETTAGE (D&C) D&C Dr Ward EGD, FLEXIBLE, DIAGNOSTIC 03/09/2012 UPPER GI ENDOSCOPY DIAGNOSTIC performed by Uma Lin DO at [facility], path showsshort segment Barretts esophagitis repeat in 1 year EGD, FLEXIBLE, DIAGNOSTIC 04/05/2013 UPPER GI ENDOSCOPY DIAGNOSTIC performed by Uma Lin DO at [facility], inflammation consistent with long segment barretts, repeat egd in 3 years EGD, FLEXIBLE, DIAGNOSTIC 07/08/2016 Barretts, repeat 3 yrs/[facility] INSER TUNN ACC DEV;5 YRS/OLDER 02/22/08 [...] CARDIAC LABS [facility] FAMILY HISTORY: Family History Problem Relation Name Age of Onset Breast Cancer Sister Heart Disorder Father DE Heart Disorder Sister MVP Hypertension Mother Cancer Brother thyroid Cancer Brother brain Other (skin disorders) Brother denies melanoma or other skin disorders SOCIAL HISTORY: Social History Tobacco Use Smoking status: Never Smokeless tobacco: Never Vaping Use Vaping status: Never Used Substance Use Topics Alcohol use: Not Currently Comment: Rare glass of wine Drug use: No Medications: Current Outpatient Medications Medication Instructions Acetaminophen (TYLENOL) 500 mg, Oral, BID PRN Amiodarone HCl 200 MG Oral Tablet (Cordarone) Take one-half Tablet by mouth in the morning. Amoxicillin 500 MG Oral Capsule (Amoxil) Take 4 capsules prior to appointment CALCIUM 1250 MG PO TABS Take 1 Tablet by mouth in the morning. Entresto 24-26 MG Oral Tablet (sacubitril-valsartan 24-26 mg per tab) TAKE ONE TABLET BY MOUTH TWICE A DAY Furosemide 20 MG Oral Tablet (Lasix) TAKE ONE TABLET BY MOUTH EVERY DAY 5 DAYS PER WEEK, WITH AN EXTRA TABLET ON ALTERNATIVE DAYS IF NEEDED levETIRAcetam (KEPPRA) 500 mg, Oral, BID (.AM/PM) Levothyroxine Sodium 25 MCG Oral Tablet (Levoxyl) TAKE ONE TABLET BY MOUTH DAILY AT LEAST 30 MINUTES PRIOR TO FIRST MEAL OF THE DAY OR OTHER MEDICATIONS metoprolol succinate XL (TOPROL XL) 25 mg, Oral, Daily(AM) pantoprazole (PROTONIX) 40 mg, Oral, BID (.AM/PM) Rosuvastatin Calcium 10 MG Oral Tablet (Crestor) TAKE ONE TABLET BY MOUTH EVERY DAY IN THE MORNING traZODone (DESYREL) 50 mg, Oral, HS Triamcinolone Acetonide 0.1 % External Cream (Aristocort) Apply to areas of itchy rash on back, arms, and neck twice daily VITAMIN B-6 100 MG PO TABS Take 1 Tablet by mouth in the morning. VITAMIN D 2000 UNITS PO CAPS Take 1,000 Units by mouth in the morning. ALLERGIES: Adhesive tape, Bee stings, Bee venom, Iodine, and Ivp dye ROS: ROS negative unless stated otherwise in HPI VITALS: BP 130/62 (BP Site: Left Arm, BP Position: Sitting, BP Cuff Size: Regular) | Pulse 71 | Ht 1.473 m (4' 10") | Wt 82.3 kg (181 lb 6.4 oz) | SpO2 99% | BMI 37.91 kg/m | BSA 1.84 m PHYSICAL EXAM: Awake, FC No facial droop No pronator drift TRIVEDI to command RUE 5/5 LUE 5/5 RLE 5/5 LLE 5/5 Sensation intact Hearing intact IMAGING: Near complete resolution of previously seen subdural hematoma. IMPRESSION: This is a 79 y.o. female with PMH of breast ca s/p mastectomy, nonischemic cardiomyopathy, CHF s/p biventricular pacemaker, paroxysmal afib s/p biventricular ICD (2017) c/b right atrial thrombus (2022) on coumadin (currently holding) with recent parafalcine SDH. CLINICAL HISTORY AND PLAN: OK to restart anticoagulation next week 06/14/2024. No follow-up CTH required unless new symptoms would arise. Follow up with cardiology and PCP. All questions and concerns addressed Encouraged to call with any questions or concerns Patient discussed with Dr. Kahn. Libby Torrez PA-C Neuroscience [address] [place] [address] 06/07/2024 2:39 PM * Eleanor Lnogo CMA - 06/07/2024 1:45 PM EDT Patient verified identity by spelling of last name and date. I have reviewed the patient's medical record. Patient is here for a return appointment. documented in this encounter Plan of Treatment Upcoming Encounters Date Type Department Care Team (Late st Contact Info) Description 06/09/2024 5:10 PM EDT Anticoagulation Pharmacy, [facility] [address] [address] [facility] [address] [address] 06/14/2024 10:00 AM EDT Office Visit Cardiology, [facility] [address] [address] Ramsey Gonsalez MD [address] [place] [address] 06/20/2024 1:30 PM EST Hem/Onc Treatment Hematology/Oncology Treatment, [place] [address] [place] [phone] Christin, Chair 8 Hem Onc Scenery [facility] [address] 08/02/2024 10:20 AM EST Office Visit Podiatry [facility] [place] [address] [address] Nicki Gomez DPM [address] [place] [address] 10/03/2024 3:00 PM EST Office Visit Cardiology, [facility] [address] [place] [address] Rashmi Graham PA-C [address] [place] [address] 10/04/2024 3:00 PM EST Office Visit General Internal Medicine [facility] [address] [place] [address] Ruth Brandon MD 200 [facility] [place] [address] 11/22/2024 2:00 PM EDT Office Visit Cardiology, [facility] [address] [place] [address] Rashmi Graham PA-C [address] [place] [address] 04/28/2025 1:40 PM EDT Office Visit Rheumatology [facility] [address] [facility] [place], [place] [address] Sergio Coughlin MD [address] [facility] [place], [place] [address] Scheduled Procedures Name Priority Associated Diagnoses Date/Ti [...] 020 01/2024, 05/06/2022, Additional history exists GFR 05/24/2025 05/24/2024, 02/2024, 05/12/2024, Additional history exists DTap/Tdap Vaccines (3 - Td or Tdap) 04/29/2026 04/29/2016, 03/02/2006 Pneumococcal Vaccine: 65+ Years Completed 04/04/2015, 09/28/2012, 10/28/2006 Zoster Vaccines Completed 01/15/2019, 02/2018, 04/02/2011 VITAMIN D LEVEL ONCE IN A LIFETIME-USE SMARTSET# [id number] Completed 04/20/2024, 02/10/2023, 03/18/2021, Additional history exists [...] this encounter Medical Devices Implanted Type Area Engravings Polisher Device Identifier Shelf Expiration Date Model / Serial / Lot Port 6fr Chronoflex [id number] - [id number] Implanted:Qty: 1 on 02/22/2008 at [place] [facility] Left: Chest CR BARD : ACCESS SYSTEMS [id number] / / [id number] documented as of this encounter Visit Diagnoses Diagnosis SDH (subdural hematoma) (HCC)- Primary Subdural hemorrhage documented in this encounter Advance Directives Documents on File Type Date Recorded 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
--- OUTSIDE RECORDS SUMMARY | 2024-07-03 13:11 | External Medical Summary | Summary of Care ---
Author Name Unknown Organization [facility] Address [address] [place] [address] Phone [phone] Care Team Providers Care Shipping And Receiving Weigher Name Role Phone Ruth Brandon MD Primary Care Provider + Reason for Visit * Reason Comments Dosage Adjustment Via Phone (anticoag Cl inic) Encounter Details Date Type Department Care Team (Latest Contact Info) Description 05/27/2024 5:10 PM EDT Anticoagulation Pharmacy, [facility] [address] [facility] 132 [place] [address] Atrial thrombus*; Thrombus due to any device, [...] aorta 06/23/2023 Atherosclerosis of coronary artery of [place] heart without angina pectoris 06/23/2023 Atrial thrombus [...] HX OF BREAST MALIGNANCY - ri ght, [id number], 200702/26/2011 10/04/2013 Polyneuropathy in other dise ases [...] mRNA, LNP-s, No Pre serve, 2-Dose Series (Angry Citizen) 07/19/2021,11/06/2020,10/11/2020 COVID-19, LNP-s, No Preserve , Sony-sucrose, Ages 12+ ([employer] Citizen) 12/27/2021 COVID-19, MRNA-LNP, 23-24, P F, 30 MCG/0.3 mL, 12 YRS AND ABOVE, IM ([employer]) 07/13/2023 COVID-19, MRNA-LNP, 24-25, P R, 30MCG/0.3ML, IM, 12YRS AND ABOVE ([employer]) 04/28/2024 Covid-19, Mrna, Lnp-s, Pf, B ivalent, 30 Mcg, IM, 12 yrs and above ([employer] Citizen) 07/17/2022 Pneumococcal Conjugate Vacc, 13 Valent (Prevnar) [...] or do you have serious difficulty hearing? Yes-[place] PASS, B/L hearing aids 05/23/2024 Are you blind [...] this encounter Progress Notes * Tete Guerrero [facility] - 05/27/2024 9:49 AM EDT Message sent to cardiology and neurosurgery to clarify AC plan. Tete Guerrero, Pharm D, BCACP Clinical Pharmacist 05/27/2024, 9:53 AM documented in this encounter Plan of Treatment Upcoming Encounters Date Type Department Care Team (Late st Contact Info) Description 05/30/2024 3:30 PM EDT Office Visit Neurosurgery, [place] [address] [place] [address] Jaswinder Kahn MD, PhD [address] [place] [address] 06/02/2024 5:10 PM EDT Anticoagulation Pharmacy, [facility] [address] [place] [address] [place] [address] 06/20/2024 1:30 PM EST Hem/Onc Treatment Hematology/Oncology Treatment, [place] [address] [place] [address] Christin, Chair 8 Hem Onc [facility] [address] [facility] [place] [address] 08/02/2024 10:20 AM EST Office Visit Podiatry [facility] [address] [place] [address] Nicki Gomez, HELLEN [address] [place] [address] 10/04/2024 3:00 PM EST Office Visit General Internal Medicine [facility] 200 [facility] [place] [address] Ruth Brandon MD 200 [facility] [place] [address] 11/22/2024 2:00 PM EDT Office Visit Cardiology, [facility] [address] [place] [address] Rashmi Graham PA-C [address] [place] [address] 04/28/2025 1:40 PM EDT Office Visit Rheumatology [place] [address] [place] [address] Sergio Coughlin MD [address] [employer] [place] [address] Scheduled Procedures Name Priority Associated Diagnoses Date/Ti [...] 05/12/2024, 0201/2024, 05/06/2022, Additional history exists GFR 05/24/2025 05/24/2024, 02/2024, 05/12/2024, Additional history exists DTap/Tdap Vaccines (3 - Td or Tdap) 04/29/2026 04/29/2016, 03/02/2006 Pneumococcal Vaccine: 65+ Years Completed 04/04/2015, 09/28/2012, 10/28/2006 Zoster Vaccines Completed 01/15/2019, 02/2018, 04/02/2011 VITAMIN D LEVEL ONCE IN A LIFETIME-USE SMARTSET# [id number] Completed 04/20/2024, 02/10/2023, 03/18/2021, Additional history exists [...] this encounter Medical Devices Implanted Type Area Chain Maker Machine Device Identifier Shelf Expiration Date Model / Serial / Lot Port 6fr Chronoflex [id number] - [id number] Implanted:Qty: 1 on 02/22/2008 at [facility] Left: Chest CR BARD : ACCESS SYSTEMS [id number] / / [id number] documented as of this encounter Visit Diagnoses Diagnosis Atrial thrombus- Primary Other ill-defined heart disease Thrombus due to any device, implant or graft, initial encounter documented in this encounter Advance Directives Documents on File Type Date Recorded 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
--- OUTSIDE RECORDS SUMMARY | 2024-07-03 13:11 | External Medical Summary | Summary of Care ---
Author Name Unknown Organization [facility] Address [address] [place] [address] Phone [phone] Care Team Providers Care Chamber Walker Name Role Phone Ruth Brandon MD Primary Care Provider + Encounter Details Date Type Department Care Team (Latest Contact Info) Description 05/20/2024 8:30 PM EDT - 05/20/2024 11:59 PM EDT Hospital Encounter Radiology [place] [address] [place] [address] Discharge Disposition: Home - Self Care Allergies Active Allergy Reactions Criticality Noted Date [...] aorta 06/23/2023 Atherosclerosis of coronary artery of [place] heart without angina pectoris 06/23/2023 Atrial thrombus [...] HX OF BREAST MALIGNANCY - ri ght, [id number], 200702/26/2011 10/04/2013 Polyneuropathy in other dise ases [...] mRNA, LNP-s, No Pre serve, 2-Dose Series (Restalo) 07/19/2021,11/06/2020,10/11/2020 COVID-19, LNP-s, No Preserve , Sony-sucrose, Ages 12+ (Restalo) 12/27/2021 COVID-19, MRNA-LNP, 23-24, P F, 30 MCG/0.3 mL, 12 YRS AND ABOVE, IM ([employer]) 07/13/2023 COVID-19, MRNA-LNP, 24-25, P R, 30MCG/0.3ML, IM, 12YRS AND ABOVE (Pfizer-Comirnaty) 04/28/2024 Covid-19, Mrna, Lnp-s, Pf, B ivalent, [...] Description 05/27/2024 5:10 PM EDT Anticoagulation Pharmacy, [facility] [address] [address] [place] [address] [place] [address] Atrial thrombus*; Thrombus due to any device, implant or graft, initial encounter 05/30/2024 10:20 AM EDT Office Visit Family Practice [facility] 200 [facility] [place] [address] Melanie Yuen PA-C [address] [place] [address] 06/02/2024 2:15 PM EDT Imaging Radiology [facility] [address] [place] [address] [address] 06/02/2024 5:10 PM EDT Anticoagulation Pharmacy, [facility] [address] [address] [facility] [place] [address] 06/07/2024 2:00 PM EDT Office Visit Neurosurgery, [place] [address] [place] [address] Jaswinder Kahn MD, PhD [address] [place] [address] 06/20/2024 1:30 PM EST Hem/Onc Treatment Hematology/Oncology Treatment, [place] [address] [facility], [place] [phone] Christin, Chair 8 Hem Onc [address] [address] 08/02/2024 10:20 AM EST Office Visit Podiatry [facility] [address] [facility] [place] [address] Nicki Gomez DPM 132 [facility] [place] [address] 10/03/2024 3:00 PM EST Office Visit Cardiology, [facility] 132 [facility] [place] [address] Rashmi Graham PA-C 132 [facility] [place] [address] 10/04/2024 3:00 PM EST Office Visit General Internal Medicine [facility] 200 [facility] [place] [address] Ruth Brandon MD 200 [facility], [place] [address] 11/22/2024 2:00 PM EDT Office Visit Cardiology, [facility] [address] [facility] [place] [address] Rashmi Graham PA-C [address] [facility] [place] [address] 04/28/2025 1:40 PM EDT Office Visit Rheumatology [facility] [address] [facility] [place] [address] Sergio Coughlin MD [address] [place] [address] Scheduled Procedures Name Priority Associated Diagnoses Date/Ti [...] D LEVEL ONCE IN A LIFETIME-USE SMARTSET# [id number] Completed 04/20/2024, 02/10/2023, 03/18/2021, Additional history exists [...] this encounter Medical Devices Implanted Type Area Systems Software Designer Device Identifier Shelf Expiration Date Model / Serial / Lot Port 6fr Chronoflex [id number] - [id number] Implanted:Qty: 1 on 02/22/2008 [place] [facility] Left: Chest CR BARD : ACCESS SYSTEMS [id number] / / [id number] documented as of this encounter Procedures Procedure Name Priority Date/Time Associated Diagnosis Comments RADIOLOGY EXAM - CT (IMAGES ONLY, NO REPORT) Routine 05/20/2024 8:30 PM EDT documented in this encounter Results * RADIOLOGY EXAM - CT (IMAGES ONLY, NO REPORT) (05/20/2024 8:30 PM EDT) 05/20/2024 8:27 PM EDT Narrative Scheduling, Silent - 05/26/2024 3:20 PM EDT This is an imaging study not interpreted or resulted by a [facility] or [facility] contracted radiologist. Jaswinder Kahn MD, PhD RAD CT documented in this encounter Advance Directives Documents on File Type Date Recorded Patient Stud Driver Expl anation Advance Directives and Living Will [...] 1:06 PM 01/16/2008 7:05 PM Care Teams Chamber Walker Relationship Specialty Start Date End Date Ruth Brandon MD [address] [place] [address], [place] [address] PCP - General Internal Medicine 04/25/21 documented as of this encounter
--- OUTSIDE RECORDS SUMMARY | 2024-07-03 13:12 | External Medical Summary | Summary of Care ---
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 Role Phone Ruth Brandon MD Primary Care Provider + Reason for Referral * Precert (Within 10 days (routine)) - Authorized Specialty Diagnoses / Procedures Referred By Valeria chua Referred To Contact Radiology Diagnoses SDH (subdural hematoma) (HCC) Procedures CT HEAD/BRAIN WO CONTRAST Az Quick PA-C [address] [place] [address] Referral ID Status Reason Start Date Expiration Date V isits Requested Visits Authorized [id number] Authorized 06/08/2024 [id number] Reason for Visit * Auth/Cert Specialty Diagnoses / Procedures Referred By Valeria chua Referred To Contact Diagnoses SDH (subdural hematoma) (HCC) Acute SDH, Spontaneous Jaswinder Kahn MD, PhD [address] [place] [address] [place] [facility] [address] [place] [address] Referral ID Status Reason Start Date Expiration Date Visits Re quested Visits Authorized [id number] Encounter Details Date Type Department Care Team (Latest Contact Info) Description 05/23/2024 10:17 PM EDT - 05/25/2024 2:22 PM EDT Hospital Encounter [facility] 4TH FLOOR [address] [place] [address] Jaswinder Kahn MD, PhD [address] [place] [address] Discharge Disposition: Home - Self Care Allergies Active Allergy Reactions Criticality Noted Date Comments Adhesive Tape Other (Please comment) 01/24/2008 Welts, blisters Bee Stings 02/14/2003 Bee Venom Hives 10/17/2019 Iodine Hives 10/17/2019 Ivp Dye 01/10/1998 hives documented as of this encounter (statuses as of 05/26/2024) Medications Medication Sig Dispensed Refills Start Date [...] 3 Active Furosemide 20 MG Oral Tablet (Lasix)Indications: [...] 3 Active Entresto 24-26 MG Oral Tablet (sacubitril-valsart [...] 90 Tablet 3 4 09/07/19 25 Active Metoprolol Succinate ER 25 MG [...] the morning. 50 Tablet 3 4 Active levETIRAcetam 500 MG Oral Tablet (Keppra) Take 1 Tablet by mouth in the morning and 1 Tablet before bedtime. Do all this for 13 days. 26 Tablet 4 06/07/20 24 Active Pantoprazole Sodium 40 MG Oral Tablet Delayed Release (Protonix) Take 1 Tablet by mouth in the morning and 1 Tablet before bedtime. 60 Tablet 4 06/24/20 24 Active ASPIRIN 81 MG PO TABS Take 1 Tablet by mouth in the morning. 05/24/20 24 Discontinued Pantoprazole Sodium 40 MG Oral Tablet Delayed Release (Protonix) TAKE ONE TABLET BY MOUTH EVERY DAY 100 Tablet 2 4 05/24/20 24 Discontinued Cefuroxime Axetil 500 MG Oral Tablet (Ceftin)Indications :Acute non-recurrent frontal sinusitis Take 1 Tablet by mouth in the morning and 1 Tablet before bedtime. Do all this for 10 days. 20 Tablet 4 05/24/20 24 Discontinued documented as of this encounter (statuses as of 05/26/2024) Active Problems Problem Noted Date Diagnosed Date SDH (subdural hematoma) 05/25/2024 PAF (paroxysmal atrial fibrillation) 05/24/2024 Chronic anticoagulation 05/24/2024 Acute blood loss anemia 05/24/2024 AVM (arteriovenous malformat ion) of stomach, acquired with hemorrhage 05/24/2024 Nonischemic cardiomyopathy 03/17/2024 Chronic atrial fibrillation 12/29/2023 Atherosclerosis of aorta 06/23/2023 Atherosclerosis of coronary artery of [place] heart without angina pectoris 06/23/2023 Atrial thrombus [...] as of this encounter (statuses as of 05/26/2024) Resolved Problems Problem Noted Date Diagnosed Date [...] HX OF BREAST MALIGNANCY - ri ght, [id number], 200702/26/2011 10/04/2013 Polyneuropathy in other dise ases [...] as of this encounter (statuses as of 05/26/2024) Immunizations Name Administration Dates Next Due COVID-19 mRNA, LNP-s, No Pre serve, 2-Dose Series ([employer]) 07/19/2021,11/06/2020,10/11/2020 COVID-19, LNP-s, No Preserve , Sony-sucrose, Ages 12+ (Giga[employer]te) 12/27/2021 COVID-19, MRNA-LNP, 23-24, P F, 30 MCG/0.3 mL, 12 YRS AND ABOVE, IM ([facility] [place]) 07/13/2023 COVID-19, MRNA-LNP, 24-25, P R, 30MCG/0.3ML, [...] Sign Reading Time Taken Comments Blood Pressure 122/64 05/25/2024 2:00 PM EDT Pulse 71 05/25/2024 2:00 PM EDT Temperature 36.3 C (97.4 F) 05/25/2024 2:00 PM ED T Respiratory Rate 18 05/25/2024 2:00 PM EDT Oxygen Saturation 98% 05/25/2024 2:00 PM EDT Inhaled Oxygen Concentration - - Weight 84.4 kg (186 lb) 05/25/2024 5:36 AM EDT Height 147.3 cm (4' 10") 05/23/2024 10:22 PM EDT Body Mass Index 38.87 05/23/2024 10:22 PM EDT documented in this [...] No 05/23/2024 documented as of this encounter Discharge Summaries * Az Quick PA-C - 05/25/2024 1:28 PM EDT [address] [place] [address] Admission Date: 05/23/2024 Discharge Date: 05/25/2024 DISCHARGE DIAGNOSES: Active Hospital Problems Diagnosis SDH (subdural hematoma) (HCC) PAF (paroxysmal atrial fibrillation) (HCC) Chronic anticoagulation Acute blood loss anemia AVM (arteriovenous malformation) of stomach, acquired with hemorrhage Resolved Hospital Problems No resolved problems to display. Other Significant Diagnoses: none CONDITION ON DISCHARGE: stable Cognition: normal DISPOSITION ON DISCHARGE: home FOLLOW-UP: Future Appointments Appt Date/Time Provider Department 05/27/2024 5:10 PM [facility] 06/20/2024 1:30 PM Christin, Chair 8 Hem Onc [facility]/02/2024 10:20 AM Nicki Gomez DPM Podiatry [facility] 10/04/2024 3:00 PM Ruth Brandon MD General Internal Medicine [facility] 11/22/2024 2:00 PM Rashmi Graham PA-C Cardiology, [facility] 04/28/2025 1:40 PM Sergio Coughlin MD Rheumatology [facility] Outpatient testing already scheduled: N/A Outpatient testing that needs to be arranged: CTH in 2 weeks Inpatient test results pending: N/A MEDICATIONS ON DISCHARGE: MEDICATION UPDATES AT DISCHARGE START taking these medications INSTRUCTIONS levETIRAcetam 500 MG Tablet Commonly known as: Keppra Take 1 Tablet by mouth in the morning and 1 Tablet before bedtime. Do all this for 13 days. CHANGE how you take these medications INSTRUCTIONS pantoprazole 40 MG Tbec Commonly known as: Protonix What changed: how much to take how to take this when to take this Take 1 Tablet by mouth in the morning and 1 Tablet before bedtime. CONTINUE taking these medications INSTRUCTIONS Acetaminophen 500 MG Tablet Commonly known as: Tylenol Take 1 Tablet by mouth 2 times a day as needed (pain). albuterol HFA 108 (90 BASE) MCG/ACT inhaler Commonly known as: Ventolin HFA Inhale 2 Puffs by mouth every 6 hours as needed for Wheezing. amiodarone 200 MG Tablet Commonly known as: Cordarone Take one-half Tablet by mouth in the morning. Amoxicillin 500 MG Capsule Commonly known as: Amoxil Take 4 capsules prior to appointment Calcium 1250 MG Tabs Take 1 Tablet by mouth in the morning. Entresto 24-26 MG Tabs Generic drug: sacubitril-valsartan 24-26 mg per tab TAKE ONE TABLET BY MOUTH TWICE A DAY Furosemide 20 MG Tablet Commonly known as: Lasix TAKE ONE TABLET BY MOUTH EVERY DAY 5 DAYS PER WEEK, WITH AN EXTRA TABLET ON ALTERNATIVE DAYS IF NEEDED levothyroxine 25 MCG Tablet Commonly known as: Levoxyl TAKE ONE TABLET BY MOUTH DAILY AT LEAST 30 MINUTES PRIOR TO FIRST MEAL OF THE DAY OR OTHER MEDICATIONS metoprolol succinate XL 25 MG Tb24 Commonly known as: toPROL XL Take 1 Tablet by mouth in the morning. pyridOXINE 100 MG Tablet Commonly known as: vitamin B-6 Take 1 Tablet by mouth in the morning. rosuvastatin 10 MG Tablet Commonly known as: Crestor TAKE ONE TABLET BY MOUTH EVERY DAY IN THE MORNING Triamcinolone Acetonide 0.1 % cream Commonly known as: Aristocort Apply to areas of itchy rash on back, arms, and neck twice daily Vitamin D 50 MCG (2000 UT) Capsule Take 1,000 Units by mouth in the morning. STOP taking these medications Aspirin 81 MG Tablet Cefuroxime 500 MG Tablet Commonly known as: Ceftin Comirnaty 30 MCG/0.3ML Sanjuanita intramuscular injection Generic drug: COVID-19 mRNA Vaccine 12 years and above [employer] ALLERGIES: Adhesive tape, Bee stings, Bee venom, Iodine, and Ivp dye INSTRUCTIONS: Activity: No strenuous activity for 2 weeks No lifting or pushing or pulling more than 10 lbs for 2 weeks Diet: normal diet Code Status: Full Code Indwelling devices: none ADMISSION HISTORY & PHYSICAL EXAM (focused): NEUROLOGICAL SURGERY [place] [facility] [address] Name: Eduarda Bond [place] [facility] A473/A Date: 05/23/2024 Time: 10:21 PM HISTORY OF PRESENT ILLNESS: Eduarda Bond is a 79 year old female with Hx breast ca s/p mastectomy, nonischemic cardiomyopathy, CHF s/p biventricular pacemaker, paroxysmal afib s/p biventricular ICD (2017) c/b right atrial thrombus (2022) on coumadin, presented to [facility] over the weekend due to noted bruising of her extremities and tongue, noted to have INR > 9, and CTH obtained there showed c/f trace parafalcine SDH. Pt was subsequently transferred [place] [facility] for above. PAST MEDICAL HISTORY: Past Medical History Past Medical History: Diagnosis Date Yi's esophagus 03/09/2012 UPPER GI ENDOSCOPY DIAGNOSTIC performed by Uma Lin DO at ENDOSCOPY [facility], path showsshort segment Barretts esophagitis repeat in 1 year Barretts esophagus 04/05/2013 UPPER GI ENDOSCOPY DIAGNOSTIC performed by Uma Lin DO at ENDOSCOPY [facility], inflammation consistent with long segment barretts, repeat [...] Reflux esophagitis PAST SURGICAL HISTORY: Past Surgical History Past Surgical History: Procedure Laterality Date BX LYMPH NODE DEEP AXIL 01/14/08 BIOPSY LYMPH NODE DEEP AXILLARY OPEN performed by SRIKANTH NÚÑEZ at [place] [facility] CATHETERIZE LEFT HEART THRU SKIN 06/2000 Cardiac Catheterization, Left Heart COLONOSCOPY 1989 - COLONOSCOPY, DIAGNOSTIC (RECTUM) 01/30/09 repeat 10 yrs COLONOSCOPY, DIAGNOSTIC (RECTUM) 11/25/2018 diverticulosis, repeat 10 yrs/[facility] DILATION AND CURETTAGE (D&C) D&C Dr Ward EGD, FLEXIBLE, DIAGNOSTIC 03/09/2012 UPPER GI ENDOSCOPY DIAGNOSTIC performed by Uma Lin DO at [facility], path showsshort segment Barretts esophagitis repeat in 1 year EGD, FLEXIBLE, DIAGNOSTIC 04/05/2013 UPPER GI ENDOSCOPY DIAGNOSTIC performed by Uma Lin DO at [facility], inflammation consistent with long segment barretts, repeat egd in 3 years EGD, FLEXIBLE, DIAGNOSTIC 07/08/2016 Barretts, repeat 3 yrs/[facility] INSER TUNN ACC DEV;5 YRS/OLDER 02/22/08 INSERT TUNNELED CENTRAL VENOUS ACCESS WITH SUBQ PORT performed by SRIKANTH NÚÑEZ at [place] [facility] LEFT VENTRICULAR PACING ELECTRODE, ADD-ON Left 08/25/2017 CS LEAD PLACEMENT WITH INITIAL DEVICE performed by Kamryn Espinoza DO at [facility]ARDIAC [facility] LIGATE/CUT OVIDUCT(S) MASTECTOMY, SIMPLE, COMPLETE 01/14/08 MASTECTOMY SIMPLE COMPLETE performed by SRIKANTH NÚÑEZ at [place] [facility] THORACOSTOMY TUBE W/ WATER SEAL 02/23/2008 TRANSLUM BALLOON ANGIOPLASTY OPEN/PERC W/IMAGE 1ST VEIN 08/25/2017 ANGIOPLASTY (EXCEPT DIALYSIS CIRCUIT) performed by Kamryn Espinoza DO at [facility] VENOGRAM EXTREMITY UNI-FLUOR 08/25/2017 IMAGING SUPERVISION & INTERPRETATION EXTREMITY VEIN performed by Kamryn Espinoza DO at [facility] SOCIAL HISTORY: Social History Socioeconomic History Marital status: Spouse name: Trace Number of children: 4 Years of education: Not on file Highest education level: Not on file Occupational History 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 Amiodarone HCl 200 MG Oral Tablet (Cordarone) Take one-half Tablet by mouth in the morning. Comirnaty 30 MCG/0.3ML Intramuscular Suspension Prefilled Syringe (COVID-19 mRNA Vaccine 12 years and above [employer]te) Inject into a large muscle. Cefuroxime Axetil 500 MG Oral Tablet (Ceftin) Take 1 Tablet by mouth in the morning and 1 Tablet before bedtime. Do all this for 10 days. Levothyroxine Sodium 25 MCG Oral Tablet (Levoxyl) TAKE ONE TABLET BY MOUTH DAILY AT LEAST 30 MINUTES PRIOR TO FIRST MEAL OF THE DAY OR OTHER MEDICATIONS Metoprolol Succinate ER 25 MG Oral Tablet Extended Release 24 Hour (toPROL XL) Take 1 Tablet by mouth in the morning. Pantoprazole Sodium 40 MG Oral Tablet Delayed Release (Protonix) TAKE ONE TABLET BY MOUTH EVERY DAY Patient taking differently: 1 Tablet in the morning. Rosuvastatin Calcium 10 MG Oral Tablet (Crestor) TAKE ONE TABLET BY MOUTH EVERY DAY IN THE MORNING Entresto 24-26 MG Oral Tablet (sacubitril-valsartan 24-26 mg per tab) TAKE ONE TABLET BY MOUTH TWICE A DAY Furosemide 20 MG Oral Tablet (Lasix) TAKE ONE TABLET BY MOUTH EVERY DAY 5 DAYS PER WEEK, WITH AN EXTRA TABLET ON ALTERNATIVE DAYS IF NEEDED Triamcinolone Acetonide 0.1 % External Cream (Aristocort) Apply to areas of itchy rash on back, arms, and neck twice daily Amoxicillin 500 MG Oral Capsule (Amoxil) Take 4 capsules prior to appointment acetaminophen (TYLENOL) 500 MG Tablet Take 1 Tablet by mouth 2 times a day as needed (pain). albuterol (VENTOLIN HFA) 108 (90 BASE) MCG/ACT inhaler Inhale 2 Puffs by mouth every 6 hours as needed for Wheezing. VITAMIN D 2000 UNITS PO CAPS Take 1,000 Units by mouth in the morning. ASPIRIN 81 MG PO TABS Take 1 Tablet by mouth in the morning. CALCIUM 1250 MG PO TABS Take 1 Tablet by mouth in the morning. VITAMIN B-6 100 MG PO TABS Take 1 Tablet by mouth in the morning. ALLERGIES: Allergies Review of patient's allergies indicates: Allergen Reactions Adhesive Tape Other (Please comment) Welts, blisters Bee Stings Bee Venom Hives Iodine Hives Ivp Dye hives REVIEW OF SYSTEMS: Per HPI PHYSICAL EXAMINATION: Vital signs over last 24 hours: Systolic BP: No data recorded Temperature: No data recorded Pulse: Pulse Avg: No data recorded Respirations: No data recorded SpO2: No data recorded Neurologic Examination GCS 15 AOx3 CN2-12 grossly intact No pronator drift Motor strength 5/5 throughout Sensation grossly intact Bruising on extremities and tongue LABS: Chemistry: Lab Results Lab Results Component Value Date/Time BUN 17 05/12/2024 10:23 AM BUN 19 07/02/2020 02:20 PM CREAT 1.1 (H) 05/12/2024 10:23 AM CREAT 0.9 07/02/2020 02:20 PM GFRESTIMATED >60.0 07/02/2020 02:20 PM NA 144 05/12/2024 10:23 AM NA 139 07/02/2020 02:20 PM POTASSIUM 4.1 05/12/2024 10:23 AM POTASSIUM 5.1 07/02/2020 02:20 PM CO2 30 05/12/2024 10:23 AM CO2 30 07/02/2020 02:20 PM GLU 123 (H) 10/20/2019 06:23 AM Coagulation studies: Lab Results Lab Results Component Value Date/Time INR >9.0 (HH) 05/17/2024 02:35 PM INR 6.9 05/10/2024 11:43 AM INR 0.98 08/25/2017 07:17 AM Blood count: Lab Results Lab Results Component Value Date/Time WBC 3.99 (L) 05/12/2024 10:23 AM WBC 3.34 (L) 02/02/2020 10:02 AM HGB 13.4 05/12/2024 10:23 AM HGB 13.9 02/02/2020 10:02 AM HCT 42.4 05/12/2024 10:23 AM HCT 43.1 02/02/2020 10:02 AM PLT 165 05/12/2024 10:23 AM PLT 134 (L) 02/02/2020 10:02 AM IMAGING STUDIES: My Interpretation of Current Images: CTH shows trace parafalcine SDH vs falx thickening Present on admission: There is no height or weight on file to calculate BMI. Problem List Patient Active Problem List Diagnosis Hypothyroidism Mitral [...] aorta (HCC) Atherosclerosis of coronary artery of [place] heart without angina pectoris Chronic atrial fibrillation (HCC) Nonischemic cardiomyopathy (HCC) IMPRESSION: Eduarda Bond is a 79 year old female patient with above cardiac hx transferred from [facility] for trace parafalcine SDH vs falx thickening after having a supratherapeutic INR > 9, since corrected. 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 Criss Gipson MD Neurosurgery, PGY3 Cosigned by: Jaswinder Kahn MD, PhD at 05/24/24 3579 HOSPITAL COURSE (focused): 79 year old female patient with above cardiac hx transferred from [facility] for trace parafalcine SDH vs falx thickening after having a supratherapeutic INR > 9, since corrected. anticoagulation held for 2 weeks. Operations & Procedures: None Complications: none significant SIGNIFICANT RESULTS: Vital Signs (last recorded): Most Recent Systolic BP: 113 mmHg (05/25/24 0755) Most Recent Diastolic BP: 51 mmHg (05/25/24 0755) Pulse: 75 (05/25/24 0755) Resp: 16 (05/25/24 0600) Most Recent Temperature: 37.28 C (05/25/24 0600) Weight: 84.4 kg (186 lb) (05/25/24 0536) SpO2: 97 % (05/25/24 0628) O2 flow rate: 3 L/MIN (05/25/24 0600) Labs: CHEMISTRY: BUN, Creatinine, GFR Estimated, Sodium, Potassium, Chloride, Carbon Dioxide, Glucose, Calcium (see below for most recent value): Lab Results Component Value Date/Time BUN 8 05/24/2024 09:15 AM BUN 19 07/02/2020 02:20 PM CREAT 0.8 05/24/2024 09:15 AM CREAT 0.9 07/02/2020 02:20 PM GFRESTIMATED >60.0 07/02/2020 02:20 PM NA 139 05/24/2024 09:15 AM NA 139 07/02/2020 02:20 PM POTASSIUM 3.4 (L) 05/24/2024 09:15 AM POTASSIUM 5.1 07/02/2020 02:20 PM CL 104 05/24/2024 09:15 AM CL 99 07/02/2020 02:20 PM CO2 28 05/24/2024 09:15 AM CO2 30 07/02/2020 02:20 PM GLU 123 (H) 10/20/2019 06:23 AM CA 8.4 05/24/2024 09:15 AM CA 9.5 07/02/2020 02:20 PM COAGS: PT, INR (see below for three most recent values): Lab Results Component Value Date/Time INR 1.3 (H) 05/24/2024 09:15 AM INR 1.4 (H) 05/23/2024 11:33 PM INR >9.0 (HH) 05/17/2024 02:35 PM INR 6.9 05/10/2024 11:43 AM INR 3.0 04/05/2024 01:40 PM INR 4.7 03/22/2024 11:11 AM INR 0.98 08/25/2017 07:17 AM INR 1.01 02/25/2012 02:52 PM INR 1.00 10/27/2008 10:41 AM BLOOD COUNT: WBC, Hgb, Platelets (see below for most recent value): Lab Results Component Value Date/Time WBC 5.19 05/25/2024 06:03 AM WBC 3.34 (L) 02/02/2020 10:02 AM HGB 8.5 (L) 05/25/2024 06:03 AM HGB 13.9 02/02/2020 10:02 AM PLT 150 05/25/2024 06:03 AM PLT 134 (L) 02/02/2020 10:02 AM Imaging (focused): 1. Acute/subacute right parietal convexity subdural hematoma, approximately 7-mm. No midline shift or herniation. CONSULTS ORDERED: ADULT PHYSICAL THERAPY CONSULT IP ADULT OCCUPATIONAL THERAPY CONSULT IP CARE MANAGEMENT CONSULT IP GENERAL INTERNAL MEDICINE CONSULT IP GASTROENTEROLOGY CONSULT IP CARDIOLOGY CONSULT IP REFERRING PHYSICIAN: REF: [facility] PROVIDER: PCP: Ruth Brandon MD [address] [place] [address] / [place] [address] (office) [phone] (fax) Note: To contact a physician responsible for this patients hospital care, please call [facility] [phone]. documented in this encounter Discharge Instructions * Discharge Instr - AVS* Az Quick PA-C - 05/24/2024 4:19 PM EDT Discharge Date: 05/24/[address] Kahn of the department of Neurosurgery at [phone] during business hours for any questions or test results. For after-hours emergencies call [phone] and have the family nurse practitioner neurosurgery resident/PA paged. The information below provides you with the instructions and the list of medications you need to betaking following discharge from the hospital. If you have any questions, please ask before leaving.Please carry this letter with you when you see your doctor in the clinic. If you have questions, you can reach us at the numbers above. Brief summary of your inpatient care: You were admitted following spontaneous right parietal subdural hematoma. You were evaluated by physical and occupational therapies and recommended for home. Overall, you had an unremarkable course of hospitalization and were discharged to home in stable condition Your primary diagnosis at discharge was right parietal subdural hematoma Your doctors during this hospitalization included: Dr. Kahn, Dr. Persaud, Dr. Alfonso, Dr. Brandon Inpatient test results pending: None Operations & Procedures: None Complications: none significant Advance Directive Documented: Advance Directive Does the Patient have an Advance Directive? No Driving: Don't drive until you are off narcotics for one full week and can walk normally and firmlyapply the brake without pain Date you may return to work or school: Based on further instruction after you have seen your primary care physician See your primary care physician (Ruth Brandon MD) in 2 week(s). See Neurosurgery in 2 weeks. Hold all anticoagulation and antiplatelets for 2 weeks. These follow-up appointments have been scheduled or are in the process of being scheduled. If you have questions about your appointments, please call . When asked to state the name of the physician, please say "Hospital Discharge". Please follow up with your cardiology office within 2 weeks Hold anticoagulation for two weeks due to high risk of worsening your head bleed Ensure close outpatient follow up (ideally within 2 weeks post d/c) with Cardiology at [facility]. Outpatient commodity director can discuss risks and benefits of continuing anticoagulation with warfarin or switching to apixaban after the two week period * Care [facility] - AVS* Ezio Harper, RN - 05/25/2024 9:10 AM EDT It was a pleasure serving you during your stay. documented in this encounter Progress Notes * Brennon Gipson MD - 05/25/2024 9:40 AM EDT NEUROLOGICAL SURGERY PROGRESS NOTE [facility] [place] [address] Name: Eduarda Bond [place] [facility] A473/A Date: 05/25/2024 Time: 9:40 AM SUBJECTIVE: NAEO OBJECTIVE: Most recent vital signs: BP: 113 mmHg/51 mmHg (05/25/24 0755) Pulse: 75 (05/25/24 0755) Resp: 16 (05/25/24 0600) Temp: 37.28 C (05/25/24 0600) Temp Summary: Temp Min: 36.6 C (97.9 F) Max: 37.3 C (99.1 F) SpO2: 97 % (05/25/24627) O2 flow rate: 3 L/MIN (05/25/24599) Supplemental O2 Delivery: Room Air, None (05/25/24627) Vital signs over last 24 hours: Systolic BP: Most Recent Systolic BP Av.3 mmHg Min: 104 mmHg Max: 126 mmHg Temperature: Most Recent Temperature Av.9 C Min: 36.61 C Max: 37.28 C Pulse: Pulse Avg: Pulse Av.3 Min: 73 Max: 80 Respirations: Resp Av Min: 16 Max: 16 SpO2: SpO2 Av.8 % Min: 88 % Max: 99 % SpO2: SpO2 Av.8 % Min: 88 % Max: 99 % FiO2%: No data recorded ICP: No data found.CPP (adult): No data found.Intake Input/Output: (last 24 hours) Intake/Output Summary (Last 24 hours) at 05/25/2024 0940 Last data filed at 05/25/2024 0335 Gross per 24 hour Intake 438.69 ml Output -- Net 438.69 ml Neurologic Examination Awake, alert, oriented to person, place, time PERRL EOMI No facial droop No pronator drift TRIVEDI to command RUE 5/5 LUE 5/5 RLE 5/5 LLE 5/5 Sensation grossly intact LABS: Blood count: Lab Results Component Value Date/Time WBC 5.19 05/25/2024 06:03 AM WBC 3.34 (L) 02/02/2020 10:02 AM HGB 8.5 (L) 05/25/2024 06:03 AM HGB 13.9 02/02/2020 10:02 AM HCT 27.4 (L) 05/25/2024 06:03 AM HCT 43.1 02/02/2020 10:02 AM PLT 150 05/25/2024 06:03 AM PLT 134 (L) 02/02/2020 10:02 AM Coagulation studies: Lab Results Component Value Date/Time INR 1.3 (H) 05/24/2024 09:15 AM INR 6.9 05/10/2024 11:43 AM INR 0.98 08/25/2017 07:17 AM Chemistry: Lab Results Component Value Date/Time BUN 8 05/24/2024 09:15 AM BUN 19 07/02/2020 02:20 PM CREAT 0.8 05/24/2024 09:15 AM CREAT 0.9 07/02/2020 02:20 PM GFRESTIMATED >60.0 07/02/2020 02:20 PM NA 139 05/24/2024 09:15 AM NA 139 07/02/2020 02:20 PM POTASSIUM 3.4 (L) 05/24/2024 09:15 AM POTASSIUM 5.1 07/02/2020 02:20 PM CO2 28 05/24/2024 09:15 AM CO2 30 07/02/2020 02:20 PM GLU 123 (H) 10/20/2019 06:23 AM Imaging studies: My interpretation of: Repeat CTH this morning appears stable Problem list: Active Problems: PAF (paroxysmal atrial fibrillation) (HCC) Chronic anticoagulation Acute blood loss anemia AVM (arteriovenous malformation) of stomach, acquired with hemorrhage SDH (subdural hematoma) (HCC) Resolved Problems: * No resolved hospital problems. * CLINICAL HISTORY AND PLAN: Eduarda Bond is a 79 year old female patient with above cardiac hx transferred from [facility] for trace parafalcine SDH vs falx thickening after having a supratherapeutic INR > 9, since corrected. Q4 neurochecks Pt will have her anticoagulation adjusted as needed by her commodity director (reportedly would like to switch her to eliquis 2.5mg BID) Pt to follow up with outpatient commodity director for anticoagulation management GI consulted, appreciate their recs Pt is medically ready for discharge, will plan to discharge today Discussed with Dr. Criss Gipson MD Neurosurgery, PGY3 Associated attestation - Jaswinder Kahn MD, PhD - 05/25/2024 4:46 PM EDT I did not see the patient, but I have reviewed the resident/fellow physician documentation and was readily available on date of service. * Brennon Gipson MD - 05/24/2024 8:30 AM EDT NEUROLOGICAL SURGERY PROGRESS NOTE [address] [address] Name: Eduarda Bond [place] [facility] [id number] Date: 05/24/2024 Time: 8:30 AM SUBJECTIVE: INR 1.4 this morning. Repeat CTH this morning appears stable OBJECTIVE: Most recent vital signs: BP: 133 mmHg/67 mmHg (05/24/24704) Pulse: 80 (05/24/24704) Resp: 16 (05/24/24704) Temp: 37.39 C (05/24/24704) Temp Summary: Temp Min: 36.7 C (98.1 F) Max: 37.4 C (99.3 F) SpO2: 91 % (05/24/24704) O2 flow rate: Supplemental O2 Delivery: Room Air, None (05/24/24704) Vital signs over last 24 hours: Systolic BP: Most Recent Systolic BP Av mmHg Min: 133 mmHg Max: 133 mmHg Temperature: Most Recent Temperature Av.1 C Min: 36.72 C Max: 37.39 C Pulse: Pulse Avg: Pulse Av Min: 78 Max: 80 Respirations: Resp Av Min: 16 Max: 16 SpO2: SpO2 Av % Min: 91 % Max: 93 % SpO2: SpO2 Av % Min: 91 % Max: 93 % FiO2%: No data recorded ICP: No data found.CPP (adult): No data found.Intake Input/Output: (last 24 hours) Intake/Output Summary (Last 24 hours) at 05/24/2024 0830 Last data filed at 05/24/2024 0526 Gross per 24 hour Intake 240 ml Output -- Net 240 ml Neurologic Examination Awake, alert, oriented to person, place, time PERRL EOMI No facial droop No pronator drift TRIVEDI to command RUE 5/5 LUE 5/5 RLE 5/5 LLE 5/5 Sensation grossly intact LABS: Blood count: Lab Results Component Value Date/Time WBC 5.38 05/23/2024 11:33 PM WBC 3.34 (L) 02/02/2020 10:02 AM HGB 8.6 (L) 05/23/2024 11:33 PM HGB 13.9 02/02/2020 10:02 AM HCT 28.4 (L) 05/23/2024 11:33 PM HCT 43.1 02/02/2020 10:02 AM PLT 162 05/23/2024 11:33 PM PLT 134 (L) 02/02/2020 10:02 AM Coagulation studies: Lab Results Component Value Date/Time INR 1.4 (H) 05/23/2024 11:33 PM INR 6.9 05/10/2024 11:43 AM INR 0.98 08/25/2017 07:17 AM Chemistry: Lab Results Component Value Date/Time BUN 9 05/23/2024 11:33 PM BUN 19 07/02/2020 02:20 PM CREAT 0.9 05/23/2024 11:33 PM CREAT 0.9 07/02/2020 02:20 PM GFRESTIMATED >60.0 07/02/2020 02:20 PM NA 138 05/23/2024 11:33 PM NA 139 07/02/2020 02:20 PM POTASSIUM 3.5 05/23/2024 11:33 PM POTASSIUM 5.1 07/02/2020 02:20 PM CO2 25 05/23/2024 11:33 PM CO2 30 07/02/2020 02:20 PM GLU 123 (H) 10/20/2019 06:23 AM Imaging studies: My interpretation of: Repeat CTH this morning appears stable Problem list: Active Problems: * No active hospital problems. * Resolved Problems: * No resolved hospital problems. * CLINICAL HISTORY AND PLAN: Eduarda Bond is a 79 year old female patient with above cardiac hx transferred from [facility] for trace parafalcine SDH vs falx thickening after having a supratherapeutic INR > 9, since corrected. 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 Criss Gipson MD Neurosurgery, PGY3 Associated attestation - Jaswinder Kahn MD, PhD - 05/25/2024 8:33 AM EDT I did not see the patient, but I have reviewed the resident/fellow physician documentation and was readily available on date of service. documented in this encounter H&P Notes * Brennon Gipson MD - 05/23/2024 10:21 PM EDT NEUROLOGICAL SURGERY CONSULT [place] [facility] [address] Name: Eduarda Bond [place] [facility] [place]473[place][id number] Date: 05/23/2024 Time: 10:21 PM HISTORY OF PRESENT ILLNESS: Eduarda Bond is a 79 year old female with Hx breast ca s/p mastectomy, nonischemic cardiomyopathy, CHF s/p biventricular pacemaker, paroxysmal afib s/p biventricular ICD (2017) c/b right atrial thrombus (2022) on coumadin, presented to [facility] over the weekend due to noted bruising of her extremities and tongue, noted to have INR > 9, and CTH obtained there showed c/f trace parafalcine SDH. Pt was subsequently transferred [place] [facility] [place]. PAST MEDICAL HISTORY: Past Medical History: Diagnosis Date Yi's esophagus 03/09/2012 UPPER GI ENDOSCOPY DIAGNOSTIC performed by Uma Lin DO at [facility], path showsshort segment Barretts esophagitis repeat in 1 year Barretts esophagus 04/05/2013 UPPER GI ENDOSCOPY DIAGNOSTIC performed by Uma Lin DO at [facility], inflammation consistent with long segment barretts, repeat [...] OPEN performed by SRIKANTH NÚÑEZ [place] [facility] [place] LEFT HEART THRU SKIN 06/2000 Cardiac Catheterization, Left Heart COLONOSCOPY 1989 - COLONOSCOPY, DIAGNOSTIC (RECTUM) 01/30/09 repeat 10 yrs COLONOSCOPY, DIAGNOSTIC (RECTUM) 11/25/2018 diverticulosis, repeat 10 yrs/[facility] DILATION AND CURETTAGE (D&C) D&C Dr Ward EGD, FLEXIBLE, DIAGNOSTIC 03/09/2012 UPPER GI ENDOSCOPY DIAGNOSTIC performed [facility] DO [facility], path showsshort segment Barretts esophagitis repeat in 1 year EGD, FLEXIBLE, DIAGNOSTIC 04/05/2013 UPPER GI ENDOSCOPY DIAGNOSTIC performed by Uma Lin DO at [facility], inflammation consistent with long segment barretts, repeat egd in 3 years EGD, FLEXIBLE, DIAGNOSTIC 07/08/2016 Barretts, repeat 3 yrs/[facility] INSER TUNN ACC DEV;5 YRS/OLDER 02/22/08 INSERT TUNNELED CENTRAL VENOUS ACCESS WITH SUBQ PORT performed by SRIKANTH NÚÑEZ [place] [facility] LEFT VENTRICULAR PACING ELECTRODE, ADD-ON Left 08/25/2017 CS LEAD PLACEMENT WITH INITIAL DEVICE performed by Kamryn Espinoza DO at [facility] LIGATE/CUT OVIDUCT(S) MASTECTOMY, SIMPLE, COMPLETE 01/14/08 MASTECTOMY SIMPLE COMPLETE performed by SRIKANTH NÚÑEZ at [place] [facility] THORACOSTOMY TUBE W/ WATER SEAL 02/23/2008 TRANSLUM BALLOON ANGIOPLASTY OPEN/PERC W/IMAGE 1ST VEIN 08/25/2017 ANGIOPLASTY (EXCEPT DIALYSIS CIRCUIT) performed by Kamryn Espinoza DO at [facility] VENOGRAM EXTREMITY UNI-FLUOR 08/25/2017 IMAGING SUPERVISION & INTERPRETATION EXTREMITY VEIN performed by Kamryn Espinoza DO at [facility] SOCIAL HISTORY: Social History Socioeconomic History Marital status: Spouse name: Trace Number of children: 4 Years of education: Not on file Highest education level: Not on file Occupational History 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 Amiodarone HCl 200 MG Oral Tablet (Cordarone) Take one-half Tablet by mouth in the morning. Comirnaty 30 MCG/0.3ML Intramuscular Suspension Prefilled Syringe (COVID-19 mRNA Vaccine 12 years and above GigaCrete) Inject into a large muscle. Cefuroxime Axetil 500 MG Oral Tablet (Ceftin) Take 1 Tablet by mouth in the morning and 1 Tablet before bedtime. Do all this for 10 days. Levothyroxine Sodium 25 MCG Oral Tablet (Levoxyl) TAKE ONE TABLET BY MOUTH DAILY AT LEAST 30 MINUTES PRIOR TO FIRST MEAL OF THE DAY OR OTHER MEDICATIONS Metoprolol Succinate ER 25 MG Oral Tablet Extended Release 24 Hour (toPROL XL) Take 1 Tablet by mouth in the morning. Pantoprazole Sodium 40 MG Oral Tablet Delayed Release (Protonix) TAKE ONE TABLET BY MOUTH EVERY DAY Patient taking differently: 1 Tablet in the morning. Rosuvastatin Calcium 10 MG Oral Tablet (Crestor) TAKE ONE TABLET BY MOUTH EVERY DAY IN THE MORNING Entresto 24-26 MG Oral Tablet (sacubitril-valsartan 24-26 mg per tab) TAKE ONE TABLET BY MOUTH TWICE A DAY Furosemide 20 MG Oral Tablet (Lasix) TAKE ONE TABLET BY MOUTH EVERY DAY 5 DAYS PER WEEK, WITH AN EXTRA TABLET ON ALTERNATIVE DAYS IF NEEDED Triamcinolone Acetonide 0.1 % External Cream (Aristocort) Apply to areas of itchy rash on back, arms, and neck twice daily Amoxicillin 500 MG Oral Capsule (Amoxil) Take 4 capsules prior to appointment acetaminophen (TYLENOL) 500 MG Tablet Take 1 Tablet by mouth 2 times a day as needed (pain). albuterol (VENTOLIN HFA) 108 (90 BASE) MCG/ACT inhaler Inhale 2 Puffs by mouth every 6 hours as needed for Wheezing. VITAMIN D 2000 UNITS PO CAPS Take 1,000 Units by mouth in the morning. ASPIRIN 81 MG PO TABS Take 1 Tablet by mouth in the morning. CALCIUM 1250 MG PO TABS Take 1 Tablet by mouth in the morning. VITAMIN B-6 100 MG PO TABS Take 1 Tablet by mouth in the morning. ALLERGIES: Review of patient's allergies indicates: Allergen Reactions Adhesive Tape Other (Please comment) Welts, blisters Bee Stings Bee Venom Hives Iodine Hives Ivp Dye hives REVIEW OF SYSTEMS: Per HPI PHYSICAL EXAMINATION: Vital signs over last 24 hours: Systolic BP: No data recorded Temperature: No data recorded Pulse: Pulse Avg: No data recorded Respirations: No data recorded SpO2: No data recorded Neurologic Examination GCS 15 AOx3 CN2-12 grossly intact No pronator drift Motor strength 5/5 throughout Sensation grossly intact Bruising on extremities and tongue LABS: Chemistry: Lab Results Component Value Date/Time BUN 17 05/12/2024 10:23 AM BUN 19 07/02/2020 02:20 PM CREAT 1.1 (H) 05/12/2024 10:23 AM CREAT 0.9 07/02/2020 02:20 PM GFRESTIMATED >60.0 07/02/2020 02:20 PM NA 144 05/12/2024 10:23 AM NA 139 07/02/2020 02:20 PM POTASSIUM 4.1 05/12/2024 10:23 AM POTASSIUM 5.1 07/02/2020 02:20 PM CO2 30 05/12/2024 10:23 AM CO2 30 07/02/2020 02:20 PM GLU 123 (H) 10/20/2019 06:23 AM Coagulation studies: Lab Results Component Value Date/Time INR >9.0 (HH) 05/17/2024 02:35 PM INR 6.9 05/10/2024 11:43 AM INR 0.98 08/25/2017 07:17 AM Blood count: Lab Results Component Value Date/Time WBC 3.99 (L) 05/12/2024 10:23 AM WBC 3.34 (L) 02/02/2020 10:02 AM HGB 13.4 05/12/2024 10:23 AM HGB 13.9 02/02/2020 10:02 AM HCT 42.4 05/12/2024 10:23 AM HCT 43.1 02/02/2020 10:02 AM PLT 165 05/12/2024 10:23 AM PLT 134 (L) 02/02/2020 10:02 AM IMAGING STUDIES: My Interpretation of Current Images: CTH shows trace parafalcine SDH vs falx thickening Present on admission: There is no height or weight on file to calculate BMI. Patient Active Problem List Diagnosis Hypothyroidism Mitral [...] aorta (HCC) Atherosclerosis of coronary artery of [place] heart without angina pectoris Chronic atrial fibrillation (HCC) Nonischemic cardiomyopathy (HCC) IMPRESSION: Eduarda Bond is a 79 year old female patient with above cardiac hx transferred from [facility] for trace parafalcine SDH vs falx thickening after having a supratherapeutic INR > 9, since corrected. 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 Criss Gipson MD Neurosurgery, PGY3 Associated attestation - Jaswinder Kahn MD, PhD - 05/24/2024 6:59 PM EDT I saw and evaluated the patient today. I have reviewed the resident/fellow physician note and agree. documented in this encounter Consult Notes * Anthony Auguste, OTR/Gee - 05/24/2024 11:11 AM EDTAssociated Order(s): ADULT OCCUPATIONAL THERAPY CONSULT IP GENERAL EVALUATION - Occupational Therapy [address] [address] Name: Eduarda Bond [place] [facility] [place]473/A Date: 05/24/2024 Time: 11:12 AM Eduarda Bond is a 79 year old female. Patient Status: SORU (23 hr Surgical Overnight) Insurance: Payor: [employer] Plan: [employer] CLASSIC 1 PART D MC-LD Product Type: *No Product type* Patient Seen: at bedside, nursing cleared patient for therapy Patient Identified By: Name, ID Band and Date Diagnosis: SDH (05/24/24 104) Status of treatment: Evaluation completed (05/24/241041) Orders: OT evaluation and treatment (05/24/24 104) Weight Bearing Status: Weight bearing as tolerated (05/24/24 104) Precautions: Alarms;Falls;Safety (05/24/24 104) Total Treatment Time: 14 (05/24/24 104) Past Medical History: Past Medical History: Diagnosis Date Yi's esophagus 03/09/2012 UPPER GI ENDOSCOPY DIAGNOSTIC performed by Uma Lin DO at [facility], path showsshort segment Barretts esophagitis repeat in 1 year Barretts esophagus 04/05/2013 UPPER GI ENDOSCOPY DIAGNOSTIC performed by Uma Lin DO at [facility], inflammation consistent with long segment barretts, repeat [...] (AICD) 09/03/2017 Reflux esophagitis Past Surgical History: Past Surgical History: Procedure Laterality Date BX LYMPH NODE DEEP AXIL 01/14/08 BIOPSY LYMPH NODE DEEP AXILLARY OPEN performed by SRIKANTH NÚÑEZ [place] [facility] [place]TER[place] LEFT HEART THRU SKIN 06/2000 Cardiac Catheterization, Left Heart COLONOSCOPY 1989 - COLONOSCOPY, DIAGNOSTIC (RECTUM) 01/30/09 repeat 10 yrs COLONOSCOPY, DIAGNOSTIC (RECTUM) 11/25/2018 diverticulosis, repeat 10 yrs/[facility] DILATION AND CURETTAGE (D&C) D&C Dr [facility] EGD, FLEXIBLE, DIAGNOSTIC 03/09/2012 UPPER GI ENDOSCOPY DIAGNOSTIC performed by Uma Lin DO at [facility], path showsshort segment Barretts esophagitis repeat in 1 year EGD, FLEXIBLE, DIAGNOSTIC 04/05/2013 UPPER GI ENDOSCOPY DIAGNOSTIC performed [facility], inflammation consistent with long segment barretts, repeat egd in 3 years EGD, FLEXIBLE, DIAGNOSTIC 07/08/2016 Barretts, repeat 3 yrs/[facility] INSER TUNN ACC DEV;5 YRS/OLDER 02/22/08 INSERT TUNNELED CENTRAL VENOUS ACCESS WITH SUBQ PORT performed by SRIKANTH NÚÑEZ [place] [facility] LEFT VENTRICULAR PACING ELECTRODE, ADD-ON Left 08/25/2017 CS LEAD PLACEMENT WITH INITIAL DEVICE performed by Kamryn Espinoza DO at [facility] LIGATE/CUT OVIDUCT(S) MASTECTOMY, SIMPLE, COMPLETE 01/14/08 MASTECTOMY SIMPLE COMPLETE performed by SRIKANTH NÚÑEZ at [facility] THORACOSTOMY TUBE W/ WATER SEAL 02/23/2008 TRANSLUM BALLOON ANGIOPLASTY OPEN/PERC W/IMAGE 1ST VEIN 08/25/2017 ANGIOPLASTY (EXCEPT DIALYSIS CIRCUIT) performed by Kamryn Espinoza DO at [facility] VENOGRAM EXTREMITY UNI-FLUOR 08/25/2017 IMAGING SUPERVISION & INTERPRETATION EXTREMITY VEIN performed by Kamryn Espinoza DO at [facility] Social History/Disposition Lives with: Spouse (05/24/24 1058) Assistance available: Yes (05/24/24 1058) Dwelling type: Single story home (05/24/24 1058) Entry steps: (6 + 3) (05/24/24 1058) Inside steps: 10 - 15 (to basement) (05/24/24 1058) Bedroom location: 1st floor (05/24/24 1058) Bath location: 1st floor full bath (05/24/24 1058) Prior Level of Function Reported by: Patient (05/24/24 1042) Ambulation: Ambulatory without device (05/24/24 1042) Grooming: Independent (05/24/24 1042) Bathing: Independent (05/24/24 1042) Dressing: Independent (05/24/24 1042) Feeding: Independent (05/24/241041) Toileting: Independent (05/24/241041) Meal Prep: Independent (05/24/241041) Homemaking: Independent (05/24/241041) Shopping: Independent (05/24/241041) Driving: Yes (but typically drives) (05/24/241041) Durable Medical Equipment at home: Wheelchair;Straight cane;Shower chair;Rolling walker;Grab bars;Crutches;Bedside commode (05/24/241041) Subjective: Patient in chair upon arrival. Agreeable to OT session Pain: No complaints of pain Observations Consciousness: Alert (05/24/241041) Orientation: Oriented times 4 (05/24/241041) Psychosocial: Patient can communicate basic needs;Patient can converse in a social setting (05/24/241041) Sitting posture: Forward head;Rounded shoulders (05/24/241041) Standing posture: Forward head;Rounded shoulders (05/24/241041) Safety awareness: The Patient verbalizes insight of current deficits.;The Patient demonstrates carryover of insight during functional tasks. (05/24/241041) Other Findings Endurance: Fair (05/24/241041) Light touch sensation: LUE;RUE;Intact (05/24/241041) Coordination: LUE;RUE;Intact (05/24/241041) Current Functional Status: Bilateral Upper Extremity Range of Motion: WFL (05/24/241041) Strength Assessment: (BUE 4+/5 throughout) (05/24/241041) Self Care Grooming: Supervision (Please comment) (wash hands at sink) (05/24/241041) Toileting: Supervision (Please comment) (crystal-care, clothing mgmt) (05/24/241041) Dressing Lower Body: Minimal Assistance (to doff/don socks) (05/24/241041) Functional Ambulation Assistive Device: No device (05/24/241041) Distance in feet:: 100 (+15) (05/24/241041) Level of Assistance: Supervision (Please Comment) (05/24/241041) OT Transfers Sit-Stand: Supervision (Please comment) (05/24/241041) Stand-Sit: Supervision (Please comment) (05/24/241041) Toilet: Supervision (Please comment) (05/24/241041) Balance Sit (Static): Fair (05/24/241041) Sit (Dynamic): Fair (05/24/241041) Stand (Static): Fair (05/24/241041) Stand (Dynamic): Fair (05/24/241041) Alarm Status Patient positioned in: Chair (05/24/241041) With: Pressure pad alarm intact and functioning and call romo in reach (05/24/241041) Following session patient seated OOB in chair with chair alarm activated and cord plugged into call romo system. Patient and Family Goals: to get well and to return home Patient Education Education Topic: Role of OT;Plan of care goals (05/24/241041) Review of Precautions: Safety;Fall (05/24/241041) Method of Education: Verbalized to patient (05/24/241041) Education Provided to: Patient (05/24/241041) Response to Education: Receptive and agreeable to education (05/24/241041) Barriers to learning: Medical status (05/24/241041) Preferred learning method: Combination (05/24/241041) Treatment Provided: Evaluation Moderate Complexity 14 minutes - 13224: Patient was cooperative and pleasant during treatment session. Moderate complexity evaluation performed and 3-5 activity limitations were identified, including ADL deficit, functional mobility deficit, bed mobility deficit, decreased strength, decreased endurance, and impaired balance. Minimal or moderate modification of the functional task was necessary to complete the evaluation. Deficits Requiring O.T. Treatment: Deficits requiring O.T. treatment needs: ADL/self-care;Balance;Endurance;Functional mobility;Safety;Upper extremity strength (05/24/241041) Assessment: Patient was [place] [facility] [place] for SDH. Patient was cooperative and agreeable to participate in OT evaluation this date. Prior to admission patient was independent with ADLs/IADLs and mobility. During session patient demonstrates good and equal BUE strength. While seated in chair pt able to doff/don socks with Chang, with slight difficulty reaching b/l feet due to decreased flexibility. Per patient her will usually take her socks off, but she is able to don them. Sit/stand transfer completed from chair and toilet with supervision. Functional mobility performed at supervision level as well; no device required. Following session pt returned to recliner with all needs met. Currently, patients presents with deficits in ADLs, functional transfers and mobility, as well as decreased strength, endurance, balance and safety. Patient would benefit from continued OT services to improve independence in ADLs and functional mobility. When medically appropriate, Please consider home with post- acute care services which may include home health or outpatient therapy. The le mirian of care will be determined in collaboration with the patient, family/caregiver and care team members. Goals: Demonstrates Self-Care at: UB Bathing: modified independent LB Bathing: modified independent UB Dressing: modified independent to don gown/robe/shirt LB Dressing: modified independent to don socks/shoes/pants Grooming: independent Toileting: modified independent Demonstrates Bed Mobility at: Supine to sit: modified independent Sit to supine: modified independent Rolling left/right: modified independent Side-lying<>sit: modified independent Demonstrates balance at: Dynamic/Static Sitting balance: Fair+ Dynamic/Static Standing balance: Fair+ Transfers: Sit to Stand: modified independent Stand to Sit: modified independent Toilet: modified independent Functional Ambulation at modified independent with AD PRN Demonstrates standing/activity endurance at 20 minutes to increase participation in functional mobility and ADL tasks Increase Strength of B UEs 1/2 muscle grade Goal Time Frame: 6 visits Treatment Plan: Safety, Bed mobility training, Functional Ambulation, Transfer Training, Upper extremity strengthening, Balance activities, ADL training and Endurance Anticipated Frequency (on eval): 3 to 5 times per week (05/24/241041) AM-PAC Help From Another Person Eating Meals: None (05/24/241041) Help From Another Person Taking Care of Personal Grooming: A little (05/24/241041) Help From Another Person To Put On/Take Off Upper Body Clothing: A little (05/24/241041) Help From Another Person To Put On/Take Off Lower Body Clothing: A little (05/24/241041) Help From Another Person Toileting: A little (05/24/241041) Help From Another Person Bathing: A little (05/24/241041) OT AM-PAC Score: 19 (05/24/24 104) OT AM-PAC t-Scale Score: 40.22 (05/24/24 104) HLM (Highest Level of Mobility) Goal: Level 6 walk 10 steps or more (05/24/241057) A portion of this AM-PAC assessment not scored based on functional assessment; rather clinical decision making utilized based on current findings and/or prior level of function. Please refer to future AM-PAC calculations of functional ability as they become available. * Ava Rojas, RN - 05/24/2024 11:08 AM EDTAssociated Order(s): CARE MANAGEMENT CONSULT IP See note in Ancillary section. CM to follow during hospital course. Thanks * Alondra Roth, PT - 05/24/2024 10:58 AM EDTAssociated Order(s): ADULT PHYSICAL THERAPY CONSULT IP GENERAL EVALUATION - Physical Therapy [address] [address] Name: Eduarda Bond [place] [facility] [place]473/[id number] Date: 05/24/2024 Time: 1057 Eduarda Bond is a/an 79 year old female. Patient Status: SORU (23 hr Surgical Overnight) Insurance: Payor: [facility] [employer] Plan: [facility] [employer] CLASSIC 1 PART D MC-LD Product Type: *No Product type* Patient Seen: at bedside, nursing cleared patient for therapy Patient Identified By: Name, ID Band and Date Diagnosis: SDH (05/24/241057) Status of treatment: Evaluation completed (05/24/241057) Orders: PT evaluation and treatment;OOB (05/24/241057) Weight Bearing Status: Weight bearing as tolerated (05/24/241057) Precautions: Alarms;Falls;Safety (05/24/241057) Total Treatment Time--free text: 15 (05/24/241057) Past Medical History: Past Medical History: Diagnosis Date Yi's esophagus 03/09/2012 UPPER GI ENDOSCOPY DIAGNOSTIC performed by Uma Lin DO at [facility] [place], [facility] show[facility]ort segment Barretts esophagitis repeat in 1 year Barretts esophagus 04/05/2013 UPPER GI ENDOSCOPY DIAGNOSTIC [facility], inflammation consistent with long segment barretts, repeat [...] (AICD) 09/03/2017 Reflux esophagitis Past Surgical History: Past Surgical History: Procedure Laterality Date BX LYMPH NODE DEEP AXIL 01/14/08 BIOPSY LYMPH NODE DEEP AXILLARY OPEN performed by SRIKANTH NÚÑEZ [place] [facility] [place] LEFT HEART THRU SKIN 06/2000 Cardiac Catheterization, Left Heart COLONOSCOPY 1989 - COLONOSCOPY, DIAGNOSTIC (RECTUM) 01/30/09 repeat 10 yrs COLONOSCOPY, DIAGNOSTIC (RECTUM) 11/25/2018 diverticulosis, repeat 10 yrs/[facility] DILATION AND CURETTAGE (D&C) D&C Dr Ward EGD, FLEXIBLE, DIAGNOSTIC 03/09/2012 UPPER GI ENDOSCOPY DIAGNOSTIC performed by Uma Lin DO at [facility] [place], [facility] show[facility] segment Barretts esophagitis repeat in 1 year EGD, FLEXIBLE, DIAGNOSTIC 04/05/2013 UPPER GI ENDOSCOPY DIAGNOSTIC performed [facility] Lin DO at [facility], inflammation consistent with long segment barretts, repeat egd in 3 years EGD, FLEXIBLE, DIAGNOSTIC 07/08/2016 Barretts, repeat 3 yrs/[facility] INSER TUNN ACC DEV;5 YRS/OLDER 02/22/08 INSERT TUNNELED CENTRAL VENOUS ACCESS WITH SUBQ PORT performed by SRIKANTH NÚÑEZ [place] [facility] LEFT VENTRICULAR PACING ELECTRODE, ADD-ON Left 08/25/2017 CS LEAD PLACEMENT WITH INITIAL DEVICE performed by Kamryn Espinoza DO at [facility] LIGATE/CUT OVIDUCT(S) MASTECTOMY, SIMPLE, COMPLETE 01/14/08 MASTECTOMY SIMPLE COMPLETE performed by SRIKANTH NÚÑEZ at [place] [facility] THORACOSTOMY TUBE W/ WATER SEAL 02/23/2008 TRANSLUM BALLOON ANGIOPLASTY OPEN/PERC W/IMAGE 1ST VEIN 08/25/2017 ANGIOPLASTY (EXCEPT DIALYSIS CIRCUIT) performed by Kamryn Espinoza DO at [facility] VENOGRAM EXTREMITY UNI-FLUOR 08/25/2017 IMAGING SUPERVISION & INTERPRETATION EXTREMITY VEIN performed by Kamryn Espinoza DO at [facility] Subjective: Pt awake in chair, agreeable to PT. at bedside. Social History/Disposition Lives with: Spouse (05/24/241057) Assistance available: Yes (05/24/241057) Dwelling type: Single story home (05/24/241057) Entry steps: (6 + 3) (05/24/241057) Inside steps: 10 - 15 (to basement) (05/24/241057) Bedroom location: 1st floor (05/24/241057) Bath location: 1st floor full bath (05/24/241057) Prior Level of Function Reported by: Patient (05/24/241057) Ambulation: Ambulatory without device (05/24/241057) Devices at home: Wheelchair;Rolling walker;Crutches;Straight cane;Bedside commode (05/24/241057) Observations Consciousness: Alert (05/24/241057) Orientation: Oriented times 4 (05/24/241057) Psychosocial: Patient can communicate basic needs;Patient can converse in a social setting (05/24/241057) Other Findings: Yes (05/24/241057) Findings: Light touch sensation (05/24/241057) Light Touch Sensation Results: Intact;LLE;RLE (05/24/241057) Sitting Posture: Forward head;Rounded shoulders (05/24/241057) Standing Posture: Forward head;Rounded shoulders (05/24/241057) Pain: No complaints of pain Range of Motion Range of Motion: WFL (05/24/241057) Strength Assessment Strength Assessment: (4/5 B/L LE) (05/24/241057) Transfers Sit-Stand: Supervision (05/24/241057) Stand-Sit: Supervision (05/24/241057) Ambulation: Distance ambulated (feet): 15 ft + 100 ft Assistive Device: No device Assist: Supervision Balance Sit (Static): Fair (05/24/241057) Sit (Dynamic): Fair (05/24/241057) Stand (Static): Fair (05/24/241057) Stand (Dynamic): Fair (05/24/241057) Patient and or Family Goal(s): to get well and to return home Patient Education Review of Precautions: Safety;Fall (role of PT) (05/24/241057) Safety Awareness: Patient verbalizes insight of current deficits;Patient demonstrates carryover of insight during functional tasks;Patient can communicate basic needs (05/24/241057) Preferred learning method: Combination (05/24/241057) Barriers to learning: Medical Status (05/24/241057) Method of Education: Verbalized to patient;Patient demonstrated task (05/24/241057) Topic of Education: Safety with mobility, Goals/plan of care, and Fall prevention Method of Education: Verbal discussion and explanation provided to pt: verbalized understanding andor agreement of this information and demonstrated the exercise and or task Treatment Provided: Evaluation Moderate Complexity 15 minutes - [id number]: Patient was cooperative and pleasant during treatment session. Moderate complexity evaluation performed and 1-2 personal factorsor comorbidities were identified that will impact plan of care, including lives alone at home, cardiac history, and history of cancer. Patient presents with limitations in strength, bed mobility, transfers, gait, elevations, balance, endurance, and safety, which will impact plan of care. These limitations will be addressed by the goals set for this patient. Alarm Status Patient positioned in: Chair (05/24/241057) With: Pressure pad alarm intact and functioning and call romo in reach (cord plugged in) (05/24/241057) Cord plugged into call romo system. Treatment Status: Treatment at bedside (05/24/241057) Goals: Demonstrate Bed Mobility with: modified independent Demonstrate Sit to/from Stand Transfers with: modified independent Demonstrate Ambulation: least restrictive assistive device, 250 feet, modified independent Demonstrate Stairclimbing: Number of steps: 9 and modified independent Increase Strength of: B/L LE by 1/2-1 muscle grade Increase Balance: dynamic standing balance to fair+ Increase Safety: with all functional mobility Time Frame: 6-7 visits Assessment: Pt is 79 year old female presenting with SDH. Pt seen on this date for initial evaluation. Prior to admission, pt reports living in 1-story house with basement (6 + 3 steps to enter) withhusband who is able to assist if needed. Pt reports ambulating with no device at baseline. During session, pt was cooperative. Upon initial evaluation, pt was able to perform sit to stand transfers with supervision and ambulated 15 ft + 100 ft with supervision and no assistive device. Following session, pt positioned in chair with alarm and call romo in reach. Pt presents with deficits in strength, endurance, mobility, ambulation, and balance, all of which are currently negatively impacting pt's quality of life. Pt would continue to benefit from skilled PT services while inpatient at hospitalto reach established goals and address deficits. Please consider home with post-acute care serviceswhich may include home health or outpatient therapy. The level of care will be determined in collaboration with the patient, family/caregiver and care team members. All needs met. Deficits requiring P.T. treatment needs: Safety;Mobility;Balance;Weakness;Endurance;Lower extremitystrength (05/24/241057) Equipment Needs: Equipment needs: No device (TBD) (05/24/241057) Treatment Plan: Bed mobility training, Transfer training, Gait training, Elevation training, Strengthening exercises: B/L LE, Balance activities, and Educate on safety with functional mobility Anticipated Frequency (on eval): 3 to 5 times per week (05/24/241057) AM PAC Score with Stairs: 18 A portion of this AM-PAC assessment not scored based on functional assessment ; rather clinical decision making utilized based on current findings and/or prior level of function. Please refer to future AM-PAC calculations of functional ability as they become available. * Nirali Pena DO - 05/24/2024 9:27 AM EDTAssociated Order(s): GASTROENTEROLOGY CONSULT IP Images from the original note were not included. CONSULT - Gastroenterology [facility] [id number] Name: Eduarda Bond [place] [facility] A473/A Date: 05/24/2024 Time: 9:27 AM REQUESTING SERVICE: NSG REASON FOR CONSULT: GIB HPI: Eduarda Bond is a 79 year old female with pmhx of NICM, chronic LBBB, paroxysmal atrial fibrillation on amdiodarone, chronic diastolic/systolic HF s/p BiV ICD (2017) h/o right mural thrombus s/p coumadin 2022 (now resolved) breast carcinoma s/p mastectomy, chemo/XRT, who is evaluated for concern for GI bleeding. Per history, patient presented to [facility] this weekend for evaluation of diffuse ecchymosis in the setting of supratherapeutic INR 9.0. Subsequent CT head was concerning parafalcine SDH necessitating transfer [place] [facility] for evaluation by NSGY. While at [facility] the patient underwent upper endoscopy for evaluation of melanic stools and anemia 6.8 s/p 2 units PRBC. Upper EGD was notable for two non bleeding angioectasia s/p APC therapy. GI is consulted for evaluation of this anemia. The patient was seen at bedside, has not had a documented stool in the last 36 hours. Otherwise, has not required further PRBC infusion. INR is improved to 1.3 and she is otherwise HDS. Denies NSAID use, heavy ETOH. Never smoker. HISTORY: Past Medical History: Past Medical History: Diagnosis Date Yi's esophagus 03/09/2012 UPPER GI ENDOSCOPY DIAGNOSTIC performed by Uma Lin DO at [facility] [place], path showsshort segment Barretts esophagitis repeat in 1 year Barretts esophagus 04/05/2013 UPPER GI ENDOSCOPY DIAGNOSTIC performed [facility] DO [facility], inflammation consistent with long segment barretts, repeat [...] (AICD) 09/03/2017 Reflux esophagitis Past Surgical History: Past Surgical History: Procedure Laterality Date BX LYMPH NODE DEEP AXIL 01/14/08 BIOPSY LYMPH NODE DEEP AXILLARY OPEN performed by SRIKANTH NÚÑEZ [place] [facility] [place]TER[place] LEFT HEART THRU SKIN 06/2000 Cardiac Catheterization, Left Heart COLONOSCOPY 1989 - ok COLONOSCOPY, DIAGNOSTIC (RECTUM) 01/30/09 repeat 10 yrs COLONOSCOPY, DIAGNOSTIC (RECTUM) 11/25/2018 diverticulosis, repeat 10 yrs/[facility] DILATION AND CURETTAGE (D&C) D&C Dr Ward EGD, FLEXIBLE, DIAGNOSTIC 03/09/2012 UPPER GI ENDOSCOPY DIAGNOSTIC performed [facility] Lin DO at [facility], path showsshort segment Barretts esophagitis repeat in 1 year EGD, FLEXIBLE, DIAGNOSTIC 04/05/2013 UPPER GI ENDOSCOPY DIAGNOSTIC performed by Uma Lin DO at [facility], inflammation consistent with long segment barretts, repeat egd in 3 years EGD, FLEXIBLE, DIAGNOSTIC 07/08/2016 Barretts, repeat 3 yrs/[facility] INSER TUNN ACC DEV;5 YRS/OLDER 02/22/08 INSERT TUNNELED CENTRAL VENOUS ACCESS WITH SUBQ PORT performed by SRIKANTH NÚÑEZ [place] [facility] LEFT VENTRICULAR PACING ELECTRODE, ADD-ON Left 08/25/2017 CS LEAD PLACEMENT WITH INITIAL DEVICE performed by Kamryn Espinoza DO at [facility] LIGATE/CUT OVIDUCT(S) MASTECTOMY, SIMPLE, COMPLETE 01/14/08 MASTECTOMY SIMPLE COMPLETE performed by SRIKANTH NÚÑEZ at [place] [facility] THORACOSTOMY TUBE W/ WATER SEAL 02/23/2008 TRANSLUM BALLOON ANGIOPLASTY OPEN/PERC W/IMAGE 1ST VEIN 08/25/2017 ANGIOPLASTY (EXCEPT DIALYSIS CIRCUIT) performed by Kamryn Espinoza DO at [facility] VENOGRAM EXTREMITY UNI-FLUOR 08/25/2017 IMAGING SUPERVISION & INTERPRETATION EXTREMITY VEIN performed by Kamryn Espinoza DO at [facility] Social History: Social History Tobacco Use Smoking status: Never Smokeless tobacco: Never Vaping Use Vaping status: Never Used Substance Use Topics Alcohol use: Not Currently Comment: Rare glass of wine Drug use: No Family History: Family History Problem Relation Name Age of Onset Breast Cancer Sister Heart Disorder Father [place] Heart Disorder Sister MVP Hypertension Mother Cancer Brother thyroid Cancer Brother brain Other (skin disorders) Brother denies melanoma or other skin disorders Allergies: Adhesive tape, Bee stings, Bee venom, Iodine, and Ivp dye ROS: ROS per HPI, all other systems negative. PHYSICAL EXAMINATION: Most Recent Vital Signs: BP: 129 mmHg/62 mmHg (05/24/24 0848) Pulse: 78 (05/24/24 0848) Resp: 16 (05/24/24704) Temp: 37.39 C (05/24/24704) Temp Summary: Temp Min: 36.7 C (98.1 F) Max: 37.4 C (99.3 F) SpO2: 91 % (05/24/24704) O2 flow rate: Supplemental O2 Delivery: Room Air, None (05/24/24704) Vital Signs Last 24 Hours: Systolic BP: Most Recent Systolic BP Av.7 mmHg Min: 129 mmHg Max: 133 mmHg Temperature: Most Recent Temperature Av.1 C Min: 36.72 C Max: 37.39 C Pulse: Pulse Av.7 Min: 78 Max: 80 Respirations: Resp Av Min: 16 Max: 16 SpO2: SpO2 Av % Min: 91 % Max: 93 % GENERAL: wd/wn, non toxic appearance HEENT: Moist mucous membranes, clear conjunctiva bilaterally, EOMI CARDIO: non tachycardiac, regular PULM: good airway movement, no wheezing, rales or rhonchi ABDOMEN: soft ntnd EXTREMITIES: no pedal edema SKIN: warm, dry, intact, normal pallor VASCULAR: 2+ dorsalis pedis pulses NEURO: alert, oriented, answers questions appropriately, moving all extremities with no obvious focality LABS: Labs reviewed. Lab results within last 7 days (see chart for full results) Units 05/24/24 0915 05/23/24 2333 HGB g/dL 8.4* 8.6* HCT % 27.2* 28.4* WBC K/uL 4.49 5.38 PLT K/uL 151 162 Endoscopy 05/22/24 at [facility] IMPRESSION: Eduarda Bond is a(n) 79 year old female with pmhx as noted above transferred from [facility] for eval by NSGY team for eval of parafalcine hemorrhage in the setting of acute anemia and supratherapeutic INR. Hospital course c/b by melanic stools and acute anemia 6.8 (baseline 12) requiring PRBC transfusion x 2. Upper endoscopy completed at [facility] on 05/22 details non bleeding angioectasia s/pAPC. Since admission, INR has normalized and patient's hb is stable at 8.6 with no subsequent bleeding/bowel movement to prove ongoing bleeding. She is otherwise hemodynamically unstable. It would not be uncommon to see continued dark bowel movements after recent bleeding but patient states her last bowel movement on Monday 05/21. RECOMMENDATIONS/PLAN: - continue PPI twice daily, can transition to oral twice daily - do not recommend endoscopic interventions at this time given stability - continue to trend CBC - agree with cardiology consultation to review necessity to AC given SDH vs pAF history (mural thrombus resolved) GI will sign off, please page with any further questions, concerns or if signs of active GI bleeding. I have discussed the case with my attending, Dr Thanh Brandon. Associated attestation - Thanh Brandon DO - 05/24/2024 2:22 PM EDT I saw and evaluated the patient today. I have reviewed the resident/fellow physician note and agree. I have personally reviewed the imaging, labs, and endoscopies myself today. * Yony Joy, - 05/24/2024 9:22 AM EDTAssociated Order(s): CARDIOLOGY CONSULT IP CONSULT - Cardiology [facility] [id number] Name: Eduarda Bond [place] [facility] A473/A Date: 05/24/2024 Time: 9:22 AM REQUESTING SERVICE: Neurosurgery REASON FOR CONSULT: "Mural thrombus with supratherapeutic INR on Coumadin with spontaneous bleeding. Please evaluate" HPI: 79 YO F admitted with supratherapuetic INR and SDH vs falx thickening in the setting of supratherapeutic INR >9. Cardiology consulted for guidance on anticoagulation PMH includes: Paroxysmal atrial fibrillation on warfarin H/o RA thrombus (09/2022, resolved with warfarin) Nonischemic cardiomyopathy S/p GROCERY CADDY-D (implanted 2017) Patient presented to [facility] due to bruising on her arms and tongue. Found to have supratherapeutic INR >9 on admission. AC was reversed. Transferred to [facility] for further management due to us having a neurosurgical service. Unclear cause of patient developing supratherapeutic INR. Currently on Neurosurgery service who is managing her potential intracrania l hemorrhage non operatively. Prior to transfer to [facility], transthoracic echocardiogram was performed at OSH which, per the report, shows no evidence of right atrial thrombus. Right atrial thrombus is known to have been resolved per review of patient's most recent outpatient Cardiology notes 05/12/2024. Patient reports having a headache at the time of my exam. No other complaints. Denies: Chest pain, palpitations, shortness of breath PAST MEDICAL HISTORY: Past Medical History: Diagnosis Date Yi's esophagus 03/09/2012 UPPER GI ENDOSCOPY DIAGNOSTIC performed by Uma Lin DO at [facility] [place], [place] showsshort segment Barretts esophagitis repeat in 1 year Barretts esophagus 04/05/2013 UPPER GI ENDOSCOPY DIAGNOSTIC performed by Uma Lin DO at [facility] [place], inflammation consistent with long segment barretts, repeat egd in 3 years Breast cancer (HCC) 01/14/2008 right breast with mastectomy Chronic atrial fibrillation (HCC) 12/29/2023 HTN, goal below 140/90 Hypothyroidism Left bundle branch block Malignant neoplasm of lower outer quadrant of female breast 12/13/2007 of positive lymph nodes Menopause Mitral valve disorder MVP Presence of automatic cardioverter/defibrillator (AICD) 09/03/2017 Reflux esophagitis PAST SURGICAL HISTORY: Past Surgical History: Procedure Laterality Date BX LYMPH NODE DEEP AXIL 01/14/08 BIOPSY LYMPH NODE DEEP AXILLARY OPEN performed by SRIKANTH NÚÑEZ [place] [facility] CATHETERIZE LEFT HEART THRU SKIN 06/2000 Cardiac Catheterization, Left Heart COLONOSCOPY 1989 - COLONOSCOPY, DIAGNOSTIC (RECTUM) 01/30/09 repeat 10 yrs COLONOSCOPY, DIAGNOSTIC (RECTUM) 11/25/2018 diverticulosis, repeat 10 yrs/[facility] DILATION AND CURETTAGE (D&C) D&C Dr Ward EGD, FLEXIBLE, DIAGNOSTIC 03/09/2012 UPPER GI ENDOSCOPY DIAGNOSTIC performed by Uma Lin DO at [facility] [place] showsshort segment Barretts esophagitis repeat in 1 year EGD, FLEXIBLE, DIAGNOSTIC 04/05/2013 UPPER GI ENDOSCOPY DIAGNOSTIC performed by Uma Lin DO at [facility] [place], inflammation consistent with long segment barretts, repeat egd in 3 years EGD, FLEXIBLE, DIAGNOSTIC 07/08/2016 Barretts, repeat 3 yrs/[facility] INSER TUNN ACC DEV;5 YRS/OLDER 02/22/08 INSERT TUNNELED CENTRAL VENOUS ACCESS WITH SUBQ PORT performed by SRIKANTH NÚÑEZ at [place] [facility] LEFT VENTRICULAR PACING ELECTRODE, ADD-ON Left 08/25/2017 CS LEAD PLACEMENT WITH INITIAL DEVICE performed by Kamryn Espinoza DO at [facility] LIGATE/CUT OVIDUCT(S) MASTECTOMY, SIMPLE, COMPLETE 01/14/08 MASTECTOMY SIMPLE COMPLETE performed by SRIKANTH NÚÑEZ at [place] [facility] THORACOSTOMY TUBE W/ WATER SEAL 02/23/2008 TRANSLUM BALLOON ANGIOPLASTY OPEN/PERC W/IMAGE 1ST VEIN 08/25/2017 ANGIOPLASTY (EXCEPT DIALYSIS CIRCUIT) performed by Kamryn Espinoza DO at [facility] VENOGRAM EXTREMITY UNI-FLUOR 08/25/2017 IMAGING SUPERVISION & INTERPRETATION EXTREMITY VEIN performed by Kamryn Espinoza DO at [facility] FAMILY HISTORY: Family History Problem Relation Name Age of Onset Breast Cancer Sister Heart Disorder Father [place] Heart Disorder Sister MVP Hypertension Mother Cancer Brother thyroid Cancer Brother brain Other (skin disorders) Brother denies melanoma or other skin disorders SOCIAL HISTORY: Social History Tobacco Use Smoking status: Never Smokeless tobacco: Never Vaping Use Vaping status: Never Used Substance Use Topics Alcohol use: Not Currently Comment: Rare glass of wine Drug use: No ALLERGIES: Adhesive tape, Bee stings, Bee venom, Iodine, and Ivp dye ROS: reviewed and otherwise negative aside from as stated in HPI PHYSICAL EXAMINATION: Most Recent Vital Signs: BP: 129 mmHg/62 mmHg (05/24/24847) Pulse: 78 (05/24/24847) Resp: 16 (05/24/24704) Temp: 37.39 C (05/24/24704) Temp Summary: Temp Min: 36.7 C (98.1 F) Max: 37.4 C (99.3 F) SpO2: 91 % (05/24/24704) O2 flow rate: Supplemental O2 Delivery: Room Air, None (05/24/24704) Vital Signs Last 24 Hours: Systolic BP: Most Recent Systolic BP Av.7 mmHg Min: 129 mmHg Max: 133 mmHg Temperature: Most Recent Temperature Av.1 C Min: 36.72 C Max: 37.39 C Pulse: Pulse Av.7 Min: 78 Max: 80 Respirations: Resp Av Min: 16 Max: 16 SpO2: SpO2 Av % Min: 91 % Max: 93 % General Exam: General: NAD resting comfortably, awake and alert Head and face: atraumatic, normocephalic Eyes: normal lids, nonicteric sclera, no conjunctival injection Respiratory: Non-labored breathing, CTAB, no adventitious breath sounds Cardiovascular: regular rate and rhythm, S1 and S2 appreciated, no r/g/m Peripheral vascular: cap refill <2 seconds, Radial 2/4 LABS: Latest Reference Range & Units 05/17/24 14:35 05/23/24 23:33 05/24/24 09:15 INR 0.8 - 1.2 >9.0 (HH) 1.4 (H) 1.3 (H) (HH): Data is critically high (H): Data is abnormally high IMPRESSION and PLAN: 79 YO F admitted with supratherapuetic INR and SDH vs falx thickening in the setting of supratherapeutic INR >9. Cardiology consulted for guidance on anticoagulation. Pertinent PMH as outlined in HPI. Recommendations by problem as follows: Paroxysmal atrial fibrillation on warfarin NICM S/p GROCERY CADDY-D H/o RA thrombus (resolved)\\ Patient was not seem to understand why she was still on warfarin. RA thrombus is known to be resolved and this was redemonstrated on TTE at OSH prior to transfer (report reviewed). The current indication for AC is paroxysmal atrial fibrillation. Given concern for intracranial hemorrhage, it is certainly reasonable to hold anticoagulation at this time. Do not need to resume anticoagulation this admission Ensure close outpatient follow up (ideally within 1-2 weeks post d/c) with Cardiology at [facility]. Outpatient commodity director can discuss risks and benefits of continuing anticoagulation with warfarin or switching to apixaban Pt was seen, examined, and discussed with attending physician Dr. Alfonso. Please see final attestation for any additional recommendations. Cardiology will sign off at this time. Please reach out with any additional questions or concerns This chart was completed in part utilizing [employer]ognition Software. Grammatical errors, random word insertions, pronoun errors, and incomplete sentences are an occasional consequence of this system due to software limitations, ambient noise, and hardware issues. Any formal questions or concerns about the content, text, or information contained within the body of this dictation should be directly addressed to the physician for clarification. Associated attestation - Knig Alfonso DO - 05/24/2024 12:44 PM EDT I saw and evaluated the patient today. I have reviewed the resident/fellow physician note and agree. Agree with the trainee's note. Recommend following up with primary commodity director for appropriate timing for anticoagulation. Recommend implementation of Eliquis instead of warfarin. * William Persaud MD - 05/24/2024 8:20 AM EDTAssociated Order(s): General Internal Medicine Consult IP [facility] A473/A General Internal Medicine Consult IP Consult performed by: William Persaud MD Consult ordered by: Samantha Guillen DO REASON FOR CONSULT: "Pt has black stools, please evaluate, also please comment on the mural thrombus, thank you" REQUESTOR OF CONSULT: Neurosurgery HPI: Eduarda Bond is a 79 year old female with PMH significant for systolic CHF with normalization of EF after biventricular pacemaker (2018), Hx of right atrial thrombus (10/03/2022) likely associated with pacemaker lead which resolved on warfarin (not seen on echo 02/23/2023), atrial fibrillation on warfarin, hypothyroidism, HTN, GERD who was transferred from [facility] for suspected acute subdural hematoma in the setting of supratherapeutic INR greater 9. Hospital medicine consulted regarding recommendations for anticoagulation as well as evaluation suspected melena. Patient states she had routine blood work done that showed an INR greater than 6. She developed bruising on her arms and her tongue was purple. She denies any falls or any type of trauma. Denies any change in her diet. She was admitted to [facility] with INR greater than 9. Patient describes dark stools and had an EGD done during which she was told she had 2 areas of bleeding that were burnt to stopped the bleeding. She received 2 blood transfusions. Patient has a history of GERD. Does not take any NSAIDs other than a baby aspirin. Has only had a colonoscopy once at age 64. She reported a headache for which she had a head CT done which showed the concern for subdural hematoma. Patient reports Cardiology was following her and recommended switching to Eliquis at somepoint. Since arrival to the hospital last night patient has not had a bowel movement. Denies any new weakness or numbness tingling, or other stroke-like symptoms. Denies significant abdominal pain. Patient denies history of diabetes or stroke or vascular disease. Prior to this admission denies any prior history of GI bleed. Per transfer center notes, hemoglobin was 6.5 and patient received 10 of vitamin K. EGD was reportedly done at [facility] prior to transfer. Subjective Patient's past history, medications, and allergies were reviewed. Objective Physical Exam Most Recent Vital Signs: BP: 133 mmHg/67 mmHg (05/24/24704) Pulse: 80 (05/24/24704) Resp: 16 (05/24/24704) Temp: 37.39 C (05/24/24704) Temp Summary: Temp Min: 36.7 C (98.1 F) Max: 37.4 C (99.3 F) SpO2: 91 % (05/24/24704) O2 flow rate: Supplemental O2 Delivery: Room Air, None (05/24/24704) BP: 109 mmHg/67 mmHg (05/24/24 140) Pulse: 78 (05/24/24 1408) Resp: 16 (05/24/241407) Temp: 36.72 C (05/24/241407) Temp Summary: Temp Min: 36.7 C (98.1 F) Max: 37.4 C (99.3 F) SpO2: 99 % (05/24/241407) O2 flow rate: Supplemental O2 Delivery: Room Air, None (05/24/241407) Most Recent Systolic BP Av.2 mmHg Min: 109 mmHg Max: 133 mmHg Most Recent Temperature Av C Min: 36.72 C Max: 37.39 C Pulse Av.8 Min: 78 Max: 80 Resp Av Min: 16 Max: 16 SpO2 Av.5 % Min: 91 % Max: 99 % General: sitting up eating breakfast, no acute distress CV: regular rate & rhythm, no murmur Pulm: non-labored, clear to auscultation bilaterally without wheezes/crackles/rhonchi GI: soft, non-tender, non-distended, no rigidity or guarding Ext: warm & well-perfused, no edema Skin: bruising bilateral upper arms, some bruising of tongue Neuro: alert, normal speech & comprehension Lines/Drains/Airways: Peripheral Line Left Hand 22 Gauge (Active) Number of days: 1 Peripheral Line Left;Lower;Posterior Arm 22 Gauge (Active) Number of days: 1 Peripheral Line Anterior;Left 22 Gauge (Active) Number of days: 1 STUDIES: Encounter Orders Labs and other studes reviewed with pertinent findings noted below: INR >9 -> 1.4 Hgb 8.6 (13-14) Echocardiogram February 23, 2023 The qualitative LV [...] dated 10/03/2022, no mobile lesion is visualized Assessment and Plan IMPRESSION: Active Problems: * No active hospital problems. * Resolved Problems: * No resolved hospital problems. * Eduarda Bond is a 79 year old female with PMH significant for systolic CHF with normalization of EF after biventricular pacemaker (2017), Hx of right atrial thrombus (10/03/2022) likely associated with pacemaker lead which resolved on warfarin (not seen on echo 02/23/2023), atrial fibrillation on warfarin, hypothyroidism, HTN, GERD who was transferred from [facility] for suspected acute subdural hematoma in the setting of supratherapeutic INR greater 9. Hospital medicine consulted regarding recommendations for anticoagulation as well as evaluation suspected melena. RECOMMENDATIONS: Melena 2/2 upper GI bleed in s/o supratherapeutic INR Acute blood loss anemia S/P EGD with two areas of bleeding identified Recommend repeat CBC, type & screen, INR Recommend starting protonix 40 mg IV BID Recommend GI consult A-fib previously on warfarin Hx of R atrial thrombus (resolved on repeat TTE) Systolic CHF with recently normalized LVEF Agree with holding warfarin in the setting of subdural hematoma Patient should be resumed on anticoagulation at some point given chads Vasc score of 5 (CHF, hypertension, age, female gender) - patient states Cardiology had discussed with her at [facility] switching to Eliquis HEAD MECHANIC Amiodarone, Entresto, metoprolol Recommend Cardiology consult regarding management of long-term anticoagulation I spent a total of 60 minutes coordinating, documenting, and providing care for this patient excluding time spent in the performance of separately billed services or time spent by another provider/QHP. documented in this encounter Nursing Notes * An Moeller RN - 05/23/2024 10:44 PM EDT Dual Licensed Skin Assessment completed by An Reilly RN and Rosalie Salas RN. The patient is/has a N/A Skin Breakdown (includes non blanchable erythema): No Patient has generalized bruising; mainly on BUE and tongue. 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 documented in this encounter Miscellaneous Notes * Care Plan - Uma Juares RN - 05/25/2024 2:22 PM EDT Clinical Goal(s): Patient will remain free from injury for duration of shift (05/25/24 0800) Possible barriers to meeting goal(s)/advancing plan of care: Weakness Stability of the patient: Moderately stable - low risk of patient condition declining or worsening Summary regarding today's goal(s): Met: Met Recommendations: Continue to implement safety precautions * Ancillary Progress Note - Ezio Harper RN - 05/25/2024 9:09 AM EDT CARE MANAGEMENT - ADULT DISCHARGE [place] [facility] [address] Name: Eduarda Bond [place] [facility]473[facility]A Date: 05/25/2024 Time: 9:09 AM The following coordination of care and discharge plan has been coordinated with the care team, patient, family and/or caregiver according to the patients needs and preferences. Discharge Discharge Second Notice Important Message from Medicare delivered: Not Applicable (05/24/241106) Was Caregiver/Family/Facility contacted regarding discharge: Yes (05/24/241106) Discharge Transportation: Personal Vehicle;Family/Friends drive (05/24/241106) Date of scheduled discharge transportation: 05/25/24 (05/25/24899) Patient declined post-hospital transition of care recommendation: N/A (05/24/241106) Final Discharge Plan (Complete only at time of Discharge): Home - Self Care (05/25/24899) Narrative: Patient to be discharged to home with no needs identified at this time. Family will provide transportation. Discharge destination time-out called during BOOST rounds, all parties agreeablewith transition plan of care. * Care Plan - An Moeller RN - 05/25/2024 2:13 AM EDT Clinical Goal(s): patient will be free of falls this shift (05/24/24 0911) Possible barriers to meeting goal(s)/advancing plan of care: Need to use walker, hold onto furniture Stability of the patient: Moderately stable - low risk of patient condition declining or worsening Summary regarding today's goal(s): Met: free of falls this shift Recommendations: Hourly rounding, non-slip footwear, call romo/belongings within reach, bed/chair alarmed/at low level, walker * Ancillary Progress Note - Kirsten Lopez Chaplain - 05/24/2024 6:28 PM EDT PROGRESS NOTE - Spiritual Care Contact Information [facility] [address] Name: Eduarda Bond [place] [facility] A473/A Date: 05/24/2024 Time: 6:28 PM Shinto: Scientology [10] Muslim Affiliations: REASON FOR VISIT: request REQUEST RECEIVED FROM: patient VISIT LENGTH: 12 Minutes REQUEST FACTORS (Nature of Situation): Initial Visit FOCUS OF CARE: Patient SPIRITUAL ASSESSMENT: Tracy or Belief System: Did not identify Most Important Need(s) / Concern(s): Did not identify Sense of Community and/or Muslim Affiliation: Did not identify Addresses need(s)/concerns(s) and/or fabiano through: Gratefulness SPIRITUAL CARE PROVIDED: Driver Education Instructor addressed needs/concerns and/or coping through: Facilitating Temple Sacraments Holy Communion and Anointing of the Sick REFERRAL TO: [place] [place] [facility] OUTCOMES: [place] ANNOTATION: On request visit, offered prayer, Holy Communion, words of encouragement, and anointed the patient. She was grateful for the visit. * Care Plan - Uma Juares RN - 05/24/2024 1:05 PM EDT Clinical Goal(s): Patient will remain free from injury for duration of shift (05/24/24 0800) Possible barriers to meeting goal(s)/advancing plan of care: Weakness Stability of the patient: Moderately stable - low risk of patient condition declining or worsening Summary regarding today's goal(s): Met: Met Recommendations: Continue to implement safety precautions * Ancillary Progress Note - Ava Rojas RN - 05/24/2024 11:08 AM EDT CARE MANAGEMENT - ADULT INITIAL SCREENING [facility] [address] Name: Eduarda Bond [place] [facility] A473/A Date: 05/24/2024 Time: 11:08 AM Discussed patient with the interdisciplinary care team. This Alumni Coordinator performed a chart review and met with Eduarda at bedside to complete admission screen and assessed needs for transition planning. The resident care coordinator role and services were explained and emotional support was provided. Chief Complaint: No chief complaint on file. Prior Living Arrangements What was your living situation prior to admission/observation?: Independently;With Spouse () Living Quarters: House (05/24/241105) Number of steps to enter living quarters:: 10-14 (05/24/241105) Do you have serious difficulty walking or climbing stairs? (5 years old or older): No (05/23/242235) History of falling: No (05/24/2499) Prior Level of Functioning Describe the patient's ability prior to admission/observation to perform ADLs: Performs independently (05/24/241105) Describe the patient's mobility status prior to admission: Patient ambulates independently (05/23/242311) Patient uses assistive device: Yes (05/24/241105) If yes, choose:: Walker;Cane;Wheelchair (05/24/241105) Caregiver Information Patient Contacts Name Relation Home Work Mobile Trace Bond Spouse [phone] Anthony Worrell Adult Child [phone] Risk Stratification/Psychosocial/Care Gaps Risk Stratification Psycho Social / Medical Concerns Identified: Multiple Comorbidities;Adjustment to illness/injury;New serious diagnosis (05/24/241105) Accessed Channing Homely to connect patients to social care resources: No (05/24/241105) OBRA or OPTIONS needed for placement: No (05/24/241105) Readmission Risk Score: 10.87 (05/24/24 0800) AM-PAC Score With Stairs : 18 (05/24/24 1058) Prior to Admission Services Services Prior to Admission HEAD MECHANIC Services (Services received within the last 30 days with exception, Psych within last two years): N/A (05/24/241105) [place] Dept. of Aging (PDA) Waiver Program: N/A (05/24/241105) HEAD MECHANIC Transportation (Services received within the last 30 days): Family/Friends Personal Vehicle;Patient drives self (05/24/241105) Outpatient Alumni Coordinator: No care seal delivery vehicle team technician to display Patient/Family Expectations: Eduarda lives with her spouse in a 1 story home. Has a walker, cane, wheelchair but typically does not use at home. She drives and so does her spouse. No O2 or CPAP use. For further screening information, please refer to the Care Management flow document. * Ancillary Progress Note - Dallas Granados Chaplain - 05/24/2024 10:29 AM EDT PROGRESS NOTE - Spiritual Care Contact Information [address] [address] Name: Eduarda Bond [place] [facility]473[facility]A Date: 05/24/2024 Time: 10:29 AM Shinto: Scientology [10] Muslim Affiliations: REASON FOR VISIT: request REQUEST RECEIVED FROM: staff member - Name: Brittney REQUEST FACTORS (Nature of Situation): Request for: [place] [place] [employer] FOCUS OF CARE: Patient SPIRITUAL ASSESSMENT: Tracy or Belief System: Scientology Most Important Need(s) / Concern(s): Did not identify Sense of Community and/or Muslim Affiliation: Scientology Addresses need(s)/concerns(s) and/or fabiano through: Did not identify SPIRITUAL CARE PROVIDED: Driver Education Instructor addressed needs/concerns and/or coping through: Facilitating Temple Sacraments Anointingof the Sick REFERRAL TO: [place] [facility] OUTCOMES: Outcome Unknown ANNOTATION: Received a request from unit nursing staff that patient would like a visit from [facility] Quality Assurance Director prior to an upcoming surgical procedure. Request passed along to the on-call signal tester. Spiritual Care will continue to be available as needed or as requested. * Respiratory Progress Note - Ruth Gallagher CRT - 05/24/2024 6:09 AM EDT PATIENT DRIVEN PROTOCOL - Respiratory Care Services [address] [address] Name: Eduarda Bond [place] [facility]A Date: 05/24/2024 Time: 6:09 AM Patient Driven Protocol Summary: Initial evaluation performed. This Treatment Plan and medications will be reviewed by the Primary Care Team for any contraindications. Respiratory Care Treatment Plan Aerosol Therapy Treatment:: Inhaler(s) PRN with Albuterol Sulfate: 2 puffs. to reduce work of breathing and improve pulmonary gas exchange. Pulmonary Volume Expansion Therapy: Incentive Spirometry PRN to prevent or treat alveolar consolidation and atelectasis. Secretion Management Treatment: Flutter TherapyPRN to enhance mobilization of secretions. The patient will be re-evaluated: No re-evaluation needed. Indications for treatment met. The Triage Level is: (Assessment Score = 0 - 5) Level 5. Triage Level Definitions: Level 1 Severe Respiratory/Airway Compromise Level 2 Moderate Respiratory/Airway Compromise or high risk for pulmonary complications Level 3 Mild Respiratory/Airway Compromise or moderate risk for pulmonary complications Level 4 Episodic Respiratory/Airway Compromise or low risk for pulmonary complications Level 5 No Respiratory/Airway Compromise Triage 1 Triage 2 Triage 3 Triage 4 Triage 5 greater than 20 16 - 20 11 - 15 6 - 10 0 - 5 Medical Record Assessment Clinical Findings Pulmonary Status: 0 - No History Surgical Status: 0 - No Surgical History Chest X-Ray: 0 - Not Performed or performed greater than 3 days ago Assessment Score: 0 Patient Assessment Clinical Findings Respiratory Pattern: 0 - RR 12 - 20; Patient only gets breathless with strenuous exercise. Breath Sounds: 0 - Clear to auscultation Cough Effectiveness: 0 - Strong non-productive Sputum Production: 0 - No sputum production Level of Activity: 1 - Ambulatory with assist O2 needed to keep SpO2 greater than or equal to 92%: 0 - Room Air Assessment Score: 1 Total Assessment Score: 1 Breath Sounds: Inspiratory and expiratory clear bilaterally.. Vital Signs: Resp: 16 (05/23/242221) Pulse: 78 (05/23/242221) Temp: 36.7 C (98.1 F) (05/23/242221) BP: 133/66 (05/23/242221) SpO2: 93 % (05/23/242221) PFT: Minimal Predicted IC: 0.606 L. Inspiratory capacity: 1.5 L. Primary Service: Neurosurgery. Admitting Diagnosis: SDH (subdural hematoma) (HCC) [S06.5XAA] Subdural hematoma (HCC) [S06.5XAA] Pulmonary Diagnosis: none . Prescriptions/Home Medications/Durable Medical Equipment: PRN Albuterol inhaler as needed for wheezing . * Care Plan - An Moeller RN - 05/24/2024 1:38 AM EDT Clinical Goal(s): Patient will be free of falls this shift (05/23/24 2300) Possible barriers to meeting goal(s)/advancing plan of care: None Stability of the patient: Moderately stable - low risk of patient condition declining or worsening Summary regarding today's goal(s): Met: free of falls this shift Recommendations: Hourly rounding, non-slip footwear, call romo/belongings within reach, bed/chair alarmed/at low level documented in this encounter Plan of Treatment Upcoming Encounters Date Type Department Care Team (Late st Contact Info) Description 05/27/2024 5:10 PM EDT [facility] [address] [place] [address] [facility] [address] [place] [address] 05/30/2024 3:30 PM EDT Office Visit [facility] [place] [address] [place] [address] Jaswinder Kahn MD, PhD [address] [place] [address] 06/20/2024 1:30 PM EST Hem/Onc Treatment Hematology/Oncology Treatment, [place] [address] [place] [phone] Christin, Chair 8 Hem Onc Scene [address] [place] [address] 08/02/2024 10:20 AM EST Office [facility] [place] [address] [place] [address] Nicki Gomez DPM [address] [facility] [place] [address] 10/04/2024 3:00 PM EST Office Visit General Internal Medicine [facility] [address] [facility] [place] [address] Ruth Brandon MD [address] [facility] [place] [address] 11/22/2024 2:00 PM EDT Office Visit Cardiology, [facility] [address] [place] [address] Rashmi Graham PA-C [address] [facility] [place] [address] 04/28/2025 1:40 PM EDT Office Visit Rheumatology [place] [address] [address] [place] [address] Sergio Coughlin MD [facility] [place], [place] [address] Scheduled Orders Name Type Priority Associated Diagnoses Orde r Schedule CT HEAD/BRAIN WO CONTRAST Medical Imaging Routine SDH (subdural hematoma) (HCC) Expected: 06/08/2024 (Approximate), Expires: 06/25/2025 Scheduled Procedures Name Priority Associated Diagnoses Date/Ti [...] D LEVEL ONCE IN A LIFETIME-USE SMARTSET# [id number] Completed 04/20/2024, 02/10/2023, 03/18/2021, Additional history exists [...] this encounter Medical Devices Implanted Type Area Supervisor Laundry Device Identifier Shelf Expiration Date Model / Serial / Lot Port 6fr Chronoflex [id number] - [id number] Implanted:Qty: 1 on 02/22/2008 at [place] [facility] Left: Chest CR BARD : [employer] [id number] / / [id number] documented as of this encounter Procedures Procedure Name Priority Date/Time Associated Diagnosis Comments CBC Routine 05/25/2024 6:03 AM EDT COMPREHENSIVE METABOLIC PANEL Routine 05/24/2024 9:15 AM EDT ABO/RH STAT 05/24/2024 9:15 AM EDT TYPE AND SCREEN Routine 05/24/2024 9:15 AM EDT PT INR Routine 05/24/2024 9:15 AM EDT CBC Routine 05/24/2024 9:15 AM EDT STAPH AUREUS PCR Routine 05/24/2024 6:01 AM EDT RADIOLOGY EXAM - CT (IMAGES ONLY, NO REPORT) Routine 05/24/2024 5:[address] HEAD/BRAIN WO CONTRAST Routine 05/24/2024 4:14 AM EDT Nontraumatic acute subdural hemorrhage (HCC) BASIC METABOLIC PANEL Routine 05/23/2024 11:33 PM EDT PT INR Routine 05/23/2024 11:33 PM EDT PHOSPHORUS Routine 05/23/2024 11:33 PM EDT CBC Routine 05/23/2024 11:33 PM EDT MAGNESIUM Routine 05/23/2024 11:33 PM EDT documented in this encounter Results * (ABNORMAL) CBC (05/25/2024 6:03 AM EDT) WBC 5.19 4.00 - 10.80 K/uL 05/25/2024 6:29 AM EDT [facility] RBC 2.72 3.85 - 5.15 M/uL 05/25/2024 6:29 AM EDT [facility] HGB 8.5(L) 12.0 - 15.3 g/dL 05/25/2024 6:29 AM EDT [facility] HCT 27.4(L) 36.0 - 45.2 % 05/25/2024 6:29 AM EDT [facility] MCV 100.7 81.5 - 97.5 fL 05/25/2024 6:29 AM EDT [facility] MCH 31.3 27.0 - 34.0 pg 05/25/2024 6:29 AM EDT LAB[facility]ATORY [facility] MCHC 31.0 32.0 - 36.0 g/dL 05/25/2024 6:29 AM EDT LAB[facility]ORY [facility] RDW 20.7 11.5 - 15.5 % 05/25/2024 6:29 AM EDT LAB[facility] PLT 150 140 - 400 K/uL 05/25/2024 6:29 AM EDT LAB[facility]ORY [facility] MPV 9.2 6.6 - 11.1 fL 05/25/2024 6:29 AM EDT [facility] nRBCs 0 <=0 /100 WBCs 05/25/2024 6:29 AM EDT [facility] Blood Venous blood specimen / Unknown Venipuncture / Unknown 05/25/2024 6:03 AM EDT 05/25/2024 6:13 AM EDT Brennon Gipson MD LAB BLOOD ORDERABLES Performing Organization Address City/[facility]/ZIP Co de Phone Number LABORATORY [facility] [address] [place] [address] * ABO/RH (05/24/2024 9:15 AM EDT) ABO O 05/24/2024 11:14 AM EDT LAB[facility]ORY [facility] BLOOD BANK Rh Positive 05/24/2024 11:14 AM EDT LAB[facility]ORY [facility] Blood Venous blood specimen / Unknown Venipuncture / Unknown 05/24/2024 9:15 AM EDT 05/24/2024 9:34 AM EDT Samantha Guillen DO LAB BLOOD BANK TEST ORDERABLES LAB[facility]AT[facility]LO[facility] B[facility] [address] [place] [address] * (ABNORMAL) COMPREHENSIVE METABOLIC PANEL (05/24/2024 9:15 AM EDT) BUN 8 6 - 20 mg/dL 05/24/2024 10:17 AM EDT LAB[facility]ORY [facility] CREATININE 0.8 0.5 - 1.0 mg/dL 05/24/2024 10:17 AM EDT [facility] EGFR 72 >=60 mL/min 05/24/2024 10:17 AM EDT [facility] Comment:eGFR is calculated b ased on the CKD-EPI 2020 equation. SODIUM 139 135 - 146 mmol/L 05/24/2024 10:17 AM EDT [facility] POTASSIUM 3.4(L) 3.5 - 5.1 mmol/L 05/24/2024 10:17 AM EDT [facility] CHLORIDE 104 98 - 107 mmol/L 05/24/2024 10:17 AM EDT [facility] CO2 28 22 - 32 mmol/L 05/24/2024 10:17 AM EDT [facility] ANION GAP 7 7 - 15 mmol/L 05/24/2024 10:17 AM EDT [facility] GLUCOSE 113 70 - 120 mg/dL 05/24/2024 10:17 AM EDT [facility] Albumin 3.2(L) 3.8 - 5.0 g/dL 05/24/2024 10:17 AM EDT [facility] AST 27 10 - 35 U/L 05/24/2024 10:17 AM EDT [facility] Alkaline Phosphatase 54 35 - 130 U/L 05/24/2024 10:17 AM EDT [facility] Bilirubin, Total 1.0 <=1.2 mg/dL 05/24/2024 10:17 AM EDT [facility] CALCIUM 8.4 8.4 - 10.2 mg/dL 05/24/2024 10:17 AM EDT [facility] Protein 5.8(L) 6.0 - 8.3 g/dL 05/24/2024 10:17 AM EDT [facility] ALT 16 10 - 35 U/L 05/24/2024 10:17 AM EDT [facility] Blood Venous blood specimen / Unknown Venipuncture / Unknown 05/24/2024 9:15 AM EDT 05/24/2024 9:48 AM EDT Samantha Guillen DO LAB BLOOD ORDERABLES [facility] [address] [place] [address] * TYPE AND SCREEN (05/24/2024 9:15 AM EDT) ABO O 05/24/2024 10:22 AM EDT LAB[facility] Rh Positive 05/24/2024 10:22 AM EDT LAB[facility] Red Blood Cell Antibody Screen Negative 05/24/2024 10:22 AM EDT LABORATORY C BLOOD BANK Specimen Expiration Date 05/27/2024 23:59 05/24/2024 10:22 AM EDT LAB[facility]ATORY [facility] Blood Venous blood specimen / Unknown Venipuncture / Unknown 05/24/2024 9:15 AM EDT 05/24/2024 9:34 AM EDT Samantha Guillen DO LAB BLOOD BANK TEST ORDERABLES LAB[facility]AT[facility] [address] [place] [address] * (ABNORMAL) CBC (05/24/2024 9:15 AM EDT) WBC 4.49 4.00 - 10.80 K/uL 05/24/2024 10:00 AM EDT [facility] RBC 2.75 3.85 - 5.15 M/uL 05/24/2024 10:00 AM EDT [facility] HGB 8.4(L) 12.0 - 15.3 g/dL 05/24/2024 10:00 AM EDT [facility] HCT 27.2(L) 36.0 - 45.2 % 05/24/2024 10:00 AM EDT [facility] MCV 98.9 81.5 - 97.5 fL 05/24/2024 10:00 AM EDT LAB[facility] MCH 30.5 27.0 - 34.0 pg 05/24/2024 10:00 AM EDT LAB[facility] MCHC 30.9 32.0 - 36.0 g/dL 05/24/2024 10:00 AM EDT [facility] RDW 20.1 11.5 - 15.5 % 05/24/2024 10:00 AM EDT [facility] PLT 151 140 - 400 K/uL 05/24/2024 10:00 AM EDT [facility] MPV 9.3 6.6 - 11.1 fL 05/24/2024 10:00 AM EDT [facility] nRBCs 0 <=0 /100 WBCs 05/24/2024 10:00 AM EDT [facility] Blood Venous blood specimen / Unknown Venipuncture / Unknown 05/24/2024 9:15 AM EDT 05/24/2024 9:48 AM EDT [facility] LAB BLOOD ORDERABLES Performing Organization Address [facility] de Phone Number LABORATORY [facility] [address] [place] [address] * (ABNORMAL) PT INR (05/24/2024 9:15 AM EDT) Prothrombin Time 16.4(H) 11.6 - 15.2 seconds 05/24/2024 10:18 AM EDT LABORATORY [facility] INR 1.3(H) 0.8 - 1.2 05/24/2024 10:18 AM EDT [facility] Blood Venous blood specimen / Unknown Venipuncture / Unknown 05/24/2024 9:15 AM EDT 05/24/2024 9:48 AM EDT Narrative LAB[facility] - 05/24/2024 10:18 AM EDT Warfarin Therapy INR: 2.0-3.0 conventional anticoagulation INR: 2.5-3.5 high intensity anticoagulation [facility] LAB BLOOD ORDERABLES Performing Organization Address [facility] Co de Phone Number LABORATORY [place] [address] [place] [address] * (ABNORMAL) STAPH AUREUS PCR (05/24/2024 6:01 AM EDT) MRSA PCR Result Negative Negative 8:32 AM EDT LABOR[facility]ORY [facility] Comment:No Methicillin resis tant Staphylococcus aureus detected by PCR (amplified probe). Staphylococcus aureus PCR Result Positive(A) Negative 05/24/2024 8:32 AM EDT LAB[facility] Comment:Staphylococcus aureu s detected by PCR (amplified probe). Upper Respiratory Swab of internal nose / Unknown Non-blood Collection / Unknown 05/24/2024 6:01 AM EDT 05/24/2024 6:13 AM EDT Brennon Gipson MD LAB MICRO - GENERAL ORDERABLES LAB[facility] [address] [place] [address] * RADIOLOGY EXAM - CT (IMAGES ONLY, NO REPORT) (05/24/2024 5:46 AM EDT) Narrative Scheduling, Silent - 05/24/2024 5:46 AM EDT This is an imaging study not interpreted or resulted by a [facility]. Brennon Gipson MD RAD CT * CT HEAD/BRAIN WO CONTRAST (05/24/2024 4:14 AM EDT) Anatomical Region Laterality Modality Head Computed Tomogra phy 05/24/2024 4:57 AM EDT Narrative 05/24/2024 5:17 AM EDT EXAM: EXAM: CT HEAD/BRAIN WO CONTRAST DATE TIME: 05/24/2024 4:14 am HISTORY: evaluate parafalcine SDH vs thickening COMPARISON: None available. TECHNIQUE: CT images were obtained through the intracranial compartment without intravenous contrast and reconstructed in brain and bone kernels. Blood and stroke windows were reviewed. Axial, sagittal and coronal reformats created. FINDINGS: Please note MRI brain is more sensitive for the detection of acute ischemia/infarct. Acute subdural hematoma along the right parietal convexity measures approximately 7-mm in greatest thickness. Minimal mass effect with effacement of the underlying sulci. No shift of midline structures. The basal cisterns are patent. No definite CT evidence of acute ischemia. The figueroa-white matter differentiation is preserved. Bilateral areas of low attenuation within the periventricular white matter most consistent with chronic small vessel ischemic changes. Ventricular size is appropriate given the brain volume. The basal cisterns are patent. No evidence of depressed or displaced skull fractures. The visualized paranasal sinuses and mastoid air cells are clear. IMPRESSION: 1. Acute/subacute right parietal convexity subdural hematoma, approximately 7- mm. No midline shift or herniation. 2. Additional findings as above. I have personally reviewed this examination and agree with the resident/fellow physician's interpretation. Procedure Note Sergio Allred MD - 05/24/2024 EXAM: EXAM: CT HEAD/BRAIN WO CONTRAST DATE TIME: 05/24/2024 4:14 am HISTORY: evaluate parafalcine SDH vs thickening COMPARISON: None available. TECHNIQUE: CT images were obtained through the intracranial compartment withoutintravenous contrast and reconstructed in brain and bone kernels. Bloodand stroke windows were reviewed. Axial, sagittal and coronal reformatscreated. FINDINGS: Please note MRI brain is more sensitive for the detection of acuteischemia/infarct. Acute subdural hematoma along the right parietal convexity measuresapproximately 7-mm in greatest thickness. Minimal mass effect witheffacement of the underlying sulci. No shift of midline structures. Thebasal cisterns are patent. No definite CT evidence of acute ischemia. The figueroa-white matterdifferentiation is preserved. Bilateral areas of low attenuation within the periventricular white mattermost consistent with chronic small vessel ischemic changes. Ventricular size is appropriate given the brain volume. The basal cisternsare patent. No evidence of depressed or displaced skull fractures. The visualized paranasal sinuses and mastoid air cells are clear. IMPRESSION: 1. Acute/subacute right parietal convexity subdural hematoma,approximately 7-mm. No midline shift or herniation. 2. Additional findings as above. I have personally reviewed this examination and agree with the resident/fellow physician's interpretation. Brennon Gipson MD RAD CT * (ABNORMAL) CBC (05/23/2024 11:33 PM EDT) WBC 5.38 4.00 - 10.80 K/uL 05/24/2024 12:43 AM EDT LAB[facility]AT[facility] RBC 2.85 3.85 - 5.15 M/uL 05/24/2024 12:43 AM EDT [facility] HGB 8.6(L) 12.0 - 15.3 g/dL 05/24/2024 12:43 AM EDT LAB[facility] HCT 28.4(L) 36.0 - 45.2 % 05/24/2024 12:43 AM EDT LABORATORY [facility] MCV 99.6 81.5 - 97.5 fL 05/24/2024 12:43 AM EDT LABORATORY [facility] MCH 30.2 27.0 - 34.0 pg 05/24/2024 12:43 AM EDT LABORATORY [facility] MCHC 30.3 32.0 - 36.0 g/dL 05/24/2024 12:43 AM EDT LABORATORY [facility] RDW 19.9 11.5 - 15.5 % 05/24/2024 12:43 AM EDT LABOR[facility] PLT 162 140 - 400 K/uL 05/24/2024 12:43 AM EDT LABOR[facility]ORY [facility] MPV 9.4 6.6 - 11.1 fL 05/24/2024 12:43 AM EDT LABOR[facility]ORY [facility] nRBCs 1(H) <=0 /100 WBCs 05/24/2024 12:43 AM EDT [facility] Blood Venous blood specimen / Unknown Venipuncture / Unknown 05/23/2024 11:33 PM EDT 05/23/2024 11:49 PM EDT Brennon Gipson MD LAB BLOOD ORDERABLES LAB[facility] [address] [place] [address] * MAGNESIUM (05/23/2024 11:33 PM EDT) Magnesium 2.1 1.5 - 2.6 mg/dL 05/24/2024 1:13 AM EDT LABOR[facility]ORY [facility] Blood Venous blood specimen / Unknown Venipuncture / Unknown 05/23/2024 11:33 PM EDT 05/23/2024 11:49 PM EDT Brennon Gipson MD LAB BLOOD ORDERABLES [facility] [address] [place] [address] * PHOSPHORUS (05/23/2024 11:33 PM EDT) Phosphorus 3.2 2.5 - 4.8 mg/dL 05/24/2024 1:13 AM EDT LAB[facility]ORY [facility] Blood Venous blood specimen / Unknown Venipuncture / Unknown 05/23/2024 11:33 PM EDT 05/23/2024 11:49 PM EDT Brennon Gipson MD LAB BLOOD ORDERABLES Performing Organization Address [facility] de Phone Number LAB[facility]ORY [facility] [address] [place] [address] * (ABNORMAL) PT INR (05/23/2024 11:33 PM EDT) Prothrombin Time 17.6(H) 11.6 - 15.2 seconds 05/24/2024 12:38 AM EDT LABOR[facility]ORY [facility] INR 1.4(H) 0.8 - 1.2 05/24/2024 12:38 AM EDT LAB[facility]ORY [facility] Blood Venous blood specimen / Unknown Venipuncture / Unknown 05/23/2024 11:33 PM EDT 05/23/2024 11:49 PM EDT Narrative LABORATORY C - 05/24/2024 12:38 AM EDT Warfarin Therapy INR: 2.0-3.0 conventional anticoagulation INR: 2.5-3.5 high intensity anticoagulation Brennon Gipson MD LAB BLOOD ORDERABLES Performing Organization Address [facility] Phone Number LABORATORY [facility] [address] [place] [address] * BASIC METABOLIC PANEL (05/23/2024 11:33 PM EDT) BUN 9 6 - 20 mg/dL 05/24/2024 1:13 AM EDT LABORATORY [facility] CREATININE 0.9 0.5 - 1.0 mg/dL 05/24/2024 1:13 AM EDT LABOR[facility]ORY [facility] EGFR 63 >=60 mL/min 05/24/2024 1:13 AM EDT LAB[facility] Comment:eGFR is calculated b ased on the CKD-EPI 2020 equation. SODIUM 138 135 - 146 mmol/L 05/24/2024 1:13 AM EDT LABORATORY [facility] POTASSIUM 3.5 3.5 - 5.1 mmol/L 05/24/2024 1:13 AM EDT LABORATORY C CHLORIDE 104 98 - 107 mmol/L 05/24/2024 1:13 AM EDT LAB[facility]ATORY [facility] CO2 25 22 - 32 mmol/L 05/24/2024 1:13 AM EDT LAB[facility]ATORY [facility] ANION GAP 9 7 - 15 mmol/L 05/24/2024 1:13 AM EDT LAB[facility] GLUCOSE 111 70 - 120 mg/dL 05/24/2024 1:13 AM EDT LABORATORY C CALCIUM 8.4 8.4 - 10.2 mg/dL 05/24/2024 1:13 AM EDT LABORATORY [facility] Blood Venous blood specimen / Unknown Venipuncture / Unknown 05/23/2024 11:33 PM EDT 05/23/2024 11:49 PM EDT Brennon Gipson MD LAB BLOOD ORDERABLES [facility] [address] [place] [address] documented in this encounter Visit Diagnoses Diagnosis SDH (subdural hematoma) (HCC)- Primary Subdural hemorrhage Acute non-recurrent frontal sinusitis Nontraumatic acute subdural hemorrhage (HCC) Subdural hemorrhage SDH (subdural hematoma) (HCC) Subdural hemorrhage PAF (paroxysmal atrial fibrillation) (HCC) Atrial fibrillation Chronic anticoagulation Long-term (current) use of anticoagulants Acute blood loss anemia Acute posthemorrhagic anemia AVM (arteriovenous malformation) of stomach, acquired with hemorrhage Angiodysplasia of stomach and duodenum with hemorrhage documented in this encounter Administered Medications Inactive Administered Medications - up to 3 most recent administrations Medication Order MAR Action Action Date Dose Rate Site Acetaminophen (Tylenol) tab 650 mg 650 mg, Oral, Q6H PRN Pain, Mild, Fever >38C(100.5F), Starting on Thu05/23/24 at 2311, Until Thu05/25/24 at 1822, Maximum of 4 grams (4000 mg) per day., Admission albuterol (VENTOLIN HFA/PROVENTIL HFA) inhaler 2 Puff, Inhalation, PRN Dyspnea, Starting on Thu05/24/24 at 0618, Until Thu05/25/24 at 1822, Shake can for 10 seconds before each puff SEND INHALER WITH PATIENT! WASTE INFO ( IF NOT SENT HOME WITH PATIENT) : Return unused medication to pharmacy in zip lock bag for disposal into black container labeled SP. amiodarone (Cordarone) tab 100 mg 100 mg, Oral, Daily(AM), First dose on Thu05/24/24 at 0900, Until Discontinued Given 05/25/2024 7:55 AM EDT 100 mg Given 05/24/2024 8:48 AM EDT 100 mg hEParin inj 5,000 Units 5,000 Units, Subcutaneous, Q8H, First dose on Thu05/24/24 at 0745, Until Discontinued, Admission Given 05/25/2024 1:34 PM EDT 5,000 Units Abdomen Right Lower Given 05/25/2024 6:22 AM EDT 5,000 Units A bdomen Left Lower Given 05/24/2024 8:59 PM EDT 5,000 Units A bdomen Left Lower levETIRAcetam (Keppra) 500 mg in 100 mL ivpb *LOCKED DOSE* 500 mg, IV Piggyback, BID (.AM/PM), 14 doses, First dose on Thu05/24/24 at 0900, Last dose on Thu05/30/24 at 2100, at 600 mL/hr Administer over 10 Minutes New Bag 05/25/2024 8:04 AM EDT 500 mg 600 mL/hr Restarted 05/24/2024 9:16 PM EDT 3,000 mg/hr 600 mL/hr New Bag 05/24/2024 9:06 PM EDT 500 mg 600 mL/hr levothyroxine (Levoxyl) tab 25 mcg 25 mcg, Oral, [id number], First dose on Thu05/24/24 at 0630, Until Discontinued Given 05/25/2024 6:22 AM EDT 25 mcg Given 05/24/2024 5:42 AM EDT 25 mcg metoprolol succinate XL (toPROL XL) tab 25 mg 25 mg, Oral, Daily(AM), First dose on Thu05/24/24 at 0900, Until Discontinued, Hold for HR less than 60 or SBP below 100 and notify service if dose is held This med should NOT be Crushed or Chewed. Given 05/25/2024 7:55 AM EDT 25 mg Given 05/24/2024 8:48 AM EDT 25 mg Pantoprazole (Protonix) inj 40 mg 40 mg, IV Push, Q12H, First dose on Thu05/24/24 at 0930, Until Discontinued, IV push instructions: Flush I.V. Line before and after administration. In-line filter not required. 2-minute infusion: The volume of reconstituted solution (4mg/ml) to be injected may be administered intravenously over at least 2 minutes. ( Dilute each vial with 10 ml of 0.9% saline PF) Given 05/24/2024 9:37 AM EDT 40 mg pantoprazole (Protonix) tab 40 mg 40 mg, Oral, BID (.AM/PM), First dose on Thu05/24/24 at 2100, Until Discontinued, This med should NOT be Crushed or Chewed Given 05/25/2024 7:55 AM EDT 40 mg Given 05/24/2024 8:59 PM EDT 40 mg rosuvastatin (Crestor) tab 10 mg 10 mg, Oral, Daily(AM), First dose on Thu05/24/24 at 0900, Until Discontinued Given 05/25/2024 7:55 AM EDT 10 mg Given 05/24/2024 8:48 AM EDT 10 mg sacubitril-valsartan 24-26 mg per tab (Entresto) tab 1 Tablet 1 Tablet, Oral, BID (.AM/PM), First dose on Thu05/24/24 at 0900, Until Discontinued Given 05/25/2024 7:55 AM EDT 1 Ta blet Given 05/24/2024 8:59 PM EDT 1 Tablet Given 05/24/2024 8:48 AM EDT 1 Tablet documented in this encounter Active and Recently Administered Medications Times are shown in EDT. Scheduled Medication Order 05/23/2024 05/24/2024 05/25/2024 amiodarone (Cordarone) tab 100 mg 100 mg, Oral, Daily(AM), First dose on Thu05/24/24 at 0900, Until Discontinued 0848 (Given - Provider: Uma Juares RN) 0755 (Given - Provider: Uma Juares RN) hEParin inj 5,000 Units 5,000 Units, Subcutaneous, Q8H, First dose on Thu05/24/24 at 0745, Until Discontinued, Admission 0852 (Given - Provider: Uma Juares, RUDI)1323 (Given - Provider: Uma Juares, RUDI)9 (Given - Provider: An Moeller RN) 0622 (Given - Provider: An Moeller RN)1334 (Given - Provider: Uma Juares, RUDI) levETIRAcetam (Keppra) 500 mg in 100 mL ivpb *LOCKED DOSE* 500 mg, IV Piggyback, BID (.AM/PM), 14 doses, First dose on Thu05/24/24 at 0900, Last dose on Thu05/30/24 at 2100, at 600 mL/hr Administer over 10 Minutes 0859 (New Bag - Provider: Uma Juares RN)0900 (Paused - Provider: Uma Juares RN)09 (Restarted - Provider: Uma Juares RN)0912 (Stopped - Provider: Uma Juares RN)210 (New Bag - Provider: An Moeller RN)211 (Paused - Provider: An Moeller RN)2115 (Restarted - Provider: An Moeller RN)211 (Stopped - Provider: An Moeller RN) 0804 (New Bag - Provider: Uma Juares RN)0814 (Stopped - Provider: Uma Juares RN) levothyroxine (Levoxyl) tab 25 mcg 25 mcg, Oral, [id number], First dose on Thu05/24/24 at 0630, Until Discontinued 0542 (Given - Provider: An Moeller RN) 0622 (Given - Provider: An Moeller RN) metoprolol succinate XL (toPROL XL) tab 25 mg 25 mg, Oral, Daily(AM), First dose on Thu05/24/24 at 0900, Until Discontinued, Hold for HR less than 60 or SBP below 100 and notify service if dose is held This med should NOT be Crushed or Chewed. 0848 (Given - Provider: Uma Juares RN) 0755 (Given - Provider: Uma Juares RN) Pantoprazole (Protonix) inj 40 mg (CANCELED) 40 mg, IV Push, Q12H, First dose on Thu05/24/24 at 0930, Until Discontinued, IV push instructions: Flush I.V. Line before and after administration. In-line filter not required. 2-minute infusion: The volume of reconstituted solution (4mg/ml) to be injected may be administered intravenously over at least 2 minutes. ( Dilute each vial with 10 ml of 0.9% saline PF) 936 (Given - Provider: Uma Juares RN) pantoprazole (Protonix) tab 40 mg 40 mg, Oral, BID (.AM/PM), First dose on Thu05/24/24 at 2100, Until Discontinued, This med should NOT be Crushed or Chewed 2058 (Given - Provider: An Moeller RN) 075 (Given - Provider: Uma Juares, RUDI) rosuvastatin (Crestor) tab 10 mg 10 mg, Oral, Daily(AM), First dose on Thu05/24/24 at 0900, Until Discontinued 0848 (Given - Provider: Uma Juares RN) 075 (Given - Provider: Uma Juares RN) sacubitril-valsartan 24-26 mg per tab (Entresto) tab 1 Tablet 1 Tablet, Oral, BID (.AM/PM), First dose on Thu05/24/24 at 0900, Until Discontinued 0848 (Given - Provider: Uma Juares RN)2058 (Given - Provider: An Moeller RN) 075 (Given - Provider: Uma Juares RN) PRN Medication Order 05/23/2024 05/24/2024 05/25/2024 Acetaminophen (Tylenol) tab 650 mg 650 mg, Oral, Q6H PRN Pain, Mild, Fever >38C(100.5F), Starting on Thu05/23/24 at 2311, Until Thu05/25/24 at 1822, Maximum of 4 grams (4000 mg) per day., Admission albuterol (VENTOLIN HFA/PROVENTIL HFA) inhaler 2 Puff, Inhalation, PRN Dyspnea, Starting on Thu05/24/24 at 0618, Until Thu05/25/24 at 1822, Shake can for 10 seconds before each puff SEND INHALER WITH PATIENT! WASTE INFO ( IF NOT SENT HOME WITH PATIENT) : Return unused medication to pharmacy in zip lock bag for disposal into black container labeled SP. documented in this encounter Advance Directives * [...] PM 01/16/2008 7:05 PM Care Teams General [employer] Farm[employer] Relationship Specialty Start Date End Date Ruth Brandon MD [address] [place] [address] PCP - General Internal Medicine 04/25/21 documented as of this encounter
--- OUTSIDE RECORDS SUMMARY | 2024-07-03 13:12 | External Medical Summary | Summary of Care ---
Author Name Unknown Organization [facility] Address [address] [place] [address] Phone [phone] Care Team Providers Care Kid Club Attendant Name Role Phone Ruth Brandon MD Primary Care Provider + Reason for Visit * Reason Onset Date Comments Appointment 05/23/2024 [place] Encounter Details Date Type Department Care Team (Late st Contact Info) Description 05/23/2024 Telephone Hematology/Oncology [facility] [place] [address] [facility] [place] [phone] Oc Stevens MD [address] [facility] [place] [address] Appointment ([place]) Allergies Active Allergy Reactions Criticality Noted Date Comments Adhesive Tape Other (Please comment) 01/24/2008 Welts, blisters Bee Stings 02/14/2003 Bee Venom Hives 10/17/2019 Iodine Hives 10/17/2019 Ivp Dye 01/10/1998 hives documented as of this encounter (statuses as of 05/25/2024) Medications Medication Sig Dispensed Refills Start Date End Date Status VITAMIN B-6 100 MG PO TABS Take 1 Tablet by mouth in the morning. Suspended CALCIUM 1250 MG PO TABS Take 1 Tablet by mouth in the morning. Suspended ASPIRIN 81 MG PO TABS Take 1 Tablet by mouth in the morning. 05/24/20 24 Discontinued VITAMIN D 2000 UNITS PO CAPS Take 1,000 Units by mouth in the morning. Suspended albuterol (VENTOLIN HFA) 108 (90 BASE) MCG/ACT inhalerIndications: Acute bronchitis, antibiotics not indicated Inhale 2 Puffs by mouth every 6 hours as needed for Wheezing. 3 Inhaler 1 8 Suspended Additional Information acetaminophen (TYLENOL) 500 MG Tablet Take 1 Tablet by mouth 2 times a day as needed (pain). Suspended Amoxicillin 500 MG Oral Capsule (Amoxil) Take 4 capsules prior to appointment 4 Capsule 6 3 Suspended Additional Information Furosemide 20 MG Oral Tablet (Lasix)Indications: Hypothyroidism,Idio pathic cardiomyopathy (HCC),Presence of automatic cardioverter/defibr illator (AICD) TAKE ONE TABLET BY MOUTH EVERY DAY 5 DAYS PER WEEK, WITH AN EXTRA TABLET ON ALTERNATIVE DAYS IF NEEDED 90 Tablet 3 3 Suspended Additional Information Triamcinolone Acetonide 0.1 % External Cream (Aristocort)Indicat ions:Skin neoplasm,Pruritus Apply to areas of itchy rash on back, arms, and neck twice daily 450 g 5 3 Suspended Additional Information Entresto 24-26 MG Oral Tablet (sacubitril-valsart an 24-26 mg per tab)Indications:Idi opathic cardiomyopathy (HCC),Chronic systolic congestive heart failure, NYHA class 2 (HCC) TAKE ONE TABLET BY MOUTH TWICE A DAY 200 Tablet 3 3 08/11/20 24 Suspended Additional Information Rosuvastatin Calcium 10 MG Oral Tablet (Crestor)Indication s: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) TAKE ONE TABLET BY MOUTH EVERY DAY IN THE MORNING 90 Tablet 3 4 09/07/19 25 Suspended Additional Information Pantoprazole Sodium 40 MG Oral Tablet Delayed Release (Protonix) TAKE ONE TABLET BY MOUTH EVERY DAY 100 Tablet 2 4 05/24/20 24 Discontinued Metoprolol Succinate ER 25 MG Oral Tablet Extended Release 24 Hour (toPROL XL)Indications:Idio pathic cardiomyopathy (HCC),Chronic systolic congestive heart failure, NYHA class 2 (HCC),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) Take 1 Tablet by mouth in the morning. 100 Tablet 3 4 Suspended Additional Information Levothyroxine Sodium 25 MCG Oral Tablet (Levoxyl)Indication s:Other specified hypothyroidism TAKE ONE TABLET BY MOUTH DAILY AT LEAST 30 MINUTES PRIOR TO FIRST MEAL OF THE DAY OR OTHER MEDICATIONS 100 Tablet 2 4 Suspended Additional Information Cefuroxime Axetil 500 MG Oral Tablet (Ceftin)Indications :Acute non-recurrent frontal sinusitis Take 1 Tablet by mouth in the morning and 1 Tablet before bedtime. Do all this for 10 days. 20 Tablet 4 05/24/20 24 Discontinued Amiodarone HCl 200 MG Oral Tablet (Cordarone) Take one-half Tablet by mouth in the morning. 50 Tablet 3 4 Suspended Additional Information documented as of this encounter (statuses as of 05/25/2024) Active Problems Problem Noted Date Diagnosed Date SDH (subdural hematoma) 05/25/2024 PAF (paroxysmal atrial fibrillation) 05/24/2024 Chronic anticoagulation 05/24/2024 Acute blood loss anemia 05/24/2024 AVM (arteriovenous malformat ion) of stomach, acquired with hemorrhage 05/24/2024 Nonischemic cardiomyopathy 03/17/2024 Chronic atrial fibrillation 12/29/2023 Atherosclerosis of aorta 06/23/2023 Atherosclerosis of coronary artery of [place] heart without angina pectoris 06/23/2023 Atrial thrombus [...] as of this encounter (statuses as of 05/25/2024) Resolved Problems Problem Noted Date Diagnosed Date [...] HX OF BREAST MALIGNANCY - ri ght, [id number], 200702/26/2011 10/04/2013 Polyneuropathy in other dise ases [...] as of this encounter (statuses as of 05/25/2024) Immunizations Name Administration Dates Next Due COVID-19 mRNA, LNP-s, No Pre serve, 2-Dose Series ([employer]) 07/19/2021,11/06/2020,10/11/2020 COVID-19, LNP-s, No Preserve , Sony-sucrose, Ages 12+ ([employer]ile[employer]) 12/27/2021 COVID-19, MRNA-LNP, 23-24, P F, 30 MCG/0.3 mL, 12 YRS AND ABOVE, IM ([employer]) 07/13/2023 COVID-19, MRNA-LNP, 24-25, P R, 30MCG/0.3ML, IM, 12YRS AND ABOVE ([employer]) 04/28/2024 Covid-19, Mrna, Lnp-s, Pf, B ivalent, 30 Mcg, IM, 12 yrs and above ([employer]) 07/17/2022 Influenza, Whole Virus 09/15/1985 Pneumococcal Conjugate [...] as of this encounter Miscellaneous Notes * Addendum Note - Oc Stevens MD [...] EDT Moved apt to 06/20 left message FYI nursing * Telephone Encounter - Swati Stock OSA - 05/23/2024 8:04 AM EDT Spouse Trace is calling, patient is currently admitted to [facility] so her reclast appt today needs [...] Description 05/27/2024 5:10 PM EDT [facility] [address] [place] [address] [facility] [place] [address] [place] [address] 05/30/2024 3:30 PM EDT Office Visit Neurosurgery, [place] [address] [place] [address] Jaswinder Kahn MD, PhD [address] [place] [address] 06/20/2024 1:30 PM EST Hem[facility] 200 [place] [phone] Christin, Chair 8 Hem Onc [facility] [address] 08/02/2024 10:20 AM EST Office Visit Podiatry Health system [address] [facility] [place] [address] Nicki Gomez DPM 132 [facility] [address] 10/04/2024 3:00 PM EST Office Visit General Internal Medicine [facility] 200 [facility] [place] [address] Ruth Brandon MD 200 [facility] [place] [address] 11/22/2024 2:00 PM EDT Office Visit Cardiology, Health system [address] [facility] [place] [address] Rashmi Graham PA-C 132 [facility] [place] [address] 04/28/2025 1:40 PM EDT Office Visit Rheumatology [place] [phone] [facility] [place] [address] Oc Stevens MD [address] [place] [address] [place] [address] Scheduled Orders Name Type Priority Associated Diagnoses [...] D LEVEL ONCE IN A LIFETIME-USE SMARTSET# [id number] Completed 04/20/2024, 02/10/2023, 03/18/2021, Additional history exists [...] this encounter Medical Devices Implanted Type Area Pick Up Attendant Device Identifier Shelf Expiration Date Model / Serial / Lot Port 6fr Chronoflex [id number] - [id number] Implanted:Qty: 1 on 02/22/2008 at OR [facility] [place] Left: Chest CR BARD : ACCESS SYSTEM[employer] [id number] / / [id number] documented as of this encounter Visit Diagnoses Diagnosis Senile osteoporosis- Primary documented in this encounter Advance Directives * Full Code (Latest Code Status on File) Date Activated Date Inactivated Comments 05/23/2024 11:12 PM This order re flects the patients wishes and were consensually agreed [...] 1:06 PM 01/16/2008 7:05 PM Care Teams Kid Club Attendant Relationship Specialty Start Date End Date Ruth Brandon MD 200 [facility] [place] [address] PCP - General Internal Medicine 04/25/21 documented as of this encounter
--- OUTSIDE RECORDS SUMMARY | 2024-07-03 13:12 | External Medical Summary | Summary of Care ---
Author Name Unknown Organization [facility] Address [address] [facility] [place] [address] Phone [phone] Care Team Providers Care Lab Support Tech Name Role Phone Ruth Brandon MD Primary Care Provider + Encounter Details Date Type Department Care Team (Late st Contact Info) Description 05/23/2024 Result Scan Unspecified Department Darian Neri, DO [address] [place], [place] [phone] <No scans attached> Allergies Active Allergy Reactions Criticality Noted Date Comments Adhesive Tape Other (Please comment) 01/24/2008 Welts, blisters Bee Stings 02/14/2003 Bee Venom Hives 10/17/2019 Iodine Hives 10/17/2019 Ivp Dye 01/10/1998 hives documented as of this encounter (statuses as of 05/24/2024) Medications Medication Sig Dispensed Refills Start Date End Date Status VITAMIN B-6 100 MG PO TABS Take 1 Tablet by mouth in the morning. Suspended CALCIUM 1250 MG PO TABS Take 1 Tablet by mouth in the morning. Suspended ASPIRIN 81 MG PO TABS Take 1 Tablet by mouth in the morning. Suspended VITAMIN D 2000 UNITS PO CAPS Take 1,000 Units by mouth in the morning. Suspended albuterol (VENTOLIN HFA) 108 (90 BASE) MCG/ACT inhalerIndications: Acute bronchitis, antibiotics not indicated Inhale 2 Puffs by mouth every 6 hours as needed for Wheezing. 3 Inhaler 1 12/31/2017 Suspended Additional Information acetaminophen (TYLENOL) 500 MG Tablet Take 1 Tablet by mouth 2 times a day as needed (pain). Suspended Amoxicillin 500 MG Oral Capsule (Amoxil) Take 4 capsules prior to appointment 4 Capsule 6 02/26/2023 Suspended Additional Information Furosemide 20 MG Oral Tablet (Lasix)Indications: Hypothyroidism,Idio pathic cardiomyopathy (HCC),Presence of automatic cardioverter/defibr illator (AICD) TAKE ONE TABLET BY MOUTH EVERY DAY 5 DAYS PER WEEK, WITH AN EXTRA TABLET ON ALTERNATIVE DAYS IF NEEDED 90 Tablet 3 07/27/2023 Suspended Additional Information Triamcinolone Acetonide 0.1 % External Cream (Aristocort)Indicat ions:Skin neoplasm,Pruritus Apply to areas of itchy rash on back, arms, and neck twice daily 450 g 5 07/27/2023 Suspended Additional Information Entresto 24-26 MG Oral Tablet (sacubitril-valsart an 24-26 mg per tab)Indications:Idi opathic cardiomyopathy (HCC),Chronic systolic congestive heart failure, NYHA class 2 (HCC) TAKE ONE TABLET BY MOUTH TWICE A DAY 200 Tablet 3 08/12/2023 4 Suspended Additional Information Rosuvastatin Calcium 10 MG Oral Tablet (Crestor)Indication s: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) TAKE ONE TABLET BY MOUTH EVERY DAY IN THE MORNING 90 Tablet 3 09/08/2023 5 Suspended Additional Information Pantoprazole Sodium 40 MG Oral Tablet Delayed Release (Protonix) TAKE ONE TABLET BY MOUTH EVERY DAY 100 Tablet 2 11/24/2023 5 Suspended Additional Information Patient taking differently: 40 mg Daily(AM), Reported on 04/20/2024 Metoprolol Succinate ER 25 MG Oral Tablet Extended Release 24 Hour (toPROL XL)Indications:Idio pathic cardiomyopathy (HCC),Chronic systolic congestive heart failure, NYHA class 2 (HCC),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) Take 1 Tablet by mouth in the morning. 100 Tablet 3 01/01/2024 Suspended Additional Information Levothyroxine Sodium 25 MCG Oral Tablet (Levoxyl)Indication s:Other specified hypothyroidism TAKE ONE TABLET BY MOUTH DAILY AT LEAST 30 MINUTES PRIOR TO FIRST MEAL OF THE DAY OR OTHER MEDICATIONS 100 Tablet 2 01/04/2024 Suspended Additional Information Amiodarone HCl 200 MG Oral Tablet (Cordarone) Take one-half Tablet by mouth in the morning. 50 Tablet 3 05/12/2024 Suspended Additional Information documented as of this encounter (statuses as of 05/24/2024) Active Problems Problem Noted Date Diagnosed Date Nonischemic cardiomyopathy 03/17/2024 Chronic atrial fibrillation 12/29/2023 Atherosclerosis of aorta 06/23/2023 Atherosclerosis of coronary artery of [place] heart without angina pectoris 06/23/2023 Atrial thrombus [...] as of this encounter (statuses as of 05/24/2024) Resolved Problems Problem Noted Date Diagnosed Date [...] HX OF BREAST MALIGNANCY - ri ght, [id number], 200702/26/2011 10/04/2013 Polyneuropathy in other dise ases [...] as of this encounter (statuses as of 05/24/2024) Immunizations Name Administration Dates Next Due COVID-19 mRNA, LNP-s, No Pre serve, 2-Dose Series ([employer]) 07/19/2021,11/06/2020,10/11/2020 COVID-19, LNP-s, No Preserve , Sony-sucrose, Ages 12+ ([employer]) 12/27/2021 COVID-19, MRNA-LNP, 23-24, P F, 30 MCG/0.3 mL, 12 YRS AND ABOVE, IM ([employer]) 07/13/2023 COVID-19, MRNA-LNP, 24-25, P R, 30MCG/0.3ML, IM, 12YRS AND ABOVE ([employer]) 04/28/2024 Covid-19, Mrna, Lnp-s, Pf, B ivalent, [...] Care Team (Late st Contact Info) Description 05/25/2024 5:10 PM EDT [facility] [address] [place] [address] [facility] [address] [place] [address] 06/20/2024 1:30 PM EST Hem/Onc Treatment Hematology/Oncology Treatment, [place] [address] [place] [phone] Christin, Chair 8 Hem Onc [place] [address] [place] [address] 08/02/2024 10:20 AM EST [facility] [place] [address] [place] [address] Nicki Gomez, HELLEN 132 [place] [address] 10/04/2024 3:00 PM EST Office Visit General Internal Medicine [facility] [address] [place] [address] Ruth Brandon MD 200 [facility] [place] [address] 11/22/2024 2:00 PM EDT Office Visit Cardiology, [facility] [address] [facility] [place] [address] Rashmi Graham PA-C [address] [place] [address] 04/28/2025 1:40 PM EDT Office Visit Rheumatology [facility] [address] [place] [address] Sergio Coughlin MD [address] [place] [address] Scheduled Procedures Name Priority Associated Diagnoses Date/Ti [...] 05/12/2024, 01/2024, 05/06/2022, Additional history exists GFR 05/23/2025 05/23/2024, 04/18, 04/20/2024, Additional history exists DTap/Tdap Vaccines (3 - Td or Tdap) 04/29/2026 04/29/2016, 03/02/2006 Pneumococcal Vaccine: 65+ Years Completed 04/04/2015, 09/28/2012, 10/28/2006 Zoster Vaccines Completed 01/15/2019, 02/2018, 04/02/2011 VITAMIN D LEVEL ONCE IN A LIFETIME-USE SMARTSET# [id number] Completed 04/20/2024, 02/10/2023, 03/18/2021, Additional history exists [...] this encounter Medical Devices Implanted Type Area Golf Course Manager Device Identifier Shelf Expiration Date Model / Serial / Lot Port 6fr Chronoflex [id number] - [id number] Implanted:Qty: 1 on 02/22/2008 [place] [facility] [place] Left: Chest CR BARD : ACCESS SYSTEM[employer] [id number] / / [id number] documented as of this encounter Procedures Procedure Name Priority Date/Time Associated Diagnosis Comments ECHOCARDIOLOGY SCANNED RESULT 05/23/2024 documented in this encounter Results * ECHOCARDIOLOGY SCANNED RESULT (05/23/2024) 05/23/2024 Darian Neri DO ECHOCARDIOLOGY documented in this encounter Advance Directives * [...] 1:06 PM 01/16/2008 7:05 PM Care Teams Lab Support Tech Relationship Specialty Start Date End Date Ruth Brandon MD 200 [facility], [place] [address] PCP - General Internal Medicine 04/25/21 documented as of this encounter
--- OUTSIDE RECORDS SUMMARY | 2024-07-03 13:12 | External Medical Summary | Summary of Care ---
Author Name Unknown Organization [facility] Address [address] [place] [address] Phone [phone] Care Team Providers Care Supervisor Beehive Kiln Name Role Phone Ruth Brandon MD Primary Care Provider + Encounter Details Date Type Department Care Team (Late st Contact Info) Description 05/20/2024 Orders Only Neurosurgery, [place] [address] [place] [address] Jaswinder Kahn MD, PhD [address] [place] [address] Allergies Active Allergy Reactions Criticality [...] aorta 06/23/2023 Atherosclerosis of coronary artery of [place] heart without angina pectoris 06/23/2023 Atrial thrombus [...] HX OF BREAST MALIGNANCY - ri ght, [id number], 200702/26/2011 10/04/2013 Polyneuropathy in other dise ases [...] mRNA, LNP-s, No Pre serve, 2-Dose Series ([employer]) 07/19/2021,11/06/2020,10/11/2020 COVID-19, LNP-s, No Preserve , Sony-sucrose, Ages 12+ ([employer]) 12/27/2021 COVID-19, MRNA-LNP, 23-24, P F, 30 MCG/0.3 mL, 12 YRS AND ABOVE, IM ([facility]) 07/13/2023 COVID-19, MRNA-LNP, 24-25, P R, 30MCG/0.3ML, [...] Description 05/27/2024 5:10 PM EDT [facility] 132 [facility] [place] [address] [facility] [address] [place] [address] 05/30/2024 3:30 PM EDT Office Visit Neurosurgery, [place] [address] [place] [address] Jaswinder Kahn MD, PhD [address] [place] [address] 06/20/2024 1:30 PM EST Hem/Onc Treatment Hematology/Oncology Treatment, [place] [address] [place] [phone] Christin, Chair 8 Hem Onc [place] [address] [place] [address] 08/02/2024 10:20 AM EST [facility] [place] 132 [place] [address] Nicki Gomez DPM 132 [facility] [place] [address] 10/04/2024 3:00 PM EST Office Visit General Internal Medicine [facility] [address] [place] [address] Ruth Brandon MD 200 [facility] [place] [address] 11/22/2024 2:00 PM EDT Office Visit Cardiology, [facility] [address] [place] [address] Rashmi Graham PA-C [address] [place] [address] 04/28/2025 1:40 PM EDT Office Visit Rheumatology [place] [phone] [employer] [place], [place] [address] Sergio Coughlin MD [address] [employer] [place], [place] [address] Scheduled Procedures Name Priority Associated Diagnoses Date/Ti [...] D LEVEL ONCE IN A LIFETIME-USE SMARTSET# [id number] Completed 04/20/2024, 02/10/2023, 03/18/2021, Additional history exists [...] this encounter Medical Devices Implanted Type Area Electrical Intern Device Identifier Shelf Expiration Date Model / Serial / Lot Port 6fr Chronoflex [id number] - [id number] Implanted:Qty: 1 on 02/22/2008 at [place] [facility] [place] Left: Chest CR BARD : [employer]ESS [employer] [id number] / / [id number] documented as of this encounter Procedures Procedure [...] interpreted or resulted by a [facility] or [place] contracted radiologist. Jaswinder Khan MD, PhD RAD CT documented in this encounter Advance Directives Documents on File Type Date Recorded Patient Electronic Tester Expl anation Advance Directives and Living Will [...] PM 01/16/2008 7:05 PM Care Teams Supervisor Beehive Kiln Relationship Specialty Start Date End Date Ruth Brandon MD 200 [facility] [place] [address] PCP - General Internal Medicine 04/25/21 documented as of this encounter
--- OUTSIDE RECORDS SUMMARY | 2024-07-03 13:12 | External Medical Summary ---
Author Name Unknown Address Unknown Organization K01:[place] [facility] [place] [address] [facility] [address] [facility] [address] Laboratory Report Ordering Provider Test Date Status HIREN SILVA 05/24/2024 09:15:00 Final Observation Date Value Abnormality Reference (Units ) Status WBC, Total 05/24/2024 09:15:00 4.49 4.00-10.80 (K/uL) Final RBC 05/24/2024 09:15:00 2.75 3.85-5.15 (M/uL) Final Hemoglobin 05/24/2024 09:15:00 8.4 Below low normal 12.0-15.3 (g/dL) Final HCT 05/24/2024 09:15:00 27.2 Below low normal 36.0-45.2 (%) Final MCV 05/24/2024 09:15:00 98.9 81.5-97.5 (fL) Final MCH 05/24/2024 09:15:00 30.5 27.0-34.0 (pg) Final MCHC 05/24/2024 09:15:00 30.9 32.0-36.0 (g/dL) Final RDW 05/24/2024 09:15:00 20.1 11.5-15.5 (%) Final Platelets 05/24/2024 09:15:00 151 140-400 (K/uL) Final MPV 05/24/2024 09:15:00 9.3 6.6-11.1 (fL) Final Nucleated erythrocytes/100 leukocytes [Ratio] in Blood by Automated count 05/24/2024 09:15:00 0 <=0 (/100 WBCs) Final Performing Location [facility] [place] [address] [place] [address]
--- OUTSIDE RECORDS SUMMARY | 2024-07-03 13:12 | External Medical Summary | Summary of Care ---
Author Name Unknown Organization [facility] Address [address] [place] [place] [address] Phone [phone] Care Team Providers Care Core Microarchitect Name Role Phone Ruth Brandon MD Primary Care Provider + Encounter Details Date Type Department Care Team (Late st Contact Info) Description 05/27/2024 Orders Only PATIENT PORTAL DO NOT DELETE THIS DEPT USED BY [place] [id number] Allergies Active Allergy Reactions Criticality Noted Date [...] aorta 06/23/2023 Atherosclerosis of coronary artery of [place] heart without angina pectoris 06/23/2023 Atrial thrombus [...] HX OF BREAST MALIGNANCY - ri ght, [id number], 200702/26/2011 10/04/2013 Polyneuropathy in other dise ases [...] mRNA, LNP-s, No Pre serve, 2-Dose Series ([employer]) 07/19/2021,11/06/2020,10/11/2020 COVID-19, LNP-s, No Preserve , Sony-sucrose, Ages 12+ ([employer]) 12/27/2021 COVID-19, MRNA-LNP, 23-24, P F, 30 MCG/0.3 mL, 12 YRS AND ABOVE, IM ([facility]) 07/13/2023 COVID-19, MRNA-LNP, 24-25, P R, 30MCG/0.3ML, IM, 12YRS AND ABOVE ([employer]) 04/28/2024 Covid-19, Mrna, Lnp-s, Pf, B ivalent, [...] Description 05/27/2024 5:10 PM EDT [facility] [address] [place] [address] [facility] [address] [place] [address] 05/30/2024 3:30 PM EDT Office Visit Neurosurgery, [place] [address] [place] [address] Jaswinder Kahn MD, PhD [address] [place] [address] 06/20/2024 1:30 PM EST Hem/Onc Treatment Hematology/Oncology Treatment, [place] [address] [place] [phone] Christin, Chair 8 Hem Onc [facility] 200 [place] [place] [address] 08/02/2024 10:20 AM EST Office [facility] [address] [place] [address] Nicki Gomez DPM [address] [place] [address] 10/04/2024 3:00 PM EST Office Visit General Internal Medicine [facility] [address] [place] [place] [address] Ruth Brandon MD 200 [facility] [place] [address] 11/22/2024 2:00 PM EDT [facility] [address] [place] [address] Rashmi Graham PA-C [address] [place] [place] [address] 04/28/2025 1:40 PM EDT Office Visit Rheumatology [facility] [address] [place], [place] [address] Sergio Coughlin MD [address] [employer] [place] [address] Scheduled Procedures Name Priority Associated Diagnoses Date/Ti [...] D LEVEL ONCE IN A LIFETIME-USE SMARTSET# [id number] Completed 04/20/2024, 02/10/2023, 03/18/2021, Additional history exists [...] this encounter Medical Devices Implanted Type Area Pediatrician Managing Partner Device Identifier Shelf Expiration Date Model / Serial / Lot Port 6fr Chronoflex [id number] - [id number] Implanted:Qty: 1 on 02/22/2008 at [facility] [address] Left: Chest CR BARD : [employer] [id number] / / [id number] documented as of this encounter Advance Directives Documents on File Type Date Recorded Patient Police Detention Attendant Expl anation Advance Directives and Living Will [...] 1:06 PM 01/16/2008 7:05 PM Care Teams Core Microarchitect Relationship Specialty Start Date End Date Ruth Brandon MD [address] [place] [address] [place] [address] PCP - General Internal Medicine 04/25/21 documented as of this encounter
--- OUTSIDE RECORDS SUMMARY | 2024-07-03 13:12 | External Medical Summary | Summary of Care ---
Author Name Unknown Organization [facility] Address [address] [place] [address] Phone [phone] Care Team Providers Care Marking Room Supervisor Name Role Phone Ruth Brandon MD Primary Care Provider + Reason for Visit * Reason Onset Date Comments Appointment 05/23/2024 Opperteressa Encounter Details Date Type Department Care Team (Late st Contact Info) Description 05/23/2024 Telephone Hematology/Oncology [facility] [place] 200 [facility] [place] [address] Oc Stevens MD 0633 [facility] [place] [address] Appointment ([place]) Allergies Active Allergy Reactions [...] aorta 06/23/2023 Atherosclerosis of coronary artery of [place] heart without angina pectoris 06/23/2023 Atrial thrombus [...] HX OF BREAST MALIGNANCY - ri ght, [id number], 200702/26/2011 10/04/2013 Polyneuropathy in other dise ases [...] mRNA, LNP-s, No Pre serve, 2-Dose Series ([employer]) 07/19/2021,11/06/2020,10/11/2020 COVID-19, LNP-s, No Preserve , Sony-sucrose, Ages 12+ ([employer]) 12/27/2021 COVID-19, MRNA-LNP, 23-24, P F, 30 MCG/0.3 mL, 12 YRS AND ABOVE, IM ([facility] 07/13/2023 COVID-19, MRNA-LNP, 24-25, P R, 30MCG/0.3ML, IM, 12YRS AND ABOVE (P[employer]) 04/28/2024 Covid-19, Mrna, Lnp-s, Pf, B ivalent, 30 Mcg, IM, 12 yrs and above ([employer]) 07/17/2022 Influenza, Whole Virus 09/15/1985 Pneumococcal Conjugate [...] is calling, patient is currently admitted to [facility] so her reclast appt today needs [...] 05/27/2024 5:10 PM EDT [facility] [address] [place] [address] [facility] [place] 132 [place] [address] 05/30/2024 3:30 PM EDT Office Visit [facility], [address] [place] [id number] Jaswinder Kahn MD, PhD [address] [facility], [place] [address] 06/20/2024 1:30 PM EST Hem/Onc Treatment Hematology/Oncology [facility] [address] [place] [phone] Park, Chair 8 Hem Onc [facility] 200 [facility] [place] [address] 08/02/2024 10:20 AM EST Office Visit Podiatry [facility] 132 [facility] [place] [address] Nicki Gomez DPM 132 [facility] [place] [address] 10/04/2024 3:00 PM EST Office Visit General Internal Medicine [facility] 200 [facility] [place] [address] Ruth Brandon MD 200 [facility] [place] [address] 11/22/2024 2:00 PM EDT Office Visit Cardiology, [facility] [address] [place] [address] Rashmi Graham, PADamian 132 [facility] [place] [address] 04/28/2025 1:40 PM EDT Office Visit Rheumatology [address] [place] [address] Oc Stevens MD [address] [place] [address] [place] [address] Scheduled Orders Name Type Priority Associated Diagnoses [...] 05/06/2025 05/06/2022, 110 01/2017 TSH 05/12/2025 05/12/2024, 020 01/2024, 05/06/2022, Additional history exists GFR 05/24/2025 05/24/2024, 0 02/2024, 05/12/2024, Additional history exists DTap/Tdap Vaccines (3 - Td or Tdap) 04/29/2026 04/29/2016, 03/02/2006 Pneumococcal Vaccine: 65+ Years Completed 04/04/2015, 09/28/2012, 10/28/2006 Zoster Vaccines Completed 01/15/2019, 02/2018, 04/02/2011 VITAMIN D LEVEL ONCE IN A LIFETIME-USE SMARTSET# [id number] Completed 04/20/2024, 02/10/2023, 03/18/2021, Additional history exists [...] this encounter Medical Devices Implanted Type Area Director Dermatology Device Identifier Shelf Expiration Date Model / Serial / Lot Port 6fr Chronoflex [id number] - [id number] Implanted:Qty: 1 on 02/22/2008 at OR [facility] Left: Chest CR BARD : [employer] [id number] / / [id number] documented as of this encounter Visit Diagnoses Diagnosis Senile osteoporosis- Primary Atrial thrombus- Primary Other ill-defined heart disease Thrombus due to any device, implant or graft, initial encounter documented in this encounter Advance Directives Documents on File Type Date Recorded Patient Manager Of Marketing Expl anation Advance Directives and Living Will [...] 1:06 PM 01/16/2008 7:05 PM Care Teams Marking Room Supervisor Relationship Specialty Start Date End Date Ruth Brandon MD [address] [place] [address] PCP - General Internal Medicine 04/25/21 documented as of this encounter
--- OUTSIDE RECORDS SUMMARY | 2024-07-03 13:12 | External Medical Summary | Summary of Care ---
Author Name Unknown Organization [facility] Address [address] [place] [place] [address] Phone [phone] Care Team Providers Care Clinical Trial Specialist Name Role Phone Ruth Brandon MD Primary Care Provider + Reason for Visit * Reason Onset Date Comments Appointment 05/23/2024 Opperteressa Encounter Details Date Type Department Care Team (Late st Contact Info) Description 05/23/2024 Telephone Hematology/Oncology [facility] [place] 200 [facility] [place] [address] Sergio Coughlin MD 3208 [facility] [place], [place] [id number] Appointment ([place]) Allergies Active Allergy Reactions Criticality [...] aorta 06/23/2023 Atherosclerosis of coronary artery of [place] heart without angina pectoris 06/23/2023 Atrial [...] HX OF BREAST MALIGNANCY - ri ght, [id number], 200702/26/2011 10/04/2013 Polyneuropathy in other dise ases [...] mRNA, LNP-s, No Pre serve, 2-Dose Series ([employer]) 07/19/2021,11/06/2020,10/11/2020 COVID-19, LNP-s, No Preserve , Sony-sucrose, Ages 12+ ([employer]) 12/27/2021 COVID-19, MRNA-LNP, 23-24, P F, 30 MCG/0.3 mL, 12 YRS AND ABOVE, IM ([facility]) 07/13/2023 COVID-19, MRNA-LNP, 24-25, P R, 30MCG/0.3ML, IM, 12YRS AND ABOVE ([employer]) 04/28/2024 Covid-19, Mrna, Lnp-s, Pf, B ivalent, [...] EDT Moved apt to 06/20 left message [facility] nursing * Telephone Encounter - Swati Stock OSA - 05/23/2024 8:04 AM EDT Spouse Trace is calling, patient is currently admitted to [facility] so her reclast appt today needs [...] Description 05/25/2024 5:10 PM EDT [facility] [place] 132 [facility] [place] [address] [facility] [place] [address] 06/20/2024 1:30 PM EST Hem/Onc Treatment Hematology/Oncology Treatment, [place] 200 [facility] [place] [phone] Christin, Chair 8 Hem Onc [address] [place] [address] 08/02/2024 10:20 AM EST [facility] [place] [address] [place] [address] Nicki Gomez DP 132 [facility] [place] [address] 10/04/2024 3:00 PM EST Office Visit General Internal Medicine [facility] [place] 200 [facility] [place] [address] Ruth Brandon MD 200 [facility] [place] [address] 11/22/2024 2:00 PM EDT [facility] 132 [facility] [place] [address] Rashmi Graham, PAPatriceC [address] [place] [address] 04/28/2025 1:40 PM EDT Office Visit Rheumatology [facility] [address] [place] [address] Sergio Coughlin MD [address] [place] [address] Scheduled Procedures Name Priority Associated Diagnoses Date/Ti [...] D LEVEL ONCE IN A LIFETIME-USE SMARTSET# [id number] Completed 04/20/2024, 02/10/2023, 03/18/2021, Additional history exists [...] encounter Medical Devices Implanted Type Area City Wellness Coordinator Device Identifier Shelf Expiration Date Model / Serial / Lot Port 6fr Chronoflex [id number] - [id number] Implanted:Qty: 1 on 02/22/2008 at OR [facility] Left: Chest CR BARD : [employer] [id number] / / [id number] documented as of this encounter Advance Directives [...] 1:06 PM 01/16/2008 7:05 PM Care Teams Clinical Trial Specialist Relationship Specialty Start Date End Date Ruth Brandon MD [facility] [place] [address] PCP - General Internal Medicine 04/25/21 documented as of this encounter
--- OUTSIDE RECORDS SUMMARY | 2024-07-03 13:12 | External Medical Summary ---
Author Name Unknown Address Unknown Organization [id number]:LABORATORY [facility] - [address] [facility] [address] [place] [address] Laboratory Report Ordering Provider Test Date Status BELEM AMADOR 05/25/2024 06:03:00 Final Observation Date Value Abnormality Reference (Units ) Status WBC, Total 05/25/2024 06:03:00 5.19 4.00-10.80 (K/uL) Final RBC 05/25/2024 06:03:00 2.72 3.85-5.15 (M/uL) Final Hemoglobin 05/25/2024 06:03:00 8.5 Below low normal 12.0-15.3 (g/dL) Final HCT 05/25/2024 06:03:00 27.4 Below low normal 36.0-45.2 (%) Final MCV 05/25/2024 06:03:00 100.7 81.5-97.5 (fL) Final MCH 05/25/2024 06:03:00 31.3 27.0-34.0 (pg) Final MCHC 05/25/2024 06:03:00 31.0 32.0-36.0 (g/dL) Final RDW 05/25/2024 06:03:00 20.7 11.5-15.5 (%) Final Platelets 05/25/2024 06:03:00 150 140-400 (K/uL) Final MPV 05/25/2024 06:03:00 9.2 6.6-11.1 (fL) Final Nucleated erythrocytes/100 leukocytes [Ratio] in Blood by Automated count 05/25/2024 06:03:00 0 <=0 (/100 WBCs) Final Performing Location LABORATORY [facility] - [address] [place] [address]
--- OUTSIDE RECORDS SUMMARY | 2024-07-03 13:12 | External Medical Summary ---
Author Name Unknown Address Unknown Organization [id number]:LABORATORY [facility] - [address] [place] [address] Laboratory Report Ordering Provider Test Date Status HIREN SILVA 05/24/2024 09:15:00 Final Observation Date Value Abnormality Reference (Units ) Status ABO 05/24/2024 09:15:00 O Final RH 05/24/2024 09:15:00 Positive Final RED BLOOD CELL ANTIBODY SCREEN 05/24/2024 09:15:00 Negative Final SPECIMEN EXPIRATION DATE 05/24/2024 09:15:00 05/27/2024 23:59 Final Performing Location LABORATORY [facility] - [address] [place] [address]
--- OUTSIDE RECORDS SUMMARY | 2024-07-03 13:12 | External Medical Summary | Summary of Care ---
Author Name Unknown Organization [facility] Address [address] [facility] [place] [address] Phone [phone] Care Team Providers Care Career Placement Specialist Name Role Phone Ruth Brandon MD Primary Care Provider + Encounter Details Date Type Department Care Team (Late st Contact Info) Description 05/24/2024 Result Scan Unspecified Department Ramsey Gonsalez MD [address] [place] [address] <No scans attached> Allergies Active Allergy Reactions Criticality Noted Date Comments Adhesive Tape Other (Please comment) 01/24/2008 Welts, blisters Bee Stings 02/14/2003 Bee Venom Hives 10/17/2019 Iodine Hives 10/17/2019 Ivp Dye 01/10/1998 hives documented as of this encounter (statuses as of 05/24/2024) Medications Medication Sig Dispensed Refills Start Date End Date Status levETIRAcetam 500 MG Oral Tablet (Keppra) Take 1 Tablet by mouth in the morning and 1 Tablet before bedtime. Do all this for 13 days. 26 Tablet 05/24/2024 Active Pantoprazole Sodium 40 MG Oral Tablet Delayed Release (Protonix) Take 1 Tablet by mouth in the morning and 1 Tablet before bedtime. 60 Tablet 05/24/2024 4 Active VITAMIN B-6 100 MG PO TABS Take [...] Tablet 3 09/08/2023 5 Suspended Additional Information Metoprolol Succinate ER 25 MG Oral Tablet [...] Active Problems Problem Noted Date Diagnosed Date PAF (paroxysmal atrial fibrillation) 05/24/2024 Chronic anticoagulation 05/24/2024 Acute blood loss anemia 05/24/2024 AVM (arteriovenous malformat ion) of stomach, acquired with hemorrhage 05/24/2024 Nonischemic cardiomyopathy 03/17/2024 Chronic atrial fibrillation 12/29/2023 Atherosclerosis of aorta 06/23/2023 Atherosclerosis of coronary artery of [place] heart without angina pectoris 06/23/2023 Atrial thrombus [...] HX OF BREAST MALIGNANCY - ri ght, [id number], 200702/26/2011 10/04/2013 Polyneuropathy in other dise ases [...] mRNA, LNP-s, No Pre serve, 2-Dose Series ([facility]) 07/19/2021,11/06/2020,10/11/2020 COVID-19, LNP-s, No Preserve , Sony-sucrose, Ages 12+ (Pfizer) 12/27/2021 COVID-19, MRNA-LNP, 23-24, P F, 30 MCG/0.3 mL, 12 YRS AND ABOVE, IM ([facility]) 07/13/2023 COVID-19, MRNA-LNP, 24-25, P R, 30MCG/0.3ML, IM, 12YRS AND ABOVE ([facility]) 04/28/2024 Covid-19, Mrna, Lnp-s, Pf, B ivalent, [...] Description 05/25/2024 5:10 PM EDT [facility] [address] [place] [address] [place] [facility] 132 [place] [address] 06/20/2024 1:30 PM EST Hem/Onc Treatment Hematology/Oncology Treatment, [place] [address] [facility] [address] [place] [phone] Christin, Chair 8 Hem Onc [address] [place] [address] 08/02/2024 10:20 AM EST Office Visit Podiatry [facility] [address] [place] [address] Nicki Gomez DPM 132 [place] [address] 10/04/2024 3:00 PM EST Office Visit General Internal Medicine [facility] 200 [facility] [place] [address] Ruth Brandon MD 200 [facility] [place] [address] 11/22/2024 2:00 PM EDT Office Visit Cardiology, [facility] 132 [place] [address] Rashmi Graham PADamian 132 [place] [address] 04/28/2025 1:40 PM EDT Office Visit Rheumatology [address] [place] [address] Sergio Coughlin MD [address] [place] [address] [place] [address] Scheduled Procedures Name Priority Associated Diagnoses Date/Ti [...] D LEVEL ONCE IN A LIFETIME-USE SMARTSET# [id number] Completed 04/20/2024, 02/10/2023, 03/18/2021, Additional history exists [...] this encounter Medical Devices Implanted Type Area Register Of Deeds Device Identifier Shelf Expiration Date Model / Serial / Lot Port 6fr Chronoflex [id number] - [id number] Implanted:Qty: 1 on 02/22/2008 at [place] [facility] [place] [facility] Left: Chest CR BARD : [employer] [id number] / / [id number] documented as of this encounter Procedures Procedure Name Priority Date/Time Associated Diagnosis Comments CARDIOLOGY SCANNED RESULT 05/24/2024 documented in this encounter Results * CARDIOLOGY SCANNED RESULT (05/24/2024) 05/24/2024 Ramsey Gonsalez MD OTHER documented in this encounter Advance Directives * [...] 1:06 PM 01/16/2008 7:05 PM Care Teams Career Placement Specialist Relationship Specialty Start Date End Date Ruth Brandon MD [address] [place] [address] [place] [address] PCP - General Internal Medicine 04/25/21 documented as of this encounter
--- OUTSIDE RECORDS SUMMARY | 2024-07-03 13:12 | External Medical Summary ---
Author Name Unknown Address Unknown Organization K01:LABORATORY [facility] - 100 [facility] [place] [address] Laboratory Report Ordering Provider Test Date Status HIREN SILVA 05/24/2024 09:15:00 Final Observation Date Value Abnormality Reference (Units ) Status BUN 05/24/2024 09:15:00 8 6-20 (mg/dL) Final Creatinine 05/24/2024 09:15:00 0.8 0.5-1.0 (mg/dL) Final Glomerular filtration rate/1.73 sq M.predicted [Volume Rate/Area] in Serum, Plasma or Blood by Creatinine-based formula (CKD-EPI) 05/24/2024 09:15:00 72 >=60 (mL/min) Final eGFR is calculated based on the CKD-EPI 2020 equation. Sodium 05/24/2024 09:15:00 139 135-146 (m mol/L) Final Potassium 05/24/2024 09:15:00 3.4 Below low normal 3.5 -5.1 (mmol/L) Final Cl 05/24/2024 09:15:00 104 98-107 (mm ol/L) Final CO2 05/24/2024 09:15:00 28 22-32 (mmo l/L) Final Anion gap 05/24/2024 09:15:00 7 7-15 (mmol /L) Final Glucose 05/24/2024 09:15:00 113 70-120 (mg /dL) Final Albumin 05/24/2024 09:15:00 3.2 Below low normal 3.8 -5.0 (g/dL) Final AST (Aspartate aminotransferase) 05/24/2024 09:15:00 27 10-35 (U/L) Fin al Alk Phos 05/24/2024 09:15:00 54 35-130 (U/ L) Final Bilirubin, Total 05/24/2024 09:15:00 1.0 <=1 .2 (mg/dL) Final Calcium 05/24/2024 09:15:00 8.4 8.4-10.2 ( mg/dL) Final Protein 05/24/2024 09:15:00 5.8 Below low normal 6.0 -8.3 (g/dL) Final ALT (Alanine aminotransferase) 05/24/2024 09:15:00 16 10-35 (U/L) Elbert valerio Performing Location LABORATORY [facility] - [address] [facility] [address]
--- OUTSIDE RECORDS SUMMARY | 2024-07-03 13:13 | External Medical Summary ---
Author Name Unknown Address Unknown Organization K01:LABORATORY [facility] - [facility] [address] [facility] [address] [facility] [address] Laboratory Report Ordering Provider Test Date Status BELEM AMADOR 05/24/2024 06:01:15 Final Observation Date Value Abnormality Reference (Units ) Status Staphylococcus aureus methicillin resistance SCCmec [Presence] in Nose by CRUZ with probe detection 05/24/2024 06:01:15 Negative Negative Final No Methicillin resistant Sta phylococcus aureus detected by PCR (amplified probe). Methicillin susceptible Staphylococcus aureus DNA [Presence] in Specimen by CRUZ with probe detection 05/24/2024 06:01:15 Positive Abnormal Negative Final Staphylococcus aureus detect ed by PCR (amplified probe). Performing Location LABORATORY [facility] - [address] [place] [address]
--- OUTSIDE RECORDS SUMMARY | 2024-07-03 13:13 | External Medical Summary | Summary of Care ---
Author Name Unknown Organization [facility] Address [address] [facility] [address] Phone [phone] Care Team Providers Care Cabinetmaker Supervisor Name Role Phone Ruth Brandon MD Primary Care Provider + Reason for Visit * Reason Comments Dosage Adjustment Via Phone (anticoag Cl inic) Encounter Details Date Type Department Care Team (Latest Contact Info) Description 05/23/2024 5:10 PM EDT Anticoagulation Pharmacy, [facility] 132 [facility] [place] [address] [facility] [address] Atrial thrombus*; Thrombus due to any device, implant or graft, initial encounter Allergies Active Allergy Reactions Criticality Noted Date Comments Adhesive Tape Other (Please comment) 01/24/2008 Welts, blisters Bee Stings 02/14/2003 Bee Venom Hives 10/17/2019 Iodine Hives 10/17/2019 Ivp Dye 01/10/1998 hives documented as of this encounter (statuses as of 05/23/2024) Medications Medication Sig Dispensed Refills Start Date [...] as of this encounter (statuses as of 05/23/2024) Active Problems Problem Noted Date Diagnosed Date Nonischemic cardiomyopathy 03/17/2024 Chronic atrial fibrillation 12/29/2023 Atherosclerosis of aorta 06/23/2023 Atherosclerosis of coronary artery of [place] heart without angina pectoris 06/23/2023 Atrial thrombus [...] as of this encounter (statuses as of 05/23/2024) Resolved Problems Problem Noted Date Diagnosed Date [...] HX OF BREAST MALIGNANCY - ri ght, [id number], 200702/26/2011 10/04/2013 Polyneuropathy in other dise ases [...] as of this encounter (statuses as of 05/23/2024) Immunizations Name Administration Dates Next Due COVID-19 mRNA, LNP-s, No Pre serve, 2-Dose Series ([employer]) 07/19/2021,11/06/2020,10/11/2020 COVID-19, LNP-s, No Preserve , Sony-sucrose, Ages 12+ (Dodon[employer]) 12/27/2021 COVID-19, MRNA-LNP, 23-24, P F, 30 MCG/0.3 mL, 12 YRS AND ABOVE, IM ([employer]) 07/13/2023 COVID-19, MRNA-LNP, 24-25, P R, 30MCG/0.3ML, IM, 12YRS AND ABOVE (Dodonation-Comirnaty) 04/28/2024 Covid-19, Mrna, Lnp-s, Pf, B ivalent, [...] Progress Notes * Tete Guerrero RPh - 05/23/2024 10:29 AM EDT Patient remains admitted at [facility] at this time. Follow up in 2 days for discharge. Tete Guerrero, Pharm D, BCACP Clinical Pharmacist 05/23/2024, 10:30 AM documented in this encounter Plan of Treatment Upcoming Encounters Date Type Department Care Team (Late st Contact Info) Description 05/25/2024 5:10 PM EDT Anticoagulation Pharmacy, [facility] 132 [facility] [place] [address] [facility] 132 [facility] [place] [address] 06/20/2024 1:30 PM EST Hem/Onc Treatment Hematology/Oncology Treatment, [place] 200 [facility] [address] [place] [phone] Christin, Chair 8 Hem Onc [facility] 200 [facility] [place] [address] 08/02/2024 10:20 AM EST Office Visit Podiatry [facility] [address] [place] [address] Nicki Gomez, HELLEN [address] [place] [address] 10/04/2024 3:00 PM EST Office Visit General Internal Medicine [facility] [address] [place] [address] Ruth Brandon MD 200 [facility] [place] [address] 11/22/2024 2:00 PM EDT Office Visit Cardiology, [facility] [address] [place] [address] Rashmi Graham, PADamian [address] [place] [address] 04/28/2025 1:40 PM EDT Office Visit Rheumatology [place] [address] [place], [place] [address] Sergio Coughlin MD [facility] [place] [address] Scheduled Procedures Name Priority Associated Diagnoses Date/Ti [...] 05/06/2025 05/06/2022, 110 01/2017 GFR 05/12/2025 05/12/2024, 0 11/2023, 09/22/2023, Additional history exists TSH 05/12/2025 05/12/2024, 0 01/2024, 05/06/2022, Additional history exists DTap/Tdap Vaccines (3 - Td or Tdap) 04/29/2026 04/29/2016, 03/02/2006 Pneumococcal Vaccine: 65+ Years Completed 04/04/2015, 09/28/2012, 10/28/2006 Zoster Vaccines Completed 01/15/2019, 0 02/2018, 04/02/2011 VITAMIN D LEVEL ONCE IN A LIFETIME-USE SMARTSET# [id number] Completed 04/20/2024, 02/10/2023, 03/18/2021, Additional history exists [...] Medical Devices Implanted Type Area Golf Course Laborer Device Identifier Shelf Expiration Date Model / Serial / Lot Port 6fr Chronoflex [id number] - [id number] Implanted:Qty: 1 on 02/22/2008 at [place] [facility] [place] [facility] Left: Chest CR BARD : [employer] [id number] / / [id number] documented as of this encounter Visit Diagnoses [...] 1:06 PM 01/16/2008 7:05 PM Care Teams Cabinetmaker Supervisor Relationship Specialty Start Date End Date Ruth Brandon MD 200 [place] [address] PCP - General Internal Medicine 04/25/21 documented as of this encounter
--- OUTSIDE RECORDS SUMMARY | 2024-07-03 13:13 | External Medical Summary ---
Author Name Unknown Address Unknown Organization K01:[facility] - [address] [place] [address] Laboratory Report Ordering Provider Test Date Status HIREN SILVA 05/24/2024 09:15:00 Final Observation Date Value Abnormality Reference (Units ) Status ABO 05/24/2024 09:15:00 O Final RH 05/24/2024 09:15:00 Positive Final Performing Location LAB[facility] - [address] [place] [address]
--- OUTSIDE RECORDS SUMMARY | 2024-07-03 13:13 | External Medical Summary ---
Author Name Unknown Address Unknown Organization K01:LABORATORY C - [address] [place] [address] Laboratory Report Ordering Provider Test Date Status BELEM AMADOR 05/23/2024 23:33:00 Final Observation Date Value Abnormality Reference (Units ) Status Phosphate 05/23/2024 23:33:00 3.2 2.5-4.8 (m g/dL) Final Performing Location LABORATORY [facility] - [address] [place] [address]
--- OUTSIDE RECORDS SUMMARY | 2024-07-03 13:13 | External Medical Summary | Summary of Care ---
Author Name Unknown Organization [facility] Address [address] [facility] [place] [address] Phone [phone] Care Team Providers Care Nurse Gynecology Name Role Phone Ruth Brandon MD Primary Care Provider + Reason for Visit * Reason Onset Date Comments Appointment 05/23/2024 Oproxana Encounter Details Date Type Department Care Team (Late st Contact Info) Description 05/23/2024 Telephone Hematology/Oncology [facility] [place] [address] [facility] [place] [address] Sergio Coughlin MD [address] [facility] [place] [address] Appointment ([place]) Allergies Active Allergy Reactions [...] aorta 06/23/2023 Atherosclerosis of coronary artery of [place] heart without angina pectoris 06/23/2023 Atrial thrombus [...] HX OF BREAST MALIGNANCY - ri ght, [id number], 200702/26/2011 10/04/2013 Polyneuropathy in other dise ases [...] mRNA, LNP-s, No Pre serve, 2-Dose Series ([employer].) 07/19/2021,11/06/2020,10/11/2020 COVID-19, LNP-s, No Preserve , Sony-sucrose, Ages 12+ ([employer].) 12/27/2021 COVID-19, MRNA-LNP, 23-24, P F, 30 MCG/0.3 mL, 12 YRS AND ABOVE, IM (KnowledgeMill-ComirnatSherpaa) 07/13/2023 COVID-19, MRNA-LNP, 24-25, P R, 30MCG/0.3ML, IM, 12YRS AND ABOVE ([employer]night[employer], Inc.-Comirnaty) 04/28/2024 Covid-19, Mrna, Lnp-s, Pf, B ivalent, [...] encounter Miscellaneous Notes * Telephone Encounter - Cait Schwartz OSA - 05/23/2024 10:16 AM EDT Moved apt to 06/20 left message FYI nursing * Telephone Encounter - Swati Stock OSA - 05/23/2024 8:04 AM EDT Spouse Trace is calling, patient is currently admitted to [facility] so her reclast appt today needs armaan [...] Description 05/23/2024 5:10 PM EDT Anticoagulation Pharmacy, [facility] 132 [facility] [place] [address] [facility] 132 [facility] [place] [address] Atrial thrombus*; Thrombus due to any device, implant or graft, initial encounter 05/25/2024 5:10 PM EDT Anticoagulation Pharmacy, [facility] 132 [facility] [place] [address] [facility] 132 [facility] [place] [address] 06/20/2024 1:30 PM EST Hem/Onc Treatment Hematology/Oncology Treatment, [place] [address] [place] [phone] Christin, Chair 8 Hem On[address] [place] [address] 08/02/2024 10:20 AM EST Office Visit Podiatry [facility] 132 [facility] [place] [address] Nicki Gomez DPM 132 [facility] [place] [address] 10/04/2024 3:00 PM EST Office Visit General Internal Medicine [facility] [place] [address] [place] [address] Ruth Brandon MD [address] [facility] [place] [address] 11/22/2024 2:00 PM EDT Office Visit Cardiology, [facility] 132 [facility] [place] [address] Rashmi Graham PA-C [address] [place] [address] 04/28/2025 1:40 PM EDT Office Visit Rheumatology [facility] [address] [place] [address] Sergio Coughlin MD [address] [place] [address] Scheduled Procedures Name Priority Associated Diagnoses Date/Ti [...] 01/12/20 24 Albumin/Creatinine Ratio 05/06/2025 05/06/2022, 01/2017 GFR 05/12/2025 05/12/2024, 11/2023, 09/22/2023, Additional history exists TSH 05/12/2025 05/12/2024, 01/2024, 05/06/2022, Additional history exists DTap/Tdap Vaccines (3 - Td or Tdap) 04/29/2026 04/29/2016, 03/02/2006 Pneumococcal Vaccine: 65+ Years Completed 04/04/2015, 09/28/2012, 10/28/2006 Zoster Vaccines Completed 01/15/2019, 02/2018, 04/02/2011 VITAMIN D LEVEL ONCE IN A LIFETIME-USE SMARTSET# [id number] Completed 04/20/2024, 02/10/2023, 03/18/2021, Additional history exists [...] this encounter Medical Devices Implanted Type Area Cake Tester Device Identifier Shelf Expiration Date Model / Serial / Lot Port 6fr Chronoflex [id number] - [id number] Implanted:Qty: 1 on 02/22/2008 at OR [facility] Left: Chest CR BARD : ACCESS SYSTEMS [id number] / / [id number] documented as of this encounter Advance Directives * Full Code (Latest Code Status on File) Date Activated Date Inactivated Comments 02/22/2008 6:21 PM 02/25/2008 5:28 PM * Full Code Date Activated Date Inactivated Comments 02/22/2008 11:42 AM 02/22/2008 6:21 PM * Full Code Date Activated Date Inactivated Comments 01/14/2008 1:06 PM 01/16/2008 7:05 PM Care Teams Nurse Gynecology Relationship Specialty Start Date End Date Ruth Brandon MD 200 [place] [address] PCP - General Internal Medicine 04/25/21 documented as of this encounter
--- OUTSIDE RECORDS SUMMARY | 2024-07-03 13:13 | External Medical Summary | Summary of Care ---
Author Name Unknown Organization [facility] Address [address] [facility] [address] Phone [phone] Care Team Providers Care Group Therapist Name Role Phone Ruth Brandon MD Primary Care Provider + Encounter Details Date Type Department Care Team (Late st Contact Info) Description 05/23/2024 Orders Only General Internal Medicine [facility] [place] 200 [facility] [place], [place] [phone] Ruth Brandon MD 200 [facility] [place] [address] Allergies Active Allergy Reactions Criticality Noted Date [...] aorta 06/23/2023 Atherosclerosis of coronary artery of [place] heart without angina pectoris 06/23/2023 Atrial [...] HX OF BREAST MALIGNANCY - ri ght, [id number], 200702/26/2011 10/04/2013 Polyneuropathy in other dise ases [...] mRNA, LNP-s, No Pre serve, 2-Dose Series ([employer]) 07/19/2021,11/06/2020,10/11/2020 COVID-19, LNP-s, No Preserve , Sony-sucrose, Ages 12+ ([employer]) 12/27/2021 COVID-19, MRNA-LNP, 23-24, P F, 30 MCG/0.3 mL, 12 YRS AND ABOVE, IM (Monogram-Comirnat) 07/13/2023 COVID-19, MRNA-LNP, 24-25, P R, 30MCG/0.3ML, IM, 12YRS AND ABOVE ([employer] Innovations-Precision Repair NetworkirnatAltiostar Networks) 04/28/2024 Covid-19, Mrna, Lnp-s, Pf, B ivalent, 30 Mcg, IM, 12 yrs and above ([employer]) 07/17/2022 Pneumococcal Conjugate Vacc, 13 Valent (Prevnar) [...] Description 05/23/2024 5:10 PM EDT [facility] 132 [place] [address] [address] [place] [facility] [place] 132 [place] [address] Atrial thrombus*; Thrombus due to any device, implant or graft, initial encounter 05/25/2024 5:10 PM EDT [facility] 132 [place] [address] [place], [place] [facility] [place] 132 [place] [address] 06/20/2024 1:30 PM EST Hem/Onc Treatment Hematology/Oncology Treatment, [place] [address] [place] [phone] Christin, Chair 8 Hem Onc [place] [address] [place] [address] 08/02/2024 10:20 AM EST Office Visit Podiatry [facility] [place] [address] Nicki Gomez, DPM [address] [place] [address] 10/04/2024 3:00 PM EST Office Visit General Internal Medicine [facility] 200 [facility] [place] [address] Ruth Brandon MD 200 [facility] [place] [address] 11/22/2024 2:00 PM EDT Office Visit Cardiology, [facility] 132 [facility] [place] [address] Rashmi Graham PA-C [address] [place] [address] 04/28/2025 1:40 PM EDT Office Visit Rheumatology [place] [address] [employer] [place] [address] Sergio Coughlin MD [facility] [place] [address] Scheduled Procedures Name Priority Associated Diagnoses Date/Ti [...] D LEVEL ONCE IN A LIFETIME-USE SMARTSET# [id number] Completed 04/20/2024, 02/10/2023, 03/18/2021, Additional history exists [...] this encounter Medical Devices Implanted Type Area Ironing Worker Device Identifier Shelf Expiration Date Model / Serial / Lot Port 6fr Chronoflex [id number] - [id number] Implanted:Qty: 1 on 02/22/2008 at OR [facility] Left: Chest CR BARD : ACCESS SYSTEMS [id number] / / [id number] documented as of this encounter Procedures Procedure Name Priority Date/Time Associated Diagnosis Comments UPPER ENDOSCOPY, OUTSIDE PROCEDURE Routine 05/22/2024 documented in this encounter Results * UPPER ENDOSCOPY, OUTSIDE PROCEDURE (05/22/2024) 05/22/2024 History Per Patient GASTRO [facility] Organization Address City/State/ZIP Co de Phone Number OUTSIDE LAB (SEE SCANNED REPORT) documented in this encounter Advance Directives * Full Code (Latest Code Status on File) Date Activated Date Inactivated Comments 02/22/2008 6:21 PM 02/25/2008 5:28 PM * Full Code Date Activated Date Inactivated Comments 02/22/2008 11:42 AM 02/22/2008 6:21 PM * Full Code Date Activated Date Inactivated Comments 01/14/2008 1:06 PM 01/16/2008 7:05 PM Care Teams Group Therapist Relationship Specialty Start Date End Date Ruth Brandon MD [address] [place] [address] PCP - General Internal Medicine 04/25/21 documented as of this encounter
--- OUTSIDE RECORDS SUMMARY | 2024-07-03 13:13 | External Medical Summary | Summary of Care ---
Author Name Unknown Organization [facility] Address [address] [place] [address] Phone [phone] Care Team Providers Care Policy Change Clerk Name Role Phone Ruth Brandon MD Primary Care Provider + Encounter Details Date Type Department Care Team (Late st Contact Info) Description 05/22/2024 Telephone [facility] [address] [place] [address] Jaswinder Kahn MD, PhD [address] [place] [address] Allergies Active Allergy Reactions Criticality Noted Date Comments Adhesive Tape Other (Please comment) 01/24/2008 Welts, blisters Bee Stings 02/14/2003 Bee Venom Hives 10/17/2019 Iodine Hives 10/17/2019 Ivp Dye 01/10/1998 hives documented as of this encounter (statuses as of 05/22/2024) Medications Medication Sig Dispensed Refills Start Date [...] as of this encounter (statuses as of 05/22/2024) Active Problems Problem Noted Date Diagnosed Date Nonischemic cardiomyopathy 03/17/2024 Chronic atrial fibrillation 12/29/2023 Atherosclerosis of aorta 06/23/2023 Atherosclerosis of coronary artery of [place] heart without angina pectoris 06/23/2023 Atrial thrombus [...] as of this encounter (statuses as of 05/22/2024) Resolved Problems Problem Noted Date Diagnosed Date [...] HX OF BREAST MALIGNANCY - ri ght, [id number], 200702/26/2011 10/04/2013 Polyneuropathy in other dise ases [...] as of this encounter (statuses as of 05/22/2024) Immunizations Name Administration Dates Next Due COVID-19 mRNA, LNP-s, No Pre serve, 2-Dose Series ([employer]) 07/19/2021,11/06/2020,10/11/2020 COVID-19, LNP-s, No Preserve , Sony-sucrose, Ages 12+ ([employer]) 12/27/2021 COVID-19, MRNA-LNP, 23-24, P F, 30 MCG/0.3 mL, 12 YRS AND ABOVE, IM ([facility]) 07/13/2023 COVID-19, MRNA-LNP, 24-25, P R, 30MCG/0.3ML, [...] encounter Miscellaneous Notes * Telephone Encounter - Jaswinder Kahn MD, PhD - 05/22/2024 4:27 PM EDT Transfer center call regarding spontaneous trace SDH. No trauma. Patient admitted with bloody stools, INR > 9, 2 days ago, INR was normalized, underwent EGD. Yesterday and today complained of headaches, got a CTH showing trace SDH. INR normal today 1.2. Patientis GCS 15, has no neurological deficits. CTH is from 12:48 PM today. Patient was also discussed with tele-neurology Dr. Steinberg. Plan: repeat CTH 6 h after previous scan and contact me again to discuss further. I discussed that the onset of SDH was likely in the setting of INR > 9 2 days ago. No intervention radiologically nor clinically indicated. Management consist of observation and maintaining normalized INR. Discussed with Dr. Steinberg. documented in this encounter Plan of Treatment Upcoming Encounters Date Type Department Care Team (Late st Contact Info) Description 05/23/2024 2:30 PM EDT Hem/Onc Treatment Hematology/Oncology Treatment, [place] [address] [facility] [address] [place] [phone] Christin, Chair 8 Hem Onc [facility] 200 [facility] [place] [address] 05/23/2024 5:30 PM EDT Anticoagulation Pharmacy, [facility] [address] [place] [address] [facility] 132 [facility] [place] [address] 08/02/2024 10:20 AM EST Office Visit Podiatry [facility] [address] [place] [address] Nicki Gomez J[place] [address] [place] [address] 10/04/2024 3:00 PM EST Office Visit General Internal Medicine [facility] 200 [facility] [place] [address] Ruth Brandon MD 200 [facility] [place] [address] 11/22/2024 2:00 PM EDT Office Visit Cardiology, [facility] 132 [facility] [place] [address] Rashmi Graham PA-C [address] [place] [address] 04/28/2025 1:40 PM EDT Office Visit Rheumatology [address] [place] [address] Sergio Coughlin MD [facility] [place] [address] Scheduled Procedures Name Priority Associated Diagnoses Date/Ti [...] Ratio 05/06/2025 05/06/2022, 01/2017 GFR 05/12/2025 05/12/2024, 0 11/2023, 09/22/2023, Additional history exists TSH 05/12/2025 05/12/2024, 0 01/2024, 05/06/2022, Additional history exists DTap/Tdap Vaccines (3 - Td or Tdap) 04/29/2026 04/29/2016, 03/02/2006 Pneumococcal Vaccine: 65+ Years Completed 04/04/2015, 09/28/2012, 10/28/2006 Zoster Vaccines Completed 01/15/2019, 02/2018, 04/02/2011 VITAMIN D LEVEL ONCE IN A LIFETIME-USE SMARTSET# [id number] Completed 04/20/2024, 02/10/2023, 03/18/2021, Additional history exists [...] this encounter Medical Devices Implanted Type Area Ironer Machine Device Identifier Shelf Expiration Date Model / Serial / Lot Port 6fr Chronoflex [id number] - [id number] Implanted:Qty: 1 on 02/22/2008 at [place] [facility] Left: Chest CR BARD : [employer]ESS SYSTEM[employer] [id number] / / [id number] documented as of this encounter Advance Directives * Full Code (Latest Code Status on File) Date Activated Date Inactivated Comments 02/22/2008 6:21 PM 02/25/2008 5:28 PM * Full Code Date Activated Date Inactivated Comments 02/22/2008 11:42 AM 02/22/2008 6:21 PM * Full Code Date Activated Date Inactivated Comments 01/14/2008 1:06 PM 01/16/2008 7:05 PM Care Teams Policy Change Clerk Relationship Specialty Start Date End Date Ruth Brandon MD 200 [place] [address] PCP - General Internal Medicine 04/25/21 documented as of this encounter
--- OUTSIDE RECORDS SUMMARY | 2024-07-03 13:13 | External Medical Summary ---
Author Name Unknown Address Unknown Organization K01:[facility] [place] [place] [facility] [address] [place] [address] Laboratory Report Ordering Provider Test Date Status BELEM AMADOR 05/23/2024 23:33:00 Final Observation Date Value Abnormality Reference (Units ) Status BUN 05/23/2024 23:33:00 9 6-20 (mg/dL) Final Creatinine 05/23/2024 23:33:00 0.9 0.5-1.0 (mg/dL) Final Glomerular filtration rate/1.73 sq M.predicted [Volume Rate/Area] in Serum, Plasma or Blood by Creatinine-based formula (CKD-EPI) 05/23/2024 23:33:00 63 >=60 (mL/min) Final eGFR is calculated based on the CKD-EPI 2020 equation. Sodium 05/23/2024 23:33:00 138 135-146 (m mol/L) Final Potassium 05/23/2024 23:33:00 3.5 3.5-5.1 (m mol/L) Final Cl 05/23/2024 23:33:00 104 98-107 (mm ol/L) Final CO2 05/23/2024 23:33:00 25 22-32 (mmo l/L) Final Anion gap 05/23/2024 23:33:00 9 7-15 (mmol /L) Final Glucose 05/23/2024 23:33:00 111 70-120 (mg /dL) Final Calcium 05/23/2024 23:33:00 8.4 8.4-10.2 ( mg/dL) Final Performing Location [facility] [place] [address] [place] [address]
--- OUTSIDE RECORDS SUMMARY | 2024-07-03 13:13 | External Medical Summary ---
Author Name Unknown Address Unknown Organization K01:[facility]ORY [facility] [place] - [facility] [address] [place] [address] Laboratory Report Ordering Provider Test Date Status BELEM AMADOR 05/23/2024 23:33:00 Final Observation Date Value Abnormality Reference (Units ) Status WBC, Total 05/23/2024 23:33:00 5.38 4.00-10.80 (K/uL) Final RBC 05/23/2024 23:33:00 2.85 3.85-5.15 (M/uL) Final Hemoglobin 05/23/2024 23:33:00 8.6 Below low normal 12.0-15.3 (g/dL) Final HCT 05/23/2024 23:33:00 28.4 Below low normal 36.0-45.2 (%) Final MCV 05/23/2024 23:33:00 99.6 81.5-97.5 (fL) Final MCH 05/23/2024 23:33:00 30.2 27.0-34.0 (pg) Final MCHC 05/23/2024 23:33:00 30.3 32.0-36.0 (g/dL) Final RDW 05/23/2024 23:33:00 19.9 11.5-15.5 (%) Final Platelets 05/23/2024 23:33:00 162 140-400 (K/uL) Final MPV 05/23/2024 23:33:00 9.4 6.6-11.1 (fL) Final Nucleated erythrocytes/100 leukocytes [Ratio] in Blood by Automated count 05/23/2024 23:33:00 1 Above high normal <=0 (/100 WBCs) Final Performing Location LAB[facility]ORY [facility] - [address] [place] [address]
--- OUTSIDE RECORDS SUMMARY | 2024-07-03 13:13 | External Medical Summary | Summary of Care ---
Author Name Unknown Organization [facility] Address [address] [place] [address] Phone [phone] Care Team Providers Care Digital Ad Trafficker Name Role Phone Ruth Brandon MD Primary Care Provider + Reason for Visit * Reason Onset Date Comments Appointment 05/23/2024 Oproxana Encounter Details Date Type Department Care Team (Late st Contact Info) Description 05/23/2024 Telephone Hematology/Oncology [facility] [place] 200 [facility] [place] [address] Sergio Coughlin MD [address] [facility] [place] [address] Appointment ([place]) Allergies Active Allergy Reactions [...] aorta 06/23/2023 Atherosclerosis of coronary artery of [place] heart without angina pectoris 06/23/2023 Atrial thrombus [...] HX OF BREAST MALIGNANCY - ri ght, [id number], 200702/26/2011 10/04/2013 Polyneuropathy in other dise ases [...] mRNA, LNP-s, No Pre serve, 2-Dose Series ([employer]) 07/19/2021,11/06/2020,10/11/2020 COVID-19, LNP-s, No Preserve , Sony-sucrose, Ages 12+ ([employer]) 12/27/2021 COVID-19, MRNA-LNP, 23-24, P F, 30 MCG/0.3 mL, 12 YRS AND ABOVE, IM (Fan[employer]read-Multispectral ImagingirnatBread) 07/13/2023 COVID-19, MRNA-LNP, 24-25, P R, 30MCG/0.3ML, IM, 12YRS AND ABOVE (Shuropody-Comirnaty) 04/28/2024 Covid-19, Mrna, Lnp-s, Pf, B ivalent, [...] calling, patient is currently admitted to [facility] so her reclast appt today needs [...] Description 05/23/2024 5:10 PM EDT [facility], [facility] [place] [address] [place] [address] [facility] [address] [place] [address] Atrial thrombus*; Thrombus due to any device, implant or graft, initial encounter 05/25/2024 5:10 PM EDT Anticoagulation Pharmacy, [facility] [place] [address] [place] [address] [facility] 132 [facility] [place] [address] 06/20/2024 1:30 PM EST Hem/Onc Treatment Hematology/Oncology Treatment, [address] [phone] Christin, Chair 8 Hem On[address] [place] [address] 08/02/2024 10:20 AM EST Office Visit Podiatry [place] [facility] [place] [address] [place] [address] Nicki Gomez, [place] [address] [place] [address] 10/04/2024 3:00 PM EST Office Visit General Internal Medicine [facility] [address] [address] Ruth Brandon MD [address] [place] [address] 11/22/2024 2:00 PM EDT Office Visit Cardiology, [facility] [address] [place] [address] Rashmi Graham PA-C [address] [place] [address] 04/28/2025 1:40 PM EDT Office Visit Rheumatology [facility] [address] [employer] [place] [address] Sergio Coughlin MD [address] [place] [address] Scheduled Procedures Name Priority Associated Diagnoses Date/Ti [...] D LEVEL ONCE IN A LIFETIME-USE SMARTSET# [id number] Completed 04/20/2024, 02/10/2023, 03/18/2021, Additional history exists [...] this encounter Medical Devices Implanted Type Area Harvest Crew Supervisor Device Identifier Shelf Expiration Date Model / Serial / Lot Port 6fr Chronoflex [id number] - [id number] Implanted:Qty: 1 on 02/22/2008 at [place] [facility] Left: Chest CR BARD : ACCESS SYSTEMS [id number] / / [id number] documented as of this encounter Advance Directives * Full Code (Latest Code Status on File) Date Activated Date Inactivated Comments 02/22/2008 6:21 PM 02/25/2008 5:28 PM * Full Code Date Activated Date Inactivated Comments 02/22/2008 11:42 AM 02/22/2008 6:21 PM * Full Code Date Activated Date Inactivated Comments 01/14/2008 1:06 PM 01/16/2008 7:05 PM Care Teams Digital Ad Trafficker Relationship Specialty Start Date End Date Ruth Brandon MD 200 [facility] [place] [address] PCP - General Internal Medicine 04/25/21 documented as of this encounter
--- OUTSIDE RECORDS SUMMARY | 2024-07-03 13:13 | External Medical Summary ---
Author Name Unknown Address Unknown Organization K01:[place] [place] [facility] [address] Laboratory Report Ordering Provider Test Date Status MARJORIEBELEM 05/23/2024 23:33:00 Final Warfarin Therapy
INR: 2 .0-3.0 conventional anticoagulation
INR: 2.5- 3.5 high intensity anticoagulation Observation Date Value Abnormality Reference (Units ) Status PT 05/23/2024 23:33:00 17.6 Above high normal 11 .6-15.2 (seconds) Final INR 05/23/2024 23:33:00 1.4 Above high normal 0. 8-1.2 Final Performing Location [facility] [place] [address] [place] [address]
--- OUTSIDE RECORDS SUMMARY | 2024-07-03 13:13 | External Medical Summary | Summary of Care ---
Author Name Unknown Organization [facility] Address [address] [place] [facility] [place] [address] Phone [phone] Care Team Providers Care Supervisor Stone Name Role Phone Ruth Brandon MD Primary Care Provider + Encounter Details Date Type Department Care Team (Late st Contact Info) Description 05/23/2024 Orders Only Hematology/Oncology [facility] [place] [address] [facility] [place] [address] Sergio Coughlin MD [address] [facility] [place] [address] Allergies Active Allergy Reactions Criticality Noted Date [...] aorta 06/23/2023 Atherosclerosis of coronary artery of [place] heart without angina pectoris 06/23/2023 Atrial thrombus [...] HX OF BREAST MALIGNANCY - ri ght, [id number], 200702/26/2011 10/04/2013 Polyneuropathy in other dise ases [...] mRNA, LNP-s, No Pre serve, 2-Dose Series ([employer]) 07/19/2021,11/06/2020,10/11/2020 COVID-19, LNP-s, No Preserve , Sony-sucrose, Ages 12+ (Ael[employer]s) 12/27/2021 COVID-19, MRNA-LNP, 23-24, P F, 30 MCG/0.3 mL, 12 YRS AND ABOVE, IM ([employer]) 07/13/2023 COVID-19, MRNA-LNP, 24-25, P R, 30MCG/0.3ML, IM, 12YRS AND ABOVE ([employer]) 04/28/2024 Covid-19, Mrna, Lnp-s, Pf, B ivalent, 30 Mcg, IM, 12 yrs and above ([employer]el[employer]s) 07/17/2022 Pneumococcal Conjugate Vacc, 13 Valent (Prevnar) [...] Description 05/23/2024 5:10 PM EDT Anticoagulation Pharmacy, [facility] [address] [place] [address] [facility] [address] [place] [address] Atrial thrombus*; Thrombus due to any device, implant or graft, initial encounter 05/25/2024 5:10 PM EDT Anticoagulation Pharmacy, [facility] [address] [place] [address] [place], [facility] 132 [place] [address] 06/20/2024 1:30 PM EST Hem/Onc Treatment Hematology/Oncology Treatment, [place] [address] [place] [id number] Christin, Chair 8 Hem Onc [address] [facility] [place] [address] 08/02/2024 10:20 AM EST Office Visit Podiatry [facility] [address] [place] [address] Nicki Gomez, HELLEN [address] [place] [address] 10/04/2024 3:00 PM EST Office Visit General Internal Medicine [facility] [address] [facility] [place] [address] Ruth Brandon MD [address] [facility] [place] [address] 11/22/2024 2:00 PM EDT Office Visit Cardiology, [facility] 132 [facility] [place] [address] Rashmi Graham PA-C [address] [place] [address] 04/28/2025 1:40 PM EDT Office Visit Rheumatology [place] [address] [employer] [place], [place] [address] Sergio Coughlin MD [facility] [place], [place] [address] Scheduled Procedures Name Priority Associated Diagnoses Date/Ti [...] D LEVEL ONCE IN A LIFETIME-USE SMARTSET# [id number] Completed 04/20/2024, 02/10/2023, 03/18/2021, Additional history exists [...] this encounter Medical Devices Implanted Type Area Air Drier Machine Operator Device Identifier Shelf Expiration Date Model / Serial / Lot Port 6fr Chronoflex [id number] - [id number] Implanted:Qty: 1 on 02/22/2008 at OR [facility] Left: Chest CR BARD : ACCESS SYSTEMS [id number] / / [id number] documented as of this encounter Advance Directives * Full Code (Latest Code Status on File) Date Activated Date Inactivated Comments 02/22/2008 6:21 PM 02/25/2008 5:28 PM * Full Code Date Activated Date Inactivated Comments 02/22/2008 11:42 AM 02/22/2008 6:21 PM * Full Code Date Activated Date Inactivated Comments 01/14/2008 1:06 PM 01/16/2008 7:05 PM Care Teams Supervisor Stone Relationship Specialty Start Date End Date Ruth Brandon MD [address] [facility] [place] [address] PCP - General Internal Medicine 04/25/21 documented as of this encounter
--- OUTSIDE RECORDS SUMMARY | 2024-07-03 13:13 | External Medical Summary | Summary of Care ---
Author Name Unknown Organization [facility] Address [address] [facility] [address] Phone [phone] Care Team Providers Care Card Placer Name Role Phone Ruth Brandon MD Primary Care Provider + Reason for Visit * Reason Comments Dosage Adjustment Via Phone (anticoag Cl inic) Encounter Details Date Type Department Care Team (Latest Contact Info) Description 05/20/2024 5:30 PM EDT Anticoagulation Pharmacy, [facility] 132 [facility] [place] [address] [facility] 132 [facility] [address] Atrial thrombus*; Thrombus due to any device, implant or graft, initial encounter Allergies Active Allergy Reactions Criticality Noted Date Comments Adhesive Tape Other (Please comment) 01/24/2008 Welts, blisters Bee Stings 02/14/2003 Bee Venom Hives 10/17/2019 Iodine Hives 10/17/2019 Ivp Dye 01/10/1998 hives documented as of this encounter (statuses as of 05/20/2024) Medications Medication Sig Dispensed Refills Start Date [...] as of this encounter (statuses as of 05/20/2024) Active Problems Problem Noted Date Diagnosed Date Nonischemic cardiomyopathy 03/17/2024 Chronic atrial fibrillation 12/29/2023 Atherosclerosis of aorta 06/23/2023 Atherosclerosis of coronary artery of [place] heart without angina pectoris 06/23/2023 Atrial thrombus [...] as of this encounter (statuses as of 05/20/2024) Resolved Problems Problem Noted Date Diagnosed Date [...] HX OF BREAST MALIGNANCY - ri ght, [id number], 200702/26/2011 10/04/2013 Polyneuropathy in other dise ases [...] as of this encounter (statuses as of 05/20/2024) Immunizations Name Administration Dates Next Due COVID-19 mRNA, LNP-s, No Pre serve, 2-Dose Series ([employer]) 07/19/2021,11/06/2020,10/11/2020 COVID-19, LNP-s, No Preserve , Sony-sucrose, Ages 12+ ([employer]) 12/27/2021 COVID-19, MRNA-LNP, 23-24, P F, 30 MCG/0.3 mL, 12 YRS AND ABOVE, IM ([employer]ok[employer]o-Comirnat) 07/13/2023 COVID-19, MRNA-LNP, 24-25, P R, 30MCG/0.3ML, IM, 12YRS AND ABOVE ([employer]-Comirnaty) 04/28/2024 Covid-19, Mrna, Lnp-s, Pf, B ivalent, [...] Progress Notes * Tete Guerrero RPh - 05/20/2024 3:30 PM EDT Patient Phone Numbers Left message for patient. Requested that she call us if going for lab work tonight for dosing through , otherwise will repeat lab work on Wednesday 05/23. Continue holding warfarin until INR repeated. Tete Guerrero, Pharm D, BCACP Clinical Pharmacist 05/20/2024, 3:32 PM * Uma Maritni, subscription crew leader - 05/20/2024 2:04 PM EDT Patient Phone Numbers LVM reminding patient about PT/INR blood work due today. No INR result in process or completed yet at time of call. Will continue to monitor for result or a call back. Thank you, Uma Martini [facility] Electrical Test Engineer II [facility] 05/20/2024,2:04 PM No INR in process/completed and no call back from patient today. [facility] please advise. Thank you, Uma Martini [facility] Electrical Test Engineer II [facility]) 05/20/2024,3:25 PM documented in this encounter Plan of Treatment Upcoming Encounters Date Type Department Care Team (Late st Contact Info) Description 05/23/2024 2:30 PM EDT Hem/Onc Treatment Hematology/Oncology Treatment, [place] [address] [facility] [address] [place] [phone] Christin, Chair 8 Hem Onc [address] [place] [address] 05/23/2024 5:30 PM EDT [facility] [address] [facility] [place] [address] [facility] 132 [facility] [address] 08/02/2024 10:20 AM EST [facility] [place] [address] Nicki Gomez [facility] [address] [facility] [place] [address] 10/04/2024 3:00 PM EST Office Visit General Internal [facility] [place] [address] [place] [address] Ruth Brandon MD 200 [facility] [place] [address] 11/22/2024 2:00 PM EDT Office Visit Cardiology, [facility] [address] [place] [address] Rashmi Graham PA-C [address] [place] [address] 04/28/2025 1:40 PM EDT Office Visit Rheumatology [facility] [address] [employer] [place] [address] Sergio Coughlin MD [address] [place] [address] Scheduled Procedures Name Priority Associated Diagnoses Date/Ti [...] 05/06/2025 05/06/2022, 11/0 01/2017 GFR 05/12/2025 05/12/2024, 090 11/2023, 09/22/2023, Additional history exists TSH 05/12/2025 05/12/2024, 0 01/2024, 05/06/2022, Additional history exists DTap/Tdap Vaccines (3 - Td or Tdap) 04/29/2026 04/29/2016, 03/02/2006 Pneumococcal Vaccine: 65+ Years Completed 04/04/2015, 09/28/2012, 10/28/2006 Zoster Vaccines Completed 01/15/2019, 090 02/2018, 04/02/2011 VITAMIN D LEVEL ONCE IN A LIFETIME-USE SMARTSET# [id number] Completed 04/20/2024, 02/10/2023, 03/18/2021, Additional history exists [...] this encounter Medical Devices Implanted Type Area Flight Test Data Acquisition Technician Device Identifier Shelf Expiration Date Model / Serial / Lot Port 6fr Chronoflex [id number] - [id number] Implanted:Qty: 1 on 02/22/2008 at OR [facility] Left: Chest CR BARD : ACCESS SYSTEMS [id number] / / [id number] documented as of this encounter Visit Diagnoses [...] 1:06 PM 01/16/2008 7:05 PM Care Teams Card Placer Relationship Specialty Start Date End Date Ruth Brandon MD [address] [place] [address] PCP - General Internal Medicine 04/25/21 documented as of this encounter
--- OUTSIDE RECORDS SUMMARY | 2024-07-03 13:13 | External Medical Summary | Summary of Care ---
Author Name Unknown Organization [facility] Address [address] [facility] [place] [address] Phone [phone] Care Team Providers Care Senior Java J2Ee Developer Name Role Phone Ruth Brandon MD Primary Care Provider + Encounter Details Date Type Department Care Team (Late st Contact Info) Description 05/23/2024 Population Health External Data Unspecified Department Allergies Active Allergy Reactions Criticality Noted Date [...] HX OF BREAST MALIGNANCY - ri ght, [id number], 200702/26/2011 10/04/2013 Polyneuropathy in other dise ases [...] mRNA, LNP-s, No Pre serve, 2-Dose Series ([employer]) 07/19/2021,11/06/2020,10/11/2020 COVID-19, LNP-s, No Preserve , Sony-sucrose, Ages 12+ ([employer]) 12/27/2021 COVID-19, MRNA-LNP, 23-24, P F, 30 MCG/0.3 mL, 12 YRS AND ABOVE, IM ([employer]) 07/13/2023 COVID-19, MRNA-LNP, 24-25, P R, 30MCG/0.3ML, IM, 12YRS AND ABOVE ([employer]) 04/28/2024 Covid-19, Mrna, Lnp-s, Pf, B ivalent, [...] 2:30 PM EDT Hem/Onc Treatment Hematology/Oncology Treatment, [place] [address] [facility] [address] Christin, Chair 8 Hem On[address] [place] [address] 05/23/2024 5:30 PM EDT Anticoagulation Pharmacy, [facility] [address] [place] [address] [facility] [address] [place] [address] 08/02/2024 10:20 AM EST Office Visit Podiatry [facility] 132 [place] [address] Nicki Gomez DPM 132 [place] [address] 10/04/2024 3:00 PM EST Office Visit General Internal Medicine [address] [place] [address] Ruth Brandon MD [address] [place], [place] [address] 11/22/2024 2:00 PM EDT Office Visit Cardiology, [facility] [address] [place] [address] Rashmi Graham PA-C [address] [place] [address] 04/28/2025 1:40 PM EDT Office Visit Rheumatology [facility] [address] [employer] [place] [address] Sergio Coughlin MD [address] [employer] [place] [address] Scheduled Procedures Name Priority Associated Diagnoses Date/Ti [...] D LEVEL ONCE IN A LIFETIME-USE SMARTSET# [id number] Completed 04/20/2024, 02/10/2023, 03/18/2021, Additional history exists [...] this encounter Medical Devices Implanted Type Area Airfield Manager Device Identifier Shelf Expiration Date Model / Serial / Lot Port 6fr Chronoflex [id number] - [id number] Implanted:Qty: 1 on 02/22/2008 at OR [facility] Left: Chest CR BARD : ACCESS SYSTEMS [id number] / / [id number] documented as of this encounter Advance Directives * Full Code (Latest Code Status on File) Date Activated Date Inactivated Comments 02/22/2008 6:21 PM 02/25/2008 5:28 PM * Full Code Date Activated Date Inactivated Comments 02/22/2008 11:42 AM 02/22/2008 6:21 PM * Full Code Date Activated Date Inactivated Comments 01/14/2008 1:06 PM 01/16/2008 7:05 PM Care Teams Senior Java J2Ee Developer Relationship Specialty Start Date End Date Ruth Brandon MD 200 [facility] [place] [address] PCP - General Internal Medicine 04/25/21 documented as of this encounter
--- OUTSIDE RECORDS SUMMARY | 2024-07-03 13:13 | External Medical Summary ---
Author Name Unknown Address Unknown Organization K01:[facility] [address] [place] [address] Laboratory Report Ordering Provider Test Date Status MARJORIEBELEM 05/23/2024 23:33:00 Final Observation Date Value Abnormality Reference (Units ) Status Magnesium 05/23/2024 23:33:00 2.1 1.5-2.6 (m g/dL) Final Performing Location [facility] [address] [place] [address]
[2024-07-03 14:28] LABS: Basophils # (auto) 0.01 K/uL (0.00-0.20); Basophils % (auto) 0.2 %; Eosinophils # (auto) 0.02 K/uL (0.00-0.50); Eosinophils % (auto) 0.5 %; Hematocrit (blood only) 28.3 % (37.0-47.0); Hemoglobin 8.8 g/dl (12.0-16.0); Immature Granulocytes # (auto) 0.01 K/uL (0.01-0.20); Immature Granulocytes % (auto) 0.2 %; Lymphocytes # (auto) 0.65 K/uL (1.20-3.40); Lymphocytes % (auto) 14.8 %; Mean Corpuscular Hemoglobin 30.4 pg (25.0-34.0); Mean Corpuscular Hgb Conc 31.1 g/dL (32.0-36.0); Mean Corpuscular Volume 97.9 fL (80.0-100.0); Mean Platelet Volume 9.5 fL (9.4-12.4); Monocytes # (auto) 0.46 K/uL (0.11-0.59); Monocytes % (auto) 10.5 %; Neutrophils # (auto) 3.25 K/uL (1.40-6.50); Neutrophils % (auto) 73.8 %; Platelet Count 134 K/uL (130-400); RDW Coefficient of Variation 17.7 % (11.5-14.5); RDW Standard Deviation 63.9 fL (36.4-46.3); Red Blood Count 2.89 M/uL (4.20-5.40)
[2024-07-03 14:41] LABS: Albumin Globulin Ratio 1.5 (0.9-2); Albumin Level 3.6 gm/dl (3.4-5.0); BUN Creatinine Ratio 24.7 (10-20); Bilirubin,Total 0.5 mg/dl (0.2-1.0); Calcium 8.6 mg/dl (8.6-10.3); Creatinine Clr Calc Pharmacy 42.1 ml/min; Globulin 2.4 gm/dl (2.5-4.0); Potassium 3.4 mmol/L (3.5-5.1)
[2024-07-03 16:35] LABS: Partial Thromboplastin Ratio > 4.9
[2024-07-03 16:37] LABS: Prothrombin Time > 90.0 Seconds (9.0-12.0)
[2024-07-03 16:42] LABS: INR > 10.1 (0.9-1.1); Partial Thromboplastin Time > 139 Seconds (21-31)
[2024-07-03] MEDS: PHYTONADIONE 10 MG in DEXTROSE 5% 50 ML IV ONE (17:54)
--- NOTE | 2024-07-03 18:10 | Emergency Department Note ---
Impression & Plan Supratherapeutic INR, GI bleed, Symptomatic anemia, Elevated INR ED Provider Note NAME: MAHAD DUKES AGE: 79 SEX: F : 1945 ARRIVES VIA: Walk-In INFORMANT: Patient, ED PROVIDER(S): Irving Brandon MD CHIEF COMPLAINT: Black stool HPI: This is an 79-year-old female presenting for black stool. Patient states that she was here previously for black stools when she had a significant elevated INR. She notes that she has lightheadedly at that time. She was transition off of warfarin. She does have a pacemaker so she is started on Eliquis 7 days ago. Over the past few days she has noticed black tarry stools. She notes that she woke up with a conjunctival hemorrhage and bruised eye on the right side. She does not remember at this happened. She has no current headache, vision changes or confusion as per her and ROS: See above HPI for pertinent positives & negatives. A total of 10 systems reviewed and were otherwise negative. PAST MEDICAL HISTORY: See Below PAST SURGICAL HISTORY: See Below FAMILY HISTORY: See Below SOCIAL HISTORY: See Below HOME MEDICATIONS: See Below ALLERGIES: See Below VITALS: See Below PHYSICAL EXAMINATION: General: resting comfortably in no acute distress Head: Normocephalic and atraumatic Eyes: Normal inspection, extraocular muscles intact, right individual hemorrhage with ecchymosis Ear, nose, throat: Normal external exam Neck: Normal range of motion Respiratory: lungs clear to auscultation bilaterally Cardiovascular: Regular rate/rhythm, no murmur GI: soft, nontender, no guarding or rebound Extremities: nontender, moves all extremities Neuro: The patient awake and alert, appropriately conversive, no focal deficits, symmetric faces Skin: Warm, dry, and intact MEDICAL DECISION MAKING: This an 79-year-old female presents with black stool. Patient still is in need black, Hemoccult positive. She is having GI bleed. Patient is now on Eliquis, likely source of her conjunctival hemorrhage and GI bleed. -Blood work shows stable hemoglobin 8.8. Electrolytes otherwise generally within normal limits -Rectal exam performed with nursing wind project manager, Padmini. -Patient will require admission at this time, care discussed with Dr. Craig, for admission -I did receive a critical lab value, INR over 10.1. Concern that patient may have had mixup in her medication is still may be taking her warfarin. -Discussed with Dr. Lang, who recommends vschh-ko-soyy INR to confirm whether this is a true pause results versus false positive from a heparin infused line. -Wdkpv-vy-[id number] INR is having significant error, likely related to this elevated INR. -Will do new lab value INR to help elucidate further -In meantime, due to suspected high INR, will give vitamin K IV Differential diagnosis: GI bleed, elevated INR, hematochezia, melena, hemorrhoids ER treatment provided: See below Independent History obtained from: Diagnostics interpreted by me: ECG: ECG independently interpreted by me with atrially sensed, ventricularly paced rhythm at a rate of 77, CO 144, QRS [address], [address] segment elevations consistent with STEMI criteria Cardiac Monitoring: An order was placed for continuous cardiac monitoring. The monitor shows a rate of 77 with paced rhythm. Laboratory studies: As stated above and show below. Imaging studies: See below. Critical Care Note: I have personally spent 45 minutes of critical care time in the direct management of this patient. This includes bedside care, interpretation of diagnostic studies, and testing, discussion with consultants, patient, and family members, and other required patient management activities. This 45 minutes is in excess of all separately billable procedures. Past Med/Surg History Problem List (Updated 07/03/24 @ 19:54 by Irving Brandon MD) Spontaneous intracranial hemorrhage Cardiac defibrillator in place HTN (hypertension) Paroxysmal atrial fibrillation Bruising (Acute) Elevated INR (Acute) Symptomatic anemia (Acute) Supratherapeutic INR (Acute) GI bleed (Acute) Implantable cardioverter-defibrillator generator end of life Chronic systolic heart failure GERD (gastroesophageal reflux disease) Hypothyroidism AMEZCUA (dyspnea on exertion) (Acute) Chest pain (Acute) Atrial fibrillation with rapid ventricular response (Acute) Medical History Pacemaker Breast cancer Restless leg syndrome Left bundle branch block Nonischemic cardiomyopathy Distal radius fracture, right Nausea and vomiting after administration of anesthetic agent Osteoarthritis Cancer of right breast 2007--sx, chemo/radiation Atrial fibrillation ICD (implantable cardioverter-defibrillator) in place 08/2017 @ [facility] Surgical History History of bilateral tubal ligation History of colonoscopy History of esophagogastroduodenoscopy (EGD) History of total mastectomy of right breast History of right breast biopsy malignant History of tooth extraction History of cardiac cath x3, no stents--last 2015? @ [facility] with Dr. Gonsalez Family History Other No family history of adverse response to anesthesia Social History Smoking Status: Never smoker Second Hand Exposure: Yes ( smoked); Do You Dip or Chew Tobacco: No; Hx Alcohol Use: No Hx Substance Use: No Preferred Language: Tajik Communication Ability: Effective Terminal Block Assembler Required: No Beliefs That Will Affect Care: None Current Living Situation: Spouse Feels Safe at Home: Yes Safety Concerns: Feels Safe At This Time Assistive Devices: Cane, Glasses and Walker Allergies Allergies Allergy/AdvReac Type Severity Reaction Status Date / Time adhesive Allergy Unknown WELTS AND Verified 05/20/24 15:03 PULLS SKIN bee venom protein (honey bee) Allergy Unknown SWELLING Verified 05/20/24 15:03 Iodinated Contrast Media Allergy Unknown HIVES Verified 05/20/24 15:03 perflutren AdvReac Severe Back pain Verified 01/31/23 17:42 propylene glycol AdvReac Severe Back pain Verified 01/31/23 17:42 Home Meds Home Medications Medication Instructions Recorded Confirmed calcium carbonate (Calcium 500) 1,250 mg PO QAM 11/18/18 07/03/24 cholecalciferol (vitamin D3) 50 1,000 unit PO QAM 11/18/18 07/03/24 mcg (2,000 unit) tablet (Vitamin D3) furosemide 20 mg tablet 20 mg PO 5XWK 11/18/18 07/03/24 levothyroxine 25 mcg tablet 25 mcg PO QAM 11/18/18 07/03/24 pantoprazole 40 mg tablet,delayed 40 mg PO BID 11/18/18 07/03/24 release pyridoxine (vitamin B6) 100 mg 100 mg PO QAM 11/18/18 07/03/24 tablet (Vitamin B-6) sacubitril 24 mg-valsartan 26 mg 1 tab PO BID 11/18/18 07/03/24 tablet (Entresto) rosuvastatin 10 mg tablet 10 mg PO DAILY 12/21/23 07/03/24 amiodarone 200 mg tablet 100 mg PO DAILY 05/20/24 07/03/24 apixaban 5 mg tablet (Eliquis) 5 mg PO BID 07/03/24 07/03/24 Previous Rx's Medication Instructions Recorded metoprolol succinate 25 mg 25 mg PO QAM #30 tabs 12/25/23 tablet,extended release 24 hr Results & Data (ED) Vital Signs Vital Signs - 24 hr 07/03/24 13:21 07/03/24 13:48 07/03/24 14:17 Temperature 36.7 C Temperature Source Temporal Artery Scan Pulse Rate 76 Pulse Rate [Apical] 72 Pulse Strength [Apical] Normal Respiratory Rate 18 18 Respiratory Effort / Characteristics Non-Labored Spontaneous Respiratory Depth Normal Respiratory Pattern Regular Blood Pressure 134/70 Blood Pressure [Left Arm] 144/79 H Blood Pressure Mean 91 Blood Pressure Mean [Left Arm] 100 Pulse Oximetry 98 96 96 Oxygen Delivery Method Room Air Room Air Room Air Sepsis Recent Fever Within 48 Hours No Sepsis New/Unexplained Change in Mental Status No Sepsis Action Taken by Nursing No Action Required 07/03/24 14:23 Temperature Temperature Source Pulse Rate 73 Pulse Rate [Apical] Pulse Strength [Apical] Respiratory Rate Respiratory Effort / Characteristics Respiratory Depth Respiratory Pattern Blood Pressure Blood Pressure [Left Arm] Blood Pressure Mean Blood Pressure Mean [Left Arm] Pulse Oximetry Oxygen Delivery Method Sepsis Recent Fever Within 48 Hours Sepsis New/Unexplained Change in Mental Status Sepsis Action Taken by Nursing Laboratory Data 07/03/24 18:35 07/03/24 14:05 Lab Results 07/03/24 07/03/24 07/03/24 Range/Units 14:03 14:05 15:26 WBC 4.40 L (4.8-10.8) K/ul RBC 2.89 L (4.20-5.40) M/uL Hgb 8.8 L (12.0-16.0) g/dl Hct 28.3 L (37.0-47.0) % MCV 97.9 (80.0-100.0) fL MCH 30.4 (25.0-34.0) pg MCHC 31.1 L (32.0-36.0) g/dL RDW Std Deviation 63.9 H (36.4-46.3) fL RDW Coeff of Ivanna 17.7 H (11.5-14.5) % Plt Count 134 (130-400) K/uL MPV 9.5 (9.4-12.4) fL Immature Gran % (Auto) 0.2 % Neut % (Auto) 73.8 % Lymph % (Auto) 14.8 % Cherry % (Auto) 10.5 % Eos % (Auto) 0.5 % Baso % (Auto) 0.2 % Neut # (Auto) 3.25 (1.40-6.50) K/uL Lymph # (Auto) 0.65 L (1.20-3.40) K/uL Cherry # (Auto) 0.46 (0.11-0.59) K/uL Eos # (Auto) 0.02 (0.00-0.50) K/uL Baso # (Auto) 0.01 (0.00-0.20) K/uL Immature Gran # (Auto) 0.01 (0.01-0.20) K/uL PT Cancelled > 90.0 H INR Cancelled > 10.1 H* APTT Cancelled > 139 H* PTT Ratio Cancelled > 4.9 Sodium 138 (136-145) mmol/L Potassium 3.4 L (3.5-5.1) mmol/L Chloride 102 (98-107) mmol/L Carbon Dioxide 29 (21-32) mmol/L Anion Gap 7 (3-11) BUN 23 (6-23) mg/dl Creatinine 0.93 (0.6-1.2) mg/dl Est Cr Clr Drug Dosing 42.1 ml/min eGFR 62.13 BUN/Creatinine Ratio 24.7 H (10-20) Glucose 104 H (70-99(Fasting)) mg/dl Calcium 8.6 (8.6-10.3) mg/dl Total Bilirubin 0.5 (0.2-1.0) mg/dl AST 31 (13-39) U/L ALT 17 (7-52) U/L Alkaline Phosphatase 35 (34-104) U/L Total Protein 6.0 (6.0-8.3) gm/dl Albumin 3.6 (3.4-5.0) gm/dl Globulin 2.4 L (2.5-4.0) gm/dl Albumin/Globulin Ratio 1.5 (0.9-2) Blood Type O Positive Antibody Screen NEGATIVE Administered Medications Pantoprazole Sodium 40 mg/ (Dextrose) 100 mls @ 20 mls/hr IV Q5H ERIKA Stop: 08/02/24 18:42 Last Admin: 07/03/24 19:44 Dose: 8 mg/hr, 20 mls/hr Documented By: RADHA Discontinued Medications Phytonadione 10 mg/ Dextrose 51 mls @ 102 mls/hr IV ONE ONE Stop: 07/03/24 17:39 Last Infusion: 07/03/24 18:33 Dose: Infused Documented By: Admin: 07/03/24 17:54 Dose: 102 mls/hr Documented By: CHUCK Pantoprazole Sodium 80 mg/ (Dextrose) 120 mls @ 480 mls/hr IV NOW STA Stop: 07/03/24 18:46 Last Infusion: 07/03/24 19:47 Dose: Infused Documented By: KDGee Admin: 07/03/24 19:26 Dose: 480 mls/hr Documented By: RADHA Discharge Plan Visit Data Chief Complaint: Rectal Bleed Stated Complaint: BLACK STOOL ED Provider: Irving Brandon Discharge Problem: Supratherapeutic INR, GI bleed, Symptomatic anemia, Elevated INR Patient Disposition: Admitted As Inpatient Discharge Instructions Interventions: ED Discharge Assessment Last Done: 07/03/24 17:59
[2024-07-03] MEDS ORDERED: ONDANSETRON INJ 2 MG/ML 2 ML VIAL IV PRN (18:20)
[2024-07-03] MEDS ORDERED: ACETAMINOPHEN 325 MG TAB PO PRN (18:20)
[2024-07-03] MEDS ORDERED: PANTOPRAZOLE BOLUS/DRIP IV STA (18:20)
[2024-07-03 18:21] LABS: Prothrombin Time > 90.0 Seconds (9.0-12.0)
[2024-07-03 18:25] LABS: INR > 10.1 (0.9-1.1)
[2024-07-03] MEDS ORDERED: FUROSEMIDE 20 MG TAB PO PRN (18:45)
--- NOTE | 2024-07-03 18:47 | History & Physical Report ---
Date of Service July 03, 2024 Assessment & Plan (1) GI bleed: Plan: Start IV pantoprazole after IV bolus Consult EGD Stop apixaban Patient given vitamin K in the ED. Follow-up PT INR and PTT Follow every 6 hour H&H Transfuse for hemoglobin less than 7 but consider sooner with active GI bleed (2) Elevated INR: Plan: Patient given vitamin K. Patient is certain she is not taking warfarin by mistake Questionable lab error but it was repeated twice (3) Symptomatic anemia: Plan: Transfuse as directed Follow hemoglobin (4) Cardiac defibrillator in place: (5) HTN (hypertension): Plan: Continue metoprolol (6) Paroxysmal atrial fibrillation: Plan: Continue metoprolol and amiodarone Consult cardiology Patient is a poor risk for anticoagulants with recurrent GI bleeding. Will discuss with cardiology options (7) ICD (implantable cardioverter-defibrillator) in place: Plan VTE prophylaxis: SCDs Patient is a full code Total time of 85 minutes spent in review of data, examination, care of the patient and care coordination. Admission and Anticipated Discharge Date Admission Date: July 03, 2024 History of Present Illness Chief Complaint: Melena Primary Care Provider: Ruth Brandon MD Eduarda Bond is an 79-year-old female with a previous medical history significant for nonischemic cardiomyopathy, chronic systolic CHF, HTN, mitral valve disorder, PM w/ defibrillator, atrial thrombus, CAD, AF, Yi's esophagus, GERD, vitamin D deficiency, breast cancer s/p right mastectomy presenting to the ED with melanotic stools. Patient was admitted last month for a GI bleed and supratherapeutic INR. At that time she was on warfarin. Subsequently the patient has been started on apixaban. Over the past few days she has noticed black tarry stools. She notes that she woke up with a conjunctival hemorrhage and bruised eye on the right side today. She is also had some epistaxis. In the ED she has a markedly elevated INR and PTT. She is certain she is not taking warfarin by mistake. Patient was given vitamin K. Her EKG shows an atrial sensed rhythm. An EGD done her last admission showed t wo small angioectasias with no bleeding were found in the gastric body. Coagulation for bleeding prevention using argon plasma was successful. Allergies Allergy/AdvReac Type Severity Reaction Status Date / Time adhesive Allergy Unknown WELTS AND Verified 05/20/24 15:03 PULLS SKIN bee venom protein (honey bee) Allergy Unknown SWELLING Verified 05/20/24 15:03 Iodinated Contrast Media Allergy Unknown HIVES Verified 05/20/24 15:03 perflutren AdvReac Severe Back pain Verified 01/31/23 17:42 propylene glycol AdvReac Severe Back pain Verified 01/31/23 17:42 Home Medications Medication Instructions Recorded Confirmed Type calcium carbonate (Calcium 500) 1,250 mg PO QAM 11/18/18 07/03/24 History cholecalciferol (vitamin D3) 50 1,000 unit PO QAM 11/18/18 07/03/24 History mcg (2,000 unit) tablet (Vitamin D3) furosemide 20 mg tablet 20 mg PO 5XWK 11/18/18 07/03/24 History levothyroxine 25 mcg tablet 25 mcg PO QAM 11/18/18 07/03/24 History pantoprazole 40 mg tablet,delayed 40 mg PO BID 11/18/18 07/03/24 History release pyridoxine (vitamin B6) 100 mg 100 mg PO QAM 11/18/18 07/03/24 History tablet (Vitamin B-6) sacubitril 24 mg-valsartan 26 mg 1 tab PO BID 11/18/18 07/03/24 History tablet (Entresto) rosuvastatin 10 mg tablet 10 mg PO DAILY 12/21/23 07/03/24 History metoprolol succinate 25 mg 25 mg PO QAM #30 tabs 12/25/23 07/03/24 Rx tablet,extended release 24 hr amiodarone 200 mg tablet 100 mg PO DAILY 05/20/24 07/03/24 History apixaban 5 mg tablet (Eliquis) 5 mg PO BID 07/03/24 07/03/24 History Past Med/Surg History Problem List (Updated 06/23/24 @ 00:08 by Background Zeb) Spontaneous intracranial hemorrhage Cardiac defibrillator in place HTN (hypertension) Paroxysmal atrial fibrillation Bruising (Acute) Elevated INR (Acute) Symptomatic anemia (Acute) Supratherapeutic INR GI bleed Implantable cardioverter-defibrillator generator end of life Chronic systolic heart failure GERD (gastroesophageal reflux disease) Hypothyroidism AMEZCUA (dyspnea on exertion) (Acute) Chest pain (Acute) Atrial fibrillation with rapid ventricular response (Acute) Medical History Pacemaker Breast cancer Restless leg syndrome Left bundle branch block Nonischemic cardiomyopathy Distal radius fracture, right Nausea and vomiting after administration of anesthetic agent Osteoarthritis Cancer of right breast 2007--sx, chemo/radiation Atrial fibrillation ICD (implantable cardioverter-defibrillator) [place] place [place] [facility] [place] History History of bilateral tubal ligation History of colonoscopy History of esophagogastroduodenoscopy (EGD) History of total mastectomy of right breast History of right breast biopsy malignant History of tooth extraction History of cardiac cath x3, no stents--last 2015? @ [facility] with Dr. Gonsalez Family History Other No family history of adverse response to anesthesia Social History Smoking Status: Never smoker Second Hand Exposure: Yes ( smoked); Do You Dip or Chew Tobacco: No; Hx Alcohol Use: No Hx Substance Use: No Preferred Language: Chinese Communication Ability: Effective Map Compiler Required: No Beliefs That Will Affect Care: None Current Living Situation: Spouse Feels Safe at Home: Yes Safety Concerns: Feels Safe At This Time Assistive Devices: Cane, Glasses and Walker Review of Systems Review of Systems: As per HPI. All other review of systems were reviewed and are negative or noncontributory. Physical Exam Physical Exam: General- adult elderly female seen at bedside in the ED. Her spouse is present, she appears ill Head- atraumatic Eyes- PERRL, EOMI, she has a fairly impressive conjunctival hemorrhage on the right. Negative hyphema ENT- oropharynx clear Neck- supple, no JVD, no adenopathy, no thyromegaly; carotids +2/2, no bruits appreciated Lungs- clear to auscultation and percussion Heart- regular rhythm; no murmur, no gallop, no rub appreciated Abdomen- normal bowel sounds, soft, nontender, no masses or hepatosplenomegaly Extremities- no pretibial edema, no calf tenderness; peripheral pulses intact Neuro- alert, oriented x 3; PERRL, EOMI; no focal deficit Skin- warm & dry Results & Data Results & Data Vital Signs (Past 12 Hours) Vital Signs Temp Pulse Pulse Resp BP BP Pulse Ox 07/03/24 18:20 37.0 C 86 20 117/79 94 07/03/24 17:58 78 18 126/63 96 07/03/24 14:23 73 07/03/24 14:17 72 18 144/79 H 96 07/03/24 13:48 96 07/03/24 13:21 36.7 C 76 18 134/70 98 O2 Del Method 07/03/24 18:20 Room Air 07/03/24 17:58 Room Air 07/03/24 14:23 07/03/24 14:17 Room Air 07/03/24 13:48 Room Air 07/03/24 13:21 Room Air Diagnostic Findings Laboratory Results WBC 4.40 K/ul (4.8-10.8) L 07/03/24 14:05 RBC 2.89 M/uL (4.20-5.40) L 07/03/24 14:05 Hgb 8.8 g/dl (12.0-16.0) L 07/03/24 14:05 Hct 28.3 % (37.0-47.0) L 07/03/24 14:05 MCV 97.9 fL (80.0-100.0) 07/03/24 14:05 MCH 30.4 pg (25.0-34.0) 07/03/24 14:05 MCHC 31.1 g/dL (32.0-36.0) L 07/03/24 14:05 RDW Std Deviation 63.9 fL (36.4-46.3) H 07/03/24 14:05 RDW Coeff of Ivanna 17.7 % (11.5-14.5) H 07/03/24 14:05 Plt Count 134 K/uL (130-400) 07/03/24 14:05 MPV 9.5 fL (9.4-12.4) 07/03/24 14:05 Immature Gran % (Auto) 0.2 % 07/03/24 14:05 Neut % (Auto) 73.8 % 07/03/24 14:05 Lymph % (Auto) 14.8 % 07/03/24 14:05 [place] % (Auto) 10.5 % 07/03/24 14:05 Eos % (Auto) 0.5 % 07/03/24 14:05 Baso % (Auto) 0.2 % 07/03/24 14:05 Neut # (Auto) 3.25 K/uL (1.40-6.50) 07/03/24 14:05 Lymph # (Auto) 0.65 K/uL (1.20-3.40) L 07/03/24 14:05 [place] # (Auto) 0.46 K/uL (0.11-0.59) 07/03/24 14:05 Eos # (Auto) 0.02 K/uL (0.00-0.50) 07/03/24 14:05 Baso # (Auto) 0.01 K/uL (0.00-0.20) 07/03/24 14:05 Immature Gran # (Auto) 0.01 K/uL (0.01-0.20) 07/03/24 14:05 PT > 90.0 Seconds (9.0-12.0) H 07/03/24 17: INR > 10.1 (0.9-1.1) H* 07/03/24 17: APTT > 139 Seconds (21-31) H* 07/03/24 15:26 PTT Ratio > 4.9 07/03/24 15:26 Sodium 138 mmol/L (136-145) 07/03/24 14:05 Potassium 3.4 mmol/L (3.5-5.1) L 07/03/24 14:05 Chloride 102 mmol/L (98-107) 07/03/24 14:05 Carbon Dioxide 29 mmol/L (21-32) 07/03/24 14:05 Anion Gap 7 (3-11) 07/03/24 14:05 BUN 23 mg/dl (6-23) 07/03/24 14:05 Creatinine 0.93 mg/dl (0.6-1.2) 07/03/24 14:05 Est Cr Clr Drug Dosing 42.1 ml/min 07/03/24 14:05 eGFR 62.13 07/03/24 14:05 BUN/Creatinine Ratio 24.7 (10-20) H 07/03/24 14:05 Glucose 104 mg/dl (70-99(Fasting)) H 07/03/24 14:05 Calcium 8.6 mg/dl (8.6-10.3) 07/03/24 14:05 Total Bilirubin 0.5 mg/dl (0.2-1.0) 07/03/24 14:05 AST 31 U/L (13-39) 07/03/24 14:05 ALT 17 U/L (7-52) 07/03/24 14:05 Alkaline Phosphatase 35 U/L (34-104) 07/03/24 14:05 Total Protein 6.0 gm/dl (6.0-8.3) 07/03/24 14:05 Albumin 3.6 gm/dl (3.4-5.0) 07/03/24 14:05 Globulin 2.4 gm/dl (2.5-4.0) L 07/03/24 14:05 Albumin/Globulin Ratio 1.5 (0.9-2) 07/03/24 14:05 POC Stool Occult Blood Positive (Negative) A 07/03/24 18:03 Blood Type O Positive 07/03/24 14:03 Antibody Screen NEGATIVE 07/03/24 14:03 Medications Administered Current Inpatient Medications Acetaminophen (Acetaminophen 325 Mg Tab) 650 mg PO Q4H PRN PRN Reason: Pain or Fever Stop: 08/02/24 18:19 Amiodarone HCl (Amiodarone 200 Mg Tab) 100 mg PO DAILY [facility] Stop: 08/03/24 08:59 Calcium Carbonate (Calcium Carbonate 1250mg Tab) 1 tab PO QAM [facility] Stop: 08/03/24 08:59 Furosemide (Furosemide 20 Mg Tab) 20 mg PO MoTuWeThFr@0900 ERIKA Stop: 08/03/24 08:59 Furosemide (Furosemide 20 Mg Tab) 20 mg PO SuSa@0900 PRN PRN Reason: swelling Stop: 08/02/24 18:44 Pantoprazole Sodium 40 mg/ (Dextrose) 100 mls @ 20 mls/hr IV Q5H [facility] Stop: 08/02/24 18:42 Levothyroxine Sodium (Levothyroxine Sodium 25 Mcg Tablet) 25 mcg PO DAILYBB [facility] Stop: 08/03/24 06:29 Metoprolol Succinate (Metoprolol Succ 25mg Ext Rel Tab) 25 mg PO QAM [facility] Stop: 08/03/24 08:59 Ondansetron HCl (Ondansetron Inj 2 Mg/Ml 2 Ml Vial) 4 mg IV Q6H PRN PRN Reason: Nausea Stop: 08/02/24 18:19 Pyridoxine HCl (Pyridoxine Hcl 50 Mg Tab) 100 mg PO QAM [facility] Stop: 08/03/24 08:59 Rosuvastatin Calcium (Rosuvastatin Calcium 10 Mg Tab) 10 mg PO DAILY [facility] Stop: 08/03/24 08:59 Sacubitril/Valsartan (Valsartan/Sacubitril 26/24mg Tab) 1 tab PO BID [facility] Stop: 08/02/24 20:59 Vitamin D (Cholecalciferol 25 Mcg (1000 Units) Tab) 25 mcg PO QAM [facility] Stop: 08/03/24 08:59 Code Status & VTE Plan VTE Prophylaxis Plan VTE Prophylaxis will be ordered: Yes Reason for no VTE drug order: Contraindicated (1) GI bleed GI bleed type/associated pathology: melena Qualified Code(s): K92.1 - Melena
[2024-07-03] MEDS: PANTOprazole 80 MG in DEXTROSE 5% 100 ML IV STA (19:26)
[2024-07-03] MEDS: PANTOprazole 40 MG in DEXTROSE 5% MINI-B 100 ML IV SCH (19:44)
[2024-07-03] MEDS: VALSARTAN/SACUBITRIL 26/24MG TAB PO SCH (20:06)
[2024-07-03 20:15] LABS: Partial Thromboplastin Ratio 4.1; Prothrombin Time > 90.0 Seconds (9.0-12.0)
[2024-07-03 20:23] LABS: INR > 9.5 (0.9-1.1); Partial Thromboplastin Time 110 Seconds (21-31)
[2024-07-03 22:49] LABS: Hematocrit (blood only) 24.6 % (37.0-47.0); Hemoglobin 7.8 g/dl (12.0-16.0); Mean Corpuscular Hgb Conc 31.7 g/dL (32.0-36.0); Mean Corpuscular Volume 97.6 fL (80.0-100.0); Mean Platelet Volume 9.3 fL (9.4-12.4); Platelet Count 122 K/uL (130-400); RDW Coefficient of Variation 17.5 % (11.5-14.5); RDW Standard Deviation 62.6 fL (36.4-46.3); Red Blood Count 2.52 M/uL (4.20-5.40); White Blood Count 4.44 K/ul (4.8-10.8)
[2024-07-03] MEDS: NSS + 20MEQ KCL 20 MEQ/1,000 ML BAG IV ONE (23:33)
[2024-07-03 23:34] LABS: Magnesium 1.6 mg/dl (1.7-2.4)
[2024-07-04] MEDS: LEVOTHYROXINE SODIUM 25 MCG TABLET PO SCH (05:50)
[2024-07-04 06:17] LABS: Basophils # (auto) 0.01 K/uL (0.00-0.20); Basophils % (auto) 0.3 %; Eosinophils # (auto) 0.03 K/uL (0.00-0.50); Eosinophils % (auto) 0.8 %; Hematocrit (blood only) 23.1 % (37.0-47.0); Hemoglobin 7.4 g/dl (12.0-16.0); Immature Granulocytes # (auto) 0.01 K/uL (0.01-0.20); Immature Granulocytes % (auto) 0.3 %; Lymphocytes # (auto) 0.88 K/uL (1.20-3.40); Lymphocytes % (auto) 24.2 %; Mean Corpuscular Hemoglobin 31.2 pg (25.0-34.0); Mean Corpuscular Volume 97.5 fL (80.0-100.0); Mean Platelet Volume 9.2 fL (9.4-12.4); Monocytes # (auto) 0.38 K/uL (0.11-0.59); Monocytes % (auto) 10.4 %; Neutrophils # (auto) 2.33 K/uL (1.40-6.50); Platelet Count 120 K/uL (130-400); RDW Coefficient of Variation 17.4 % (11.5-14.5); RDW Standard Deviation 62.5 fL (36.4-46.3); Red Blood Count 2.37 M/uL (4.20-5.40); White Blood Count 3.64 K/ul (4.8-10.8)
[2024-07-04 06:37] LABS: RBC Morphology Unremarkable
[2024-07-04 06:43] LABS: BUN Creatinine Ratio 26.2 (10-20); Calcium 8.1 mg/dl (8.6-10.3); Creatinine Clr Calc Pharmacy 47.4 ml/min; Potassium 3.6 mmol/L (3.5-5.1)
[2024-07-04 07:00] LABS: INR 1.5 (0.9-1.1); Prothrombin Time 16.1 Seconds (9.0-12.0)
[2024-07-04] MEDS ORDERED: SODIUM CHLORIDE 0.9% 100 ML IV PRN (07:39)
[2024-07-04] MEDS ORDERED: SODIUM CHLORIDE 0.9% 50 ML IV PRN (07:39)
[2024-07-04] MEDS: ROSUVASTATIN CALCIUM 10 MG TAB PO SCH (09:00)
[2024-07-04] MEDS: METOPROLOL SUCC 25MG EXT REL TAB PO SCH (09:00)
[2024-07-04] MEDS: CHOLECALCIFEROL 25 MCG (1000 UNITS) TAB PO SCH (09:00)
[2024-07-04] MEDS: CALCIUM CARBONATE 1250MG TAB PO SCH (09:00)
[2024-07-04] MEDS: FUROSEMIDE 20 MG TAB PO SCH (09:00)
[2024-07-04] MEDS: PYRIDOXINE HCL 50 MG TAB PO SCH (09:01)
[2024-07-04] MEDS: AMIODARONE 200 MG TAB PO SCH (09:01)
--- NOTE | 2024-07-04 09:40 | Gastrointestinal Consultation ---
Date of Consultation July 04, 2024 Assessment & Plan (1) Melena: Continue to monitor for overt GI bleeding and monitor H/H. Patient likely bleeding due to supratherapeutic INR which has since been corrected. Continue IV PPI; of note, she was discharged home with Protonix 40 mg BID. Would hold off on repeat endoscopy at present given she recently underwent an EGD for the same issue. If she demonstrates further overt GI bleeding with a normal INR, would consider CTA vs NM bleeding scan vs repeat endoscopic evaluation. Supervising Physician Co-Signing Physician Notes I examined the patient and reviewed patient's chart , laboratory data and imaging studies. I agree with with assessment and plan of care as suggested by advanced practice provider. If remains stable would advance diet tomorrow. Hold off on upper endoscopy. History of Present Illness Reason for Consultation: "GI bleed" Attending Physician: Damir Stearns MD History of Present Illness Patient is an 79 yo female with PMH of cardiomyopathy, chronic systolic CHF, HTN, mitral valve abnormalities, atrial thrombus, CAD, atrial fibrillation, Yi's Esophagus, GERD, vitamin D deficiency, and breast cancer who presented to the ED with dark stools. She was admitted very recently for the same issue. She is on Eliquis for her A fib. She has been having epistaxis as well. INR was >10.1 on admission. Of note, she was previously on Coumadin before being switched to Eliquis. She was given Vitamin K. She was here for similar issues last admission where she also came in with GI bleeding with a supratherapeutic INR and had an EGD on 05/22/24 with 2 small angioectasias without bleeding in the gastric body. These were treated with APC. At the time of her last admission/EGD, GI recommendations were made for an outpatient VCE and if the patient were to rebleed, a CTA vs NM GI bleed scan was advised. Allergies Allergy/AdvReac Type Severity Reaction Status Date / Time adhesive Allergy Unknown WELTS AND Verified 05/20/24 15:03 PULLS SKIN bee venom protein (honey bee) Allergy Unknown SWELLING Verified 05/20/24 15:03 Iodinated Contrast Media Allergy Unknown HIVES Verified 05/20/24 15:03 perflutren AdvReac Severe Back pain Verified 01/31/23 17:42 propylene glycol AdvReac Severe Back pain Verified 01/31/23 17:42 Home Medications Medication Instructions Recorded Confirmed Type calcium carbonate (Calcium 500) 1,250 mg PO QAM 11/18/18 07/03/24 History cholecalciferol (vitamin D3) 50 1,000 unit PO QAM 11/18/18 07/03/24 History mcg (2,000 unit) tablet (Vitamin D3) furosemide 20 mg tablet 20 mg PO [id number] 11/18/18 07/03/24 History levothyroxine 25 mcg tablet 25 mcg PO QAM 11/18/18 07/03/24 History pantoprazole 40 mg tablet,delayed 40 mg PO BID 11/18/18 07/03/24 History release pyridoxine (vitamin B6) 100 mg 100 mg PO QAM 11/18/18 07/03/24 History tablet (Vitamin B-6) sacubitril 24 mg-valsartan 26 mg 1 tab PO BID 11/18/18 07/03/24 History tablet (Entresto) rosuvastatin 10 mg tablet 10 mg PO DAILY 12/21/23 07/03/24 History metoprolol succinate 25 mg 25 mg PO QAM #30 tabs 12/25/23 07/03/24 Rx tablet,extended release 24 hr amiodarone 200 mg tablet 100 mg PO DAILY 05/20/24 07/03/24 History apixaban 5 mg tablet (Eliquis) 5 mg PO BID 07/03/24 07/03/24 History Patient History Medical History Pacemaker Breast cancer Restless leg syndrome Left bundle branch block Distal radius fracture, right Nausea and vomiting after administration of anesthetic agent Osteoarthritis Cancer of right breast 2007--sx, chemo/radiation Atrial fibrillation ICD (implantable cardioverter-defibrillator) in place 08/[address] [facility] [place] History History of bilateral tubal ligation History of colonoscopy History of esophagogastroduodenoscopy (EGD) History of total mastectomy of right breast History of right breast biopsy malignant History of tooth extraction History of cardiac cath x3, no stents--last 2015? @ [facility] with Dr. Gonsalez Family History Other No family history of adverse response to anesthesia Social History Smoking Status: Never smoker Second Hand Exposure: Yes ( smoked); Do You Dip or Chew Tobacco: No; Hx Alcohol Use: No Hx Substance Use: No Preferred Language: Citizen Of [place] Communication Ability: Effective Machine Whitener Required: No Beliefs That Will Affect Care: None Current Living Situation: Spouse Feels Safe at Home: Yes Safety Concerns: Feels Safe At This Time Assistive Devices: Cane Review of Systems Constitutional: no fever and no chills Respiratory: no cough and no dyspnea Gastrointestinal: + melena Physical Exam Constitutional: well developed ENMT: subconjunctival hemorrhage Respiratory: normal respiratory effort Gastrointestinal (Abdomen): normal bowel sounds, soft, nontender, no hepatosplenomegaly Psychiatric: Orientation: alert Results & Data Vital Signs (Past 12 Hours) Vital Signs Temp Pulse Resp BP Pulse Ox O2 Del Method 07/04/24 07:45 36.9 C 80 17 106/56 L 94 Room Air 07/04/24 02:01 36.8 C 77 16 119/72 91 Room Air 07/03/24 22:13 37.2 C 81 16 107/52 L 96 Room Air PG Care Time/CCT Total # of Minutes Spent Total Time Spent with Patient: Total time spent is greater than 50% in coordination of care (as documented) at patient's floor/unit and/or counseling patient: Coding Level of Care Code 14817 INT INP/OBS CARE 3/75MIN Diagnoses Melena K92.1
--- NOTE | 2024-07-04 11:21 | Cardiology Consultation ---
Date of Consultation July 04, 2024 Assessment & Plan (1) Melena: (2) GI bleed: (3) Paroxysmal atrial fibrillation: (4) Nonischemic cardiomyopathy: (5) Biventricular cardiac pacemaker in situ: (6) Subdural hematoma: Plan Presentation with recurrent GI bleeding along with right-sided subconjunctival hemorrhage, periorbital ecchymosis, intermittent epistaxis. INR significantly elevated despite prior discontinuation of Coumadin anticoagulation Nonischemic cardiomyopathy. Compensated systolic and diastolic heart failure. Status post biventricular pacer defibrillator implantation. History of September 2022 right atrial thrombus connected to the pacer lead, resolving on warfarin Paroxysmal atrial fibrillation Recent subdural hematoma Recommendations: Hold anticoagulation for now. ? Hematology consultation. Continue metoprolol, Entresto, furosemide, amiodarone, and low dose rosuvastatin. Supervising Physician Co-Signing Physician Notes Attending attestation: Case reviewed with the advanced practitioner. I have personally performed a history and physical examination on the patient. I have reviewed the advanced practitioner's documentation on the date of service referenced in note, and I agree with, and take responsibility for the plan of care. Question if patient was taking Coumadin by accident versus other cause of her having supratherapeutic INR in the setting of Eliquis treatment. For now, hold all anticoagulants. Although consideration of a percutaneous left atrial appendage occlusion device would be a reasonable option with regards to stroke risk and atrial fibrillat ion, this would require 6 months of dual antiplatelet therapy post procedure and at present I am not certain if she would tolerate aspirin and clopidogrel. Possibility of percutaneous left atrial appendage device would not prevent recurrence of the right atrial thrombus that had been observed previously. Will need to ensure that all warfarin has been removed from her pillbox and that she does not have any residual pills around the could be confusing her. I spent a total of 20 minutes coordinating, documenting, and providing care for this patient excluding time spent in the performance of separately billed services or time spent by another provider. Darian Neri DO History of Present Illness Reason for Consultation: Atrial fibrillation, GI bleeding Requesting Physician: Dr. Craig Attending Physician: Dr. Damir Stearns MD History of Present Illness Eduarda Bond is an 79-year-old female who is being seen today at the request of Dr. Craig. Reasons for consultation include atrial fibrillation, GI bleeding. Patient hospitalized in May 2024 with symptomatic anemia, hemoglobin 6.4, receiving 3 units packed red blood cells. INR supratherapeutic on presentation. EGD with 2 vascular ectasias of stomach. Complaints of headache lead to imaging of the head - trace acute subdural hemorrhage along the anterior and posterior aspects of the falx, also possible trace acute subdural hemorrhage overlying the bilateral temporal lobes. Coumadin anticoagulation discontinued. reduced dose Eliquis anticoagulation initiated June 28, 2024. Patient presented to [facility] ER on July 03, 2024 with black tarry stools, waking with a right sided subconjunctival hemorrhage and ecchymosis around the right eye, also with intermittent epistaxis. INR significantly elevated on presentation at greater than 10.1, verified, despite prior discontinuation of Coumadin anticoagulation. Hemoglobin 7.8. Apixaban held. Vitamin K administered along with IV pantoprazole. No chest pain, palpitations, unusual shortness of breath, orthopnea, PND, or peripheral edema. No visual disturbances. No dizziness. No syncope. No fevers or chills. No bowel movement today. No gross hematuria. EKG on presentation revealed a atrial sensed ventricular paced rhythm. Telemetry also revealing a ventricular paced rhythm. Problem List: 1. Nonischemic cardiomyopathy. 2. Chronic left bundle branch block. 3. Normal coronary arteries by cardiac catheterization June 1999 and February 2012. 4. Mild to moderate mitral insufficiency. 5. Class 2-3 congestive heart failure, systolic with improvement post Bi V pacemaker implantation 6. History of breast carcinoma, right, status post mastectomy, chemotherapy and radiation therapy. 7. BIV ICD implantation August 2017 at [facility] [place] with balloon angioplasty of the left subclavian vein with vascular surgery to allow lead placement. Generator exchange December 21, 2023, [employer] Jhaveri MP 8. Repeat 2D echocardiogram since BIV placement, which demonstrated interval improvement in her LV function to 48%. 9. Status post mechanical fall October 17, 2019 with substantial trauma including sternal fracture , lumbar compression fractures and distal right radial and ulnar fracture 10. Echo October 03, 2022 demonstrating thrombus in the right atrium likely connected to the pacer lead with resolve on warfarin 11. Paroxysmal atrial fibrillation in association with pacer defibrillator going ROSA December 21, 2023 12. Subdural hematoma, spontaneous, 05/23/2024 Allergies Allergy/AdvReac Type Severity Reaction Status Date / Time adhesive Allergy Unknown WELTS AND Verified 05/20/24 15:03 PULLS SKIN bee venom protein (honey bee) Allergy Unknown SWELLING Verified 05/20/24 15:03 Iodinated Contrast Media Allergy Unknown HIVES Verified 05/20/24 15:03 perflutren AdvReac Severe Back pain Verified 01/31/23 17:42 propylene glycol AdvReac Severe Back pain Verified 01/31/23 17:42 Home Medications Medication Instructions Recorded Confirmed Type calcium carbonate (Calcium 500) 1,250 mg PO QAM 11/18/18 07/03/24 History cholecalciferol (vitamin D3) 50 1,000 unit PO QAM 11/18/18 07/03/24 History mcg (2,000 unit) tablet (Vitamin D3) furosemide 20 mg tablet 20 mg PO 5XWK 11/18/18 07/03/24 History levothyroxine 25 mcg tablet 25 mcg PO QAM 11/18/18 07/03/24 History pantoprazole 40 mg tablet,delayed 40 mg PO BID 11/18/18 07/03/24 History release pyridoxine (vitamin B6) 100 mg 100 mg PO QAM 11/18/18 07/03/24 History tablet (Vitamin B-6) sacubitril 24 mg-valsartan 26 mg 1 tab PO BID 11/18/18 07/03/24 History tablet (Entresto) rosuvastatin 10 mg tablet 10 mg PO DAILY 12/21/23 07/03/24 History metoprolol succinate 25 mg 25 mg PO QAM #30 tabs 12/25/23 07/03/24 Rx tablet,extended release 24 hr amiodarone 200 mg tablet 100 mg PO DAILY 05/20/24 07/03/24 History apixaban 5 mg tablet (Eliquis) 5 mg PO BID 07/03/24 07/03/24 History Patient History Medical History Pacemaker Breast cancer Restless leg syndrome Left bundle branch block Distal radius fracture, right Nausea and vomiting after administration of anesthetic agent Osteoarthritis Cancer of right breast 2007--sx, chemo/radiation Atrial fibrillation ICD (implantable cardioverter-defibrillator) in place 08/2017 @ [facility] [place] meditronic Surgical History History of bilateral tubal ligation History of colonoscopy History of esophagogastroduodenoscopy (EGD) History of total mastectomy of right breast History of right breast biopsy malignant History of tooth extraction History of cardiac cath x3, no stents--last 2015? @ [facility] with Dr. Gonsalez Family History Other No family history of adverse response to anesthesia Social History Smoking Status: Never smoker Second Hand Exposure: Yes ( smoked); Do You Dip or Chew Tobacco: No; Hx Alcohol Use: No Hx Substance Use: No Preferred Language: Citizen Of [place] Communication Ability: Effective Hospice Volunteer Coordinator Required: No Beliefs That Will Affect Care: None Current Living Situation: Spouse Feels Safe at Home: Yes Safety Concerns: Feels Safe At This Time Assistive Devices: Cane Review of Systems Review of Systems: Complete Review of Systems is as stated above, negative, or noncontributory. Physical Exam Physical Exam: General: A&Ox3. NAD. HENT: Atraumatic. Ecchymosis around right eye. Eyes: Subconjunctival hemorrhage on the right. Clear on the left. PER. Neck: No JVD. Heart: Regular, paced. Systolic murmur. No rub. Lungs: Clear to auscultation. Abdomen: +BS. Soft. Nontender. No masses or organomegaly. Extremities: No clubbing, cyanosis, or edema. Limited neurological examination is without focal deficits. Pulses: Posterior tibial=1/4. Results & Data Vital Signs (Past 12 Hours) Vital Signs Temp Pulse Pulse Resp BP BP Pulse Ox 07/04/24 10:36 36.8 C 75 20 99/65 L 98 07/04/24 08:00 71 07/04/24 08:00 07/04/24 07:45 36.9 C 80 17 106/56 L 94 07/04/24 02:01 36.8 C 77 16 119/72 91 O2 Del Method 07/04/24 10:36 07/04/24 08:00 07/04/24 08:00 Room Air 07/04/24 07:45 Room Air 07/04/24 02:01 Room Air Laboratory Results Cardiac Enzymes 11/17/24 Range/Units 14:05 AST 31 (13-39) U/L Coagulation 07/03/24 07/03/24 07/03/24 Range/Units 14:05 15:26 17:28 PT Cancelled > 90.0 H > 90.0 H APTT Cancelled > 139 H* 07/03/24 07/04/24 Range/Units 19:13 05:54 PT > 90.0 H 16.1 H APTT 110 H* CBC 07/03/24 07/03/24 07/03/24 Range/Units 14:05 18:35 22:33 WBC 4.40 L 4.44 L (4.8-10.8) K/ul RBC 2.89 L 2.52 L (4.20-5.40) M/uL Hgb 8.8 L 8.5 L 7.8 L (12.0-16.0) g/dl Hct 28.3 L 24.6 L (37.0-47.0) % Plt Count 134 122 L (130-400) K/uL Neut # (Auto) 3.25 (1.40-6.50) K/uL Lymph # (Auto) 0.65 L (1.20-3.40) K/uL Marshall # (Auto) 0.46 (0.11-0.59) K/uL Eos # (Auto) 0.02 (0.00-0.50) K/uL Baso # (Auto) 0.01 (0.00-0.20) K/uL 07/04/24 Range/Units 05:54 WBC 3.64 L (4.8-10.8) K/ul RBC 2.37 L (4.20-5.40) M/uL Hgb 7.4 L (12.0-16.0) g/dl Hct 23.1 L (37.0-47.0) % Plt Count 120 L (130-400) K/uL Neut # (Auto) 2.33 (1.40-6.50) K/uL Lymph # (Auto) 0.88 L (1.20-3.40) K/uL Marshall # (Auto) 0.38 (0.11-0.59) K/uL Eos # (Auto) 0.03 (0.00-0.50) K/uL Baso # (Auto) 0.01 (0.00-0.20) K/uL Comprehensive Metabolic Panel 07/03/24 07/04/24 Range/Units 14:05 05:54 Sodium 138 141 (136-145) mmol/L Potassium 3.4 L 3.6 (3.5-5.1) mmol/L Chloride 102 107 (98-107) mmol/L Carbon Dioxide 29 30 (21-32) mmol/L BUN 23 22 (6-23) mg/dl Creatinine 0.93 0.84 (0.6-1.2) mg/dl Glucose 104 H 111 H (70-99(Fasting)) mg/dl Calcium 8.6 8.1 L (8.6-10.3) mg/dl AST 31 (13-39) U/L ALT 17 (7-52) U/L Alkaline Phosphatase 35 (34-104) U/L Total Protein 6.0 (6.0-8.3) gm/dl Albumin 3.6 (3.4-5.0) gm/dl Intake and Output 07/03/24 07/04/24 07/04/24 22:59 06:59 14:59 Intake Total 371 / 653.000 282.000 / 653.000 98.667 / 98.667 Balance 371 / 653.000 282.000 / 653.000 98.667 / 98.667 Intake: IV 171 / 353.000 182.000 / 353.000 98.667 / 98.667 PANTOprazole 40 mg In Dextrose 182.000 / 182.000 98.667 / 98.667 5% Mini-B 100 ml @ 8 MG/HR 20 mls/hr IV Q5H ERIKA Rx#:[id number] PANTOprazole 80 mg In Dextrose 120 / 120 5% 100 ml @ 480 mls/hr IV NOW STA Rx#:[id number] Phytonadione 10 mg In Dextrose 51 / 51 5% 50 ml @ 102 mls/hr IV ONE ONE Rx#:[id number] Oral 200 / 300 100 / 300 Intake (Blood Product) Amt 0 / 0 Packed Cells, Leukoreduced 0 / 0 Unit [id number] Other: # Unmeasured Voids 2 Weight 77 kg 79.1 kg Weight Measurement Method Built in Bedscale Built in [facility] Diagnostic Findings General: A&Ox3. NAD. HENT: Atraumatic. Ecchymosis around right eye. Eyes: Subconjunctival hemorrhage on the right. Clear on the left. PER. Neck: No JVD. Heart: Regular, paced. Systolic murmur. No rub. Lungs: Clear to auscultation. Abdomen: +BS. Soft. Nontender. No masses or organomegaly. Extremities: No clubbing, cyanosis, or edema. Limited neurological examination is without focal deficits. Pulses: Posterior tibial=1/4.
--- NOTE | 2024-07-04 12:05 | Hospitalist Progress Note ---
Date of Service July 04, 2024 Assessment & Plan (1) Spontaneous intracranial hemorrhage: (2) HTN (hypertension): (3) Paroxysmal atrial fibrillation: (4) Supratherapeutic INR: (5) GI bleed: (6) GERD (gastroesophageal reflux disease): (7) Hypothyroidism: (8) Pacemaker: (9) ICD (implantable cardioverter-defibrillator) in place: (10) Atrial fibrillation: Plan Assessment and plan: Hematochezia/R eye ecchymosis: Supratherapeutic INR Acute blood loss anemia Recent hospitalization on 05/20 for GI bleed/supratherapeutic INR S/p EGD on 05/22/2020 42 small angioectasias without bleeding Coumadin was discontinued and the patient was transitioned to Eliquis on 06/28 Patient reports tarry stools x 2 days, hemoglobin 7.4 from 8.1 a month ago Hemodynamically stable, serial H/H, heme stool +, INR on arrival over 9 S/p vitamin K administration in ED, GI/cardiology consulted and following Will transfuse 1 unit PRBC on 07/04, consider CTA versus NM bleeding scan if melena reoccurs Recent ICH: Patient was transferred to [facility] on 05/23/2024 for evaluation by NSG Neuro exam stable, warfarin was temporarily held at that time and Eliquis was started on 06/28 Hx systolic CHF/AF/nonischemic cardiomyopathy/CAD/atrial thrombus: Continue amiodarone, Eliquis discontinued Continue statin/metoprolol/hold Lasix for now Hx GERD: Hold Protonix, continue Protonix drip A total of 60 minutes was spent on chart review/review medical history/discussion with consultants/facilitating plan of care Full code DVT prophylaxis: Eliquison hold-SCDs, avoid AC with anemia Admission and Anticipated Discharge Date Admission Date: July 03, 2024 Supervising Physician Co-Signing Physician Notes Patient is seen and examined at bedside. States having nausea associated with melena this morning. Also reports dizziness. Denies any chest pain, abdominal pain. Discussed with patient's family at bedside. Also discussed with cardiology today. On exam patient is obese, no apparent distress, normocephalic atraumatic, EOMI,+ subconjunctival hemorrhage, S1-S2,+ murmur,+ pedal edema, abdomen soft, nontender, normal bowel sounds, alert, awake, oriented, grossly no focal deficits. Melena in setting of anticoagulation use with Eliquis Supratherapeutic INR (was discontinued Coumadin previously) Acute blood loss anemia Hypokalemia Hypomagnesemia Subconjunctival hemorrhage H/O gastric angiectasia S/P APC , colonic diverticulosis on CT Recent subdural hematoma, intermittent epistaxis H/O paroxysmal A-fib, nonischemic cardiomyopathy Given recurrent bleeding issues, anticoagulation discontinued. Will likely need watchman's procedure as outpatient Monitor H&H and transfuse as needed Appreciate GI, cardiology input Clear liquid diet for today Continue IV Protonix for now I personally interviewed and examined at bedside. Patient's care is coordinated with Eve Turner PA-C. I have reviewed the advanced practitioner's documentation, and I agree with plan of care. Please refer to the documentation above for details of patient's presentation and for discussion of other issues. I spent a total [id number] coordinating, documenting, and providing care for this patient excluding time spent in the performance of separately billed services. Subjective Patient seen and examined. No apparent distress. Denies any abdominal pain/nausea/vomiting. Denies any further melena overnight. Review of Systems Review of Systems: All systems reviewed & are unremarkable except as noted in HPI & below Physical Exam Constitutional: WD/WN, vitals as above Eyes: PERRL, conjunctivae normal, anicteric sclerae (Right eye redness and bruising, no pain) Neck: trachea midline, no thyromegaly Respiratory: normal respiratory effort, lungs clear to auscultation Cardiovascular: RRR, no murmur, no edema Gastrointestinal (Abdomen): normal bowel sounds, soft, nontender, no hepatosplenomegaly Musculoskeletal: no cyanosis or clubbing, extremities motor strength 5/5 Skin: no rashes, warm and dry Neurologic: PERRL, EOMI, accommodation nl, no face palsy, no dysarthria Psychiatric: A+Ox3, euthymic affect Lymphatic: no cervical or axillary lymphadenopathy Results & Data Results & Data Vital Signs (Past 12 Hours) Vital Signs Temp Pulse Pulse Resp BP BP Pulse Ox 07/04/24 11:10 36.7 C 73 20 123/74 98 07/04/24 10:55 36.7 C 70 18 101/63 97 07/04/24 10:36 36.8 C 75 20 99/65 L 98 07/04/24 08:00 71 07/04/24 08:00 07/04/24 07:45 36.9 C 80 17 106/56 L 94 07/04/24 02:01 36.8 C 77 16 119/72 91 O2 Del Method 07/04/24 11:10 07/04/24 10:55 07/04/24 10:36 07/04/24 08:00 07/04/24 08:00 Room Air 07/04/24 07:45 Room Air 07/04/24 02:01 Room Air Diagnostic Findings Laboratory Results WBC 3.64 K/ul (4.8-10.8) L 07/04/24 05:54 RBC 2.37 M/uL (4.20-5.40) L 07/04/24 05:54 Hgb 7.4 g/dl (12.0-16.0) L 07/04/24 05:54 Hct 23.1 % (37.0-47.0) L 07/04/24 05:54 MCV 97.5 fL (80.0-100.0) 07/04/24 05:54 MCH 31.2 pg (25.0-34.0) 07/04/24 05:54 MCHC 32.0 g/dL (32.0-36.0) 07/04/24 05:54 RDW Std Deviation 62.5 fL (36.4-46.3) H 07/04/24 05:54 RDW Coeff of Ivanna 17.4 % (11.5-14.5) H 07/04/24 05:54 Plt Count 120 K/uL (130-400) L 07/04/24 05:54 MPV 9.2 fL (9.4-12.4) L 07/04/24 05:54 Immature Gran % (Auto) 0.3 % 07/04/24 05:54 Neut % (Auto) 64.0 % 07/04/24 05:54 Lymph % (Auto) 24.2 % 07/04/24 05:54 Dewitt % (Auto) 10.4 % 07/04/24 05:54 Eos % (Auto) 0.8 % 07/04/24 05:54 Baso % (Auto) 0.3 % 07/04/24 05:54 Neut # (Auto) 2.33 K/uL (1.40-6.50) 07/04/24 05:54 Lymph # (Auto) 0.88 K/uL (1.20-3.40) L 07/04/24 05:54 Dewitt # (Auto) 0.38 K/uL (0.11-0.59) 07/04/24 05:54 Eos # (Auto) 0.03 K/uL (0.00-0.50) 07/04/24 05:54 Baso # (Auto) 0.01 K/uL (0.00-0.20) 07/04/24 05:54 Immature Gran # (Auto) 0.01 K/uL (0.01-0.20) 07/04/24 05:54 RBC Morphology Unremarkable 07/04/24 05:54 PT 16.1 Seconds (9.0-12.0) H 07/04/24 05:54 INR 1.5 (0.9-1.1) H 07/04/24 05:54 APTT 110 Seconds (21-31) H* 07/03/24 19:13 PTT Ratio 4.1 07/03/24 19:13 Sodium 141 mmol/L (136-145) 07/04/24 05:54 Potassium 3.6 mmol/L (3.5-5.1) 07/04/24 05:54 Chloride 107 mmol/L (98-107) 07/04/24 05:54 Carbon Dioxide 30 mmol/L (21-32) 07/04/24 05:54 Anion Gap 4 (3-11) 07/04/24 05:54 BUN 22 mg/dl (6-23) 07/04/24 05:54 Creatinine 0.84 mg/dl (0.6-1.2) 07/04/24 05:54 Est Cr Clr Drug Dosing 47.4 ml/min 07/04/24 05:54 eGFR 70.20 07/04/24 05:54 BUN/Creatinine Ratio 26.2 (10-20) H 07/04/24 05:54 Glucose 111 mg/dl (70-99(Fasting)) H 07/04/24 05:54 Calcium 8.1 mg/dl (8.6-10.3) L 07/04/24 05:54 Magnesium 1.6 mg/dl (1.7-2.4) L 07/03/24 14:05 Total Bilirubin 0.5 mg/dl (0.2-1.0) 07/03/24 14:05 AST 31 U/L (13-39) 07/03/24 14:05 ALT 17 U/L (7-52) 07/03/24 14:05 Alkaline Phosphatase 35 U/L (34-104) 07/03/24 14:05 Total Protein 6.0 gm/dl (6.0-8.3) 07/03/24 14:05 Albumin 3.6 gm/dl (3.4-5.0) 07/03/24 14:05 Globulin 2.4 gm/dl (2.5-4.0) L 07/03/24 14:05 Albumin/Globulin Ratio 1.5 (0.9-2) 07/03/24 14:05 POC Stool Occult Blood Positive (Negative) A 07/03/24 18:03 Blood Type O Positive 07/03/24 14:03 Antibody Screen NEGATIVE 07/03/24 14:03 Crossmatch See Detail 07/03/24 14:03 (6) GERD (gastroesophageal reflux disease) Esophagitis presence: without esophagitis Qualified Code(s): K21.9 - Gastro- esophageal reflux disease without esophagitis (7) Hypothyroidism Hypothyroidism type: unspecified Qualified Code(s): E03.9 - Hypothyroidism, unspecified
[2024-07-04 15:41] LABS: Hematocrit (blood only) 25.2 % (37.0-47.0); Hemoglobin 8.2 g/dl (12.0-16.0)
--- NOTE | 2024-07-04 16:25 | Electrocardiogram Report ---
Test Reason : Blood Pressure : */* mmHG Vent. Rate : 77 BPM Atrial Rate : 77 BPM P-R Int : 144 ms QRS Dur : 130 ms QT Int : 458 ms P-R-T Axes : 74 242 32 degrees QTcB Int : 518 ms Atrial-sensed ventricular-paced rhythm Abnormal ECG When compared with ECG of 21-May-2024 11:06, Vent. rate has increased by 9 bpm Confirmed by Chava De Los Santos ([id number]) on 07/04/2024 4:25:39 PM Referred By: Confirmed By: Chava De Los Santos
[2024-07-05 06:20] LABS: Hemoglobin 7.3 g/dl (12.0-16.0); Mean Corpuscular Hemoglobin 30.7 pg (25.0-34.0); Mean Corpuscular Hgb Conc 31.7 g/dL (32.0-36.0); Mean Corpuscular Volume 96.6 fL (80.0-100.0); Mean Platelet Volume 9.5 fL (9.4-12.4); Platelet Count 125 K/uL (130-400); RDW Coefficient of Variation 18.3 % (11.5-14.5); RDW Standard Deviation 62.8 fL (36.4-46.3); Red Blood Count 2.38 M/uL (4.20-5.40)
[2024-07-05 06:29] LABS: Calcium 7.8 mg/dl (8.6-10.3); Creatinine Clr Calc Pharmacy 51.6 ml/min; Magnesium 1.6 mg/dl (1.7-2.4); Potassium 3.1 mmol/L (3.5-5.1)
[2024-07-05 06:40] LABS: INR 1.5 (0.9-1.1); Partial Thromboplastin Ratio 1.3; Partial Thromboplastin Time 36 Seconds (21-31)
[2024-07-05 07:55] LABS: Reticulated Hemoglobin 30.2 pg (28.2-36.6); Reticulocyte % 2.71 % (0.50-2.00)
[2024-07-05 08:06] LABS: Albumin Level 2.9 gm/dl (3.4-5.0); Bilirubin Direct 0.2 mg/dl (0-0.2); Bilirubin,Total 0.9 mg/dl (0.2-1.0); Total Protein 5.2 gm/dl (6.0-8.3)
[2024-07-05] MEDS: POTASSIUM CHLORIDE CRTAB 20 MEQ TABCR PO STA (08:35)
[2024-07-05] MEDS: MAGNESIUM OXIDE 400 MG TAB PO ONE (08:35)
[2024-07-05] MEDS: MAGNESIUM SULFATE / D5W 1 GM/100 ML BAG IV SCH (09:34)
--- NOTE | 2024-07-05 10:27 | Gastroenterology Progress Note ---
Date of Service July 05, 2024 Assessment & Plan (1) GI bleed: Plan: -Continue IV PPI gtt -NM GI bleed scan negative -Continue to monitor H/H -EGD & colonoscopy tomorrow Admission and Anticipated Discharge Date Admission Date: July 03, 2024 Supervising Physician Co-Signing Physician Notes I examined the patient and reviewed patient's chart , laboratory data and imaging studies. I agree with with assessment and plan of care as suggested by advanced practice provider. Ongoing rectal bleeding, worsening anemia. Off anticoagulation. Schedule colonoscopy and upper endoscopy for tomorrow. Subjective Patient is an 79 yo female with GI bleeding. INR has been corrected, however patient is still having melena and is now passing bright red blood as well. No abdominal pain. H/H 7.3/23.0. Review of Systems Gastrointestinal: + blood in stools and + melena; no abdom inal pain Physical Exam Constitutional: well developed Gastrointestinal (Abdomen): normal bowel sounds, soft, nontender, no hepatosplenomegaly Results & Data Results & Data Vital Signs (Past 12 Hours) Vital Signs Temp Pulse Pulse Resp BP Pulse Ox O2 Del Method 07/05/24 08:19 36.8 C 77 18 124/75 97 Room Air 07/05/24 05:06 36.8 C 78 16 109/66 98 Room Air 07/04/24 23:07 90 07/04/24 22:33 37.1 C 81 20 123/68 96 Room Air PG Care Time/CCT Total # of Minutes Spent Total Time Spent with Patient: Total time spent is greater than 50% in coordination of care (as documented) at patient's floor/unit and/or counseling patient: Coding Level of Care Code 44923 SUB INP/OBS CARE 3/50MIN Diagnoses Gastrointestinal hemorrhage with melena K92.2
--- NOTE | 2024-07-05 10:51 | Cardiology Progress Note ---
Date of Service July 05, 2024 Assessment & Plan (1) Melena: (2) GI bleed: (3) Paroxysmal atrial fibrillation: (4) Nonischemic cardiomyopathy: (5) Biventricular cardiac pacemaker in situ: (6) Subdural hematoma: Plan Presentation with recurrent GI bleeding along with right-sided subconjunctival hemorrhage, periorbital ecchymosis, intermittent epistaxis. INR significantly elevated despite prior discontinuation of Coumadin anticoagulation Nonischemic cardiomyopathy status post biventricular pacer defibrillator implantation. Compensated systolic and diastolic heart failure. History of September 2022 right atrial thrombus connected to the pacer lead, resolving on warfarin Paroxysmal atrial fibrillation Recent subdural hematoma Recommendations: Transfuse pRBC's Further evaluation as per GI. Continue to hold all anticoagulants. Continue metoprolol, Entresto, furosemide, amiodarone, and low dose rosuvastatin. Admission and Anticipated Discharge Date Admission Date: July 03, 2024 Supervising Physician Co-Signing Physician Notes Attending attestation: Case reviewed with the advanced practitioner. I have personally performed a history and physical examination on the patient. I have reviewed the advanced practitioner's documentation on the date of service referenced in note, and I agree with, and take responsibility for the plan of care. Tagged red blood cell scan negative. Patient receiving another unit of packed red blood cells during my assessment. Tentative plan for repeat colonoscopy tomorrow. Anticoagulation antiplatelet therapy on hold. The patient's presenting finding of a supratherapeutic INR, greater than 10 x 3 measurements is still perplexing. She is adamant that had not mistakenly taken Coumadin. Hepatic panel within normal limits. Ongoing workup in progress under the direction of Dr. Stearns with whom I discussed the case by phone. Future considerations include hematology consultation as inpatient or outpatient for further advice with regards to the etiology of her supratherapeutic INR and spontaneous bleeding on presentation. She has two indications for anticoagulation, the first is paroxysmal atrial fibrillation, the second is a history of spontaneous thrombus on a right atrial pacemaker lead. . DO Neptali Kinney Patient seen and examined earlier this morning. + Nausea, bloody diarrhea, pressure. INR 1.5. Hemoglobin 7.3. Potassium 3.1. Magnesium 1.6. No chest pain. No palpitations. No shortness of breath. Telemetry: Paced in the 70s and 80s. Review of Systems Review of Systems: Complete Review of Systems is as stated above, negative, or noncontributory. Physical Exam Physical Exam: General: A&Ox3. NAD. HENT: Atraumatic. Ecchymosis around right eye. Eyes: Subconjunctival hemorrhage on the right. Clear on the left. Neck: No JVD. Heart: Regular, paced. Systolic murmur. No rub. Lungs: Clear to auscultation. Abdomen: +BS. Soft. Nontender. No masses or organomegaly. Extremities: No clubbing, cyanosis, or edema. Limited neurological examination is without focal deficits. Pulses: Posterior tibial=1/4. Results & Data Vital Signs (Past 12 Hours) Vital Signs Temp Pulse Pulse Resp BP Pulse Ox O2 Del Method 07/05/24 08:19 36.8 C 77 18 124/75 97 Room Air 07/05/24 05:06 36.8 C 78 16 109/66 98 Room Air 07/04/24 23:07 90 Laboratory Results Cardiac Enzymes 07/05/24 Range/Units 05:44 AST 26 (13-39) U/L Lactate Dehydrogenase 202 (86-244) U/L Coagulation 07/05/24 Range/Units 05:44 PT 16.0 H (9.0-12.0) Seconds APTT 36 H (21-31) Seconds CBC 07/04/24 07/05/24 Range/Units 15:24 05:44 WBC 3.90 L (4.8-10.8) K/ul RBC 2.38 L (4.20-5.40) M/uL Hgb 8.2 L 7.3 L (12.0-16.0) g/dl Hct 25.2 L 23.0 L (37.0-47.0) % Plt Count 125 L (130-400) K/uL Comprehensive Metabolic Panel 07/05/24 Range/Units 05:44 Sodium 139 (136-145) mmol/L Potassium 3.1 L (3.5-5.1) mmol/L Chloride 106 (98-107) mmol/L Carbon Dioxide 30 (21-32) mmol/L BUN 20 (6-23) mg/dl Creatinine 0.77 (0.6-1.2) mg/dl Glucose 111 H (70-99(Fasting)) mg/dl Calcium 7.8 L (8.6-10.3) mg/dl Direct Bilirubin 0.2 (0-0.2) mg/dl AST 26 (13-39) U/L ALT 13 (7-52) U/L Alkaline Phosphatase 28 L (34-104) U/L Total Protein 5.2 L (6.0-8.3) gm/dl Albumin 2.9 L (3.4-5.0) gm/dl Intake and Output 07/04/24 07/05/24 07/05/24 22:59 06:59 14:59 Intake Total 1312.333 / 2121.000 300 / 2121.000 100 / 100 Balance 1312.333 / 2121.000 300 / 2121.000 100 / 100 Intake: IV 1072.333 / 1371.000 100 / 1371.000 100 / 100 Nss + 20Meq KCl 20 meq In 1,000 1000 / 1000 ml @ 60 mls/hr IV .[id number] Rx#:[id number] PANTOprazole 40 mg In Dextrose 72.333 / 371.000 100 / 371.000 100 / 100 5% Mini-B 100 ml @ 8 MG/HR 20 mls/hr IV Q5H ERIKA Rx#:[id number] Oral 240 / 440 200 / 440 Other: # Unmeasured Voids 1 3 Weight 78.8 kg Weight Measurement Method Standing Scale
[2024-07-05] MEDS ORDERED: SODIUM CHLORIDE 0.9% 50 ML IV PRN (11:51)
[2024-07-05] MEDS ORDERED: SODIUM CHLORIDE 0.9% 100 ML IV PRN (11:51)
--- NOTE | 2024-07-05 11:54 | Hospitalist Progress Note ---
Date of Service July 05, 2024 Assessment & Plan (1) Spontaneous intracranial hemorrhage: (2) HTN (hypertension): (3) Paroxysmal atrial fibrillation: (4) Supratherapeutic INR: (5) GI bleed: (6) GERD (gastroesophageal reflux disease): (7) Hypothyroidism: (8) Pacemaker: (9) ICD (implantable cardioverter-defibrillator) in place: (10) Atrial fibrillation: Plan Assessment and plan: Hematochezia/R eye ecchymosis: Supratherapeutic INR Acute blood loss anemia Recent hospitalization on 05/20 for GI bleed/supratherapeutic INR S/p EGD on 05/22/2020 42 small angioectasias without bleeding Coumadin was discontinued and the patient was transitioned to Eliquis on 06/28 Patient reports tarry stools x 2 days, hemoglobin 7.4 from 8.1 a month ago Hemodynamically stable, serial H/H, heme stool +, INR on arrival over 9 S/p vitamin K administration in ED, GI/cardiology consulted and following 07/05: S/p 2 units PRBC, will give 5 mg vitamin K today, INR still elevated at 1.5 Initiate DIC workup, check hapto-/reticulocyte/peripheral smear 1 episode of bloody diarrhea this a.m., await results of NM GI bleeding testing Recent ICH: Patient was transferred to [facility] on 05/23/2024 for evaluation by NSG Neuro exam stable, warfarin was temporarily held at that time and Eliquis was started on 06/28 Hx systolic CHF/AF/nonischemic cardiomyopathy/CAD/atrial thrombus: Continue amiodarone, Eliquis discontinued Continue statin/metoprolol/hold Lasix for now Hx GERD: Hold Protonix, continue Protonix drip A total of 45 minutes was spent on chart review/review medical history/discussion with consultants/facilitating plan of care Full code DVT prophylaxis: Eliqu[place] hold-SCDs, avoid AC with anemia Admission and Anticipated Discharge Date Admission Date: July 03, 2024 Supervising Physician Co-Signing Physician Notes Patient is seen and examined at bedside. Continues to have bright red rectal bleed. Reports nausea and some dizziness today. Denies any abdominal pain today. NM bleeding scan negative. On exam patient is obese, no apparent distress, normocephalic atraumatic, EOMI,+ subconjunctival hemorrhage, S1-S2,+ murmur,+ pedal edema, abdomen soft, nontender, normal bowel sounds, alert, awake, oriented, grossly no focal deficits. Melena in setting of anticoagulation use with Eliquis Supratherapeutic INR (was discontinued Coumadin previously) Acute blood loss anemia Hypokalemia Hypomagnesemia Subconjunctival hemorrhage H/O gastric angiectasia S/P APC , colonic diverticulosis on CT Recent subdural hematoma, intermittent epistaxis H/O paroxysmal A-fib, nonischemic cardiomyopathy Given recurrent bleeding issues, anticoagulation discontinued. Will likely need watchman's procedure as outpatient S/P PRBCs, Vit K Monitor H&H and transfuse as needed Appreciate GI, cardiology input Clear liquid diet for today Started on bowel prep for EGD, colonoscopy tomorrow Given persistent elevated INR, will check DIC workup. Continue IV Protonix N.p.o. after midnight I personally interviewed and examined at bedside. Patient's care is coordinated with Eve PARRA. I have reviewed the advanced practitioner's documentation, and I agree with plan of care. Please refer to the documentation above for details of patient's presentation and for discussion of other issues. I spent a total [id number] coordinating, documenting, and providing care for this patient excluding time spent in the performance of separately billed services. Subjective Patient seen and examined. Reports 1 episode of bright red bloody diarrhea this a.m. Does also report some nausea. Denies any abdominal pain or further melena overnight Review of Systems Review of Systems: All systems reviewed & are unremarkable except as noted in HPI & below Physical Exam Constitutional: WD/WN, vitals as above Eyes: PERRL, conjunctivae normal, anicteric sclerae (Right eye redness and bruising, no pain) Neck: trachea midline, no thyromegaly Respiratory: normal respiratory effort, lungs clear to auscultation Cardiovascular: RRR, no murmur, no edema Gastrointestinal (Abdomen): normal bowel sounds, soft, nontender, no hepatosplenomegaly Musculoskeletal: no cyanosis or clubbing, extremities motor strength 5/5 Skin: no rashes, warm and dry Neurologic: PERRL, EOMI, accommodation nl, no face palsy, no dysarthria Psychiatric: A+Ox3, euthymic affect Lymphatic: no cervical or axillary lymphadenopathy Results & Data Results & Data Vital Signs (Past 12 Hours) Vital Signs Temp Pulse Resp BP Pulse Ox O2 Del Method 07/05/24 11:19 36.8 C 83 19 96/60 L 98 Room Air 07/05/24 08:19 36.8 C 77 18 124/75 97 Room Air 07/05/24 05:06 36.8 C 78 16 109/66 98 Room Air Diagnostic Findings Laboratory Results WBC 3.90 K/ul (4.8-10.8) L 07/05/24 05:44 RBC 2.38 M/uL (4.20-5.40) L 07/05/24 05:44 Hgb 7.3 g/dl (12.0-16.0) L 07/05/24 05:44 Hct 23.0 % (37.0-47.0) L 07/05/24 05:44 MCV 96.6 fL (80.0-100.0) 07/05/24 05:44 MCH 30.7 pg (25.0-34.0) 07/05/24 05:44 MCHC 31.7 g/dL (32.0-36.0) L 07/05/24 05:44 RDW Std Deviation 62.8 fL (36.4-46.3) H 07/05/24 05:44 RDW Coeff of Ivanna 18.3 % (11.5-14.5) H 07/05/24 05:44 Plt Count 125 K/uL (130-400) L 07/05/24 05:44 MPV 9.5 fL (9.4-12.4) 07/05/24 05:44 Immature Gran % (Auto) 0.3 % 07/04/24 05:54 Neut % (Auto) 64.0 % 07/04/24 05:54 Lymph % (Auto) 24.2 % 07/04/24 05:54 [place] % (Auto) 10.4 % 07/04/24 05:54 Eos % (Auto) 0.8 % 07/04/24 05:54 Baso % (Auto) 0.3 % 07/04/24 05:54 Reticulocyte % (Auto) 2.71 % (0.50-2.00) H 07/05/24 05:44 Neut # (Auto) 2.33 K/uL (1.40-6.50) 07/04/24 05:54 Lymph # (Auto) 0.88 K/uL (1.20-3.40) L 07/04/24 05:54 [place] # (Auto) 0.38 K/uL (0.11-0.59) 07/04/24 05:54 Eos # (Auto) 0.03 K/uL (0.00-0.50) 07/04/24 05:54 Baso # (Auto) 0.01 K/uL (0.00-0.20) 07/04/24 05:54 Reticulocyte # 0.060 10^6/uL (0.020-0.100) 07/05/24 05:44 Immature Gran # (Auto) 0.01 K/uL (0.01-0.20) 07/04/24 05:54 RBC Morphology Unremarkable 07/04/24 05:54 Peripher Smr Path Cons 07/05/24 05:44 Immature Retic Fraction 33.0 % (2.3-15.9) H 07/05/24 05:44 Retic Hgb Content 30.2 pg (28.2-36.6) 07/05/24 05:44 PT 16.0 Seconds (9.0-12.0) H 07/05/24 05:44 INR 1.5 (0.9-1.1) H 07/05/24 05:44 APTT 36 Seconds (21-31) H 07/05/24 05:44 PTT Ratio 1.3 07/05/24 05:44 Sodium 139 mmol/L (136-145) 07/05/24 05:44 Potassium 3.1 mmol/L (3.5-5.1) L 07/05/24 05:44 Chloride 106 mmol/L (98-107) 07/05/24 05:44 Carbon Dioxide 30 mmol/L (21-32) 07/05/24 05:44 Anion Gap 3 (3-11) 07/05/24 05:44 BUN 20 mg/dl (6-23) 07/05/24 05:44 Creatinine 0.77 mg/dl (0.6-1.2) 07/05/24 05:44 Est Cr Clr Drug Dosing 51.6 ml/min 07/05/24 05:44 eGFR 77.93 07/05/24 05:44 BUN/Creatinine Ratio 26.0 (10-20) H 07/05/24 05:44 Glucose 111 mg/dl (70-99(Fasting)) H 07/05/24 05:44 Calcium 7.8 mg/dl (8.6-10.3) L 07/05/24 05:44 Magnesium 1.6 mg/dl (1.7-2.4) L 07/05/24 05:44 Total Bilirubin 0.9 mg/dl (0.2-1.0) 07/05/24 05:44 Direct Bilirubin 0.2 mg/dl (0-0.2) 07/05/24 05:44 AST 26 U/L (13-39) 07/05/24 05:44 ALT 13 U/L (7-52) 07/05/24 05:44 Alkaline Phosphatase 28 U/L (34-104) L 07/05/24 05:44 Lactate Dehydrogenase 202 U/L (86-244) 07/05/24 05:44 Total Protein 5.2 gm/dl (6.0-8.3) L 07/05/24 05:44 Albumin 2.9 gm/dl (3.4-5.0) L 07/05/24 05:44 Globulin 2.4 gm/dl (2.5-4.0) L 07/03/24 14:05 Albumin/Globulin Ratio 1.5 (0.9-2) 07/03/24 14:05 POC Stool Occult Blood Positive (Negative) A 07/03/24 18:03 Blood Type O Positive 07/03/24 14:03 Antibody Screen NEGATIVE 07/03/24 14:03 Crossmatch See Detail 07/03/24 14:03 (6) GERD (gastroesophageal reflux disease) Esophagitis presence: without esophagitis Qualified Code(s): K21.9 - Gastro- esophageal reflux disease without esophagitis (7) Hypothyroidism Hypothyroidism type: unspecified Qualified Code(s): E03.9 - Hypothyroidism, unspecified
[2024-07-05] MEDS: PHYTONADIONE 5 MG in DEXTROSE 5% 50 ML IV ONE (14:33)
--- NOTE | 2024-07-05 14:35 | Nuclear Medicine Report ---
TAGGED RED BLOOD CELL GI BLEEDING SCAN CLINICAL HISTORY: GI bleeding COMPARISON STUDY: CT of the abdomen and pelvis May 20, 2024. TECHNIQUE: Following the IV administration of 26 mCi of technetium 99m UltraTag labeled red blood melissa ls, nuclear bleeding scan was performed. Anterior flow images were obtained every 2 seconds for a tot al 48 seconds. Anterior static images were obtained every 5 minutes for a total of 60 minutes. FINDINGS: No areas of abnormal radiotracer accumulation within the abdomen or pelvis are identified on this 60 minute examination. Normal radiotracer distribution is noted. There is no evidence for GI bleed on this study. IMPRESSION: No scintigraphic evidence for an active GI bleed during this 60 minute study. ACT 112: Negative or not required by law. Electronically signed by: Golden Larsen M.D. 07/05/2024 2:34 PM
[2024-07-05] MEDS: LAVAGE SOLUTION 4000ML PO SCH (18:21)
[2024-07-05 21:23] LABS: Hematocrit (blood only) 30.8 % (37.0-47.0)
[2024-07-06 06:25] LABS: Basophils # (auto) 0.01 K/uL (0.00-0.20); Basophils % (auto) 0.3 %; Eosinophils % (auto) 2.7 %; Hemoglobin 8.8 g/dl (12.0-16.0); Immature Granulocytes # (auto) 0.01 K/uL (0.01-0.20); Immature Granulocytes % (auto) 0.3 %; Lymphocytes # (auto) 0.68 K/uL (1.20-3.40); Lymphocytes % (auto) 18.4 %; Mean Corpuscular Hemoglobin 30.9 pg (25.0-34.0); Mean Corpuscular Hgb Conc 32.6 g/dL (32.0-36.0); Mean Corpuscular Volume 94.7 fL (80.0-100.0); Mean Platelet Volume 9.4 fL (9.4-12.4); Monocytes # (auto) 0.28 K/uL (0.11-0.59); Monocytes % (auto) 7.6 %; Neutrophils # (auto) 2.62 K/uL (1.40-6.50); Neutrophils % (auto) 70.7 %; Platelet Count 120 K/uL (130-400); RDW Coefficient of Variation 17.9 % (11.5-14.5); Red Blood Count 2.85 M/uL (4.20-5.40)
[2024-07-06 06:50] LABS: Albumin Globulin Ratio 1.3 (0.9-2); Albumin Level 3.2 gm/dl (3.4-5.0); BUN Creatinine Ratio 14.1 (10-20); Bilirubin,Total 1.2 mg/dl (0.2-1.0); Calcium 8.1 mg/dl (8.6-10.3); Creatinine Clr Calc Pharmacy 52.9 ml/min; Globulin 2.4 gm/dl (2.5-4.0); Potassium 3.8 mmol/L (3.5-5.1); Total Protein 5.6 gm/dl (6.0-8.3)
[2024-07-06 06:52] LABS: INR 1.2 (0.9-1.1); Prothrombin Time 13.3 Seconds (9.0-12.0)
--- NOTE | 2024-07-06 08:00 | Hospitalist Progress Note ---
Date of Service July 06, 2024 Assessment & Plan (1) HTN (hypertension): (2) Paroxysmal atrial fibrillation: (3) Supratherapeutic INR: (4) GI bleed: (5) GERD (gastroesophageal reflux disease): (6) Hypothyroidism: (7) Pacemaker: (8) ICD (implantable cardioverter-defibrillator) in place: (9) Atrial fibrillation: (10) Conjunctival hemorrhage of right eye: Plan Assessment and plan: Hematochezia/R eye ecchymosis: Supratherapeutic INR Acute blood loss anemia Recent hospitalization on 05/20 for GI bleed/supratherapeutic INR S/p EGD on 05/22/2020 42 small angioectasias without bleeding Coumadin was DC --> transitioned to Eliquis on 06/28 Patient reports tarry stools x 2 days, hemoglobin 7.4 from 8.1 a month ago In ED, heme stool +, INR on arrival over 9 S/p vitamin K administration in ED and 2 UPRBC on 07/05, GI/cardiology consulted; on Protonix gtt -NM tagged red blood cell scan negative on 07/05 -Pt reports compliance pre admission with Coumadin 07/06: Hgb 10.0--> 8.8--> recheck post scope INR 1.2 today DIC w/u ordered on 07/05: Reticulocyte count 2.71, peripheral smear indicates normocytic anemia suggestive of thrombocytopenia and lymphopenia and hapto 91 Most recent anemia panel from 05/22: Folate > 22, B12 261, Fe+ 31 Based on results, may benefit from hematology consultation NPO for planned repeat colonoscopy today; prep completed EGD performed today and multiple 5-9 mm gastric polyps noted without evidence of esophagitis or esophageal varicies Colonoscopy performed today; no polyps; internal hemorrhoids Questions answered to patient and as to why she is on blood thinner to begin with: * pAF * spontaneous thrombus on R Atrial PM lead Restarted Heart Healthy diet Will need Heme f/u post DC Recent ICH: Patient was transferred to [facility] on 05/23/2024 for evaluation by NSG Neuro exam stable, warfarin was temporarily held at that time and Eliquis was started on 06/28 Hx systolic CHF/AF/nonischemic cardiomyopathy/CAD/atrial thrombus: Continue amiodarone, Eliquis discontinued Continue statin/metoprolol/hold Lasix for now Hx GERD: continue Protonix drip Disposition: Code Status: Full code DVT prophylaxis: Eliqupal hold-SCDs, avoid AC with anemia/hemorrhage I spent a total of 48 minutes coordinating, documenting, and providing care for this patient excluding time spent in the performance of separately billed services. All of the aforementioned completed while collaborating with the assigned attending physician for a full treatment plan. Please see their addendum for further details. Admission and Anticipated Discharge Date Admission Date: July 03, 2024 Supervising Physician Co-Signing Physician Notes Patient seen and examined C scope and EGD performed today. Reviewed result with patient. No active bleed noted Discussed with GI team Plan for outpatient capsule endoscopy Monitor H/H for now. If stable, plan for dc tomorrow Outpatient Heme f/u Agree with plans as detailed by Carol PARRA I spent a total of 45 minutes coordinating, documenting and providing care for this patient excluding time spent in performance of separately billed services Subjective Pt sitting in her hospital bed in no apparent distress. at bedside. Denies KELLY, dizziness, visual changes (including blurry or double), chest pain, palpitations, SOB, N/V Left hand and upper arm with increased swelling; IV infiltrated. Completed bowel prep; per nursing clear output Per , conjunctival hemorrhage not worsening; ecchymosis under right eye improving NPO after MN for planned repeat c-scope today. See below for A/P Review of Systems Review of Systems: Neuro: (-) Falls, trauma, slurred speech HEENT: (-) KELLY, dizziness, dysphagia, visual or auditory changes CV: (-) CP, palpitations, swelling Resp: (-) SOB GI: (-) appetite changes, N/V/D, bowel changes : (-) urinary changes Skin: (-) rashes Psych: (-) anxiety, depression Physical Exam Physical Exam: Neuro: AAOx4, PERRLA, no aphagia, memory changes, CNII-XII grossly intact HEENT: R eye with conjunctival hemorrhage; two pea-sized areas of ecchymosis under R eye. head normocephalic, moist mucus membranes CV: S1/S2, (-) M/G/R, (-) edema, cap refill < 3 seconds Resp: Lungs CTA in all beltran. On RA GI: Abdomen S/NT/ND, Ax4 bowel sounds, (-) CVA tenderness Musculoskeletal: 5/5 B/L UE strength, 5/5 B/L LE strength. No gait disturbance Skin: (-) rashes , (-) erythema. (+) swelling left hand and medial aspect of upper arm; IV infiltration Psych: euthymic mood Results & Data Results & Data Vital Signs (Past 12 Hours) Vital Signs Temp Pulse Pulse Resp BP Pulse Ox O2 Del Method 07/06/24 07:38 36.6 C 75 17 119/69 98 Room Air 07/06/24 03:57 36.8 C 84 18 126/81 96 Room Air 07/05/24 23:32 36.8 C 79 18 122/73 97 Room Air 07/05/24 22:35 79 Laboratory Results Short CBC 07/05/24 07/06/24 Range/Units 21:03 06:05 WBC 3.70 L (4.8-10.8) K/ul Hgb 10.0 L 8.8 L (12.0-16.0) g/dl Hct 30.8 L 27.0 L (37.0-47.0) % Plt Count 120 L (130-400) K/uL BMP 07/06/24 06:05 Sodium 142 Potassium 3.8 D Chloride 110 H Carbon Dioxide 26 BUN 11 Creatinine 0.78 Glucose 119 H Calcium 8.1 L Liver Function 07/05/24 07/06/24 Range/Units 05:44 06:05 Total Bilirubin 0.9 1.2 H (0.2-1.0) mg/dl Direct Bilirubin 0.2 (0-0.2) mg/dl AST 26 29 (13-39) U/L ALT 13 14 (7-52) U/L Alkaline Phosphatase 28 L 32 L (34-104) U/L Albumin 2.9 L 3.2 L (3.4-5.0) gm/dl (5) GERD (gastroesophageal reflux disease) Esophagitis presence: without esophagitis Qualified Code(s): K21.9 - Gastro- esophageal reflux disease without esophagitis (6) Hypothyroidism Hypothyroidism type: unspecified Qualified Code(s): E03.9 - Hypothyroidism, unspecified
--- NOTE | 2024-07-06 09:31 | History & Physical Bridge Note ---
Date of Service July 06, 2024 History & Physical Bridge Note I have examined the patient, reviewed the History & Physical and in the interval since the performance of the History & Physical I have noted the following changes of clinical significance: no changes noted Patient prepped for a colonoscopy last night. Stool is liquid & yellow-clear. No bleeding overnight with bowel prep. H/H 8.8/27.0. Patient denies any new issues from a GI perspective. Keep NPO for EGD & colonoscopy today. Supervising Physician Co-Signing Physician Notes I examined the patient and reviewed patient's chart , laboratory data and imaging studies. I agree with with assessment and plan of care as suggested by advanced practice provider
--- NOTE | 2024-07-06 10:40 | Cardiology Progress Note ---
Date of Service July 06, 2024 Assessment & Plan (1) GI bleed: (2) Paroxysmal atrial fibrillation: (3) Nonischemic cardiomyopathy: (4) Biventricular cardiac pacemaker in situ: (5) Subdural hematoma: Plan Presentation with recurrent GI bleeding along with right-sided subconjunctival hemorrhage, periorbital ecchymosis, intermittent epistaxis. INR significantly elevated despite prior discontinuation of Coumadin anticoagulation, on Eliquis since 06/28/2024 Nonischemic cardiomyopathy status post biventricular pacer defibrillator implantation, compensated systolic and diastolic heart failure. History of September 2022 right atrial thrombus connected to the pacer lead, resolving on warfarin Paroxysmal atrial fibrillation Recent subdural hematoma Recommendations: For endoscopy today. Recommend Hematology consultation Anticoagulation remains on hold for now, pending the above, notably with two indications (spontaneous thrombus on a right atrial pacemaker lead and PAF) Continue metoprolol, Entresto, furosemide, amiodarone, and low dose rosuvastatin. Admission and Anticipated Discharge Date Admission Date: July 03, 2024 Supervising Physician Co-Signing Physician Notes Attending attestation: Case reviewed with the advanced practitioner. I have personally performed a history and physical examination on the patient. I have reviewed the advanced practitioner's documentation on the date of service referenced in note, and I agree with, and take responsibility for the plan of care. Patient seen post EGD and Colonoscopy. No source of bleeding identified. Capsule endoscopy recommended as outpatient. Remain of anticoagulation indefinitely pending hematology evaluation. DO Neptali Kinney Patient seen and examined just prior to leaving for endoscopy. Yellow liquid stool reported, no melena or hematochezia. No chest pain, shortness of breath, palpitations, or edema. Telemetry: Paced with occasional PVC's, heart rates ranging from the 60's to the 90's. Review of Systems Review of Systems: Complete Review of Systems is as stated above, negative, or noncontributory. Physical Exam Physical Exam: General: A&Ox3. NAD. HENT: Healing ecchymosis around right eye. Eyes: Improving subconjunctival hemorrhage on the right. Clear on the left. Neck: No overt JVD. Heart: Regular, paced. Systolic murmur. No rub. Lungs: Clear to auscultation. Abdomen: +BS. Extremities: No edema. Results & Data Vital Signs (Past 12 Hours) Vital Signs Temp Pulse Pulse Resp BP Pulse Ox O2 Del Method 07/06/24 09:38 65 07/06/24 08:53 Room Air 07/06/24 07:38 36.6 C 75 17 119/69 98 Room Air 07/06/24 03:57 36.8 C 84 18 126/81 96 Room Air 07/05/24 23:32 36.8 C 79 18 122/73 97 Room Air Laboratory Results Cardiac Enzymes 07/06/24 Range/Units 06:05 AST 29 (13-39) U/L Coagulation 07/06/24 Range/Units 06:05 PT 13.3 H (9.0-12.0) Seconds CBC 07/05/24 07/06/24 Range/Units 21:03 06:05 WBC 3.70 L (4.8-10.8) K/ul RBC 2.85 L (4.20-5.40) M/uL Hgb 10.0 L 8.8 L (12.0-16.0) g/dl Hct 30.8 L 27.0 L (37.0-47.0) % Plt Count 120 L (130-400) K/uL Neut # (Auto) 2.62 (1.40-6.50) K/uL Lymph # (Auto) 0.68 L (1.20-3.40) K/uL Wheeler # (Auto) 0.28 (0.11-0.59) K/uL Eos # (Auto) 0.10 (0.00-0.50) K/uL Baso # (Auto) 0.01 (0.00-0.20) K/uL Comprehensive Metabolic Panel 07/06/24 Range/Units 06:05 Sodium 142 (136-145) mmol/L Potassium 3.8 D (3.5-5.1) mmol/L Chloride 110 H (98-107) mmol/L Carbon Dioxide 26 (21-32) mmol/L BUN 11 (6-23) mg/dl Creatinine 0.78 (0.6-1.2) mg/dl Glucose 119 H (70-99(Fasting)) mg/dl Calcium 8.1 L (8.6-10.3) mg/dl AST 29 (13-39) U/L ALT 14 (7-52) U/L Alkaline Phosphatase 32 L (34-104) U/L Total Protein 5.6 L (6.0-8.3) gm/dl Albumin 3.2 L (3.4-5.0) gm/dl Intake and Output 07/05/24 07/06/24 07/06/24 22:59 06:59 14:59 Intake Total 455.167 / 1512.500 197.333 / 1512.500 100 / 100 Output Total Balance 450.167 / 1506.500 196.333 / 1506.500 100 / 100 Intake: IV 145.167 / 742.500 197.333 / 742.500 100 / 100 PANTOprazole 40 mg In Dextrose 94.667 / 492.000 197.333 / 492.000 100 / 100 5% Mini-B 100 ml @ 8 MG/HR 20 mls/hr IV Q5H [facility] Rx#:[id number] Phytonadione 5 mg In Dextrose 5 50.5 / 50.5 % 50 ml @ 101 mls/hr IV [facility] Rx#:[id number] Oral 0 / 460 Intake (Blood Product) Amt 310 / 310 Packed Cells, Leukoreduced 310 / 310 Unit [id number] Output: # Bowel Movements Other: Other Intake Source NPO # Unmeasured Voids 4 Weight 84.4 kg 84.4 kg Weight Measurement Method Built in [facility] Patient Weight 07/07/24 06:59 Weight 84.4 kg
--- NOTE | 2024-07-06 11:03 | Anesthesiology Consultation ---
Date of Service July 06, 2024 Assessment & Plan Chart Review Chart Review: Acceptable Risk for Surgery and Patient NOT seen in Pre Admission Testing Consults Requested none ASA ASA4 Proposed Anesthesia Anesthesia Type: MAC Risk / Benefits Reviewed With: PT / POA / Parent / Guardian, Accepts Plan and Informed Consent Obtained History Surgery Operation Date: 07/06/24 16:30 Proposed Procedures p Colonoscopy EGD Dr. Katz - Evgeny Katz MD Height/Weight Height: 4 ft 10 in Weight: 84.4 kg Allergies Allergy/AdvReac Type Severity Reaction Status Date / Time adhesive Allergy Unknown WELTS AND Verified 05/20/24 15:03 PULLS SKIN bee venom protein (honey bee) Allergy Unknown SWELLING Verified 05/20/24 15:03 Iodinated Contrast Media Allergy Unknown HIVES Verified 05/20/24 15:03 perflutren AdvReac Severe Back pain Verified 01/31/23 17:42 propylene glycol AdvReac Severe Back pain Verified 01/31/23 17:42 Medications Home Medications Medication Instructions Recorded Confirmed Last Taken calcium carbonate (Calcium 500) 1,250 mg PO QAM 11/18/18 07/03/24 07/03/24 cholecalciferol (vitamin D3) 50 1,000 unit PO QAM 11/18/18 07/03/24 07/03/24 mcg (2,000 unit) tablet (Vitamin D3) furosemide 20 mg tablet 20 mg PO 5XWK 11/18/18 07/03/24 07/03/24 levothyroxine 25 mcg tablet 25 mcg PO QAM 11/18/18 07/03/24 07/03/24 pantoprazole 40 mg tablet,delayed 40 mg PO BID 11/18/18 07/03/24 07/03/24 release pyridoxine (vitamin B6) 100 mg 100 mg PO QAM 11/18/18 07/03/24 07/03/24 tablet (Vitamin B-6) sacubitril 24 mg-valsartan 26 mg 1 tab PO BID 11/18/18 07/03/24 07/03/24 tablet (Entresto) rosuvastatin 10 mg tablet 10 mg PO DAILY 12/21/23 07/03/24 07/03/24 metoprolol succinate 25 mg 25 mg PO QAM #30 tabs 12/25/23 07/03/24 07/03/24 tablet,extended release 24 hr amiodarone 200 mg tablet 100 mg PO DAILY 05/20/24 07/03/24 07/03/24 apixaban 5 mg tablet (Eliquis) 5 mg PO BID 07/03/24 07/03/24 07/03/24 Active Medications Generic Name Dose Route Start Last Admin Trade Name Kendell PRN Reason Stop Dose Admin Amiodarone HCl 100 mg 07/04/24 09:00 07/06/24 08:46 Amiodarone 200 Mg Tab PO 08/03/24 08:59 100 mg DAILY ERIKA Administration Calcium Carbonate 1 tab 07/04/24 09:00 07/06/24 08:46 Calcium Carbonate 1250mg Tab PO 08/03/24 08:59 1 tab QAM ERIKA Administration Furosemide 20 mg 07/04/24 09:00 07/04/24 09:00 Furosemide 20 Mg Tab PO 08/03/24 08:59 20 mg [id number] ERIKA Administration Pantoprazole Sodium 40 mg/ 100 mls @ 20 mls/hr 07/03/24 18:43 07/06/24 10:27 Dextrose IV 08/02/24 18:42 8 mg/hr Q5H ERIKA 20 mls/hr Administration 8 MG/HR Levothyroxine Sodium 25 mcg 07/04/24 06:30 07/06/24 05:14 Levothyroxine Sodium 25 Mcg Tablet PO 08/03/24 06:29 25 mcg DAILYBB ERIKA Administration Metoprolol Succinate 25 mg 07/04/24 09:00 07/06/24 08:46 Metoprolol Succ 25mg Ext Rel Tab PO 08/03/24 08:59 25 mg QAM ERIKA Administration Pyridoxine HCl 100 mg 07/04/24 09:00 07/06/24 08:46 Pyridoxine Hcl 50 Mg Tab PO 08/03/24 08:59 100 mg QAM ERIKA Administration Rosuvastatin Calcium 10 mg 07/04/24 09:00 07/06/24 08:46 Rosuvastatin Calcium 10 Mg Tab PO 08/03/24 08:59 10 mg DAILY ERIKA Administration Sacubitril/Valsartan 1 tab 07/03/24 21:00 07/06/24 08:45 Valsartan/Sacubitril 26/24mg Tab PO 08/02/24 20:59 1 tab BID ERIKA Administration Vitamin D 25 mcg 07/04/24 09:00 07/06/24 08:45 Cholecalciferol 25 Mcg (1000 Units) Tab PO 08/03/24 08:59 25 mcg QAM ERIKA Administration Past Medical History Medical History Pacemaker Breast cancer Restless leg syndrome Left bundle branch block Distal radius fracture, right Nausea and vomiting after administration of anesthetic agent Osteoarthritis Cancer of right breast 2007--sx, chemo/radiation Atrial fibrillation ICD (implantable cardioverter-defibrillator) in place 08/2017 @ [facility] [place] 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 @ [facility] with Dr. Gonsalez Past Anesthesia History No Hx of Anesthesia Complications and No Family Hx of Anesthesia Complications History of PONV No Hx of PONV and No Hx of Motion Sickness Social History Smoking Status: Never smoker Do You Dip or Chew Tobacco: No Hx Alcohol Use: No Hx Substance Use: No substance use type: does not use Physical Exam Vital Signs Last Vital Signs Temp 36.6 C 07/06/24 07:38 Pulse 65 07/06/24 09:38 Resp 17 07/06/24 07:38 BP 119/69 07/06/24 07:38 Pulse Ox 98 07/06/24 07:38 O2 Del Method Room Air 07/06/24 08:53 Constitutional bruising around R eye. conjunctival hemorrhage ENMT Mouth: no dentition abnormality Thyromental Distance: > or= 3.5 Finger Breadths Mallampati Class: II Neck normal visual inspection Respiratory normal respiratory effort Auscultation: lungs clear to auscultation bilaterally Cardiovascular Rate/Rhythm: regular rate and regular rhythm Chest (Breasts) Chest: + pacemaker Psychiatric Orientation: alert Testing Laboratory Results 07/06/24 06:05 07/06/24 06:05 PT 13.3 Seconds (9.0-12.0) H 07/06/24 06:05 INR 1.2 (0.9-1.1) H 07/06/24 06:05 APTT 36 Seconds (21-31) H 07/05/24 05:44 Blood Type O Positive 07/03/24 14:03 Antibody Screen NEGATIVE 07/03/24 14:03
--- NOTE | 2024-07-06 12:34 | GI REPORT ---
[facility] Patient: MAHAD DUKES : 1945 Sex at : Female Age: 79 Years Procedure: Upper GI endoscopy Date: 07/06/2024 Attending Physician: Evgeny Katz MD Referring MD: Kirsten Hill MD Indications: - Recent gastrointestinal bleeding Medications: - Monitored Anesthesia Care Complications: - No immediate complications. Estimated Blood Loss: - Estimated blood loss: None. Procedure: - The egd scope was introduced through the mouth and advanced to the third part of the duodenum. - The upper GI endoscopy was accomplished with ease. - The patient tolerated the procedure well. Findings: - The Z-line was irregular and was found 36 cm from the incisors. - The examined esophagus was normal. No evidence of esophagitis or varices. - Multiple 5 to 9 mm sessile fundic gland polyps were found in the gastric body and in the gastric fundus. - The exam of the stomach was otherwise normal. - No evidence of angiodysplasia, ulcer, varices, bleeding site. No evidence of hiatal hernia. - The examined duodenum was normal. No evidence of blood, bleeding site, angiodysplasia or ulcer. Impression: - Z-line irregular, 36 cm from the incisors. - Normal esophagus. - No evidence of esophagitis or varices. - Multiple fundic gland polyps. - No evidence of angiodysplasia, ulcer, varices, bleeding site. No evidence of hiatal hernia. - Normal examined duodenum. - No evidence of blood, bleeding site, angiodysplasia or ulcer. - No specimens collected. Recommendation: - I anticipate no further need for intervention. - Observe patient's clinical course. - Outpatient capsule endoscopy. Procedure Code(s): - 65782, Esophagogastroduodenoscopy, flexible, transoral; diagnostic, including collection of specimen(s) by brushing or washing, when performed (separate procedure) Diagnosis Code(s): - K92.2, Gastrointestinal hemorrhage, unspecified - K22.89, Other specified disease of esophagus - K31.7, Polyp of stomach and duodenum CPT(R) - 202 copyright [employer]. All Rights Reserved. The CPT codes, CCI edits and ICD codes generated are intended as suggestions and were generated based on input data. These codes are preliminary and upon line builder review may be revised to meet current compliance and payer requirements. The provider is responsible for the final determination of appropriate codes, and modifiers. Evgeny Katz M.D., MD This document has been electronically signed. Note Initiated:07/06/2024 Note Completed:07/06/2024 12:32 PM \\[email or web address]\[email or web address]\Provation\Results\[email or web address]\[id number].pdf
--- NOTE | 2024-07-06 12:37 | GI REPORT ---
[facility] Patient: MAHAD DUKES : 1945 Sex at : Female Age: 79 Years Procedure: Colonoscopy Date: 07/06/2024 Attending Physician: Evgeny Katz MD Referring MD: Kirsten Hill MD Indications: - Rectal bleeding Medications: - Monitored Anesthesia Care Complications: - No immediate complications. Estimated Blood Loss: - Estimated blood loss: None. Procedure: - The pediatric colonoscope was introduced through the anus and advanced to the terminal ileum, with identification of the appendiceal orifice and ileocecal valve. - The colonoscopy was performed without difficulty. - The quality of the bowel preparation was evaluated using the BBPS ([place] Bowel Preparation Scale) with scores of: Right Colon = 3, Transverse Colon = 3 and Left Colon = 3 (entire mucosa seen well with no residual staining, small fragments of stool or opaque liquid). The total BBPS score equals 9. - The patient tolerated the procedure well. Findings: - The perianal examination was normal. - Internal hemorrhoids were found during retroflexion. The hemorrhoids were mild and small. - Many medium-mouthed diverticula were found in the left colon. - Otherwise the colon was normal. There was no evidence of polyps or angiodysplasia. - The terminal ileum appeared normal. Impression: - Internal hemorrhoids. - Diverticulosis in the left colon. - Otherwise the colon was normal. There was no evidence of polyps or angiodysplasia. - The examined portion of the ileum was normal. - No specimens collected. Recommendation: - Outpatient capsule endoscopy to be arranged by GI office. - No repeat colonoscopy. - The patient will be observed post-procedure, until all discharge criteria are met. Procedure Code(s): - 28094, Colonoscopy, flexible; diagnostic, including collection of specimen(s) by brushing or washing, when performed (separate procedure) Diagnosis Code(s): - K62.5, Hemorrhage of anus and rectum - K64.8, Other hemorrhoids - K57.30, Diverticulosis of large intestine without perforation or abscess without bleeding CPT(R) - 2023 copyright [employer]. All Rights Reserved. The CPT codes, CCI edits and ICD codes generated are intended as suggestions and were generated based on input data. These codes are preliminary and upon director of in service education review may be revised to meet current compliance and payer requirements. The provider is responsible for the final determination of appropriate codes, and modifiers. Evgeny Katz M.D. , This document has been electronically signed. Note Initiated:07/06/2024 Note Completed:07/06/2024 12:36 PM \\[email or web address]\[email or web address]\Provation\Results\[email or web address]\[id number]
--- NOTE | 2024-07-06 14:35 | Anesthesiology Progress Note ---
Date of Service July 06, 2024 Anesthesia Post Procedure Vital Signs Vital Signs: Temp Pulse Pulse Resp BP BP Pulse Ox 07/06/24 13:31 36.5 C 68 16 125/62 96 07/06/24 12:59 69 18 131/49 L 97 07/06/24 12:44 70 18 132/70 98 07/06/24 12:29 76 14 120/70 99 07/06/24 10:56 37.1 C 77 20 128/65 97 07/06/24 09:38 65 07/06/24 08:53 07/06/24 07:38 36.6 C 75 17 119/69 98 07/06/24 03:57 36.8 C 84 18 126/81 96 07/05/24 23:32 36.8 C 79 18 122/73 97 07/05/24 22:35 79 07/05/24 19:02 36.6 C 74 18 135/78 96 07/05/24 17:46 36.6 C 76 18 109/67 97 07/05/24 17:01 36.5 C 75 18 100/64 98 07/05/24 16:01 37.2 C 78 18 110/72 93 07/05/24 15:31 36.9 C 72 18 100/64 97 07/05/24 15:16 36.9 C 74 18 106/62 95 07/05/24 15:16 36.9 C 74 18 106/62 95 07/05/24 15:00 36.7 C 75 18 101/47 L 98 O2 Del Method 07/06/24 13:31 Room Air 07/06/24 12:59 Room Air 07/06/24 12:44 Room Air 07/06/24 12:29 Room Air 07/06/24 10:56 Room Air 07/06/24 09:38 07/06/24 08:53 Room Air 07/06/24 07:38 Room Air 07/06/24 03:57 Room Air 07/05/24 23:32 Room Air 07/05/24 22:35 07/05/24 19:02 Room Air 07/05/24 17:46 07/05/24 17:01 07/05/24 16:01 07/05/24 15:31 07/05/24 15:16 07/05/24 15:16 11/19/24 15:00 Pain Intensity Right Groin: Pain Intensity: 1 Transfer of Care Handoff Completed per policy Notes Mental Status: alert / awake / arousable Patient Amnestic to Procedure: Yes Nausea / Vomiting: adequately controlled Pain: adequately controlled Airway Patency, RR, SpO2: stable & adequate BP & HR: stable & adequate Hydration State: stable & adequate Anesthetic Complications: no major complications apparent
[2024-07-06 14:44] LABS: Hematocrit (blood only) 27.7 % (37.0-47.0); Hemoglobin 9.2 g/dl (12.0-16.0)
[2024-07-06] MEDS: PROPOFOL IV EMULSION 10 MG/ML 20 ML VIAL IV ONE (16:51)
[2024-07-06 21:34] LABS: Hematocrit (blood only) 25.8 % (37.0-47.0); Hemoglobin 8.5 g/dl (12.0-16.0)
[2024-07-07 06:51] LABS: Hematocrit (blood only) 26.4 % (37.0-47.0); Hemoglobin 8.4 g/dl (12.0-16.0); Mean Corpuscular Hemoglobin 30.7 pg (25.0-34.0); Mean Corpuscular Hgb Conc 31.8 g/dL (32.0-36.0); Mean Corpuscular Volume 96.4 fL (80.0-100.0); Mean Platelet Volume 9.5 fL (9.4-12.4); Platelet Count 131 K/uL (130-400); RDW Coefficient of Variation 18.1 % (11.5-14.5); RDW Standard Deviation 60.7 fL (36.4-46.3); Red Blood Count 2.74 M/uL (4.20-5.40); White Blood Count 3.48 K/ul (4.8-10.8)
[2024-07-07 07:10] LABS: INR 1.6 (0.9-1.1); Prothrombin Time 16.6 Seconds (9.0-12.0)
[2024-07-07 07:17] LABS: Calcium 7.9 mg/dl (8.6-10.3); Creatinine Clr Calc Pharmacy 49.8 ml/min; Potassium 3.8 mmol/L (3.5-5.1)
--- NOTE | 2024-07-07 09:15 | Communication Note ---
Date of Service: July 07, 2024
--- NOTE | 2024-07-07 11:23 | Cardiology Progress Note ---
Date of Service July 07, 2024 Assessment & Plan (1) GI bleed: (2) Paroxysmal atrial fibrillation: (3) Nonischemic cardiomyopathy: (4) Biventricular cardiac pacemaker in situ: (5) Subdural hematoma: Plan Presentation with recurrent GI bleeding along with right-sided subconjunctival hemorrhage, periorbital ecchymosis, intermittent epistaxis. INR significantly elevated despite prior discontinuation of Coumadin anticoagulation, on Eliquis from 06/26/2024 until this admission Anticoagulates on hold since admission on 07/03/2024, INR 1.6 today Nonischemic cardiomyopathy status post biventricular pacer defibrillator implantation, compensated systolic and diastolic heart failure. History of September 2022 right atrial thrombus connected to the pacer lead, resolving on warfarin Paroxysmal atrial fibrillation Recent subdural hematoma Recommendations: Hematology consultation, ? underlying amyloidosis versus other as an explanation to the bleeding/hematologic abnormalities. Anticoagulation to remain on hold; risks and benefits discussed, notably with two indications (spontaneous thrombus on a right atrial pacemaker lead and PAF) Continue metoprolol, Entresto, amiodarone, and low dose rosuvastatin. Resume furosemide. Please contact with any questions or concerns. Admission and Anticipated Discharge Date Admission Date: July 03, 2024 Supervising Physician Co-Signing Physician Notes Attending attestation: Case reviewed with the advanced practitioner. I have personally performed a history and physical examination on the patient. I have reviewed the advanced practitioner's documentation on the date of service referenced in note, and I agree with, and take responsibility for the plan of care. Remain of anticoagulation indefinitely pending hematology evaluation. Darian Neri, DO Subjective Patient seen and examined. INR 1.6 this AM Feeling OK. Mild headache, not enough to take a Tylenol. No chest pain, palpitations, or shortness of breath Telemetry: Paced with occasional PVC's, rates 60's to 80's. Review of Systems Review of Systems: Complete Review of Systems is as stated above, negative, or noncontributory. Physical Exam Physical Exam: General: A&Ox3. NAD. HENT: Healing ecchymosis around right eye. Eyes: Improving subconjunctival hemorrhage on the right. Clear on the left. Neck: No overt JVD. Heart: Regular, paced. Systolic murmur. No rub. Lungs: Clear to auscultation. Abdomen: +BS. Extremities: Minimal edema. Results & Data Vital Signs (Past 12 Hours) Vital Signs Temp Pulse Pulse Resp BP Pulse Ox O2 Del Method 07/07/24 08:15 36.6 C 76 18 106/64 93 Room Air 07/07/24 08:00 Room Air 07/07/24 07:00 69 07/07/24 03:47 36.9 C 70 19 110/72 97 Room Air 07/07/24 00:07 36.8 C 74 19 99/63 L 95 Room Air Laboratory Results Coagulation 07/07/24 Range/Units 06:27 PT 16.6 H (9.0-12.0) Seconds CBC 07/06/24 07/06/24 07/07/24 Range/Units 14:30 21:21 06:27 WBC 3.48 L (4.8-10.8) K/ul RBC 2.74 L (4.20-5.40) M/uL Hgb 9.2 L 8.5 L 8.4 L (12.0-16.0) g/dl Hct 27.7 L 25.8 L 26.4 L (37.0-47.0) % Plt Count 131 (130-400) K/uL Comprehensive Metabolic Panel 07/07/24 Range/Units 06:27 Sodium 142 (136-145) mmol/L Potassium 3.8 (3.5-5.1) mmol/L Chloride 109 H (98-107) mmol/L Carbon Dioxide 29 (21-32) mmol/L BUN 10 (6-23) mg/dl Creatinine 0.83 (0.6-1.2) mg/dl Glucose 107 H (70-99(Fasting)) mg/dl Calcium 7.9 L (8.6-10.3) mg/dl Intake and Output 07/06/24 07/07/24 07/07/24 22:59 06:59 14:59 Intake Total 177.667 / 717.667 200 / 717.667 Balance 177.667 / 715.667 200 / 715.667 Intake: IV 177.667 / 277.667 PANTOprazole 40 mg In Dextrose 177.667 / 277.667 5% Mini-B 100 ml @ 8 MG/HR 20 mls/hr IV Q5H [facility] Rx#:[id number] Oral 200 / 440 Other: # Unmeasured Voids 2 Weight 84.5 kg Weight Measurement Method Built in [facility]
[2024-07-07 11:27] VITALS: BP 115/62; RESP 19; TEMP 97.7; O2SAT 97
[2024-07-07 15:48] VITALS: PULSE 75
--- NOTE | 2024-07-07 17:15 | Discharge Summary ---
Date of Service July 07, 2024 Admission HPI Per Admitting Provider Eduarda Bond is an 79-year-old female with a previous medical history significant for nonischemic cardiomyopathy, chronic systolic CHF, HTN, mitral valve disorder, PM w/ defibrillator, atrial thrombus, CAD, AF, Yi's esophagus, GERD, vitamin D deficiency, breast cancer s/p right mastectomy presenting to the ED with melanotic stools. Patient was admitted last month for a GI bleed and supratherapeutic INR. At that time she was on warfarin. Subsequently the patient has been started on apixaban. Over the past few days she has noticed black tarry stools. She notes that she woke up with a conjunctival hemorrhage and bruised eye on the right side today. She is also had some epistaxis. In the ED she has a markedly elevated INR and PTT. She is certain she is not taking warfarin by mistake. Patient was given vitamin K. Her EKG shows an atrial sensed rhythm. An EGD done her last admission showed two small angioectasias with no bleeding were found in the gastric body. Coagulation for bleeding prevention using argon plasma was successful. Admission Exam Per Admitting Provider General- adult elderly female seen at bedside in the ED. Her spouse is present, she appears ill Head- atraumatic Eyes- PERRL, EOMI, she has a fairly impressive conjunctival hemorrhage on the right. Negative hyphema ENT- oropharynx clear Neck- supple, no JVD, no adenopathy, no thyromegaly; carotids +2/2, no bruits appreciated Lungs- clear to auscultation and percussion Heart- regular rhythm; no murmur, no gallop, no rub appreciated Abdomen- normal bowel sounds, soft, nontender, no masses or hepatosplenomegaly Extremities- no pretibial edema, no calf tenderness; peripheral pulses intact Neuro- alert, oriented x 3; PERRL, EOMI; no focal deficit Skin- warm & dry Principal Diagnosis Anemia due to Gastrointestinal bleeding Discharge Exam Neuro: AAOx4, PERRLA, no aphagia, memory changes, CNII-XII grossly intact HEENT: R eye with conjunctival hemorrhage; two pea-sized areas of ecchymosis under R eye. head normocephalic, moist mucus membranes CV: S1/S2, (-) M/G/R, (-) edema, cap refill < 3 seconds Resp: Lungs CTA in all beltran. On RA GI: Abdomen S/NT/ND, Ax4 bowel sounds, (-) CVA tenderness Musculoskeletal: 5/5 B/L UE strength, 5/5 B/L LE strength. No gait disturbance Skin: (-) rashes , (-) erythema. (+) swelling left hand and medial aspect of upper arm; IV infiltration Psych: euthymic mood Discharge Data Allergies Allergy/AdvReac Type Severity Reaction Status Date / Time adhesive Allergy Unknown WELTS AND Verified 05/20/24 15:03 PULLS SKIN bee venom protein (honey bee) Allergy Unknown SWELLING Verified 05/20/24 15:03 Iodinated Contrast Media Allergy Unknown HIVES Verified 05/20/24 15:03 perflutren AdvReac Severe Back pain Verified 01/31/23 17:42 propylene glycol AdvReac Severe Back pain Verified 01/31/23 17:42 Consultations 07/03/24 15:04 ED Decision to Admit Stat 07/03/24 18:20 Consult Cardiology Routine Consult Gastroenterology Routine Procedures Performed Operation Date: 07/06/24 16:30 Actual Procedures p Esophagogastroduodenoscopy - Evgeny Katz MD s Colonoscopy - Evgeny Katz MD Hospital Course (1) HTN (hypertension): (2) Paroxysmal atrial fibrillation: (3) Supratherapeutic INR: (4) GI bleed: (5) GERD (gastroesophageal reflux disease): (6) Hypothyroidism: (7) Pacemaker: (8) ICD (implantable cardioverter-defibrillator) in place: (9) Atrial fibrillation: (10) Conjunctival hemorrhage of right eye: Pieter Bond is an 79-year-old female with a previous medical history significant for nonischemic cardiomyopathy, chronic systolic CHF, HTN, mitral valve disorder, PM w/ defibrillator, atrial thrombus, CAD, AF, Yi's esophagus, GERD, vitamin D deficiency, breast cancer s/p right mastectomy presenting to the ED with melanotic stools. Patient was admitted last month for a GI bleed and supratherapeutic INR. At that time she was on warfarin. Subsequently the patient has been started on apixaban. Over the past few days she has noticed black tarry stools. She notes that she woke up with a conjunctival hemorrhage and bruised eye on the right side today. She is also had some epistaxis. In the ED she has a markedly elevated INR and PTT. She is certain she is not taking warfarin by mistake. Patient was given vitamin K. Her EKG shows an atrial sensed rhythm. An EGD done her last admission showed two small angioectasias with no bleeding were found in the gastric body. Coagulation for bleeding prevention using argon plasma was successful. In the ED this admission she had heme positive stool and her INR on arrival was greater than 9 status post vitamin K administration in the ED and after she received 2U PRBC on 07/05. She was placed on a Protonix drip and evaluated by GI and cardiology. A nuclear medicine tagged red blood scan was negative on 07/05. On 07/06 an EGD and colonoscopy were performed status post prep and multiple 5 to 9 mm gastric polyps were noted without evidence of esophagitis or esophageal varices. No polyps were identified on colonoscopy however internal hemorrhoids were noted. Multiple questions were answered to patient and as to why she is on a blood thinner to begin with. Patient does have paroxysmal A-fib and has a history of a spontaneous thrombus on the right atrial lead of her pacemaker which occurred in September 2022. Additional blood work was obtained including a hepatocyte count, reticulocyte count and peripheral smear. The hepatocytes and reticulocytes were normal and the peripheral smear indicated normocytic anemia with thrombocytopenia and lymphopenia. It was recommended that she proceed with hematology follow-up as an outpatient. It was recommended that she not take any additional anticoagulation medication prior to being seen by her PCP and hematology. PCP to arrange Hematology follow up and workup Upon her discharge she was released in stable condition and her right subconjunctival hemorrhage is improving. Her hemoglobin on discharge was 8.4. I spent a total of 48 minutes coordinating, documenting, and providing care for this patient excluding time spent in the performance of separately billed services. All of the aforementioned completed while collaborating with the assigned attending physician for a full treatment plan. Please see their addendum for further details. Total Time Total Time Spent Total Time Spent (In Minutes): I spent a total of 52 minutes coordinating, documenting, and providing care for this patient excluding time spent in the performance of separately billed services. All of the aforementioned completed while collaborating with the assigned attending physician for a full treatment plan. Please see their addendum for further details. Discharge Plan Discharge Items Patient Disposition: Home - Self-Care Reason For Visit: GI BLEED Discharge Diagnosis: anemia Condition on Discharge: Good Activity: Resume your previous activity Non-emergency contact: Primary Care Provider Call non-emergency contact if: you have any medication questions, your symptoms worsen, your pain is not controlled and your temperature is above 101 Follow-up/Referrals: Carol Diane CRNP [Hospitalist] - Ruth Brandon MD [Primary Care Provider] - 07/12/24 11:00 am (Arrival time at 10:45 AM General Internal Medicine: [facility] location in [place], [place] Date & Time 07/12/2024 11:00 AM Provider Ruth Brandon MD Department General Internal Medicine [facility] Hematology will contact you to schedule follow-up visit. ) Bahman Brandon MD [Surgeon] - (The hematology office will contact you with an appointment date and time; you will need a referral from your PCP) Diet: Heart Healthy Addtl Attending Provider Instructions: Gerry Lerner were admitted to the [facility] on July 03 with symptoms of a gastrointestinal bleed, along with right-sided subconjunctival hemorrhage (bleeding around your eye), and were subsequently found to have an elevated INR. You take coumadin for your intermittent atrial fibrillation and as you had a history of a clot on your pacemaker lead in 2022. We identified that your INR blood level (how thin or thick your blood is) was elevated causing you to lose blood. You were given a medicine called Vitamin K that helps reverse bleeding. On July 05 you underwent a GIB scan with nuclear medicine which was negative for any active bleeding. You had a drop in your blood counts that required you to receive two units (bags) of blood product with positive resolution of your bleeding. You were seen by the gastroenterology specialists and it was determined that you should undergo an upper endoscopy and a lower colonoscopy which occurred on 07/06/24. The results indicated that you had internal hemorrhoids without any polyps. Numerous 5-9 mm gastric (stomach) polyps were identified without evidence of esophagitis (esophagus inflammation) or varices (abnormal veins in the lower part of the tube running from the throat to the stomach). Additional blood panels were drawn that look specifically at the composition of blood cells.Hematology tests can help diagnose and monitor a variety of conditions. It is recommended that you are seen by a supply specialist (works to identify blood disorders) after you are released from the hospital. MEDICATION CHANGES: 1. STOP taking your Eliquis until further instructions are given by your PCP or a specialist. 2. You can resume your home medications including Lasix. RECOMMENDATIONS FOR FOLLOW-UP: You will follow up with your PCP Dr. Brandon on ThursdayJuly 12 at 11:00 AM. Arrival time at 10:45 AM at the [facility] location in [place], [place] It is important that you receive a referral from Dr. Brandon at this appointment to be seen by hematology as an outpatient. OTHER INSTRUCTIONS: Seek medical attention if you have: * temperature above 101 * active bleeding * chest pain or trouble breathing * abdominal pain, nausea, vomiting * diarrhea, dark stools or bloody stools * any unanswered questions or concerns Call 911 if symptoms are severe. Please take good care of yourself. It has been a pleasure taking care of you. Please take care of yourself. If you have any questions regarding your recent hospitalization please contact [facility] and request [facility] Hospitalist @ [phone]. Pending Studies at Discharge: Yes Stand-Alone Forms: My [facility], Smoking Cessation Medications and DC Order Prescriptions: Continued levothyroxine 25 mcg Tablet 25 mcg PO QAM calcium carbonate [Calcium 500] 500 mg calcium (1,250 mg) Tablet 1,250 mg PO QAM pantoprazole 40 mg Tablet,Delayed Release (Dr/Ec) 40 mg PO BID furosemide 20 mg Tablet 20 mg PO [id number] Rx Instructions: Take 20mg by mouth on /T/W/T/F and ONLY take 20mg on S/S IF additional swelling/fluid retention pyridoxine (vitamin B6) [Vitamin B-6] 100 mg Tablet 100 mg PO QAM cholecalciferol (vitamin D3) [Vitamin D3] 2,000 unit Tablet 1,000 unit PO QAM Entresto 24-26 mg Tablet 1 tab PO BID amiodarone 200 mg tablet 100 mg PO DAILY Rx Instructions: 100 MG ONCE A DAY PER PT ON 05/20/24 rosuvastatin 10 mg tablet 10 mg PO DAILY metoprolol succinate 25 mg Tablet Extended Release 24 Hr 25 mg PO QAM Qty: 30 0RF Discontinued Eliquis 5 mg tablet 5 mg PO BID Rx Instructions: MIGHT BE OUT ON HOLD PER PT ON 07/03/24 Discharge Orders: Discharge Order (Routine); Ordered 07/07/24 Ordered By: Carol Bashir/Satinder Patient Handouts: ED Subconjunctival Hemorrhage Admission Data Admit Date/Time: 07/03/24 16:37 Attending Provider: Kirsten Hill I. Admit Provider: Luigi Craig Primary Care Provider: Ruth Brandon Other Providers: Luigi Craig; Cait Jenkins; Darian Neri Sheldon D; Irwin Peres; Trace Phillips; Jimi Rosales; Rashmi Graham; Kamryn Espinoza; Taya Palafox; Cait Hutton; Kavin Tse; Alexander Vang; Yanet Mujica; Lakshmi Vazquez; Belem Stanley; Chel Castrejon; Julien Grover; Jennifer Spears; Melissa Raymundo; Laz Gayle; Sergei Lima; Marah Anthony; Natalia Galan; Yumiko Reyes; Julia Viveros; Tammy Holloway; Cristian Carbone; Bijal Oshea; Kenyetta Spencer; Kishan Wright S; Christina Otoole; Uma Lin; Janae Natarajan; Bonnie Nagy; Marlene Rivera; Phil Ortega; Cait Lopes; Juanis Cerda Jr; Evgeny Katz; Costa Corey; Kalen Fiore; Alexandre Lindo; Lakshmi Barreto; Walt Cheatham I; Trinity Pandya; Damir Stearns Other Interventions: Discharge Summary Assessment (RN) Last Done: 07/07/24 15:46 Supervising Physician Co-Signing Physician Notes Patient seen and examined Agree with findings and plans as detailed by Carol PARRA
== END 2024-07-07 16:24 | disposition home or self-care (01) | DRG 813 ==
LOC: ED 13:03 → SUATTDRO 16:37 → 4W 16:37

== ENCOUNTER 2024-07-22 23:33 | Inpatient (IN) ==
--- NOTE | 2024-07-23 00:21 | Emergency Department Note ---
History of Present Illness General Chief complaint: Nose Bleed (Minor) Stated complaint: NOSE BLEED Time Seen by Provider: 07/22/24 23:55 History of Present Illness This is an 79-year-old female that presents to the emergency department via private vehicle with complaints of "epistaxis". She is here today accompanied by . The patient notes that earlier today she felt fine and then sneezed. She then felt some drainage at the nose and tried to blow the nose, and then noted epistaxis. No trauma. No injury. She does note that she recently was taken off of Eliquis noting recent bleeding issues. No current anticoagulant use. No dizziness or lightheadedness. She does note 4 units were transfused in the recent past noting anemia. She denies any black tarry stools. She notes hematology follow-up recently for elevated INR despite cessation of anticoagulation. Home Medications Medication Instructions Recorded Confirmed Type calcium carbonate (Calcium 500) 1,250 mg PO QAM 11/18/18 07/23/24 History cholecalciferol (vitamin D3) 50 1,000 unit PO QAM 11/18/18 07/23/24 History mcg (2,000 unit) tablet (Vitamin D3) furosemide 20 mg tablet 20 mg PO 5XWK 11/18/18 07/23/24 History levothyroxine 25 mcg tablet 25 mcg PO QAM 11/18/18 07/23/24 History pantoprazole 40 mg tablet,delayed 40 mg PO AMHS 11/18/18 07/23/24 History release pyridoxine (vitamin B6) 100 mg 100 mg PO QAM 11/18/18 07/23/24 History tablet (Vitamin B-6) sacubitril 24 mg-valsartan 26 mg 1 tab PO AMHS 11/18/18 07/23/24 History tablet (Entresto) rosuvastatin 10 mg tablet 10 mg PO QAM 12/21/23 07/23/24 History metoprolol succinate 25 mg 25 mg PO QAM #30 tabs 12/25/23 07/23/24 Rx tablet,extended release 24 hr amiodarone 200 mg tablet 100 mg PO QAM 05/20/24 07/23/24 History Allergies Allergy/AdvReac Type Severity Reaction Status Date / Time adhesive Allergy Unknown WELTS AND Verified 07/23/24 01:55 PULLS SKIN bee venom protein (honey bee) Allergy Unknown SWELLING Verified 07/23/24 01:55 Iodinated Contrast Media Allergy Unknown HIVES Verified 07/23/24 01:55 perflutren AdvReac Severe Back pain Verified 07/23/24 01:55 propylene glycol AdvReac Severe Back pain Verified 07/23/24 01:55 Past Med/Surg History Problem List (Updated 07/23/24 @ 00:21 by Oswald Telles PA-C) Epistaxis (Acute) Conjunctival hemorrhage of right eye Subdural hematoma Biventricular cardiac pacemaker in situ Melena Spontaneous intracranial hemorrhage Cardiac defibrillator in place HTN (hypertension) Paroxysmal atrial fibrillation Bruising (Acute) Elevated INR (Acute) Symptomatic anemia (Acute) Supratherapeutic INR (Acute) GI bleed (Acute) Implantable cardioverter-defibrillator generator end of life Chronic systolic heart failure GERD (gastroesophageal reflux disease) Hypothyroidism AMEZCUA (dyspnea on exertion) (Acute) Chest pain (Acute) Atrial fibrillation with rapid ventricular response (Acute) Medical History Pacemaker Breast cancer Restless leg syndrome Left bundle branch block Distal radius fracture, right Nausea and vomiting after administration of anesthetic agent Osteoarthritis Cancer of right breast 2007--sx, chemo/radiation Atrial fibrillation ICD (implantable cardioverter-defibrillator) in place 08/2017 @ [facility] Surgical History History of bilateral tubal ligation History of colonoscopy History of esophagogastroduodenoscopy (EGD) History of total mastectomy of right breast History of right breast biopsy malignant History of tooth extraction History of cardiac cath x3, no stents--last 2015? @ [facility] with Dr. Gonsalez Family History Other No family history of adverse response to anesthesia Social History Smoking Status: Never smoker Second Hand Exposure: Yes ( smoked); Do You Dip or Chew Tobacco: No; Hx Alcohol Use: No Hx Substance Use: No Preferred Language: Citizen Of [place] Communication Ability: Effective Lead Network Engineer Required: No Beliefs That Will Affect Care: None Current Living Situation: Spouse Feels Safe at Home: Yes Assistive Devices: Cane Review of Systems A total of 10 systems reviewed and were otherwise negative Physical Exam Vital Signs Vital Signs - 24 hr 07/22/24 23:33 07/22/24 23:37 07/23/24 01:33 Temperature 36.8 C Temperature Source Temporal Artery Scan Pulse Rate 78 Pulse Rate [Right Finger] 67 64 Pulse Rhythm [Right Finger] Regular Pulse Strength [Right Finger] Normal Respiratory Rate 18 16 17 Respiratory Effort / Characteristics Non-Labored Non-Labored Spontaneous Respiratory Depth Normal Normal Respiratory Pattern Regular Regular Blood Pressure 157/80 H Blood Pressure [Left Arm] 134/73 134/72 Blood Pressure Mean 105 Blood Pressure Mean [Left Arm] 93 92 Blood Pressure Position Sitting Blood Pressure Position [Left Arm] Sitting Pulse Oximetry 96 96 94 Oxygen Delivery Method Room Air Room Air Room Air Sepsis Recent Fever Within 48 Hours No Sepsis New/Unexplained Change in Mental Status N/A Sepsis Action Taken by Nursing No Action Required 07/23/24 01:42 Temperature Temperature Source Pulse Rate 67 Pulse Rate [Right Finger] Pulse Rhythm [Right Finger] Pulse Strength [Right Finger] Respiratory Rate Respiratory Effort / Characteristics Respiratory Depth Respiratory Pattern Blood Pressure Blood Pressure [Left Arm] Blood Pressure Mean Blood Pressure Mean [Left Arm] Blood Pressure Position Blood Pressure Position [Left Arm] Pulse Oximetry Oxygen Delivery Method Sepsis Recent Fever Within 48 Hours Sepsis New/Unexplained Change in Mental Status Sepsis Action Taken by Nursing VITAL SIGNS - Vital signs and nursing notes were reviewed. Hypertensive, otherwise stable and afebrile. GENERAL -79-year-old female appearing her stated age who is in no acute distress. Communicates well with provider and answers questions appropriately. SKIN - Without rashes. No meningeal or petechial rash. No ecchymosis. HEAD - NC/AT. EYES - PERRL with EOMI bilaterally. Sclera anicteric. EARS - No deformities of external structures noted on gross examination bilaterally. No hemotympanum NOSE - Midline and without cyanosis. No epistaxis or purulent drainage noted. Nasal clamp removed and there is a tiny bit of dried blood in the right naris, otherwise there is no evidence of bleeding. MOUTH/OROPHARYNX - Without perioral cyanosis. Buccal mucosa pink and moist and without leukoplakia. Tongue midline with equal elevation of palate bilaterally. No tonsillar hypertrophy, erythema, or exudates noted. Fair dentition noted. No blood in the posterior pharynx. NECK - . No nuchal rigidity. LUNGS - CTA CARDIAC - RRR EXTREMITIES - No clubbing or peripheral cyanosis. +5/5 strength noted in UE/LE bilaterally. NEUROLOGIC - Cranial nerves II through XII grossly intact. PSYCH -alert, oriented and pleasant on exam. Course Administered Medications Discontinued Medications Sodium Chloride (Sodium Chloride 0.65% Na Soln 45 Ml (Gove)) 1 sprays NA NOW ONE Stop: 07/23/24 01:07 Last Admin: 07/23/24 01:57 Dose: 1 sprays Documented By: FRANCO Medical Decision Making Laboratory Data 07/23/24 00:18 07/23/24 00:19 Lab Results 07/23/24 07/23/24 Range/Units 00:18 00:19 WBC 3.54 L (4.8-10.8) K/ul RBC 3.32 L (4.20-5.40) M/uL Hgb 10.1 L (12.0-16.0) g/dl Hct 32.5 L (37.0-47.0) % MCV 97.9 (80.0-100.0) fL MCH 30.4 (25.0-34.0) pg MCHC 31.1 L (32.0-36.0) g/dL RDW Std Deviation 64.0 H (36.4-46.3) fL RDW Coeff of Ivanna 18.1 H (11.5-14.5) % Plt Count 176 (130-400) K/uL MPV 9.0 L (9.4-12.4) fL PT > 90.0 H (9.0-12.0) Seconds INR > 9.5 H* (0.9-1.1) APTT 115 H* (21-31) Seconds PTT Ratio 4.3 Sodium 141 (136-145) mmol/L Potassium 3.9 (3.5-5.1) mmol/L Chloride 103 (98-107) mmol/L Carbon Dioxide 32 (21-32) mmol/L Anion Gap 6 (3-11) BUN 24 H (6-23) mg/dl Creatinine 1.22 H (0.6-1.2) mg/dl Est Cr Clr Drug Dosing Not Reportable eGFR 44.86 BUN/Creatinine Ratio 19.7 (10-20) Glucose 106 H (70-99(Fasting)) mg/dl Calcium 9.2 (8.6-10.3) mg/dl Total Bilirubin 0.5 (0.2-1.0) mg/dl AST 30 (13-39) U/L ALT 16 (7-52) U/L Alkaline Phosphatase 43 (34-104) U/L Total Protein 6.9 (6.0-8.3) gm/dl Albumin 3.7 (3.4-5.0) gm/dl Globulin 3.2 (2.5-4.0) gm/dl Albumin/Globulin Ratio 1.2 (0.9-2) MDM Narrative Patient was seen and evaluated as above in room C07. Review was performed of triage nursing notes and vital signs. I did review pertinent previous visits and patient history. After obtaining a thorough history and physical examination the above work up was performed. Patient presents to us today for evaluation of epistaxis. Patient noted that she sneezed earlier today, blew the nose and then developed epistaxis. She notes history of anticoagulant use previously, but none at the current time. Patient already had nasal clamp in place upon my assessment and upon removal of the clamp there was no further bleeding. No blood in the posterior pharynx. Options of care were discussed with the patient. I did obtain CBC plus INR to compare to previous noting the recent bleeding today. The patient already had nasal clamp in place at time of my assessment. The clamp was removed. No further bleeding. Posterior pharynx does not show any signs of active bleeding either. We will observe the patient here in the emergency department pending laboratory studies. Improving anemia hemoglobin of 10.1. INR unfortunately returned persistently elevated at greater than 9.5 in the setting of no anticoagulation. I did review the [facility] record, specifically the patient's recent visit with Dr. Brandon dated 07/19/2024. Labs were done at that time and the INR was noted to be similar. I did speak with Dr. Chaudhary, hematology. We agree with vitamin K at this time. Initially I did order IV however upon multiple rechecks there is no current bleeding. In discussion with the hospitalist, will utilize p.o. instead and closely trend patient symptoms. I do believe the patient would benefit from continued evaluation to ensure no further bleeding noting the patient's anemia and elevated INR. The exact etiology of the elevated INR is unclear. There is no evidence of DIC. Her liver panel does not suggest emergent issue regarding the liver. Mild elevation of creatinine 1.22 without evidence of emergent failure. She may have a factor deficiency contributing to the INR elevation. Case discussed with the hospitalist service. Please refer to further documentation regarding her stay. GCS: 15 In the evaluation and treatment of this patient the following differential diagnoses were entertained: Anterior epistaxis, posterior epistaxis, anemia, among others. Impression & Plan Epistaxis Discharge Plan Visit Data Chief Complaint: Nose Bleed (Minor) Stated Complaint: NOSE BLEED ED Provider: Timoteo Franks ED Midlevel Provider: Oswald Telles Discharge Problem: Epistaxis Patient Disposition: Admitted As Inpatient Condition: Good Forms Stand Alone Forms: [facility], Important Visit Information Prescriptions Prescriptions: No Action levothyroxine 25 mcg Tablet 25 mcg PO QAM calcium carbonate [Calcium 500] 500 mg calcium (1,250 mg) Tablet 1,250 mg PO QAM pantoprazole 40 mg Tablet,Delayed Release (Dr/Ec) 40 mg PO AMHS furosemide 20 mg Tablet 20 mg PO [id number] Rx Instructions: Take 20mg by mouth on M/T/W/T/F and ONLY take 20mg on S/S IF additional swelling/fluid retention pyridoxine (vitamin B6) [Vitamin B-6] 100 mg Tablet 100 mg PO QAM cholecalciferol (vitamin D3) [Vitamin D3] 2,000 unit Tablet 1,000 unit PO QAM sacubitril-valsartan [Entresto] 24-26 mg Tablet 1 tab PO AMHS amiodarone 200 mg tablet 100 mg PO QAM Rx Instructions: 100 MG ONCE A DAY PER PT ON 05/20/24 rosuvastatin 10 mg tablet 10 mg PO QAM metoprolol succinate 25 mg Tablet Extended Release 24 Hr 25 mg PO QAM Qty: 30 0RF Referrals Referrals: Ruth Brandon MD [Primary Care Provider] - Herber Thompson MD [Physician] -
[2024-07-23 00:33] LABS: Hematocrit (blood only) 32.5 % (37.0-47.0); Hemoglobin 10.1 g/dl (12.0-16.0); Mean Corpuscular Hemoglobin 30.4 pg (25.0-34.0); Mean Corpuscular Hgb Conc 31.1 g/dL (32.0-36.0); Mean Corpuscular Volume 97.9 fL (80.0-100.0); Platelet Count 176 K/uL (130-400); RDW Coefficient of Variation 18.1 % (11.5-14.5); Red Blood Count 3.32 M/uL (4.20-5.40); White Blood Count 3.54 K/ul (4.8-10.8)
[2024-07-23 01:20] LABS: Prothrombin Time > 90.0 Seconds (9.0-12.0)
[2024-07-23 01:21] LABS: INR > 9.5 (0.9-1.1)
[2024-07-23] MEDS: SODIUM CHLORIDE 0.65% NA SOLN 45 ML (OCEAN) ONE (01:57)
[2024-07-23 02:07] LABS: Alanine Aminotransferase 16 U/L (7-52); Albumin Globulin Ratio 1.2 (0.9-2); Albumin Level 3.7 gm/dl (3.4-5.0); Alkaline Phosphatase 43 U/L (34-104); Anion Gap 6 (3-11); Aspartate Aminotransferase 30 U/L (13-39); BUN Creatinine Ratio 19.7 (10-20); Bilirubin,Total 0.5 mg/dl (0.2-1.0); Blood Urea Nitrogen 24 mg/dl (6-23); Calcium 9.2 mg/dl (8.6-10.3); Carbon Dioxide 32 mmol/L (21-32); Chloride 103 mmol/L (98-107); Globulin 3.2 gm/dl (2.5-4.0); Glucose 106 mg/dl (70-99(Fasting)); Potassium 3.9 mmol/L (3.5-5.1); Sodium 141 mmol/L (136-145); Total Protein 6.9 gm/dl (6.0-8.3)
[2024-07-23 02:22] LABS: Partial Thromboplastin Ratio 4.3
[2024-07-23 02:27] LABS: Partial Thromboplastin Time 115 Seconds (21-31)
[2024-07-23] MEDS: PHYTONADIONE 10 MG in DEXTROSE 5% 50 ML IV ONE (03:53)
[2024-07-23] MEDS: PHYTONADIONE 5 MG TAB PO STA (04:09)
[2024-07-23] MEDS ORDERED: NITROGLYCERIN SL 0.4 MG/TAB TAB SL PRN (05:28)
[2024-07-23] MEDS ORDERED: ACETAMINOPHEN 325 MG TAB PO PRN (05:28)
[2024-07-23] MEDS ORDERED: POLYETHYLENE (MIRALAX) 17 GM PACK PO PRN (05:28)
[2024-07-23 07:42] LABS: Basophils # (auto) 0.01 K/uL (0.00-0.20); Basophils % (auto) 0.3 %; Eosinophils # (auto) 0.04 K/uL (0.00-0.50); Eosinophils % (auto) 1.2 %; Hematocrit (blood only) 29.8 % (37.0-47.0); Hemoglobin 9.4 g/dl (12.0-16.0); Immature Granulocytes # (auto) 0.01 K/uL (0.01-0.20); Immature Granulocytes % (auto) 0.3 %; Lymphocytes # (auto) 0.77 K/uL (1.20-3.40); Mean Corpuscular Hemoglobin 30.2 pg (25.0-34.0); Mean Corpuscular Hgb Conc 31.5 g/dL (32.0-36.0); Mean Corpuscular Volume 95.8 fL (80.0-100.0); Mean Platelet Volume 8.8 fL (9.4-12.4); Monocytes # (auto) 0.36 K/uL (0.11-0.59); Monocytes % (auto) 11.2 %; Neutrophils # (auto) 2.02 K/uL (1.40-6.50); Platelet Count 143 K/uL (130-400); RDW Coefficient of Variation 17.5 % (11.5-14.5); RDW Standard Deviation 60.7 fL (36.4-46.3); Red Blood Count 3.11 M/uL (4.20-5.40); White Blood Count 3.21 K/ul (4.8-10.8)
[2024-07-23 07:53] LABS: Calcium 8.7 mg/dl (8.6-10.3); Creatinine Clr Calc Pharmacy 76.5 ml/min; Magnesium 1.7 mg/dl (1.7-2.4); Potassium 3.5 mmol/L (3.5-5.1)
[2024-07-23] MEDS: PHYTONADIONE 5 MG TAB PO SCH (08:05)
[2024-07-23] MEDS: LEVOTHYROXINE SODIUM 25 MCG TABLET PO SCH (08:05)
[2024-07-23] MEDS: PYRIDOXINE HCL 50 MG TAB PO SCH (08:05)
[2024-07-23] MEDS: CHOLECALCIFEROL 25 MCG (1000 UNITS) TAB PO SCH (08:05)
[2024-07-23] MEDS: ROSUVASTATIN CALCIUM 10 MG TAB PO SCH (08:05)
[2024-07-23] MEDS: VALSARTAN/SACUBITRIL 26/24MG TAB PO SCH (08:05)
[2024-07-23] MEDS: PANTOprazole 40 MG TAB PO SCH (08:06)
[2024-07-23] MEDS: METOPROLOL SUCC 25MG EXT REL TAB PO SCH (08:06)
[2024-07-23] MEDS: AMIODARONE 200 MG TAB PO SCH (08:06)
[2024-07-23] MEDS: CALCIUM CARBONATE 1250MG TAB PO SCH (08:06)
[2024-07-23 08:22] LABS: Prothrombin Time > 90.0 Seconds (9.0-12.0)
--- NOTE | 2024-07-23 08:22 | History & Physical Report ---
Date of Service July 23, 2024 Assessment & Plan (1) Epistaxis: Plan: 79-year-old female with past medical history significant for hypothyroidism, chronic systolic and diastolic CHF, idiopathic cardiomyopathy, paroxysmal atrial fibrillation, mitral valve disorder, hypertension, presence of AICD, history of atrial thrombus, atherosclerosis of aorta, history of CAD, AVM of stomach, Yi's esophagus, GERD, restless leg syndrome, degenerative disc disease, spinal osteoporosis, history of subdural hematoma, history of acute blood loss anemia, history of breast cancer presents with epistaxis and found to have elevated INR. Patient states she is blowing her nose and started to have bleeding from right nostril which she tried to stop but was not stopping and on the way to hospital she also had bleeding from the left nostrils. In the ER the bleeding is stopped currently. Because of elevated INR we are called for admission. Patient denies any headache. No chest pain or shortness of breath. No abdominal pain. Denies any blood in the stools or black stools. No hematuria. Hemodynamics are okay. Resting comfortably. As per heme-onc notes in epic :"patient has history of atrial thrombus and paroxysmal atrial fibrillation and she was on Coumadin since early 2022. In May 2024 she admitted at [facility] for black stools. Hemoglobin was 6.4 and her platelets dropped to 110 range. PT was over 90 seconds INR was over 9.5. She was also prolonged PTT to 112 and received vitamin K 10 mg and received 4 units PRBCs and Coumadin was held. EGD showed 2 nonbleeding angiectasia in the stomach. With vitamin K PTT dropped down to 41 seconds. She complained of headaches CAT scan was done which showed trace acute subdural hemorrhage along the anterior and posterior aspect of the falx and possible subdural hemorrhage overlying the bilateral temporal lobes . She was transferred to [facility] and was treated conservatively. And she received an additional blood transfusion at [facility]. Then she followed with neuros urgery team and a repeat CAT scan on 06/02/2024 showed near complete resolution of subdural hematoma. She was started on Eliquis 5 mg twice daily on 06/26/2020 for for previous atrial thrombus and paroxysmal atrial fibrillation. And about a week later again she started to have black stools and was seen in [facility]. Again PT and PT were prolonged. GI bleed scan done which showed no suspicious findings. EGD and colonoscopy were performed which showed multiple gastric polyps without evidence of varices or esophagitis. No polyps on colonoscopy. Eliquis was discontinued since then." Patient followed with heme- onc. Mixing study, factor VII, factor VIII, factor X and fibrinogen level and thrombin time are checked. It was thought her acquired condition of prolonged PT and PTT could be liver disease or could be vitamin K deficiency. Heme-onc ordered vitamin K 5 mg once daily on 07/22/2024 and like to see her in clinic on coming July 29. Epistaxis Current resolved Received vitamin K for elevated INR Closely monitor in the hospital If recurs will consult ENT Elevated INR and PT and APTT No not on anticoagulation INR was greater than 9.5 A PTT 115, PT greater than 90 Heme-onc working up Heme-onc advised to give vitamin K daily Has follow-up appointment with heme-onc If any concern to discuss with heme-onc Chronic systolic and diastolic CHF Systolic improvement post biventricular pacemaker implantation Echo done on 05/2024 shows EF of 55 to 60% and grade 2 diastolic dysfunction Continue home Lasix and Entresto and metoprolol succinate Monitor for volume overload History of atrial fibrillation On amiodarone and metoprolol succinate Not on anticoag secondary to GI bleed History of breast cancer right side status postmastectomy chemotherapy and radiation therapy Chronic left bundle branch block Recent subdural hematoma History of GI bleed Continue Protonix Hypothyroidism On Synthroid Hypertension On Entresto metoprolol succinate and Lasix Hyperlipidemia On statin DVT prophylaxis SCDs for now Disposition Telemetry Full code Admission and Anticipated Discharge Date Admission Date: July 23, 2024 History of Present Illness Chief Complaint: Epistaxis and elevated INR Primary Care Provider: Ruth Brandon MD 79-year-old female with past medical history significant for hypothyroidism, chronic systolic and diastolic CHF, idiopathic cardiomyopathy, paroxysmal atrial fibrillation, mitral valve disorder, hypertension, presence of AICD, history of atrial thrombus, atherosclerosis of aorta, history of CAD, AVM of stomach, Yi's esophagus, GERD, restless leg syndrome, degenerative disc disease, spinal osteoporosis, history of subdural hematoma, history of acute blood loss anemia, history of breast cancer presents with epistaxis and found to have elevated INR. Patient states she is blowing her nose and started to have bleeding from right nostril which she tried to stop but was not stopping and on the way to hospital she also had bleeding from the left nostrils. In the ER the bleeding is stopped currently. Because of elevated INR we are called for admission. Patient denies any headache. No chest pain or shortness of breath. No abdominal pain. Denies any blood in the stools or black stools. No hematuria. Hemodynamics are okay. Resting comfortably. As per heme-onc notes in epic :"patient has history of atrial thrombus and paroxysmal atrial fibrillation and she was on Coumadin since early 2022. In May 2024 she admitted at [facility] for black stools. Hemoglobin was 6.4 and her platelets dropped to 110 range. PT was over 90 seconds INR was over 9.5. She was also prolonged PTT to 112 and received vitamin K 10 mg and received 4 units PRBCs and Coumadin was held. EGD showed 2 nonbleeding angiectasia in the stomach. With vitamin K PTT dropped down to 41 seconds. She complained of headaches CAT scan was done which showed trace acute subdural hemorrhage along the anterior and posterior aspect of the falx and possible subdural hemorrhage overlying the bilateral temporal lobes . She was transferred to [facility] and was treated conservatively. And she received an additional blood transfusion at [facility]. Then she followed with neurosurgery team and a repeat CAT scan on 06/02/2024 showed near complete resolution of subdural hematoma. She was started on Eliquis 5 mg twice daily on 06/26/2020 for for previous atrial thrombus and paroxysmal atrial fibrillation. And about a week later again she started to have black stools and was seen in [facility]. Again PT and PT were prolonged. GI bleed scan done which showed no suspicious findings. EGD and colonoscopy were performed which showed multiple gastric polyps without evidence of varices or esophagitis. No polyps on colonoscopy. Eliquis was discontinued since then." Patient followed with heme-onc. Mixing study, factor VII, factor VIII, factor X and fibrinogen level and thrombin time are checked. It was thought her acquired condition of prolonged PT and PTT could be liver disease or could be vitamin K deficiency. Heme-onc ordered vitamin K 5 mg once daily on 07/22/2024 and like to see her in clinic on coming July 29. Past med history. As mentioned above Past surgical history. Biopsy of deep axillary lymph node. Cardiac catheterization. Colonoscopy. Dilatation and curettaged. EGD. Ligation of the duct. Simple complete mastectomy. Thoracostomy tube. Angioplasty. Social history. . No smoking. Alcohol rarely. No drug use. Family history. Sister had breast cancer. Brother had thyroid cancer. Brother had brain cancer. Father had MO. Sister had MVP. Mother had hypertension. Allergies Allergy/AdvReac Type Severity Reaction Status Date / Time adhesive Allergy Unknown WELTS AND Verified 07/23/24 01:55 PULLS SKIN bee venom protein (honey bee) Allergy Unknown SWELLING Verified 07/23/24 01:55 Iodinated Contrast Media Allergy Unknown HIVES Verified 07/23/24 01:55 perflutren AdvReac Severe Back pain Verified 07/23/24 01:55 propylene glycol AdvReac Severe Back pain Verified 07/23/24 01:55 Home Medications Medication Instructions Recorded Confirmed Type calcium carbonate (Calcium 500) 1,250 mg PO QAM 11/18/18 07/23/24 History cholecalciferol (vitamin D3) 50 1,000 unit PO QAM 11/18/18 07/23/24 History mcg (2,000 unit) tablet (Vitamin D3) furosemide 20 mg tablet 20 mg PO 5XWK 11/18/18 07/23/24 History levothyroxine 25 mcg tablet 25 mcg PO QAM 11/18/18 07/23/24 History pantoprazole 40 mg tablet,delayed 40 mg PO AMHS 11/18/18 07/23/24 History release pyridoxine (vitamin B6) 100 mg 100 mg PO QAM 11/18/18 07/23/24 History tablet (Vitamin B-6) sacubitril 24 mg-valsartan 26 mg 1 tab PO AMHS 11/18/18 07/23/24 History tablet (Entresto) rosuvastatin 10 mg tablet 10 mg PO QAM 12/21/23 07/23/24 History metoprolol succinate 25 mg 25 mg PO QAM #30 tabs 12/25/23 07/23/24 Rx tablet,extended release 24 hr amiodarone 200 mg tablet 100 mg PO QAM 05/20/24 07/23/24 History Past Med/Surg History Problem List (Updated 07/23/24 @ 00:21 by Oswald Telles PA-C) Epistaxis (Acute) Conjunctival hemorrhage of right eye Subdural hematoma Biventricular cardiac pacemaker in situ Melena Spontaneous intracranial hemorrhage Cardiac defibrillator in place HTN (hypertension) Paroxysmal atrial fibrillation Bruising (Acute) Elevated INR (Acute) Symptomatic anemia (Acute) Supratherapeutic INR (Acute) GI bleed (Acute) Implantable cardioverter-defibrillator generator end of life Chronic systolic heart failure GERD (gastroesophageal reflux disease) Hypothyroidism AMEZCUA (dyspnea on exertion) (Acute) Chest pain (Acute) Atrial fibrillation with rapid ventricular response (Acute) Medical History Pacemaker Breast cancer Restless leg syndrome Left bundle branch block Distal radius fracture, right Nausea and vomiting after administration of anesthetic agent Osteoarthritis Cancer of right breast 2007--sx, chemo/radiation Atrial fibrillation ICD (implantable cardioverter-defibrillator) in place 08/2017 @ [facility] Surgical History History of bilateral tubal ligation History of colonoscopy History of esophagogastroduodenoscopy (EGD) History of total mastectomy of right breast History of right breast biopsy malignant History of tooth extraction History of cardiac cath x3, no stents--last 2015? @ [facility] with Dr. Gonsalez Family History Other No family history of adverse response to anesthesia Social History Smoking Status: Never smoker Second Hand Exposure: No; Do You Dip or Chew Tobacco: No; Tobacco Cessation Education Requested by Patient: No Hx Alcohol Use: No Hx Substance Use: No Preferred Language: Filipino Communication Ability: Effective Yoke Setter Required: No Beliefs That Will Affect Care: None Current Living Situation: Spouse Other Information That Helps Us Care for You: No Feels Safe at Home: Yes Safety Concerns: Feels Safe At This Time Assistive Devices: Cane, Glasses and Hearing Aid - Left Review of Systems Review of Systems: All systems reviewed & are unremarkable except as noted in HPI & below Physical Exam Physical Exam: General- Not in distress Head- atraumatic Eyes- PERRL. ENT- oropharynx clear Neck- supple, no JVD. Lungs- clear to auscultation no wheezing or crackles Heart- regular rhythm; no murmur, no gallop. Abdomen- normal bowel sounds, soft, nontender, no distension Extremities- no pretibial edema, no erythema seen Neuro- alert, oriented PERRL, no facial palsy; no dysarthria; moves extremities Results & Data Results & Data Vital Signs (Past 12 Hours) Vital Signs Temp Pulse Pulse Resp BP BP Pulse Ox 07/23/24 07:40 36.8 C 64 18 147/82 H 98 07/23/24 05:34 07/23/24 05:34 36.8 C 68 18 123/70 99 07/23/24 05:17 19 98 07/23/24 04:10 69 21 140/95 98 07/23/24 01:42 67 07/23/24 01:33 64 17 134/72 94 07/22/24 23:37 36.8 C 78 16 157/80 H 96 07/22/24 23:33 67 18 134/73 96 O2 Del Method O2 Flow Rate 07/23/24 07:40 Room Air 07/23/24 05:34 Nasal Cannula 2 07/23/24 05:34 Nasal Cannula 2 07/23/24 05:17 Nasal Cannula 2 07/23/24 04:10 Nasal Cannula 2 07/23/24 01:42 07/23/24 01:33 Room Air 07/22/24 23:37 Room Air 07/22/24 23:33 Room Air Diagnostic Findings Laboratory Results WBC 3.21 K/ul (4.8-10.8) L 07/23/24 07:08 RBC 3.11 M/uL (4.20-5.40) L 07/23/24 07:08 Hgb 9.4 g/dl (12.0-16.0) L 07/23/24 07:08 Hct 29.8 % (37.0-47.0) L 07/23/24 07:08 MCV 95.8 fL (80.0-100.0) 07/23/24 07:08 MCH 30.2 pg (25.0-34.0) 07/23/24 07:08 MCHC 31.5 g/dL (32.0-36.0) L 07/23/24 07:08 RDW Std Deviation 60.7 fL (36.4-46.3) H 07/23/24 07:08 RDW Coeff of Ivanna 17.5 % (11.5-14.5) H 07/23/24 07:08 Plt Count 143 K/uL (130-400) 07/23/24 07:08 MPV 8.8 fL (9.4-12.4) L 07/23/24 07:08 Immature Gran % (Auto) 0.3 % 07/23/24 07:08 Neut % (Auto) 63.0 % 07/23/24 07:08 Lymph % (Auto) 24.0 % 07/23/24 07:08 [place] % (Auto) 11.2 % 07/23/24 07:08 Eos % (Auto) 1.2 % 07/23/24 07:08 Baso % (Auto) 0.3 % 07/23/24 07:08 Neut # (Auto) 2.02 K/uL (1.40-6.50) 07/23/24 07:08 Lymph # (Auto) 0.77 K/uL (1.20-3.40) L 07/23/24 07:08 [place] # (Auto) 0.36 K/uL (0.11-0.59) 07/23/24 07:08 Eos # (Auto) 0.04 K/uL (0.00-0.50) 07/23/24 07:08 Baso # (Auto) 0.01 K/uL (0.00-0.20) 07/23/24 07:08 Immature Gran # (Auto) 0.01 K/uL (0.01-0.20) 07/23/24 07:08 PT > 90.0 Seconds (9.0-12.0) H 07/23/24 07:08 INR > 9.5 (0.9-1.1) H* 07/23/24 07:08 APTT 115 Seconds (21-31) H* 07/23/24 00:18 PTT Ratio 4.3 07/23/24 00:18 Sodium 140 mmol/L (136-145) 07/23/24 07:08 Potassium 3.5 mmol/L (3.5-5.1) 07/23/24 07:08 Chloride 104 mmol/L (98-107) 07/23/24 07:08 Carbon Dioxide 30 mmol/L (21-32) 07/23/24 07:08 Anion Gap 6 (3-11) 07/23/24 07:08 BUN 20 mg/dl (6-23) 07/23/24 07:08 Creatinine 0.91 mg/dl (0.6-1.2) D 07/23/24 07:08 Est Cr Clr Drug Dosing 76.5 ml/min 07/23/24 07:08 eGFR 63.78 07/23/24 07:08 BUN/Creatinine Ratio 22.0 (10-20) H 07/23/24 07:08 Glucose 104 mg/dl (70-99(Fasting)) H 07/23/24 07:08 Calcium 8.7 mg/dl (8.6-10.3) 07/23/24 07:08 Magnesium 1.7 mg/dl (1.7-2.4) 07/23/24 07:08 Total Bilirubin 0.5 mg/dl (0.2-1.0) 07/23/24 00:19 AST 30 U/L (13-39) 07/23/24 00:19 ALT 16 U/L (7-52) 07/23/24 00:19 Alkaline Phosphatase 43 U/L (34-104) 07/23/24 00:19 Total Protein 6.9 gm/dl (6.0-8.3) 07/23/24 00:19 Albumin 3.7 gm/dl (3.4-5.0) 07/23/24 00:19 Globulin 3.2 gm/dl (2.5-4.0) 07/23/24 00:19 Albumin/Globulin Ratio 1.2 (0.9-2) 07/23/24 00:19 Code Status & VTE Plan VTE Prophylaxis Plan VTE Prophylaxis will be ordered: Yes
[2024-07-23 08:25] LABS: INR > 9.5 (0.9-1.1)
--- NOTE | 2024-07-23 13:30 | Hospitalist Progress Note ---
Date of Service July 23, 2024 Assessment & Plan (1) Epistaxis: Plan: 79-year-old female with past medical history significant for hypothyroidism, chronic systolic and diastolic CHF, idiopathic cardiomyopathy, paroxysmal atrial fibrillation, mitral valve disorder, hypertension, presence of AICD, history of atrial thrombus, atherosclerosis of aorta, history of CAD, AVM of stomach, Yi's esophagus, GERD, restless leg syndrome, degenerative disc disease, spinal osteoporosis, history of subdural hematoma, history of acute blood loss anemia, history of breast cancer presents with epistaxis and found to have elevated INR. Patient states she is blowing her nose and started to have bleeding from right nostril which she tried to stop but was not stopping and on the way to hospital she also had bleeding from the left nostrils. In the ER the bleeding is stopped currently. Because of elevated INR we are called for admission. Patient denies any headache. No chest pain or shortness of breath. No abdominal pain. Denies any blood in the stools or black stools. No hematuria. Hemodynamics are okay. Resting comfortably. As per heme-onc notes in epic :"patient has history of atrial thrombus and paroxysmal atrial fibrillation and she was on Coumadin since early 2022. In May [address] [facility] for black stools. Hemoglobin was 6.4 and her platelets dropped to 110 range. PT was over 90 seconds INR was over 9.5. She was also prolonged PTT to 112 and received vitamin K 10 mg and received 4 units PRBCs and Coumadin was held. EGD showed 2 nonbleeding angiectasia in the stomach. With vitamin K PTT dropped down to 41 seconds. She complained of headaches CAT scan was done which showed trace acute subdural hemorrhage along the anterior and posterior aspect of the falx and possible subdural hemorrhage overlying the bilateral temporal lobes . She was transferred to [facility] and was treated conservatively. And she received an additional blood transfusion at [facility]. Then she followed with neuros urgery team and a repeat CAT scan on 06/02/2024 showed near complete resolution of subdural hematoma. She was started on Eliquis 5 mg twice daily on 06/26/2020 for for previous atrial thrombus and paroxysmal atrial fibrillation. And about a week later again she started to have black stools and was seen in [facility]. Again PT and PT were prolonged. GI bleed scan done which showed no suspicious findings. EGD and colonoscopy were performed which showed multiple gastric polyps without evidence of varices or esophagitis. No polyps on colonoscopy. Eliquis was discontinued since then." Patient followed with horacio reich. Mixing study, factor VII, factor VIII, factor X and fibrinogen level and thrombin time are checked. It was thought her acquired condition of prolonged PT and PTT could be liver disease or could be vitamin K deficiency. Horacioonc ordered vitamin K 5 mg once daily on 07/22/2024 and like to see her in clinic on coming July 29. Epistaxis Spontaneous epistaxis and resolved in the emergency room following minimal maneuver No evidence of bleeding from any other sites Hemoglobin remains stable and no more epistaxis since admission Will monitor H&H and observe in hospital Not on any anticoagulation due to GI bleed and also subarachnoid hemorrhage in the past Elevated INR and PT and APTT No not on anticoagulation INR was greater than 9.5 A PTT 115, PT greater than 90 Rosalina-onc working up-advised to have vitamin K daily and follow-up with dorian on Thursday Has been receiving vitamin K 5 mg daily from 07/22/2024 INR still remains elevated at more than 9 with increased APTT LFTs are otherwise normal Will monitor INR and LFTsif INR improves/improving she will be discharged tomorrow Chronic systolic and diastolic CHF Systolic improvement post biventricular pacemaker implantation Echo done on 05/2024 shows EF of 55 to 60% and grade 2 diastolic dysfunction Continue home Lasix and Entresto and metoprolol succinate Does not have any signs and or symptoms of fluid overload History of atrial fibrillation On amiodarone and metoprolol succinate Not on anticoag secondary to GI bleed History of breast cancer right side status postmastectomy chemotherapy and radiation therapy Chronic left bundle branch block Recent subdural hematoma History of GI bleed Continue Protonix Hypothyroidism On Synthroid Hypertension On Entresto metoprolol succinate and Lasix Hyperlipidemia On statin DVT prophylaxis SCDs for now Disposition Telemetry Full code Admission and Anticipated Discharge Date Admission Date: July 23, 2024 Subjective 07/23/2024 The patient was seen and examined in medical telemetry unit in presence of the She was admitted with nosebleed that stopped in the emergency room following conservative management She was noted to have an high INR and high APTT even though she is not on any anticoagulation Received vitamin K in the emergency room but INR remains elevated today at more than 9 She denies any symptoms Review of Systems Review of Systems: All systems reviewed and are unremarkable except as noted below Physical Exam Physical Exam: Lying in bed without any acute distress Constitutional: well developed, well nourished and + obese; not ill appearing Eyes: PERRL, conjunctivae normal, anicteric sclerae ENMT: external ear and nose normal, oropharynx normal Neck: trachea midline, no thyromegaly Respiratory: no respiratory distress Auscultation: lungs clear to auscultation bilaterally Cardiovascular: Rate/Rhythm: regular rate and regular rhythm; not tachycardic Heart Sounds: normal S1, normal S2 and + murmur (2/6 ESM over precordium) Extremities: + edema (Trace edema bilaterally) Musculoskeletal: No acute arthritis involving any of the joint Neurologic: normal touch/pain/proprioception and moves all extremities; no focal motor deficits Psychiatric: A+Ox3, euthymic affect Lymphatic: no cervical or axillary lymphadenopathy Results & Data Results & Data Vital Signs (Past 12 Hours) Vital Signs Temp Pulse Pulse Resp BP Pulse Ox O2 Del Method 07/23/24 11:29 Nasal Cannula 07/23/24 11:05 36.8 C 63 18 115/70 98 Room Air 07/23/24 07:40 36.8 C 64 18 147/82 H 98 Room Air 07/23/24 05:53 68 07/23/24 05:34 Nasal Cannula 07/23/24 05:34 36.8 C 68 18 123/70 99 Nasal Cannula 07/23/24 05:17 19 98 Nasal Cannula 07/23/24 04:10 69 21 140/95 98 Nasal Cannula 07/23/24 01:42 67 07/23/24 01:33 64 17 134/72 94 Room Air O2 Flow Rate 07/23/24 11:29 2 07/23/24 11:05 07/23/24 07:40 07/23/24 05:53 07/23/24 05:34 2 07/23/24 05:34 2 07/23/24 05:17 2 07/23/24 04:10 2 07/23/24 01:42 07/23/24 01:33 Laboratory Results Short CBC 07/23/24 07/23/24 Range/Units 00:18 07:08 WBC 3.54 L 3.21 L (4.8-10.8) K/ul Hgb 10.1 L 9.4 L (12.0-16.0) g/dl Hct 32.5 L 29.8 L (37.0-47.0) % Plt Count 176 143 (130-400) K/uL BMP 07/23/24 07/23/24 00:19 07:08 Sodium 141 140 Potassium 3.9 3.5 Chloride 103 104 Carbon Dioxide 32 30 BUN 24 H 20 Creatinine 1.22 H 0.91 D Glucose 106 H 104 H Calcium 9.2 8.7 Liver Function 07/23/24 Range/Units 00:19 Total Bilirubin 0.5 (0.2-1.0) mg/dl AST 30 (13-39) U/L ALT 16 (7-52) U/L Alkaline Phosphatase 43 (34-104) U/L Albumin 3.7 (3.4-5.0) gm/dl Medications Administered Current Inpatient Medications Acetaminophen (Acetaminophen 325 Mg Tab) 650 mg PO Q4H PRN PRN Reason: Pain or Fever Stop: 08/22/24 05:27 Amiodarone HCl (Am[facility]arone 200 Mg Tab) [facility] Stop: 08/22/24 08:59 Last Admin: 07/23/24 08:06 Dose: 100 mg Calcium Carbonate (Calcium Carbonate 1250mg Tab) 1 tab PO QAM [facility] Stop: 08/22/24 08:59 Last Admin: 07/23/24 08:06 Dose: 1 tab Furosemide (Furosemide 20 Mg Tab) 20 mg PO [id number] [facility] Stop: 08/24/24 08:59 Levothyroxine Sodium (Levothyroxine Sodium 25 Mcg Tablet) 25 mcg PO DAILYBB [facility] Stop: 08/22/24 06:29 Last Admin: 07/23/24 08:05 Dose: 25 mcg Metoprolol Succinate (Metoprolol Succ 25mg Ext Rel Tab) [facility] Stop: 08/22/24 08:59 Last Admin: 07/23/24 08:06 Dose: 25 mg Nitroglycerin (Nitroglycerin Sl 0.4 Mg/Tab Tab) 0.4 mg SL Q5M PRN PRN Reason: Chest Pain Stop: 08/22/24 05:27 Pantoprazole Sodium (Pantoprazole 40 Mg Tab) 40 mg PO BID [facility] Stop: 08/22/24 08:59 Last Admin: 07/23/24 08:06 Dose: 40 mg Phytonadione (Phytonadione 5 Mg Tab) 5 mg PO DAILY [facility]; Protocol Stop: 08/22/24 08:59 Last Admin: 07/23/24 08:05 Dose: 5 mg Polyethylene Glycol (Polyethylene (Miralax) 17 Gm Pack) 17 gm PO DAILY PRN PRN Reason: Constipation Stop: 08/22/24 05:27 Pyridoxine HCl (Pyridoxine Hcl 50 Mg Tab) 100 mg PO [facility] Stop: 08/22/24 08:59 Last Admin: 07/23/24 08:05 Dose: 100 mg Rosuvastatin Calcium (Rosuvastatin Calcium 10 Mg Tab) 10 mg PO [facility] Stop: 08/22/24 08:59 Last Admin: 07/23/24 08:05 Dose: 10 mg Sacubitril/Valsartan (Valsartan/Sacubitril 26/24mg Tab) 1 tab PO BID [facility] Stop: 08/22/24 08:59 Last Admin: 07/23/24 08:05 Dose: 1 tab Vitamin D (Cholecalciferol 25 Mcg (1000 Units) Tab) 25 mcg PO QAM [facility] Stop: 08/22/24 08:59 Last Admin: 07/23/24 08:05 Dose: 25 mcg
[2024-07-24 05:17] LABS: Basophils # (auto) 0.01 K/uL (0.00-0.20); Basophils % (auto) 0.2 %; Eosinophils # (auto) 0.03 K/uL (0.00-0.50); Eosinophils % (auto) 0.7 %; Hematocrit (blood only) 29.4 % (37.0-47.0); Hemoglobin 9.2 g/dl (12.0-16.0); Immature Granulocytes # (auto) 0.01 K/uL (0.01-0.20); Immature Granulocytes % (auto) 0.2 %; Lymphocytes # (auto) 0.75 K/uL (1.20-3.40); Lymphocytes % (auto) 18.4 %; Mean Corpuscular Hemoglobin 30.5 pg (25.0-34.0); Mean Corpuscular Hgb Conc 31.3 g/dL (32.0-36.0); Mean Corpuscular Volume 97.4 fL (80.0-100.0); Mean Platelet Volume 9.2 fL (9.4-12.4); Monocytes # (auto) 0.43 K/uL (0.11-0.59); Monocytes % (auto) 10.5 %; Neutrophils # (auto) 2.85 K/uL (1.40-6.50); Platelet Count 154 K/uL (130-400); RDW Coefficient of Variation 17.4 % (11.5-14.5); RDW Standard Deviation 61.5 fL (36.4-46.3); Red Blood Count 3.02 M/uL (4.20-5.40); White Blood Count 4.08 K/ul (4.8-10.8)
[2024-07-24 05:18] LABS: Albumin Level 3.4 gm/dl (3.4-5.0); Bilirubin Direct 0.1 mg/dl (0-0.2); Bilirubin,Total 0.7 mg/dl (0.2-1.0); Calcium 8.5 mg/dl (8.6-10.3); Potassium 4.1 mmol/L (3.5-5.1)
[2024-07-24 05:24] LABS: BUN Creatinine Ratio 16.3 (10-20); Creatinine Clr Calc Pharmacy 80.9 ml/min
[2024-07-24 06:15] LABS: Fibrinogen 447 mg/dl (184-400); INR 5.3 (0.9-1.1); Partial Thromboplastin Ratio 2.8; Partial Thromboplastin Time 74 Seconds (21-31); Prothrombin Time 49.2 Seconds (9.0-12.0)
[2024-07-24 11:11] VITALS: BP 118/69; PULSE 73; RESP 18; TEMP 98.2; O2SAT 94
--- NOTE | 2024-07-24 11:42 | Hospitalist Progress Note ---
Date of Service July 24, 2024 Assessment & Plan (1) Epistaxis: Plan: 79-year-old female with past medical history significant for hypothyroidism, chronic systolic and diastolic CHF, idiopathic cardiomyopathy, paroxysmal atrial fibrillation, mitral valve disorder, hypertension, presence of AICD, history of atrial thrombus, atherosclerosis of aorta, history of CAD, AVM of stomach, Yi's esophagus, GERD, restless leg syndrome, degenerative disc disease, spinal osteoporosis, history of subdural hematoma, history of acute blood loss anemia, history of breast cancer presents with epistaxis and found to have elevated INR. Patient states she is blowing her nose and started to have bleeding from right nostril which she tried to stop but was not stopping and on the way to hospital she also had bleeding from the left nostrils. In the ER the bleeding is stopped currently. Because of elevated INR we are called for admission. Patient denies any headache. No chest pain or shortness of breath. No abdominal pain. Denies any blood in the stools or black stools. No hematuria. Hemodynamics are okay. Resting comfortably. As per heme-onc notes in epic :"patient has history of atrial thrombus and paroxysmal atrial fibrillation and she was on Coumadin since early 2022. In May 2024 she admitted at [facility] for black stools. Hemoglobin was 6.4 and her platelets dropped to 110 range. PT was over 90 seconds INR was over 9.5. She was also prolonged PTT to 112 and received vitamin K 10 mg and received 4 units PRBCs and Coumadin was held. EGD showed 2 nonbleeding angiectasia in the stomach. With vitamin K PTT dropped down to 41 seconds. She complained of headaches CAT scan was done which showed trace acute subdural hemorrhage along the anterior and posterior aspect of the falx and possible subdural hemorrhage overlying the bilateral temporal lobes . She was transferred to [facility] and was treated conservatively. And she received an additional blood transfusion at [facility]. Then she followed with neuros urgery team and a repeat CAT scan on 06/02/2024 showed near complete resolution of subdural hematoma. She was started on Eliquis 5 mg twice daily on 06/26/2020 for for previous atrial thrombus and paroxysmal atrial fibrillation. And about a week later again she started to have black stools and was seen in [facility]. Again PT and PT were prolonged. GI bleed scan done which showed no suspicious findings. EGD and colonoscopy were performed which showed multiple gastric polyps without evidence of varices or esophagitis. No polyps on colonoscopy. Eliquis was discontinued since then." Patient followed with deni reich. Mixing study, factor VII, factor VIII, factor X and fibrinogen level and thrombin time are checked. It was thought her acquired condition of prolonged PT and PTT could be liver disease or could be vitamin K deficiency. Rosalina-onc ordered vitamin K 5 mg once daily on 07/22/2024 and like to see her in clinic on coming July 29. Epistaxis Spontaneous epistaxis and resolved in the emergency room following minimal maneuver No evidence of bleeding from any other sites Hemoglobin remains stable and no more epistaxis since admission Will monitor H&H and observe in hospital Not on any anticoagulation due to GI bleed and also subarachnoid hemorrhage in the past No more epistaxis since admission and the hemoglobin remains stable Elevated INR and PT and APTT No not on anticoagulation INR was greater than 9.5 A PTT 115, PT greater than 90 Heme-onc working up-advised to have vitamin K daily and follow-up with dorian on Thursday Has been receiving vitamin K 5 mg daily from 07/22/2024 INR still remains elevated at more than 9 with increased APTT LFTs are otherwise normal Will monitor INR and LFTsif INR improves/improving she will be discharged tomorrow INR has improved to 5.3 and APTT has improved to 74 She will be discharged on vitamin K 2.5 mg daily and PT/INR will be checked as an outpatient on Thursday She was advised to keep appointment with the ecosystem ecology professor on Thursday Chronic systolic and diastolic CHF Systolic improvement post biventricular pacemaker implantation Echo done on 05/2024 shows EF of 55 to 60% and grade 2 diastolic dysfunction Continue home Lasix and Entresto and metoprolol succinate Does not have any signs and or symptoms of fluid overload History of atrial fibrillation On amiodarone and metoprolol succinate Not on anticoag secondary to GI bleed History of breast cancer right side status postmastectomy chemotherapy and radiation therapy Chronic left bundle branch block Recent subdural hematoma History of GI bleed Continue Protonix Hypothyroidism On Synthroid Hypertension On Entresto metoprolol succinate and Lasix Hyperlipidemia On statin DVT prophylaxis SCDs for now Disposition Telemetry Full code Admission and Anticipated Discharge Date Admission Date: July 23, 2024 Subjective 07/23/2024 The patient was seen and examined in medical telemetry unit in presence of the She was admitted with nosebleed that stopped in the emergency room following conservative management She was noted to have an high INR and high APTT even though she is not on any anticoagulation Received vitamin K in the emergency room but INR remains elevated today at more than 9 She denies any symptoms 07/24/2024 The patient was seen and examined in medical telemetry unit She has been complaining of some nonspecific pain in the left mid quadrant without any nausea and/or vomiting or diarrhea She did not have any more epistaxis since admission Review of Systems Review of Systems: All systems reviewed and are unremarkable except as noted below Physical Exam Physical Exam: Lying in bed without any acute distress Constitutional: well developed, well nourished and + obese; not ill appearing Eyes: PERRL, conjunctivae normal, anicteric sclerae ENMT: external ear and nose normal, oropharynx normal Neck: trachea midline, no thyromegaly Respiratory: no respiratory distress Auscultation: lungs clear to auscultation bilaterally Cardiovascular: Rate/Rhythm: regular rate and regular rhythm; not tachycardic Heart Sounds: normal S1, normal S2 and + murmur (2/6 ESM over precordium) Extremities: + edema (Trace edema bilaterally) Gastrointestinal (Abdomen): Inspection/Auscultation: normal bowel sounds; abdomen not distended Percussion/Palpation: + abdomen tender ( minimally tender in the left mid quadrant) and abdomen soft Musculoskeletal: No acute arthritis involving any of the joint Neurologic: normal touch/pain/proprioception and moves all extremities; no focal motor deficits Psychiatric: A+Ox3, euthymic affect Lymphatic: no cervical or axillary lymphadenopathy Results & Data Results & Data Vital Signs (Past 12 Hours) Vital Signs Temp Pulse Pulse Resp BP Pulse Ox O2 Del Method 07/24/24 11:10 36.8 C 73 18 118/69 94 Room Air 07/24/24 07:33 37.0 C 72 16 113/61 92 Room Air 07/24/24 05:45 70 07/24/24 03:06 36.9 C 72 16 108/58 L 94 Room Air 07/24/24 00:21 69 Laboratory Results Short CBC 07/24/24 Range/Units 04:43 WBC 4.08 L (4.8-10.8) K/ul Hgb 9.2 L (12.0-16.0) g/dl Hct 29.4 L (37.0-47.0) % Plt Count 154 (130-400) K/uL BMP 07/24/24 04:43 Sodium 138 Potassium 4.1 Chloride 105 Carbon Dioxide 28 BUN 14 Creatinine 0.86 Glucose 110 H Calcium 8.5 L Liver Function 07/24/24 Range/Units 04:43 Total Bilirubin 0.7 (0.2-1.0) mg/dl Direct Bilirubin 0.1 (0-0.2) mg/dl AST 22 (13-39) U/L ALT 12 (7-52) U/L Alkaline Phosphatase 39 (34-104) U/L Albumin 3.4 (3.4-5.0) gm/dl Medications Administered Current Inpatient Medications Acetaminophen (Acetaminophen 325 Mg Tab) 650 mg PO Q4H PRN PRN Reason: Pain or Fever Stop: 08/22/24 05:27 Amiodarone HCl (Am[facility]arone 200 Mg Tab) [facility] [place]: 08/22/24 08:59 Last Admin: 07/24/24 08:44 Dose: 100 mg Calcium Carbonate (Calcium Carbonate 1250mg Tab) 1 [facility] [place]: 08/22/24 08:59 Last Admin: 07/24/24 08:44 Dose: 1 tab Furosemide (Furosemide 20 Mg Tab) 20 mg PO [id number] [facility] Stop: 08/24/24 08:59 Levothyroxine Sodium (Levothyroxine Sodium 25 Mcg Tablet) 25 mcg PO DAILYBB [facility] Stop: 08/22/24 06:29 Last Admin: 07/24/24 05:51 Dose: 25 mcg Metoprolol Succinate (Metoprolol Succ 25mg Ext Rel Tab) 25 mg PO QAM [facility] Stop: 08/22/24 08:59 Last Admin: 07/24/24 08:44 Dose: 25 mg Nitroglycerin (Nitroglycerin Sl 0.4 Mg/Tab Tab) 0.4 mg SL Q5M PRN PRN Reason: Chest Pain Stop: 08/22/24 05:27 Pantoprazole Sodium (Pantoprazole 40 Mg Tab) 40 mg PO BID [facility] Stop: 08/22/24 08:59 Last Admin: 07/24/24 08:43 Dose: 40 mg Phytonadione (Phytonadione 5 Mg Tab) 5 mg PO DAILY [facility]; Protocol Stop: 08/22/24 08:59 Last Admin: 07/24/24 08:43 Dose: 5 mg Polyethylene Glycol (Polyethylene (Miralax) 17 Gm Pack) 17 gm PO DAILY PRN PRN Reason: Constipation Stop: 08/22/24 05:27 Pyridoxine HCl (Pyridoxine Hcl 50 Mg Tab) 100 mg PO [facility] Stop: 08/22/24 08:59 Last Admin: 07/24/24 08:43 Dose: 100 mg Rosuvastatin Calcium (Rosuvastatin Calcium 10 Mg Tab) [facility] [place]: 08/22/24 08:59 Last Admin: 07/24/24 08:44 Dose: 10 mg Sacubitril/Valsartan (Valsartan/Sacubitril 26/24mg Tab) 1 tab PO BID [facility] Stop: 08/22/24 08:59 Last Admin: 07/24/24 08:42 Dose: 1 tab Vitamin D (Cholecalciferol 25 Mcg (1000 Units) Tab) 25 [facility]cg [facility] [place]: 08/22/24 08:59 Last Admin: 07/24/24 08:45 Dose: 25 mcg
--- OUTSIDE RECORDS SUMMARY | 2024-07-24 23:48 | External Medical Summary | Summary of Care ---
Author Name Unknown Organization [facility] Address [address] [place] [address] Phone [phone] Care Team Providers Care Frothing Machine Operator Name Role Phone Ruth Brandon MD Primary Care Provider + Reason for Visit * Reason Onset Date Comments Outpatient Testing 07/19/2024 Encounter Details Date Type Department Care Team (Late st Contact Info) Description 07/19/2024 Telephone Hematology/Oncology Treatment, [place] [address] [place] [address] Bahman Brandon MD [address] [place] [address] Outpatient Testing Allergies Active Allergy Reactions Criticality Noted Date Comments Adhesive Tape Other (Please comment) 01/24/2008 Welts, blisters Bee Stings 02/14/2003 Bee Venom Hives 10/17/2019 Iodine Hives 10/17/2019 Ivp Dye 01/10/1998 hives documented as of this encounter (statuses as of 07/22/2024) Medications VITAMIN B-6 100 MG PO TABS Take [...] appointment 4 Capsule 6 02/27/20 23 Active Triamcinolone Acetonide 0.1 % External Cream (Aristocort)Indica tions:Skin neoplasm,Pruritus Apply to areas of itchy rash on back, arms, and neck twice daily 450 g 5 07/27/20 23 Active Entresto 24-26 MG Oral Tablet (sacubitril-valsar silveira 24-26 mg per tab)Indications:Id iopathic cardiomyopathy (HCC),Chronic systolic congestive heart failure, NYHA class 2 (HCC) TAKE ONE TABLET BY MOUTH TWICE A DAY 200 Tablet 3 07/02/2024 1:47 PM EST 08/12/20 23 024 Active Metoprolol Succinate ER 25 MG Oral Tablet Extended Release 24 Hour (toPROL XL)Indications:Idi opathic cardiomyopathy (HCC),Chronic systolic congestive heart failure, NYHA class 2 (HCC),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) Take 1 Tablet by mouth in the morning. 100 Tablet 3 04/23/2024 1:14 PM EDT 01/01/20 24 Active Levothyroxine Sodium 25 MCG Oral Tablet (Levoxyl)Indicatio ns:Other specified hypothyroidism TAKE ONE TABLET BY MOUTH DAILY AT LEAST 30 MINUTES PRIOR TO FIRST MEAL OF THE DAY OR OTHER MEDICATIONS 100 Tablet 2 07/19/2024 6:01 PM EST 01/04/20 24 Active Amiodarone HCl 200 MG Oral Tablet (Cordarone) Take one-half Tablet by mouth in the morning. 50 Tablet 3 07/22/2024 12:42 PM EST 05/12/20 24 Active Pantoprazole Sodium 40 MG Oral Tablet Delayed Release (Protonix) Take 1 Tablet by mouth in the morning and 1 Tablet before bedtime. 60 Tablet 05/25/2024 1:47 PM EDT 05/24/20 24 Active traZODone HCl 50 MG Oral Tablet (Desyrel)Indicatio ns:Insomnia, unspecified type Take 1 Tablet by mouth at bedtime. 30 Tablet 3 05/30/20 24 Active Additional Information Patient not taking.Reported on 07/12/2024 Apixaban 5 MG Oral Tablet (Eliquis) Take 1 Tablet by mouth in the morning and 1 Tablet before bedtime. 180 Tablet 3 06/15/2024 3:46 PM EDT 06/14/20 Active Additional Information Patient not taking.Reported on 07/12/2024 Rosuvastatin Calcium 10 MG Oral Tablet (Crestor)Indicatio ns: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) TAKE ONE TABLET BY MOUTH EVERY DAY IN THE MORNING 90 Tablet 3 06/16/20 24 025 Active Furosemide 20 MG Oral Tablet (Lasix)Indications :Hypothyroidism,Id iopathic cardiomyopathy (HCC),Presence of automatic cardioverter/defib rillator (AICD) TAKE ONE TABLET BY MOUTH EVERY DAY 5 DAYS PER WEEK, WITH AN EXTRA TABLET ON ALTERNATIVE DAYS IF NEEDED 90 Tablet 3 07/19/2024 2:07 PM EST 07/18/20 Active documented as of this encounter (statuses as of 07/22/2024) Active Problems Problem Noted Date Diagnosed Date SDH (subdural hematoma) 05/25/2024 PAF (paroxysmal atrial fibrillation) 05/24/2024 Chronic anticoagulation 05/24/2024 Acute blood loss anemia 05/24/2024 AVM (arteriovenous malformat ion) of stomach, acquired with hemorrhage 05/24/2024 Nonischemic cardiomyopathy 03/17/2024 Chronic atrial fibrillation 12/29/2023 Atherosclerosis of aorta 06/23/2023 Atherosclerosis of coronary artery of [place] heart without angina pectoris 06/23/2023 Atrial thrombus [...] 01/04/2013 Yi esophagus 03/23/2012 Decreased hearing 01/31/2012 Overview (01/31/2012): Consider eval Restless legs syndrome 07/16/2010 Hypothyroidism 07/02/2001 Mitral valve disorder documented as of this encounter (statuses as of 07/22/2024) Resolved Problems Problem Noted Date Diagnosed Date [...] HX OF BREAST MALIGNANCY - ri ght, [id number], 200702/26/2011 10/04/2013 Polyneuropathy in other dise ases classified elsewhere 11/26/2010 06/19/2017 Labyrinthitis, unspecified 03/15/2010 1 08/19/2016 Vertigo 03/15/2010 04/29/2019 Multiple Telangiectases Upper Back 01/31/2009 06/19/2017 Malignant neoplasm of lower- outer quadrant of female breast 12/13/2007 01/04/2013 Overview (11/27/2015): ICD-10 update of inactive term lichenification around r ankle 12/08/2007 06/19/2017 AK on nasal dorsum 12/08/2007 7 ADVANCE DIRECTIVE INFORMATION 05/13/2007 06/19/2017 Overview (05/13/2007): No, Advance Directive brochure given to patient. Esophageal reflux 10/03/2006 01/04/2013 ADVANCE DIRECTIVE INFORMATION 04/08/2005 04/29/2019 Overview (04/08/2005): No, Advance Directive brochure offered , patient declined. Menopause 08/03/2003 06/19/2017 HTN, goal below 140/90 08/03/200301/04 documented as of this encounter (statuses as of 07/22/2024) Immunizations Name Administration Dates Next Due COVID-19 mRNA, LNP-s, No Pre serve, 2-Dose Series ([employer]) 07/19/2021,11/06/2020,10/11/2020 COVID-19, LNP-s, No Preserve , Sony-sucrose, Ages 12+ ([employer]) 12/27/2021 COVID-19, MRNA-LNP, 24-25, P R, 30MCG/0.3ML, IM, 12YRS AND ABOVE ([employer]) 04/28/2024 COVID-19, MRNA-LNP, PF, 30 M CG/0.3 mL, 12 YRS AND ABOVE, IM ([employer]) 07/13/2023 Covid-19, Mrna, Lnp-s, Pf, B ivalent, 30 Mcg, IM, 12 yrs and above ([employer]) 07/17/2022 Influenza, Whole Virus 09/15/1985 Pneumococcal [...] Date Recorded PHQ Adult Total Score 0 07/20/2024 Hunger Vital Sign Answer Date Recorded Within the past 12 months, y ou worried that your food would run out before you got the money to buy more. Never true 07/12/20 24 Within the past 12 months, t he food you bought just didn't last and you didn't have money to get more. Never true 07/12/2024 Childcare Answer Date Recorded Do you feel overwhelmed with taking care of a child, family member or friend? No 07/12/2024 Does your family need help f inding childcare? (Household - for ages 0-17 years) Not on file 07/12/2024 Clothing Answer Date Recorded Have you been unable to get clothing when it was really needed? No 07/12/2024 Is your family able to get c lothes or diapers when needed? (Household - for ages 0-17 years) Not on file 07/12/2024 Personal Safety Answer Date Recorded Do you feel unsafe or have concerns for your saf ety? No 07/12/2024 Do you have concerns for you r family's safety? (Household - for ages 0-17 years) Not on file 07/12/2024 Utilities Answer Date Recorded Do you have trouble paying y our heating, water, or electric bill? No 07/12/2024 Is your family able to pay t he heat, water, or electric bill? (Household - for ages 0-17 years) Not on file 07/12/2024 Does your family have access to good internet? (Household - for ages 0-17 years) Not on file 07/12/2024 Employment Status Answer Date Recorded Are you unemployed or without regular income? No 07/12/2024 Does the household have a re gular source of income? (Household - for ages 0-17 years) Not on file 07/12/2024 Social Connections Answer Date Recorded How often do you feel lonely or isolated from th ose around you? Never 07/12/2024 Financial Resource Strain Answer Date R ecorded Do you have any trouble payi ng for your medications, or do you think you might in the future? No 07/12/2024 Does your family have troubl e paying for medicine? (Household - for ages 0-17 years) Not on file 07/12/2024 Transportation Needs Answer Date Record ed Do you have trouble getting a ride to medical visits or work? (Adult - for ages 18 years and over) Not on file 07/12/2024 Does your family have a hard time getting a ride to doctors visits? (Household - for ages 0-17 years) Not on file 07/12/2024 Has lack of transportation k ept you from medical appointments, meetings, work, or from getting things needed for daily living? Check all that apply. No 07/12/2024 Do you (or your family) have trouble finding or paying for a ride (transportation)? (Household - for ages 0-17 years) Not on file 07/12/2024 Housing Stability Answer Date Recorded Do you currently live in a s helter or have no steady place to sleep at night? No 07/12/2024 Do you think you are at risk of becoming homeless? (Adult - for ages 18 years and over) Not on file 07/12/2024 Does your family worry about paying for your home or becoming homeless? (Household - for ages 0-17 years) Not on file 1 09/11/2023 Are you homeless or worried that you might be in the future? No 07/12/2024 Are you (or your family) jorje eless or worried that you might be in the future? (Household - for ages 0-17 years) Not on file Food Insecurity Answer Date Recorded Do you need food for this week? No 07/12/2024 Are you able to get enough f ood for your family? (Household - for ages 0-17 years) Not on file 07/12/2024 Does your family need food t his week? (Household - for ages 0-17 years) Not on file 07/12/2024 Do you always have enough fo od for your family? 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 Answer Date of Assessment Author Yes 05/23/2024 10:36 PM EDT An Moeller RN * Are you blind or do you have serious difficulty seeing, even when wearing glasses? Answer Date of Assessment Author No 05/23/2024 10:36 PM An Ann RN * Do you have serious difficulty walking or climbing stairs? (5 years old or older) Answer Date of Assessment Author No 05/23/2024 10:36 PM An Ann RN * Do you have difficulty dressing or bathing? (5 years old or older) Answer Date of Assessment Author No 05/23/2024 10:36 PM JOYT An Moeller RN * Because of a physical, mental, or emotional condition, do you have difficulty doing errands alone such as visiting a doctors office or shopping? (15 years old or older) Answer Date of Assessment Author No 05/23/2024 10:36 PM An Ann RN documented as of this encounter Mental Status * Because of a physical, mental, or emotional condition, do you have serious difficulty concentrating, remembering, or making decisions? (5 years old or older) Answer Entry Date Author No 05/23/2024 10:36 PM EDT An Moeller RN documented in this encounter Miscellaneous Notes * Telephone Encounter - Camryn Dale LPN - 07/22/2024 2:28 PM EST Left detailed message on patient's 's mobile phone, requested a return call, return phone number provided. * Telephone Encounter - Camryn Dale LPN - 07/22/2024 2:19 PM EST Called to speak with patient at [phone], male speaker answered x 2, he did not respond to thisnurses greeting, kept asking "Hello", then ended call. Left patient a voicemail after first attempt. My G sent. * Telephone Encounter - Tushar Tomlinson RN - 07/22/2024 1:58 PM EST Vitamin K unable to be added. Shun: can you please call patient and ask her to return to lab? * Addendum Note - Tushar Tomlinson RN - 07/22/2024 8:31 AM ESTAddended by: TUSHAR TOMLINSON on: 07/22/2024 08:31 AM Modules accepted: Orders * Telephone Encounter - Tushar Tomlinson RN - 07/22/2024 8:30 AM EST Vit K had not been drawn- added to lab work from 07/19. If it cannot be added, patient will need to be called to return to lab. * Telephone Encounter - Bahman Brandon MD - 07/22/2024 8:15 AM EST I am waiting for the vitamin K level result. Hopefully we should be able to get a next few days, I would like to see her in the clinic next week. * Telephone Encounter - Tushar Tomlinson RN - 07/22/2024 8:[address] Brandon: all labs have resulted. When would you like to see patient to discuss results? * Telephone Encounter - Tushar Tomlinson RN - 07/21/2024 8:02 AM EST Factor X still in process. * Telephone Encounter - Tushar Tomlinson RN - 07/19/2024 2:30 PM EST Received TT from lab- INR 9.0. Dr Brandon already aware, saw patient for office visit today. Attempted to add PT/aPTT mixing study. Called lab, this looks to be able to be added. documented in this encounter Plan of Treatment Upcoming Encounters Date Type Department Care Team (Late st Contact Info) Description 08/02/2024 10:20 AM EST Office Visit Podiatry [facility] [address] [place] [address] Nicki Gomez DPM 132 [facility] [place] [address] 08/23/2024 1:10 PM EST Laboratory Laboratory, [facility] [place] [address] [facility] [address] [place] [address] 10/03/2024 3:00 PM EST Office Visit Cardiology, [facility] [address] [place] [address] Rashmi Graham PA-C [address] [place] [address] 10/04/2024 3:00 PM EST Office Visit General Internal Medicine [facility] 200 [facility] [place] [address] Ruth Brandon MD 200 [facility] [place] [address] 11/22/2024 2:00 PM EDT Office Visit Cardiology, [facility] [address] [place] [address] Rashmi Graham PA-C [address] [place] [address] 04/28/2025 1:40 PM EDT Office Visit Rheumatology [address] [place], [place] [address] Sergio Coughlin MD [address] [place] [address] [place], [place] [address] Scheduled Orders Name Type Priority Associated Diagnoses Orde r Schedule VITAMIN K Lab STAT Bleeding diathesis (HCC) Expected: 07/22/2024, Expires: 07/22/2025 Scheduled Procedures Name Priority Associated Diagnoses Date/Ti [...] Adult Wellness Visit 01/11/2025 01/12/2024, 09/17/19 23 Albumin/Creatinine Ratio 05/06/2025 05/06/2022, 01/2017 GFR 06/14/2025 06/14/2024, 05/18, 05/24/2024, Additional history exists TSH 07/19/2025 07/19/2024, 04/18, 09/22/2023, Additional history exists Depression Screening 07/20/2025 07/20/2024, 01/12/2024, 01/12/2024 DTap/Tdap Vaccines (3 - Td or Tdap) 04/29/2026 04/29/2016, 03/02/2006 Pneumococcal Vaccine: 65+ Years Completed 04/04/2015, 09/28/2012, 10/28/2006 Zoster Vaccines Completed 01/15/2019, 02/2018, 04/02/2011 Influenza Vaccine (FLU shot) Completed 07/2024, 04/28/2024, 05/14/2023, Additional history exists VITAMIN D LEVEL ONCE IN A LIFETIME-USE SMARTSET# [id number] Completed 06/08/2024, 04/20/2024, 02/10/2023, Additional history exists [...] this encounter Medical Devices Implanted Type Area Stabilizing Machine Operator Device Identifier Shelf Expiration Date Model / Serial / Lot Port 6fr Chronoflex [id number] - [id number] [place]planted:Qty: 1 on 02[place]22/[place] [facility] [place]: Chest CR BARD : [employer] [id number] / / [id number] documented as of this encounter Visit Diagnoses Diagnosis Bleeding diathesis (HCC)- Primary Unspecified hemorrhagic conditions documented in this encounter Advance Directives Documents on File Type Date Recorded Patient Director Camp Expl anation Advance Directives and Living Will [...] 1:06 PM 01/16/2008 7:05 PM Care Teams Frothing Machine Operator Relationship Specialty Start Date End Date Ruth Brandon MD [address] [place] [address] PCP - General Internal Medicine 04/25/21 documented as of this encounter
--- OUTSIDE RECORDS SUMMARY | 2024-07-24 23:48 | External Medical Summary | Summary of Care ---
Author Name Unknown Organization [facility] Address [address] [place] [address] Phone [phone] Care Team Providers Care Diesel Technician Mechanic Name Role Phone Ruth Brandon MD Primary Care Provider + Reason for Visit * Reason Onset Date Comments Outpatient Testing 07/19/2024 Encounter Details Date Type Department Care Team (Late st Contact Info) Description 07/19/2024 Telephone Hematology/Oncology Treatment, [place] [address] [place] [address] Bahman Brandon MD [address] [place] [address] Outpatient Testing Allergies Active Allergy Reactions Criticality [...] Atherosclerosis of coronary artery of [place] heart without angina pectoris 06/23/2023 Atrial thrombus [...] HX OF BREAST MALIGNANCY - ri ght, [id number], 200702/26/2011 10/04/2013 Polyneuropathy in other dise ases [...] mRNA, LNP-s, No Pre serve, 2-Dose Series ([employer]) 07/19/2021,11/06/2020,10/11/2020 COVID-19, LNP-s, No Preserve , Sony-sucrose, Ages 12+ ([employer]) 12/27/2021 COVID-19, MRNA-LNP, 24-25, P R, 30MCG/0.3ML, IM, 12YRS AND ABOVE ([email or web address]) 04/28/2024 COVID-19, MRNA-LNP, PF, 30 M CG/0.3 mL, 12 YRS AND ABOVE, IM ([email or web address]) 07/13/2023 Covid-19, Mrna, Lnp-s, Pf, B ivalent, 30 Mcg, IM, 12 yrs and above ([employer]) 07/17/2022 Influenza, Whole Virus 09/15/1985 Pneumococcal Conjugate [...] a return call, return phone number provided. Bahman Brandon MD at 07/22/24 1422 Status: Signed I would like to start vitamin K 5 mg once a day. ( e-prescribed). I would like to see her in the clinic Thursday ( overbook) * Telephone Encounter - Camryn Dale LPN - 07/22/2024 2:19 PM EST Called to speak with patient at [phone], male speaker answered x 2, he did [...] 08/02/2024 10:20 AM EST Office Visit Podiatry [facility] 132 [facility] [place] [address] Nicki Urrutia DPM [facility] [place] [address] 08/23/2024 1:10 PM EST Laboratory Laboratory, [facility] [address] [facility] [place] [phone] [facility] [place] [address] 10/03/2024 3:00 PM EST Office Visit Cardiology, [facility] [address] [facility] [place] [address] Rashmi Graham PA-C [facility] [address] 10/04/2024 3:00 PM EST Office Visit General Internal Medicine [facility] [place] [address] Ruth Brandon MD 200 [facility] [place] [address] 11/22/2024 2:00 PM EDT Office Visit Cardiology, [facility] [address] [facility] [place] [address] Rashmi Graham PA-C [facility] [place] [address] 04/28/2025 1:40 PM EDT Office Visit Rheumatology [address] [place] [address] Sergio Coughlin MD [address] [place] [address] [place], [place] [address] Scheduled Orders Name Type Priority Associated Diagnoses [...] D LEVEL ONCE IN A LIFETIME-USE SMARTSET# [id number] Completed 06/08/2024, 04/20/2024, 02/10/2023, Additional history exists [...] this encounter Medical Devices Implanted Type Area Shipping Agent Device Identifier Shelf Expiration Date Model / Serial / Lot Port 6fr Chronoflex [id number] - [id number] Implanted:Qty: 1 on 02/22/2008 at [facility] Left: Chest CR BARD : [employer] [id number] / / [id number] documented as of this encounter Visit Diagnoses Diagnosis Bleeding diathesis (HCC)- Primary Unspecified hemorrhagic conditions documented in this encounter Advance Directives Documents on File Type Date Recorded Patient Clinical Massage Therapist Expl anation Advance Directives and Living Will [...] 1:06 PM 01/16/2008 7:05 PM Care Teams Diesel Technician Mechanic Relationship Specialty Start Date End Date Ruth Brandon MD 200 [facility] [place] [address] PCP - General Internal Medicine 04/25/21 documented as of this encounter
--- OUTSIDE RECORDS SUMMARY | 2024-07-24 23:48 | External Medical Summary | Summary of Care ---
Author Name Unknown Organization [facility] Address [address] [place] [address] Phone [phone] Care Team Providers Care Manager Coding Name Role Phone Ruth Brandon MD Primary Care Provider + Encounter Details Date Type Department Care Team (Late st Contact Info) Description 07/22/2024 Orders Only Hematology/Oncology [facility] [place] [address] [place] [phone] Bahman Brandon MD [address] [place] [address] Bleeding diathesis (HCC)*; Vitamin K deficiency Allergies Active Allergy Reactions Criticality Noted Date [...] Tablet 3 06/15/2024 3:46 PM EDT 06/14/20 24 Active Additional Information Patient not taking.Reported [...] Tablet 3 07/19/2024 2:07 PM EST 07/18/20 24 Active Phytonadione 5 MG Oral Tablet (Mephyton)Indicati ons:Bleeding diathesis (HCC),Vitamin K deficiency Take 1 tablet every day. 30 Tablet 1 07/22/20 24 Active documented as of this encounter (statuses as of 07/22/2024) Active Problems Problem Noted Date Diagnosed Date SDH (subdural hematoma) 05/25/2024 PAF (paroxysmal atrial fibrillation) 05/24/2024 Chronic anticoagulation 05/24/2024 Acute blood loss anemia 05/24/2024 AVM (arteriovenous malformat ion) of stomach, acquired with hemorrhage 05/24/2024 Nonischemic cardiomyopathy 03/17/2024 Chronic atrial fibrillation 12/29/2023 Atherosclerosis of aorta 06/23/2023 Atherosclerosis of coronary artery of [place] heart without angina pectoris 06/23/2023 Atrial thrombus [...] HX OF BREAST MALIGNANCY - ri ght, [id number], 200702/26/2011 10/04/2013 Polyneuropathy in other dise ases [...] mRNA, LNP-s, No Pre serve, 2-Dose Series (Revenew) 07/19/2021,11/06/2020,10/11/2020 COVID-19, LNP-s, No Preserve , Sony-sucrose, Ages 12+ (Revenew) 12/27/2021 COVID-19, MRNA-LNP, 24-25, P R, 30MCG/0.3ML, IM, 12YRS AND ABOVE (Revenew-ComirnatHESKA) 04/28/2024 COVID-19, MRNA-LNP, PF, 30 M CG/0.3 mL, 12 YRS AND ABOVE, IM (ProfexirnatHESKA) 07/13/2023 Covid-19, Mrna, Lnp-s, Pf, B ivalent, 30 Mcg, IM, 12 yrs and above (Revenew) 07/17/2022 Pneumococcal Conjugate Vacc, 13 Valent (Prevnar) [...] money to buy more. Never true 07/12/20 Within the past 12 months, t he [...] of Assessment Author Yes 05/23/2024 10:36 PM An Ann RN * Are you blind or do [...] 05/23/2024 10:36 PM An Ann RN * Because of a physical, mental, [...] An Moeller RN documented in this encounter Progress Notes * Bahman Brandon MD - 07/22/2024 2:22 PM EST I would like to start vitamin K 5 mg once a day. ( e-prescribed). I would like to see her in the clinic Thursday ( overbook). documented in this encounter Plan of Treatment Upcoming Encounters Date Type Department Care Team (Late st Contact Info) Description 08/02/2024 10:20 AM EST Office Visit Podiatry [facility] [address] [place] [address] Nicki Gomez DPM [address] [place] [address] 08/23/2024 1:10 PM EST Laboratory Laboratory, [facility] [address] [place] [phone] [facility] [address] [facility] [place] [address] 10/03/2024 3:00 PM EST Office Visit Cardiology, [facility] [address] [place] [address] Rashmi Graham PA-C [address] [place] [address] 10/04/2024 3:00 PM EST Office Visit General Internal Medicine [facility]heen Waller [place] [address] [place] [address] Ruth Brandon MD [address] [place] [address] 11/22/2024 2:00 PM EDT Office Visit Cardiology, [facility] [address] [place] [address] Rashmi Graham PA-C [address] [place] [address] 04/28/2025 1:40 PM EDT Office Visit Rheumatology [facility] [address] [place] [address] Sergio Coughlin MD [address] [place] [address] Scheduled Procedures Name Priority Associated Diagnoses Date/Ti [...] 01/12/2024, 09/17/19 23 Albumin/Creatinine Ratio 05/06/2025 05/06/2022, 1101/2017 GFR 06/14/2025 06/14/2024, 05/18, 05/24/2024, Additional history [...] D LEVEL ONCE IN A LIFETIME-USE SMARTSET# [id number] Completed 06/08/2024, 04/20/2024, 02/10/2023, Additional history exists [...] this encounter Medical Devices Implanted Type Area Barrel Charrer Device Identifier Shelf Expiration Date Model / Serial / Lot Port 6fr Chronoflex [id number] - [id number] Implanted:Qty: 1 on 02/22/2008 at OR [facility] Left: Chest CR BARD : [employer] [id number] / / [id number] documented as of this encounter Visit Diagnoses Diagnosis Bleeding diathesis (HCC)- Primary Unspecified hemorrhagic conditions Vitamin K deficiency Deficiency of vitamin K documented in this encounter Advance Directives Documents on File Type Date Recorded Patient Help Desk Intern Expl anation Advance Directives and Living Will [...] 1:06 PM 01/16/2008 7:05 PM Care Teams Manager Coding Relationship Specialty Start Date End Date Ruth Brandon MD [address] [place] [address] PCP - General Internal Medicine 04/25/21 documented as of this encounter
--- OUTSIDE RECORDS SUMMARY | 2024-07-24 23:48 | External Medical Summary | Summary of Care ---
Author Name Unknown Organization [facility] Address [address] [place] [address] Phone [phone] Care Team Providers Care Anime Artist Name Role Phone Ruth Brandon MD Primary Care Provider + Reason for Visit * Reason Onset Date Comments Outpatient Testing 07/19/2024 Encounter Details Date Type Department Care Team (Late st Contact Info) Description 07/19/2024 Telephone Hematology/Oncology Treatment, [place] [address] [place] [address] Bahman Brandon MD [address] [place] [address] Outpatient Testing Allergies Active Allergy Reactions Criticality [...] aorta 06/23/2023 Atherosclerosis of coronary artery of [place] heart without angina pectoris 06/23/2023 Atrial thrombus [...] HX OF BREAST MALIGNANCY - ri ght, [id number], 200702/26/2011 10/04/2013 Polyneuropathy in other dise ases [...] mRNA, LNP-s, No Pre serve, 2-Dose Series (BView) 07/19/2021,11/06/2020,10/11/2020 COVID-19, LNP-s, No Preserve , Sony-sucrose, Ages 12+ (BView) 12/27/2021 COVID-19, MRNA-LNP, 24-25, P R, 30MCG/0.3ML, IM, 12YRS AND ABOVE (BView-Intentive CommunicationsirnatBusuu) 04/28/2024 COVID-19, MRNA-LNP, PF, 30 M CG/0.3 mL, 12 YRS AND ABOVE, IM (Knight WarnerComirnatBusuu) 07/13/2023 Covid-19, Mrna, Lnp-s, Pf, B ivalent, 30 Mcg, IM, 12 yrs and above (BView) 07/17/2022 Influenza, Whole Virus 09/15/1985 Pneumococcal Conjugate [...] EST Called to speak with patient at [phone], male speaker answered x 2, he did [...] 08/02/2024 10:20 AM EST Office Visit Podiatry [facility] [address] [facility] [place] [address] Nicki Gomez DPM [address] [facility] [place] [address] 08/23/2024 1:10 PM EST [facility] [address] [facility] [place] [phone] [facility] [place] [address] 10/03/2024 3:00 PM EST [facility] [address] [facility] [place] [address] Rashmi Graham PA-C [address] [place] [address] 10/04/2024 3:00 PM EST Office Visit General Internal Medicine [facility] [address] [facility] [place] [address] Ruth Brandon MD [address] [facility] [place] [address] 11/22/2024 2:00 PM EDT Office Visit Cardiology, [facility] [address] [place] [address] Rashmi Graham PA-C [address] [place] [address] 04/28/2025 1:40 PM EDT Office Visit Rheumatology [facility] [address] [place] [address] Sergio Coughlin MD [address] [facility] [place] [address] Scheduled Orders Name Type Priority Associated Diagnoses [...] 01/12/2024, 09/17/19 23 Albumin/Creatinine Ratio 05/06/2025 05/06/2022, 110 01/2017 GFR 06/14/2025 06/14/2024, 05/18, 05/24/2024, Additional [...] D LEVEL ONCE IN A LIFETIME-USE SMARTSET# [id number] Completed 06/08/2024, 04/20/2024, 02/10/2023, Additional history exists [...] this encounter Medical Devices Implanted Type Area Timber Watchman Device Identifier Shelf Expiration Date Model / Serial / Lot Port 6fr Chronoflex [id number] - [id number] Implanted:Qty: 1 on 02/22/2008 at OR [facility] Left: Chest CR BARD : [employer] [id number] / / [id number] documented as of this encounter Visit Diagnoses Diagnosis Bleeding diathesis (HCC)- Primary Unspecified hemorrhagic conditions documented in this encounter Advance Directives Documents on File Type Date Recorded 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
--- OUTSIDE RECORDS SUMMARY | 2024-07-24 23:49 | External Medical Summary | Summary of Care ---
Author Name Unknown Organization [facility] Address [address] [place] [address] Phone [phone] Care Team Providers Care Vascular Surgery Physician Name Role Phone Ruth Brandon MD Primary Care Provider + Reason for Visit * Reason Comments NEW PATIENT * Evaluate & Treat - Unlimited Visits (Within 30 days (routine)) - Authorized Specialty Diagnoses / Procedures Referred By Valeria t Referred To Contact Hematology/Oncology / Hematology Oncology Diagnoses Iron deficiency anemia, unspecified iron deficiency anemia type Ruth Brandon MD [address] [facility] [place] [address] Phone: tel: fax: Referral ID Status Reason Start Date Expiration Date Visits Requested Visits Authorized [id number] Authorized Specialty Services Required [phone] Encounter Details Date Type Department Care Team (Late st Contact Info) Description 07/19/2024 12:15 PM EST Office Visit Hematology/Oncology [place] K[facility]ik Gutierrez [address] [phone] Bahman Brandon MD [address] [id number] Bleeding diathesis (HCC)* Allergies Active Allergy Reactions Criticality Noted Date [...] morning. 50 Tablet 3 05/12/20 24 Active Pantoprazole Sodium 40 MG [...] aorta 06/23/2023 Atherosclerosis of coronary artery of [place] heart without angina pectoris 06/23/2023 Atrial thrombus [...] HX OF BREAST MALIGNANCY - ri ght, [id number], 200702/26/2011 10/04/2013 Polyneuropathy in other dise ases [...] mRNA, LNP-s, No Pre serve, 2-Dose Series ([employer]) 07/19/2021,11/06/2020,10/11/2020 COVID-19, LNP-s, No Preserve , Sony-sucrose, Ages 12+ ([employer]) 12/27/2021 COVID-19, MRNA-LNP, 24-25, P R, 30MCG/0.3ML, IM, 12YRS AND ABOVE ([employer]) 04/28/2024 COVID-19, MRNA-LNP, PF, 30 M CG/0.3 mL, 12 YRS AND ABOVE, IM ([employer]) 07/13/2023 Covid-19, Mrna, Lnp-s, Pf, B ivalent, 30 Mcg, IM, 12 yrs and above ([employer]) 07/17/2022 Pneumococcal Conjugate Vacc, 13 Valent (Prevnar) [...] 07/12/2024 Does the household have a re lar source of income? (Household - for ages [...] Sign Reading Time Taken Comments Blood Pressure 145/68 07/19/2024 12:30 PM EST Pulse 78 07/19/2024 12:30 PM EST Temperature 36.3 C (97.4 F) 07/19/2024 1 2:30 PM EST Respiratory Rate - - Oxygen Saturation 93% 07/19/2024 12: 30 PM EST Inhaled Oxygen Concentration - - Weight 80.6 kg (177 lb 12.8 oz) 024 12:30 PM EST Height 147.3 cm (4' 10") 07/19/2024 12: 30 PM EST Body Mass Index 37.16 07/19/2024 12:30 PM EST documented in this encounter Functional Status * Are you deaf or do you have serious difficulty hearing? Answer Date of Assessment Author Yes 05/23/2024 10:36 PM EDT An Moeller RN * Are you blind or do you have serious difficulty seeing, even when wearing glasses? Answer Date of Assessment Author No 05/23/2024 10:36 PM EDT An Moeller RN * Do you have serious difficulty walking or climbing stairs? (5 years old or older) Answer Date of Assessment Author No 05/23/2024 10:36 PM An Ann RN * Do you have difficulty dressing or bathing? (5 years old or older) Answer Date of Assessment Author No 05/23/2024 10:36 PM EDT An Moeller RN * Because of a [...] Entry Date Author No 05/23/2024 10:36 PM An Ann RN documented in this encounter Progress Notes * Bahman Brandon MD - 07/19/2024 12:15 PM EST Hematology/Oncology Outpatient Consult Note Viki Jamison [address] [place] [address] EDUARDA DUKES MR # [id number] :1945 79-year-old female, REASON FOR CONSULTATION: Consultation for Eduarda Dukes requested by Dr. Ruth Brandon for evaluation and discussion of treatment options for bleeding issues while on anticoagulant treatment Date of consultation:07/19/2024 DIAGNOSIS: Significant GI bleed and soft tissue bleed and subdural hematoma while on oral Coumadin which was given for atrial thrombus and paroxysmal atrial fibrillation. GI bleed and the right lower extremity soft tissue bleed while on Eliquis. Both PT and PTT are prolonged. ( while not on any anticoagulant treatment). CURRENT TREATMENT: Planning for additional diagnostic workup to look for any acquired bleeding disorder. DIAGNOSTIC WORKUP: -she is on oral Coumadin which was started after noticing right atrial thrombus/pacemaker lead thrombus somewhere in 09/2022. - she continued oral Coumadin at a dose of 2.5 mg 4 to 5 days in a week and followed with regularlywith the INR checkup . Fingersticks INR was between 2.7 - 4.7 in the last few months -Prothrombin time was over 70 seconds, INR was > 9. ( 05/17/2024). She started having weakness in the both legs, bruising in the upper extremities, black stool, blacktongue, she was then referred to [facility] ER where she was admitted. - I hemoglobin level dropped down to around 6.4 as of 05/20/2024 with a normal WBC and the normal Platelet count at that time but subsequently Platelet count dropped down to around 100 20,000 range. - Prothrombin time was over 90 seconds, INR was over 9.5, PTT was also prolonged to around 112. She received vitamin K 10 mg x 1 dose in ER. Received 4 units of PRBC. Coumadin was on hold. Upper GI endoscopic on 05/22/2024 showed 2 nonbleeding angiectasia in the stomach. - On 05/23/2024 --> CBCD additional 5 mg of vitamin K. PTT dropped down to around 41 seconds, ( 05/23/2024). She complained of some headache. CT scan of the head done on 05/22/2024--> trace acute subdural hemorrhage along anterior and posterior aspect of the falx. Possible subdural hemorrhage overlying the bilateral temporal lobes. No mass effect. She was then transferred at [facility] where she was managed conservatively. History of right atrial thrombus, she had echocardiogram during the hospitalization, there was no evidence of thrombus noted in the atrium. She received additional blood transfusion while she was admitted at [facility]. She was followed by Neurosurgery team, she had a CT scan of the head on 06/02/2024, showed near complete resolution of the previously noted subdural hematoma. She was started on Eliquis at 5 mg twice a day on 06/26/2024. ( previous atrial thrombus and paroxysmal atrial fibrillation). About week later, she started having black stools, bruising involving the right thigh, she was seenat [facility] on 07/03/2024. -PT was over 90 seconds, PTT was over 139 seconds. ( 07/03/2024). -PTT dropped down to around 36 seconds on 07/05/2024. - PT was dropped down on 16.6 with INR of 1.6 GI bleeding scan done on 07/05/2024 --> no suspicious findings noted. On 07/06/2024 an EGD and colonoscopy were performed status post prep and multiple 5 to 9 mm gastricpolyps were noted without evidence of esophagitis or esophageal varices. No polyps were identified on colonoscopy however internal hemorrhoids were noted. Eliquis has been discontinued since then. OTHER IMPORTANT HISTORY: -nonischemic cardiomyopathy, -S/P pacemaker ICD placement 2017 at [facility] -congestive heart failure. -chronic left bundle-branch block. -pacemaker lead thrombus/right atrial thrombus. ( 09/2022) -hypothyroidism -history of right breast cancer, S/P mastectomy, chemotherapy and radiation treatment. - atrial fibrillation with rapid ventricular rate causing shortness of breath and admission at [facility] in December 2023 INTERVAL HISTORY: She has come the clinic for the follow-up, she came to clinic by herself, gradual improvement of the bruising involving the right lower extremity, right periorbital and subconjunctival hemorrhage. Currently she is off the anticoagulant treatment, she is not on aspirin therapy. No new cardiac or pulmonary symptoms, no previous history of any kind of bleeding disorder in the past. No new cardiac or pulmonary symptom. Previously noted headache has improved. Ambulates well by herself, current weight is around 177 lb. REVIEW OF SYSTEMS: GENERAL: No recent change in weight, no weakness, no fatigue, no fever, sweats or chills. SKIN: No skin rash, bruising present. HEAD: No new headache, no dizziness. EYES: No recent change in the vision, no diplopia, EARS: No earache no tinnitus, NOSE: No epistaxis, No nasal discharge or stuffiness, MOUTH: No sores, no dysphagia, no hoarseness of voice, NECK: No lumps, No swelling in thyroid area. No stiffness. PULMONARY: No cough, No shortness of breath, no hemoptysis, no chest pain, No wheezing. CARDIOVASCULAR: No anginal chest pain, no PND, no orthopnea. No palpitation, no leg edema. No syncope. GASTROINTESTINAL: No abdominal pain, no nausea or vomiting. No diarrhea, No constipation. No blood in stool or black tarry stools. No abdominal distention. UROLOGIC: No burning urination. No hematuria. MUSCULOSKELETAL: No joint pain, No joint swelling, no muscle weakness. HEMATOLOGIC: No anemia, possible bleeding disorder, NEUROLOGIC: No seizures, no focal weakness, no speech difficulty, No memory disturbances. No tingling or numbness of the extremities. PSYCHIATRIC: No depression. No anxiety. No psychosis. Past Medical History: Diagnosis Date Yi's esophagus 03/09/2012 UPPER GI ENDOSCOPY DIAGNOSTIC performed by Uma Lin DO at ENDOSCOPY [facility], path showsshort segment Barretts esophagitis repeat in 1 year Barretts esophagus 04/05/2013 UPPER GI ENDOSCOPY DIAGNOSTIC performed by Uma Lin DO at ENDOSCOPY [facility], inflammation consistent with long segment barretts, repeat [...] OPEN performed by SRIKANTH NÚÑEZ at OR [facility] CATHETERIZE LEFT HEART THRU SKIN 06/2000 Cardiac Catheterization, Left Heart COLONOSCOPY 1989 - COLONOSCOPY, DIAGNOSTIC (RECTUM) 01/30/09 repeat 10 yrs COLONOSCOPY, DIAGNOSTIC (RECTUM) 11/25/2018 diverticulosis, repeat 10 yrs/[facility] DILATION AND CURETTAGE (D&C) D&C Dr Ward EGD, FLEXIBLE, DIAGNOSTIC 03/09/2012 UPPER GI ENDOSCOPY DIAGNOSTIC performed by Uma Lin DO at ENDOSCOPY [facility], path showsshort segment Barretts esophagitis repeat in 1 year EGD, FLEXIBLE, DIAGNOSTIC 04/05/2013 UPPER GI ENDOSCOPY DIAGNOSTIC performed by Uma Lin DO at ENDOSCOPY [facility], inflammation consistent with long segment barretts, repeat egd in 3 years EGD, FLEXIBLE, DIAGNOSTIC 07/08/2016 Barretts, repeat 3 yrs/[facility] INSER TUNN ACC DEV;5 YRS/OLDER 02/22/08 INSERT TUNNELED CENTRAL VENOUS ACCESS WITH SUBQ PORT performed by SRIKANTH NÚÑEZ at OR [facility] LEFT VENTRICULAR PACING ELECTRODE, ADD-ON Left 08/25/2017 CS LEAD PLACEMENT WITH INITIAL DEVICE performed by Kamryn Espinoza DO at CARDIAC LABS [facility] LIGATE/CUT OVIDUCT(S) MASTECTOMY, SIMPLE, COMPLETE 01/14/08 MASTECTOMY SIMPLE COMPLETE performed by SRIKANTH NÚÑEZ at [facility] THORACOSTOMY TUBE W/ WATER SEAL 02/23/2008 TRANSLUM BALLOON ANGIOPLASTY OPEN/PERC W/IMAGE 1ST VEIN 08/25/2017 ANGIOPLASTY (EXCEPT DIALYSIS CIRCUIT) performed by Kamryn Espinoza DO at CARDIAC LABS [facility] VENOGRAM EXTREMITY UNI-FLUOR 08/25/2017 IMAGING SUPERVISION & INTERPRETATION EXTREMITY VEIN performed by Kamryn Espinoza DO at CARDIAC LABS [facility] Current Outpatient Medications Medication Sig Dispense Refill [...] MOUTH TWICE A DAY 200 Tablet 3 Metoprolol Succinate ER 25 MG [...] Take 1 Tablet by mouth at bedtime. (Patient not taking: Reported on 07/12/2024) 30 Tablet 3 Apixaban 5 MG Oral Tablet (Eliquis) Take 1 Tablet by mouth in the morning and 1 Tablet before bedtime. (Patient not taking: Reported on 07/12/2024) 180 Tablet 3 Rosuvastatin Calcium 10 MG Oral Tablet (Crestor) TAKE ONE TABLET BY MOUTH EVERY DAY IN THE MORNING 90 Tablet 3 No current facility-administered medications for this visit. 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 Social Needs Financial Resource Strain: Low Risk (07/12/2024) Financial Resource Strain Do you have any trouble paying for your medications, or do you think you might in the future? (Adult - for ages 18 years and over): No Does your family have trouble paying for medicine? (Household - for ages 0-17 years): Not on file Food Insecurity: No Food Insecurity (07/12/2024) Food Insecurity Do you need food for this week? (Adult - for ages 18 years and over): No Are you able to get enough food for your family? (Household - for ages 0-17 years): Not on file Does your family need food this week? (Household - for ages 0-17 years): Not on file Do you always have enough food for your family? (Household - for ages 0-17 years): Not on file Transportation Needs: No Transportation Needs (07/12/2024) Transportation Needs Do you have trouble getting a ride to medical visits or work? (Adult - for ages 18 years and over):Not on file Does your family have a hard time getting a ride to doctors visits? (Household - for ages 0-17 years): Not on file Has lack of transportation kept you from medical appointments, meetings, work, or from getting things needed for daily living? Check all that apply. (Adult - for ages 18 years and over): No Do you (or your family) have trouble finding or paying for a ride (transportation)? (Household - for ages 0-17 years): Not on file Social Connections: Socially Integrated (07/12/2024) Social Connections How often do you feel lonely or isolated from those around you? (Adult - for ages 18 years and over): Never Housing Stability: Low Risk (07/12/2024) Housing Stability Do you currently live in a custodial or have no steady place to sleep at night? (Adult - for ages 18 years and over): No Do you think you are at risk of becoming homeless? (Adult - for ages 18 years and over): Not on file Does your family worry about paying for your home or becoming homeless? (Household - for ages 0-17 years): Not on file Are you homeless or worried that you might be in the future? (Adult - for ages 18 years and over): No Are you (or your family) homeless or worried that you might be in the future? (Household - for ages0-17 years): Not on file On Exam: BP 145/68 (BP Site: Left Arm, BP Position: Sitting, BP Cuff Size: Regular) | Pulse 78 | Temp 36.3 C (97.4 F) (Tympanic) | Ht 1.473 m (4' 10") | Wt 80.6 kg (177 lb 12.8 oz) | SpO2 93% | BMI 37.16 kg/m | BSA 1.82 m Constitutional: Patient is alert, cooperative and oriented x 3. Well built woman, Patient is in no acute distress. HEENT: No icterus, no pallor, Throat and pharynx normal. Sinuses are non-tender. Neck: Supple and without lymphadenopathy or masses. No JVD. No Palpable supraclavicular lymph nodes. Lungs: Clear to auscultation. Bilateral symmetric air entry. No wheezing or rhonchi. Cardiovascular: Normal heart sounds, no murmurs.Regular rate and rhythm. Abdomen: soft, nontender, no hepatomegaly, no splenomegaly. Bowel sounds are normal. Neurological: No gross focal neurological deficit; walks with a normal gait. Extremities: No finger clubbing, No cyanosis. No leg edema. Skin:: No skin rash. Bruising involving the right lower extremity. SPINE: No spinal or paraspinal tenderness. LABS: Planning for further diagnostic workup. IMAGING: As described above. ASSESSMENT AND PLAN: 79-year-old the female, who was on oral Coumadin since early 2022 for atrial thrombus and paroxysmal atrial fibrillation. Her INR has remained slightly on the higher side in the last 6 months but it had gone up significantly over 8 - 9 range with GI bleed, subdural hematoma, soft tissue bleeding, received vitamin K 10 mg and 5 mg, blood transfusion support. Subsequently with the improvement of the subdural hematoma she was started on Eliquis but about week after that she was admitted Hospital for GI bleed, soft tissue bleeding, she had significant elevated PT and PTT. Currently she is off the Eliquis therapy, she is not on any aspirin therapy. No previous history ofany bleeding disorder. 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 Acquired condition of prolonged both PT and PTT would be liver disease ( she has normal liver function test ), DIC, she does not have any evidence of DIC), vitamin K deficiency ( would be possible). -acquired inhibitor/deficiency of factor II, fibrinogen, Factor V and factor 10 would be possible. - will check 1:1 mixing study. - Will check factor 7 and factor VIII level. - will check factor 10 and fibrinogen level. - will check thrombin time. Will decide about further workup based on above blood test results. Thanks for the consultation. Dr. Bahman Brandon Hem/Onc (This note was completed using the dictation program Fluency Direct. As such, there may be misspellings word substitutions, or other variations that should not change the essence of the clinical content of this encounter note. If there is need for further clarification, please direct questions to the provider listed above.) Blood workup done on 07/19/2024: -Prothrombin time --> > 70, INR > 9 -PTT --> 99. -1 to 1 mixing did correct both PT and PTT. And it stayed corrected after 1 hour. ( suggest factor deficiency ) -factor 7 clotting assay --> less than 4% -factor VIII clotting assay --> 138% -factor 10 clotting assay --> pending. - Fibrinogen level --> 458 -thrombin time --> 17.1 which is normal. Overall she has prolonged both PT and PTT which does correct with one-to-one mixing suggest factor deficiency. No evidence of DIC. Factor 7 level is quite low, waiting for factor 10 level. Vitamin K dependent factors are factor 2, 7, 9, 10. Will see what factor 10 level in her case. Also added vitamin K level checkup in the blood. Dr. Bahman Brandon Hem/Onc documented in this encounter Nursing Notes * Natalia Longo, MED ASSIST - 07/19/2024 12:34 PM EST Patient identifed by name and birthdate Do you have any concerns about pain management for today's visit? Yes. Patient instructed to discuss pain concerns with provider during the visit today Living Will or Advance Directive for Health Care as noted on the problem list. [email or web address] is a way you can talk to your provider on line through e-mail. Would you like to sign up? I can activate it for you? ALREADY ACTIVE Filed Vitals: 07/19/24 1230 BP: 145/68 Pulse: 78 Temp: 36.3 C (97.4 F) TempSrc: Tympanic SpO2: 93% Weight: 80.6 kg (177 lb 12.8 oz) Height: 1.473 m (4' 10") Patient was instructed to not get up on the exam table/exam chair until directed and assisted by their provider; patient is to remain seated in the chair/ wheelchair/ exam table/ exam chair for fall prevention and safety reasons. Patient is aware to have assistance to step down off exam table/exam chair with personnel. Patient voiced full comprehension of instructions. documented in this encounter Plan of Treatment Upcoming Encounters Date Type Department Care Team (Late st Contact Info) Description 08/02/2024 10:20 AM EST Office Visit Podiatry [facility] [address] [place] [id number] Nicki Gomez DPM [address] [facility] [place] [address] 08/23/2024 1:10 PM EST Laboratory Laboratory, [facility] [address] [place] [phone] Candice Yanez [address] [place] [address] 10/03/2024 3:00 PM EST [facility] [address] [address] [address] Rashmi Graham PA-C [address] [place] [address] 10/04/2024 3:00 PM EST Office Visit General Internal Medicine [facility] [address] [facility] [place] [address] Ruth Brandon MD [address] [facility] [place], [place] [address] 11/22/2024 2:00 PM EDT Office Visit Cardiology, [facility] [address] [place] [phone] Rashmi Graham PA-C [address] [place] [phone] 04/28/2025 1:40 PM EDT Office Visit Rheumatology [place] [address] [place] [address] Sergio Coughlin MD [address] [place] [address] Scheduled Orders Name Type Priority Associated Diagnoses Orde r Schedule VITAMIN K Lab Routine Bleeding diathesis (HCC) Expected: 07/20/2024, Expires: 07/20/2025 Scheduled Procedures Name Priority Associated Diagnoses Date/Ti [...] D LEVEL ONCE IN A LIFETIME-USE SMARTSET# [id number] Completed 06/08/2024, 04/20/2024, 02/10/2023, Additional history exists [...] this encounter Medical Devices Implanted Type 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 Device Identifier Shelf Expiration Date Model / Serial / Lot Port 6fr Chronoflex [id number] - [id number] Implanted:Qty: 1 on 02/22/2008 at OR [facility] Left: Chest CR BARD : [employer] [id number] / / [id number] documented as of this encounter Procedures Procedure Name Priority Date/Time Associated Diagnosis Comments PT INR Routine 07/19/2024 1:34 PM EST Bleeding diathesis (HCC) APTT Routine 07/19/2024 1:32 PM EST Bleeding diathesis (HCC) THROMBIN TIME Routine 07/19/2024 1:32 PM EST Bleeding diathesis (HCC) FIBRINOGEN Routine 07/19/2024 1:32 PM EST Bleeding diathesis (HCC) FACTOR VIII (8) CLOTTING ACTIVITY Routine 07/19/2024 1:32 PM EST Bleeding diathesis (HCC) documented in this encounter Results * (ABNORMAL) PT INR (07/19/2024 1:34 PM EST) Prothrombin Time >70.0(H) 11.6 - 15.2 seconds 07/19/2024 2:17 PM EST [facility] [id number] Comment:Results rechecked. INR >9.0(HH) 0.8 - 1.2 07/19/2024 2:17 PM EST [address] Comment:Results rechecked. Blood Venous blood specimen / Unknown Venipuncture / Unknown 07/19/2024 1:34 PM EST 07/19/2024 1:34 PM EST Narrative [facility] [id number] - 07/19/2024 2:17 PM EST Warfarin Therapy INR: 2.0-3.0 conventional anticoagulation INR: 2.5-3.5 high intensity anticoagulation Bahman Brandon MD LAB BLOOD ORDERABLES Final Res ult [facility] [address] [place], [place] [id number] * (ABNORMAL) FACTOR X (10) CLOTTING ACTIVITY (07/19/2024 1:32 PM EST) Factor X (10) Clotting Activity 5(L) 70 - 120 % 07/21/2024 2:00 PM EST LABORATORY [facility] Blood Venous blood specimen / Unknown Venipuncture / Unknown 07/19/2024 1:32 PM EST 07/19/2024 1:32 PM EST us Bahman Brandon MD LAB BLOOD ORDERABLES Final Res ult Performing Organization Address [facility] de Phone Number LABORATORY [facility] [address] [place] [address] * (ABNORMAL) FACTOR VII (7) CLOTTING ACTIVITY (07/19/2024 1:32 PM EST) Factor VII (7) Clotting Activity <4(L) 65 - 135 % 07/20/2024 10:57 AM EST LABORATORY C Blood Venous blood specimen / Unknown Venipuncture / Unknown 07/19/2024 1:32 PM EST 07/19/2024 1:32 PM EST us Bahman Brandon MD LAB BLOOD ORDERABLES Final Res ult Performing Organization Address [facility] de Phone Number LABORATORY [facility] [address] [place] [address] * THROMBIN TIME (07/19/2024 1:32 PM EST) Thrombin Time 17.1 14.7 - 19.6 seconds 07/20/2024 10:13 AM EST LABORATORY C Blood Venous blood specimen / Unknown Venipuncture / Unknown 07/19/2024 1:32 PM EST 07/19/2024 1:32 PM EST Result [facility] us Bahman Brandon MD LAB BLOOD ORDERABLES Final Res ult Performing Organization Address [facility] de Phone Number LAB[facility]ATORY [facility] [facility] [address] [place] [address] * FIBRINOGEN (07/19/2024 1:32 PM EST) Fibrinogen 458 178 - 467 mg/dL 07/20/2024 2:21 AM EST LABORATORY C Blood Venous blood specimen / Unknown Venipuncture / Unknown 07/19/2024 1:32 PM EST 07/19/2024 1:32 PM EST us Bahman Brandon MD LAB BLOOD ORDERABLES Final Res ult Performing Organization Address [facility] de Phone Number LABORATORY [facility] [address] [place] [address] * (ABNORMAL) APTT (07/19/2024 1:32 PM EST) aPTT 99(H) 21 - 38 seconds 07/20/2024 2:43 AM EST LABORATORY [facility] Comment:Results rechecked. Blood Venous blood specimen / Unknown Venipuncture / Unknown 07/19/2024 1:32 PM EST 07/19/2024 1:32 PM EST Narrative LABORATORY [facility] - 07/20/2024 2:43 AM EST Anticoagulation may affect testing. Refer to [employer] Test Catalog for a list of effects. Bahman Brandon MD LAB BLOOD ORDERABLES Final Res ult Performing Organization Address [facility] de Phone Number LABORATORY [facility] [address] [place] [address] * FACTOR VIII (8) CLOTTING ACTIVITY (07/19/2024 1:32 PM EST) Factor VIII (8) Clotting Activity 138 55 - 145 % 07/20/2024 10:51 AM EST LABORATORY [facility] Blood Venous blood specimen / Unknown Venipuncture / Unknown 07/19/2024 1:32 PM EST 07/19/2024 1:32 PM EST Bahman Brandon MD LAB BLOOD ORDERABLES Final Res ult Performing Organization Address [facility] de Phone Number LABORATORY [facility] [address] [place] [address] documented in this encounter Visit Diagnoses Diagnosis Bleeding diathesis (HCC)- Primary Unspecified hemorrhagic conditions documented in this encounter Advance Directives Documents on File Type Date Recorded Patient Curing Supervisor Expl anation Advance Directives and Living Will [...] 1:06 PM 01/16/2008 7:05 PM Care Teams Vascular Surgery Physician Relationship Specialty Start Date End Date Ruth Brandon MD [address] [place] [address] PCP - General Internal Medicine 04/25/21 documented as of this encounter
--- OUTSIDE RECORDS SUMMARY | 2024-07-24 23:49 | External Medical Summary | Summary of Care ---
Author Name Unknown Organization [facility] Address [address] [place] [address] Phone [phone] Care Team Providers Care Assistant Professor Name Role Phone Ruth Brandon MD Primary Care Provider + Reason for Visit * Reason Onset Date Comments Outpatient Testing 07/19/2024 Encounter Details Date Type Department Care Team (Late st Contact Info) Description 07/19/2024 Telephone Hematology/Oncology Treatment, [place] [address] [place] [address] Bahman Brandon MD [address] [place] [address] Outpatient Testing Allergies Active Allergy Reactions Criticality [...] aorta 06/23/2023 Atherosclerosis of coronary artery of [place] heart without angina pectoris 06/23/2023 Atrial thrombus [...] HX OF BREAST MALIGNANCY - ri ght, [id number], 200702/26/2011 10/04/2013 Polyneuropathy in other dise ases [...] mRNA, LNP-s, No Pre serve, 2-Dose Series ([employer]) 07/19/2021,11/06/2020,10/11/2020 COVID-19, LNP-s, No Preserve , Sony-sucrose, Ages 12+ ([employer]) 12/27/2021 COVID-19, MRNA-LNP, 24-25, P R, 30MCG/0.3ML, IM, 12YRS AND ABOVE (BioPro [employer]aceuticalTouristR) 04/28/2024 COVID-19, MRNA-LNP, PF, 30 M CG/0.3 mL, 12 YRS AND ABOVE, IM (PneumRx) 07/13/2023 Covid-19, Mrna, Lnp-s, Pf, B ivalent, 30 Mcg, IM, 12 yrs and above ([employer]) 07/17/2022 Influenza, Whole Virus 09/15/1985 Pneumococcal Conjugate [...] encounter Miscellaneous Notes * Telephone Encounter - Bahman Brandon MD - 07/22/2024 8:15 AM EST I am waiting for the vitamin K level result. Hopefully we should be able to get a next few days, I would like to see her in the clinic next week. * Telephone Encounter - Yumiko Tomlinson RN - 07/22/2024 8:[address] Brandon: all labs have resulted. When would you like to see patient to discuss results? * Telephone Encounter - Yumiko Tomlinson RN - 07/21/2024 8:02 AM EST Factor X still in process. * Telephone Encounter - Yumiko Tomlinson RN - 07/19/2024 2:30 PM EST [...] 08/02/2024 10:20 AM EST Office Visit Podiatry [facility] [address] [facility] [place] [address] Nicki Gomez DPM [address] [place] [address] 08/23/2024 1:10 PM EST Laboratory Laboratory, [facility] [address] [place] [address] YanezCandice broussard [facility] [address] [place] [address] 10/03/2024 3:00 PM EST Office Visit Cardiology, [facility] [address] [place] [address] Rashmi Graham PA-C [address] [place] [address] 10/04/2024 3:00 PM EST Office Visit General Internal Medicine [facility] [address] [facility] [place] [address] Ruth Brandon MD [address] [facility] [place] [address] 11/22/2024 2:00 PM EDT Office Visit Cardiology, [facility] [address] [facility] [place] [address] Rashmi Graham PA-C [address] [place] [address] 04/28/2025 1:40 PM EDT Office Visit Rheumatology [address] [place] [address] Sergio Coughlin MD [facility] [employer] [place], [place] [address] Scheduled Procedures Name Priority Associated Diagnoses Date/Ti [...] D LEVEL ONCE IN A LIFETIME-USE SMARTSET# 00808 Completed 06/08/2024, 04/20/2024, 02/10/2023, Additional history exists [...] this encounter Medical Devices Implanted Type Area Spanish Moss Picker Device Identifier Shelf Expiration Date Model / Serial / Lot Port 6fr Chronoflex [id number] - [id number] Implanted:Qty: 1 on 02/22/2008 at OR [facility] Left: Chest CR BARD : ACCESS SYSTEMS [id number] / / [id number] documented as of this encounter Advance Directives Documents on File Type Date Recorded Patient Drier Take Off Tender Expl anation Advance Directives and Living Will [...] 1:06 PM 01/16/2008 7:05 PM Care Teams Assistant Professor Relationship Specialty Start Date End Date Ruth Brandon MD 200 [place] [address] PCP - General Internal Medicine 04/25/21 documented as of this encounter
--- OUTSIDE RECORDS SUMMARY | 2024-07-24 23:49 | External Medical Summary | Summary of Care ---
Author Name Unknown Organization [facility] Address [address] [place] [address] Phone [phone] Care Team Providers Care Bellmaker Name Role Phone Ruth Brandon MD Primary Care Provider + Reason for Visit * Reason Onset Date Comments Test Results 07/21/2024 Encounter Details Date Type Department Care Team (Late st Contact Info) Description 07/21/2024 Telephone Cardiology, [facility] [place] [id number] Ramsey Gonsalez MD 132 [facility] [place] [address] Test Results Allergies Active Allergy Reactions Criticality Noted Date Comments Adhesive Tape Other (Please comment) 01/24/2008 Welts, blisters Bee Stings 02/14/2003 Bee Venom Hives 10/17/2019 Iodine Hives 10/17/2019 Ivp Dye 01/10/1998 hives documented as of this encounter (statuses as of 07/21/2024) Medications VITAMIN B-6 100 MG PO TABS [...] as of this encounter (statuses as of 07/21/2024) Active Problems Problem Noted Date Diagnosed Date [...] as of this encounter (statuses as of 07/21/2024) Resolved Problems Problem Noted Date Diagnosed Date [...] HX OF BREAST MALIGNANCY - ri ght, [id number], 200702/26/2011 10/04/2013 Polyneuropathy in other dise ases [...] as of this encounter (statuses as of 07/21/2024) Immunizations Name Administration Dates Next Due COVID-19 mRNA, LNP-s, No Pre serve, 2-Dose Series ([employer]) 07/19/2021,11/06/2020,10/11/2020 COVID-19, LNP-s, No Preserve , Sony-sucrose, Ages 12+ ([employer]) 12/27/2021 COVID-19, MRNA-LNP, 24-25, P R, 30MCG/0.3ML, IM, 12YRS AND ABOVE ([employer]iderThefuture.fm) 04/28/2024 COVID-19, MRNA-LNP, PF, 30 M CG/0.3 mL, 12 YRS AND ABOVE, IM (CHARMS PPEC) 07/13/2023 Covid-19, Mrna, Lnp-s, Pf, B ivalent, 30 Mcg, IM, 12 yrs and above (L[employer]ista) 07/17/2022 Pneumococcal Conjugate Vacc, 13 Valent (Prevnar) [...] An Ann RN documented in this encounter Miscellaneous Notes * Telephone Encounter - Tricia Terrell LPN - 07/21/2024 2:24 PM EST Mychart message sent. * Telephone Encounter - Tricia Terrell LPN - 07/21/2024 2:24 PM EST ----- Message from Ramsey Gonsalez MD sent at 07/21/2024 2:00 PM EST ----- Thyroid function okay documented in this encounter Plan of Treatment Upcoming Encounters Date Type Department Care Team (Late st Contact Info) Description 08/02/2024 10:20 AM EST Office Visit Podiatry [facility] [address] [place] [address] Nicki Gomez DPM [address] [place] [address] 08/23/2024 1:10 PM EST Laboratory Laboratory, [facility] [address] [facility] [place] [phone] [facility] [address] [facility] [place] [address] 10/03/2024 3:00 PM EST Office Visit Cardiology, [facility] [place] [address] Rashmi Graham PA-C [address] [place] [address] 10/04/2024 3:00 PM EST Office Visit General Internal [facility] [address] [place] [address] Ruth Brandon MD [address] [facility] [place] [address] 11/22/2024 2:00 PM EDT Office Visit Cardiology, [facility] [address] [place] [address] Rashmi Graham PA-C [address] [place] [address] 04/28/2025 1:40 PM EDT Office Visit Rheumatology [facility] [address] [place] [address] Sergio Coughlin MD [address] [employer] [place] [address] Scheduled Procedures Name Priority Associated Diagnoses Date/Ti [...] 01/12/2024, 09/17/19 23 Albumin/Creatinine Ratio 05/06/2025 05/06/2022, 11/0 01/2017 GFR 06/14/2025 06/14/2024, 05/18, 05/24/2024, Additional [...] D LEVEL ONCE IN A LIFETIME-USE SMARTSET# 75051 Completed 06/08/2024, 04/20/2024, 02/10/2023, Additional history exists [...] encounter Medical Devices Implanted Type Area Dry House Operator Device Identifier Shelf Expiration Date Model / Serial / Lot Port 6fr Chronoflex [id number] - [id number] Implanted:Qty: 1 on 02/22/2008 at [place] [facility] Left: Chest CR BARD : ACCESS SYSTEMS [id number] / / [id number] documented as of this encounter Advance Directives Documents on File Type Date Recorded Patient Medical Office Administrator Expl anation Advance Directives and Living Will [...] 1:06 PM 01/16/2008 7:05 PM Care Teams Bellmaker Relationship Specialty Start Date End Date Ruth Brandon MD 200 [place] [address] PCP - General Internal Medicine 04/25/21 documented as of this encounter
--- OUTSIDE RECORDS SUMMARY | 2024-07-24 23:49 | External Medical Summary | Summary of Care ---
Author Name Unknown Organization [facility] Address [address] [place] [address] Phone [phone] Care Team Providers Care Histologic Technician Name Role Phone Ruth Brandon MD Primary Care Provider + Reason for Visit * Reason Onset Date Comments Outpatient Testing 07/19/2024 Encounter Details Date Type Department Care Team (Late st Contact Info) Description 07/19/2024 Telephone Hematology/Oncology Treatment, [place] [address] [place] [address] Bahman Brandon MD [address] [place] [address] Outpatient Testing Allergies Active Allergy Reactions Criticality [...] of coronary artery of [place] heart without angina pectoris 06/23/2023 Atrial thrombus [...] HX OF BREAST MALIGNANCY - ri ght, [id number], 200702/26/2011 10/04/2013 Polyneuropathy in other dise ases [...] mRNA, LNP-s, No Pre serve, 2-Dose Series ([employer]) 07/19/2021,11/06/2020,10/11/2020 COVID-19, LNP-s, No Preserve , Sony-sucrose, Ages 12+ ([employer]) 12/27/2021 COVID-19, MRNA-LNP, 24-25, P R, 30MCG/0.3ML, IM, 12YRS AND ABOVE ([employer]ono [employer]iWelcome) 04/28/2024 COVID-19, MRNA-LNP, PF, 30 M CG/0.3 mL, 12 YRS AND ABOVE, IM (Threadflip) 07/13/2023 Covid-19, Mrna, Lnp-s, Pf, B ivalent, 30 Mcg, IM, 12 yrs and above ([employer]) 07/17/2022 Influenza, Whole Virus 09/15/1985 Pneumococcal Conjugate [...] encounter Miscellaneous Notes * Telephone Encounter - Yumiko Tomlinson RN - 07/22/2024 8:[address] Brandon: all labs have resulted. When would you like to see patient to discuss results? * Telephone Encounter - Yumiko Tomlinson RN - 07/21/2024 8:02 AM EST Factor X still in process. * Telephone Encounter - Yumiko Tomilnson RN - 07/19/2024 2:30 PM EST Received [...] 08/02/2024 10:20 AM EST Office Visit Podiatry [facility] 132 [facility] [place] [address] Nicki Gomez DPM [address] [facility] [place] [address] 08/23/2024 1:10 PM EST Laboratory Laboratory, [facility] 132 [facility] [place] [phone] Candice Yane[place] 132 [facility] [place] [address] 10/03/2024 3:00 PM EST Office Visit Cardiology, [facility] [address] [place] [address] Rashmi Graham PA-C [address] [place] [address] 10/04/2024 3:00 PM EST Office Visit General Internal Medicine [facility] [address] [place] [address] Ruth Brandon MD [address] [facility] [place] [address] 11/22/2024 2:00 PM EDT Office Visit Cardiology, [facility] [address] [place] [address] Rashmi Graham PA-C [address] [place] [address] 04/28/2025 1:40 PM EDT Office Visit Rheumatology [place] [address] [place] [address] Sergio Coughlin MD [address] [employer] [place] [address] Scheduled Procedures Name Priority Associated Diagnoses Date/Ti [...] D LEVEL ONCE IN A LIFETIME-USE SMARTSET# [id number] Completed 06/08/2024, 04/20/2024, 02/10/2023, Additional history exists [...] this encounter Medical Devices Implanted Type Area Stitch Bonder Machine Operator Helper Device Identifier Shelf Expiration Date Model / Serial / Lot Port 6fr Chronoflex [id number] - [id number] Implanted:Qty: 1 on 02/22/2008 [place] [facility] [place] Left: Chest CR BARD : ACCESS SYSTEMS [id number] / / [id number] documented as of this encounter Advance Directives Documents on File Type Date Recorded Patient Contact Centre Supervisor Expl anation Advance Directives and Living [...] 1:06 PM 01/16/2008 7:05 PM Care Teams Histologic Technician Relationship Specialty Start Date End Date Ruth Brandon MD [address] [facility] [place] [place] [address] PCP - General Internal Medicine 04/25/21 documented as of this encounter
--- OUTSIDE RECORDS SUMMARY | 2024-07-24 23:49 | External Medical Summary | Summary of Care ---
Author Name Unknown Organization [facility] Address [address] [place] [address] Phone [phone] Care Team Providers Care Topology Professor Name Role Phone Ruth Brandon MD Primary Care Provider + Reason for Visit * Reason Onset Date Comments Outpatient Testing 07/19/2024 Encounter Details Date Type Department Care Team (Late st Contact Info) Description 07/19/2024 Telephone Hematology/Oncology Treatment, [place] [address] [place] [address] Bahman Brandon MD 200 [place] [address] Outpatient Testing Allergies Active Allergy Reactions Criticality Noted Date Comments Adhesive Tape Other (Please comment) 01/24/2008 Welts, blisters Bee Stings 02/14/2003 Bee Venom Hives 10/17/2019 Iodine Hives 10/17/2019 Ivp Dye 01/10/1998 hives documented as of this encounter (statuses as of 07/19/2024) Medications VITAMIN B-6 100 MG PO TABS [...] DAY OR OTHER MEDICATIONS 100 Tablet 2 04/11/2024 1:06 PM EDT 01/04/20 24 Active Amiodarone HCl 200 MG [...] as of this encounter (statuses as of 07/19/2024) Active Problems Problem Noted Date Diagnosed Date SDH (subdural hematoma) 05/25/2024 PAF (paroxysmal atrial fibrillation) 05/24/2024 Chronic anticoagulation 05/24/2024 Acute blood loss anemia 05/24/2024 AVM (arteriovenous malformat ion) of stomach, acquired with hemorrhage 05/24/2024 Nonischemic cardiomyopathy 03/17/2024 Chronic atrial fibrillation 12/29/2023 Atherosclerosis of aorta 06/23/2023 Atherosclerosis of coronary artery of [place] heart without angina pectoris 06/23/2023 Atrial thrombus [...] as of this encounter (statuses as of 07/19/2024) Resolved Problems Problem Noted Date Diagnosed Date [...] HX OF BREAST MALIGNANCY - ri ght, [id number], 200702/26/2011 10/04/2013 Polyneuropathy in other dise ases [...] as of this encounter (statuses as of 07/19/2024) Immunizations Name Administration Dates Next Due COVID-19 mRNA, LNP-s, No Pre serve, 2-Dose Series ([employer]) 07/19/2021,11/06/2020,10/11/2020 COVID-19, LNP-s, No Preserve , Sony-sucrose, Ages 12+ ([employer]) 12/27/2021 COVID-19, MRNA-LNP, 24-25, P R, 30MCG/0.3ML, IM, 12YRS AND ABOVE ([employer]eno [employer]) 04/28/2024 COVID-19, MRNA-LNP, PF, 30 M CG/0.3 mL, 12 YRS AND ABOVE, IM (Chromo[employer]ek) 07/13/2023 Covid-19, Mrna, Lnp-s, Pf, B ivalent, 30 Mcg, IM, 12 yrs and above (CallVU) 07/17/2022 Pneumococcal Conjugate Vacc, 13 Valent (Prevnar) [...] 08/02/2024 10:20 AM EST Office Visit Podiatry [facility] [address] [place] [address] Nicki Gomez DPM [address] [place] [address] 10/03/2024 3:00 PM EST Office Visit Cardiology, [facility] [address] [place] [address] Rashmi Graham PA-C [address] [place] [address] 10/04/2024 3:00 PM EST Office Visit General Internal Medicine [facility] [address] [place] [address] Ruth Brandon MD [address] [facility] [place] [address] 11/22/2024 2:00 PM EDT Office Visit Cardiology, [facility] [address] [place] [address] Rashmi Graham PA-C [address] [place] [address] 04/28/2025 1:40 PM EDT Office Visit Rheumatology [address] [place] [address] Sergio Coughlin MD [address] [facility], [place] [address] Scheduled Procedures Name Priority Associated Diagnoses Date/Ti [...] D LEVEL ONCE IN A LIFETIME-USE SMARTSET# [id number] Completed 06/08/2024, 04/20/2024, 02/10/2023, Additional history exists [...] this encounter Medical Devices Implanted Type Area Crepe Box Tender Device Identifier Shelf Expiration Date Model / Serial / Lot Port 6fr Chronoflex [id number] - [id number] Implanted:Qty: 1 on 02/22/2008 at OR [facility] Left: Chest CR BARD : ACCESS SYSTEMS [id number] / / [id number] documented as of this encounter Advance Directives Documents on File Type Date Recorded Patient Chamber Magistrate Expl anation Advance Directives and Living Will [...] 1:06 PM 01/16/2008 7:05 PM Care Teams Topology Professor Relationship Specialty Start Date End Date Ruth Brandon MD [address] [place] [address] PCP - General Internal Medicine 04/25/21 documented as of this encounter
--- OUTSIDE RECORDS SUMMARY | 2024-07-24 23:49 | External Medical Summary | Summary of Care ---
Author Name Unknown Organization [facility] Address [address] [place] [address] Phone [phone] Care Team Providers Care Seam Hammerer Name Role Phone Ruth Brandon MD Primary Care Provider + Reason for Visit * Reason Onset Date Comments Outpatient Testing 07/19/2024 Encounter Details Date Type Department Care Team (Late st Contact Info) Description 07/19/2024 Telephone Hematology/Oncology Treatment, [place] [address] [place] [address] Bahman Brandon MD 200 [place] [address] Outpatient Testing Allergies Active Allergy Reactions Criticality [...] aorta 06/23/2023 Atherosclerosis of coronary artery of [place] heart without angina pectoris 06/23/2023 Atrial thrombus [...] HX OF BREAST MALIGNANCY - ri ght, [id number], 200702/26/2011 10/04/2013 Polyneuropathy in other dise ases [...] mRNA, LNP-s, No Pre serve, 2-Dose Series ([employer]) 07/19/2021,11/06/2020,10/11/2020 COVID-19, LNP-s, No Preserve , Sony-sucrose, Ages 12+ ([employer]) 12/27/2021 COVID-19, MRNA-LNP, 24-25, P R, 30MCG/0.3ML, IM, 12YRS AND ABOVE (GoPlanit-En[employer]x TherapeuticsirnatShenzhen MR Photoelectricity) 04/28/2024 COVID-19, MRNA-LNP, PF, 30 M CG/0.3 mL, 12 YRS AND ABOVE, IM (QuandoraComirnatShenzhen MR Photoelectricity) 07/13/2023 Covid-19, Mrna, Lnp-s, Pf, B ivalent, 30 Mcg, IM, 12 yrs and above ([employer]) 07/17/2022 Influenza, Whole Virus 09/15/1985 Pneumococcal Conjugate [...] encounter Miscellaneous Notes * Telephone Encounter - Tushar Tomlinson RN [...] 08/02/2024 10:20 AM EST Office Visit Podiatry [facility] [address] [place] [address] Nicki Gomez DPM [address] [place] [address] 08/23/2024 1:10 PM EST Laboratory Laboratory, [facility] [address] [place] [phone] Candice Yanez [facility] [place] [address] 10/03/2024 3:00 PM EST Office Visit Cardiology, [facility] [address] [place] [address] Rashmi Graham PA-C [address] [place] [address] 10/04/2024 3:00 PM EST Office Visit General Internal Medicine [facility] [address] [place] [address] Ruth Brandon MD [address] [place] [address] 11/22/2024 2:00 PM EDT Office Visit Cardiology, [facility] [address] [place] [address] Rashmi Graham PA-C [address] [place] [address] 04/28/2025 1:40 PM EDT Office Visit Rheumatology [facility] [address] [employer] [place] [address] Sergio Coughlin MD [address] [employer] [place] [address] Scheduled Orders Name Type Priority Associated Diagnoses [...] D LEVEL ONCE IN A LIFETIME-USE SMARTSET# [id number] Completed 06/08/2024, 04/20/2024, 02/10/2023, Additional history exists [...] this encounter Medical Devices Implanted Type Area Fuel Cell Systems Engineer Device Identifier Shelf Expiration Date Model / Serial / Lot Port 6fr Chronoflex [id number] - [id number] Implanted:Qty: 1 on 02/22/2008 at [place] [facility] Left: Chest CR BARD : ACCESS SYSTEMS [id number] / / [id number] documented as of this encounter Visit Diagnoses Diagnosis Bleeding diathesis (HCC)- Primary Unspecified hemorrhagic conditions documented in this encounter Advance Directives Documents on File Type Date Recorded Patient Submarine Worker Expl anation Advance Directives and Living Will [...] 1:06 PM 01/16/2008 7:05 PM Care Teams Seam Hammerer Relationship Specialty Start Date End Date Ruth Brandon MD [address] [place] [address] PCP - General Internal Medicine 04/25/21 documented as of this encounter
--- OUTSIDE RECORDS SUMMARY | 2024-07-24 23:49 | External Medical Summary | Summary of Care ---
Author Name Unknown Organization [facility] Address [address] [place] [address] Phone [phone] Care Team Providers Care Pipeline Executive Name Role Phone Ruth Brandon MD Primary Care Provider + Reason for Visit * Reason Comments NEW PATIENT * Evaluate & Treat - Unlimited Visits (Within 30 days (routine)) - Authorized Specialty Diagnoses / Procedures Referred By Valeria t Referred To Contact Hematology/Oncology / Hematology Oncology Diagnoses Iron deficiency anemia, unspecified iron deficiency anemia type Ruth Brandon MD [address] [place] [address] Phone: tel: fax: Referral ID Status Reason Start Date Expiration Date Visits Requested Visits Authorized [id number] Authorized Specialty Services Required [phone] Encounter Details Date Type Department Care Team (Late st Contact Info) Description 07/19/2024 12:15 PM EST Office Visit Hematology/Oncology [place] [facility] Gutierrez [address] [phone] Bahman Brandon MD [address] [address] Bleeding diathesis (HCC)* Allergies Active Allergy Reactions Criticality Noted Date Comments Adhesive Tape Other (Please comment) 01/24/2008 Welts, blisters Bee Stings 02/14/2003 Bee Venom Hives 10/17/2019 Iodine Hives 10/17/2019 Ivp Dye 01/10/1998 hives documented as of this encounter (statuses as of 07/20/2024) Medications VITAMIN B-6 100 MG PO TABS [...] as of this encounter (statuses as of 07/20/2024) Active Problems Problem Noted Date Diagnosed Date SDH (subdural hematoma) 05/25/2024 PAF (paroxysmal atrial fibrillation) 05/24/2024 Chronic anticoagulation 05/24/2024 Acute blood loss anemia 05/24/2024 AVM (arteriovenous malformat ion) of stomach, acquired with hemorrhage 05/24/2024 Nonischemic cardiomyopathy 03/17/2024 Chronic atrial fibrillation 12/29/2023 Atherosclerosis of aorta 06/23/2023 Atherosclerosis of coronary artery of [place] heart without angina pectoris 06/23/2023 Atrial thrombus [...] as of this encounter (statuses as of 07/20/2024) Resolved Problems Problem Noted Date Diagnosed Date [...] HX OF BREAST MALIGNANCY - ri ght, [id number], 200702/26/2011 10/04/2013 Polyneuropathy in other dise ases [...] as of this encounter (statuses as of 07/20/2024) Immunizations Name Administration Dates Next Due COVID-19 mRNA, LNP-s, No Pre serve, 2-Dose Series (Life[employer]) 07/19/2021,11/06/2020,10/11/2020 COVID-19, LNP-s, No Preserve , Sony-sucrose, Ages 12+ (Lifeenergy) 12/27/2021 COVID-19, MRNA-LNP, 24-25, P R, 30MCG/0.3ML, IM, 12YRS AND ABOVE (Cater[employer]ow) 04/28/2024 COVID-19, MRNA-LNP, PF, 30 M CG/0.3 mL, 12 YRS AND ABOVE, IM (Epochir[employer]Seldar [employer]arma) 07/13/2023 Covid-19, Mrna, Lnp-s, Pf, B ivalent, 30 Mcg, IM, 12 yrs and above (Life[employer]) 07/17/2022 Pneumococcal Conjugate Vacc, 13 Valent (Prevnar) [...] EST Hematology/Oncology Outpatient Consult Note Viki Jamison [address] [place] [address] EDUARDA DUKES MR # [id number] :1945 79-year-old female, REASON FOR CONSULTATION: Consultation [...] stool, blacktongue, she was then referred to [facility] ER where she was admitted. - I [...] mass effect. She was then transferred at [facility] where she was managed conservatively. History of right atrial thrombus, she had echocardiogram during the hospitalization, there was no evidence of thrombus noted in the atrium. She received additional blood transfusion while she was admitted at [facility]. She was followed by Neurosurgery team, [...] involving the right thigh, she was seenat [facility] ER on 07/03/2024. -PT was over 90 [...] cardiomyopathy, -S/P pacemaker ICD placement 2017 at [facility] -congestive heart failure. -chronic left bundle-branch block. -pacemaker lead thrombus/right atrial thrombus. ( 09/2022) -hypothyroidism -history of right breast cancer, S/P mastectomy, chemotherapy and radiation treatment. - atrial fibrillation with rapid ventricular rate causing shortness of breath and admission at [facility] in December 2023 INTERVAL HISTORY: She has [...] performed by Uma Lin DO at ENDOSCOPY [facility], path showsshort segment Barretts esophagitis repeat in 1 year Barretts esophagus 04/05/2013 UPPER GI ENDOSCOPY DIAGNOSTIC performed by Uma Lin DO at ENDOSCOPY [facility], inflammation consistent with long segment barretts, repeat [...] OPEN performed by SRIKANTH NÚÑEZ at OR [facility] CATHETERIZE LEFT HEART THRU SKIN 06/2000 Cardiac Catheterization, Left Heart COLONOSCOPY 1989 - COLONOSCOPY, DIAGNOSTIC (RECTUM) 01/30/09 repeat 10 yrs COLONOSCOPY, DIAGNOSTIC (RECTUM) 11/25/2018 diverticulosis, repeat 10 yrs/[facility] DILATION AND CURETTAGE (D&C) D&C Dr Ward EGD, FLEXIBLE, DIAGNOSTIC 03/09/2012 UPPER GI ENDOSCOPY DIAGNOSTIC performed by Uma Lin DO at ENDOSCOPY [facility], path showsshort segment Barretts esophagitis repeat in 1 year EGD, FLEXIBLE, DIAGNOSTIC 04/05/2013 UPPER GI ENDOSCOPY DIAGNOSTIC performed by Uma Lin DO at ENDOSCOPY [facility], inflammation consistent with long segment barretts, repeat egd in 3 years EGD, FLEXIBLE, DIAGNOSTIC 07/08/2016 Barretts, repeat 3 yrs/[facility] INSER TUNN ACC DEV;5 YRS/OLDER 02/22/08 INSERT TUNNELED CENTRAL VENOUS ACCESS WITH SUBQ PORT performed by SRIKANTH NÚÑEZ at OR [facility] LEFT VENTRICULAR PACING ELECTRODE, ADD-ON Left 08/25/2017 CS LEAD PLACEMENT WITH INITIAL DEVICE performed by Kamryn Espinoza DO at CARDIAC LABS [facility] LIGATE/CUT OVIDUCT(S) MASTECTOMY, SIMPLE, COMPLETE 01/14/08 MASTECTOMY SIMPLE COMPLETE performed by SRIKANTH NÚÑEZ at [facility] THORACOSTOMY TUBE W/ WATER SEAL 02/23/2008 TRANSLUM BALLOON ANGIOPLASTY OPEN/PERC W/IMAGE 1ST VEIN 08/25/2017 ANGIOPLASTY (EXCEPT DIALYSIS CIRCUIT) performed by Kamryn Espinoza DO at CARDIAC LABS [facility] VENOGRAM EXTREMITY UNI-FLUOR 08/25/2017 IMAGING SUPERVISION & INTERPRETATION EXTREMITY VEIN performed by Kamryn Espinoza DO at CARDIAC LABS 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 [facility] [facility] is a way you can talk to [...] Office Visit Podiatry [facility] [address] [facility] [place] [address] Nicki Gomez DPM [address] [facility] [place] [address] 08/23/2024 1:10 PM EST Laboratory Laboratory, [facility] [address] [place] [phone] Candice Yanez [address] [place] [address] 10/03/2024 3:00 PM EST Office Visit Cardiology, [facility] [address] [place] [address] Rashmi Graham PA-C [address] [place] [address] 10/04/2024 3:00 PM EST Office Visit General Internal Medicine [facility] [address] [facility] [place], [place] [address] Ruth Brandon MD [address] [facility] [place], [place] [address] 11/22/2024 2:00 PM EDT Office Visit Cardiology, [facility] [address] [place] [address] Rashmi Graham PA-C [address] [place] [address] 04/28/2025 1:40 PM EDT Office Visit Rheumatology [place] [address] [place] [address] Sergio Coughlin MD [facility] [place] [address] Pending Results Name Type Priority Associated Diagnoses Date /Time FACTOR X (10) CLOTTING ACTIVITY Lab Routine Bleeding diathesis (HCC) 07/19/2024 1:32 PM EST Scheduled Orders Name Type Priority Associated Diagnoses Orde r Schedule FACTOR X (10) CLOTTING ACTIVITY Lab Routine Bleeding diathesis (HCC) Expected: 07/19/2024, Expires: 07/19/2025 VITAMIN K Lab Routine Bleeding diathesis (HCC) [...] D LEVEL ONCE IN A LIFETIME-USE SMARTSET# [id number] Completed 06/08/2024, 04/20/2024, 02/10/2023, Additional history exists [...] this encounter Medical Devices Implanted Type Area Truck Trailer Final Inspector Device Identifier Shelf Expiration Date Model / Serial / Lot Port 6fr Chronoflex [id number] - [id number] Implanted:Qty: 1 on 02/22/2008 at OR [facility] Left: Chest CR BARD : ACCESS SYSTEMS [id number] / / [id number] documented as of this encounter Procedures Procedure [...] - 15.2 seconds 07/19/2024 2:17 PM EST [facility] 56- Comment:Results rechecked. INR >9.0(HH) 0.8 - 1.2 07/19/2024 2:17 PM EST [facility] 56- Comment:Results rechecked. Blood Venous blood specimen / Unknown Venipuncture / Unknown 07/19/2024 1:34 PM EST 07/19/2024 1:34 PM EST Narrative [facility] 56-02 - 07/19/2024 2:17 PM EST Warfarin Therapy INR: 2.0-3.0 conventional anticoagulation INR: 2.5-3.5 high intensity anticoagulation us Bahman Brandon MD LAB BLOOD ORDERABLES Final Res ult [facility] 56- [address] [place] [address] * (ABNORMAL) FACTOR VII (7) CLOTTING ACTIVITY (07/19/2024 1:32 PM EST) Factor VII (7) Clotting Activity <4(L) 65 - 135 % 07/20/2024 10:57 AM EST LABORATORY [facility] Blood Venous blood specimen / Unknown Venipuncture / Unknown 07/19/2024 1:32 PM EST 07/19/2024 1:32 PM EST Bahman Brandon MD LAB BLOOD ORDERABLES Final Res ult Performing Organization Address [facility] Co de Phone Number LABORATORY [facility] [address] [place] [address] * THROMBIN TIME (07/19/2024 1:32 PM EST) Thrombin Time 17.1 14.7 - 19.6 seconds 07/20/2024 10:13 AM EST LABORATORY [facility] Blood Venous blood specimen / Unknown Venipuncture / Unknown 07/19/2024 1:32 PM EST 07/19/2024 1:32 PM EST Bahman Brandon MD LAB BLOOD ORDERABLES Final Res ult Performing Organization Address [facility] Phone Number LABORATORY [facility] [address] [place] [address] * FIBRINOGEN (07/19/2024 1:32 PM EST) Fibrinogen 458 178 - 467 mg/dL 07/20/2024 2:21 AM EST LABORATORY [facility] Blood Venous blood specimen / Unknown Venipuncture / Unknown 07/19/2024 1:32 PM EST 07/19/2024 1:32 PM EST Bahman Brandon MD LAB BLOOD ORDERABLES Final Res ult Performing Organization Address [facility] de Phone Number LABORATORY [facility] [address] [place] [address] * (ABNORMAL) APTT (07/19/2024 1:32 PM EST) aPTT 99(H) 21 - 38 seconds 07/20/2024 2:43 AM EST LABORATORY [facility] Comment:Results rechecked. Blood Venous blood specimen / Unknown Venipuncture / Unknown 07/19/2024 1:32 PM EST 07/19/2024 1:32 PM EST Narrative LABORATORY [facility] - 07/20/2024 2:43 AM EST Anticoagulation may affect testing. Refer to [employer] Test Catalog for a list of effects. Bahman Brandon MD LAB BLOOD ORDERABLES Final Res ult Performing Organization Address City/[facility]/ZIP Co de Phone Number LABORATORY [facility] [address] [place] [address] * FACTOR VIII (8) CLOTTING ACTIVITY (07/19/2024 1:32 PM EST) Factor VIII (8) Clotting Activity 138 55 - 145 % 07/20/2024 10:51 AM EST LABORATORY [facility] Blood Venous blood specimen / Unknown Venipuncture / Unknown 07/19/2024 1:32 PM EST 07/19/2024 1:32 PM EST us Bahman Brandon MD LAB BLOOD ORDERABLES Final Res ult Performing Organization Address [facility] Co de Phone Number LABORATORY [address] [address] documented in this encounter Visit Diagnoses Diagnosis Bleeding diathesis (HCC)- Primary Unspecified hemorrhagic conditions documented in this encounter Advance Directives Documents on File Type Date Recorded Patient Abnormal Psychology Teacher Expl anation Advance Directives and Living [...] 1:06 PM 01/16/2008 7:05 PM Care Teams Pipeline Executive Relationship Specialty Start Date End Date Ruth Brandon MD [address] [place], [place] [address]johnnie [place] [address] PCP - General Internal Medicine 04/25/21 documented as of this encounter
--- OUTSIDE RECORDS SUMMARY | 2024-07-24 23:49 | External Medical Summary | Summary of Care ---
Author Name Unknown Organization [facility] Address [address] [place] [address] Phone [phone] Care Team Providers Care Electronic Security Specialist Name Role Phone Ruth Brandon MD Primary Care Provider + Reason for Visit * Reason Onset Date Comments Outpatient Testing 07/19/2024 Encounter Details Date Type Department Care Team (Late st Contact Info) Description 07/19/2024 Telephone Hematology/Oncology Treatment, [place] [address] [place] [address] Bahman Brandon MD [address] [place] [address] Outpatient Testing Allergies Active Allergy Reactions Criticality [...] Atherosclerosis of coronary artery of [place] heart without angina pectoris 06/23/2023 Atrial thrombus [...] HX OF BREAST MALIGNANCY - ri ght, [id number], 200702/26/2011 10/04/2013 Polyneuropathy in other dise ases [...] mRNA, LNP-s, No Pre serve, 2-Dose Series ([employer]) 07/19/2021,11/06/2020,10/11/2020 COVID-19, LNP-s, No Preserve , Sony-sucrose, Ages 12+ ([employer]) 12/27/2021 COVID-19, MRNA-LNP, 24-25, P R, 30MCG/0.3ML, IM, 12YRS AND ABOVE ([employer]) 04/28/2024 COVID-19, MRNA-LNP, PF, 30 M CG/0.3 mL, 12 YRS AND ABOVE, IM (Vapotherm) 07/13/2023 Covid-19, Mrna, Lnp-s, Pf, B ivalent, 30 Mcg, IM, 12 yrs and above ([employer]) 07/17/2022 Influenza, Whole Virus 09/15/1985 Pneumococcal [...] encounter Miscellaneous Notes * Addendum Note - Tushar Tomlinson RN [...] 08/02/2024 10:20 AM EST Office Visit Podiatry [facility] [address] [place] [address] Nicki Gomez DPM [address] [place] [address] 08/23/2024 1:10 PM EST Laboratory Laboratory, [facility] [address] [facility] [place] [phone] [facility] [address] [facility] [place] [address] 10/03/2024 3:00 PM EST Office Visit Cardiology, [facility] [address] [facility] [place] [address] Rashmi Graham PA-C [address] [place] [address] 10/04/2024 3:00 PM EST Office Visit General Internal Medicine [facility] [address] [place] [address] Ruth Brandon MD [address] [place] [address] 11/22/2024 2:00 PM EDT Office Visit Cardiology, [facility] [address] [facility] [place] [address] Rashmi Graham PA-C [address] [place] [address] 04/28/2025 1:40 PM EDT Office Visit Rheumatology [facility] [address] [place] [address] Sergio Coughlin MD [address] [place] [address] Scheduled Orders Name Type Priority Associated Diagnoses [...] D LEVEL ONCE IN A LIFETIME-USE SMARTSET# [id number] Completed 06/08/2024, 04/20/2024, 02/10/2023, Additional history exists [...] this encounter Medical Devices Implanted Type Area Hydroelectric Station Operator Chief Device Identifier Shelf Expiration Date Model / Serial / Lot Port 6fr Chronoflex [id number] - [id number] Implanted:Qty: 1 on 02/22/2008 at [place] [facility] Left: Chest CR BARD : ACCESS SYSTEMS [id number] / / [id number] documented as of this encounter Visit Diagnoses Diagnosis Bleeding diathesis (HCC)- Primary Unspecified hemorrhagic conditions documented in this encounter Advance Directives Documents on File Type Date Recorded Patient Hogshead Liner Expl anation Advance Directives and Living Will [...] 1:06 PM 01/16/2008 7:05 PM Care Teams Electronic Security Specialist Relationship Specialty Start Date End Date Ruth Brandon MD [address] [place] [address] PCP - General Internal Medicine 04/25/21 documented as of this encounter
--- OUTSIDE RECORDS SUMMARY | 2024-07-24 23:49 | External Medical Summary | Summary of Care ---
Author Name Unknown Organization [facility] Address [address] [place] [address] Phone [phone] Care Team Providers Care Sole Cementer Name Role Phone Ruth Brandno MD Primary Care Provider + Reason for Visit * Reason Onset Date Comments Outpatient Testing 07/19/2024 Encounter Details Date Type Department Care Team (Late st Contact Info) Description 07/19/2024 Telephone Hematology/Oncology Treatment, [place] [address] [place] [address] Bahman Brandon MD [address] [place] [address] Outpatient Testing Allergies Active Allergy Reactions Criticality [...] aorta 06/23/2023 Atherosclerosis of coronary artery of [place] heart without angina pectoris 06/23/2023 Atrial thrombus [...] HX OF BREAST MALIGNANCY - ri ght, [id number], 200702/26/2011 10/04/2013 Polyneuropathy in other dise ases [...] mRNA, LNP-s, No Pre serve, 2-Dose Series ([employer]) 07/19/2021,11/06/2020,10/11/2020 COVID-19, LNP-s, No Preserve , Sony-sucrose, Ages 12+ ([employer]) 12/27/2021 COVID-19, MRNA-LNP, 24-25, P R, 30MCG/0.3ML, IM, 12YRS AND ABOVE ([employer]ar) 04/28/2024 COVID-19, MRNA-LNP, PF, 30 M CG/0.3 mL, 12 YRS AND ABOVE, IM ([employer]) 07/13/2023 Covid-19, Mrna, Lnp-s, Pf, B ivalent, 30 Mcg, IM, 12 yrs and above ([employer]) 07/17/2022 Influenza, Whole Virus 09/15/1985 Pneumococcal Conjugate [...] of Assessment Author No 05/23/2024 10:36 PM nA Ann RN * Because of a physical, [...] AM EST Office Visit Podiatry [facility] [address] [place] [address] Nicki Gomez DPM [address] [place] [address] 08/23/2024 1:10 PM EST Laboratory Laboratory, [facility] [address] [place] [phone] YanezCandice broussard [facility] [place] [address] 10/03/2024 3:00 PM EST Office Visit Cardiology, [facility] [address] [place] [address] Rashmi Graham PA-C [address] [place] [address] 10/04/2024 3:00 PM EST Office Visit General Internal Medicine [facility] [address] [facility] [place], [place] [address] Ruth Brandon MD [address] [facility] [place] [address] 11/22/2024 2:00 PM EDT Office Visit Cardiology, [facility] [address] [place] [address] Rashmi Graham PA-C [address] [place] [address] 04/28/2025 1:40 PM EDT Office Visit Rheumatology [facility] [address] [place] [address] Sergio Coughlin MD [address] [place] [address] Scheduled Procedures Name Priority Associated Diagnoses Date/Ti [...] D LEVEL ONCE IN A LIFETIME-USE SMARTSET# [id number] Completed 06/08/2024, 04/20/2024, 02/10/2023, Additional history exists [...] this encounter Medical Devices Implanted Type Area Polishing Machine Operator Helper Device Identifier Shelf Expiration Date Model / Serial / Lot Port 6fr Chronoflex [id number] - [id number] Implanted:Qty: 1 on 02/22/2008 at [place] [facility] Left: Chest CR BARD : ACCESS SYSTEMS [id number] / / [id number] documented as of this encounter Advance Directives Documents on File Type Date Recorded Patient Concrete Wall Grinder Operator Expl anation Advance Directives and Living [...] 1:06 PM 01/16/2008 7:05 PM Care Teams Sole Cementer Relationship Specialty Start Date End Date Ruth Brandon MD [address] [place] [address], [place] [address] PCP - General Internal Medicine 04/25/21 documented as of this encounter
--- OUTSIDE RECORDS SUMMARY | 2024-07-24 23:50 | External Medical Summary | Summary of Care ---
Author Name Unknown Organization [facility] Address [address] [place] [address] Phone [phone] Care Team Providers Care Vibratory Pile Driver Name Role Phone Ruth Brandon MD Primary Care Provider + Encounter Details Date Type Department Care Team (Late st Contact Info) Description 07/08/2024 Telephone Hematology/Oncology [facility] [place] [address] [facility] [phone] Services, Scheduling [address] [place] [address] Allergies Active Allergy Reactions Criticality Noted Date Comments Adhesive Tape Other (Please comment) 01/24/2008 Welts, blisters Bee Stings 02/14/2003 Bee Venom Hives 10/17/2019 Iodine Hives 10/17/2019 Ivp Dye 01/10/1998 hives documented as of this encounter (statuses as of 07/13/2024) Medications VITAMIN B-6 100 MG PO TABS [...] ALTERNATIVE DAYS IF NEEDED 90 Tablet 3 04/19/2024 3:54 PM EDT 07/27/20 23 Active Triamcinolone Acetonide 0.1 % [...] 90 Tablet 3 06/16/20 24 025 Active documented as of this encounter (statuses as of 07/13/2024) Active Problems Problem Noted Date Diagnosed Date SDH (subdural hematoma) 05/25/2024 PAF (paroxysmal atrial fibrillation) 05/24/2024 Chronic anticoagulation 05/24/2024 Acute blood loss anemia 05/24/2024 AVM (arteriovenous malformat ion) of stomach, acquired with hemorrhage 05/24/2024 Nonischemic cardiomyopathy 03/17/2024 Chronic atrial fibrillation 12/29/2023 Atherosclerosis of aorta 06/23/2023 Atherosclerosis of coronary artery of [place] heart without angina pectoris 06/23/2023 Atrial thrombus [...] as of this encounter (statuses as of 07/13/2024) Resolved Problems Problem Noted Date Diagnosed Date [...] HX OF BREAST MALIGNANCY - ri ght, [id number], 200702/26/2011 10/04/2013 Polyneuropathy in other dise ases [...] as of this encounter (statuses as of 07/13/2024) Immunizations Name Administration Dates Next Due COVID-19 mRNA, LNP-s, No Pre serve, 2-Dose Series (Selatra) 07/19/2021,11/06/2020,10/11/2020 COVID-19, LNP-s, No Preserve , Sony-sucrose, Ages 12+ (Selatra) 12/27/2021 COVID-19, MRNA-LNP, 24-25, P R, 30MCG/0.3ML, IM, 12YRS AND ABOVE ([facility]) 04/28/2024 COVID-19, MRNA-LNP, PF, 30 M CG/0.3 mL, 12 YRS AND ABOVE, IM ([employer] [facility] [facility]) 07/13/2023 Covid-19, Mrna, Lnp-s, Pf, B ivalent, 30 Mcg, IM, 12 yrs and above (Selatra) 07/17/2022 Influenza, Whole Virus 09/15/1985 Pneumococcal Conjugate [...] of Assessment Author No 05/23/2024 10:36 PM EDAn La RN * Do you have serious difficulty [...] Telephone Encounter - Yumiko Tomlinson RN - 07/13/2024 7:43 AM EST Patient scheduled to see Dr Brandon 07/19. Waiting to see if reclast should be rescheduled. * Telephone Encounter - Yumiko Tomlinson RN - 07/11/2024 9:31 AM EST Per [facility] discharge summary, patient recently admitted with anemia from GI bleed, on coumadin- recommended that she see hematology. She had reclast ordered 04/20/[address] Coughlin, this has been rescheduled several times due to admissions. Scheduling: please follow up with patient to schedue new hematology appt, must be with MD Dr Coughlin: are you ok with reclast being rescheduled? * Telephone Encounter - Cait Schwartz OSA - 07/11/2024 9:11 AM EST Is this ok to reschedule ( the tx) And what about provider apt? She doesn't see any providers currently in Hem onc She is scheduled for PCP apt for a HD apt * Telephone Encounter - Rachael Marcial LPN - 07/09/2024 11:28 AM EST Eduarda will also need a hospital discharge follow-up appointment scheduled with hematology. She discharged from [facility] on 07/07/24. * Telephone Encounter - Linette Guerra OSA - 07/08/2024 4:16 PM EST Eduarda called needing to r/s her infusion on 07/11 Please call her back thank you documented in this encounter Plan of Treatment Upcoming Encounters Date Type Department Care Team (Late st Contact Info) Description 07/19/2024 12:15 PM EST Office Visit Hematology/Oncology [facility] [address] [facility] [place] [phone] Bahman Brandon MD [address] [place] [address] 08/02/2024 10:20 AM EST Office Visit [facility] [address] [place] [address] Nicki Gomez DPM [address] [place] [address] 10/03/2024 3:00 PM EST Office Visit Cardiology, [facility] [address] [place] [address] Rashmi Graham PA-C [address] [place] [address] 10/04/2024 3:00 PM EST Office Visit General Internal Medicine [facility] [address] [place] [address] Ruth Brandon MD [address] [facility] [place] [address] 11/22/2024 2:00 PM EDT Office Visit Cardiology, [facility] [address] [place] [address] Rashmi Graham PA-C [address] [place] [address] 04/28/2025 1:40 PM EDT Office Visit Rheumatology [address] [place] [address] Sergio Coughlin MD [facility] [place] [address] Scheduled Procedures Name Priority Associated Diagnoses Date/Ti [...] Zoster Vaccines Completed 01/15/2019, 0 02/2018, 04/02/2011 Influenza Vaccine (FLU shot) Completed 07/2024, 04/28/2024, 05/14/2023, Additional history exists VITAMIN D LEVEL ONCE IN A LIFETIME-USE SMARTSET# 31511 Completed 06/08/2024, 04/20/2024, 02/10/2023, Additional history exists [...] this encounter Medical Devices Implanted Type Area Mechanical Test Engineer Device Identifier Shelf Expiration Date Model / Serial / Lot Port 6fr Chronoflex [id number] - [id number] Implanted:Qty: 1 on 02/22/2008 [place] [facility] [place] Chest CR BARD : ACCESS SYSTEMS [id number] / / [id number] documented as of this encounter Advance Directives Documents on File Type Date Recorded Patient Account Relationship Manager Expl anation Advance Directives and Living Will [...] 1:06 PM 01/16/2008 7:05 PM Care Teams Vibratory Pile Driver Relationship Specialty Start Date End Date Ruth Brandon MD [address] [place] [address] PCP - General Internal Medicine 04/25/21 documented as of this encounter
--- OUTSIDE RECORDS SUMMARY | 2024-07-24 23:50 | External Medical Summary ---
Author Name Unknown Address Unknown Organization K09:[facility] [place] [address] Laboratory Report Ordering Provider Test Date Status MICHA ERIC 07/19/2024 13:34:16 Final Warfarin Therapy
INR: 2 .0-3.0 conventional anticoagulation
INR: 2.5- 3.5 high intensity anticoagulation Observation Date Value Abnormality Reference (Units ) Status PT 07/19/2024 13:34:16 >70.0 Above high normal 11 .6-15.2 (seconds) Final Results rechecked. INR 07/19/2024 13:34:16 >9.0 Above upper panic li mits 0.8-1.2 Final Results rechecked. Performing Location [facility] [place] [address]
--- OUTSIDE RECORDS SUMMARY | 2024-07-24 23:50 | External Medical Summary ---
Author Name Unknown Address Unknown Organization K01:[facility] - [address] [place] [address] Laboratory Report Ordering Provider Test Date Status MICHA ERIC 07/19/2024 13:32:49 Final Observation Date Value Abnormality Reference (Units ) Status Factor VIII Activity 07/19/2024 13:32:49 138 55-145 (%) Final Performing Location [facility] - [address] [place] [address]
--- OUTSIDE RECORDS SUMMARY | 2024-07-24 23:50 | External Medical Summary | Summary of Care ---
Author Name Unknown Organization [facility] Address [address] [place] [address] Phone [phone] Care Team Providers Care Analysis Evaluator Name Role Phone Ruth Brandon MD Primary Care Provider + Reason for Visit * Reason Comments Medication Refill Encounter Details Date Type Department Care Team (Late st Contact Info) Description 07/16/2024 Refill Cardiology, [facility] [address] [facility] [place] [phone] Debi Fuentes MD [address] [facility] [place] [phone] Hypothyroidism; Idiopathic cardiomyopathy (HCC); Presence of automatic cardioverter/defibrillator (AICD) Allergies Active Allergy Reactions Criticality Noted Date Comments Adhesive Tape Other (Please comment) 01/24/2008 Welts, blisters Bee Stings 02/14/2003 Bee Venom Hives 10/17/2019 Iodine Hives 10/17/2019 Ivp Dye 01/10/1998 hives documented as of this encounter (statuses as of 07/18/2024) Medications VITAMIN B-6 100 MG PO TABS [...] MOUTH TWICE A DAY 200 Tablet 3 4 1:47 PM EST 08/12/20 23 024 Active Metoprolol Succinate ER 25 MG Oral Tablet Extended Release 24 Hour (toPROL XL)Indications:Idi opathic cardiomyopathy (HCC),Chronic systolic congestive heart failure, NYHA class 2 (HCC),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) Take 1 Tablet by mouth in the morning. 100 Tablet 3 4 1:14 PM EDT 01/01/20 24 Active Levothyroxine Sodium 25 MCG Oral Tablet (Levoxyl)Indicatio ns:Other specified hypothyroidism TAKE ONE TABLET BY MOUTH DAILY AT LEAST 30 MINUTES PRIOR TO FIRST MEAL OF THE DAY OR OTHER MEDICATIONS 100 Tablet 2 4 1:06 PM EDT 01/04/20 24 Active Amiodarone HCl 200 MG Oral Tablet (Cordarone) Take one-half Tablet by mouth in the morning. 50 Tablet 3 05/12/20 24 Active Pantoprazole Sodium 40 MG Oral Tablet Delayed Release (Protonix) Take 1 Tablet by mouth in the morning and 1 Tablet before bedtime. 60 Tablet 4 1:47 PM EDT 05/24/20 24 Active traZODone HCl 50 MG Oral Tablet (Desyrel)Indicatio ns:Insomnia, unspecified type Take 1 Tablet by mouth at bedtime. 30 Tablet 3 05/30/20 24 Active Additional Information Patient not taking.Reported on 07/12/2024 Apixaban 5 MG Oral Tablet (Eliquis) Take 1 Tablet by mouth in the morning and 1 Tablet before bedtime. 180 Tablet 3 4 3:46 PM EDT 06/14/20 Active Additional Information [...] ALTERNATIVE DAYS IF NEEDED 90 Tablet 3 07/18/20 24 Active Furosemide 20 MG Oral Tablet (Lasix)Indications :Hypothyroidism,Id iopathic cardiomyopathy (HCC),Presence of automatic cardioverter/defib rillator (AICD) TAKE ONE TABLET BY MOUTH EVERY DAY 5 DAYS PER WEEK, WITH AN EXTRA TABLET ON ALTERNATIVE DAYS IF NEEDED 90 Tablet 3 4 3:54 PM EDT 07/27/20 024 Discontin ued(Refil l) documented as of this encounter (statuses as of 07/18/2024) Active Problems Problem Noted Date Diagnosed Date SDH (subdural hematoma) 05/25/2024 PAF (paroxysmal atrial fibrillation) 05/24/2024 Chronic anticoagulation 05/24/2024 Acute blood loss anemia 05/24/2024 AVM (arteriovenous malformat ion) of stomach, acquired with hemorrhage 05/24/2024 Nonischemic cardiomyopathy 03/17/2024 Chronic atrial fibrillation 12/29/2023 Atherosclerosis of aorta 06/23/2023 Atherosclerosis of coronary artery of [place] heart without angina pectoris 06/23/2023 Atrial thrombus [...] as of this encounter (statuses as of 07/18/2024) Resolved Problems Problem Noted Date Diagnosed Date [...] 01/04/2013 017 [facility] [id number], 200702/26/2011 10/04/2013 Polyneuropathy in other dise ases [...] as of this encounter (statuses as of 07/18/2024) Immunizations Name Administration Dates Next Due COVID-19 mRNA, LNP-s, No Pre serve, 2-Dose Series ([employer]) 07/19/2021,11/06/2020,10/11/2020 COVID-19, LNP-s, No Preserve , Sony-sucrose, Ages 12+ ([employer]) 12/27/2021 COVID-19, MRNA-LNP, 24-25, P R, 30MCG/0.3ML, IM, 12YRS AND ABOVE ([employer]) 04/28/2024 COVID-19, MRNA-LNP, PF, 30 M CG/0.3 mL, 12 YRS AND ABOVE, IM ([employer]) 07/13/2023 Covid-19, Mrna, Lnp-s, Pf, B ivalent, 30 Mcg, IM, 12 yrs and above ([employer]) 07/17/2022 Pneumococcal Conjugate Vacc, 13 Valent (Prevnar) [...] 10:36 PM JOYT An Moeller RN * Do you have difficulty dressing [...] 10:36 PM EDT An Moeller RN documented as of this encounter Mental Status * Because of a physical, mental, or emotional condition, do you have serious difficulty concentrating, remembering, or making decisions? (5 years old or older) Answer Entry Date Author No 05/23/2024 10:36 PM EDT An Moeller RN documented in this encounter Miscellaneous Notes * Telephone Encounter - Lizy Ortiz RPh - 07/18/2024 3:48 PM ESTSigned Prescriptions: Disp Refills Furosemide 20 MG Oral Tablet (Lasix) 90 Tab*3 Sig: TAKE ONE TABLET BY MOUTH EVERY DAY 5 DAYS PER WEEK, WITH AN EXTRA TABLET ON ALTERNATIVE DAYS IF NEEDEDAuthorizingProvider: DEBI FUENTES User: LIZY ORTIZ documented in this encounter Plan of Treatment Upcoming Encounters Date Type Department Care Team (Late st Contact Info) Description 07/19/2024 12:15 PM EST Office Visit Hematology/Oncology [facility] [address] [facility] [place] [phone] Bahman Brandon MD 200 [place] [address] 08/02/2024 10:20 AM EST Office Visit Podiatry [facility] [address] [place] [address] Nicki Gomez DPM [address] [place] [address] 10/03/2024 3:00 PM EST Office Visit Cardiology, [facility] [address] [place] [address] Rashmi Graham PA-C [address] [place] [address] 10/04/2024 3:00 PM EST Office Visit General Internal Medicine [facility] [address] [facility] [place] [address] Ruth Brandon MD [address] [facility] [place] [address] 11/22/2024 2:00 PM EDT Office Visit Cardiology, [facility] [address] [place] [address] Rashmi Graham PA-C [address] [place] [address] 04/28/2025 1:40 PM EDT Office Visit Rheumatology [facility] [address] [place] [address] Sergio Coughlin MD [address] [place] [address] Scheduled Procedures Name Priority Associated Diagnoses Date/Ti [...] D LEVEL ONCE IN A LIFETIME-USE SMARTSET# [id number] Completed 06/08/2024, 04/20/2024, 02/10/2023, Additional history exists [...] this encounter Medical Devices Implanted Type Area Insurance Writer Device Identifier Shelf Expiration Date Model / Serial / Lot Port 6fr Chronoflex [id number] - [id number] Implanted:Qty: 1 on 02/22/2008 at [place] [facility] [place] Left: Chest CR BARD : ACCESS SYSTEMS [id number] / / [id number] documented as of this encounter Visit Diagnoses Diagnosis Hypothyroidism Unspecified hypothyroidism Idiopathic cardiomyopathy (HCC) Other primary cardiomyopathies Presence of automatic cardioverter/defibrillator (AICD) Automatic implantable cardiac defibrillator in situ documented in this encounter Advance Directives Documents on File Type Date Recorded Patient Engine Cowling Installer Expl anation Advance Directives and Living Will [...] 1:06 PM 01/16/2008 7:05 PM Care Teams Analysis Evaluator Relationship Specialty Start Date End Date Ruth Brandon MD [address] [facility] [place] [address] PCP - General Internal Medicine 04/25/21 documented as of this encounter
--- OUTSIDE RECORDS SUMMARY | 2024-07-24 23:50 | External Medical Summary ---
Author Name Unknown Address Unknown Organization K01:[facility] - [address] [place] [address] Laboratory Report Ordering Provider Test Date Status ALFREDO CARRERA 07/19/2024 13:32:49 Final Observation Date Value Abnormality Reference (Units ) Status T4, Free 07/19/2024 13:32:49 1.4 0.9-1.7 (n g/dL) Final Performing Location [facility] - [address] [place] [address]
--- OUTSIDE RECORDS SUMMARY | 2024-07-24 23:50 | External Medical Summary ---
Author Name Unknown Address Unknown Organization K01:[facility] - [address] [place] [address] Laboratory Report Ordering Provider Test Date Status MICHA ERIC 07/19/2024 13:32:49 Final Anticoagulation may affect t esting. Refer to [employer] Education Test Catalog for a list of effects. Observation Date Value Abnormality Reference (Units ) Status PT 07/19/2024 13:32:49 >70.0 Above high normal 11.6-15.2 (seconds) Final PT, 0 Min 07/19/2024 13:32:49 14.9 (seconds) Final Prothrombin time (PT) factor substitution in Control Platelet poor plasma by Coagulation assay --1H post incubation with normal plasma 07/19/2024 13:32:49 15.2 (seconds) Final BALDEV INDEX, PROTIME 07/19/2024 13:32:49 <3.00 <15.00 (%) Final Baldev index suggestive of a factor deficiency. aPTT panel - Platelet poor plasma 07/19/2024 13:32:49 95 Above high normal 21-38 (s econds) Final aPTT, 0 Min 07/19/2024 13:32:49 31 (seconds ) Final aPTT, 60 Min 07/19/2024 13:32:49 31 (second s) Final BALDEV INDEX, APTT 07/19/2024 13:32:49 2.11 < 15.00 (%) Final Baldev index suggestive of a factor deficiency. Heparin, unfractionated level 07/19/2024 13:32:49 <0.10 <0.10 (IU/mL) Final Thrombin time 07/19/2024 13:32:49 17.5 14.7-1 9.6 (seconds) Final Direct thrombin inhibitor an d fibrinogen disorder not detected. Performing Location LABORATORY [facility] - [address] [place] [address]
--- OUTSIDE RECORDS SUMMARY | 2024-07-24 23:50 | External Medical Summary ---
Author Name Unknown Address Unknown Organization K01:[facility]ATORY [facility] - [address] [place] [address] Laboratory Report Ordering Provider Test Date Status MICHA ERIC 07/19/2024 13:32:49 Final Observation Date Value Abnormality Reference (Units ) Status Factor X Activity 07/19/2024 13:32:49 5 Below low no rmal 70-120 (%) Final Performing Location [facility] - [address] [place] [address]
--- OUTSIDE RECORDS SUMMARY | 2024-07-24 23:50 | External Medical Summary | Summary of Care ---
Author Name Unknown Organization [facility] Address [address] [place] [address] Phone [phone] Care Team Providers Care Fitter Helper Name Role Phone Ruth Brandon MD Primary Care Provider + Reason for Visit * Reason Comments Outpatient Testing Encounter Details Date Type Department Care Team (Late st Contact Info) Description 07/19/2024 1:30 PM EST Laboratory Laboratory [facility] [place] [address] [place] [phone] [facility] [address] [place] [address] Hypothyroidism; Bleeding diathesis (HCC) Allergies Active Allergy Reactions Criticality Noted [...] DAYS IF NEEDED 90 Tablet 3 07/18/20 Active documented as of this encounter [...] HX OF BREAST MALIGNANCY - ri ght, [id number], 200702/26/2011 10/04/2013 Polyneuropathy in other dise ases [...] mRNA, LNP-s, No Pre serve, 2-Dose Series ([employer]ist) 07/19/2021,11/06/2020,10/11/2020 COVID-19, LNP-s, No Preserve , Sony-sucrose, Ages 12+ (Event[employer]ist) 12/27/2021 COVID-19, MRNA-LNP, 24-25, P R, 30MCG/0.3ML, IM, 12YRS AND ABOVE ([employer])) 04/28/2024 COVID-19, MRNA-LNP, PF, 30 M CG/0.3 mL, 12 YRS AND ABOVE, IM (Innobits) 07/13/2023 Covid-19, Mrna, Lnp-s, Pf, B ivalent, 30 Mcg, IM, 12 yrs and above ([employer]ist) 07/17/2022 Pneumococcal Conjugate Vacc, 13 Valent (Prevnar) [...] An Ann RN documented in this encounter Plan of Treatment Upcoming Encounters Date Type Department Care Team (Late st Contact Info) Description 08/02/2024 10:20 AM EST Office Visit Podiatry [facility] [address] [place] [address] Nicki Gomez, HELLEN [address] [place] [address] 10/03/2024 3:00 PM EST Office Visit Cardiology, [facility] [address] [place] [address] Rashmi Graham PA-C [address] [place] [address] 10/04/2024 3:00 PM EST Office Visit General Internal Medicine [facility] [address] [facility] [place] [address] Ruth Brandon MD 200 [facility] [place] [address] 11/22/2024 2:00 PM EDT Office Visit Cardiology, [facility] [address] [place] [address] Rashmi Graham, KATHARINE [facility] [place] [address] 04/28/2025 1:40 PM EDT Office Visit Rheumatology [address] [place] [address] Sergio Coughlin MD [facility] [place] [address] Pending Results Name Type Priority Associated Diagnoses Date /Time TSH WITH FREE T4 IF INDICATED Lab Routine Hypothyroidism 07/19/2024 1:32 PM EST FACTOR VII (7) CLOTTING ACTIVITY Lab Routine Bleeding diathesis ([facility]) 07/19/2024 1:32 PM EST FACTOR X (10) CLOTTING ACTIVITY Lab Routine Bleeding diathesis ([facility]) 07/19/2024 1:32 PM EST Scheduled Procedures Name Priority Associated Diagnoses Date/Ti [...] D LEVEL ONCE IN A LIFETIME-USE SMARTSET# [id number] Completed 06/08/2024, 04/20/2024, 02/10/2023, Additional history exists [...] this encounter Medical Devices Implanted Type Area Studio Manager Device Identifier Shelf Expiration Date Model / Serial / Lot Port 6fr Chronoflex [id number] - [id number] Implanted:Qty: 1 on 02/22/2008 at [facility] Left: Chest CR BARD : ACCESS SYSTEMS [id number] / / [id number] documented as of this encounter Visit Diagnoses Diagnosis Hypothyroidism Unspecified hypothyroidism Bleeding diathesis (HCC) Unspecified hemorrhagic conditions documented in this encounter Advance Directives Documents on File Type Date Recorded Patient Electronic Warfare Officer Expl anation Advance Directives and Living Will [...] 1:06 PM 01/16/2008 7:05 PM Care Teams Fitter Helper Relationship Specialty Start Date End Date Ruth Brandon MD 200 [facility] [place] [address] PCP - General Internal Medicine 04/25/21 documented as of this encounter
--- OUTSIDE RECORDS SUMMARY | 2024-07-24 23:50 | External Medical Summary | Summary of Care ---
Author Name Unknown Organization [facility] Address [address] [place] [address] Phone [phone] Care Team Providers Care Seed Corn Manager Production Name Role Phone Ruth Brandon MD Primary Care Provider + Reason for Visit * Reason Onset Date Comments Advice 07/08/2024 Encounter Details Date Type Department Care Team (Late st Contact Info) Description 07/08/2024 Telephone Hematology/Oncology Shaheen Waller [place] [address] [facility] [address] Services, Scheduling [address] [place] [address] Advice Allergies Active Allergy Reactions Criticality Noted [...] aorta 06/23/2023 Atherosclerosis of coronary artery of nikolai heart without angina pectoris 06/23/2023 Atrial thrombus [...] HX OF BREAST MALIGNANCY - ri ght, [id number], 200702/26/2011 10/04/2013 Polyneuropathy in other dise ases [...] mRNA, LNP-s, No Pre serve, 2-Dose Series (Giftly) 07/19/2021,11/06/2020,10/11/2020 COVID-19, LNP-s, No Preserve , Sony-sucrose, Ages 12+ (Giftly) 12/27/2021 COVID-19, MRNA-LNP, 24-25, P R, 30MCG/0.3ML, IM, 12YRS AND ABOVE ([facility]) 04/28/2024 COVID-19, MRNA-LNP, PF, 30 M CG/0.3 mL, 12 YRS AND ABOVE, IM (TreeRing) 07/13/2023 Covid-19, Mrna, Lnp-s, Pf, B ivalent, 30 Mcg, IM, 12 yrs and above (Giftly) 07/17/2022 Influenza, Whole Virus 09/15/1985 Pneumococcal Conjugate [...] Encounter - Yumiko Tomlinson RN - 07/13/2024 2:56 PM EST [place] adjusted. Will postpone until August. * Addendum Note - Oc Stevens MD - 07/13/2024 2:38 PM ESTAddended by: OC STEVENS on: 07/13/2024 02:38 PM Modules accepted: Orders * Telephone Encounter - Oc Stevens MD - 07/13/2024 2:37 PM EST I spoke with Eduarda - she would like to schedule Reclast in August sometime. I am fine with that. Will update labs in the beginning of August once back we can arrange Reclast at that time. May need to get a new authorization. * Telephone Encounter - Yumiko Tomlinson RN - 07/13/2024 7:43 AM EST Patient scheduled to see Dr Brandon 07/19. Waiting to see if reclast should be rescheduled. * Telephone Encounter - Yumiko Tomlinson RN - 07/11/2024 9:31 AM EST Per [facility] discharge summary, patient recently admitted with anemia from GI bleed, on coumadin- recommended that she see hematology. She had reclast ordered 04/20/[address] Stevens, this has been rescheduled several times due to admissions. Scheduling: please follow up with patient to schedue new hematology appt, must be with MD Dr Stevens: are you ok with reclast being rescheduled? [...] appointment scheduled with hematology. She discharged from [facility] on 07/07/24. * Telephone Encounter - Linette Guerra OSA - 07/08/2024 4:16 PM EST Eduarda called needing to r/s her infusion on 07/11 Please call her back thank you documented in this encounter Plan of Treatment Upcoming Encounters Date Type Department Care Team (Late st Contact Info) Description 07/19/2024 12:15 PM EST Office Visit Hematology/Oncology [facility] [address] [place] [address] Bahman Brandon MD 200 [facility] [place] [address] 08/02/2024 10:20 AM EST Office Visit Podiatry [facility] [address] [facility] [place] [address] Nicki Gomez DPM [address] [place] [address] 10/03/2024 3:00 PM EST [facility] [address] [place] [address] Rashmi Graham PA-C [address] [place] [address] 10/04/2024 3:00 PM EST Office Visit General Internal Medicine [facility] 200 [facility] [place] [address] Ruth Brandon MD 200 [facility] [place] [address] 11/22/2024 2:00 PM EDT Office Visit Cardiology, [facility] [address] [place] [address] Rashmi Graham PA-C [address] [place] [address] 04/28/2025 1:40 PM EDT Office Visit Rheumatology [place] [id number] [place], [place] [address] Oc Stevens MD [facility] [employer] [place], [place] [address] Scheduled Orders Name Type Priority Associated Diagnoses Orde r Schedule CREATININE Lab Routine Senile osteoporosis Expected: 08/26/2024 (Approximate), Expires: 07/17/2025 CALCIUM Lab Routine Senile osteoporosis Expected: 08/26/2024 (Approximate), Expires: 07/17/2025 25-HYDROXY VITAMIN D Lab Routine Senile osteoporosis Expected: 08/26/2024 (Approximate), Expires: 07/17/2025 Scheduled Procedures Name Priority Associated Diagnoses Date/Ti [...] D LEVEL ONCE IN A LIFETIME-USE SMARTSET# 19817 Completed 06/08/2024, 04/20/2024, 02/10/2023, Additional history exists [...] this encounter Medical Devices Implanted Type Area Grain Farmworker Device Identifier Shelf Expiration Date Model / Serial / Lot Port 6fr Chronoflex [id number] - [id number] Implanted:Qty: 1 on 02/22/2008 at OR [facility] [place] Left: Chest CR BARD : ACCESS SYSTEMS [id number] / / [id number] documented as of this encounter Visit Diagnoses Diagnosis Senile osteoporosis- Primary documented in this encounter Advance Directives Documents on File Type Date Recorded Patient Refined Syrup Operator Expl anation Advance Directives and Living [...] 1:06 PM 01/16/2008 7:05 PM Care Teams Seed Corn Manager Production Relationship Specialty Start Date End Date Ruth Brandon MD 200 [place] [address] PCP - General Internal Medicine 04/25/21 documented as of this encounter
--- OUTSIDE RECORDS SUMMARY | 2024-07-24 23:50 | External Medical Summary ---
Author Name Unknown Address Unknown Organization K01:[facility] [place] [address] [place] [address] Laboratory Report Ordering Provider Test Date Status MICHA ERIC 07/19/2024 13:32:49 Final Observation Date Value Abnormality Reference (Units ) Status Coagulation factor VII activity actual/normal in Platelet poor plasma by Coagulation assay 07/19/2024 13:32:49 <4 Below low normal 65-135 (%) Final Performing Location [facility] [place] [address] [place] [address]
--- OUTSIDE RECORDS SUMMARY | 2024-07-24 23:50 | External Medical Summary | Summary of Care ---
Author Name Unknown Organization [facility] Address [address] [place] [address] Phone [phone] Care Team Providers Care Picker Name Role Phone Ruth Brandon MD Primary Care Provider + Reason for Visit * Reason Onset Date Comments Advice 07/08/2024 Encounter Details Date Type Department Care Team (Late st Contact Info) Description 07/08/2024 Telephone Hematology/Oncology Shaheen Waller [place] [address] [facility] [address] Services, Scheduling [address] [place] [address] Advice Allergies Active Allergy Reactions Criticality Noted [...] aorta 06/23/2023 Atherosclerosis of coronary artery of makah heart without angina pectoris 06/23/2023 Atrial thrombus [...] HX OF BREAST MALIGNANCY - ri ght, [id number], 200702/26/2011 10/04/2013 Polyneuropathy in other dise ases [...] mRNA, LNP-s, No Pre serve, 2-Dose Series (Mobifusion) 07/19/2021,11/06/2020,10/11/2020 COVID-19, LNP-s, No Preserve , Sony-sucrose, Ages 12+ (Mobifusion) 12/27/2021 COVID-19, MRNA-LNP, 24-25, P R, 30MCG/0.3ML, IM, 12YRS AND ABOVE ([facility] 04/28/2024 COVID-19, MRNA-LNP, PF, 30 M CG/0.3 mL, 12 YRS AND ABOVE, IM (Telinet) 07/13/2023 Covid-19, Mrna, Lnp-s, Pf, B ivalent, 30 Mcg, IM, 12 yrs and above (Mobifusion) 07/17/2022 Influenza, Whole Virus 09/15/1985 Pneumococcal Conjugate [...] - 07/11/2024 9:31 AM EST Per [facility] discharge summary, patient recently admitted with anemia [...] scheduled with hematology. She discharged from [facility] on 07/07/24. * Telephone Encounter - Linette Guerra OSA - 07/08/2024 4:16 PM EST Eduarda called needing to r/s her infusion on 07/11 Please call her back thank you documented in this encounter Plan of Treatment Upcoming Encounters Date Type Department Care Team (Late st Contact Info) Description 07/19/2024 12:15 PM EST Office Visit Hematology/Oncology [facility] 200 [facility] [place] [address] Bahman Brandon MD 200 [facility] [place] [address] 08/02/2024 10:20 AM EST Office Visit Podiatry [facility] [address] [place] [address] Nicki Gomez DPM [address] [place] [address] 10/03/2024 3:00 PM EST Office Visit Cardiology, [facility] [address] [place] [address] Rashmi Graham PA-C [address] [place] [address] 10/04/2024 3:00 PM EST Office Visit General Internal Medicine [facility] [address] [place] [address] Ruth Brandon MD 200 [facility] [place], [place] [address] 11/22/2024 2:00 PM EDT Office Visit Cardiology, [facility] [address] [place] [address] Rashmi Graham PA-C [address] [place] [address] 04/28/2025 1:40 PM EDT Office Visit Rheumatology [facility] [address] [place], [place] [address] Oc Stevens MD [address] [place], [place] [address] Scheduled Orders Name Type Priority Associated Diagnoses [...] D LEVEL ONCE IN A LIFETIME-USE SMARTSET# 42825 Completed 06/08/2024, 04/20/2024, 02/10/2023, Additional history exists [...] encounter Medical Devices Implanted Type Area Director Economic Device Identifier Shelf Expiration Date Model / Serial / Lot Port 6fr Chronoflex [id number] - [id number] Implanted:Qty: 1 on 02/22/2008 at OR [facility] [place] Left: Chest CR BARD : ACCESS SYSTEMS [id number] / / [id number] documented as of this encounter Visit Diagnoses Diagnosis Senile osteoporosis- Primary documented in this encounter Advance Directives Documents on File Type Date Recorded Patient Virtual Assistant Expl anation Advance Directives and Living Will [...] 1:06 PM 01/16/2008 7:05 PM Care Teams Picker Relationship Specialty Start Date End Date Ruth Brandon MD 200 [place] [address] PCP - General Internal Medicine 04/25/21 documented as of this encounter
--- OUTSIDE RECORDS SUMMARY | 2024-07-24 23:50 | External Medical Summary ---
Author Name Unknown Address Unknown Organization K01:LAB[facility]ATORY [facility] [place] - [address] [place] [address] Laboratory Report Ordering Provider Test Date Status ALFREDO CARRERA 07/19/2024 13:32:49 Final Observation Date Value Abnormality Reference (Units ) Status TSH 07/19/2024 13:32:49 4.73 Above high normal 0. 27-4.20 (uIU/mL) Final Performing Location LAB[facility]ATORY [facility] - [address] [place] [address]
--- OUTSIDE RECORDS SUMMARY | 2024-07-24 23:50 | External Medical Summary ---
Author Name Unknown Address Unknown Organization K01:LABORATORY [facility] [place] - [address] [place] [address] Laboratory Report Ordering Provider Test Date Status MICHA ERIC 07/19/2024 13:32:49 Final Anticoagulation may affect t esting. Refer to [facility] Test Catalog for a list of effects. Observation Date Value Abnormality Reference (Units ) Status aPTT panel - Platelet poor plasma 07/19/2024 13:32:49 99 Above high normal 21-38 (seconds) Final Results rechecked. Performing Location LABORATORY [facility] [place] - [address] [place] [address]
--- OUTSIDE RECORDS SUMMARY | 2024-07-24 23:50 | External Medical Summary | Summary of Care ---
Author Name Unknown Organization [facility] Address [address] [place] [address] Phone [phone] Care Team Providers Care Od Grinder Operator Name Role Phone Ruth Brandon MD Primary Care Provider + Encounter Details Date Type Department Care Team (Late st Contact Info) Description 04/20/2024 Orders Only Rheumatology [facility] [address] [facility] [place] [address] Sergio Coughlin MD [facility] [place] [address] Allergies Active Allergy Reactions Criticality Noted Date Comments Adhesive Tape Other (Please comment) 01/24/2008 Welts, blisters Bee Stings 02/14/2003 Bee Venom Hives 10/17/2019 Iodine Hives 10/17/2019 Ivp Dye 01/10/1998 hives documented as of this encounter (statuses as of 07/15/2024) Medications VITAMIN B-6 100 MG PO TABS [...] capsules prior to appointment 4 Capsule 6 023 Active Furosemide 20 MG Oral Tablet (Lasix)Indicatio ns:Hypothyroidis m,Idiopathic cardiomyopathy (HCC),Presence of automatic cardioverter/def ibrillator (AICD) TAKE ONE TABLET BY MOUTH EVERY DAY 5 DAYS PER WEEK, WITH AN EXTRA TABLET ON ALTERNATIVE DAYS IF NEEDED 90 Tablet 3 04/19/20 24 3:54 PM EDT 023 Active Triamcinolone Acetonide 0.1 % External Cream (Aristocort)Winnie cations:Skin neoplasm,Pruritu s Apply to areas of itchy rash on back, arms, and neck twice daily 450 g 5 023 Active Entresto 24-26 MG Oral Tablet (sacubitril-vals ferny 24-26 mg per tab)Indications: Idiopathic cardiomyopathy (HCC),Chronic systolic congestive heart failure, NYHA class 2 (HCC) TAKE ONE TABLET BY MOUTH TWICE A DAY 200 Tablet 3 07/02/20 24 1:47 PM EST 023 2023 Active Metoprolol Succinate ER 25 MG Oral Tablet Extended Release 24 Hour (toPROL XL)Indications:I diopathic cardiomyopathy (HCC),Chronic systolic congestive heart failure, NYHA class 2 (HCC),Hypertensi ve heart disease with chronic systolic congestive heart failure (HCC) Take 1 Tablet by mouth in the morning. 100 Tablet 3 04/23/20 24 1:14 PM EDT 024 Active Levothyroxine Sodium 25 MCG Oral Tablet (Levoxyl)Indicat ions:Other specified hypothyroidism TAKE ONE TABLET BY MOUTH DAILY AT LEAST 30 MINUTES PRIOR TO FIRST MEAL OF THE DAY OR OTHER MEDICATIONS 100 Tablet 2 04/11/20 24 1:06 PM EDT 024 Active ASPIRIN 81 MG PO TABS Take 1 Tablet by mouth in the morning. 2023 Discontinued albuterol (VENTOLIN HFA) 108 (90 BASE) MCG/ACT inhalerIndicatio ns:Acute bronchitis, antibiotics not indicated Inhale 2 Puffs by mouth every 6 hours as needed for Wheezing. 3 Inhaler 1 018 2023 Discontinued( Medication List Clean Up) Rosuvastatin Calcium 10 MG Oral Tablet (Crestor)Indicat ions:Hypertensiv e heart disease with chronic systolic congestive heart failure (HCC) TAKE ONE TABLET BY MOUTH EVERY DAY IN THE MORNING 90 Tablet 3 05/31/20 24 5:20 PM EDT 024 2023 Discontinued( Refill) Warfarin Sodium 5 MG Oral Tablet (Coumadin)Indica tions:Atrial thrombus TAKE 1 TABLET BY MOUTH EVERY EVENING OR DIRECTED BY ANTICOAGULATION CLINIC 90 Tablet 3 04/16/20 24 10:45 AM EDT 024 2023 Discontinued Pantoprazole Sodium 40 MG Oral Tablet Delayed Release (Protonix) TAKE ONE TABLET BY MOUTH EVERY DAY 100 Tablet 2 03/04/20 24 12:27 PM EDT 024 2023 Discontinued Amiodarone HCl 200 MG Oral Tablet (Cordarone) Take 1 Tablet by mouth in the morning. 100 Tablet 3 04/26/20 24 2:18 PM EDT 024 2023 Discontinued Cefuroxime Axetil 500 MG Oral Tablet (Ceftin)Indicati ons:Acute non-recurrent frontal sinusitis Take 1 Tablet by mouth in the morning and 1 Tablet before bedtime. Do all this for 10 days. 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 06/23/2023 Atrial [...] as of this encounter (statuses as of 07/15/2024) Resolved Problems Problem Noted Date Diagnosed Date [...] HX OF BREAST MALIGNANCY - ri ght, [id number], 200702/26/2011 10/04/2013 Polyneuropathy in other dise ases [...] as of this encounter (statuses as of 07/15/2024) Immunizations Name Administration Dates Next Due COVID-19 mRNA, LNP-s, No Pre serve, 2-Dose Series (Cream.HR) 07/19/2021,11/06/2020,10/11/2020 COVID-19, LNP-s, No Preserve , Sony-sucrose, Ages 12+ (Pfizer) 12/27/2021 COVID-19, MRNA-LNP, PF, 30 M CG/0.3 mL, 12 YRS AND ABOVE, IM (bounce.io-Comnat) 07/13/2023 Covid-19, Mrna, Lnp-s, Pf, B ivalent, 30 Mcg, IM, 12 yrs and above (Cream.HR) 07/17/2022 Pneumococcal Conjugate Vacc, 13 Valent (Prevnar) 04/04/2015 Pneumococcal Polysaccharide PPV23 (Pneumovax) 09/28/2012,10/28/2006 Season Influenza, Quad, PF, Adjuvanted, 65+ Yrs, IM (FLUAD) 04/27/2020 Seasonal Influenza Vac., MDV , IM, 0.5 mL (Fluzone) 04/18/2014,04/30/2013,06/05/2012,04/18,05/28/2010,05/24/2008,06/17/20 07,06/27/2006 Seasonal Influenza, PF, 6 M & above, [...] ages 0-17 years) Not on file 02/02/2024 Comments No Sex and Gender Information Value [...] State Kaushik Gutierrez [address] [place] [address] Bahman Brandon MD [address] [place] [address] 08/02/2024 10:20 AM EST Office Visit Podiatry [facility] 132 [facility] [place] [address] Patricia Nicki Mariola, DPM 132 [facility] [place] [address] 10/03/2024 3:00 PM EST Office Visit Cardiology, [facility] 132 [facility] [place] [address] Rashmi Graham PA-C 132 [facility] [place] [address] 10/04/2024 3:00 PM EST Office Visit General Internal Medicine [facility] [address] [place] [address] Ruth Brandon MD [address] [facility] [place] [address] 11/22/2024 2:00 PM EDT Office Visit Cardiology, [facility] 132 [facility] [place] [address] Rashmi Graham PA-C 132 [facility] [place] [address] 04/28/2025 1:40 PM EDT Office Visit Rheumatology [address] [place] [address] Sergio Coughlin MD [address] [place] [address] [place] [address] Scheduled Procedures Name Priority Associated Diagnoses Date/Ti [...] D LEVEL ONCE IN A LIFETIME-USE SMARTSET# 20974 Completed 06/08/2024, 04/20/2024, 02/10/2023, Additional history exists [...] this encounter Medical Devices Implanted Type Area Missionary Coordinator Device Identifier Shelf Expiration Date Model / Serial / Lot Port 6fr Chronoflex [id number] - [id number] Implanted:Qty: 1 on 02/22/2008 at OR [facility] Left: Chest CR BARD : ACCESS SYSTEMS [id number] / / [id number] documented as of this encounter Advance Directives Documents on File Type Date Recorded 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
--- OUTSIDE RECORDS SUMMARY | 2024-07-24 23:50 | External Medical Summary ---
Author Name Unknown Address Unknown Organization K01:LAB[facility]ATORY [facility] - [address] [place] [address] Laboratory Report Ordering Provider Test Date Status MICHA ERIC 07/19/2024 13:32:49 Final Observation Date Value Abnormality Reference (Units ) Status Fibrinogen 07/19/2024 13:32:49 458 178-467 ( mg/dL) Final Performing Location LAB[facility]ATORY [facility] - [address] [place] [address]
--- OUTSIDE RECORDS SUMMARY | 2024-07-24 23:50 | External Medical Summary | Summary of Care ---
Author Name Unknown Organization [facility] Address [address] [place] [address] Phone [phone] Care Team Providers Care Hot Dipper Name Role Phone Ruth Brandon MD Primary Care Provider + Reason for Visit * Reason Onset Date Comments Referral 07/12/2024 SP 30-Day Encounter Details Date Type Department Care Team (Late st Contact Info) Description 07/12/2024 New Patient Triage (ELEVATOR ERECTOR HELPER USE ONLY) Hematology/Oncology [facility] [address] [facility] [address] Shonna Gayle CRNP [address] [facility] [place] [address] Referral (SP 30-Day) Allergies Active Allergy Reactions Criticality Noted Date [...] 60 Tablet 05/25/2024 1:47 PM EDT 05/24/20 Active traZODone HCl 50 MG Oral Tablet [...] 01/04/2013 017 HX OF BREAST MALIGNANCY - al ght, [id number], 200702/26/2011 10/04/2013 Polyneuropathy in other dise ases [...] mRNA, LNP-s, No Pre serve, 2-Dose Series ([employer]) 07/19/2021,11/06/2020,10/11/2020 COVID-19, LNP-s, No Preserve , Sony-sucrose, Ages 12+ ([employer]) 12/27/2021 COVID-19, MRNA-LNP, 24-25, P R, 30MCG/0.3ML, IM, 12YRS AND ABOVE ([employer]) 04/28/2024 COVID-19, MRNA-LNP, PF, 30 M CG/0.3 mL, 12 YRS AND ABOVE, IM ([employer]) 07/13/2023 Covid-19, Mrna, Lnp-s, Pf, B ivalent, 30 Mcg, IM, 12 yrs and above ([employer]) 07/17/2022 Influenza, Whole Virus 09/15/1985 Pneumococcal Conjugate [...] No 07/12/2024 Does the household have a [facility] source of income? (Household - for ages [...] documented in this encounter Progress Notes * Camryn Dale LPN - 07/13/2024 10:53 AM EST Discussed care plan with patient or proxy?: No Per provider message below. New patient triage is not needed. Additional imaging needed: No Additional imaging orders pended: No Further labs recommended and ordered: No Bone Marrow biopsy recommended:No [facility] clinic review recommended: No * Shonna Gayle CRNP - 07/12/2024 3:06 PM EST Patient already scheduled. Reviewed with Dr. Brandon. Would like to evaluate patient in office beforeordering further lab work up. No triage needed. * Rashmi Merritt OSA - 07/12/2024 2:41 PM EST Pt returned call stating she was told to call clinic back and schedule new patient appt with Dr. Brandon; did not get the name of the original caller; Pt scheduled for 07/19 at 12:[address] Brandon. * Rashmi Merritt OSA - 07/12/2024 2:41 PM EST * Camryn Dale LPN - 07/12/2024 12:43 PM EST New Patient Triage What is the diagnosis/reason for referral?: Unspecified SABAS Enter order ID here: [id number] Specialty specific documentation: Hematology/Oncology NEW PATIENT - HEMATOLOGY/ONCOLOGY SPECIALTY TRIAGE Triage needed?: Yes Referring provider name: Dr. Ruth Brandon MD Confirmation of diagnosis: No TRIAGE PLAN: Baseline/staging imaging complete: Yes See Media Transferred Records: 07/07/2024 Nuclear Medicine Report page: 15 CT Scan: page 24 Labs available: Yes Pages: 10, 21, 28-58 Referral to other specialty recommended (ie. Surgery, outpatient infusion): No Additional triage comments: [facility] Progress Notes: Page 8, Ed Note: page 16 See Office visit, Dr. Ruth Brandon, today 07/12/2024 Per referral comment: "Pt with hx of nonischemic cardiomyopathy, paroxysmal afib, CHF Echo 2022 demonstrating thrombus in the right atrium , was put on warfarin which eventually got resolved but pt was on warferin until 05/2024 when she had subdural hematoma, Gi bleed and was switched to Eliquis last month by dr. Gonsalez. Pt states she was on Eliquis for around 10 days and ended up having GI bleed, related anemia, received 2 PRBC, had subconjuctival haemorage, epistaxis. Pt had INR around 9 and elevated PTT. Currently off anticoagulation. Please eval for recurrent supra therapeutic INR, prolong PTT. Thanks" documented in this encounter Plan of Treatment Upcoming Encounters Date Type Department Care Team (Late st Contact Info) Description 07/19/2024 12:15 PM EST Office Visit Hematology/Oncology [facility] [address] [facility] [place] [phone] Bahman Brandon MD [address] [facility] [place] [address] 08/02/2024 10:20 AM EST Office Visit Podiatry [facility] [address] [place] [address] Nicki Gomez DPM [address] [place] [address] 10/03/2024 3:00 PM EST Office Visit Cardiology, [facility] [address] [place] [address] Rashmi Graham PA-C [address] [place] [address] 10/04/2024 3:00 PM EST Office Visit General Internal Medicine [facility] [address] [facility] [place] [address] Ruth Brandon MD [address] [facility] [place], [place] [address] 11/22/2024 2:00 PM EDT Office Visit Cardiology, [facility] [address] [place] [address] Rashmi Graham PA-C [address] [place] [address] 04/28/2025 1:40 PM EDT Office Visit Rheumatology [place] [id number] [place] [address] Serigo Coughlin MD [address] [place] [address] Scheduled Procedures Name Priority Associated Diagnoses Date/Ti [...] D LEVEL ONCE IN A LIFETIME-USE SMARTSET# [id number] Completed 06/08/2024, 04/20/2024, 02/10/2023, Additional history exists [...] this encounter Medical Devices Implanted Type Area Insulator Tester Device Identifier Shelf Expiration Date Model / Serial / Lot Port 6fr Chronoflex [id number] - [id number] Implanted:Qty: 1 on 02/22/2008 at OR [facility] Left: Chest CR BARD : [employer] [id number] / / [id number] documented as of this encounter Advance Directives Documents on File Type Date Recorded 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
--- OUTSIDE RECORDS SUMMARY | 2024-07-24 23:51 | External Medical Summary | Summary of Care ---
Author Name Unknown Organization [facility] Address [address] [place] [address] Phone [phone] Care Team Providers Care Pediatric Geneticist Name Role Phone Ruth Brandon MD Primary Care Provider + Reason for Referral * Evaluate & Treat - Unlimited Visits (Within 30 days (routine)) - Authorized Specialty Diagnoses / Procedures Referred By Contlina t Referred To Contact Hematology/Oncology / Hematology Oncology Diagnoses Iron deficiency anemia, unspecified iron deficiency anemia type Ruth Brandon MD [address] [place] [address] Phone: tel: fax: Referral ID Status Reason Start Date Expiration Date Visits Requested Visits Authorized [id number] Authorized Specialty Services Required 4 [phone] Question Answer Referral Priority Within 30 days (routine) Where should this appointment be scheduled? [facility] Reason for Referral Thrombosis/Bruising/Abnormal Coagulation Comments Pt with hx of nonischemic cardiomyopathy, paroxysmal afib, CHF Echo October 03, 2022 demonstrating thrombus in [...] for recurrent supra therapeutic INR, prolong PTT. Thanks Reason for Visit * Reason Onset Date Comments Hospital Follow-Up [facility] Follow-Up 07/12/2024 Encounter Details Date Type Department Care Team (Latest Contact Info) Description 07/12/2024 11:00 AM EST Office Visit General Internal Medicine [facility]ier[facility] [address] [place] [address] Ruth Brandon MD [address] [facility] [place] [address] Gastrointestinal hemorrhage associated with gastritis, unspecified gastritis type*; Iron deficiency anemia, unspecified iron deficiency anemia type; Idiopathic cardiomyopathy (HCC); PAF (paroxysmal atrial fibrillation) (HCC); Nonischemic cardiomyopathy (HCC); Gastroesophageal reflux disease without esophagitis; Hospital discharge follow-up Allergies Active Allergy Reactions Criticality Noted Date Comments Adhesive Tape Other (Please comment) 01/24/2008 Welts, blisters Bee Stings 02/14/2003 Bee Venom Hives 10/17/2019 Iodine Hives 10/17/2019 Ivp Dye 01/10/1998 hives documented as of this encounter (statuses as of 07/12/2024) Medications VITAMIN B-6 100 MG PO TABS [...] as of this encounter (statuses as of 07/12/2024) Active Problems Problem Noted Date Diagnosed Date SDH (subdural hematoma) 05/25/2024 PAF (paroxysmal atrial fibrillation) 05/24/2024 Chronic anticoagulation 05/24/2024 Acute blood loss anemia 05/24/2024 AVM (arteriovenous malformat ion) of stomach, acquired with hemorrhage 05/24/2024 Nonischemic cardiomyopathy 03/17/2024 Chronic atrial fibrillation 12/29/2023 Atherosclerosis of aorta 06/23/2023 Atherosclerosis of coronary artery of [place] heart without angina pectoris 06/23/2023 Atrial thrombus [...] as of this encounter (statuses as of 07/12/2024) Resolved Problems Problem Noted Date Diagnosed Date [...] HX OF BREAST MALIGNANCY - ri ght, [id number], 200702/26/2011 10/04/2013 Polyneuropathy in other dise ases [...] as of this encounter (statuses as of 07/12/2024) Immunizations Name Administration Dates Next Due COVID-19 mRNA, LNP-s, No Pre serve, 2-Dose Series ([employer]) 07/19/2021,11/06/2020,10/11/2020 COVID-19, LNP-s, No Preserve , Sony-sucrose, Ages 12+ ([employer]) 12/27/2021 COVID-19, MRNA-LNP, 24-25, P R, 30MCG/0.3ML, IM, 12YRS AND ABOVE ([facility]) 04/28/2024 COVID-19, MRNA-LNP, PF, 30 M CG/0.3 mL, 12 YRS AND ABOVE, IM ([facility] 07/13/2023 Covid-19, Mrna, Lnp-s, Pf, B ivalent, 30 Mcg, IM, 12 yrs and above ([employer]) 07/17/2022 Pneumococcal Conjugate Vacc, 13 Valent (Prevnar) [...] Sign Reading Time Taken Comments Blood Pressure 110/54 07/12/2024 11:03 AM EST Pulse 74 07/12/2024 11:03 AM EST Temperature 36.8 C (98.2 F) 07/12/2024 1 1:03 AM EST Respiratory Rate 16 07/12/2024 11:0 3 AM EST Oxygen Saturation 98% 07/12/2024 11: 03 AM EST Inhaled Oxygen Concentration - - Weight 79.7 kg (175 lb 12.8 oz) 024 11:03 AM EST Height - - Body Mass Index 36.74 06/07/2024 1:43 PM EDT documented in this encounter Functional Status * [...] Progress Notes * Ruth Brandon MD - 07/12/2024 11:08 AM EST HPI: Eduarda Bond is a 79 year old female with a history of nonischemic cardiomyopathy with 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 Gonsalez who switched her warfarin 2 Eliquis after 2 weeks of hold on anticoagulation looking ather history of subdural hematoma, was seen by Neurosurgery at that time, was put on Keppra for seizure prevention, chronic left bundle branch block, [id number] mitral insufficiency, history of class 2 to 3 congestive heart failure, systolic with improvement post biventricular pacemaker implantation, history of breast carcinoma, right side status post mastectomy, chemotherapy and radiation therapy, last EF 48% when she had a 2D echo done, who presents with: Chief Complaint Patient presents with Hospital Follow-Up Hospital follow up Feeling good Pt is here for the hospital follow up. Chart reviewed from the hospital including admission note, Hand P, consult notes, labs, EKG, imaging and discharge note including discharge meds. Patient states she is feeling better since went back home. Pt was admitted to the hospital on 07/03/24 and was discharged on 07/07/24 . Admission Diagnosis : Supratherapeutic INR, anemia,, rule out GI bleed As per the review of the chart and discussion with the patient recently she ended up in Emergency Room for having black tarry stools for few days, right conjunctival hemorrhage, workup with epistaxis. In ER patient was found to have elevated INR around 9 and elevated PTT. Patient states she was nottaking warfarin by mistake along with Eliquis since the switch was done sometime in May at lastCardiology visit with Dr. Gonsalez. In ER patient was given vitamin K and her EKG showed atrial sensedrhythm. Patient had GI evaluation and ended up getting EGD and colonoscopy done. It showed 2 small angio ectasia with no bleeding and it was found in gastric body. Colonoscopy showed internal hemorrhoids and no other acute bleeding and no polyps. Patient did receive 2 units of packed RBC in Emergency Room on 07/05 and was started on a Protonix drip and evaluated by GI and Cardiology. Nuclear medicine tagged red blood scan was negative on 07/05. Her hemoglobin was around 6 and at the discharge after 2 packed RBC it was 8.4. Patient was discharged home and was advised to hold the Eliquis for few days or until seen by us orCardiology. No bleeding from any site Pt has been followed up by major case detective and specialists. Patient Active Problem List Diagnosis Hypothyroidism Mitral [...] aorta (HCC) Atherosclerosis of coronary artery of [place] heart without angina pectoris Chronic atrial fibrillation (HCC) Nonischemic cardiomyopathy (HCC) PAF (paroxysmal atrial fibrillation) ([facility]) Chronic anticoagulation Acute blood loss anemia AVM (arteriovenous malformation) of stomach, acquired with hemorrhage SDH (subdural hematoma) ([facility]) Current Outpatient Medications Medication Sig Dispense Refill VITAMIN B-6 100 MG PO TABS Take 1 Tablet by mouth in the morning. CALCIUM 1250 MG PO TABS Take 1 Tablet by mouth in the morning. 1200mg. VITAMIN D 2000 UNITS PO CAPS Take 1,000 Units by mouth in the morning. Furosemide 20 MG Oral Tablet (Lasix) TAKE [...] 1 Tablet before bedtime. 60 Tablet 0 Rosuvastatin Calcium 10 MG Oral Tablet (Crestor) TAKE ONE TABLET BY MOUTH EVERY DAY IN THE MORNING 90 Tablet 3 acetaminophen (TYLENOL) 500 MG Tablet Take 1 Tablet by mouth 2 times a day as needed (pain). Amoxicillin 500 MG Oral Capsule (Amoxil) Take 4 capsules prior to appointment 4 Capsule 6 Triamcinolone Acetonide 0.1 % External Cream (Aristocort) Apply to areas of itchy rash on back, arms, and neck twice daily 450 g 5 traZODone HCl 50 MG Oral Tablet (Desyrel) Take 1 Tablet by mouth at bedtime. (Patient not taking: Reported on 07/12/2024) 30 Tablet 3 Apixaban 5 MG Oral Tablet (Eliquis) Take 1 Tablet by mouth in the morning and 1 Tablet before bedtime. (Patient not taking: Reported on 07/12/2024) 180 Tablet 3 No current facility-administered medications for this visit. The patient's medication list was reviewed and updated as needed. Review of patient's allergies indicates: Allergen Reactions Adhesive Tape Other (Please comment) Welts, blisters Bee Stings Bee Venom Hives Iodine Hives Ivp Dye hives Past Medical History: Diagnosis Date Yi's esophagus 03/09/2012 UPPER GI ENDOSCOPY DIAGNOSTIC performed [facility] Uma Lin DO [facility], path showsshort segment Barretts esophagitis repeat in 1 year Barretts esophagus 04/05/2013 UPPER GI ENDOSCOPY DIAGNOSTIC performed by Uma Lin DO at [facility]COPY [facility], inflammation consistent with long segment barretts, [...] children: 4 Occupational History 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 Social Needs Food Insecurity: No Food Insecurity (05/23/2024) Food Insecurity Do you need food for this week? (Adult - for ages 18 years and over): No Transportation Needs: No Transportation Needs (05/23/2024) Transportation Needs Has lack of transportation kept you from medical appointments, meetings, work, or from getting things needed for daily living? Check all that apply. (Adult - for ages 18 years and over): No Housing Stability: Low Risk (05/23/2024) Housing Stability Are you homeless or worried that you might be in the future? (Adult - for ages 18 years and over): No Family History Problem Relation Name Age of Onset Breast Cancer Sister Heart Disorder Father [place] Heart Disorder Sister MVP Hypertension Mother Cancer Brother thyroid Cancer Brother brain Other (skin disorders) Brother denies melanoma or other skin disorders All system negative except as per hpi. OBJECTIVE: BP 110/54 | Pulse 74 | Temp 98.2 F (36.8 C) (Tympanic) | Resp 16 | Wt 175 lb 12.8 oz (79.7 kg) | SpO2 98% | BMI 36.74 kg/m | BSA 1.81 m PHYSICAL EXAM: HEENT: PERRLA, EOMI, anicteric [...] stable No focal weakness ASSESSMENT AND PLAN: Gastrointestinal hemorrhage associated with gastritis, unspecified gastritis type (Primary) Advised pt to avoid caffeine, fried fatty foods, choclates, peppermints, smoking and alcohol. Exercise and weight loss emphasized. Eat dinner 3 hours prior to bed time. On PPI twice daily. Needs hematology work up as despite on eliquis, pt with prolong PTT and high INR. Iron deficiency anemia, unspecified iron deficiency anemia type - HEMATOLOGY/ONCOLOGY REFERRAL OP Idiopathic cardiomyopathy (HCC) Stable. PAF (paroxysmal atrial fibrillation) (HCC) Rate controlled. Off anticoagulation as recent GI bleed. Nonischemic cardiomyopathy (HCC) Stable. Needs sooner cardiology f/u raeann since hosp discharge. Gastroesophageal reflux disease without esophagitis Advised pt to avoid caffeine, fried fatty foods, choclates, peppermints, smoking and alcohol. Exercise and weight loss emphasized. Eat dinner 3 hours prior to bed time. Hospital discharge follow-up - DISCH MED RECON CUR MED KADEEM Brandon MD documented in this encounter Nursing Notes * Salima Zavala LPN - 07/12/2024 11:01 AM EST Hospital Follow-Up (Hospital follow up/Feeling good) documented in this encounter Plan of Treatment Upcoming Encounters Date Type Department Care Team (Late st Contact Info) Description 07/19/2024 12:15 PM EST Office Visit Hematology/Oncology [facility] [address] [facility] [place] [phone] Bahman Brandon MD [address] [facility] [place] [address] 08/02/2024 10:20 AM EST Office Visit Podiatry [facility] [address] [place] [address] Nicki Gomez DPM [address] [place] [address] 10/03/2024 3:00 PM EST Office Visit Cardiology, [facility] [address] [place] [address] Rashmi Graham PA-C [address] [place] [address] 10/04/2024 3:00 PM EST Office Visit General Internal Medicine [facility] [address] [facility] [place] [address] Ruth Brandon MD [address] [facility] [place] [address] 11/22/2024 2:00 PM EDT Office Visit Cardiology, [facility] [address] [place] [address] Rashmi Graham PA-C [address] [place] [address] 04/28/2025 1:40 PM EDT Office Visit Rheumatology [place] [address] [employer] [place] [address] Sergio Coughlin MD [facility] [place], [place] [address] Scheduled Procedures Name Priority Associated Diagnoses Date/Ti me COLONOSCOPY FLEXIBLE PROXIMA L DIAGNOSTIC Recall Special screening for malignant neoplasm of colon Scheduled Referrals Name Type Priority Associated Diagnoses Orde r Schedule HEMATOLOGY/ONCOLOGY REFERRAL OP Referral Within 30 days (routine) Iron deficiency anemia, unspecified iron deficiency anemia type Ordered: 07/12/2024 Health Maintenance Due Date Last Done Comments [...] D LEVEL ONCE IN A LIFETIME-USE SMARTSET# [id number] Completed 06/08/2024, 04/20/2024, 02/10/2023, Additional history exists [...] this encounter Medical Devices Implanted Type Area Catalyst Concentration Operator Device Identifier Shelf Expiration Date Model / Serial / Lot Port 6fr Chronoflex [id number] - [id number] Implanted:Qty: 1 on 02/22/2008 [place] [facility] [place]: Chest CR BARD : [employer] [id number] / / [id number] documented as of this encounter Visit Diagnoses Diagnosis Gastrointestinal hemorrhage associated with gastritis, unspecified gastritis type- Primary Iron deficiency anemia, unspecified iron deficiency anemia type Idiopathic cardiomyopathy (HCC) Other primary cardiomyopathies PAF (paroxysmal atrial fibrillation) (HCC) Atrial fibrillation Nonischemic cardiomyopathy (HCC) Other primary cardiomyopathies Gastroesophageal reflux disease without esophagitis Esophageal reflux Hospital discharge follow-up Other follow-up examination documented in this encounter Advance Directives Documents on File Type Date Recorded Patient Tapper Hand Expl anation Advance Directives and Living Will [...] 1:06 PM 01/16/2008 7:05 PM Care Teams Pediatric Geneticist Relationship Specialty Start Date End Date Ruth Brandon MD [address] [place] [address] PCP - General Internal Medicine 04/25/21 documented as of this encounter"
--- OUTSIDE RECORDS SUMMARY | 2024-07-24 23:51 | External Medical Summary | Summary of Care ---
Author Name Unknown Organization [facility] Address [address] [place] [address] Phone [phone] Care Team Providers Care Eligibility Services Representative Name Role Phone Ruth Brandon MD Primary Care Provider + Encounter Details Date Type Department Care Team (Late st Contact Info) Description 07/08/2024 Telephone Hematology/Oncology [facility] [place] [address] [facility] [place] [address] Services, Scheduling [address] [place] [address] Allergies Active Allergy Reactions Criticality Noted Date Comments Adhesive Tape Other (Please comment) 01/24/2008 Welts, blisters Bee Stings 02/14/2003 Bee Venom Hives 10/17/2019 Iodine Hives 10/17/2019 Ivp Dye 01/10/1998 hives documented as of this encounter (statuses as of 07/11/2024) Medications VITAMIN B-6 100 MG PO TABS [...] mouth at bedtime. 30 Tablet 3 05/30/20 Active Apixaban 5 MG Oral Tablet (Eliquis) Take 1 Tablet by mouth in the morning and 1 Tablet before bedtime. 180 Tablet 3 06/15/2024 3:46 PM EDT 06/14/20 Active Rosuvastatin Calcium 10 MG Oral Tablet (Crestor)Indicatio ns: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) TAKE ONE TABLET BY MOUTH EVERY DAY IN THE MORNING 90 Tablet 3 06/16/20 24 025 Active documented as of this encounter (statuses as of 07/11/2024) Active Problems Problem Noted Date Diagnosed Date SDH (subdural hematoma) 05/25/2024 PAF (paroxysmal atrial fibrillation) 05/24/2024 Chronic anticoagulation 05/24/2024 Acute blood loss anemia 05/24/2024 AVM (arteriovenous malformat ion) of stomach, acquired with hemorrhage 05/24/2024 Nonischemic cardiomyopathy 03/17/2024 Chronic atrial fibrillation 12/29/2023 Atherosclerosis of aorta 06/23/2023 Atherosclerosis of coronary artery of [place] heart without angina pectoris 06/23/2023 Atrial thrombus [...] as of this encounter (statuses as of 07/11/2024) Resolved Problems Problem Noted Date Diagnosed Date [...] HX OF BREAST MALIGNANCY - ri ght, [id number], 200702/26/2011 10/04/2013 Polyneuropathy in other dise ases [...] as of this encounter (statuses as of 07/11/2024) Immunizations Name Administration Dates Next Due COVID-19 mRNA, LNP-s, No Pre serve, 2-Dose Series ([employer]) 07/19/2021,11/06/2020,10/11/2020 COVID-19, LNP-s, No Preserve , Sony-sucrose, Ages 12+ ([employer]) 12/27/2021 COVID-19, MRNA-LNP, 24-25, P R, 30MCG/0.3ML, IM, 12YRS AND ABOVE ([facility]) 04/28/2024 COVID-19, MRNA-LNP, PF, 30 M CG/0.3 mL, 12 YRS AND ABOVE, IM ([facility]) 07/13/2023 Covid-19, Mrna, Lnp-s, Pf, B ivalent, 30 Mcg, IM, 12 yrs and above ([employer]) 07/17/2022 Influenza, Whole Virus 09/15/1985 Pneumococcal Conjugate [...] ages 0-17 years) Not on file 05/23/2024 Transportation Needs Answer Date Record ed Do [...] ages 0-17 years) Not on file 05/23/2024 Comments No Sex and Gender Information Value [...] RN - 07/11/2024 9:31 AM EST Per [facility] discharge summary, patient recently admitted with [...] appointment scheduled with hematology. She discharged from [facility] on 07/07/24. * Telephone Encounter - Linette Guerra OSA - 07/08/2024 4:16 PM EST Eduarda called needing to r/s her infusion on 07/11 Please call her back thank you documented in this encounter Plan of Treatment Upcoming Encounters Date Type Department Care Team (Late st Contact Info) Description 07/12/2024 11:00 AM EST Office Visit General Internal Medicine [facility] [address] [place] [address] [address] Ruth Brandon MD [address] [place] [address] 08/02/2024 10:20 AM EST Office Visit Podiatry [facility] [address] [place] [address] Nicki Gomez DPM [address] [facility] [place] [address] 10/03/2024 3:00 PM EST Office Visit Cardiology, [facility] [address] [place] [address] Rashmi Graham PA-C [address] [place] [address] 10/04/2024 3:00 PM EST Office Visit General Internal Medicine [facility] [place] [place] [address] [place] [address] [address] Ruth Brandon MD [address] [place] [address] 11/22/2024 2:00 PM EDT Office Visit Cardiology [facility] [address] [place] [address] Rashmi Graham PA-C [address] [place] [address] 04/28/2025 1:40 PM EDT Office Visit Rheumatology [place] [address] [employer] [place] [address] Sergio Coughlin MD [address] [place] [address] Scheduled Procedures Name Priority Associated Diagnoses Date/Ti [...] D LEVEL ONCE IN A LIFETIME-USE SMARTSET# 66630 Completed 06/08/2024, 04/20/2024, 02/10/2023, Additional history exists [...] this encounter Medical Devices Implanted Type Area Bung Driver Device Identifier Shelf Expiration Date Model / Serial / Lot Port 6fr Chronoflex [id number] - [id number] Implanted:Qty: 1 on 02/22/2008 at [place] [facility] [place] Left: Chest CR BARD : [employer] [id number] / / [id number] documented as of this encounter Advance Directives Documents on File Type Date Recorded Patient [employer] Instructor Expl anation Advance Directives and Living [...] 1:06 PM 01/16/2008 7:05 PM Care Teams Eligibility Services Representative Relationship Specialty Start Date End Date Ruth Brandon MD [address] [facility] [place], [place] [address] PCP - General Internal Medicine 04/25/21 documented as of this encounter
--- OUTSIDE RECORDS SUMMARY | 2024-07-24 23:51 | External Medical Summary | Summary of Care ---
Author Name Unknown Organization [facility] Address [address] [place] [facility] [place] [address] Phone [phone] Care Team Providers Care Manager Sales And Marketing Name Role Phone Ruth Brandon MD Primary Care Provider + Reason for Visit * Reason Onset Date Comments Referral 07/12/2024 SP 30-Day Encounter Details Date Type Department Care Team (Late st Contact Info) Description 07/12/2024 New Patient Triage (SOFTWARE DEVELOPMENT COORDINATOR USE ONLY) Hematology/Oncology [facility] [address] [facility] [address] Shonna Gayle CRNP [address] [facility] [place] [address] Referral (SP 30-Day) Allergies Active [...] aorta 06/23/2023 Atherosclerosis of coronary artery of ruby heart without angina pectoris 06/23/2023 Atrial thrombus [...] 01/04/2013 017 HX OF BREAST MALIGNANCY - wi ght, [id number], 200702/26/2011 10/04/2013 Polyneuropathy in other dise ases [...] mRNA, LNP-s, No Pre serve, 2-Dose Series ([employer]) 07/19/2021,11/06/2020,10/11/2020 COVID-19, LNP-s, No Preserve , Sony-sucrose, Ages 12+ ([employer]) 12/27/2021 COVID-19, MRNA-LNP, 24-25, P R, 30MCG/0.3ML, IM, 12YRS AND ABOVE ([employer]) 04/28/2024 COVID-19, MRNA-LNP, PF, 30 M CG/0.3 mL, 12 YRS AND ABOVE, IM ([employer]) 07/13/2023 Covid-19, Mrna, Lnp-s, Pf, B ivalent, 30 Mcg, IM, 12 yrs and above ([employer]) 07/17/2022 Influenza, Whole Virus 09/15/1985 Pneumococcal Conjugate [...] No 07/12/2024 Does the household have a [facility] source of income? (Household - for ages [...] documented in this encounter Progress Notes * Rashmi Merritt OSA - 07/12/2024 2:41 [...] referral?: Unspecified SABAS Enter order ID here: [id number] Specialty specific documentation: Hematology/Oncology NEW PATIENT - [...] Surgery, outpatient infusion): No Additional triage comments: [facility] Progress Notes: Page 8, Ed Note: page [...] 07/19/2024 12:15 PM EST Office Visit Hematology/Oncology [facility] [address] [facility] [place] [phone] Bahman Brandon MD [address] [facility] [place] [address] 08/02/2024 10:20 AM EST Office Visit Podiatry [facility] [address] [place] [address] Nicki Gomez DPM [address] [place] [address] 10/03/2024 3:00 PM EST Office Visit Cardiology, [facility] [address] [place] [address] Rashmi Graham PA-C [address] [place] [address] 10/04/2024 3:00 PM EST Office Visit General Internal Medicine [facility] [address] [facility] [place] [address] Ruth Brandon MD [address] [facility] [place] [address] 11/22/2024 2:00 PM EDT Office Visit Cardiology, [facility] [address] [place] [address] Rashmi Graham PA-C [address] [place] [address] 04/28/2025 1:40 PM EDT Office Visit Rheumatology [place] [address] [employer] [place] [address] Sergio Coughlin MD [address] [employer] [place] [address] Scheduled Procedures Name Priority Associated Diagnoses Date/Ti [...] 04/04/2015, 09/28/2012, 10/28/2006 Zoster Vaccines Completed 01/15/2019, 09/0 02/2018, 04/02/2011 Influenza Vaccine (FLU shot) Completed 07/2024, 04/28/2024, 05/14/2023, Additional history exists VITAMIN D LEVEL ONCE IN A LIFETIME-USE SMARTSET# 44466 Completed 06/08/2024, 04/20/2024, 02/10/2023, Additional history exists [...] this encounter Medical Devices Implanted Type Area Driveway Sealer Device Identifier Shelf Expiration Date Model / Serial / Lot Port 6fr Chronoflex [id number] - [id number] Implanted:Qty: 1 on 02/22/2008 at OR [facility] [place] Left: Chest CR BARD : [employer] [id number] / / [id number] documented as of this encounter Advance Directives Documents on File Type Date Recorded Patient Glass Blowing Instructor Expl anation Advance Directives and Living [...] PM 01/16/2008 7:05 PM Care Teams Manager Sales And Marketing Relationship Specialty Start Date End Date Ruth Brandon MD [address] [facility] [place] [address] PCP - General Internal Medicine 04/25/21 documented as of this encounter
--- OUTSIDE RECORDS SUMMARY | 2024-07-24 23:51 | External Medical Summary | Summary of Care ---
Author Name Unknown Organization [facility] Address [address] [place] [address] Phone [phone] Care Team Providers Care Sales Order Processor Name Role Phone Ruth Brandon MD Primary Care Provider + Encounter Details Date Type Department Care Team (Late st Contact Info) Description 07/08/2024 Telephone Hematology/Oncology [facility] [place] [address] [facility] [address] Services, Scheduling [address] [place] [address] Allergies Active Allergy Reactions Criticality Noted Date [...] aorta 06/23/2023 Atherosclerosis of coronary artery of three affiliated heart without angina pectoris 06/23/2023 Atrial thrombus [...] HX OF BREAST MALIGNANCY - ri ght, [id number], 200702/26/2011 10/04/2013 Polyneuropathy in other dise ases [...] mRNA, LNP-s, No Pre serve, 2-Dose Series ([employer]) 07/19/2021,11/06/2020,10/11/2020 COVID-19, LNP-s, No Preserve , Sony-sucrose, Ages 12+ ([employer]) 12/27/2021 COVID-19, MRNA-LNP, 24-25, P R, 30MCG/0.3ML, IM, 12YRS AND ABOVE ([facility]) 04/28/2024 COVID-19, MRNA-LNP, PF, 30 M CG/0.3 mL, 12 YRS AND ABOVE, IM ([facility]) 07/13/2023 Covid-19, Mrna, Lnp-s, Pf, B ivalent, 30 Mcg, IM, 12 yrs and above ([employer]) 07/17/2022 Influenza, Whole Virus 09/15/1985 Pneumococcal Conjugate [...] RN - 07/11/2024 9:31 AM EST Per [facility] discharge summary, patient recently admitted with anemia [...] appointment scheduled with hematology. She discharged from [facility] on 07/07/24. * Telephone Encounter - Linette Guerra OSA - 07/08/2024 4:16 PM EST Eduarda called needing to r/s her infusion on 07/11 Please call her back thank you documented in this encounter Plan of Treatment Upcoming Encounters Date Type Department Care Team (Late st Contact Info) Description 07/12/2024 11:00 AM EST Office Visit General Internal Medicine [facility] [place] [address] [place] [address] Ruth Brandon MD [address] [place] [address] 08/02/2024 10:20 AM EST Office Visit Podiatry [facility] [address] [place] [address] Nicki Gomez DPM [address] [facility] [place] [address] 10/03/2024 3:00 PM EST Office Visit Cardiology, [facility] [address] [place] [address] Rashmi Graham PA-C [address] [place] [address] 10/04/2024 3:00 PM EST Office Visit General Internal Medicine [facility] [place] [address] [place] [address] Ruth Bradnon MD [address] [address] 11/22/2024 2:00 PM EDT Office Visit Cardiology [facility] [address] [place] [address] Rashmi Graham PA-C [address] [place] [address] 04/28/2025 1:40 PM EDT Office Visit Rheumatology [place] [address] [employer] [place] [address] Sergio Coughlin MD [address] [employer] [place] [address] Scheduled Procedures Name Priority Associated Diagnoses Date/Ti [...] D LEVEL ONCE IN A LIFETIME-USE SMARTSET# 47750 Completed 06/08/2024, 04/20/2024, 02/10/2023, Additional history exists [...] this encounter Medical Devices Implanted Type Area Oracle Fusion Middleware Developer Device Identifier Shelf Expiration Date Model / Serial / Lot Port 6fr Chronoflex [id number] - [id number] Implanted:Qty: 1 on 02[place]22/[place] [facility] [place]: Chest CR BARD : ACCESS SYSTEMS [id number] / / [id number] documented as of this encounter Advance Directives Documents on File Type Date Recorded Patient Production Technician Expl anation Advance Directives and Living Will [...] 1:06 PM 01/16/2008 7:05 PM Care Teams Sales Order Processor Relationship Specialty Start Date End Date Ruth Brandon MD [address] [facility] [place], [place] [address] PCP - General Internal Medicine 04/25/21 documented as of this encounter
--- OUTSIDE RECORDS SUMMARY | 2024-07-24 23:51 | External Medical Summary | Summary of Care ---
Author Name Unknown Organization [facility] Address [address] [place] [address] Phone [phone] Care Team Providers Care Nuclear Weapons Custodian Name Role Phone Ruth Brandon MD Primary Care Provider + Encounter Details Date Type Department Care Team (Late st Contact Info) Description 07/08/2024 Telephone Hematology/Oncology [facility] [place] [address] [facility] [address] Services, Scheduling [address] [place] [address] Allergies Active Allergy Reactions Criticality Noted Date [...] aorta 06/23/2023 Atherosclerosis of coronary artery of [place] heart without angina pectoris 06/23/2023 Atrial thrombus [...] HX OF BREAST MALIGNANCY - ri ght, [id number], 200702/26/2011 10/04/2013 Polyneuropathy in other dise ases [...] mRNA, LNP-s, No Pre serve, 2-Dose Series ([employer]) 07/19/2021,11/06/2020,10/11/2020 COVID-19, LNP-s, No Preserve , Sony-sucrose, Ages 12+ ([employer]) 12/27/2021 COVID-19, MRNA-LNP, 24-25, P R, 30MCG/0.3ML, IM, 12YRS AND ABOVE ([facility]) 04/28/2024 COVID-19, MRNA-LNP, PF, 30 M CG/0.3 mL, 12 YRS AND ABOVE, IM ([facility]) 07/13/2023 Covid-19, Mrna, Lnp-s, Pf, B ivalent, 30 Mcg, IM, 12 yrs and above ([employer]) 07/17/2022 Influenza, Whole Virus 09/15/1985 Pneumococcal Conjugate [...] RN - 07/11/2024 9:31 AM EST Per [facility] discharge summary, patient recently admitted with anemia from GI bleed, on coumadin- recommended that she see hematology. She had reclast ordered 04/20/[address] Coughlin, this has been rescheduled several times due to admissions. Scheduling: please follow up with patient to schedue new hematology appt, must be with MD Dr Coughlin: are you ok with reclast being rescheduled? * Telephone Encounter - Cait Schwatrz OSA - 07/11/2024 9:11 AM EST Is [...] appointment scheduled with hematology. She discharged from [facility] on 07/07/24. * Telephone Encounter - Linette Guerra OSA - 07/08/2024 4:16 PM EST Eduarda called needing to r/s her infusion on 07/11 Please call her back thank you documented in this encounter Plan of Treatment Upcoming Encounters Date Type Department Care Team (Late st Contact Info) Description 07/12/2024 11:00 AM EST Office Visit General Internal Medicine [facility] [place] [address] [place] [address] Ruth Brandon MD [address] [address] 08/02/2024 10:20 AM EST Office Visit Podiatry [facility] [address] [place] [address] Nicki Gomez DPM [address] [facility] [place] [address] 10/03/2024 3:00 PM EST Office Visit Cardiology, [facility] [address] [place] [address] Rashmi Graham PA-C [address] [place] [address] 10/04/2024 3:00 PM EST Office Visit General Internal Medicine [facility] [place] [address] [place] [address] [address] Ruth Brandon MD [address] [address] 11/22/2024 2:00 PM EDT Office Visit Cardiology [facility] [address] [place] [address] Rashmi Graham PA-C [address] [place] [address] 04/28/2025 1:40 PM EDT Office Visit Rheumatology [place] [address] [employer] [place] [address] Sergio Coughlin MD [address] [employer] [place] [address] Scheduled Procedures Name Priority Associated Diagnoses Date/Ti [...] D LEVEL ONCE IN A LIFETIME-USE SMARTSET# 60679 Completed 06/08/2024, 04/20/2024, 02/10/2023, Additional history exists [...] this encounter Medical Devices Implanted Type Area Wastewater Technician Device Identifier Shelf Expiration Date Model / Serial / Lot Port 6fr Chronoflex [id number] - [id number] Implanted:Qty: 1 on 02/22/2008 at [place] [facility] [place] Left: Chest CR BARD : ACCESS SYSTEMS [id number] / / [id number] documented as of this encounter Advance Directives Documents on File Type Date Recorded 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
--- OUTSIDE RECORDS SUMMARY | 2024-07-24 23:51 | External Medical Summary | Summary of Care ---
Author Name Unknown Organization [facility] Address [address] [place] [facility] [address] Phone [phone] Care Team Providers Care Tank Builder And Erector Name Role Phone Ruth Brandon MD Primary Care Provider + Reason for Visit * Reason Onset Date Comments Referral 07/12/2024 SP 30-Day Encounter Details Date Type Department Care Team (Late st Contact Info) Description 07/12/2024 New Patient Triage (TOOL INSPECTOR USE ONLY) Hematology/Oncology [facility] [address] [facility] [address] Shonna Gayle CRNP [address] [facility] [place] [address] Referral (SP 30-Day) Allergies Active [...] aorta 06/23/2023 Atherosclerosis of coronary artery of pa[place]shoshone heart without angina pectoris 06/23/2023 Atrial thrombus [...] 01/04/2013 017 HX OF BREAST MALIGNANCY - sc ght, [id number], 200702/26/2011 10/04/2013 Polyneuropathy in other dise ases [...] mRNA, LNP-s, No Pre serve, 2-Dose Series ([employer]) 07/19/2021,11/06/2020,10/11/2020 COVID-19, LNP-s, No Preserve , Sony-sucrose, Ages 12+ ([employer]) 12/27/2021 COVID-19, MRNA-LNP, 24-25, P R, 30MCG/0.3ML, IM, 12YRS AND ABOVE ([employer]) 04/28/2024 COVID-19, MRNA-LNP, PF, 30 M CG/0.3 mL, 12 YRS AND ABOVE, IM ([employer]) 07/13/2023 Covid-19, Mrna, Lnp-s, Pf, B ivalent, 30 Mcg, IM, 12 yrs and above ([employer]) 07/17/2022 Influenza, Whole Virus 09/15/1985 Pneumococcal Conjugate [...] No 07/12/2024 Does the household have a nor-[facility]a general hospitallar source of income? (Household - for [...] referral?: Unspecified SABAS Enter order ID here: [id number] Specialty specific documentation: Hematology/Oncology NEW PATIENT - [...] Surgery, outpatient infusion): No Additional triage comments: [facility] Progress Notes: Page 8, Ed Note: page [...] 07/19/2024 12:15 PM EST Office Visit Hematology/Oncology [facility] [address] [facility] [place] [phone] Bahman Brandon MD [address] [facility] [place] [address] 08/02/2024 10:20 AM EST Office Visit Podiatry [facility] [address] [place] [address] Nicki Gomez DPM [address] [place] [address] 10/03/2024 3:00 PM EST Office Visit Cardiology, [facility] [address] [place] [address] Rashmi Graham PA-C [address] [place] [address] 10/04/2024 3:00 PM EST Office Visit General Internal Medicine [facility] [address] [facility] [place] [address] Ruth Brandon MD [address] [facility] [place] [address] 11/22/2024 2:00 PM EDT Office Visit Cardiology, [facility] [address] [place] [address] Rashmi Graham PA-C [address] [place] [address] 04/28/2025 1:40 PM EDT Office Visit Rheumatology [place] [address] [employer] [place] [address] Sergio Coughlin MD [address] [place] [address] Scheduled Procedures Name Priority Associated Diagnoses Date/Ti [...] D LEVEL ONCE IN A LIFETIME-USE SMARTSET# 30020 Completed 06/08/2024, 04/20/2024, 02/10/2023, Additional history exists [...] this encounter Medical Devices Implanted Type Area Plater Helper Device Identifier Shelf Expiration Date Model / Serial / Lot Port 6fr Chronoflex [id number] - [id number] Implanted:Qty: 1 on 02/22/2008 at [place] [facility] [place] Left: Chest CR BARD : [employer] [id number] / / [id number] documented as of this encounter Advance Directives Documents on File Type Date Recorded 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
--- OUTSIDE RECORDS SUMMARY | 2024-07-24 23:51 | External Medical Summary | Summary of Care ---
Author Name Unknown Organization [facility] Address [address] [facility] [address] Phone [phone] Care Team Providers Care Stand Up Comedian Name Role Phone Ruth Brandon MD Primary Care Provider + Reason for Visit * Reason Onset Date Comments Referral 07/12/2024 SP 30-Day Encounter Details Date Type Department Care Team (Late st Contact Info) Description 07/12/2024 New Patient Triage (CAREER TECHNICAL EDUCATION INSTRUCTOR USE ONLY) Hematology/Oncology [facility] [address] Shonna Gayle CRNP [address] [facility] [...] aorta 06/23/2023 Atherosclerosis of coronary artery of [place] heart without angina pectoris 06/23/2023 Atrial thrombus [...] 01/04/2013 017 HX OF BREAST MALIGNANCY - vt ght, [id number], 200702/26/2011 10/04/2013 Polyneuropathy in other dise ases [...] LNP-s, No Pre serve, 2-Dose Series ([employer]) 07/19/2021,11/06/2020,10/11/2020 COVID-19, LNP-s, No Preserve , Sony-sucrose, Ages 12+ ([employer]) 12/27/2021 COVID-19, MRNA-LNP, 24-25, P R, 30MCG/0.3ML, IM, 12YRS AND ABOVE ([employer]) 04/28/2024 COVID-19, MRNA-LNP, PF, 30 M CG/0.3 mL, 12 YRS AND ABOVE, IM ([employer]) 07/13/2023 Covid-19, Mrna, Lnp-s, Pf, B ivalent, 30 Mcg, IM, 12 yrs and above ([employer]) 07/17/2022 Pneumococcal Conjugate Vacc, 13 Valent (Prevnar) [...] of Assessment Author Yes 05/23/2024 10:36 PM EDAn La RN * Are you blind or do [...] Progress Notes * Camryn Dale LPN - 07/12/2024 12:43 PM EST New Patient Triage What is the diagnosis/reason for referral?: Unspecified SABAS Enter order ID here: [id number] Specialty specific documentation: Hematology/Oncology NEW PATIENT - [...] Surgery, outpatient infusion): No Additional triage comments: [facility] Progress Notes: Page 8, Ed [...] AM EST Office Visit Podiatry [facility] [place] [address] [place] [address] Nicki Gomez DPM [address] [place] [address] 10/03/2024 3:00 PM EST Office Visit Cardiology, [facility] [address] [place] [address] Rashmi Graham PA-C [address] [place] [address] 10/04/2024 3:00 PM EST Office Visit General Internal Medicine [facility] 200 [facility] [place] [address] Ruth Brandon MD 200 [facility] [place] [address] 11/22/2024 2:00 PM EDT Office Visit Cardiology, [facility] [address] [place] [address] Rashmi Graham PA-C [address] [address] 04/28/2025 1:40 PM EDT Office Visit Rheumatology [place] [address] [place] [address] Sergio Coughlin MD [facility] [place] [address] Scheduled Procedures Name Priority Associated Diagnoses Date/Ti [...] D LEVEL ONCE IN A LIFETIME-USE SMARTSET# 61474 Completed 06/08/2024, 04/20/2024, 02/10/2023, Additional history exists [...] this encounter Medical Devices Implanted Type Area Upholstery Estimator Device Identifier Shelf Expiration Date Model / Serial / Lot Port 6fr Chronoflex [id number] - [id number] Implanted:Qty: 1 on 02/22/2008 [place] [facility] [place]: Chest CR BARD : ACCESS SYSTEM[employer] [id number] / / [id number] documented as of this encounter Advance Directives Documents on File Type Date Recorded Patient Change Manager Expl anation Advance Directives and Living [...] 1:06 PM 01/16/2008 7:05 PM Care Teams Stand Up Comedian Relationship Specialty Start Date End Date Ruth Brandon MD [address] [place] [address], [place] [address] PCP - General Internal Medicine 04/25/21 documented as of this encounter
--- OUTSIDE RECORDS SUMMARY | 2024-07-24 23:51 | External Medical Summary | Summary of Care ---
Author Name Unknown Organization [facility] Address [address] [place] [address] Phone [phone] Care Team Providers Care Counter Professional Name Role Phone Ruth Brandon MD Primary Care Provider + Encounter Details Date Type Department Care Team (Late st Contact Info) Description 07/08/2024 Telephone Hematology/Oncology [facility] [place] [address] [facility] [address] Services, Scheduling [address] [place] [address] Allergies Active Allergy Reactions Criticality Noted Date [...] aorta 06/23/2023 Atherosclerosis of coronary artery of [place] heart without angina pectoris 06/23/2023 Atrial thrombus [...] HX OF BREAST MALIGNANCY - ri ght, [id number], 200702/26/2011 10/04/2013 Polyneuropathy in other dise ases [...] mRNA, LNP-s, No Pre serve, 2-Dose Series ([employer]) 07/19/2021,11/06/2020,10/11/2020 COVID-19, LNP-s, No Preserve , Sony-sucrose, Ages 12+ ([employer]) 12/27/2021 COVID-19, MRNA-LNP, 24-25, P R, 30MCG/0.3ML, IM, 12YRS AND ABOVE ([facility]) 04/28/2024 COVID-19, MRNA-LNP, PF, 30 M CG/0.3 mL, 12 YRS AND ABOVE, IM ([employer]) 07/13/2023 Covid-19, Mrna, Lnp-s, Pf, B ivalent, 30 Mcg, IM, 12 yrs and above ([employer]) 07/17/2022 Pneumococcal Conjugate Vacc, 13 Valent (Prevnar) [...] 05/23/2024 10:36 PM JOYT An Moeller RN documented as of this [...] appointment scheduled with hematology. She discharged from [facility] on 07/07/24. * Telephone Encounter - Linette Guerra OSA - 07/08/2024 4:16 PM EST Eduarda called needing to r/s her infusion on 07/11 Please call her back thank you documented in this encounter Plan of Treatment Upcoming Encounters Date Type Department Care Team (Late st Contact Info) Description 07/12/2024 11:00 AM EST Office Visit General Internal Medicine [facility] [place] [address] [facility] [place], [place] [address] Ruth Brandon MD 200 [facility] [place] [address] 08/02/2024 10:20 AM EST Office Visit Podiatry [facility] [address] [place] [address] Nicki Gomez DPM [address] [place] [address] 10/03/2024 3:00 PM EST Office Visit Cardiology, [facility] [place] [address] Rashmi Graham PA-C [address] [place] [address] 10/04/2024 3:00 PM EST Office Visit General Internal Medicine [facility] [address] [place] [address] Ruth Brandon MD 200 [facility] [place], [place] [address] 11/22/2024 2:00 PM EDT Office Visit Cardiology, [facility] 132 [facility] [place] [address] Rashmi Graham PA-C [address] [facility] [place] [address] 04/28/2025 1:40 PM EDT Office Visit Rheumatology [place] [address] [facility] [place], [place] [address] Sergio Coughlin MD [facility] [place], [place] [address] Scheduled Procedures Name Priority Associated Diagnoses Date/Ti [...] D LEVEL ONCE IN A LIFETIME-USE SMARTSET# [id number] Completed 06/08/2024, 04/20/2024, 02/10/2023, Additional history exists [...] this encounter Medical Devices Implanted Type Area Parking Attendant Device Identifier Shelf Expiration Date Model / Serial / Lot Port 6fr Chronoflex [id number] - [id number] Implanted:Qty: 1 on 02/22/2008 at [place] [facility] [place] Left: Chest CR BARD : ACCESS SYSTEM[employer] [id number] / / [id number] documented as of this encounter Advance Directives Documents on File Type Date Recorded Patient Canvas Marker Expl anation Advance Directives and Living Will [...] 1:06 PM 01/16/2008 7:05 PM Care Teams Counter Professional Relationship Specialty Start Date End Date Ruth Brandon MD [address] [place] [address] PCP - General Internal Medicine 04/25/21 documented as of this encounter
--- OUTSIDE RECORDS SUMMARY | 2024-07-24 23:51 | External Medical Summary | Summary of Care ---
Author Name Unknown Organization [facility] Address [address] [place] [facility] [place] [address] Phone [phone] Care Team Providers Care Umbrella Repairer Name Role Phone Ruth Brandon MD Primary Care Provider + Reason for Visit * Reason Onset Date Comments Referral 07/12/2024 SP 30-Day Encounter Details Date Type Department Care Team (Late st Contact Info) Description 07/12/2024 New Patient Triage (CERAMIC COATER MACHINE USE ONLY) Hematology/Oncology [facility] 200 [facility] [address] Shonna Gayle CRNP [address] [facility] [place] [address] Referral (SP 30-Day) Allergies Active [...] aorta 06/23/2023 Atherosclerosis of coronary artery of [place] heart without angina pectoris 06/23/2023 Atrial thrombus [...] 01/04/2013 017 HX OF BREAST MALIGNANCY - il ght, [id number], 200702/26/2011 10/04/2013 Polyneuropathy in other dise ases [...] mRNA, LNP-s, No Pre serve, 2-Dose Series ([employer]) 07/19/2021,11/06/2020,10/11/2020 COVID-19, LNP-s, No Preserve , Sony-sucrose, Ages 12+ ([employer]) 12/27/2021 COVID-19, MRNA-LNP, 24-25, P R, 30MCG/0.3ML, IM, 12YRS AND ABOVE ([employer]) 04/28/2024 COVID-19, MRNA-LNP, PF, 30 M CG/0.3 mL, 12 YRS AND ABOVE, IM ([employer].) 07/13/2023 Covid-19, Mrna, Lnp-s, Pf, B ivalent, 30 Mcg, IM, 12 yrs and above ([employer]) 07/17/2022 Influenza, Whole Virus 09/15/1985 Pneumococcal Conjugate [...] No 07/12/2024 Does the household have a [facility] christian health care serviceslar source of income? (Household - for ages [...] referral?: Unspecified SABAS Enter order ID here: [id number] Specialty specific documentation: Hematology/Oncology NEW PATIENT - [...] Surgery, outpatient infusion): No Additional triage comments: [facility] Progress Notes: Page 8, Ed [...] 07/19/2024 12:15 PM EST Office Visit Hematology/Oncology [facility] 200 [facility] [place] [address] Bahman Brandon MD 200 [facility] [place] [address] 08/02/2024 10:20 AM EST Office Visit Podiatry [facility] [address] [place] [address] Nicki Gomez DPM [address] [place] [address] 10/03/2024 3:00 PM EST Office Visit Cardiology, [facility] [address] [place] [address] Rashmi Graham PA-C [address] [place] [address] 10/04/2024 3:00 PM EST Office Visit General Internal Medicine [facility] 200 [place] [address] Ruth Brandon MD [address] [facility] [place] [address] 11/22/2024 2:00 PM EDT Office Visit Cardiology, [facility] [address] [place] [address] Rashmi Graham PA-C [address] [place] [address] 04/28/2025 1:40 PM EDT Office Visit Rheumatology [place] [address] [place] [address] Sergio Coughlin MD [address] [place] [address] Scheduled Procedures Name Priority Associated Diagnoses Date/Ti [...] D LEVEL ONCE IN A LIFETIME-USE SMARTSET# [id number] Completed 06/08/2024, 04/20/2024, 02/10/2023, Additional history exists [...] this encounter Medical Devices Implanted Type Area Personal Driver Device Identifier Shelf Expiration Date Model / Serial / Lot Port 6fr Chronoflex [id number] - [id number] Implanted:Qty: 1 on 02/22/2008 [place] [facility] [place]: Chest CR BARD : ACCESS [employer] [id number] / / [id number] documented as of this encounter Advance Directives Documents on File Type Date Recorded Patient Double End Tenon Operator Expl anation Advance Directives and Living [...] 1:06 PM 01/16/2008 7:05 PM Care Teams Umbrella Repairer Relationship Specialty Start Date End Date Ruth Brandon MD 200 [place] [address] PCP - General Internal Medicine 04/25/21 documented as of this encounter
--- OUTSIDE RECORDS SUMMARY | 2024-07-24 23:51 | External Medical Summary | Summary of Care ---
Author Name Unknown Organization [facility] Address [address] [place] [place] [address] Phone [phone] Care Team Providers Care Gear Machine Operator Name Role Phone Ruth Brandon MD Primary Care Provider + Reason for Visit * Reason Onset Date Comments Referral 07/12/2024 SP 30-Day Encounter Details Date Type Department Care Team (Late st Contact Info) Description 07/12/2024 New Patient Triage (REPRODUCTION PRODUCTION MANAGER USE ONLY) Hematology/Oncology [facility] 200 [facility] [address] Shonna Gayle CRNP 400 [facility] [place] [address] Referral (SP 30-Day) [...] aorta 06/23/2023 Atherosclerosis of coronary artery of [place] heart without angina pectoris 06/23/2023 Atrial thrombus [...] 01/04/2013 017 HX OF BREAST MALIGNANCY - or ght, [id number], 200702/26/2011 10/04/2013 Polyneuropathy in other dise ases [...] mRNA, LNP-s, No Pre serve, 2-Dose Series ([employer]) 07/19/2021,11/06/2020,10/11/2020 COVID-19, LNP-s, No Preserve , Sony-sucrose, Ages 12+ ([employer]) 12/27/2021 COVID-19, MRNA-LNP, 24-25, P R, 30MCG/0.3ML, IM, 12YRS AND ABOVE ([employer]) 04/28/2024 COVID-19, MRNA-LNP, PF, 30 M CG/0.3 mL, 12 YRS AND ABOVE, IM ([employer]) 07/13/2023 Covid-19, Mrna, Lnp-s, Pf, B ivalent, 30 Mcg, IM, 12 yrs and above ([employer]) 07/17/2022 Influenza, Whole Virus 09/15/1985 Pneumococcal Conjugate [...] No 07/12/2024 Does the household have a [facility] source [facility] income? (Household - [...] documented in this encounter Progress Notes * Shonna Gayle CRNP - 07/12/2024 3:06 [...] referral?: Unspecified SABAS Enter order ID here: [id number] Specialty specific documentation: Hematology/Oncology NEW PATIENT - [...] Surgery, outpatient infusion): No Additional triage comments: [facility] Progress Notes: Page 8, [...] 07/19/2024 12:15 PM EST Office Visit Hematology/Oncology [facility] 200 [facility] [place] [phone] Bahman Brandon MD 200 [facility] [place] [address] 08/02/2024 10:20 AM EST Office Visit Podiatry [facility] [address] [place] [address] Nicki Gomez DPM [address] [place] [address] 10/03/2024 3:00 PM EST Office Visit Cardiology, [facility] [address] [place] [address] Rashmi Graham PA-C [address] [place] [address] 10/04/2024 3:00 PM EST Office Visit General Internal Medicine [facility] [address] [place] [address] [address] Ruth Brandon MD 200 [facility] [place] [address] 11/22/2024 2:00 PM EDT Office Visit Cardiology, [facility] [address] [place] [address] Rashmi Graham, KATHARINE [address] [place] [address] 04/28/2025 1:40 PM EDT Office Visit Rheumatology [facility] [address] [place], [place] [address] Sergio Coughlin MD [address] [place], [place] [address] Scheduled Procedures Name Priority Associated Diagnoses Date/Ti [...] D LEVEL ONCE IN A LIFETIME-USE SMARTSET# [id number] Completed 06/08/2024, 04/20/2024, 02/10/2023, Additional history exists [...] this encounter Medical Devices Implanted Type Area House Registry Rn Device Identifier Shelf Expiration Date Model / Serial / Lot Port 6fr Chronoflex [id number] - [id number] Implanted:Qty: 1 on 02/22/2008 at [place] [facility] [place] Left: Chest CR BARD : [employer] [id number] / / [id number] documented as of this encounter Advance Directives Documents on File Type Date Recorded Patient Business Case Analyst Expl anation Advance Directives and Living Will [...] 1:06 PM 01/16/2008 7:05 PM Care Teams Gear Machine Operator Relationship Specialty Start Date End Date Ruth Brandon MD [address] [place] [address] [place] [address] PCP - General Internal Medicine 04/25/21 documented as of this encounter
--- OUTSIDE RECORDS SUMMARY | 2024-07-24 23:52 | External Medical Summary | Summary of Care ---
Author Name Unknown Organization [facility] Address [address] [place] [address] Phone [phone] Care Team Providers Care Payroll Associate Name Role Phone Ruth Brandon MD Primary Care Provider + Encounter Details Date Type Department Care Team (Late st Contact Info) Description 07/07/2024 Orders Only General Internal Medicine [facility] [place] 200 [facility] [place] [address] Ruth Brandon MD 200 [facility] [place] [address] Allergies Active Allergy Reactions Criticality Noted Date Comments Adhesive Tape Other (Please comment) 01/24/2008 Welts, blisters Bee Stings 02/14/2003 Bee Venom Hives 10/17/2019 Iodine Hives 10/17/2019 Ivp Dye 01/10/1998 hives documented as of this encounter (statuses as of 07/07/2024) Medications VITAMIN B-6 100 MG PO TABS [...] bedtime. 30 Tablet 3 05/30/20 24 Active Apixaban 5 MG Oral Tablet (Eliquis) [...] as of this encounter (statuses as of 07/07/2024) Active Problems Problem Noted Date Diagnosed Date SDH (subdural hematoma) 05/25/2024 PAF (paroxysmal atrial fibrillation) 05/24/2024 Chronic anticoagulation 05/24/2024 Acute blood loss anemia 05/24/2024 AVM (arteriovenous malformat ion) of stomach, acquired with hemorrhage 05/24/2024 Nonischemic cardiomyopathy 03/17/2024 Chronic atrial fibrillation 12/29/2023 Atherosclerosis of aorta 06/23/2023 Atherosclerosis of coronary artery of [place] heart without angina pectoris 06/23/2023 Atrial thrombus [...] as of this encounter (statuses as of 07/07/2024) Resolved Problems Problem Noted Date Diagnosed Date [...] HX OF BREAST MALIGNANCY - ri ght, [id number], 200702/26/2011 10/04/2013 Polyneuropathy in other dise ases [...] as of this encounter (statuses as of 07/07/2024) Immunizations Name Administration Dates Next Due COVID-19 mRNA, LNP-s, No Pre serve, 2-Dose Series ([employer] 07/19/2021,11/06/2020,10/11/2020 COVID-19, LNP-s, No Preserve , Sony-sucrose, Ages 12+ ([employer] 12/27/2021 COVID-19, MRNA-LNP, 24-25, P R, 30MCG/0.3ML, IM, 12YRS AND ABOVE ([facility]) 04/28/2024 COVID-19, MRNA-LNP, PF, 30 M CG/0.3 mL, 12 YRS AND ABOVE, IM ([facility] 07/13/2023 Covid-19, Mrna, Lnp-s, Pf, B ivalent, 30 Mcg, IM, 12 yrs and above ([employer] 07/17/2022 Pneumococcal Conjugate Vacc, 13 Valent (Prevnar) [...] of Assessment Author Yes 05/23/2024 10:36 PM JOYT An Moeller RN * Are you blind [...] 3:30 PM EST Hem/Onc Treatment Hematology/Oncology Treatment, [address] [id number] Christin, Chair [address] [place] [address] 07/12/2024 11:00 AM EST Office Visit General Internal Medicine [facility] 200 [facility] [place] [address] Ruth Brandon MD 200 [facility] [place] [address] 08/02/2024 10:20 AM EST Office Visit Podiatry [facility] [address] [facility] [place] [address] Nicki Gomez DPM [address] [place] [address] 10/03/2024 3:00 PM EST Office Visit Cardiology, [facility] 132 [facility] [place] [address] Rashmi Graham PA-C [address] [place] [address] 10/04/2024 3:00 PM EST Office Visit General Internal Medicine [facility] [address] [place] [address] Ruth Brandon MD 200 [facility] [place] [address] 11/22/2024 2:00 PM EDT Office Visit Cardiology, [facility] [address] [place] [address] Rashmi Graham PA-C [address] [place] [address] 04/28/2025 1:40 PM EDT Office Visit Rheumatology [place] [address] [place], [place] [address] Sergio Coughlin MD [address] [place], [place] [address] Scheduled Procedures Name Priority Associated Diagnoses Date/Ti [...] D LEVEL ONCE IN A LIFETIME-USE SMARTSET# [id number] Completed 06/08/2024, 04/20/2024, 02/10/2023, Additional history exists [...] this encounter Medical Devices Implanted Type Area Polymerization Supervisor Device Identifier Shelf Expiration Date Model / Serial / Lot Port 6fr Chronoflex [id number] - [id number] Implanted:Qty: 1 on 02/22/2008 at [place] [facility] [place] Left: Chest CR BARD : [employer]ESS [employer] [id number] / / [id number] documented as of this encounter Procedures Procedure Name Priority Date/Time Associated Diagnosis Comments UPPER ENDOSCOPY, OUTSIDE PROCEDURE Routine 07/06/2024 COLONOSCOPY, OUTSIDE PROCEDURE Routine 07/06/2024 documented in this encounter Results * COLONOSCOPY, OUTSIDE PROCEDURE (07/06/2024) 07/06/2024 us Evgeny Katz MD GASTRO LOWER Final Res ult OUTSIDE LAB (SEE SCANNED REPORT) * UPPER ENDOSCOPY, OUTSIDE PROCEDURE (07/06/2024) 07/06/2024 us Evgeny Katz MD GASTRO UPPER Final Res ult OUTSIDE LAB (SEE SCANNED REPORT) documented in this encounter Advance Directives Documents on File Type Date Recorded Patient Dragline Engineer Expl anation Advance Directives and Living Will [...] 1:06 PM 01/16/2008 7:05 PM Care Teams Payroll Associate Relationship Specialty Start Date End Date Ruth Brandon MD [address] [place] [address] PCP - General Internal Medicine 04/25/21 documented as of this encounter
--- OUTSIDE RECORDS SUMMARY | 2024-07-24 23:52 | External Medical Summary | Summary of Care ---
Author Name Unknown Organization [facility] Address [address] [facility] [place] [address] Phone [phone] Care Team Providers Care In Processing Instructor Name Role Phone Ruth Brandon MD Primary Care Provider + Reason for Visit * Reason Onset Date Comments Other 07/08/2024 Encounter Details Date Type Department Care Team (Late st Contact Info) Description 07/08/2024 Telephone Cardiology, [facility] [address] [place] [address] Darian Neri, [address] [place] [address] Other Allergies Active Allergy Reactions Criticality Noted Date Comments Adhesive Tape Other (Please comment) 01/24/2008 Welts, blisters Bee Stings 02/14/2003 Bee Venom Hives 10/17/2019 Iodine Hives 10/17/2019 Ivp Dye 01/10/1998 hives documented as of this encounter (statuses as of 07/08/2024) Medications VITAMIN B-6 100 MG PO TABS [...] 06/15/2024 3:46 PM EDT 06/14/20 24 Active Rosuvastatin Calcium 10 MG Oral Tablet (Crestor)Indicatio ns: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) TAKE ONE TABLET BY MOUTH EVERY DAY IN THE MORNING 90 Tablet 3 06/16/20 24 025 Active documented as of this encounter (statuses as of 07/08/2024) Active Problems Problem Noted Date Diagnosed Date SDH (subdural hematoma) 05/25/2024 PAF (paroxysmal atrial fibrillation) 05/24/2024 Chronic anticoagulation 05/24/2024 Acute blood loss anemia 05/24/2024 AVM (arteriovenous malformat ion) of stomach, acquired with hemorrhage 05/24/2024 Nonischemic cardiomyopathy 03/17/2024 Chronic atrial fibrillation 12/29/2023 Atherosclerosis of aorta 06/23/2023 Atherosclerosis of coronary artery of [place] heart without angina pectoris 06/23/2023 Atrial thrombus [...] as of this encounter (statuses as of 07/08/2024) Resolved Problems Problem Noted Date Diagnosed Date [...] HX OF BREAST MALIGNANCY - ri ght, [id number], 200702/26/2011 10/04/2013 Polyneuropathy in other dise ases [...] as of this encounter (statuses as of 07/08/2024) Immunizations Name Administration Dates Next Due COVID-19 mRNA, LNP-s, No Pre serve, 2-Dose Series ([employer]) 07/19/2021,11/06/2020,10/11/2020 COVID-19, LNP-s, No Preserve , Sony-sucrose, Ages 12+ ([employer]) 12/27/2021 COVID-19, MRNA-LNP, 24-25, P R, 30MCG/0.3ML, IM, 12YRS AND ABOVE ([facility]) 04/28/2024 COVID-19, MRNA-LNP, PF, 30 M CG/0.3 mL, 12 YRS AND ABOVE, IM ([employer]) 07/13/2023 Covid-19, Mrna, Lnp-s, Pf, B ivalent, 30 Mcg, IM, 12 yrs and above ([employer]) 07/17/2022 Pneumococcal Conjugate Vacc, 13 Valent (Prevnar) [...] encounter Miscellaneous Notes * Telephone Encounter - Shonna Hamlin RN - 07/08/2024 3:14 PM EST Received notice from Dr. Neri regarding patient inquiring about charge received from ambulance transfer to [facility] [facility] from [facility] on 05/23/[address] for exception could be written. Called, spoke with insurance rep at [facility]. Patient has $100 copay for ambulance services in one direction. Should it be back and forth, would be $200. Rep confirmed the $100 copay was billed and paid for the 05/23/24 transfer. As part of coverage, no further action to reverse charge. Dr. Neri notified of information. documented in this encounter Plan of Treatment Upcoming Encounters Date Type Department Care Team (Late st Contact Info) Description 07/11/2024 3:30 PM EST Hem/Onc Treatment Hematology/Oncology Treatment, [place] [address] [place] [phone] Christin, Chair 9 Hem Onc [address] [place] [address] 07/12/2024 11:00 AM EST Office Visit General Internal Medicine [facility] [address] [place] [address] Ruth Brandon MD [address] [facility] [place] [address] 08/02/2024 10:20 AM EST Office Visit Podiatry [facility] [address] [place] [address] Nicki Gomez, HELLEN [address] [place] [address] 10/03/2024 3:00 PM EST Office Visit Cardiology, [facility] [address] [place] [address] Rashmi Graham PA-C [address] [place] [address] 10/04/2024 3:00 PM EST Office Visit General Internal Medicine [facility] [address] [facility] [place] [address] Ruth Brandon MD [address] [facility] [place], [place] [address] 11/22/2024 2:00 PM EDT Office Visit Cardiology, [facility] [address] [facility] [place] [address] Rashmi Graham PA-C [address] [place] [address] 04/28/2025 1:40 PM EDT Office Visit Rheumatology [address] [place] [address] Sergio Coughlin MD [address] [place] [address] [place] [address] Scheduled Procedures Name Priority Associated Diagnoses Date/Ti [...] D LEVEL ONCE IN A LIFETIME-USE SMARTSET# [id number] Completed 06/08/2024, 04/20/2024, 02/10/2023, Additional history exists [...] this encounter Medical Devices Implanted Type Area Psychiatric Specialist Device Identifier Shelf Expiration Date Model / Serial / Lot Port 6fr Chronoflex [id number] - [id number] Implanted:Qty: 1 on 02/22/2008 at [facility] Left: Chest CR BARD : [employer]ESS SYSTEM[employer] [id number] / / [id number] documented as of this encounter Advance Directives Documents on File Type Date Recorded Patient Agricultural Pilot Expl anation Advance Directives and Living Will [...] 1:06 PM 01/16/2008 7:05 PM Care Teams In Processing Instructor Relationship Specialty Start Date End Date Ruth Brandon MD [address] [place] [address] PCP - General Internal Medicine 04/25/21 documented as of this encounter
--- OUTSIDE RECORDS SUMMARY | 2024-07-24 23:52 | External Medical Summary | Summary of Care ---
Author Name Unknown Organization [facility] Address [address] [facility] [place] [address] Phone [phone] Care Team Providers Care Sugar Coating Hand Name Role Phone Ruth Brandon MD Primary Care Provider + Encounter Details Date Type Department Care Team (Late st Contact Info) Description 07/05/2024 Result Scan Unspecified Department Ramsey Gonsalez MD [address] [place] [address] <No scans attached> Allergies Active Allergy Reactions Criticality Noted Date Comments Adhesive Tape Other (Please comment) 01/24/2008 Welts, blisters Bee Stings 02/14/2003 Bee Venom Hives 10/17/2019 Iodine Hives 10/17/2019 Ivp Dye 01/10/1998 hives documented as of this encounter (statuses as of 07/05/2024) Medications VITAMIN B-6 100 MG PO TABS [...] Active Levothyroxine Sodium 25 MCG Oral Tablet (Levoxyl)Vandanatio ns:Other specified hypothyroidism TAKE ONE TABLET BY [...] as of this encounter (statuses as of 07/05/2024) Active Problems Problem Noted Date Diagnosed Date SDH (subdural hematoma) 05/25/2024 PAF (paroxysmal atrial fibrillation) 05/24/2024 Chronic anticoagulation 05/24/2024 Acute blood loss anemia 05/24/2024 AVM (arteriovenous malformat ion) of stomach, acquired with hemorrhage 05/24/2024 Nonischemic cardiomyopathy 03/17/2024 Chronic atrial fibrillation 12/29/2023 Atherosclerosis of aorta 06/23/2023 Atherosclerosis of coronary artery of [place] heart without angina pectoris 06/23/2023 Atrial thrombus [...] as of this encounter (statuses as of 07/05/2024) Resolved Problems Problem Noted Date Diagnosed Date [...] HX OF BREAST MALIGNANCY - ri ght, [id number], 200702/26/2011 10/04/2013 Polyneuropathy in other dise ases [...] as of this encounter (statuses as of 07/05/2024) Immunizations Name Administration Dates Next Due COVID-19 mRNA, LNP-s, No Pre serve, 2-Dose Series ([employer]) 07/19/2021,11/06/2020,10/11/2020 COVID-19, LNP-s, No Preserve , Sony-sucrose, Ages 12+ ([employer]) 12/27/2021 COVID-19, MRNA-LNP, 24-25, P R, 30MCG/0.3ML, IM, 12YRS AND ABOVE ([facility]) 04/28/2024 COVID-19, MRNA-LNP, PF, 30 M CG/0.3 mL, 12 YRS AND ABOVE, IM ([facility]) 07/13/2023 Covid-19, Mrna, Lnp-s, Pf, B ivalent, 30 Mcg, IM, 12 yrs and above ([employer]) 07/17/2022 Pneumococcal Conjugate Vacc, 13 Valent (Prevnar) [...] Author No 05/23/2024 10:36 PM JOYT An Moelelr RN * Do you have serious difficulty [...] An Moeller RN documented in this encounter Plan of Treatment Upcoming Encounters Date Type Department Care Team (Late st Contact Info) Description 07/11/2024 3:30 PM EST Hem/Onc Treatment Hematology/[facility]cology [facility], [place] [facility] [phone] Christin, Chair 9 Hem Onc [facility] 200 [facility] [place] [address] 08/02/2024 10:20 AM EST Office Visit Podiatry [facility] [address] [place] [address] Nicki Gomez DPM [address] [place] [address] 10/03/2024 3:00 PM EST Office Visit Cardiology, [facility] [address] [place] [address] Rashmi Graham PA-C [address] [place] [address] 10/04/2024 3:00 PM EST Office Visit General Internal Medicine [facility] [address] [place] [address] Ruth Brandon MD [address] [place] [address] 11/22/2024 2:00 PM EDT Office Visit Cardiology, [facility] [address] [place] [address] Rashmi Graham, KATHARINE [address] [place] [address] 04/28/2025 1:40 PM EDT Office Visit Rheumatology [facility] [address] [place], [place] [address] Sergio Coughlin MD [address] [place], [place] [address] Scheduled Procedures Name Priority Associated Diagnoses Date/Ti [...] D LEVEL ONCE IN A LIFETIME-USE SMARTSET# [id number] Completed 06/08/2024, 04/20/2024, 02/10/2023, Additional history exists [...] this encounter Medical Devices Implanted Type Area President & Founder Device Identifier Shelf Expiration Date Model / Serial / Lot Port 6fr Chronoflex [id number] - [id number] Implanted:Qty: 1 on 02/22/2008 at [place] [facility] Left: Chest CR BARD : ACCESS SYSTEMS [id number] / / [id number] documented as of this encounter Procedures Procedure Name Priority Date/Time Associated Diagnosis Comments CARDIOLOGY SCANNED RESULT 07/05/2024 documented in this encounter Results * CARDIOLOGY SCANNED RESULT (07/05/2024) 07/05/2024 Ramsey Gonsalez MD OTHER Final Result documented in this encounter Advance Directives Documents on File Type Date Recorded Patient Trouble Clerk Expl anation Advance Directives and Living Will [...] 1:06 PM 01/16/2008 7:05 PM Care Teams Sugar Coating Hand Relationship Specialty Start Date End Date Ruth Brandon MD [address] [place] [address] PCP - General Internal Medicine 04/25/21 documented as of this encounter
--- OUTSIDE RECORDS SUMMARY | 2024-07-24 23:52 | External Medical Summary | Summary of Care ---
Author Name Unknown Organization [facility] Address [address] [place] [address] Phone [phone] Care Team Providers Care Community Health Program Representative Name Role Phone Ruth Brandon MD Primary Care Provider + Encounter Details Date Type Department Care Team (Late st Contact Info) Description 07/05/2024 Population Health External Data Unspecified Department Allergies [...] aorta 06/23/2023 Atherosclerosis of coronary artery of [place] heart without angina pectoris 06/23/2023 Atrial thrombus [...] HX OF BREAST MALIGNANCY - ri ght, [id number], 200702/26/2011 10/04/2013 Polyneuropathy in other dise ases [...] mRNA, LNP-s, No Pre serve, 2-Dose Series ([employer]) 07/19/2021,11/06/2020,10/11/2020 COVID-19, LNP-s, No Preserve , Sony-sucrose, Ages 12+ ([employer]) 12/27/2021 COVID-19, MRNA-LNP, 24-25, P R, 30MCG/0.3ML, IM, 12YRS AND ABOVE ([facility]) 04/28/2024 COVID-19, MRNA-LNP, PF, 30 M CG/0.3 mL, 12 YRS AND ABOVE, IM ([facility]) 07/13/2023 Covid-19, Mrna, Lnp-s, Pf, B ivalent, 30 Mcg, IM, 12 yrs and above ([employer]) 07/17/2022 Pneumococcal Conjugate Vacc, 13 Valent (Prevnar) [...] 3:30 PM EST Hem/Onc Treatment Hematology/Oncology Treatment, [place] [address] [facility] [address] [place] [phone] Christin, Chair 9 Hem Onc [facility] [address] [facility] [place] [address] 08/02/2024 10:20 AM EST Office Visit Podiatry [facility] [address] [place] [address] Nicki Gomez DPM [facility] [place] [address] 10/03/2024 3:00 PM EST Office Visit Cardiology, [facility] [address] [place] [address] Rashmi Graham PA-C [address] [facility] [place] [address] 10/04/2024 3:00 PM EST Office Visit General Internal Medicine [facility] Christin [place] [address] [place] [address] Ruth Brandon MD [address] [facility] COUNT INCLUD[facility] [place] [address] 11/22/2024 2:00 PM EDT Office Visit Cardiology, [facility] [address] [place] [address] Rashmi Graham PA-C [address] [place] [address] 04/28/2025 1:40 PM EDT Office Visit Rheumatology [facility] [address] [place] [address] Sergio Coughlin MD [address] [place] [address] Scheduled Procedures Name Priority Associated Diagnoses Date/Ti [...] D LEVEL ONCE IN A LIFETIME-USE SMARTSET# [id number] Completed 06/08/2024, 04/20/2024, 02/10/2023, Additional history exists [...] this encounter Medical Devices Implanted Type Area Home Sales Service Professional Device Identifier Shelf Expiration Date Model / Serial / Lot Port 6fr Chronoflex [id number] - [id number] Implanted:Qty: 1 on 02/22/2008 at [place] [facility] [place] Left: Chest CR BARD : ACCESS SYSTEM[employer] [id number] / / [id number] documented as of this encounter Advance Directives Documents on File Type Date Recorded Patient Paper Cap Machine Operator Expl anation Advance Directives and [...] PM 01/16/2008 7:05 PM Care Teams Community Health Program Representative Relationship Specialty Start Date End Date Ruth Brandon MD [address] [facility] [place], [place] [address] PCP - General Internal Medicine 04/25/21 documented as of this encounter
--- NOTE | 2024-07-25 07:51 | Discharge Summary ---
Date of Service July 25, 2024 Admission HPI Per Admitting Provider 79-year-old female with past medical history significant for hypothyroidism, chronic systolic and diastolic CHF, idiopathic cardiomyopathy, paroxysmal atrial fibrillation, mitral valve disorder, hypertension, presence of AICD, history of atrial thrombus, atherosclerosis of aorta, history of CAD, AVM of stomach, Yi's esophagus, GERD, restless leg syndrome, degenerative disc disease, spinal osteoporosis, history of subdural hematoma, history of acute blood loss anemia, history of breast cancer presents with epistaxis and found to have elevated INR. Patient states she is blowing her nose and started to have bleeding from right nostril which she tried to stop but was not stopping and on the way to hospital she also had bleeding from the left nostrils. In the ER the bleeding is stopped currently. Because of elevated INR we are called for admission. Patient denies any headache. No chest pain or shortness of breath. No abdominal pain. Denies any blood in the stools or black stools. No hematuria. Hemodynamics are okay. Resting comfortably. As per heme-onc notes in epic :"patient has history of atrial thrombus and paroxysmal atrial fibrillation and she was on Coumadin since early 2022. In O ct2023 she admitted at [facility] for black stools. Hemoglobin was 6.4 and her platelets dropped to 110 range. PT was over 90 seconds INR was over 9.5. She was also prolonged PTT to 112 and received vitamin K 10 mg and received 4 units PRBCs and Coumadin was held. EGD showed 2 nonbleeding angiectasia in the stomach. With vitamin K PTT dropped down to 41 seconds. She complained of headaches CAT scan was done which showed trace acute subdural hemorrhage along the anterior and posterior aspect of the falx and possible subdural hemorrhage overlying the bilateral temporal lobes . She was transferred to [facility] and was treated conservatively. And she received an additional blood transfusion at [facility]. Then she followed with neurosurgery team and a repeat CAT scan on 06/02/2024 showed near complete resolution of subdural hematoma. She was started on Eliquis 5 mg twice daily on 06/26/2020 for for previous atrial thrombus and paroxysmal atrial fibrillation. And about a week later again she started to have black stools and was seen in [facility]. Again PT and PT were prolonged. GI bleed scan done which showed no suspicious findings. EGD and colonoscopy were performed which showed multiple gastric polyps without evidence of varices or esophagitis. No polyps on colonoscopy. Eliquis was discontinued since then." Patient followed with heme-onc. Mixing study, factor VII, factor VIII, factor X and fibrinogen level and thrombin time are checked. It was thought her acquired condition of prolonged PT and PTT could be liver disease or could be vitamin K deficiency. Heme-onc ordered vitamin K 5 mg once daily on 07/22/2024 and like to see her in clinic on coming July 29. Past med history. As mentioned above Past surgical history. Biopsy of deep axillary lymph node. Cardiac catheterization. Colonoscopy. Dilatation and curettaged. EGD. Ligation of the duct. Simple complete mastectomy. Thoracostomy tube. Angioplasty. Social history. . No smoking. Alcohol rarely. No drug use. Family history. Sister had breast cancer. Brother had thyroid cancer. Brother had brain cancer. Father had AR. Sister had MVP. Mother had hypertension. Admission Exam Per Admitting Provider Physical Exam: General- Not in distress Head- atraumatic Eyes- PERRL. ENT- oropharynx clear Neck- supple, no JVD. Lungs- clear to auscultation no wheezing or crackles Heart- regular rhythm; no murmur, no gallop. Abdomen- normal bowel sounds, soft, nontender, no distension Extremities- no pretibial edema, no erythema seen Neuro- alert, oriented PERRL, no facial palsy; no dysarthria; moves extremities Principal Diagnosis Nosebleed- stopped, isolated elevation INR and APTT on vitamin K supplement, chronic atrial fibrillation off anticoagulation due to GI bleed Discharge Exam Lying in bed without any acute distress Constitutional well developed, well nourished and + obese; not ill appearing Eyes PERRL, conjunctivae normal, anicteric sclerae ENMT external ear and nose normal, oropharynx normal Neck trachea midline, no thyromegaly Respiratory no respiratory distress Auscultation: lungs clear to auscultation bilaterally Cardiovascular Rate/Rhythm: regular rate and regular rhythm; not tachycardic Heart Sounds: normal S1, normal S2 and + murmur (2/6 ESM over precordium) Extremities: + edema (Trace edema bilaterally) Gastrointestinal (Abdomen) Inspection/Auscultation: normal bowel sounds; abdomen not distended Percussion/Palpation: + abdomen tender ( minimally tender in the left mid quadrant) and abdomen soft Neurologic normal touch/pain/proprioception and moves all extremities; no focal motor deficits Psychiatric A+Ox3, euthymic affect Lymphatic no cervical or axillary lymphadenopathy Discharge Data Allergies Allergy/AdvReac Type Severity Reaction Status Date / Time adhesive Allergy Unknown WELTS AND Verified 07/23/24 01:55 PULLS SKIN bee venom protein (honey bee) Allergy Unknown SWELLING Verified 07/23/24 01:55 Iodinated Contrast Media Allergy Unknown HIVES Verified 07/23/24 01:55 perflutren AdvReac Severe Back pain Verified 07/23/24 01:55 propylene glycol AdvReac Severe Back pain Verified 07/23/24 01:55 Consultations 07/23/24 01:43 ED Decision to Admit Stat Hospital Course (1) Epistaxis: 79-year-old female with past medical history significant for hypothyroidism, chronic systolic and diastolic CHF, idiopathic cardiomyopathy, paroxysmal atrial fibrillation, mitral valve disorder, hypertension, presence of AICD, history of atrial thrombus, atherosclerosis of aorta, history of CAD, AVM of stomach, Yi's esophagus, GERD, restless leg syndrome, degenerative disc disease, spinal osteoporosis, history of subdural hematoma, history of acute blood loss anemia, history of breast cancer presents with epistaxis and found to have elevated INR. Patient states she is blowing her nose and started to have bleeding from right nostril which she tried to stop but was not stopping and on the way to hospital she also had bleeding from the left nostrils. In the ER the bleeding is stopped currently. Because of elevated INR we are called for admission. Patient denies any headache. No chest pain or shortness of breath. No abdominal pain. Denies any blood in the stools or black stools. No hematuria. Hemodynamics are okay. Resting comfortably. As per heme-onc notes in epic :"patient has history of atrial thrombus and paroxysmal atrial fibrillation and she was on Coumadin since early 2022. In May 2024 she admitted at [facility] for black stools. Hemoglobin was 6.4 and her platelets dropped to 110 range. PT was over 90 seconds INR was over 9.5. She was also prolonged PTT to 112 and received vitamin K 10 mg and received 4 units PRBCs and Coumadin was held. EGD showed 2 nonbleeding angiectasia in the stomach. With vitamin K PTT dropped down to 41 seconds. She complained of headaches CAT scan was done which showed trace acute subdural hemorrhage along the anterior and posterior aspect of the falx and possible subdural hemorrhage overlying the bilateral temporal lobes . She was transferred to [facility] and was treated conservatively. And she received an additional blood transfusion at [facility]. Then she followed with neurosurgery team and a repeat CAT scan on 06/02/2024 showed near complete resolution of subdural hematoma. She was started on Eliquis 5 mg twice daily on 06/26/2020 for for previous atrial thrombus and paroxysmal atrial fibrillation. And about a week later again she started to have black stools and was seen in [facility]. Again PT and PT were prolonged. GI bleed scan done which showed no suspicious findings. EGD and colonoscopy were performed which showed multiple gastric polyps without evidence of varices or esophagitis. No polyps on colonoscopy. Eliquis was discontinued since then." Patient followed with heme-onc. Mixing study, factor VII, factor VIII, factor X and fibrinogen level and thrombin time are checked. It was thought her acquired condition of prolonged PT and PTT could be liver disease or could be vitamin K deficiency. Heme-onc ordered vitamin K 5 mg once daily on 07/22/2024 and like to see her in clinic on coming July 29. Epistaxis Spontaneous epistaxis and resolved in the emergency room following minimal maneuver No evidence of bleeding from any other sites Hemoglobin remains stable and no more epistaxis since admission Will monitor H&H and observe in hospital Not on any anticoagulation due to GI bleed and also subarachnoid hemorrhage in the past No more epistaxis since admission and the hemoglobin remains stable Elevated INR and PT and APTT No not on anticoagulation INR was greater than 9.5 A PTT 115, PT greater than 90 Heme-onc working up-advised to have vitamin K daily and follow-up with heme-onc on Thursday Has been receiving vitamin K 5 mg daily from 07/22/2024 INR still remains elevated at more than 9 with increased APTT LFTs are otherwise normal Will monitor INR and LFTsif INR improves/improving she will be discharged tomorrow INR has improved to 5.3 and APTT has improved to 74 She will be discharged on vitamin K 2.5 mg daily and PT/INR will be checked as an outpatient on Thursday She was advised to keep appointment with the air and water filler on [place] Chronic systolic and diastolic CHF Systolic improvement post biventricular pacemaker implantation Echo done on 05/2024 shows EF of 55 to 60% and grade 2 diastolic dysfunction Continue home Lasix and Entresto and metoprolol succinate Does not have any signs and or symptoms of fluid overload History of atrial fibrillation On amiodarone and metoprolol succinate Not on anticoag secondary to GI bleed History of breast cancer right side status postmastectomy chemotherapy and radiation therapy Chronic left bundle branch block Recent subdural hematoma History of GI bleed Continue Protonix Hypothyroidism On Synthroid Hypertension On Entresto metoprolol succinate and Lasix Hyperlipidemia On statin DVT prophylaxis SCDs for now Disposition Telemetry Full code Total Time Total Time Spent Total Time Spent (In Minutes): 35 minutes Discharge Plan Discharge Items Patient Disposition: Home - Self-Care Reason For Visit: NOSE BLEED, ELEVATED INR Discharge Diagnosis: nosebleed- stopped, isolated elevation INR and APTT on vitamin K supplement, chronic atrial fibrillation off anticoagulation due to GI bleed Condition on Discharge: Good Activity: Resume your previous activity Non-emergency contact: Primary Care Provider Call non-emergency contact if: you have any medication questions and your symptoms worsen Follow-up/Referrals: Ruth Brandon MD [Primary Care Provider] - ( Your doctor's office will give you a call on Thursday with an appointment within 7 days) Diet: Heart Healthy Addtl Attending Provider Instructions: Please take precautions to avoid falls You will take vitamin K 2.5 mg daily and will have regular check with INR and APTT at your doctor's office Please keep appointment with the air and water filler on Thursday Keep regular appointment with the pv design engineer as planned before Pending Studies at Discharge: No Stand-Alone Forms: My [employer], Smoking Cessation Medications and DC Order Prescriptions: New phytonadione (vitamin K1) 5 mg Tablet 2.5 mg PO DAILY Qty: 15 0RF Continued levothyroxine 25 mcg Tablet 25 mcg PO QAM calcium carbonate [Calcium 500] 500 mg calcium (1,250 mg) Tablet 1,250 mg PO QAM pantoprazole 40 mg Tablet,Delayed Release (Dr/Ec) 40 mg PO [facility] furosemide 20 mg Tablet 20 mg PO [id number] Rx Instructions: Take 20mg by mouth on /T/W/T/ and ONLY take 20mg on S/S IF additional swelling/fluid retention pyridoxine (vitamin B6) [Vitamin B-6] 100 mg Tablet 100 mg PO QAM cholecalciferol (vitamin D3) [Vitamin D3] 2,000 unit Tablet 1,000 unit PO QAM sacubitril-valsartan [Entresto] 24-26 mg Tablet 1 tab PO [facility]HS amiodarone 200 mg tablet 100 mg PO QAM Rx Instructions: 100 MG ONCE A DAY PER PT ON 05/20/24 rosuvastatin 10 mg tablet 10 mg PO QAM metoprolol succinate 25 mg Tablet Extended Release 24 Hr 25 mg PO QAM Qty: 30 0RF Discharge Orders: Discharge Order (Routine); Ordered 07/24/24 Ordered By: Clyde Hong Admission Data Admit Date/Time: 07/23/24 03:13 Attending Provider: Clyde Hong Admit Provider: Ra Ryan Primary Care Provider: Ruth Brandon Other Providers: Ra Ryan Other Interventions: Discharge Summary Assessment (RN) Last Done: 07/24/24 11:52
[2024-07-25] MEDS ORDERED: FUROSEMIDE 20 MG TAB PO SCH (09:00)
== END 2024-07-24 13:36 | disposition home or self-care (01) | DRG 151 ==
LOC: ED 23:33 → 2N 07-23 03:13